=== PATIENT | female | born 1935 | race Caucasian/White ===

== ENCOUNTER 2017-06-13 11:49 | Inpatient (IN) | payer MEDICARE, OTHER ==
[~2017-06-13] VITALS: Ht 160 cm; Wt 71.0 kg
[~2017-06-13 11:49] MED LIST: ASPI325T4 PO; ATOR10TA65 PO; HYDR-3672 PO; LEVO100T87 PO; LOSA25TA5 PO; METF500T4 PO; MONT10TA24 PO; OMEP20CA16 PO; RANI150T5 PO
[2017-06-13 11:53] VITALS: Ht 160 cm; Wt 71.0 kg
[2017-06-13 12:10] VITALS: TEMP 97.8
[2017-06-13 12:38] LABS: BASOPHILS % 0.3 % (0.0-2.0); EOSINOPHILS # 0.1 10^3/ul (0.0-0.5); EOSINOPHILS % 1.5 % (0.0-7.0); HEMATOCRIT 34.1 % (37.0-47.0); HEMOGLOBIN 10.9 g/dl (12.0-16.0); LYMPHOCYTES # 0.9 10^3/ul (0.8-2.9); LYMPHOCYTES % 13.9 % (15.0-51.0); MEAN CORPUSCULAR HEMOGLOBIN 30.3 pg (29.0-33.0); MEAN CORPUSCULAR VOLUME 94.7 fl (82.0-101.0); MEAN PLATELET VOLUME 10.1 fl (7.4-10.4); MONOCYTE # 0.5 10^3/ul (0.3-0.9); MONOCYTES % 7.3 % (0.0-11.0); NEUTROPHIL # 5.1 10^3/ul (1.6-7.5); NEUTROPHILS % 76.8 % (39.0-77.0); PLATELET COUNT 258 10^3/UL (140-415); RED CELL DISTRIBUTION WIDTH 14.6 % (11.5-14.5); WHITE BLOOD COUNT 6.6 10^3/ul (4.8-10.8)
--- NOTE | 2017-06-13 13:01 | RADRPT ---
PROCEDURE: XR Chest. CLINICAL INDICATION: Chest pain. TECHNIQUE: Single frontal view. COMPARISON: 11/08/2015. FINDINGS: There is mild atelectasis at both lung bases, worse than seen previously. There is bilateral interst itial disease consistent with mild pulmonary edema. The lungs are otherwise clear. The heart is enlarged. There is calcification in the aorta consistent with atherosclerosis. There is no pleural effusion. There is no pneumothorax. IMPRESSION: 1. Mild atelectasis at the lung bases, worse than seen previously. 2. Mild pulmonary edema. 3. Cardiomegaly and atherosclerosis. 4. No other change from the 11/18/2015 chest radiograph. RPTAT: QQ .Javed Velasquez MD, MD Date Time Electronically viewed and signed by .Javed Velasquez MD, on 06/13/2017 13:01 .R/
[2017-06-13 13:03] LABS: CALCIUM 9.3 mg/dl (8.4-10.2); CREATININE 1.23 mg/dl (0.44-1.00); POTASSIUM 4.4 mmol/L (3.5-5.1)
[2017-06-13 13:14] LABS: TROPONIN-I 0.046 ng/ml (0.00-0.12)
--- NOTE | 2017-06-13 13:37 | RADRPT ---
PROCEDURE: CT Brain without contrast. CLINICAL INDICATION: Headache. TECHNIQUE: A CT of the brain was performed on multidetector high-resolution CT scanner utilizing a xial sections from the skull base through the vertex without contrast. The scan was reviewed in sof t tissue brain and high frequency resolution bone algorithm windows. Images were reviewed on a high -resolution PACS workstation. One or more the following does reduction techniques were utilized: Aut omated exposure control, adjustment of the mA/ or kV according to patient's size, or use of iterativ e reconstruction technique. The exam CTDI = 43.16 mGy and the DLP = 630.2 mGy-cm. COMPARISON: Brain CT 11/18/2015. FINDINGS: The ventricles and sulci are mildly prominent indicative of volume loss. There is no intracranial h emorrhage, mass effect or midline shift. No abnormal intra-axial or extra-axial fluid collections a re seen. The ken/white matter differentiation is preserved. There are mild to moderate foci of hypoattenuation in the white matter, which are nonspecific in rashawn ology but likely reflect chronic small vessel ischemic changes. There are mild intracranial vascula r calcifications consistent with atherosclerosis. The visualized paranasal sinuses are essentially c lear. IMPRESSION: 1. No acute intracranial hemorrhage, transcortical infarction or mass effect. 2. Mild intracranial atherosclerosis and mild to moderate chronic small vessel ischemic changes. 3. Mild generalized cerebral volume loss. RPTAT: HH .Jose G Aretaga MD, MD Date Time Electronically viewed and signed by .Jose G Arteaga MD, MD on 06/13/2017 13:36 .N/
[2017-06-13] MEDS ORDERED: ASPIRIN 81 MG TAB PO ONE (14:30)
[2017-06-13] MEDS ORDERED: SOD CHLORIDE 0.45% 1,000 ML IV SCH (15:27)
--- NOTE | 2017-06-13 15:27 | ERD ---
ER Documentation Chief Complaint Chief Complaint HTN FOR 2 DAYS; DENIES CP; NO SOB NOTED. STATES SHE IS ANXIOUS. HPI This is an 82-year-old female history of hypertension who presents to the emergency room for multiple complaints. History is provided via family member. The patient describes several days of elevated blood pressure despite compliance with blood pressure medication regimen. Her blood pressure was in the 170s and 180s last night, she also describes some chest pressure that was transient, pressure-like and nonradiating approximately 3 out of 10. She denies any headache. She does take Eliquis for atrial fibrillation. She is also describing increasing anxiety and depression over a 2-3 month timeframe. No suicidal thoughts. ROS All systems reviewed and are negative except as per history of present illness. Medications Home Meds Active Scripts Hydralazine Hcl* (Hydralazine Hcl*) 50 Mg Tab, 100 MG PO Q8 for 28 Days, TAB Prov:HARSHAD CLEARY MD 08/03/15 Atorvastatin Calcium (Atorvastatin Calcium) 10 Mg Tab, 10 MG PO HS for 28 Days, TAB Prov:HARSHAD CLEARY MD 08/03/15 Reported Medications Aspirin* (Aspirin*) 325 Mg Tablet, 325 MG PO DAILY, TAB 11/18/15 Montelukast Sodium* (Montelukast Sodium*) 10 Mg Tablet, 10 MG PO QHS, #30 TAB 11/18/15 Metformin* (Glucophage*) 500 Mg Tab, 500 MG PO BID WITH MEALS, #60 TAB 11/18/15 Losartan Potassium* (Losartan Potassium*) 25 Mg Tablet, 25 MG PO DAILY, TAB 11/18/15 Ranitidine Hcl* (Ranitidine Hcl*) 150 Mg Tablet, 150 MG PO HS, TAB 07/28/15 Omeprazole* (Omeprazole*) 20 Mg Capsule.dr, 20 MG PO AC BREAKFAST, CAP 12/17/14 Levothyroxine Sodium* (Levothyroxine Sodium*) 100 Mcg Tablet, 100 MCG PO DAILY, #1 03/13/11 Allergies Allergies: Coded Allergies: No Known Allergies (Verified Allergy, Unknown, 12/17/14) PMhx/Soc History of Surgery: No (right eye cataract sx) Anesthesia Reaction: No Hx Neurological Disorder: No Hx Respiratory Disorders: No Hx Cardiac Disorders: Yes (HTN, Dyspilidemia, atrial fibrillation) Hx Psychiatric Problems: No Hx Miscellaneous Medical Probl: No (Diet controlled DM) Hx Alcohol Use: Yes (social drinking ) Hx Substance Use: No Hx Tobacco Use: No Smoking Status: Never smoker FmHx Family History: No diabetes Physical Exam Vitals Vital Signs Date Time Temp Pulse Resp B/P Pulse Ox O2 Delivery O2 Flow Rate FiO2 06/13/17 15:09 120 18 176/89 100 Room Air 06/13/17 13:30 101 18 161/81 100 Room Air 06/13/17 12:10 97.8 97 18 146/99 100 Room Air 06/13/17 11:53 97.8 72 18 168/84 97 Physical Exam General: Well developed, well nourished, no acute distress Head: Normocephalic, atraumatic. Eyes: Pupils equally reactive, EOM intact ENT: Moist mucous membranes Neck: Supple, no lymphadenopathy Respiratory: Lungs clear bilaterally, no distress Cardiovascular: RRR, no murmurs, rubs, or gallops Abdominal: Soft, non-tender, non-distended, no peritoneal signs : Deferred MSK: No edema, no unilateral swelling, 5/5 strength Neurologic: Alert and oriented, moving all extremities, normal speech, no focal weakness, no cerebellar signs Skin: No rash Psych: Slight depression, no SI, anxiety noted Result Diagram: 06/13/17 1214 06/13/17 1214 Results 24 hrs Laboratory Tests Test 06/13/17 12:14 White Blood Count 6.610^3/ul Red Blood Count 3.6010^6/ul Hemoglobin 10.9g/dl Hematocrit 34.1% Mean Corpuscular Volume 94.7fl Mean Corpuscular Hemoglobin 30.3pg Mean Corpuscular Hemoglobin Concent 32.0g/dl Red Cell Distribution Width 14.6% Platelet Count 30904^3/UL Mean Platelet Volume 10.1fl Neutrophils % 76.8% Lymphocytes % 13.9% Monocytes % 7.3% Eosinophils % 1.5% Basophils % 0.3% Nucleated Red Blood Cells % 0.0/100WBC Neutrophils # 5.110^3/ul Lymphocytes # 0.910^3/ul Monocytes # 0.510^3/ul Eosinophils # 0.110^3/ul Basophils # 0.010^3/ul Nucleated Red Blood Cells # 0.010^3/ul Sodium Level 139mmol/L Potassium Level 4.4mmol/L Chloride Level 100mmol/L Carbon Dioxide Level 28mmol/L Anion Gap 15 Blood Urea Nitrogen 26mg/dl Creatinine 1.23mg/dl Glucose Level 136mg/dl Calcium Level 9.3mg/dl Troponin I 0.046ng/ml Current Medications Medications (Trade) Dose Ordered Sig/Yosef Route PRN Reason Start Time Stop Time Status Last Admin Dose Admin Aspirin (Aspirin) 324 mg ONCE ONCE PO 06/13/17 14:30 06/13/17 14:31 DC 06/13/17 15:16 Ondansetron HCl (Zofran Inj) 4 mg ER BRIDGE PRN IV NAUSEA AND/OR VOMITING 06/13/17 15:30 06/14/17 15:29 Acetaminophen (Tylenol Tab) 650 mg ER BRIDGE PRN PO MILD PAIN/FEVER 06/13/17 15:30 06/14/17 15:29 Alprazolam (Xanax) 0.125 mg ONCE ONCE PO 06/13/17 15:30 06/13/17 15:31 Procedures/MDM EKG, MONITORS, & DIAGNOSTIC IMAGING: EKG: EKG: I reviewed and interpreted a 12-lead EKG. Rhythm: a fib rate controlled Ectopy: None Intervals: No abnormalities ST segments: No elevations or depressions T waves: No contiguous inversions Chest x-ray: I reviewed and interpreted a 1 view of the chest Mediastinum: No enlargement Cardiac silhouette: No cardiomegaly Airspace: Clear lung lechuga bilaterally without evidence of pneumothorax Bones: No evidence of fracture CT brain: no acute process per radiology LAB INTERPRETATION: Mild anemia, mild renal insufficiency, negative troponin, UA pending MEDICAL DECISION MAKING: The patient's history, physical exam and clinical presentation is concerning for possible cardiogenic etiology and acute coronary syndrome. The patient's blood pressure was also elevated consistent with likely hypertensive urgency. No evidence of migratory pain to suggest dissection. The patient also has increasing depression which is likely leading to her presentation as well. Based on the patient's clinical exam and history and risk factors, I have a much lower clinical concern for pulmonary embolism, acute aortic dissection, pneumothorax, pneumonia, cardiac tamponade HEART Score: 4 MACE Rate: Upwards of 16.6% Shared Decision Making: We had a conversation regarding risk stratification, MACE rate, and the risks, benefits, alternatives of disposition planning options. Disposition planning: i recommend hospitalization to rule out ACS ER COURSE: The patient was given aspirin. She is asking for half a tablet of her Xanax which was provided. The patient's blood pressure was controlled on its own. The patient's rate is controlled with atrial fibrillation, no indication of RVR. The patient is stable at this point. I spoke to the transferring physician who recommends admission to our facility for observation status. This is reasonable. The patient will likely require outpatient follow-up in psychiatry evaluation. Potentially a artificial breeding ranch supervisor would be appropriate for this patient. She is a primary care appointment on Friday. I kept the patient and/or family informed of laboratory and diagnostic imaging results throughout the emergency room course. DISPOSITION PLAN: Telemetry admission for management of chest pain to rule out acute coronary syndrome, serial enzymes, risk stratification and consideration of provocative testing CONSULTATION: Accepting care team and consultations: I discussed the current laboratory data, diagnostic imaging and emergency care provided. Admitting team: Dr. Ray Admitting team indication: Insurance directed Departure Diagnosis: Primary Impression: History of atrial fibrillation Additional Impressions: Chest pain Chest pain type: unspecified Qualified Code: R07.9 - Chest pain, unspecified type Hypertensive urgency Depression Depression Type: unspecified Qualified Code: F32.9 - Depression, unspecified depression type Condition: NEVILLE Barton MD Jun 13, 2017 15:27
[2017-06-13] MEDS ORDERED: ALBUTEROL/IPRATROPIUM (NEB) 3 ML AMP HHN PRN (15:30)
[2017-06-13] MEDS ORDERED: NITROGLYCERIN (SL) 0.4 MG TAB SL PRN (15:30)
[2017-06-13] MEDS ORDERED: HYDROCODONE/APAP (5/325) TAB PO PRN (15:30)
[2017-06-13] MEDS ORDERED: ALPRAZOLAM 0.25 MG TAB PO ONE (15:30)
[2017-06-13] MEDS ORDERED: DOCUSATE SODIUM 100 MG CAP PO PRN (15:30)
[2017-06-13] MEDS ORDERED: morphine 2 MG INJ IV PRN (15:30)
[2017-06-13] MEDS ORDERED: NA PHOSPHATE/BIPHOS 133 ML ENEMA PR PRN (15:30)
[2017-06-13] MEDS ORDERED: ONDANSETRON 4 MG INJ IV PRN (15:30)
[2017-06-13] MEDS ORDERED: NACL 0.9% 3 ML SYG IV SCH (15:30)
[2017-06-13] MEDS ORDERED: ACETAMINOPHEN 325 MG TAB PO PRN (15:30)
[2017-06-13] MEDS ORDERED: MAGNESIUM HYDROXIDE 30ML CUP PO PRN (15:30)
[2017-06-13 16:01] LABS: INR 1.72; PARTIAL THROMBOPLASTIN TIME 32.8 Sec (25.0-35.0); PROTIME 20.3 Sec (12.2-14.2); PT RATIO 1.6
[2017-06-13] MEDS: hydrALAzine 20 MG INJ IV PRN (17:27)
[2017-06-13 17:35] VITALS: PULSE 122
[2017-06-13] MEDS ORDERED: DILTIAZEM-D5W 125MG/125ML DRIP 125 ML IV SCH (19:30)
[2017-06-13] MEDS ORDERED: DILTIAZEM 25 MG INJ IV ONE (19:30)
[2017-06-13 20:00] LABS: CK-MB 1.84 ng/ml (0.0-2.4); TROPONIN-I 0.048 ng/ml (0.00-0.12)
[2017-06-13 20:21] VITALS: PULSE 138
[2017-06-13 20:57] VITALS: BP 147/87; RESP 18
[2017-06-13 21:20] VITALS: BP 135/84; PULSE 95
[2017-06-14] VITALS (13 sets, daily range): BP systolic 114–214; BP diastolic 61–103; PULSE 66–107; RESP 19–27
[2017-06-14] MEDS: MONTELUKAST 10 MG TAB PO SCH ×2 (00:02→20:54)
[2017-06-14] MEDS: RANITIDINE 150 MG TAB PO SCH ×2 (00:02→20:54)
[2017-06-14] MEDS: ATORVASTATIN 10 MG TAB PO SCH ×3 (00:02→21:00)
[2017-06-14] MEDS: hydrALAzine 20 MG INJ IV PRN (00:02)
[2017-06-14 01:51] LABS: CK-MB 3.12 ng/ml (0.0-2.4); TROPONIN-I 0.067 ng/ml (0.00-0.12)
[2017-06-14] MEDS: LORAZEPAM 2 MG INJ IV PRN (03:37)
[2017-06-14] MEDS: METOPROLOL 25 MG TAB PO SCH ×3 (05:30→20:38)
--- NOTE | 2017-06-14 05:33 | HP ---
Date/Time of Note Date/Time of Note DATE: 06/14/17 TIME: 05:18 Assessment/Plan VTE Prophylaxis VTE Prophylaxis Intervention: other (Eliquis) Lines/Catheters IV Catheter Type (from Nrs): Peripheral IV Urinary Cath still in place: No Assessment/Plan Assessment/Plan 1. Chest pain -Continue telemetry monitoring -Obtain a 2D echo -Cardiology consult -So far all 3 troponins have been negative -Supplemental oxygen. Continue her home medications which includes aspirin, statin and ARB. Will add beta-jose, given her A. fib as well as elevated blood pressure 2. Hypertensive urgency -Continue home BP meds. Add beta-jose 3. A-fib with RVR, rate now is better controlled -Start beta-jose -Patient likely on Eliquis at home, but unable to confirm. She will be continued on high-dose aspirin 4. CKD, stable 5. Anxiety -Antianxiety medications as needed 6. History of asthma -Supplemental oxygen, as needed breathing treatments. Steroids as needed 7. Hypothyroidism -Continue Synthroid -Check TSH in a.m. 8. Type 2 diabetes -Check A1c -Insulin while in-house HPI/ROS Admit Date/Time Admit Date/Time Jun 13, 2017 at 15:04 Hx of Present Illness This is an 82-year-old female with a history of hypertension, atrial fibrillation, asthma, CKD, and anxiety who was brought to the ER for elevated blood pressure, anxiety, shortness of breath and chest pain. Symptoms started recently and have been progressively getting worse over the past day or two. Patient is a poor historian and as such information is gathered from chart review and ER physician who obtained information from family. Reportedly systolic blood pressure at home of been the 170s and 180s. Patient initially denied chest pain but then reported mild pain which is nonradiating. Reportedly , patient has been more anxious than usual for the past 2 months or so. When she presented to the ER, initial blood pressure was 168/84 but been as high as 214/97. She has been in A. fib with RVR with a heart rate as high as the 130s. EKG showed A-fib but at that time was rate controlled. Chest x-ray shows mild pulmonary edema and mild atelectasis at the lung bases, worse as compared to the chest x-ray from November 2015. Patient had cardiac cath in 2014 here which showed mild to moderate nonobstructive CAD. Labs shows a creatinine of 1.23, hemoglobin 11. So far all 3 troponins have been negative. PMH/Family/Social Past Surgical History Past Surgical Hx: noncontributory Social History Smoking Status: Never smoker Exam/Review of Systems Vital Signs Vitals Vital Signs Date Time Temp Pulse Resp B/P Pulse Ox O2 Delivery O2 Flow Rate FiO2 06/14/17 04:31 91 06/14/17 04:08 98.2 19 164/103 98 06/13/17 16:47 Room Air Intake and Output 06/13/17 06/13/17 06/14/17 15:00 23:00 07:00 Intake Total 150 ml Balance 150 ml Exam Constitutional: other (No acute distress) Head: atraumatic, normocephalic Eyes: PERRL Respiratory: clear to auscultation, normal air movement Cardiovascular: irregular rhythm Gastrointestinal: soft Extremities: normal pulses Labs Result Diagram: 06/13/17 1214 06/13/17 1214 Medications Medications Current Medications Ondansetron HCl (Zofran Inj) 4 mg Q6H PRN IV NAUSEA AND/OR VOMITING; Start 05/20 at 15:30 Acetaminophen (Tylenol Tab) 650 mg Q6H PRN PO PAIN LEVEL 1-3 OR FEVER; Start 06/13/17 at 15:30 Acetaminophen/ Hydrocodone Bitart ([place] (5/325)) 1 tab Q6H PRN PO MODERATE PAIN LEVEL 4-6; Start 06/13/17 at 15:30 Morphine Sulfate (morphine) 2 mg Q4H PRN IV SEVERE PAIN LEVEL 7-10; Start 05/20 at 15:30 Docusate Sodium (Colace) 100 mg Q12H PRN PO CONSTIPATION; Start 06/13/17 at 15 :30 Magnesium Hydroxide (Milk Of Mag) 30 ml DAILY PRN PO CONSTIPATION; Start 06/13 at 15:30 Sodium Biphosphate/ Sodium Phosphate (Fleet Enema) 133 ml DAILY PRN [place] CONSTIPATION; Start 06/13/17 at 15:30 Lorazepam (Ativan) 0.5 mg Q6H PRN IV ANXIETY Last administered on 06/14/17t 03 :37; Admin Dose 0.5 MG; Start 06/13/17 at 15:30 Hydralazine HCl (Apresoline) 10 mg Q6H PRN IV ELEVATED BLOOD PRESSURE Last administered on 06/14/17 00:02; Admin Dose 10 MG; Start 06/13/17 at 15:30 Nitroglycerin (Nitroglycerin (Sl Tab) 0.4 Mg) 1 tab Q5M PRN SL ANGINA; Start 06/13/17 at 15:30 Aspirin (Aspirin) 325 mg DAILY PO ; Start 06/14/17 at 09:00 Atorvastatin Calcium (Lipitor) 10 mg HS PO Last administered on 06/14/17 00: 02; Admin Dose 10 MG; Start 06/13/17 at 21:00 Hydralazine HCl (Apresoline) 100 mg Q8 PO Last administered on 06/14/17 00:01 ; Admin Dose 100 MG; Start 06/13/17 at 22:00 Levothyroxine Sodium (Synthroid) 100 mcg DAILY PO ; Start 06/14/17 at 09:00 Losartan Potassium (Cozaar) 25 mg DAILY PO ; Start 06/14/17 at 09:00 Montelukast Sodium (Singulair) 10 mg QHS PO Last administered on 06/14/17 00: 02; Admin Dose 10 MG; Start 06/13/17 at 21:00 Ranitidine HCl (Zantac) 150 mg HS PO Last administered on 06/14/17 00:02; Admin Dose 150 MG; Start 06/13/17 at 21:00 Influenza Virus Vaccine (Fluzone) 0.5 ml ONCE ONCE IM* ; Start 06/14/17 at 09: 00; Stop 06/14/17 at 09:01 Clonidine 0.1 mg 0.1 mg Q6H PRN PO SBP > 170 Last administered on 06/14/17 03 :38; Admin Dose 0.1 MG; Start 06/13/17 at 18:30 Diltiazem HCl (Cardizem-D5W 125 Mg/125 ml Drip) 125 ml @ 5 mls/hr Q24H IV Last administered on 06/13/17 19:45; Admin Dose 5 MLS/HR; Start 06/13/17 at 19:30 ALONSO BLANK MD Jun 14, 2017 05:32
[2017-06-14] MEDS ORDERED: GLUCAGON 1 MG INJ IM PRN (06:00)
[2017-06-14] MEDS ORDERED: GLUCOSE GEL 15 GRAM TUBE PO PRN ×2 (06:00)
[2017-06-14] MEDS ORDERED: GLUCOSE GEL 15 GRAM TUBE BUCCAL PRN (06:00)
[2017-06-14] MEDS ORDERED: DEXTROSE 50% 50 ML SYRINGE IV PRN ×2 (06:00)
[2017-06-14] MEDS: INSULIN ASPART [NOVOLOG] 3 ML PEN SC SCH ×4 (08:00→20:35)
[2017-06-14 08:29] LABS: BASOPHILS % 0.2 % (0.0-2.0); EOSINOPHILS % 0.1 % (0.0-7.0); HEMATOCRIT 31.9 % (37.0-47.0); HEMOGLOBIN 10.2 g/dl (12.0-16.0); LYMPHOCYTES # 0.9 10^3/ul (0.8-2.9); MEAN CORPUSCULAR HEMOGLOBIN 30.3 pg (29.0-33.0); MEAN CORPUSCULAR VOLUME 94.7 fl (82.0-101.0); MEAN PLATELET VOLUME 9.9 fl (7.4-10.4); MONOCYTE # 0.5 10^3/ul (0.3-0.9); MONOCYTES % 5.2 % (0.0-11.0); NEUTROPHIL # 8.1 10^3/ul (1.6-7.5); NEUTROPHILS % 84.9 % (39.0-77.0); PLATELET COUNT 261 10^3/UL (140-415); RED BLOOD COUNT 3.37 10^6/ul (4.20-5.40); RED CELL DISTRIBUTION WIDTH 14.8 % (11.5-14.5); WHITE BLOOD COUNT 9.5 10^3/ul (4.8-10.8)
[2017-06-14 08:41] LABS: CALCIUM 9.5 mg/dl (8.4-10.2); CHOL/HDL RATIO 3.4 RATIO; CREATININE 1.16 mg/dl (0.44-1.00); MAGNESIUM 1.8 mg/dl (1.7-2.5); PHOSPHORUS 5.5 mg/dl (2.5-4.9); POTASSIUM 4.4 mmol/L (3.5-5.1)
[2017-06-14] MEDS ORDERED: INFLUENZA VIRUS VACCINE 0.5 ML (DISPENSING) IM* ONE (09:00)
[2017-06-14] MEDS: LEVOTHYROXINE 100 MCG TAB PO SCH (09:11)
[2017-06-14 09:12] LABS: THYROID STIMULATING HORMONE 3.21 MIU/L (0.465-4.680)
[2017-06-14] MEDS: ASPIRIN 325 MG TAB PO SCH (09:12)
[2017-06-14] MEDS: LOSARTAN 25 MG TAB PO SCH (09:12)
--- NOTE | 2017-06-14 10:03 | RADRPT ---
Echocardiogram Report Patient Name: JOVITA SORENSEN Gender: Female Date: 1935 Study Date: 13-Jun-2017 Bilingual Speech Therapist: [facility] Location: [facility] [place] Ref. Physician: ANGEL ARENAS Quality: Technically Difficult Study Procedures: Transthoracic echocardiogram with complete 2D, M-Mode, and doppler examination. Indications: Atrial Fibrillation. Chest Pain. 2D/M Mode Doppler Measurement Value Normal Ranges Measurement Value Normal Ranges LVIDd 2D 4.0 3.5 - 5.6 cm AV Peak Oziel 1.1 m/sec LVIDs 2D 2.6 2.1 - 4.1 cm AV Peak PG 4.0 mmHg FS 2D 35.8 % LVOT Peak Oziel 1.0 m/sec LVPWd 2D 1.3 0.6 - 1.1 cm LVOT Peak PG 4.0 mmHg IVSd 2D 1.3 0.6 - 1.1 cm MV E Peak Oziel 1.4 m/sec IVS/LVPW 2D 1.0 MV Decel Time 155 msec AoR Diam 2D 2.6 2.0 - 3.7 cm TR Peak Oziel 4.0 m/sec LA/Ao 2D 2 0 - 1 TR Peak PG 64.0 mmHg EDV 2D 64.0 cm3 RVSP 72.0 mmHg ESV 2D 17.0 cm3 LA Dimen 2D 3.9 2.3 - 4.0 cm Findings Left Ventricle: Normal left ventricular systolic function. Normal left ventricular cavity size. Moderate concentric left ventricular hypertrophy. Ejection fraction is visually estimated at 60 %. Abnormal Diastolic Function. Right Ventricle: Normal right ventricular size. Mild right ventricular systolic dysfunction. Left Atrium: There is mild enlargement of left atrium. Right Atrium: There is mild enlargement of right atrium. Mitral Valve: Mild mitral leaflet calcification. Mild mitral annular calcification. Mild mitral valve regurgitation. Aortic Valve: No significant aortic stenosis or insufficiency. Aortic sclerosis without stenosis. Tricuspid Valve: Normal appearance of the tricuspid valve. Estimated peak PA systolic pressure 72 mmHg. There is mild tricuspid regurgitation. Pulmonic Valve: Pulmonic valve not well visualized. There is trace pulmonic regurgitation. Pericardium: Normal pericardium with no significant pericardial effusion. Aorta: Normal aortic root. IVC: Normal size with poor respiratory collapse consistent with elevated right atrial pressure. Conclusions 1.Normal left ventricular systolic function. Normal left ventricular cavity size. Moderate concentric left ventricular hypertrophy. Ejection fraction is visually estimated at 60 %. Abnormal Diastolic Function. 2.Normal right ventricular size. Mild right ventricular systolic dysfunction. 3.There is mild enlargement of left atrium. 4.There is mild enlargement of right atrium. 5.Mild mitral leaflet calcification. Mild mitral annular calcification. Mild mitral valve regurgitation. 6.No significant aortic stenosis or insufficiency. Aortic sclerosis without stenosis. 7.Normal appearance of the tricuspid valve. Estimated peak PA systolic pressure 72 mmHg. There is mild tricuspid regurgitation. 8.Normal size with poor respiratory collapse consistent with elevated right atrial pressure. Electronically Signed By: Robert Carlos 14-Jun-2017 10:02:24 -0800 Patient Name: JOVITA SORENSEN Study Date: 13-Jun-[id number]
[2017-06-14 10:04] LABS: CK-MB 3.04 ng/ml (0.0-2.4); TROPONIN-I 0.044 ng/ml (0.00-0.12)
--- NOTE | 2017-06-14 14:16 | CONS ---
Date/Time of Note Date/Time of Note DATE: 06/14/17 TIME: 14:16 Assessment/Plan Assessment/Plan Additional Assessment/Plan 82 yo with HTN,CAD, a. fib - will add po dilt and lovenox bid for a. fib CHADS2 > 1. Full note dictated. # [id number] Consultation Date/Type/Reason Admit Date/Time Jun 14, 2017 at 09:27 Initial Consult Date Exam/Review of Systems Vital Signs Vitals Vital Signs Date Time Temp Pulse Resp B/P Pulse Ox O2 Delivery O2 Flow Rate FiO2 06/14/17 12:31 90 06/14/17 11:51 97.0 19 114/67 96 06/13/17 16:47 Room Air Intake and Output 06/13/17 06/13/17 06/14/17 15:00 23:00 07:00 Intake Total 150 ml 240 ml Balance 150 ml 240 ml Results Result Diagram: 06/14/17 0725 06/14/17 0725 Results 24 hrs Laboratory Tests Test 06/13/17 19:04 06/14/17 00:50 06/14/17 07:25 06/14/17 08:36 Creatine Kinase 46 64 62 Creatine Kinase Index 4.0 4.9 4.9 Creatinine Kinase MB (Mass) 1.84 3.12 H 3.04 H Troponin I 0.048 0.067 0.044 White Blood Count 9.5 # Red Blood Count 3.37 L Hemoglobin 10.2 L Hematocrit 31.9 L Mean Corpuscular Volume 94.7 Mean Corpuscular Hemoglobin 30.3 Mean Corpuscular Hemoglobin Concent 32.0 Red Cell Distribution Width 14.8 H Platelet Count 261 Mean Platelet Volume 9.9 Neutrophils % 84.9 H Lymphocytes % 9.0 L Monocytes % 5.2 Eosinophils % 0.1 Basophils % 0.2 Nucleated Red Blood Cells % 0.0 Neutrophils # 8.1 H Lymphocytes # 0.9 Monocytes # 0.5 Eosinophils # 0.0 Basophils # 0.0 Nucleated Red Blood Cells # 0.0 Sodium Level 136 Potassium Level 4.4 Chloride Level 98 Carbon Dioxide Level 25 Anion Gap 17 H Blood Urea Nitrogen 28 H Creatinine 1.16 H Glucose Level 104 Hemoglobin A1c 5.3 Calcium Level 9.5 Phosphorus Level 5.5 H Magnesium Level 1.8 Triglycerides Level 64 Cholesterol Level 102 LDL Cholesterol, Calculated 59 HDL Cholesterol 30 L Cholesterol/HDL Ratio 3.4 Thyroid Stimulating Hormone (TSH) 3.210 Bedside Glucose 98 Medications Medications Current Medications Ondansetron HCl (Zofran Inj) 4 mg Q6H PRN IV NAUSEA AND/OR VOMITING; Start 05/20 at 15:30 Acetaminophen (Tylenol Tab) 650 mg Q6H PRN PO PAIN LEVEL 1-3 OR FEVER; Start 06/13/17 at 15:30 Acetaminophen/ Hydrocodone Bitart ([place] (5/325)) 1 tab Q6H PRN PO MODERATE PAIN LEVEL 4-6; Start 06/13/17 at 15:30 Morphine Sulfate (morphine) 2 mg Q4H PRN IV SEVERE PAIN LEVEL 7-10; Start 05/20 at 15:30 Docusate Sodium (Colace) 100 mg Q12H PRN PO CONSTIPATION; Start 06/13/17 at 15 :30 Magnesium Hydroxide (Milk Of Mag) 30 ml DAILY PRN PO CONSTIPATION; Start 06/13 at 15:30 Sodium Biphosphate/ Sodium Phosphate (Fleet Enema) 133 ml DAILY PRN [place] CONSTIPATION; Start 06/13/17 at 15:30 Lorazepam (Ativan) 0.5 mg Q6H PRN IV ANXIETY Last administered on 06/14/17 03 :37; Admin Dose 0.5 MG; Start 06/13/17 at 15:30 Hydralazine HCl (Apresoline) 10 mg Q6H PRN IV ELEVATED BLOOD PRESSURE Last administered on 06/14/17 00:02; Admin Dose 10 MG; Start 06/13/17 at 15:30 Nitroglycerin (Nitroglycerin (Sl Tab) 0.4 Mg) 1 tab Q5M PRN SL ANGINA; Start 06/13/17 at 15:30 Aspirin (Aspirin) 325 mg DAILY PO Last administered on 06/14/17 09:12; Admin Dose 325 MG; Start 06/14/17 at 09:00 Atorvastatin Calcium (Lipitor) 10 mg HS PO Last administered on 06/14/17 00: 02; Admin Dose 10 MG; Start 06/13/17 at 21:00 Hydralazine HCl (Apresoline) 100 mg Q8 PO Last administered on 06/14/17 00:01 ; Admin Dose 100 MG; Start 06/13/17 at 22:00 Levothyroxine Sodium (Synthroid) 100 mcg DAILY PO Last administered on 09:11; Admin Dose 100 MCG; Start 06/14/17 at 09:00 Losartan Potassium (Cozaar) 25 mg DAILY PO Last administered on 06/14/17 09: 12; Admin Dose 25 MG; Start 06/14/17 at 09:00 Montelukast Sodium (Singulair) 10 mg QHS PO Last administered on 06/14/17 00: 02; Admin Dose 10 MG; Start 06/13/17 at 21:00 Ranitidine HCl (Zantac) 150 mg HS PO Last administered on 06/14/17 00:02; Admin Dose 150 MG; Start 06/13/17 at 21:00 Clonidine 0.1 mg 0.1 mg Q6H PRN PO SBP > 170 Last administered on 06/14/17 03 :38; Admin Dose 0.1 MG; Start 06/13/17 at 18:30 Diltiazem HCl (Cardizem-D5W 125 Mg/125 ml Drip) 125 ml @ 5 mls/hr Q24H IV Last administered on 06/13/17 19:45; Admin Dose 5 MLS/HR; Start 06/13/17 at 19:30 Metoprolol Tartrate (Lopressor) 25 mg BID PO Last administered on 06/14/17 09 :12; Admin Dose 25 MG; Start 06/14/17 at 05:30 Insulin Glargine (Lantus) 10 unit DAILY@20 SC ; Start 06/14/17 at 20:00 Diagnostic Test (Pha) (Accu-Chek) 1 ea 02 XX ; Start 06/15/17 at 02:00 Miscellaneous Information 1 ea NOTE XX ; Start 06/14/17 at 06:00 Glucose (Glutose) 15 gm Q15M PRN PO DECREASED GLUCOSE; Start 06/14/17 at 06:00 Glucose (Glutose) 22.5 gm Q15M PRN PO DECREASED GLUCOSE; Start 06/14/17 at 06: 00 Dextrose (D50w Syringe) 25 ml Q15M PRN IV DECREASED GLUCOSE; Start 06/14/17 at 06:00 Dextrose (D50w Syringe) 50 ml Q15M PRN IV DECREASED GLUCOSE; Start 06/14/17 at 06:00 Glucagon (Glucagen) 1 mg Q15M PRN IM DECREASED GLUCOSE; Start 06/14/17 at 06: 00 Glucose (Glutose) 15 gm Q15M PRN BUCCAL DECREASED GLUCOSE; Start 06/14/17 at 06:00 LILIAN ABEBE MD Jun 14, 2017 14:16
[2017-06-14] MEDS: INSULIN GLARGINE [LANtus] 3 ML PEN SC SCH ×2 (20:00→20:34)
[2017-06-14] MEDS: ENOXAPARIN 100 MG/ML SYG SC SCH (20:35)
[2017-06-14] MEDS: DILTIAZEM 60 MG TAB GTB SCH (21:54)
[2017-06-14] MEDS: DILTIAZEM-D5W 125MG/125ML DRIP 125 ML IV SCH (21:55)
[2017-06-15] VITALS (15 sets, daily range): BP systolic 126–180; BP diastolic 53–82; PULSE 40–107; RESP 18–20
[2017-06-15] MEDS: ACCU-CHEK XX SCH ×2 (00:36→21:33)
[2017-06-15] MEDS ORDERED: ACCU-CHEK XX SCH (02:00)
[2017-06-15] MEDS: DILTIAZEM 60 MG TAB GTB SCH ×3 (05:45→19:48)
[2017-06-15 07:27] LABS: BASOPHILS % 0.2 % (0.0-2.0); EOSINOPHILS % 0.1 % (0.0-7.0); HEMATOCRIT 33.6 % (37.0-47.0); HEMOGLOBIN 10.4 g/dl (12.0-16.0); LYMPHOCYTES # 0.9 10^3/ul (0.8-2.9); LYMPHOCYTES % 9.5 % (15.0-51.0); MEAN CORPUSCULAR VOLUME 96.8 fl (82.0-101.0); MEAN PLATELET VOLUME 9.8 fl (7.4-10.4); MONOCYTE # 0.7 10^3/ul (0.3-0.9); MONOCYTES % 7.3 % (0.0-11.0); NEUTROPHILS % 82.6 % (39.0-77.0); PLATELET COUNT 255 10^3/UL (140-415); RED BLOOD COUNT 3.47 10^6/ul (4.20-5.40); RED CELL DISTRIBUTION WIDTH 14.5 % (11.5-14.5); WHITE BLOOD COUNT 9.7 10^3/ul (4.8-10.8)
[2017-06-15] MEDS: INSULIN ASPART [NOVOLOG] 3 ML PEN SC SCH ×4 (08:00→21:00)
[2017-06-15 08:05] LABS: CALCIUM 9.3 mg/dl (8.4-10.2); CREATININE 1.35 mg/dl (0.44-1.00); POTASSIUM 5.1 mmol/L (3.5-5.1)
[2017-06-15] MEDS: LEVOTHYROXINE 100 MCG TAB PO SCH (08:15)
[2017-06-15] MEDS: ASPIRIN 325 MG TAB PO SCH (08:15)
[2017-06-15] MEDS: LOSARTAN 25 MG TAB PO SCH (08:16)
[2017-06-15] MEDS: METOPROLOL 25 MG TAB PO SCH ×2 (08:16→19:50)
[2017-06-15] MEDS: ENOXAPARIN 100 MG/ML SYG SC SCH (08:17)
[2017-06-15 08:41] LABS: PHOSPHORUS 5.6 mg/dl (2.5-4.9)
[2017-06-15 09:03] LABS: TROPONIN-I 0.327 ng/ml (0.00-0.12)
--- NOTE | 2017-06-15 12:28 | PN ---
Date/Time of Note Date/Time of Note DATE: 06/15/17 TIME: 12:23 Assessment/Plan VTE Prophylaxis VTE Prophylaxis Intervention: SCD's Lines/Catheters IV C[facility]ter Type (from [facility]): Peripheral IV Urinary Cath still in place: No Assessment/Plan Chief Complaint/Hosp Course Assessment and plan 1. Chest pain. Echocardiogram with EF 60%. Head Track Coach following. Patient did have repeat troponin at size 0.87. Continue on Lovenox for now. Follow-up with cytopathology technologist or conditions. 2. Hypertensive urgency. Continue antihypertensives and adjust needed. 3. Atrial for ablation of rapid ventricular response. Continue on Cardizem. Stable at present. Patient resumed on Eliquis once able to obtain home dose 4. History of CKD. Monitor renal panel. Stable at present. 5. History of anxiety. Continue with anxiolytics. 6. History of asthma. No active lung spasm noted at this time. Will provide bronchodilators as needed. 7. Hypothyroidism. Continue on Synthroid 8. Diabetes. Type II. Continue insulin regimen. To be adjusted as needed. Disposition plan: Noted with elevated troponin level today. Follow-up on Willie. Continue on Lovenox as well as cardiovascular medications. Follow-up with cytopathology technologist. Discussed plan of care with Dr. Brandt Problems: Subjective 24 Hr Interval Summary Free Text/Dictation reports feeling generalized weakness Exam/Review of Systems Vital Signs Vitals Vital Signs Date Time Temp Pulse Resp B/P Pulse Ox O2 Delivery O2 Flow Rate FiO2 06/15/17 12:15 98.2 57 18 140/62 98 06/15/17 08:10 Nasal Cannula 2.0 Intake and Output 06/14/17 06/14/17 06/15/17 15:00 23:00 07:00 Intake Total 480 ml 160 ml Balance 480 ml 160 ml Exam Constitutional: alert, oriented Psych: anxiety Head: normocephalic Eyes: nl conjunctiva Neck: non-tender, supple Respiratory: clear to auscultation, normal air movement Cardiovascular: other (rate controlled at present) Gastrointestinal: non-tender, soft Musculoskeletal: nl extremities to inspection Neurological: MOBILE MARKETING MANAGER II-XII intact, nl mental status, nl speech Skin: nl turgor Results Result Diagram: 06/15/17 0704 06/15/17 0704 Results 24 hrs Laboratory Tests Test 06/14/17 17:12 06/14/17 20:23 06/15/17 07:04 06/15/17 08:12 Bedside Glucose 108 126 121 White Blood Count 9.7 Red Blood Count 3.47 L Hemoglobin 10.4 L Hematocrit 33.6 L Mean Corpuscular Volume 96.8 Mean Corpuscular Hemoglobin 30.0 Mean Corpuscular Hemoglobin Concent 31.0 L Red Cell Distribution Width 14.5 Platelet Count 255 Mean Platelet Volume 9.8 Neutrophils % 82.6 H Lymphocytes % 9.5 L Monocytes % 7.3 Eosinophils % 0.1 Basophils % 0.2 Nucleated Red Blood Cells % 0.0 Neutrophils # 8.0 H Lymphocytes # 0.9 Monocytes # 0.7 Eosinophils # 0.0 Basophils # 0.0 Nucleated Red Blood Cells # 0.0 Sodium Level 134 L Potassium Level 5.1 Chloride Level 96 L Carbon Dioxide Level 25 Anion Gap 18 H Blood Urea Nitrogen 37 H Creatinine 1.35 H Glucose Level 115 Calcium Level 9.3 Phosphorus Level 5.6 H Magnesium Level 2.0 Troponin I 0.327 *H Medications Medications Current Medications Ondansetron HCl (Zofran Inj) 4 mg Q6H PRN IV NAUSEA AND/OR VOMITING; Start 05/20 at 15:30 Acetaminophen (Tylenol Tab) 650 mg Q6H PRN PO PAIN LEVEL 1-3 OR FEVER; Start 06/13/17 at 15:30 Acetaminophen/ Hydrocodone Bitart ([place] (5/325)) 1 tab Q6H PRN PO MODERATE PAIN LEVEL 4-6; Start 06/13/17 at 15:30 Morphine Sulfate (morphine) 2 mg Q4H PRN IV SEVERE PAIN LEVEL 7-10; Start 05/20 at 15:30 Docusate Sodium (Colace) 100 mg Q12H PRN PO CONSTIPATION; Start 06/13/17 at 15 :30 Magnesium Hydroxide (Milk Of Mag) 30 ml DAILY PRN PO CONSTIPATION; Start 06/13 at 15:30 Sodium Biphosphate/ Sodium Phosphate (Fleet Enema) 133 ml DAILY PRN [place] CONSTIPATION; Start 06/13/17 at 15:30 Lorazepam (Ativan) 0.5 mg Q6H PRN IV ANXIETY Last administered on 06/14/17t 03 :37; Admin Dose 0.5 MG; Start 06/13/17 at 15:30 Hydralazine HCl (Apresoline) 10 mg Q6H PRN IV ELEVATED BLOOD PRESSURE Last administered on 06/14/17 00:02; Admin Dose 10 MG; Start 06/13/17 at 15:30 Nitroglycerin (Nitroglycerin (Sl Tab) 0.4 Mg) 1 tab Q5M PRN SL ANGINA; Start 06/13/17 at 15:30 Aspirin (Aspirin) 325 mg DAILY PO Last administered on 06/15/17 08:15; Admin Dose 325 MG; Start 06/14/17 at 09:00 Atorvastatin Calcium (Lipitor) 10 mg HS PO Last administered on 06/14/17 00: 02; Admin Dose 10 MG; Start 06/13/17 at 21:00 Hydralazine HCl (Apresoline) 100 mg Q8 PO Last administered on 06/15/17 05:43 ; Admin Dose 100 MG; Start 06/13/17 at 22:00 Levothyroxine Sodium (Synthroid) 100 mcg DAILY PO Last administered on 08:15; Admin Dose 100 MCG; Start 06/14/17 at 09:00 Losartan Potassium (Cozaar) 25 mg DAILY PO Last administered on 06/15/17 08: 16; Admin Dose 25 MG; Start 06/14/17 at 09:00 Montelukast Sodium (Singulair) 10 mg QHS PO Last administered on 06/14/17 20: 54; Admin Dose 10 MG; Start 06/13/17 at 21:00 Ranitidine HCl (Zantac) 150 mg HS PO Last administered on 06/14/17 20:54; Admin Dose 150 MG; Start 06/13/17 at 21:00 Clonidine (Catapres) 0.1 mg Q6H PRN PO SBP > 170 Last administered on 03:38; Admin Dose 0.1 MG; Start 06/13/17 at 18:30 Metoprolol Tartrate (Lopressor) 25 mg BID PO Last administered on 06/15/17 08 :16; Admin Dose 25 MG; Start 06/14/17 at 05:30 Insulin Glargine (Lantus) 10 unit DAILY@20 SC ; Start 06/14/17 at 20:00 Diagnostic Test (Pha) (Accu-Chek) 1 ea 02 XX ; Start 06/15/17 at 02:00 Miscellaneous Information 1 ea NOTE XX ; Start 06/14/17 at 06:00 Glucose (Glutose) 15 gm Q15M PRN PO DECREASED GLUCOSE; Start 06/14/17 at 06:00 Glucose (Glutose) 22.5 gm Q15M PRN PO DECREASED GLUCOSE; Start 06/14/17 at 06: 00 Dextrose (D50w Syringe) 25 ml Q15M PRN IV DECREASED GLUCOSE; Start 06/14/17 at 06:00 Dextrose (D50w Syringe) 50 ml Q15M PRN IV DECREASED GLUCOSE; Start 06/14/17 at 06:00 Glucagon (Glucagen) 1 mg Q15M PRN IM DECREASED GLUCOSE; Start 06/14/17 at 06: 00 Glucose (Glutose) 15 gm Q15M PRN BUCCAL DECREASED GLUCOSE; Start 06/14/17 at 06:00 Diltiazem HCl (Cardizem) 60 mg Q8 GTB Last administered on 06/15/17 05:45; Admin Dose 60 MG; Start 06/14/17 at 22:00 Enoxaparin Sodium 60 mg 60 mg BID SC Last administered on 06/15/17 08:17; Admin Dose 60 MG; Start 06/14/17 at 21:00 Diltiazem HCl (Cardizem-D5W 125 Mg/125 ml Drip) 125 ml @ 0 mls/hr TITRATE IV Last administered on 06/14/17 21:55; Admin Dose 5 MLS/HR; Start 06/14/17 at 15:00 JEFFREY DONG Jun 15, 2017 12:28
[2017-06-15 15:01] LABS: CK-MB 4.68 ng/ml (0.0-2.4)
[2017-06-15 15:07] LABS: TROPONIN-I 0.264 ng/ml (0.00-0.12)
--- NOTE | 2017-06-15 15:46 | CONS ---
Date/Time of Note Date/Time of Note DATE: 06/15/17 TIME: 15:43 Assessment/Plan Assessment/Plan Additional Assessment/Plan 1. A. Fib - rate controlled. Con't current Rx. 2, HTN - much better now, will adjust Rx - hold Losartan now with ARF and increased Cr 3. CAD - mildly elevated troponins -no CP - brock check another set in am 4. ARF - hold Losartan, check Ufor UTI 5. Malaise - lultifactorial - will monitor now Consultation Date/Type/Reason Admit Date/Time Jun 14, 2017 at 09:27 24 HR Interval Summary Free Text/Dictation Increased malaise - will follow clinically. ROS: No fever, no chills, no nausea, no vomiting, no diarrhea/constipation No recent weight changes No chest pain, no PND, no orthopnea No dizziness, blurred vision No thirst, no heat or cold intolerance Exam/Review of Systems Vital Signs Vitals Vital Signs Date Time Temp Pulse Resp B/P Pulse Ox O2 Delivery O2 Flow Rate FiO2 06/15/17 12:15 98.2 57 18 140/62 98 06/15/17 08:10 Nasal Cannula 2.0 Intake and Output 06/14/17 06/14/17 06/15/17 15:00 23:00 07:00 Intake Total 480 ml 160 ml Balance 480 ml 160 ml Exam General: WN/WD/NAD, AOx 3 HEENT: Unicetric/atraumatic/EOMI (follow commands) NECK: JVD elevated, no thyromegaly Lymph: no lymphadenopathy HEART: regular with no S3, II/ systolic murmur at apex LUNGS: Coarse sounds ABD: soft, NT, ND, +BS : Intact Neuro: non focal SKIN: chronic changes EXT: trace edema Results Result Diagram: 06/15/17 0704 06/15/17 0704 Results 24 hrs Laboratory Tests Test 06/14/17 17:12 06/14/17 20:23 06/15/17 07:04 06/15/17 08:12 Bedside Glucose 108 126 121 White Blood Count 9.7 Red Blood Count 3.47 L Hemoglobin 10.4 L Hematocrit 33.6 L Mean Corpuscular Volume 96.8 Mean Corpuscular Hemoglobin 30.0 Mean Corpuscular Hemoglobin Concent 31.0 L Red Cell Distribution Width 14.5 Platelet Count 255 Mean Platelet Volume 9.8 Neutrophils % 82.6 H Lymphocytes % 9.5 L Monocytes % 7.3 Eosinophils % 0.1 Basophils % 0.2 Nucleated Red Blood Cells % 0.0 Neutrophils # 8.0 H Lymphocytes # 0.9 Monocytes # 0.7 Eosinophils # 0.0 Basophils # 0.0 Nucleated Red Blood Cells # 0.0 Sodium Level 134 L Potassium Level 5.1 Chloride Level 96 L Carbon Dioxide Level 25 Anion Gap 18 H Blood Urea Nitrogen 37 H Creatinine 1.35 H Glucose Level 115 Calcium Level 9.3 Phosphorus Level 5.6 H Magnesium Level 2.0 Troponin I 0.327 *H Test 06/15/17 12:16 06/15/17 13:25 Bedside Glucose 124 Creatine Kinase 79 Creatine Kinase Index 5.9 Creatinine Kinase MB (Mass) 4.68 H Troponin I 0.264 *H Medications Medications Current Medications Ondansetron HCl (Zofran Inj) 4 mg Q6H PRN IV NAUSEA AND/OR VOMITING; Start 05/20 at 15:30 Acetaminophen (Tylenol Tab) 650 mg Q6H PRN PO PAIN LEVEL 1-3 OR FEVER; Start 06/13/17 at 15:30 Acetaminophen/ Hydrocodone Bitart ([place] (5/325)) 1 tab Q6H PRN PO MODERATE PAIN LEVEL 4-6; Start 06/13/17 at 15:30 Morphine Sulfate (morphine) 2 mg Q4H PRN IV SEVERE PAIN LEVEL 7-10; Start 05/20 at 15:30 Docusate Sodium (Colace) 100 mg Q12H PRN PO CONSTIPATION; Start 06/13/17 at 15 :30 Magnesium Hydroxide (Milk Of Mag) 30 ml DAILY PRN PO CONSTIPATION; Start 06/13 at 15:30 Sodium Biphosphate/ Sodium Phosphate (Fleet Enema) 133 ml DAILY PRN [place] CONSTIPATION; Start 06/13/17 at 15:30 Lorazepam (Ativan) 0.5 mg Q6H PRN IV ANXIETY Last administered on 06/14/17 03 :37; Admin Dose 0.5 MG; Start 06/13/17 at 15:30 Hydralazine HCl (Apresoline) 10 mg Q6H PRN IV ELEVATED BLOOD PRESSURE Last administered on 06/14/17 00:02; Admin Dose 10 MG; Start 06/13/17 at 15:30 Nitroglycerin (Nitroglycerin (Sl Tab) 0.4 Mg) 1 tab Q5M PRN SL ANGINA; Start 06/13/17 at 15:30 Aspirin (Aspirin) 325 mg DAILY PO Last administered on 06/15/17 08:15; Admin Dose 325 MG; Start 06/14/17 at 09:00 Atorvastatin Calcium (Lipitor) 10 mg HS PO Last administered on 06/14/17 00: 02; Admin Dose 10 MG; Start 06/13/17 at 21:00 Hydralazine HCl (Apresoline) 100 mg Q8 PO Last administered on 06/15/17 05:43 ; Admin Dose 100 MG; Start 06/13/17 at 22:00 Levothyroxine Sodium (Synthroid) 100 mcg DAILY PO Last administered on 08:15; Admin Dose 100 MCG; Start 06/14/17 at 09:00 Losartan Potassium (Cozaar) 25 mg DAILY PO Last administered on 06/15/17 08: 16; Admin Dose 25 MG; Start 06/14/17 at 09:00 Montelukast Sodium (Singulair) 10 mg QHS PO Last administered on 06/14/17 20: 54; Admin Dose 10 MG; Start 06/13/17 at 21:00 Ranitidine HCl (Zantac) 150 mg HS PO Last administered on 06/14/17 20:54; Admin Dose 150 MG; Start 06/13/17 at 21:00 Clonidine (Catapres) 0.1 mg Q6H PRN PO SBP > 170 Last administered on 03:38; Admin Dose 0.1 MG; Start 06/13/17 at 18:30 Metoprolol Tartrate (Lopressor) 25 mg BID PO Last administered on 06/15/17 08 :16; Admin Dose 25 MG; Start 06/14/17 at 05:30 Insulin Glargine (Lantus) 10 unit DAILY@20 SC ; Start 06/14/17 at 20:00 Diagnostic Test (Pha) (Accu-Chek) 1 ea 02 XX ; Start 06/15/17 at 02:00 Miscellaneous Information 1 ea NOTE XX ; Start 06/14/17 at 06:00 Glucose (Glutose) 15 gm Q15M PRN PO DECREASED GLUCOSE; Start 06/14/17 at 06:00 Glucose (Glutose) 22.5 gm Q15M PRN PO DECREASED GLUCOSE; Start 06/14/17 at 06: 00 Dextrose (D50w Syringe) 25 ml Q15M PRN IV DECREASED GLUCOSE; Start 06/14/17 at 06:00 Dextrose (D50w Syringe) 50 ml Q15M PRN IV DECREASED GLUCOSE; Start 06/14/17 at 06:00 Glucagon (Glucagen) 1 mg Q15M PRN IM DECREASED GLUCOSE; Start 06/14/17 at 06: 00 Glucose (Glutose) 15 gm Q15M PRN BUCCAL DECREASED GLUCOSE; Start 06/14/17 at 06:00 Diltiazem HCl 60 mg 60 mg Q8 GTB Last administered on 06/15/17 05:45; Admin Dose 60 MG; Start 06/14/17 at 22:00 Diltiazem HCl (Cardizem-D5W 125 Mg/125 ml Drip) 125 ml @ 0 mls/hr TITRATE IV Last administered on 06/14/17 21:55; Admin Dose 5 MLS/HR; Start 06/14/17 at 15:00 Enoxaparin Sodium (Lovenox) 60 mg BID SC ; Start 06/15/17 at 21:00 LILIAN ABEBE MD Jun 15, 2017 15:46
[2017-06-15 16:57] LABS: ADD UMIC YES; UR ASCORBIC ACID 40 mg/dL (NEGATIVE); UR BACTERIA FEW /HPF (NONE SEEN); UR BILIRUBIN (Dip) NEGATIVE (NEGATIVE); UR BLOOD (Dip) NEGATIVE (NEGATIVE); UR CLARITY SLIGHTLY CLOUDY (CLEAR); UR COLOR YELLOW (YELLOW); UR GLUCOSE (Dip) NEGATIVE (NEGATIVE); UR KETONES (Dip) NEGATIVE (NEGATIVE); UR LEUKOCYTE ESTERASE (Dip) TRACE Leu/ul (NEGATIVE); UR MUCUS FEW /HPF (NONE SEEN); UR NITRITE (Dip) NEGATIVE (NEGATIVE); UR RBC 2 /HPF (0-5); UR SPECIFIC GRAVITY (Dip) 1.018 (1.003-1.030); UR SQUAMOUS EPITHELIAL CELL FEW /HPF (FEW); UR TOTAL PROTEIN (Dip) NEGATIVE (NEGATIVE); UR UROBILINOGEN (Dip) NEGATIVE (NEGATIVE)
[2017-06-15 19:08] LABS: CK-MB 4.02 ng/ml (0.0-2.4)
[2017-06-15 19:11] LABS: TROPONIN-I 0.24 ng/ml (0.00-0.12)
[2017-06-15] MEDS: RANITIDINE 150 MG TAB PO SCH (19:49)
[2017-06-15] MEDS: MONTELUKAST 10 MG TAB PO SCH (19:49)
[2017-06-15] MEDS: ATORVASTATIN 10 MG TAB PO SCH (19:51)
[2017-06-15] MEDS: INSULIN GLARGINE [LANtus] 3 ML PEN SC SCH (20:00)
[2017-06-15] MEDS ORDERED: CEFTRIAXONE 1 GM/50 ML (PMX) 50 ML IVPB SCH (20:30)
--- NOTE | 2017-06-15 20:40 | RADRPT ---
PROCEDURE: XR Chest. CLINICAL INDICATION: Shortness of breath. TECHNIQUE: Single frontal view of the chest. COMPARISON: Chest radiograph dated November 18, 2015. FINDINGS: The heart is mildly enlarged, stable. Aorta calcifications are present. There are small bilateral pleural effusions. No evidence of pneumothorax. Degenerative changes of the spine are present. IMPRESSION: 1. Cardiomegaly with small bilateral pleural effusions. RPTAT:AAJJ Christelle Huynh Physician Date Time Electronically viewed and signed by Christelle Huynh Physician on 06/15/2017 20:39 QL/
[2017-06-15] MEDS: SERTRALINE 100 MG TAB PO SCH (21:28)
[2017-06-15] MEDS: ENOXAPARIN 60 MG/0.6 ML SYG SC SCH (21:32)
[2017-06-16] VITALS (61 sets, daily range): BP systolic 67–132; BP diastolic 30–108; PULSE 55–123; RESP 11–27
[2017-06-16] MEDS: ONDANSETRON 4 MG INJ IV PRN (00:28)
[2017-06-16] MEDS: LORAZEPAM 2 MG INJ IV PRN (03:42)
[2017-06-16] MEDS: DILTIAZEM 60 MG TAB GTB SCH ×3 (05:23→21:31)
[2017-06-16] MEDS ORDERED: SOD CHLORIDE 0.9% 250 ML IV ONE ×2 (06:30→07:30)
[2017-06-16] MEDS ORDERED: FLUMAZENIL 0.5 MG INJ ONE ×2 (07:00)
[2017-06-16] MEDS ORDERED: SUCCINYLCHOLINE CHLORIDE 100 MG/5 ML SYG IV ONE (07:00)
[2017-06-16] MEDS ORDERED: NALOXONE (0.4 MG/ML) INJ ONE ×2 (07:00)
--- NOTE | 2017-06-16 07:17 | CONS ---
DATE OF ADMISSION: 06/14/2017 DATE OF CONSULTATION: 06/14/2017 CARDIOLOGY CONSULTATION REFERRING PHYSICIAN: Nai Ray MD REASON FOR EVALUATION: Atrial fibrillation, hypertension. HISTORY OF PRESENT ILLNESS: Ms. Cornejo is a 82-year-old woman with history of hypertension, dyslip idemia, history of atrial fibrillation, history of chronic renal disease, anxiety, history of asthma , thyroid disease, as well as diabetes, comes to the hospital for evaluation of a difficult to contr ol hypertension in the setting of this event. The patient also had an episode of atrial fibrillatio n with rapid ventricular response, and I've been asked to see the patient in consultation. Currentl y, the patient is on diltiazem drip. She was in atrial fibrillation at 95 on presentation, as well as a little bit higher, but she is better now. For now, her blood pressure appears to be well contr olled. She is in some degree of fluid overload. For now, conservative therapy is expected. We brock l continue to optimize the patient's fluid status, as well as diurese her appropriately and continue rate control as necessary. We will also make sure the patient is appropriately anticoagulated in t he setting of her atrial fibrillation with high CHADS scores. PAST MEDICAL HISTORY: 1. Hypertension. 2. Dyslipidemia. 3. History of hypertension. She has history of coronary artery disease, history of acute renal pilar lure with creatinine 1.23. ALLERGIES: NO KNOWN DRUG ALLERGIES. SOCIAL HISTORY: The patient doesn't smoke, doesn't drink, doesn't use any drugs. FAMILY HISTORY: Negative for sudden cardiac or premature coronary artery disease. MEDICATIONS: Include: 1. Ondansetron 4 mg once a day. 2. Morphine sulfate. 3. Docusate. 4. Sodium 5. Lorazepam. 6. Hydralazine. 7. Nitroglycerin. 8. Aspirin 325 mg daily. 9. Losartan 25 . 10. 0.1 mg as needed. 11. Diltiazem drip now. REVIEW OF SYSTEMS: CONSTITUTIONAL: No fevers, no chills. Hypertension. HEENT: No changes in vision or hearing. CARDIAC: No chest pain reported now. RESPIRATORY: Shortness of breath, acute on chronic respiratory . GASTROINTESTINAL: No nausea, vomiting, diarrhea, constipation. GENITOURINARY: No dysuria, hematuria, . NEUROLOGIC: No focal neurologic deficits. PSYCHIATRIC: . PHYSICAL EXAMINATION: VITAL SIGNS: Temperature is 98.2, heart rate is in the 90s, blood pressure 114/67. GENERAL: She is a well-nourished woman in no acute distress, alert and oriented x3 in Romansh, awar e of her condition. Has been . HEAD: Normocephalic, atraumatic. Eyes: Anicteric. NECK: Supple. JVD 6-7 cm. There is no lymphadenopathy. No thyromegaly. HEART: Regular with soft murmur in mid chest, changes with respiration. PMI in the middle of chest. There is no S3. LUNGS: Coarse at bases. ABDOMEN: Distended, bowel sounds are present. There is no acute hepatomegaly or splenomegaly. GENITOURINARY: Intact. EXTREMITIES: Show no cyanosis, trace edema. SKIN: Does not show any discoloration. NEUROLOGICAL: She is able to move her extremities. She is in atrial fibrillation, now with a regular rate and rhythm. LABORATORY: ECG read by me shows atrial fibrillation with borderline tachycardia with some nonspeci fic changes. White blood cell count 9.5, hemoglobin is , platelets 261. INR is 1.72. S odium 136, potassium 4.4. Her BUN is 28, creatinine 1.16. Troponin is negative at 0.04. ASSESSMENT AND PLAN: 1. Atrial fibrillation, better rate controlled now. We will see if patient can tolerate p.o. medications instead of diltiazem drip. Will try to see if we can start her on p.o. diltiazem for o ptimization. 2. Secondary state. Patient is having global anticoagulation. For now, will con tinue Lovenox if Lovenox is tolerated well. Will switch to oral anticoagulation upon discharge. 3. Coronary artery disease. The patient's has history of coronary artery disease. Troponins are n egative now, no chest pain noted. 3. Hypertension. The patient has evidence of hypertension, better controlled now, will follow. 4. Chronic obstructive pulmonary disease, with wheezing. Continue to optimize medical therapy as p [facility] team follows. I would like to thank Dr. Ray for referring this patient for my evaluation. Dictated By: LILIAN ABEBE MD ML/NTS Conf#: [id number] DID#: [id number] CC: NAI RAY MD;*EndCC*
[2017-06-16 07:34] LABS: ABNORMAL IP MESSAGE 1; BASOPHILS % 0.1 % (0.0-2.0); HEMATOCRIT 31.8 % (37.0-47.0); HEMOGLOBIN 9.4 g/dl (12.0-16.0); LYMPHOCYTES # 0.5 10^3/ul (0.8-2.9); LYMPHOCYTES % 5.9 % (15.0-51.0); MEAN CORPUSCULAR HEMOGLOBIN 29.4 pg (29.0-33.0); MEAN CORPUSCULAR HGB CONC 29.6 g/dl (32.0-37.0); MEAN CORPUSCULAR VOLUME 99.4 fl (82.0-101.0); MEAN PLATELET VOLUME 9.9 fl (7.4-10.4); MONOCYTE # 0.4 10^3/ul (0.3-0.9); MONOCYTES % 4.8 % (0.0-11.0); NEUTROPHILS % 88.4 % (39.0-77.0); PLATELET COUNT 246 10^3/UL (140-415); RED CELL DISTRIBUTION WIDTH 14.4 % (11.5-14.5); WHITE BLOOD COUNT 7.9 10^3/ul (4.8-10.8)
[2017-06-16 07:36] LABS: POSITIVE DIFF @See below
[2017-06-16 07:57] LABS: CALCIUM 8.4 mg/dl (8.4-10.2); CREATININE 1.84 mg/dl (0.44-1.00)
[2017-06-16] MEDS: INSULIN ASPART [NOVOLOG] 3 ML PEN SC SCH ×4 (08:00→21:00)
[2017-06-16 08:01] LABS: POTASSIUM 5.5 mmol/L (3.5-5.1)
[2017-06-16] MEDS ORDERED: SOD CHLORIDE 0.9% 500 ML IV ONE ×4 (08:30→18:30)
[2017-06-16] MEDS: ENOXAPARIN 60 MG/0.6 ML SYG SC SCH (09:00)
[2017-06-16] MEDS: LEVOTHYROXINE 100 MCG TAB PO SCH (09:00)
[2017-06-16] MEDS: METOPROLOL 25 MG TAB PO SCH ×2 (09:00→20:21)
[2017-06-16] MEDS: ASPIRIN 325 MG TAB PO SCH (09:00)
[2017-06-16 09:17] LABS: AADO2 Arterial 470.9 mmHg (7.0-24.0); Allen Test ACCEPTAB; Arterial Base Excess -12.5 mmol/L (-3.0-3); Arterial COHb 0.2 % (0.0-3.0); Arterial Fraction of Oxyhgb 97.3 % (93.0-99.0); Arterial HCO3 21.3 mmol/L (22.0-26.0); Arterial MetHb 0.1 % (0.0-1.5); Arterial Total Hemglobin 11.6 g/dl (12.0-18.0); MODE MASK - NRB
--- NOTE | 2017-06-16 09:25 | EN ---
Date/Time of Note Date/Time of Note DATE: 06/16/17 TIME: :19 Event Note Medicine Medicine Event Note Rapid Response Note Called to bedside for hypotension and lethargy. Patient lethargic, minimally responsive. Reacts to noxiuos stimlui. Moves x 4 spontentously througout Vitals notable for hypotension to 80s/50s, HR 50s-60s, O2 80s on RA +++ JVD Cool extremities ABG with profound acute respiratory acidosis/hypercapnia Plan: Will give trial of narcan now Intubate if not response Move to ICU Give antibiotics empirically, degroot culture Follow cultures, labs Stat head CT DAISY PARIS MD Jun 16, 2017 09:25
[2017-06-16] MEDS ORDERED: VANCOMYCIN IV PER PHARMACY XX SCH (09:30)
[2017-06-16] MEDS ORDERED: NALOXONE (0.4 MG/ML) INJ IV ONE (09:30)
--- NOTE | 2017-06-16 10:17 | RADRPT ---
PROCEDURE: XR Chest. CLINICAL INDICATION: Chest pain TECHNIQUE: An AP view of the chest was obtained. COMPARISON: Chest x-ray dated 06/15/2017 FINDINGS: There is prominence of the interstitial and central pulmonary vascular markings with small bilatera l pleural effusions. Fluid is seen tracking along the right minor fissure. No focal airspace opacif ication or pneumothorax is seen. The cardiomediastinal silhouette is mildly enlarged . Calcificati ons are seen within the aortic arch. The osseous structures demonstrate senescent changes. IMPRESSION: 1. Findings suggestive of pulmonary vascular congestion with small bilateral pleural effusions. No significant interval change. 2. Mild cardiomegaly and aortic atherosclerosis. RPTAT: HH .Ramandeep Cagle MD, Date Time Electronically viewed and signed by .Ramandeep Cagle MD, on 06/16/2017 10:17 .G/
[2017-06-16] MEDS ORDERED: NORepinephrine 8MG/250 ML (PMX 250 ML ONE (10:20)
[2017-06-16] MEDS ORDERED: LIDOCAINE 1% (MPF) 5 ML VIAL SC ONE (10:30)
[2017-06-16] MEDS: VANCOMYCIN 1.5 GM in SOD CHLORIDE 0.9% 250 ML IVPB SCH ×2 (10:30→14:43)
[2017-06-16] MEDS ORDERED: DOPamine-D5W 1.6 MG/ML 250 ML IV SCH (11:00)
--- NOTE | 2017-06-16 11:00 | CONS ---
Date/Time of Note Date/Time of Note DATE: 06/16/17 TIME: 10:49 Assessment/Plan Assessment/Plan Chief Complaint/Hosp Course IMP: 1.Hypotension 2. AF with RVR 3. Renal failure 4. Hypercarbic resp failure 5. Hypothyroid 6. Renal failure Recc: -Tele -serial ecg's -Continue pressors support -Follow volume status closely -Picc line placement -Continue Bipap resp support -Continue lovenox but adjust dose -Hold dilt while patient on pressors Problems: Consultation Date/Type/Reason Admit Date/Time Jun 14, 2017 at 09:27 Initial Consult Date 06/15/17 Type of Consultation: Cardiology Reason for Consultation CHF Referring Provider: SARAH VINCENT Exam/Review of Systems Vital Signs Vitals Vital Signs Date Time Temp Pulse Resp B/P Pulse Ox O2 Delivery O2 Flow Rate FiO2 06/16/17 09:54 96.0 63 18 125/108 100 BIPAP 06/16/17 09:45 40 06/15/17 20:00 2.0 Intake and Output 06/15/17 06/15/17 06/16/17 15:00 23:00 07:00 Intake Total 600 ml 100 ml Balance 600 ml 100 ml Exam Review of Systems: CONSTITUTIONAL: No fevers, chills. PULMONARY: No sob CARDIOVASCULAR: No chest pain/palpitations GASTROINTESTINAL: No nausea/vomiting. GENITOURINARY: No hematuria/dysuria. MUSCULOSKELETAL: No myagias/arthalgias. PSYCHIATRIC: The patient denies depression. NEUROLOGIC: No weakness Constitutional: alert Psych: no complaints Head: normocephalic ENMT: mucosa pink and moist Neck: jvd (9 cm water), supple Respiratory: diminished breath sounds (at bases/B) Cardiovascular: regular rate and rhythm Gastrointestinal: non-tender, soft Musculoskeletal: muscle tone (normal) Extremities: pitting pedal edema (trace/B) Neurological: other (No focal deficits) Results Result Diagram: 06/16/17 0659 06/16/17 0659 Results 24 hrs Laboratory Tests Test 06/15/17 12:16 06/15/17 13:25 06/15/17 16:00 06/15/17 17:02 Bedside Glucose 124 114 Creatine Kinase 79 Creatine Kinase Index 5.9 Creatinine Kinase MB (Mass) 4.68 H Troponin I 0.264 *H Urine Color YELLOW Urine Clarity SLIGHTLY CLOUDY A Urine pH 5.0 Urine Specific [place] 1.018 Urine Ketones NEGATIVE Urine Nitrite NEGATIVE Urine Bilirubin NEGATIVE Urine Urobilinogen NEGATIVE Urine Leukocyte Esterase TRACE A Urine Microscopic RBC 2 Urine Microscopic WBC 17 H Urine Squamous Epithelial Cells FEW Urine Bacteria FEW A Urine Mucus FEW A Urine Hemoglobin NEGATIVE Urine Glucose NEGATIVE Urine Total Protein NEGATIVE Test 06/15/17 18:29 06/15/17 21:25 06/16/17 00:27 06/16/17 06:59 Creatine Kinase 80 Creatine Kinase Index 5.0 Creatinine Kinase MB (Mass) 4.02 H Troponin I 0.240 *H Bedside Glucose 165 187 White Blood Count 7.9 Red Blood Count 3.20 L Hemoglobin 9.4 L Hematocrit 31.8 L Mean Corpuscular Volume 99.4 Mean Corpuscular Hemoglobin 29.4 Mean Corpuscular Hemoglobin Concent 29.6 L Red Cell Distribution Width 14.4 Platelet Count 246 Mean Platelet Volume 9.9 Neutrophils % 88.4 H Lymphocytes % 5.9 L Monocytes % 4.8 Eosinophils % 0.0 Basophils % 0.1 Nucleated Red Blood Cells % 0.0 Neutrophils # 7.0 Lymphocytes # 0.5 L Monocytes # 0.4 Eosinophils # 0.0 Basophils # 0.0 Nucleated Red Blood Cells # 0.0 Sodium Level 133 L Potassium Level 5.5 H Chloride Level 96 L Carbon Dioxide Level 24 Anion Gap 19 H Blood Urea Nitrogen 45 H Creatinine 1.84 H Glucose Level 201 Calcium Level 8.4 Test 06/16/17 07:53 06/16/17 08:49 Bedside Glucose 192 Blood Gas Specimen Source Blood arterial Arterial Blood Date Drawn 06/16/2017 9:05:20 AM Arterial Blood pH (Temp corrected) 6.929 *L Arterial Blood pCO2 (Temp correct) 103.9 *H Arterial Blood pO2 (Temp corrected) 138.2 H Arterial Blood HCO3 21.3 L Arterial Blood Base Excess -12.5 L Arterial Blood Oxygen Saturation 97.6 [place] Test ACCEPTAB Arterial Blood Gas Puncture Site Right Radial Arterial Blood Carboxyhemoglobin 0.2 Arterial Blood Methemoglobin 0.1 Blood Gas A-a O2 Differential 470.9 H Oxyhemoglobin Percent 97.3 Total Hemoglobin 11.6 L Blood Gas Temperature 37.0 Blood Gas Modality MASK - NRB FiO2 100.0 Blood Gas Critical Value Read Back I ORTIZ RN Blood Gas Notified Whom JLD Blood Gas Notified Time 06/16/2017 9:15:47 AM Medications Medications Current Medications Ondansetron HCl (Zofran Inj) 4 mg Q6H PRN IV NAUSEA AND/OR VOMITING Last administered on 06/16/17 00:28; Admin Dose 4 MG; Start 06/13/17 at 15:30 Acetaminophen (Tylenol Tab) 650 mg Q6H PRN PO PAIN LEVEL 1-3 OR FEVER; Start 06/13/17 at 15:30 Acetaminophen/ Hydrocodone Bitart ([place] (5/325)) 1 tab Q6H PRN PO MODERATE PAIN LEVEL 4-6; Start 06/13/17 at 15:30 Morphine Sulfate (morphine) 2 mg Q4H PRN IV SEVERE PAIN LEVEL 7-10; Start 05/20 at 15:30 Docusate Sodium (Colace) 100 mg Q12H PRN PO CONSTIPATION; Start 06/13/17 at 15 :30 Magnesium Hydroxide (Milk Of Mag) 30 ml DAILY PRN PO CONSTIPATION; Start 06/13 at 15:30 Sodium Biphosphate/ Sodium Phosphate (Fleet Enema) 133 ml DAILY PRN [place] CONSTIPATION; Start 06/13/17 at 15:30 Lorazepam (Ativan) 0.5 mg Q6H PRN IV ANXIETY Last administered on 06/16/17 03 :42; Admin Dose 0.5 MG; Start 06/13/17 at 15:30 Hydralazine HCl (Apresoline) 10 mg Q6H PRN IV ELEVATED BLOOD PRESSURE Last administered on 06/14/17 00:02; Admin Dose 10 MG; Start 06/13/17 at 15:30 Nitroglycerin (Nitroglycerin (Sl Tab) 0.4 Mg) 1 tab Q5M PRN SL ANGINA; Start 06/13/17 at 15:30 Aspirin (Aspirin) 325 mg DAILY PO Last administered on 06/15/17 08:15; Admin Dose 325 MG; Start 06/14/17 at 09:00 Atorvastatin Calcium (Lipitor) 10 mg HS PO Last administered on 06/14/17 00: 02; Admin Dose 10 MG; Start 06/13/17 at 21:00 Hydralazine HCl (Apresoline) 100 mg Q8 PO Last administered on 06/15/17 21:28 ; Admin Dose 100 MG; Start 06/13/17 at 22:00 Levothyroxine Sodium (Synthroid) 100 mcg DAILY PO Last administered on 08:15; Admin Dose 100 MCG; Start 06/14/17 at 09:00 Montelukast Sodium (Singulair) 10 mg QHS PO Last administered on 06/15/17 19: 49; Admin Dose 10 MG; Start 06/13/17 at 21:00 Ranitidine HCl (Zantac) 150 mg HS PO Last administered on 06/15/17 19:49; Admin Dose 150 MG; Start 06/13/17 at 21:00 Clonidine (Catapres) 0.1 mg Q6H PRN PO SBP > 170 Last administered on 03:38; Admin Dose 0.1 MG; Start 06/13/17 at 18:30 Metoprolol Tartrate (Lopressor) 25 mg BID PO Last administered on 06/15/17 19 :50; Admin Dose 25 MG; Start 06/14/17 at 05:30 Insulin Glargine (Lantus) 10 unit DAILY@20 SC ; Start 06/14/17 at 20:00 Diagnostic Test (Pha) (Accu-Chek) 1 ea 02 XX ; Start 06/15/17 at 02:00 Miscellaneous Information 1 ea NOTE XX ; Start 06/14/17 at 06:00 Glucose (Glutose) 15 gm Q15M PRN PO DECREASED GLUCOSE; Start 06/14/17 at 06:00 Glucose (Glutose) 22.5 gm Q15M PRN PO DECREASED GLUCOSE; Start 06/14/17 at 06: 00 Dextrose (D50w Syringe) 25 ml Q15M PRN IV DECREASED GLUCOSE; Start 06/14/17 at 06:00 Dextrose (D50w Syringe) 50 ml Q15M PRN IV DECREASED GLUCOSE; Start 06/14/17 at 06:00 Glucagon (Glucagen) 1 mg Q15M PRN IM DECREASED GLUCOSE; Start 06/14/17 at 06: 00 Glucose (Glutose) 15 gm Q15M PRN BUCCAL DECREASED GLUCOSE; Start 06/14/17 at 06:00 Diltiazem HCl 60 mg 60 mg Q8 GTB Last administered on 06/15/17 19:48; Admin Dose 60 MG; Start 06/14/17 at 22:00 Diltiazem HCl (Cardizem-D5W 125 Mg/125 ml Drip) 125 ml @ 0 mls/hr TITRATE IV Last administered on 06/14/17 21:55; Admin Dose 5 MLS/HR; Start 06/14/17 at 15:00 Enoxaparin Sodium (Lovenox) 60 mg BID SC Last administered on 06/15/17 21:32 ; Admin Dose 60 MG; Start 06/15/17 at 21:00 Sertraline HCl 50 mg 50 mg HS PO Last administered on 06/15/17 21:28; Admin Dose 50 MG; Start 06/15/17 at 21:00 Piperacillin Sod/ Tazobactam Sod 50 ml @ 100 mls/hr Q6 IVPB ; Start 06/16/17 at 12:00 Vancomycin HCl 1.5 gm/Sodium Chloride 250 ml @ 83.333 mls/ hr ONCE IVPB ; Start 06/16/17 at 10:30; Stop 06/16/17 at 13:29 Vancomycin HCl 750 mg/Dextrose/ Water 150 ml @ 75 mls/hr Q36H IVPB ; Start at 22:00 Norepinephrine 250 ml @ 1.875 mls/ hr TITRATE IV ; Start 06/16/17 at 10:30 Sodium Chloride (NS) 500 ml @ 500 mls/hr Q1H ONCE IV ; Start 06/16/17 at 11:00 ; Stop 06/16/17 at 11:59 WEN GOFF Jun 16, 2017 10:59
[2017-06-16 11:10] LABS: CK-MB 5.16 ng/ml (0.0-2.4)
[2017-06-16 11:11] LABS: TROPONIN-I 0.197 ng/ml (0.00-0.12)
[2017-06-16 11:14] LABS: AADO2 Arterial 89.6 mmHg (7.0-24.0); Allen Test ACCEPTAB; Arterial Base Excess -9.9 mmol/L (-3.0-3); Arterial COHb 0.1 % (0.0-3.0); Arterial Fraction of Oxyhgb 96.8 % (93.0-99.0); Arterial MetHb 0.1 % (0.0-1.5); Arterial Total Hemglobin 11.3 g/dl (12.0-18.0); MODE MASK - BIPAP
[2017-06-16 11:17] LABS: Blood Gas IEPAP 20/6
[2017-06-16] MEDS: ALBUMIN HUMAN 25% 100 ML IV SCH ×2 (12:00→13:01)
[2017-06-16] MEDS: PIPER-TAZO 2.25 GM (PMX) 50 ML IVPB SCH ×4 (12:00→18:23)
--- NOTE | 2017-06-16 12:28 | CONS ---
DATE OF ADMISSION: 06/14/2017 DATE OF CONSULTATION: TYPE OF CONSULTATION: Pulmonary. REASON FOR CONSULTATION: Shortness of breath and altered mental status. HISTORY OF PRESENT ILLNESS: This is an 82-year-old lady originally admitted with chest pain and hyp ertensive urgency, atrial fibrillation with rapid ventricular rate. She has a history of atrial fib rillation, COPD, chronic kidney disease, anxiety disorder per chart, but this morning was found to b e more altered and arterial blood gas demonstrated severe hypercapnic respiratory failure. The zhao ent was emergently transferred to intensive care unit following administration of flumazenil and Shawn can and initiation of noninvasive positive pressure ventilation. Her neurological status is slowly improving. PAST MEDICAL HISTORY: 1. Atrial fibrillation. 2. Hypertension. MEDICATIONS: Per chart. ALLERGIES: NONE. SOCIAL HISTORY: Nonsmoker, no alcohol, no history of drug use. FAMILY HISTORY: Noncontributory. SYSTEMS REVIEW: A 12-point review of systems was negative other than that mentioned above. PHYSICAL EXAMINATION: GENERAL: Elderly-appearing lady, opens eyes to voice. Now beginning to follow simple commands, on BiPAP. VITAL SIGNS: Temperature 98, pulse is 70, blood pressure 83/48, O2 saturation 96%, FIO2 40% BiPAP. NECK: Supple. No JVD or lymphadenopathy. CARDIAC: S1, S2, no added sounds or murmurs. CHEST: Diminished air entry both lung bases. ABDOMEN: Soft, nontender. No guarding or rebound. EXTREMITIES: No cyanosis, clubbing, 1+ edema. NEUROLOGIC: Generalized weakness. LABORATORY DATA: White count 7.9, hemoglobin 9.4, platelets of 246. BUN 45, creatinine 1.84. INR 1.72. ABG this morning, pH 6.9, pCO2 of 103, PaO2 of 138. IMPRESSION: 1. Acute hypercapnic respiratory failure, possibly secondary to administration of Ativan 0.5 mg thi s morning. 2. History of hypertension. 3. Atrial fibrillation with rapid ventricular rate. 4. Diabetes mellitus. The patient will require 1. Continued noninvasive positive pressure ventilation. 2. Serial arterial blood gases to ensure resolution of hypercapnia, improvement in pH. 3. Avoid all sedation. 4. Deep venous thrombosis and gastrointestinal prophylaxis. Dictated By: YAZMIN PATEL/TAZ Conf#: [id number] DID#: [id number] CC: SARAH VINCENT MD;*End*
--- NOTE | 2017-06-16 13:19 | RADRPT ---
PROCEDURE: XR Chest. CLINICAL INDICATION: PICC line placement TECHNIQUE: Single frontal view of the chest was obtained COMPARISON: 06/16/2017 FINDINGS: There is a new left-sided PICC line in place with its tip overlying the cavoatrial junction. There is mild cardiomegaly. There is a small to moderate loculated right pleural effusion with right lower lobe atelectasis. The re is a small left pleural effusion. RPTAT: AA IMPRESSION: New PICC line in appropriate position. Small to moderate loculated right pleural effusion. Small left pleural effusion. .Kieran Driscoll MD, MD Date Time Electronically viewed and signed by .Kieran Driscoll MD, on 06/16/2017 13:18 .S/
[2017-06-16] MEDS: NORepinephrine 8MG/250 ML (PMX 250 ML IV SCH (13:22)
[2017-06-16 14:05] LABS: AADO2 Arterial 31.6 mmHg (7.0-24.0); Allen Test ACCEPTAB; Arterial Base Excess -7.3 mmol/L (-3.0-3); Arterial COHb 0.2 % (0.0-3.0); Arterial Fraction of Oxyhgb 95.9 % (93.0-99.0); Arterial HCO3 23.3 mmol/L (22.0-26.0); Arterial MetHb 0.1 % (0.0-1.5); Arterial Total Hemglobin 11.8 g/dl (12.0-18.0); Blood Gas IEPAP 20/6; MODE MASK - BIPAP
--- NOTE | 2017-06-16 14:13 | RADRPT ---
PROCEDURE: Ultrasound guidance for placement of needle in left upper extremity vein. CLINICAL INDICATION: Venous access. TECHNIQUE: Limited sonography of the left upper extremity was performed. Ultrasound images were recorded and s tored in the patient's medical record. COMPARISON: None. FINDINGS: The ultrasound images demonstrate a patent left upper extremity vein. The PICC line was inserted by the PICC line nurse. IMPRESSION: 1. Ultrasound guidance for a needle placement in a left upper extremity vein. 2. The left upper extremity vein is patent. RPTAT: QQ .Javed Velasquez MD, MD Date Time Electronically viewed and signed by .Javed Velasquez MD, MD on 06/16/2017 14:13 .R/
[2017-06-16 17:11] LABS: AADO2 Arterial 48.3 mmHg (7.0-24.0); Allen Test ACCEPTAB; Arterial Base Excess -8.1 mmol/L (-3.0-3); Arterial COHb 0.4 % (0.0-3.0); Arterial Fraction of Oxyhgb 94.7 % (93.0-99.0); Arterial HCO3 22.1 mmol/L (22.0-26.0); Arterial MetHb 0 % (0.0-1.5); Arterial Total Hemglobin 11.4 g/dl (12.0-18.0); Blood Gas IEPAP 22/6; MODE MASK - BIPAP
[2017-06-16] MEDS ORDERED: SOD CHLORIDE 0.9% 100 ML ONE (17:57)
--- NOTE | 2017-06-16 18:55 | EN ---
Date/Time of Note Date/Time of Note DATE: 06/16/17 TIME: 18:36 Event Note Medicine Medicine Event Note Patient reviewed multiple times throughout the day. Labs and examination repeated. Arterial blood gases demonstrate slow improvement in respiratory acidosis. Clinically however she is significantly more alert opens eyes and follows commands. She continues vasopressor support following PICC line placement. Minimal urine output. Examination is largely unchanged. Chest is clear to auscultation abdomen is soft nontender with no guarding or rebound extremities has mild pitting edema. Peripheral circulation is intact. Labs demonstrate slowly improving PCO2. Still with significant respiratory acidosis. Concern is for progressive septic shock with impending renal failure. Case was discussed with patient's daughter and granddaughter. I explained that she may continue to deteriorate and may not be able to compensate with noninvasive positive pressure ventilation. In addition she may require hemodialysis if renal function continues to worsen. Family states the patient never wanted intubation on mechanical ventilation and did not want hemodialysis. However at this point if she does require temporary mechanical ventilation they would consider this. Family also made aware that prognosis is guarded. We will continue with aggressive volume resuscitation as tolerated, repeat lactic acid and arterial blood gas this evening. Renal ultrasound has been requested. I will request renal electrolytes. Patient would benefit from renal consult. If her metabolic and respiratory acidosis does not improve she will require intubation which the family are made aware of. Dr. Piyush Storey is now attending physician on case. Case was discussed with nursing staff at length multiple times throughout the day. YAZMIN VARGAS MD, [facility] Jun 16, 2017 18:46
--- NOTE | 2017-06-16 19:15 | RADRPT ---
PROCEDURE: Renal US. CLINICAL INDICATION: Renal dysfunction. No urine output. TECHNIQUE: Multiple sonographic images of the kidneys and urinary bladder were obtained. The imag es were reviewed on a PACS workstation. COMPARISON: No prior studies are available for comparison. FINDINGS: The right kidney measures 8.5 x 4.0 x 4.9 cm. The left kidney measures 8.1 x 4.1 x 3.4 cm. There is no solid renal mass. There is a benign cyst in the mid left kidney measuring 1.8 x 2.1 x 1. 8 cm. There is no hydronephrosis. There is no renal calculus. Renal parenchymal thickness is normal bilaterally. Echogenicity is normal bilaterally. The perirenal regions are normal with no fluid collection or mass. There is a Marie catheter in the urinary bladder. IMPRESSION: 1. Benign left renal cyst measuring 2.1 cm. 2. Marie catheter in the bladder. 3. No hydronephrosis. 4. Otherwise unremarkable renal ultrasound. RPTAT: QQ .Javed Velasquez MD, Date Time Electronically viewed and signed by .Javed Velasquez MD, on 06/16/2017 19:14 .R/
[2017-06-16 19:35] LABS: ABNORMAL IP MESSAGE 1; BASOPHILS % 0.1 % (0.0-2.0); HEMATOCRIT 31.1 % (37.0-47.0); HEMOGLOBIN 9.5 g/dl (12.0-16.0); LYMPHOCYTES # 0.4 10^3/ul (0.8-2.9); LYMPHOCYTES % 4.9 % (15.0-51.0); MEAN CORPUSCULAR HEMOGLOBIN 30.4 pg (29.0-33.0); MEAN CORPUSCULAR HGB CONC 30.5 g/dl (32.0-37.0); MEAN CORPUSCULAR VOLUME 99.4 fl (82.0-101.0); MEAN PLATELET VOLUME 9.6 fl (7.4-10.4); MONOCYTE # 0.9 10^3/ul (0.3-0.9); MONOCYTES % 9.4 % (0.0-11.0); NEUTROPHIL # 7.7 10^3/ul (1.6-7.5); NEUTROPHILS % 84.8 % (39.0-77.0); PLATELET COUNT 243 10^3/UL (140-415); RED BLOOD COUNT 3.13 10^6/ul (4.20-5.40); RED CELL DISTRIBUTION WIDTH 14.2 % (11.5-14.5); WHITE BLOOD COUNT 9.1 10^3/ul (4.8-10.8)
[2017-06-16 19:36] LABS: PLATELET COUNT 244 10^3/UL (140-415); POSITIVE DIFF @See below
[2017-06-16 19:53] LABS: CREATININE 2.31 mg/dl (0.44-1.00); INR 1.55; POTASSIUM 5.1 mmol/L (3.5-5.1); PROTIME 18.7 Sec (12.2-14.2); PT RATIO 1.5
[2017-06-16 19:54] LABS: PARTIAL THROMBOPLASTIN TIME 34.6 Sec (25.0-35.0)
[2017-06-16] MEDS: INSULIN GLARGINE [LANtus] 3 ML PEN SC SCH (20:00)
[2017-06-16 20:04] LABS: D-DIMER 355.04 ng/ml (<460)
[2017-06-16 20:18] LABS: FIBRIN SPLIT PRODUCT <10 ug/ml (<10)
[2017-06-16] MEDS ORDERED: HALOPERIDOL 5 MG INJ IV PRN (20:30)
[2017-06-16 20:40] LABS: THROMBIN TIME 21.4 SEC (13.8-19.1)
[2017-06-16] MEDS: SERTRALINE 100 MG TAB PO SCH (21:47)
[2017-06-16] MEDS: ATORVASTATIN 10 MG TAB PO SCH (21:47)
[2017-06-16] MEDS: MONTELUKAST 10 MG TAB PO SCH (21:47)
[2017-06-16] MEDS: RANITIDINE 150 MG TAB PO SCH (21:48)
[2017-06-16 21:51] LABS: AADO2 Arterial 43.8 mmHg (7.0-24.0); Allen Test ACCEPTAB; Arterial COHb 0.3 % (0.0-3.0); Arterial Fraction of Oxyhgb 96.6 % (93.0-99.0); Arterial HCO3 20.8 mmol/L (22.0-26.0); Arterial MetHb 0.1 % (0.0-1.5); Arterial Total Hemglobin 10.9 g/dl (12.0-18.0); Blood Gas IEPAP 22/8; Blood Gas PS 14; MODE MASK - BIPAP
[2017-06-16] MEDS ORDERED: PROPOFOL 100 ML ONE (23:22)
[2017-06-17] VITALS (76 sets, daily range): BP systolic 67–184; BP diastolic 57–95; PULSE 66–115; RESP 12–20
[2017-06-17] MEDS: PROPOFOL 100 ML IV SCH ×3 (00:07→10:00)
[2017-06-17] MEDS: PIPER-TAZO 2.25 GM (PMX) 50 ML IVPB SCH ×5 (00:12→23:03)
[2017-06-17] MEDS ORDERED: MIDAZOLAM (DRIP) 50 mg/50 mL 50 ML IV ONE (00:22)
--- NOTE | 2017-06-17 00:31 | RADRPT ---
PROCEDURE: XR Chest. CLINICAL INDICATION: Shortness of breath. TECHNIQUE: AP Portable chest. COMPARISON: 11/18/2015 FINDINGS: The cardiomediastinal silhouette is normal. There is mild pulmonary vascular congestion. Opacities are seen in the left and right lung bases, likely pleural effusions and atelectasis. The osseous st ructures are unremarkable. An endotracheal tube tip is seen in the mid to distal trachea, 2.5 cm above the level of the audelia. A nasogastric tube tip is in the stomach. A left arm PICC line is seen with tip in the superior alona a cava. IMPRESSION: Mild pulmonary vascular congestion and basilar opacities likely compatible with pleural effusions an d atelectasis. RPTAT: HIKT .Dante Watkins MD, Date Time Electronically viewed and signed by .Dante Watkins MD, on 06/17/2017 00:31 .T/
[2017-06-17] MEDS: NORepinephrine 8MG/250 ML (PMX 250 ML IV SCH (00:34)
--- NOTE | 2017-06-17 00:41 | PN ---
DATE: 06/16/2017 SUBJECTIVE: The patient unable to give history. OBJECTIVE: VITAL SIGNS: Temperature 97.4 axillary, pulse 100, respirations 22, blood pressure 114/67, oxygen s aturation 100% on BiPAP. GENERAL: Well-developed, well-nourished female in mild distress secondary to BiPAP mask. NECK: Increased jugular venous pressure. LUNGS: Clear to auscultation bilaterally. HEART: Irregularly irregular, tachycardic. ABDOMEN: Soft, nontender. EXTREMITIES: No cyanosis, clubbing. There is trace edema of the lower extremities. NEUROLOGIC: The patient is lethargic but arousable. LABORATORY DATA: White blood cell count 9.1, hemoglobin of 9.5, hematocrit of 31.1, platelets 243. Lactic acid initially 3.9, repeat was 1.6. Troponin 0.197. CK-MB of 5.16. CK total of 67. Tropo emerson prior to that was 0.24. Creatinine was 1.84, BUN of 45, potassium 5.5, sodium 144. Arterial bl ood gas analysis initially this morning, there was 6.929 pH with a pCO2 of 103.9, oxygen saturation of 97.6 on nonrebreather mask. Latest arterial blood gas at 5 p.m. today shows a pH of 7.11, pCO2 o f 71, pO2 of 81.9, oxygen saturation 95%. That is on BiPAP mask with FIO2 of 30%. Renal ultrasound shows benign left renal cysts measuring 2.1 cm, Marie catheter in place, no hydro, no other abnorma lities noted. Chest x-ray after PICC line insertion shows mild pulmonary vascular congestion, small bilateral pleural effusions. No significant change from prior. ASSESSMENT AND PLAN: 1. Acute respiratory failure. The patient with evidence of hypercapnia with respiratory failure, l ikely a combination of sedation and chronic obstructive pulmonary disease exacerbation in conjunctio n with some mild congestive heart failure. The patient is doing better on BiPAP and we will continu e to monitor in the ICU with BiPAP and hopefully the patient does not require further intervention w ith respect to mechanical ventilation. The patient's family is aware of the patient's condition and the potential for deterioration and the need for further aggressive care. 2. Acute renal failure on chronic renal insufficiency. This is likely due to the patient's hypoten candace during the night and early today. The patient currently with decreased urine output after rece iving IV fluids boluses. We will have nephrology evaluate the patient in the morning for further as sistance and continue with current measures. 3. Coronary artery disease/hypertension/atrial fibrillation with rapid ventricular response/hypoten candace. The patient currently on Levophed and her pressure remains stable, but patient is dependent o n this. We will continue with current measures and monitoring in the ICU. 4. Diabetes. Remains stable. Continue with sliding scale. 5. Hypothyroidism. Continue with patient's medication. Dictated By: MORGAN SNOW MD SR/NTS Conf#: [id number] DID#: [id number]
[2017-06-17] MEDS: INSULIN ASPART [NOVOLOG] 3 ML PEN SC SCH ×6 (01:00→21:00)
[2017-06-17] MEDS: MIDAZOLAM (DRIP) 50 mg/50 mL 50 ML IV SCH ×2 (01:03→04:29)
[2017-06-17 01:19] LABS: AADO2 Arterial 191.5 mmHg (7.0-24.0); Allen Test ACCEPTAB; Arterial COHb 0.3 % (0.0-3.0); Arterial Fraction of Oxyhgb 98.7 % (93.0-99.0); Arterial MetHb 0.3 % (0.0-1.5); Arterial Total Hemglobin 10.2 g/dl (12.0-18.0); MODE VENT - AC
[2017-06-17] MEDS: ACCU-CHEK XX SCH (02:00)
[2017-06-17 05:14] LABS: HEMOGLOBIN 8.7 g/dl (12.0-16.0); LYMPHOCYTES # 0.8 10^3/ul (0.8-2.9); LYMPHOCYTES % 7.1 % (15.0-51.0); MEAN CORPUSCULAR HEMOGLOBIN 29.8 pg (29.0-33.0); MEAN CORPUSCULAR HGB CONC 31.1 g/dl (32.0-37.0); MEAN CORPUSCULAR VOLUME 95.9 fl (82.0-101.0); MEAN PLATELET VOLUME 10.4 fl (7.4-10.4); MONOCYTE # 1.2 10^3/ul (0.3-0.9); MONOCYTES % 10.9 % (0.0-11.0); NEUTROPHIL # 8.6 10^3/ul (1.6-7.5); NEUTROPHILS % 81.4 % (39.0-77.0); NUCLEATED RED BLOOD CELLS% 0.2 /100WBC (0.0-0.0); PLATELET COUNT 206 10^3/UL (140-415); RED BLOOD COUNT 2.92 10^6/ul (4.20-5.40); RED CELL DISTRIBUTION WIDTH 14.3 % (11.5-14.5); WHITE BLOOD COUNT 10.6 10^3/ul (4.8-10.8)
[2017-06-17 05:33] LABS: INR 1.56; PROTIME 18.8 Sec (12.2-14.2); PT RATIO 1.5
[2017-06-17 05:34] LABS: PARTIAL THROMBOPLASTIN TIME 29.8 Sec (25.0-35.0); THROMBIN TIME 21.9 SEC (13.8-19.1)
[2017-06-17 05:42] LABS: CALCIUM 8.3 mg/dl (8.4-10.2); CREATININE 2.66 mg/dl (0.44-1.00); POTASSIUM 5.2 mmol/L (3.5-5.1)
[2017-06-17] MEDS: DILTIAZEM 60 MG TAB GTB SCH ×3 (05:46→22:00)
[2017-06-17 06:06] LABS: AMYLASE 58 U/L (11-123)
[2017-06-17 07:44] LABS: AADO2 Arterial 78.4 mmHg (7.0-24.0); Allen Test ACCEPTAB; Arterial Base Excess -3.6 mmol/L (-3.0-3); Arterial COHb 0.3 % (0.0-3.0); Arterial Fraction of Oxyhgb 96.9 % (93.0-99.0); Arterial HCO3 19.9 mmol/L (22.0-26.0); Arterial MetHb 0.2 % (0.0-1.5); Arterial Total Hemglobin 10.1 g/dl (12.0-18.0); MODE VENT - AC
[2017-06-17] MEDS: LEVOTHYROXINE 100 MCG TAB PO SCH (08:35)
[2017-06-17] MEDS: ASPIRIN 325 MG TAB PO SCH (08:35)
[2017-06-17] MEDS: ENOXAPARIN 60 MG/0.6 ML SYG SC SCH (08:42)
[2017-06-17] MEDS: METOPROLOL 25 MG TAB PO SCH ×2 (08:51→21:37)
--- NOTE | 2017-06-17 08:54 | RADRPT ---
PROCEDURE: XR Chest. CLINICAL INDICATION: pna chf TECHNIQUE: Single portable view of the chest was obtained COMPARISON: CR CHEST 11/18/2015; CR CHEST 07/28/2015; CR CHEST 12/19/2014 FINDINGS: An endotracheal tube terminates approximately 1 cm above the audelia. A nasogastric tube extends belo w the left hemidiaphragm. A left upper extremity PICC line tip overlies the proximal superior vena c liya. The cardiomediastinal silhouette is enlarged. Thoracic aortic atherosclerosis is noted. Right g reater than left perihilar and lower lobe air space disease is present without significant interval change. Bilateral, left greater than right pleural effusions with atelectasis or consolidation . The re is no evidence of a pneumothorax. IMPRESSION: 1. Satisfactory position of support lines and tubes. 2. Unchanged right greater than left perihilar lower lobe air space disease. 3. Bilateral left greater than right pleural effusions with atelectasis or consolidation. 4. Stable cardiomegaly. RPTAT: HRSR Physician Sudarshan Date Time Electronically viewed and signed by Physician Sudarshan on 06/17/2017 08:53 RR/
[2017-06-17] MEDS: DEXTROSE 5%-0.9% NACL 1,000 ML IV SCH ×2 (09:00→18:38)
--- NOTE | 2017-06-17 09:11 | PN ---
DATE: 06/17/2017 SUBJECTIVE: Patient is sedated. OBJECTIVE: VITAL SIGNS: Afebrile, pulse of 94 to 109, irregular, respiratory rate 14 on vent, blood pressure 1 22/65, oxygen saturation 98%, FIO2 30% mechanical ventilation. LUNGS: Clear to auscultation bilaterally. HEART: Tachycardic, irregular. ABDOMEN: Soft, nontender. NEUROLOGIC: The patient is sedated. EXTREMITIES: No cyanosis, clubbing or edema. LABORATORY DATA: Sodium 134, potassium 5.2, chloride 101, bicarbonate 19, BUN of 57, creatinine 2.6 6, blood sugar of 52, calcium 8.3, magnesium 2.1. Hematocrit is 28.0, hemoglobin of 8.7, white bloo d cell count 10.6, platelets of 206. Arterial blood gas analysis: A pH of 7.435, pCO2 of 30.3, pO2 of 99.9, oxygen saturation 97.4%. Chest x-ray after intubation shows mild pulmonary vascular congestion and basilar opacities likely c ompatible with pleural effusions and atelectasis. ASSESSMENT AND PLAN: 1. Respiratory failure, hypercapnia. The patient is now on a ventilator but her hypercapnia is imp roved. The patient did not tolerate BiPAP. She was agitated and could not get her CO2 down well en ough. The patient is now on a vent and sedation. Will work with pulmonary to try to wean patient o ff on sedatives as well as on the ventilator and hopefully off the ventilator in the near future. 2. Acute congestive heart failure systolic/atrial fibrillation/coronary artery disease/hypertension . Patient no longer on pressor support and off the Levophed. The patient with mild heart failure b y x-ray. We will give Lasix IV push x1 and hopefully see some increase urine output with this. We will continue with monitoring intake and output. 3. Acute on chronic renal insufficiency. This is worse. The patient with likely acute tubular nec rosis after hypotension yesterday. The patient is producing some urine at this point. We will have nephrology evaluate the patient and assist with workup and treatment. 4. Diabetes. We will continue with medications and I will add D5 to provide some sugar and prevent hypoglycemia. Dictated By: MORGAN SNOW MD SR/NTS Conf#: [id number] DID#: [id number]
--- NOTE | 2017-06-17 09:40 | CONS ---
Date/Time of Note Date/Time of Note DATE: 06/17/17 TIME: 09:37 Consult Date/Type/Reason Admit Date/Time Jun 14, 2017 at 09:27 Initial Consult Date Type of Consultation: Pulmonary Ordering Provider: SARAH VINCENT Subjective Patient intubated overnight for airway protection and concern for respiratory failure. Weaned off vasopressors. This morning sedated appears comfortable at rest. Urine output remains negligible. Objective Vital Signs Date Time Temp Pulse Resp B/P Pulse Ox O2 Delivery O2 Flow Rate FiO2 06/17/17 08:00 107 06/17/17 07:50 14 97 30 06/17/17 06:00 122/65 Mechanical Ventilator 06/17/17 04:00 98.6 06/16/17 08:00 2.0 Intake and Output 06/16/17 06/16/17 06/17/17 15:00 23:00 07:00 Intake Total 293.333 ml 1476.249 ml 325.55 ml Output Total 10 ml 60 ml Balance 283.333 ml 1476.249 ml 265.55 ml Exam PHYSICAL EXAMINATION: GENERAL: Elderly-appearing intubated sedated on mechanical ventilation. VITAL SIGNS: NECK: Supple. No JVD or lymphadenopathy. CARDIAC: S1, S2, no added sounds or murmurs. CHEST: Diminished air entry both lung bases. ABDOMEN: Soft, nontender. No guarding or rebound. EXTREMITIES: No cyanosis, clubbing, 1+ edema. NEUROLOGIC: Generalized weakness. Results/Medications Result Diagram: 06/17/17 0400 06/17/17 0400 Results 24 hrs Laboratory Tests Test 06/16/17 10:30 06/16/17 11:00 06/16/17 11:06 06/16/17 14:00 Lactic Acid Level 3.9 *H Creatine Kinase 67 Creatine Kinase Index 7.7 Creatinine Kinase MB (Mass) 5.16 H Troponin I 0.197 *H Blood Gas Specimen Source Blood arterial Blood arterial Arterial Blood Date Drawn 06/16/2017 11:00:00 AM 06/16/2017 1:50:22 PM Arterial Blood pH (Temp corrected) 7.065 *L 7.103 *L Arterial Blood pCO2 (Temp correct) 75.1 H 76.4 H Arterial Blood pO2 (Temp corrected) 109.2 H 92.5 H Arterial Blood HCO3 21.0 L 23.3 Arterial Blood Base Excess -9.9 L -7.3 L Arterial Blood Oxygen Saturation 97.0 96.2 Carlton Test ACCEPTAB ACCEPTAB Arterial Blood Gas Puncture Site Right Radial Right Radial Arterial Blood Carboxyhemoglobin 0.1 0.2 Arterial Blood Methemoglobin 0.1 0.1 Blood Gas A-a O2 Differential 89.6 H 31.6 H Oxyhemoglobin Percent 96.8 95.9 Total Hemoglobin 11.3 L 11.8 L Blood Gas Temperature 37.0 37.0 Blood Gas Respiration Rate 20.0 20.0 Blood Gas Actual Respiration Rate 20 23 Blood Gas Modality MASK - BIPAP MASK - BIPAP FiO2 40.0 30.0 Blood Gas IPAP/EPAP Ratio 20/6 20/6 Blood Gas Critical Value Read Back Y SANTY RN Y SANTY RN Blood Gas Notified Whom KEO CROWLEY Blood Gas Notified Time 06/16/2017 11:13:00 AM 06/16/2017 2:04:23 PM Bedside Glucose 152 Test 06/16/17 16:44 06/16/17 17:00 06/16/17 18:24 06/16/17 19:25 Bedside Glucose 150 Blood Gas Specimen Source Blood arterial Arterial Blood Date Drawn 06/16/2017 5:00:41 PM Arterial Blood pH (Temp corrected) 7.110 *L Arterial Blood pCO2 (Temp correct) 71.2 H Arterial Blood pO2 (Temp corrected) 81.9 Arterial Blood HCO3 22.1 Arterial Blood Base Excess -8.1 L Arterial Blood Oxygen Saturation 95.1 Carlton Test ACCEPTAB Arterial Blood Gas Puncture Site Right Radial Arterial Blood Carboxyhemoglobin 0.4 Arterial Blood Methemoglobin 0 Blood Gas A-a O2 Differential 48.3 H Oxyhemoglobin Percent 94.7 Total Hemoglobin 11.4 L Blood Gas Temperature 37.0 Blood Gas Respiration Rate 22.0 Blood Gas Actual Respiration Rate 25 Blood Gas Modality MASK - BIPAP FiO2 30.0 Blood Gas IPAP/EPAP Ratio 22/6 Blood Gas Critical Value Read Back Blood Gas Notified Whom ALLEN Blood Gas Notified Time 06/16/2017 5:09:09 PM Lactic Acid Level 1.6 White Blood Count 9.1 Red Blood Count 3.13 L Hemoglobin 9.5 L Hematocrit 31.1 L Mean Corpuscular Volume 99.4 Mean Corpuscular Hemoglobin 30.4 Mean Corpuscular Hemoglobin Concent 30.5 L Red Cell Distribution Width 14.2 Platelet Count 244 Mean Platelet Volume 9.6 Neutrophils % 84.8 H Lymphocytes % 4.9 L Monocytes % 9.4 Eosinophils % 0.0 Basophils % 0.1 Nucleated Red Blood Cells % 0.0 Neutrophils # 7.7 H Lymphocytes # 0.4 L Monocytes # 0.9 Eosinophils # 0.0 Basophils # 0.0 Nucleated Red Blood Cells # 0.0 Prothrombin Time 18.7 H Prothrombin Time Ratio 1.5 INR International Normalized Ratio 1.55 Activated Partial Thromboplast Time 34.6 Thrombin Time 21.4 H Fibrinogen 293.0 Plasma Fibrin Degradation Products <10 D-Dimer 355.04 D-Dimer Comment Sodium Level 135 Potassium Level 5.1 Chloride Level 100 Carbon Dioxide Level 22 Anion Gap 18 H Blood Urea Nitrogen 48 H Creatinine 2.31 H Glucose Level 119 # Calcium Level 8.0 L Test 06/16/17 20:25 06/16/17 21:00 06/16/17 23:34 06/17/17 01:11 Bedside Glucose 129 84 Blood Gas Specimen Source Blood arterial Blood arterial Arterial Blood Date Drawn 06/16/2017 9:42:21 PM 06/17/2017 1:05:55 AM Arterial Blood pH (Temp corrected) 7.166 *L 7.444 Arterial Blood pCO2 (Temp correct) 58.8 H 26.8 L Arterial Blood pO2 (Temp corrected) 101.0 H 206.8 H Arterial Blood HCO3 20.8 L 18.0 L Arterial Blood Base Excess -8.0 L -5.0 L Arterial Blood Oxygen Saturation 97.0 99.3 Carlton Test ACCEPTAB ACCEPTAB Arterial Blood Gas Puncture Site Right Brachial Left Radial Arterial Blood Carboxyhemoglobin 0.3 0.3 Arterial Blood Methemoglobin 0.1 0.3 Blood Gas A-a O2 Differential 43.8 H 191.5 H Oxyhemoglobin Percent 96.6 98.7 Total Hemoglobin 10.9 L 10.2 L Blood Gas Temperature 37.0 37.0 Blood Gas Respiration Rate 22.0 20.0 Blood Gas Actual Respiration Rate 20 20 Blood Gas Modality MASK - BIPAP VENT - AC FiO2 30.0 60.0 Blood Gas Pressure Support 14 Blood Gas IPAP/EPAP Ratio 22/8 Blood Gas Critical Value Read Back VLADIMIR GONZALEZ Blood Gas Notified Whom CHRISTOPHER BARRERA Blood Gas Notified Time 06/16/2017 9:51:01 PM 06/17/2017 1:19:14 AM Blood Gas Tidal Volume 500.0 Blood Gas Low PEEP Setting 5.0 Blood Gas Inspiratory Pressure 38.0 Test 06/17/17 02:09 06/17/17 04:00 06/17/17 04:37 06/17/17 05:06 Bedside Glucose 89 65 L 115 White Blood Count 10.6 Red Blood Count 2.92 L Hemoglobin 8.7 L Hematocrit 28.0 L Mean Corpuscular Volume 95.9 Mean Corpuscular Hemoglobin 29.8 Mean Corpuscular Hemoglobin Concent 31.1 L Red Cell Distribution Width 14.3 Platelet Count 206 Mean Platelet Volume 10.4 Neutrophils % 81.4 H Lymphocytes % 7.1 L Monocytes % 10.9 Eosinophils % 0.0 Basophils % 0.0 Nucleated Red Blood Cells % 0.2 H Neutrophils # 8.6 H Lymphocytes # 0.8 Monocytes # 1.2 H Eosinophils # 0.0 Basophils # 0.0 Nucleated Red Blood Cells # 0.0 Prothrombin Time 18.8 H Prothrombin Time Ratio 1.5 INR International Normalized Ratio 1.56 Activated Partial Thromboplast Time 29.8 Thrombin Time 21.9 H Sodium Level 134 L Potassium Level 5.2 H Chloride Level 101 Carbon Dioxide Level 19 L Anion Gap 19 H Blood Urea Nitrogen 57 H Creatinine 2.66 H Glucose Level 52 #L Lactic Acid Level 1.1 Calcium Level 8.3 L Magnesium Level 2.1 Amylase Level 58 Lipase 201 Random Cortisol 39.6 Test 06/17/17 07:00 06/17/17 08:45 Blood Gas Specimen Source Blood arterial Arterial Blood Date Drawn 06/17/2017 7:10:56 AM Arterial Blood pH (Temp corrected) 7.435 Arterial Blood pCO2 (Temp correct) 30.3 L Arterial Blood pO2 (Temp corrected) 99.9 H Arterial Blood HCO3 19.9 L Arterial Blood Base Excess -3.6 L Arterial Blood Oxygen Saturation 97.4 Carlton Test ACCEPTAB Arterial Blood Gas Puncture Site Right Radial Arterial Blood Carboxyhemoglobin 0.3 Arterial Blood Methemoglobin 0.2 Blood Gas A-a O2 Differential 78.4 H Oxyhemoglobin Percent 96.9 Total Hemoglobin 10.1 L Blood Gas Temperature 37.0 Blood Gas Respiration Rate 14.0 Blood Gas Actual Respiration Rate 14 Blood Gas Modality VENT - AC FiO2 30.0 Blood Gas Tidal Volume 500.0 Blood Gas Low PEEP Setting 5.0 Blood Gas Notified Whom GHASSAND Blood Gas Notified Time 06/17/2017 7:44:39 AM Bedside Glucose 85 Medications Current Medications Ondansetron HCl (Zofran Inj) 4 mg Q6H PRN IV NAUSEA AND/OR VOMITING Last administered on 06/16/17 00:28; Admin Dose 4 MG; Start 06/13/17 at 15:30 Acetaminophen (Tylenol Tab) 650 mg Q6H PRN PO PAIN LEVEL 1-3 OR FEVER; Start 06/13/17 at 15:30 Docusate Sodium (Colace) 100 mg Q12H PRN PO CONSTIPATION; Start 06/13/17 at 15 :30 Magnesium Hydroxide (Milk Of Mag) 30 ml DAILY PRN PO CONSTIPATION; Start 06/13 at 15:30 Hydralazine HCl (Apresoline) 10 mg Q6H PRN IV ELEVATED BLOOD PRESSURE Last administered on 06/14/17 00:02; Admin Dose 10 MG; Start 06/13/17 at 15:30 Nitroglycerin (Nitroglycerin (Sl Tab) 0.4 Mg) 1 tab Q5M PRN SL ANGINA; Start 06/13/17 at 15:30 Aspirin (Aspirin) 325 mg DAILY PO Last administered on 06/17/17 08:35; Admin Dose 325 MG; Start 06/14/17 at 09:00 Atorvastatin Calcium (Lipitor) 10 mg HS PO Last administered on 06/16/17 21: 47; Admin Dose 10 MG; Start 06/13/17 at 21:00 Hydralazine HCl (Apresoline) 100 mg Q8 PO Last administered on 06/15/17 21:28 ; Admin Dose 100 MG; Start 06/13/17 at 22:00 Levothyroxine Sodium (Synthroid) 100 mcg DAILY PO Last administered on 08:35; Admin Dose 100 MCG; Start 06/14/17 at 09:00 Montelukast Sodium (Singulair) 10 mg QHS PO Last administered on 06/16/17 21: 47; Admin Dose 10 MG; Start 06/13/17 at 21:00 Ranitidine HCl (Zantac) 150 mg HS PO Last administered on 06/16/17 21:48; Admin Dose 150 MG; Start 06/13/17 at 21:00 Clonidine (Catapres) 0.1 mg Q6H PRN PO SBP > 170 Last administered on 03:38; Admin Dose 0.1 MG; Start 06/13/17 at 18:30 Metoprolol Tartrate (Lopressor) 25 mg BID PO Last administered on 06/17/17 08 :51; Admin Dose 25 MG; Start 06/14/17 at 05:30 Insulin Glargine (Lantus) 10 unit DAILY@20 SC ; Start 06/14/17 at 20:00 Diagnostic Test (Pha) (Accu-Chek) 1 ea 02 XX ; Start 06/15/17 at 02:00 Miscellaneous Information 1 ea NOTE XX ; Start 06/14/17 at 06:00 Glucose (Glutose) 15 gm Q15M PRN PO DECREASED GLUCOSE; Start 06/14/17 at 06:00 Glucose (Glutose) 22.5 gm Q15M PRN PO DECREASED GLUCOSE; Start 06/14/17 at 06: 00 Dextrose (D50w Syringe) 25 ml Q15M PRN IV DECREASED GLUCOSE Last administered on 06/17/17 04:41; Admin Dose 25 ML; Start 06/14/17 at 06:00 Dextrose (D50w Syringe) 50 ml Q15M PRN IV DECREASED GLUCOSE; Start 06/14/17 at 06:00 Glucagon (Glucagen) 1 mg Q15M PRN IM DECREASED GLUCOSE; Start 06/14/17 at 06: 00 Glucose 15 gm 15 gm Q15M PRN BUCCAL DECREASED GLUCOSE; Start 06/14/17 at 06:00 Diltiazem HCl (Cardizem-D5W 125 Mg/125 ml Drip) 125 ml @ 0 mls/hr TITRATE IV Last administered on 06/14/17 21:55; Admin Dose 5 MLS/HR; Start 06/14/17 at 15:00 Sertraline HCl 50 mg 50 mg HS PO Last administered on 06/16/17 21:47; Admin Dose 50 MG; Start 06/15/17 at 21:00 Piperacillin Sod/ Tazobactam Sod 50 ml @ 100 mls/hr Q6 IVPB Last administered on 06/17/17 05:47; Admin Dose 100 MLS/HR; Start 06/16/17 at 12:00 Norepinephrine 250 ml @ 1.875 mls/ hr TITRATE IV Last administered on 00:34; Admin Dose 18.75 MLS/HR; Start 06/16/17 at 10:30 Dopamine HCl/ Dextrose 250 ml @ 5.325 mls/ hr TITRATE IV ; Start 06/16/17 at 11:00 Diltiazem HCl (Cardizem) 30 mg Q8 GTB ; Start 06/16/17 at 14:00 Enoxaparin Sodium (Lovenox) 60 mg DAILY SC Last administered on 06/17/17 08: 42; Admin Dose 60 MG; Start 06/17/17 at 09:00 IV Flush (NS 10 ml) 10 ml PRN PRN IV IV PROTOCOL; Start 06/16/17 at 14:00 Haloperidol (Haldol) 1 mg Q12 PRN IV agitation Last administered on 06/16/17 21:56; Admin Dose 1 MG; Start 06/16/17 at 20:30 Insulin Aspart NOVOLOG *MILD* ALGORI... Q4 SC ; Start 06/17/17 at 01:00 Propofol 100 ml @ 2.13 mls/hr Q12H IV Last administered on 06/17/17 02:08; Admin Dose 21.3 MLS/HR; Start 06/17/17 at 00:00 Midazolam HCl 50 ml @ 1 mls/hr TITRATE IV Last administered on 06/17/17 04:29 ; Admin Dose 10 MLS/HR; Start 06/17/17 at 00:30 Vancomycin HCl 100 ml @ 100 mls/hr Q48H IVPB ; Start 06/19/17 at 08:00 Dextrose/Sodium Chloride (D5-NS) 1,000 ml @ 100 mls/hr Q10H IV ; Start at 09:00 Assessment/Plan Chief Complaint/Hosp Course IMPRESSION: 1. Acute hypercapnic respiratory failure, now intubated on mechanical ventilation. Chest x-ray demonstrates a moderate to large right pleural effusion. 2. History of hypertension. 3. Atrial fibrillation with rapid ventricular rate. 4. Diabetes mellitus. 5. Status post shock. 6. Acute renal failure. Likely ATN injury. The patient will require 1. Continued mechanical ventilation 2. Vasopressors as needed to keep MAP > 65 3. Mild sedation during mechanical ventilation 4. Deep venous thrombosis and gastrointestinal prophylaxis. 5. Right lung thoracentesis with pleural fluid studies 6. Start tube feeding. 7. Renal recommendations agree with fluid challenge. Problems: YAZMIN VARGAS MD, [facility] Jun 17, 2017 09:40
--- NOTE | 2017-06-17 10:50 | RADRPT ---
PROCEDURE: CT Brain without contrast. CLINICAL INDICATION: Encephalopathy. TECHNIQUE: A CT of the brain was performed on a multislice CT scanner utilizing axial sections fro m the skull base through the vertex without contrast. Coronal and sagittal reformatted images were o btained from the axial source images. Images were reviewed on a high-resolution PACS workstation. E xam CTDI = 44.11 mGy and the DLP equals 630.2 mGy-cm. One or the following dose reduction techniques were used: -Automated exposure control. -Adjustment of the mA and/or KV according to patient's size. -Use of iterative reconstruction technique. DICOM images are available. COMPARISON: CT of the brain from 06/13/2017. FINDINGS: There is mild prominence of the lateral ventricles and cerebral sulci, consistent with diffuse cereb ral atrophy. There is no intracranial hemorrhage, midline shift, or mass effect. No abnormal extra-a xial fluid collections are identified. There is hypoattenuation of the periventricular white matter. The ken-white differentiation is well preserved. The basal cisterns are patent. The posterior kiet a is unremarkable. Vascular calcifications are noted within the intracranial portions of the vertebr al and internal carotid arteries. The visualized portions of the orbits are unremarkable. There is mild mucosal thickening in the ethm oid air cells. No calvarial fracture or abnormality are identified. The soft tissues are unremarkabl e. IMPRESSION: 1. No acute intracranial abnormality. 2. Age related senescent changes with microvascular ischemic changes. 3. Intracranial atherosclerosis. 4. Mild mucosal thickening in the ethmoid air cells suggesting inflammatory change. RPTAT:AACC Physician Kaycee Date Time Electronically viewed and signed by Physician Kaycee on 06/17/2017 10:50 JH/
--- NOTE | 2017-06-17 12:20 | CONS ---
Date/Time of Note Date/Time of Note DATE: 06/17/17 TIME: 12:17 Assessment/Plan Assessment/Plan Additional Assessment/Plan 1. Atrial fibrillation, better rate controlled now. Will monitor for now. 2. Resp failure - now intubated, Rx with sedation - decreased Fio2 now. 3. Coronary artery disease. The patient's has history of coronary artery disease. Troponins are negative now, no chest pain noted. NO CP noted, 3. HyPOtension - off levo gtt, con't IVF now. 4. Chronic obstructive pulmonary disease, with wheezing. Continue to optimize medical therapy as primary team follows. 5. ARF - cr high - renal team follows. Consultation Date/Type/Reason Admit Date/Time Jun 14, 2017 at 09:27 Type of Consultation: Pulmonary Referring Provider: SARAH VINCENT 24 HR Interval Summary Free Text/Dictation NOw in ICU - con't resp Rx - will keep euvolemic. ROS: No fever, no chills, no nausea, no vomiting, no diarrhea/constipation No recent weight changes No chest pain, no PND, no orthopnea + SOB No dizziness, blurred vision No thirst, no heat or cold intolerance Exam/Review of Systems Vital Signs Vitals Vital Signs Date Time Temp Pulse Resp B/P Pulse Ox O2 Delivery O2 Flow Rate FiO2 06/17/17 11:00 108 14 98 30 06/17/17 10:15 118/65 06/17/17 10:00 Mechanical Ventilator 06/17/17 04:00 98.6 06/16/17 08:00 2.0 Intake and Output 06/16/17 06/16/17 06/17/17 15:00 23:00 07:00 Intake Total 293.333 ml 1476.249 ml 325.55 ml Output Total 10 ml 100 ml Balance 283.333 ml 1476.249 ml 225.55 ml Exam General: WN/WD/NAD, AOx 0 sedated HEENT: Unicetric/atraumatic/EOMI (does not follow commands) NECK: JVD elevated, no thyromegaly Lymph: no lymphadenopathy HEART: ir irregular with no S3, II/ systolic murmur at apex LUNGS: Coarse sounds ABD: soft, NT, ND, +BS : Intact Neuro: non focal SKIN: chronic changes EXT: trace edema Results Result Diagram: 11/14/17 0400 11/14/17 0400 Results 24 hrs Laboratory Tests Test 06/16/17 14:00 06/16/17 16:44 06/16/17 17:00 06/16/17 18:24 Blood Gas Specimen Source Blood arterial Blood arterial Arterial Blood Date Drawn 06/16/2017 1:50:22 PM 06/16/2017 5:00:41 PM Arterial Blood pH (Temp corrected) 7.103 *L 7.110 *L Arterial Blood pCO2 (Temp correct) 76.4 H 71.2 H Arterial Blood pO2 (Temp corrected) 92.5 H 81.9 Arterial Blood HCO3 23.3 22.1 Arterial Blood Base Excess -7.3 L -8.1 L Arterial Blood Oxygen Saturation 96.2 95.1 Carlton Test ACCEPTAB ACCEPTAB Arterial Blood Gas Puncture Site Right Radial Right Radial Arterial Blood Carboxyhemoglobin 0.2 0.4 Arterial Blood Methemoglobin 0.1 0 Blood Gas A-a O2 Differential 31.6 H 48.3 H Oxyhemoglobin Percent 95.9 94.7 Total Hemoglobin 11.8 L 11.4 L Blood Gas Temperature 37.0 37.0 Blood Gas Respiration Rate 20.0 22.0 Blood Gas Actual Respiration Rate 23 25 Blood Gas Modality MASK - BIPAP MASK - BIPAP FiO2 30.0 30.0 Blood Gas IPAP/EPAP Ratio 20/6 22/6 Blood Gas Critical Value Read Back Y SANTY LOPEZ Blood Gas Notified Whom KEO VILLA Blood Gas Notified Time 06/16/2017 2:04:23 PM 06/16/2017 5:09:09 PM Bedside Glucose 150 Lactic Acid Level 1.6 Test 06/16/17 19:25 06/16/17 20:25 06/16/17 21:00 06/16/17 23:34 White Blood Count 9.1 Red Blood Count 3.13 L Hemoglobin 9.5 L Hematocrit 31.1 L Mean Corpuscular Volume 99.4 Mean Corpuscular Hemoglobin 30.4 Mean Corpuscular Hemoglobin Concent 30.5 L Red Cell Distribution Width 14.2 Platelet Count 244 Mean Platelet Volume 9.6 Neutrophils % 84.8 H Lymphocytes % 4.9 L Monocytes % 9.4 Eosinophils % 0.0 Basophils % 0.1 Nucleated Red Blood Cells % 0.0 Neutrophils # 7.7 H Lymphocytes # 0.4 L Monocytes # 0.9 Eosinophils # 0.0 Basophils # 0.0 Nucleated Red Blood Cells # 0.0 Prothrombin Time 18.7 H Prothrombin Time Ratio 1.5 INR International Normalized Ratio 1.55 Activated Partial Thromboplast Time 34.6 Thrombin Time 21.4 H Fibrinogen 293.0 Plasma Fibrin Degradation Products <10 D-Dimer 355.04 D-Dimer Comment Sodium Level 135 Potassium Level 5.1 Chloride Level 100 Carbon Dioxide Level 22 Anion Gap 18 H Blood Urea Nitrogen 48 H Creatinine 2.31 H Glucose Level 119 # Calcium Level 8.0 L Bedside Glucose 129 Blood Gas Specimen Source Blood arterial Blood arterial Arterial Blood Date Drawn 06/16/2017 9:42:21 PM 06/17/2017 1:05:55 AM Arterial Blood pH (Temp corrected) 7.166 *L 7.444 Arterial Blood pCO2 (Temp correct) 58.8 H 26.8 L Arterial Blood pO2 (Temp corrected) 101.0 H 206.8 H Arterial Blood HCO3 20.8 L 18.0 L Arterial Blood Base Excess -8.0 L -5.0 L Arterial Blood Oxygen Saturation 97.0 99.3 Carlton Test ACCEPTAB ACCEPTAB Arterial Blood Gas Puncture Site Right Brachial Left Radial Arterial Blood Carboxyhemoglobin 0.3 0.3 Arterial Blood Methemoglobin 0.1 0.3 Blood Gas A-a O2 Differential 43.8 H 191.5 H Oxyhemoglobin Percent 96.6 98.7 Total Hemoglobin 10.9 L 10.2 L Blood Gas Temperature 37.0 37.0 Blood Gas Respiration Rate 22.0 20.0 Blood Gas Actual Respiration Rate 20 20 Blood Gas Modality MASK - BIPAP VENT - AC FiO2 30.0 60.0 Blood Gas Pressure Support 14 Blood Gas IPAP/EPAP Ratio 22/8 Blood Gas Critical Value Read Back VLADIMIR RN Blood Gas Notified Whom CHRISTOPHER BARRERA Blood Gas Notified Time 06/16/2017 9:51:01 PM 06/17/2017 1:19:14 AM Blood Gas Tidal Volume 500.0 Blood Gas Low PEEP Setting 5.0 Blood Gas Inspiratory Pressure 38.0 Test 06/17/17 01:11 06/17/17 02:09 06/17/17 04:00 06/17/17 04:37 Bedside Glucose 84 89 65 L White Blood Count 10.6 Red Blood Count 2.92 L Hemoglobin 8.7 L Hematocrit 28.0 L Mean Corpuscular Volume 95.9 Mean Corpuscular Hemoglobin 29.8 Mean Corpuscular Hemoglobin Concent 31.1 L Red Cell Distribution Width 14.3 Platelet Count 206 Mean Platelet Volume 10.4 Neutrophils % 81.4 H Lymphocytes % 7.1 L Monocytes % 10.9 Eosinophils % 0.0 Basophils % 0.0 Nucleated Red Blood Cells % 0.2 H Neutrophils # 8.6 H Lymphocytes # 0.8 Monocytes # 1.2 H Eosinophils # 0.0 Basophils # 0.0 Nucleated Red Blood Cells # 0.0 Prothrombin Time 18.8 H Prothrombin Time Ratio 1.5 INR International Normalized Ratio 1.56 Activated Partial Thromboplast Time 29.8 Thrombin Time 21.9 H Sodium Level 134 L Potassium Level 5.2 H Chloride Level 101 Carbon Dioxide Level 19 L Anion Gap 19 H Blood Urea Nitrogen 57 H Creatinine 2.66 H Glucose Level 52 #L Lactic Acid Level 1.1 Calcium Level 8.3 L Magnesium Level 2.1 Amylase Level 58 Lipase 201 Random Cortisol 39.6 Test 06/17/17 05:06 06/17/17 07:00 06/17/17 08:45 Bedside Glucose 115 85 Blood Gas Specimen Source Blood arterial Arterial Blood Date Drawn 06/17/2017 7:10:56 AM Arterial Blood pH (Temp corrected) 7.435 Arterial Blood pCO2 (Temp correct) 30.3 L Arterial Blood pO2 (Temp corrected) 99.9 H Arterial Blood HCO3 19.9 L Arterial Blood Base Excess -3.6 L Arterial Blood Oxygen Saturation 97.4 Carlton Test ACCEPTAB Arterial Blood Gas Puncture Site Right Radial Arterial Blood Carboxyhemoglobin 0.3 Arterial Blood Methemoglobin 0.2 Blood Gas A-a O2 Differential 78.4 H Oxyhemoglobin Percent 96.9 Total Hemoglobin 10.1 L Blood Gas Temperature 37.0 Blood Gas Respiration Rate 14.0 Blood Gas Actual Respiration Rate 14 Blood Gas Modality VENT - AC FiO2 30.0 Blood Gas Tidal Volume 500.0 Blood Gas Low PEEP Setting 5.0 Blood Gas Notified Whom JLD Blood Gas Notified Time 06/17/2017 7:44:39 AM Medications Medications Current Medications Ondansetron HCl (Zofran Inj) 4 mg Q6H PRN IV NAUSEA AND/OR VOMITING Last administered on 06/16/17t 00:28; Admin Dose 4 MG; Start 06/13/17 at 15:30 Acetaminophen (Tylenol Tab) 650 mg Q6H PRN PO PAIN LEVEL 1-3 OR FEVER; Start 06/13/17 at 15:30 Docusate Sodium (Colace) 100 mg Q12H PRN PO CONSTIPATION; Start 06/13/17 at 15 :30 Magnesium Hydroxide (Milk Of Mag) 30 ml DAILY PRN PO CONSTIPATION; Start 06/13 at 15:30 Hydralazine HCl (Apresoline) 10 mg Q6H PRN IV ELEVATED BLOOD PRESSURE Last administered on 06/14/17 00:02; Admin Dose 10 MG; Start 06/13/17 at 15:30 Nitroglycerin (Nitroglycerin (Sl Tab) 0.4 Mg) 1 tab Q5M PRN SL ANGINA; Start 06/13/17 at 15:30 Aspirin (Aspirin) 325 mg DAILY PO Last administered on 06/17/17 08:35; Admin Dose 325 MG; Start 06/14/17 at 09:00 Atorvastatin Calcium (Lipitor) 10 mg HS PO Last administered on 06/16/17 21: 47; Admin Dose 10 MG; Start 06/13/17 at 21:00 Hydralazine HCl (Apresoline) 100 mg Q8 PO Last administered on 06/15/17 21:28 ; Admin Dose 100 MG; Start 06/13/17 at 22:00 Levothyroxine Sodium (Synthroid) 100 mcg DAILY PO Last administered on 08:35; Admin Dose 100 MCG; Start 06/14/17 at 09:00 Montelukast Sodium (Singulair) 10 mg QHS PO Last administered on 06/16/17 21: 47; Admin Dose 10 MG; Start 06/13/17 at 21:00 Ranitidine HCl (Zantac) 150 mg HS PO Last administered on 06/16/17 21:48; Admin Dose 150 MG; Start 06/13/17 at 21:00 Clonidine (Catapres) 0.1 mg Q6H PRN PO SBP > 170 Last administered on 03:38; Admin Dose 0.1 MG; Start 06/13/17 at 18:30 Metoprolol Tartrate (Lopressor) 25 mg BID PO Last administered on 06/17/17 08 :51; Admin Dose 25 MG; Start 06/14/17 at 05:30 Insulin Glargine (Lantus) 10 unit DAILY@20 SC ; Start 06/14/17 at 20:00 Diagnostic Test (Pha) (Accu-Chek) 1 ea 02 XX ; Start 06/15/17 at 02:00 Miscellaneous Information 1 ea NOTE XX ; Start 06/14/17 at 06:00 Glucose (Glutose) 15 gm Q15M PRN PO DECREASED GLUCOSE; Start 06/14/17 at 06:00 Glucose (Glutose) 22.5 gm Q15M PRN PO DECREASED GLUCOSE; Start 06/14/17 at 06: 00 Dextrose (D50w Syringe) 25 ml Q15M PRN IV DECREASED GLUCOSE Last administered on 06/17/17 04:41; Admin Dose 25 ML; Start 06/14/17 at 06:00 Dextrose (D50w Syringe) 50 ml Q15M PRN IV DECREASED GLUCOSE; Start 06/14/17 at 06:00 Glucagon (Glucagen) 1 mg Q15M PRN IM DECREASED GLUCOSE; Start 06/14/17 at 06: 00 Glucose 15 gm 15 gm Q15M PRN BUCCAL DECREASED GLUCOSE; Start 06/14/17 at 06:00 Diltiazem HCl (Cardizem-D5W 125 Mg/125 ml Drip) 125 ml @ 0 mls/hr TITRATE IV Last administered on 06/14/17 21:55; Admin Dose 5 MLS/HR; Start 06/14/17 at 15:00 Sertraline HCl 50 mg 50 mg HS PO Last administered on 06/16/17 21:47; Admin Dose 50 MG; Start 06/15/17 at 21:00 Piperacillin Sod/ Tazobactam Sod 50 ml @ 100 mls/hr Q6 IVPB Last administered on 06/17/17 05:47; Admin Dose 100 MLS/HR; Start 06/16/17 at 12:00 Norepinephrine 250 ml @ 1.875 mls/ hr TITRATE IV Last administered on 00:34; Admin Dose 18.75 MLS/HR; Start 06/16/17 at 10:30 Dopamine HCl/ Dextrose 250 ml @ 5.325 mls/ hr TITRATE IV ; Start 06/16/17 at 11:00 Diltiazem HCl (Cardizem) 30 mg Q8 GTB ; Start 06/16/17 at 14:00 Enoxaparin Sodium (Lovenox) 60 mg DAILY SC Last administered on 06/17/17 08: 42; Admin Dose 60 MG; Start 06/17/17 at 09:00 IV Flush (NS 10 ml) 10 ml PRN PRN IV IV PROTOCOL; Start 06/16/17 at 14:00 Haloperidol (Haldol) 1 mg Q12 PRN IV agitation Last administered on 06/16/17 21:56; Admin Dose 1 MG; Start 06/16/17 at 20:30 Insulin Aspart NOVOLOG *MILD* ALGORI... Q4 SC ; Start 06/17/17 at 01:00 Propofol 100 ml @ 2.13 mls/hr Q12H IV Last administered on 06/17/17 02:08; Admin Dose 21.3 MLS/HR; Start 06/17/17 at 00:00 Midazolam HCl 50 ml @ 1 mls/hr TITRATE IV Last administered on 06/17/17 04:29 ; Admin Dose 10 MLS/HR; Start 06/17/17 at 00:30 Vancomycin HCl 100 ml @ 100 mls/hr Q48H IVPB ; Start 06/19/17 at 08:00 Dextrose/Sodium Chloride (D5-NS) 1,000 ml @ 100 mls/hr Q10H IV ; Start at 09:00 Miscellaneous Information (*Rx Drug Level Order Reminder*) VANCOMYCIN RANDOM ON 06/04... ONCE ONCE XX ; Start 06/18/17 at 05:00; Stop 06/18/17 at 05:01 LILIAN ABEBE MD Jun 17, 2017 12:20
[2017-06-17 12:56] LABS: ADD UMIC YES; UR ASCORBIC ACID NEGATIVE (NEGATIVE); UR BACTERIA FEW /HPF (NONE SEEN); UR BILIRUBIN (Dip) NEGATIVE (NEGATIVE); UR BLOOD (Dip) 2+ mg/dL (NEGATIVE); UR CLARITY CLOUDY (CLEAR); UR COLOR YELLOW (YELLOW); UR GLUCOSE (Dip) NEGATIVE (NEGATIVE); UR KETONES (Dip) TRACE mg/dL (NEGATIVE); UR LEUKOCYTE ESTERASE (Dip) TRACE Leu/ul (NEGATIVE); UR NITRITE (Dip) NEGATIVE (NEGATIVE); UR RBC 131 /HPF (0-5); UR SPECIFIC GRAVITY (Dip) 1.017 (1.003-1.030); UR TOTAL PROTEIN (Dip) 2+ mg/dl (NEGATIVE); UR UROBILINOGEN (Dip) NEGATIVE (NEGATIVE)
--- NOTE | 2017-06-17 14:15 | CONS ---
DATE OF ADMISSION: 06/14/2017 DATE OF CONSULTATION: TYPE OF CONSULTATION: Renal. Thank you, Dr. Storey, for asking me to participate in medical management of this patient. REASON FOR CONSULTATION: Renal failure. HISTORY OF PRESENT ILLNESS: This 82-year-old female was admitted through the emergency room on 06/04. The patient presented to the emergency room at that time with several days of elevated bloo d pressure. The patient's family gave the ER doctor her history. They told the ER doctor that her blood pressure was in the 170 to 180 systolic range. She also had some chest pressure that was ulrich sient, nonradiating. The patient also described some increased anxiety and depression over a 2 to 3 month time frame. The patient was admitted with a diagnosis of atrial fibrillation, chest pain, hy pertensive emergency and depression. The patient on admission had a serum creatinine of 1.23. The serum creatinine remained stable over the next 2 days until yesterday when it arslan to 1.84 and then today at 2.66. Overnight, the patient developed some respiratory insufficiency. She was started on BiPAP; however, she was eventually intubated and placed on a ventilator. That was done sometime or early this morning. The patient is now sedated on a ventilator. Her family is in att endance with her. I spoke to the family and they tell me that she does not have a history of prior kidney disease. She does have a history of diabetes. The patient's blood pressure last evening did drop down as low as 67/58 at 1:00 a.m. She also had some low blood pressures after admission on , as low as 75/38 which was yesterday morning. PAST MEDICAL HISTORY: Other past medical history is remarkable for hypertension, atrial fibrillatio n and for several years after having a heart attack, anxiety, history of asthma, hypothyroidism and type 2 diabetes mellitus. MEDICATIONS: The patient was on the following medications: 1. Vancomycin. 2. Lovenox. 3. Insulin. 4. Midazolam. 5. Propofol. 6. Haldol. 7. Diltiazem. 8. Norepinephrine, which was tapered off. 9. Sertraline. 10. Aspirin. 11. Levothyroxine. 12. Hydralazine. 13. Metoprolol. 14. Singulair 10 mg a day. 15. Docusate sodium. 16. Magnesium hydroxide. PREADMISSION MEDICATIONS: Included: 1. Metformin. 2. Levothyroxine. 3. Ranitidine 4. Omeprazole. 5. Singulair. 6. Aspirin. 7. Losartan. 8. Hydralazine. 9. Atorvastatin. PHYSICAL EXAMINATION: GENERAL: At this time reveals an elderly female who is intubated and sedated on a ventilator. PILO L SIGNS: Her heart rate is 90 and irregularly irregular. Blood pressure 113/68 off pressors, O2 sa t of 98% on a ventilator. HEENT: Head normocephalic. Nose is normal. Mouth: She does have an ET-tube in place. NECK: Supple. LUNGS: Clear to auscultation. HEART: Irregularly irregular rhythm. No murmurs, gallops or rubs. ABDOMEN: Soft, nontender, no masses or megaly. EXTREMITIES: No peripheral edema. LABORATORY DATA: Done today, arterial blood gas pH of 7.435, pCO2 of 30, which is down from yesterd ay evening which was as high as 76.4, pO2 today of 99.9 on mechanical ventilation. Chemistry panel today, sodium 134, potassium 5.2, chloride 101, BUN of 57, creatinine of 2.66, glucose of 52, calciu m of 8.3, magnesium of 2.1, hemoglobin of 8.7, hematocrit of 28, white count of 10,600, platelets 20 6,000. Urinalysis shows trace leukocyte esterase, 2+ hemoglobin, 2+ protein. IMPRESSION: 1. Acute renal failure. This patient has had a decrease in renal function over the last several da ys. At the same time, she became hypercapnic and developed respiratory insufficiency and required i ntubation and is now on a ventilator. Her blood pressures were low at several times over the last 2 days. I suspect that she has had a decreased perfusion to her kidneys. Possibly some acute tubula r necrosis. She is responding to IV fluids and she has now been tapered off of pressors. 2. Respiratory failure. 3. Chronic atrial fibrillation. 4. History of hypertension. 5. Anxiety, depression. 6. Anemia. PLAN 1. I would recommend that the patient get some maintenance IV fluids to maintain her blood pressure and to increase renal perfusion. 2. Electrolytes, urinalysis, urine for eosinophils have been ordered. 3. I would hold diuretics at this time unless she develops pulmonary vascular congestion and/or dec reased oxygenation. 4. Renal ultrasound has been ordered. 5. I will continue to follow the patient along with you. Dictated By: NEVILLE GARDUNO MD ND/NTS Conf#: [id number] DID#: [id number] CC: SARAH VINCENT MD;*EndCC*
[2017-06-17] MEDS ORDERED: LIDOCAINE 1% (MPF) 5 ML VIAL ONE (16:37)
--- NOTE | 2017-06-17 16:41 | RADRPT ---
PROCEDURE: US guided right thoracentesis. CLINICAL INDICATION: Shortness of breath. Right pleural effusion. TECHNIQUE: Prior to the procedure, informed consent was obtained. The risks, benefits, and alternatives were e xplained to the patient or the patient's family, including but not limited to bleeding, infection, p ain, visceral or vascular damage, shock, pneumothorax, chest tube placement, air embolism, and . The patient or the patient's family understood the risks and the alternatives and wished to proce ed with the study. Informed written consent was obtained. A procedural pause was performed. The patient's name, date of , and procedure to be performed were verified. Ultrasound of the right hemithorax was performed in the axial and sagittal planes. A right pleural e ffusion is noted. Utilizing ultrasound guidance, optimal location for entry to the pleural cavity wa s ascertained. The overlying skin was prepped and draped in the usual sterile fashion. Approximate ly 10 ml of 1% Xylocaine was injected locally for pain control. Using ultrasound guidance, a 5-Fren Yueh catheter was introduced into the right pleural space without difficulty. Fluid was aspirated . COMPARISON: None. FINDINGS: Initial ultrasound demonstrates fluid in the right pleural space. Approximately 0.780liters of sero sanguineous was aspirated and sent to the laboratory. IMPRESSION: 1. Satisfactory ultrasound-guided right thoracentesis. RPTAT: QQ .Javed Velasquez MD, Date Time Electronically viewed and signed by .Javed Velasquez MD, on 06/17/2017 16:41 .R/
--- NOTE | 2017-06-17 17:01 | RADRPT ---
PROCEDURE: XR Chest. CLINICAL INDICATION: Status post right thoracentesis . TECHNIQUE: Single frontal chest x-ray. COMPARISON: 06/16/2017 FINDINGS: Endotracheal tube, nasogastric tube, left arm PICC line in place unchanged. . There is near complete evacuation of the right pleural effusion following thoracentesis without evidence of pneumothorax.. Mild left basilar atelectasis and small left pleural effusion is stable. Remainder of the lungs ar e clear. There is mild cardiomegaly unchanged. Calcific atherosclerosis of the aorta is present.. Th e osseous structures are intact. IMPRESSION: Decreased right pleural effusion following thoracentesis without evidence of pneumothorax. Stable left basilar consolidation and small left pleural effusion. Tubes and lines unchanged.. RPTAT: GG .Bao Perez MD, Date Time Electronically viewed and signed by .Bao Perez MD, on 06/17/2017 17:01 .L/
[2017-06-17 17:36] LABS: FLUID GLUCOSE 80 mg/dl; FLUID TYPE FLUID
[2017-06-17 17:37] LABS: FLUID LD 281 U/L
[2017-06-17 17:38] LABS: FLUID TOTAL PROTEIN 2.3 g/dl; FLUID TYPE FLUID
[2017-06-17 17:42] LABS: FLD CLARITY HAZY; FLD COLOR AMBER; FLD TYPE THORACENTHESIS
[2017-06-17 17:43] LABS: FLD MN% 81.2 %; FLD PMN% 18.8 %; FLD RBC 10000 /uL; FLD WBC 304 /cmm
[2017-06-17 21:04] LABS: CALCIUM 8.1 mg/dl (8.4-10.2); CREATININE 2.75 mg/dl (0.44-1.00); POTASSIUM 3.8 mmol/L (3.5-5.1)
[2017-06-17] MEDS: SERTRALINE 100 MG TAB PO SCH (21:36)
[2017-06-17] MEDS: MONTELUKAST 10 MG TAB PO SCH (21:37)
[2017-06-17] MEDS: RANITIDINE 150 MG TAB PO SCH (21:37)
--- NOTE | 2017-06-17 21:45 | RADRPT ---
Vent Rate: 65 bpm RR Interval: 0 msec [place] Interval: 0 msec QRS Duration: 98 msec QT Interval: 482 msec QTC Interval: 501 msec P-R-T Cyclone: 0 - 72 - 19 degrees Atrial fibrillation Possible Anterior infarct , age undetermined Abnormal ECG Electronically Signed By: Vinay Garcia [id number]
[2017-06-17] MEDS ORDERED: VANCOMYCIN 750 MG in DEXTROSE 5% 150 ML IVPB SCH (22:00)
[2017-06-18] VITALS (84 sets, daily range): BP systolic 81–185; BP diastolic 53–110; PULSE 63–111; RESP 7–28
[2017-06-18] MEDS: INSULIN ASPART [NOVOLOG] 3 ML PEN SC SCH ×6 (00:46→20:33)
[2017-06-18] MEDS: ACCU-CHEK XX SCH (01:01)
[2017-06-18 01:04] LABS: ADD UMIC YES; UR AMORPHOUS CRYSTAL FEW /HPF (NONE SEEN); UR ASCORBIC ACID NEGATIVE (NEGATIVE); UR BILIRUBIN (Dip) NEGATIVE (NEGATIVE); UR BLOOD (Dip) 1+ mg/dL (NEGATIVE); UR CLARITY SLIGHTLY CLOUDY (CLEAR); UR COLOR YELLOW (YELLOW); UR GLUCOSE (Dip) NEGATIVE (NEGATIVE); UR KETONES (Dip) NEGATIVE (NEGATIVE); UR LEUKOCYTE ESTERASE (Dip) NEGATIVE Leu/ul (NEGATIVE); UR NITRITE (Dip) NEGATIVE (NEGATIVE); UR RBC 22 /HPF (0-5); UR SPECIFIC GRAVITY (Dip) 1.013 (1.003-1.030); UR SQUAMOUS EPITHELIAL CELL FEW /HPF (FEW); UR TOTAL PROTEIN (Dip) NEGATIVE (NEGATIVE); UR UROBILINOGEN (Dip) NEGATIVE (NEGATIVE)
[2017-06-18 01:22] LABS: PROTEIN/CREAT RATIO 0.42 RATIO
[2017-06-18 05:12] LABS: BASOPHILS % 0.1 % (0.0-2.0); EOSINOPHILS % 0.5 % (0.0-7.0); HEMATOCRIT 27.3 % (37.0-47.0); HEMOGLOBIN 9.1 g/dl (12.0-16.0); LYMPHOCYTES % 12.1 % (15.0-51.0); MEAN CORPUSCULAR HEMOGLOBIN 30.3 pg (29.0-33.0); MEAN CORPUSCULAR HGB CONC 33.3 g/dl (32.0-37.0); MEAN PLATELET VOLUME 10.6 fl (7.4-10.4); MONOCYTE # 0.9 10^3/ul (0.3-0.9); MONOCYTES % 10.9 % (0.0-11.0); NEUTROPHIL # 6.5 10^3/ul (1.6-7.5); NEUTROPHILS % 75.8 % (39.0-77.0); PLATELET COUNT 171 10^3/UL (140-415); RED CELL DISTRIBUTION WIDTH 14.7 % (11.5-14.5); WHITE BLOOD COUNT 8.6 10^3/ul (4.8-10.8)
[2017-06-18] MEDS: PIPER-TAZO 2.25 GM (PMX) 50 ML IVPB SCH (05:23)
[2017-06-18] MEDS: DILTIAZEM 60 MG TAB GTB SCH ×3 (05:25→22:54)
[2017-06-18 05:42] LABS: CALCIUM 8.4 mg/dl (8.4-10.2); CREATININE 2.48 mg/dl (0.44-1.00)
[2017-06-18 05:49] LABS: MAGNESIUM 2.2 mg/dl (1.7-2.5); PHOSPHORUS 2.9 mg/dl (2.5-4.9)
[2017-06-18] MEDS: PROPOFOL 100 ML IV SCH (06:11)
[2017-06-18] MEDS: DEXTROSE 5%-0.9% NACL 1,000 ML IV SCH ×2 (06:13→17:13)
--- NOTE | 2017-06-18 07:52 | RADRPT ---
PROCEDURE: XR Chest. CLINICAL INDICATION: Shortness of breath. TECHNIQUE: Single frontal view. COMPARISON: 06/17/2017. FINDINGS: The endotracheal tube, nasogastric tube and left arm PICC line remain in satisfactory position. There is mild interstitial disease bilaterally consistent with pulmonary edema. There is left basila r atelectasis. The lungs are otherwise clear. The heart is enlarged. There is calcification in the a lyudmila consistent with atherosclerosis. There is no right pleural effusion. There is a small left pleural effusion. There is no pneumothorax. IMPRESSION: 1. Thin lines in satisfactory position. 2. Mild pulmonary edema. 3. Left basilar atelectasis. 4. Small left pleural effusion. 5. Cardiomegaly and atherosclerosis. 6. No change from the 06/17/2017 chest radiograph. RPTAT: QQ .Javed Velasquez MD, MD Date Time Electronically viewed and signed by .Javed Velasquez MD, MD on 06/18/2017 07:51 .R/
[2017-06-18 08:15] LABS: AADO2 Arterial 47.8 mmHg (7.0-24.0); Allen Test ACCEPTAB; Arterial Base Excess -3.7 mmol/L (-3.0-3); Arterial COHb 0.3 % (0.0-3.0); Arterial Fraction of Oxyhgb 97.7 % (93.0-99.0); Arterial HCO3 20.6 mmol/L (22.0-26.0); Arterial MetHb 0.2 % (0.0-1.5); Arterial Total Hemglobin 11.7 g/dl (12.0-18.0); MODE VENT - AC
--- NOTE | 2017-06-18 08:31 | CONS ---
Date/Time of Note Date/Time of Note DATE: 06/18/17 TIME: 08:20 Assessment/Plan Assessment/Plan Chief Complaint/Hosp Course 1. Acute renal failure, her renal function is improved today and her urine output has increased. Her clinical course seems most consistent with acute tubular necrosis due to some hypotensive episodes. 2. Urinary tract infection on antibiotics 3. Atrial fibrillation 4. Hypertension 5. Anemia 6. Respiratory failure now ventilator dependent Plan will decrease IV rate as she has been in positive fluid balance the last 2 days. She is also now on tube feeding. Will order labs for the morning. Problems: Consultation Date/Type/Reason Admit Date/Time Jun 14, 2017 at 09:27 Initial Consult Date Type of Consultation: nephrology Referring Provider: SARAH VINCENT 24 HR Interval Summary Free Text/Dictation She is in the intensive care unit intubated on a ventilator. She has been tapered off of pressors and is being tapered off of propofol. Subjective hx not possible: pt non-verbal Exam/Review of Systems Vital Signs Vitals Vital Signs Date Time Temp Pulse Resp B/P Pulse Ox O2 Delivery O2 Flow Rate FiO2 06/18/17 07:13 93 14 100 30 06/18/17 07:00 140/71 Mechanical Ventilator 06/18/17 04:00 97.9 06/16/17 08:00 2.0 Intake and Output 06/17/17 06/17/17 06/18/17 15:00 23:00 07:00 Intake Total 822.2 ml 764.08 ml 1199.37 ml Output Total 250 ml 270 ml 285 ml Balance 572.2 ml 494.08 ml 914.37 ml Exam Constitutional: frail, non-verbal ENMT: intubated Respiratory: clear to auscultation, normal air movement Cardiovascular: irregular rhythm Gastrointestinal: soft Musculoskeletal: nl extremities to inspection Results Result Diagram: 06/18/17 0400 06/18/17 0400 Results 24 hrs Laboratory Tests Test 06/17/17 08:45 06/17/17 11:00 06/17/17 13:23 06/17/17 16:14 Bedside Glucose 85 93 Urine Color YELLOW Urine Clarity CLOUDY A Urine pH 5.0 Urine Specific [place] 1.017 Urine Ketones TRACE A Urine Nitrite NEGATIVE Urine Bilirubin NEGATIVE Urine Urobilinogen NEGATIVE Urine Leukocyte Esterase TRACE A Urine Microscopic RBC 131 H Urine Microscopic WBC 10 H Urine Bacteria FEW A Urine Hemoglobin 2+ H Urine Glucose NEGATIVE Urine Total Protein 2+ H Body Fluid Type FLUID Body Fluid Volume 800.0 Body Fluid Color NAY Body Fluid Appearance HAZY Body Fluid WBC 304 Body Fluid RBC (Auto) 83350 Body Fluid Polynuclear WBCs (%) 18.8 Body Fluid Mononuclear Cells % Auto 81.2 Body Fluid Glucose 80 Body Fluid Total Protein 2.3 Body Fluid Lactate Dehydrogenase 281 Body Fluid Comment Test 06/17/17 18:06 06/17/17 20:14 06/17/17 21:29 06/17/17 23:00 Bedside Glucose 103 106 Sodium Level 135 Potassium Level 3.8 Chloride Level 103 Carbon Dioxide Level 21 Anion Gap 15 Blood Urea Nitrogen 58 H Creatinine 2.75 H Glucose Level 107 # Calcium Level 8.1 L Urine Color YELLOW Urine Clarity SLIGHTLY CLOUDY A Urine pH 5.0 Urine Specific [place] 1.013 Urine Ketones NEGATIVE Urine Nitrite NEGATIVE Urine Bilirubin NEGATIVE Urine Urobilinogen NEGATIVE Urine Leukocyte Esterase NEGATIVE Urine Microscopic RBC 22 H Urine Microscopic WBC 9 H Urine Squamous Epithelial Cells FEW Urine Amorphous Crystals FEW A Urine Eosinophils % 0.0 Urine Hemoglobin 1+ H Urine Random Creatinine 68.54 Urine Random Sodium 35 Urine Random Potassium 21.0 L Urine Protein/Creatinine Ratio 0.42 Urine Glucose NEGATIVE Urine Total Protein 29.0 H Test 06/18/17 00:43 06/18/17 04:00 06/18/17 05:22 06/18/17 07:00 Bedside Glucose 99 118 White Blood Count 8.6 Red Blood Count 3.00 L Hemoglobin 9.1 L Hematocrit 27.3 L Mean Corpuscular Volume 91.0 Mean Corpuscular Hemoglobin 30.3 Mean Corpuscular Hemoglobin Concent 33.3 Red Cell Distribution Width 14.7 H Platelet Count 171 Mean Platelet Volume 10.6 H Neutrophils % 75.8 Lymphocytes % 12.1 L Monocytes % 10.9 Eosinophils % 0.5 Basophils % 0.1 Nucleated Red Blood Cells % 0.0 Neutrophils # 6.5 Lymphocytes # 1.0 Monocytes # 0.9 Eosinophils # 0.0 Basophils # 0.0 Nucleated Red Blood Cells # 0.0 Sodium Level 135 Potassium Level 4.0 Chloride Level 106 Carbon Dioxide Level 22 Anion Gap 11 Blood Urea Nitrogen 59 H Creatinine 2.48 H Glucose Level 107 Calcium Level 8.4 Phosphorus Level 2.9 Magnesium Level 2.2 Random Vancomycin Level 9.8 Blood Gas Specimen Source Blood arterial Arterial Blood Date Drawn 06/18/2017 7:50:11 AM Arterial Blood pH (Temp corrected) 7.392 Arterial Blood pCO2 (Temp correct) 34.6 L Arterial Blood pO2 (Temp corrected) 125.4 H Arterial Blood HCO3 20.6 L Arterial Blood Base Excess -3.7 L Arterial Blood Oxygen Saturation 98.2 [place] Test ACCEPTAB Arterial Blood Gas Puncture Site Right Radial Arterial Blood Carboxyhemoglobin 0.3 Arterial Blood Methemoglobin 0.2 Blood Gas A-a O2 Differential 47.8 H Oxyhemoglobin Percent 97.7 Total Hemoglobin 11.7 L Blood Gas Temperature 37.0 Blood Gas Respiration Rate 14.0 Blood Gas Actual Respiration Rate 14 Blood Gas Modality VENT - AC FiO2 30.0 Blood Gas Tidal Volume 500.0 Blood Gas Low PEEP Setting 5.0 Blood Gas Notified Whom JLD Blood Gas Notified Time 06/18/2017 8:15:49 AM Medications Medications Current Medications Ondansetron HCl (Zofran Inj) 4 mg Q6H PRN IV NAUSEA AND/OR VOMITING Last administered on 06/16/17 00:28; Admin Dose 4 MG; Start 06/13/17 at 15:30 Acetaminophen (Tylenol Tab) 650 mg Q6H PRN PO PAIN LEVEL 1-3 OR FEVER; Start 06/13/17 at 15:30 Docusate Sodium (Colace) 100 mg Q12H PRN PO CONSTIPATION; Start 06/13/17 at 15 :30 Magnesium Hydroxide (Milk Of Mag) 30 ml DAILY PRN PO CONSTIPATION; Start 06/13 at 15:30 Hydralazine HCl (Apresoline) 10 mg Q6H PRN IV ELEVATED BLOOD PRESSURE Last administered on 06/14/17 00:02; Admin Dose 10 MG; Start 06/13/17 at 15:30 Nitroglycerin (Nitroglycerin (Sl Tab) 0.4 Mg) 1 tab Q5M PRN SL ANGINA; Start 06/13/17 at 15:30 Aspirin (Aspirin) 325 mg DAILY PO Last administered on 06/17/17 08:35; Admin Dose 325 MG; Start 06/14/17 at 09:00 Atorvastatin Calcium (Lipitor) 10 mg HS PO Last administered on 06/16/17 21: 47; Admin Dose 10 MG; Start 06/13/17 at 21:00; Status Future Hold Hydralazine HCl (Apresoline) 100 mg Q8 PO Last administered on 06/18/17 05:26 ; Admin Dose 100 MG; Start 06/13/17 at 22:00 Levothyroxine Sodium (Synthroid) 100 mcg DAILY PO Last administered on 08:35; Admin Dose 100 MCG; Start 06/14/17 at 09:00 Montelukast Sodium (Singulair) 10 mg QHS PO Last administered on 06/17/17 21: 37; Admin Dose 10 MG; Start 06/13/17 at 21:00 Ranitidine HCl (Zantac) 150 mg HS PO Last administered on 06/17/17 21:37; Admin Dose 150 MG; Start 06/13/17 at 21:00 Clonidine (Catapres) 0.1 mg Q6H PRN PO SBP > 170 Last administered on 03:38; Admin Dose 0.1 MG; Start 06/13/17 at 18:30 Metoprolol Tartrate (Lopressor) 25 mg BID PO Last administered on 06/17/17 21 :37; Admin Dose 25 MG; Start 06/14/17 at 05:30 Insulin Glargine (Lantus) 10 unit DAILY@20 SC ; Start 06/14/17 at 20:00; Status Future Hold Diagnostic Test (Pha) (Accu-Chek) 1 ea 02 XX ; Start 06/15/17 at 02:00 Miscellaneous Information 1 ea NOTE XX ; Start 06/14/17 at 06:00 Glucose (Glutose) 15 gm Q15M PRN PO DECREASED GLUCOSE; Start 06/14/17 at 06:00 Glucose (Glutose) 22.5 gm Q15M PRN PO DECREASED GLUCOSE; Start 06/14/17 at 06: 00 Dextrose (D50w Syringe) 25 ml Q15M PRN IV DECREASED GLUCOSE Last administered on 06/17/17 04:41; Admin Dose 25 ML; Start 06/14/17 at 06:00 Dextrose (D50w Syringe) 50 ml Q15M PRN IV DECREASED GLUCOSE; Start 06/14/17 at 06:00 Glucagon (Glucagen) 1 mg Q15M PRN IM DECREASED GLUCOSE; Start 06/14/17 at 06: 00 Glucose 15 gm 15 gm Q15M PRN BUCCAL DECREASED GLUCOSE; Start 06/14/17 at 06:00 Diltiazem HCl (Cardizem-D5W 125 Mg/125 ml Drip) 125 ml @ 0 mls/hr TITRATE IV Last administered on 06/14/17 21:55; Admin Dose 5 MLS/HR; Start 06/14/17 at 15:00 Sertraline HCl 50 mg 50 mg HS PO Last administered on 06/17/17 21:36; Admin Dose 50 MG; Start 06/15/17 at 21:00 Piperacillin Sod/ Tazobactam Sod 50 ml @ 100 mls/hr Q6 IVPB Last administered on 06/18/17 05:23; Admin Dose 100 MLS/HR; Start 06/16/17 at 12:00 Norepinephrine 250 ml @ 1.875 mls/ hr TITRATE IV Last administered on 00:34; Admin Dose 18.75 MLS/HR; Start 06/16/17 at 10:30 Dopamine HCl/ Dextrose 250 ml @ 5.325 mls/ hr TITRATE IV ; Start 06/16/17 at 11:00 Diltiazem HCl (Cardizem) 30 mg Q8 GTB Last administered on 06/18/17 05:25; Admin Dose 30 MG; Start 06/16/17 at 14:00 Enoxaparin Sodium (Lovenox) 60 mg DAILY SC Last administered on 06/17/17 08: 42; Admin Dose 60 MG; Start 06/17/17 at 09:00 IV Flush (NS 10 ml) 10 ml PRN PRN IV IV PROTOCOL; Start 06/16/17 at 14:00 Haloperidol (Haldol) 1 mg Q12 PRN IV agitation Last administered on 06/16/17 21:56; Admin Dose 1 MG; Start 06/16/17 at 20:30 Insulin Aspart NOVOLOG *MILD* ALGORI... Q4 SC ; Start 06/17/17 at 01:00 Propofol 100 ml @ 2.13 mls/hr Q12H IV Last administered on 06/18/17 06:11; Admin Dose 8.52 MLS/HR; Start 06/17/17 at 00:00 Midazolam HCl 50 ml @ 1 mls/hr TITRATE IV Last administered on 06/17/17 04:29 ; Admin Dose 10 MLS/HR; Start 06/17/17 at 00:30 Vancomycin HCl 100 ml @ 100 mls/hr Q48H IVPB ; Start 06/19/17 at 08:00 Dextrose/Sodium Chloride (D5-NS) 1,000 ml @ 100 mls/hr Q10H IV Last administered on 06/18/17 06:13; Admin Dose 100 MLS/HR; Start 06/17/17 at 09: 00 NEVILLE GARDUNO MD Jun 18, 2017 08:31
[2017-06-18] MEDS ORDERED: LEVOFLOXACIN 500MG/D5W (PMX) 100 ML IVPB SCH (09:00)
[2017-06-18] MEDS: ASPIRIN 325 MG TAB PO SCH (09:11)
[2017-06-18] MEDS: LEVOTHYROXINE 100 MCG TAB PO SCH (09:12)
[2017-06-18] MEDS: METOPROLOL 25 MG TAB PO SCH ×2 (09:12→20:32)
[2017-06-18] MEDS: ENOXAPARIN 60 MG/0.6 ML SYG SC SCH (09:13)
--- NOTE | 2017-06-18 09:26 | PN ---
DATE: 06/18/2017 SUBJECTIVE: The patient is sedated, unable to give history. OBJECTIVE: VITAL SIGNS: Afebrile, pulse of 90 to 110. Respiratory rate 14 on mechanical ventilation, blood pr essure 140/71, oxygen saturation 100% on FIO2 30% mechanical ventilation. LUNGS: Clear to auscultation bilaterally. HEART: Irregularly irregular. ABDOMEN: Soft, nontender, nondistended. Decreased bowel sounds. EXTREMITIES: No cyanosis, clubbing. There is trace edema tongue mildly edematous with healing smal l laceration, distal tongue. NEUROLOGIC: The patient is sedated. LABORATORY DATA: White blood cell count 8.6, hemoglobin 9.1, hematocrit 27.3, platelets 171, creati nine 2.48, BUN of 59. Blood sugar 107, magnesium 2.2, phosphorus 2.9, calcium 8.4. Sodium 135, pot assium 4.0, chloride 106, bicarbonate 22. Chest x-ray unchanged. ASSESSMENT AND PLAN: 1. Respiratory failure with hypercapnia. The patient remains on a vent and will go through weaning trial today. The patient may need to be continued on a ventilator due to her tongue edema, will di scuss with pulmonology. 2. Acute on chronic renal insufficiency, improved. Patient is making good urine output and creatin ine is improved. Appreciate Dr. Haque's input into this case. 3. Atrial fibrillation. Remains stable. Continue with diltiazem. 4. Hypertension/coronary artery disease. The patient got hypotensive during the nighttime, but has been receiving some hydralazine. We will discontinue this and only continue diltiazem for rate con trol. 5. Diabetes, stable. Continue with patient's current sliding scale. Will hold off on any insulin if possible as patient is on tube feedings so we will continue with sliding scale at this point. 6. Urinary tract infection. Will discontinue vancomycin and Zosyn and begin Levaquin. Dictated By: MORGAN SNOW MD SR/NTS Conf#: [id number] DID#: [id number] CC: SARAH VINCENT MD;*EndCC*
--- NOTE | 2017-06-18 10:50 | CONS ---
Date/Time of Note Date/Time of Note DATE: 06/18/17 TIME: 10:48 Consult Date/Type/Reason Admit Date/Time Jun 14, 2017 at 09:27 Type of Consultation: Pulmonary Ordering Provider: SARAH VINCENT Currently off vasopressor support. Improve urine output. Status post thoracentesis right lung. Hemodialysis held today. Objective Vital Signs Date Time Temp Pulse Resp B/P Pulse Ox O2 Delivery O2 Flow Rate FiO2 06/18/17 09:45 93 14 100 30 06/18/17 08:00 Bag Valve Mask 06/18/17 07:00 140/71 06/18/17 04:00 97.9 06/16/17 08:00 2.0 Intake and Output 06/17/17 06/17/17 06/18/17 14:59 22:59 06:59 Intake Total 724.3 ml 744.06 ml 1327.89 ml Output Total 260 ml 260 ml 325 ml Balance 464.3 ml 484.06 ml 1002.89 ml Exam PHYSICAL EXAMINATION: GENERAL: Elderly-appearing intubated sedation held this morning. Patient still somnolent. Tongue protruding. VITAL SIGNS: NECK: Supple. No JVD or lymphadenopathy. CARDIAC: S1, S2, no added sounds or murmurs. CHEST: Diminished air entry both lung bases. ABDOMEN: Soft, nontender. No guarding or rebound. EXTREMITIES: No cyanosis, clubbing, 1+ edema. NEUROLOGIC: Generalized weakness. Results/Medications Result Diagram: 06/18/17 0400 06/18/17 0400 Results 24 hrs Laboratory Tests Test 06/17/17 11:00 06/17/17 13:23 06/17/17 16:14 06/17/17 18:06 Urine Color YELLOW Urine Clarity CLOUDY A Urine pH 5.0 Urine Specific [place] 1.017 Urine Ketones TRACE A Urine Nitrite NEGATIVE Urine Bilirubin NEGATIVE Urine Urobilinogen NEGATIVE Urine Leukocyte Esterase TRACE A Urine Microscopic RBC 131 H Urine Microscopic WBC 10 H Urine Bacteria FEW A Urine Hemoglobin 2+ H Urine Glucose NEGATIVE Urine Total Protein 2+ H Bedside Glucose 93 103 Body Fluid Type FLUID Body Fluid Volume 800.0 Body Fluid Color NAY Body Fluid Appearance HAZY Body Fluid WBC 304 Body Fluid RBC (Auto) 95160 Body Fluid Polynuclear WBCs (%) 18.8 Body Fluid Mononuclear Cells % Auto 81.2 Body Fluid Glucose 80 Body Fluid Total Protein 2.3 Body Fluid Lactate Dehydrogenase 281 Body Fluid Comment Test 06/17/17 20:14 06/17/17 21:29 06/17/17 23:00 06/18/17 00:43 Sodium Level 135 Potassium Level 3.8 Chloride Level 103 Carbon Dioxide Level 21 Anion Gap 15 Blood Urea Nitrogen 58 H Creatinine 2.75 H Glucose Level 107 # Calcium Level 8.1 L Bedside Glucose 106 99 Urine Color YELLOW Urine Clarity SLIGHTLY CLOUDY A Urine pH 5.0 Urine Specific [place] 1.013 Urine Ketones NEGATIVE Urine Nitrite NEGATIVE Urine Bilirubin NEGATIVE Urine Urobilinogen NEGATIVE Urine Leukocyte Esterase NEGATIVE Urine Microscopic RBC 22 H Urine Microscopic WBC 9 H Urine Squamous Epithelial Cells FEW Urine Amorphous Crystals FEW A Urine Eosinophils % 0.0 Urine Hemoglobin 1+ H Urine Random Creatinine 68.54 Urine Random Sodium 35 Urine Random Potassium 21.0 L Urine Protein/Creatinine Ratio 0.42 Urine Glucose NEGATIVE Urine Total Protein 29.0 H Test 06/18/17 04:00 06/18/17 05:22 06/18/17 07:00 06/18/17 09:18 White Blood Count 8.6 Red Blood Count 3.00 L Hemoglobin 9.1 L Hematocrit 27.3 L Mean Corpuscular Volume 91.0 Mean Corpuscular Hemoglobin 30.3 Mean Corpuscular Hemoglobin Concent 33.3 Red Cell Distribution Width 14.7 H Platelet Count 171 Mean Platelet Volume 10.6 H Neutrophils % 75.8 Lymphocytes % 12.1 L Monocytes % 10.9 Eosinophils % 0.5 Basophils % 0.1 Nucleated Red Blood Cells % 0.0 Neutrophils # 6.5 Lymphocytes # 1.0 Monocytes # 0.9 Eosinophils # 0.0 Basophils # 0.0 Nucleated Red Blood Cells # 0.0 Sodium Level 135 Potassium Level 4.0 Chloride Level 106 Carbon Dioxide Level 22 Anion Gap 11 Blood Urea Nitrogen 59 H Creatinine 2.48 H Glucose Level 107 Calcium Level 8.4 Phosphorus Level 2.9 Magnesium Level 2.2 Random Vancomycin Level 9.8 Bedside Glucose 118 151 Blood Gas Specimen Source Blood arterial Arterial Blood Date Drawn 06/18/2017 7:50:11 AM Arterial Blood pH (Temp corrected) 7.392 Arterial Blood pCO2 (Temp correct) 34.6 L Arterial Blood pO2 (Temp corrected) 125.4 H Arterial Blood HCO3 20.6 L Arterial Blood Base Excess -3.7 L Arterial Blood Oxygen Saturation 98.2 [place] Test ACCEPTAB Arterial Blood Gas Puncture Site Right Radial Arterial Blood Carboxyhemoglobin 0.3 Arterial Blood Methemoglobin 0.2 Blood Gas A-a O2 Differential 47.8 H Oxyhemoglobin Percent 97.7 Total Hemoglobin 11.7 L Blood Gas Temperature 37.0 Blood Gas Respiration Rate 14.0 Blood Gas Actual Respiration Rate 14 Blood Gas Modality VENT - AC FiO2 30.0 Blood Gas Tidal Volume 500.0 Blood Gas Low PEEP Setting 5.0 Blood Gas Notified Whom JLD Blood Gas Notified Time 06/18/2017 8:15:49 AM Medications Current Medications Ondansetron HCl (Zofran Inj) 4 mg Q6H PRN IV NAUSEA AND/OR VOMITING Last administered on 06/16/17 00:28; Admin Dose 4 MG; Start 06/13/17 at 15:30 Acetaminophen (Tylenol Tab) 650 mg Q6H PRN PO PAIN LEVEL 1-3 OR FEVER; Start 06/13/17 at 15:30 Docusate Sodium (Colace) 100 mg Q12H PRN PO CONSTIPATION; Start 06/13/17 at 15 :30 Magnesium Hydroxide (Milk Of Mag) 30 ml DAILY PRN PO CONSTIPATION; Start 06/13 at 15:30 Hydralazine HCl (Apresoline) 10 mg Q6H PRN IV ELEVATED BLOOD PRESSURE Last administered on 06/14/17 00:02; Admin Dose 10 MG; Start 06/13/17 at 15:30 Nitroglycerin (Nitroglycerin (Sl Tab) 0.4 Mg) 1 tab Q5M PRN SL ANGINA; Start 06/13/17 at 15:30 Aspirin (Aspirin) 325 mg DAILY PO Last administered on 06/18/17 09:11; Admin Dose 325 MG; Start 06/14/17 at 09:00 Atorvastatin Calcium (Lipitor) 10 mg HS PO Last administered on 06/16/17 21: 47; Admin Dose 10 MG; Start 06/13/17 at 21:00; Status Future Hold Levothyroxine Sodium (Synthroid) 100 mcg DAILY PO Last administered on 09:12; Admin Dose 100 MCG; Start 06/14/17 at 09:00 Montelukast Sodium (Singulair) 10 mg QHS PO Last administered on 06/17/17 21: 37; Admin Dose 10 MG; Start 06/13/17 at 21:00 Ranitidine HCl (Zantac) 150 mg HS PO Last administered on 06/17/17 21:37; Admin Dose 150 MG; Start 06/13/17 at 21:00 Metoprolol Tartrate (Lopressor) 25 mg BID PO Last administered on 06/18/17 09 :12; Admin Dose 25 MG; Start 06/14/17 at 05:30 Insulin Glargine (Lantus) 10 unit DAILY@20 SC ; Start 06/14/17 at 20:00; Status Future Hold Diagnostic Test (Pha) (Accu-Chek) 1 ea 02 XX ; Start 06/15/17 at 02:00 Miscellaneous Information 1 ea NOTE XX ; Start 06/14/17 at 06:00 Glucose (Glutose) 15 gm Q15M PRN PO DECREASED GLUCOSE; Start 06/14/17 at 06:00 Glucose (Glutose) 22.5 gm Q15M PRN PO DECREASED GLUCOSE; Start 06/14/17 at 06: 00 Dextrose (D50w Syringe) 25 ml Q15M PRN IV DECREASED GLUCOSE Last administered on 06/17/17 04:41; Admin Dose 25 ML; Start 06/14/17 at 06:00 Dextrose (D50w Syringe) 50 ml Q15M PRN IV DECREASED GLUCOSE; Start 06/14/17 at 06:00 Glucagon (Glucagen) 1 mg Q15M PRN IM DECREASED GLUCOSE; Start 06/14/17 at 06: 00 Glucose 15 gm 15 gm Q15M PRN BUCCAL DECREASED GLUCOSE; Start 06/14/17 at 06:00 Diltiazem HCl (Cardizem-D5W 125 Mg/125 ml Drip) 125 ml @ 0 mls/hr TITRATE IV Last administered on 06/14/17 21:55; Admin Dose 5 MLS/HR; Start 06/14/17 at 15:00 Sertraline HCl 50 mg 50 mg HS PO Last administered on 06/17/17 21:36; Admin Dose 50 MG; Start 06/15/17 at 21:00 Norepinephrine 250 ml @ 1.875 mls/ hr TITRATE IV Last administered on 00:34; Admin Dose 18.75 MLS/HR; Start 06/16/17 at 10:30 Dopamine HCl/ Dextrose 250 ml @ 5.325 mls/ hr TITRATE IV ; Start 06/16/17 at 11:00 Diltiazem HCl (Cardizem) 30 mg Q8 GTB Last administered on 06/18/17 05:25; Admin Dose 30 MG; Start 06/16/17 at 14:00 Enoxaparin Sodium (Lovenox) 60 mg DAILY SC Last administered on 06/18/17 09: 13; Admin Dose 60 MG; Start 06/17/17 at 09:00 IV Flush (NS 10 ml) 10 ml PRN PRN IV IV PROTOCOL; Start 06/16/17 at 14:00 Haloperidol (Haldol) 1 mg Q12 PRN IV agitation Last administered on 06/16/17 21:56; Admin Dose 1 MG; Start 06/16/17 at 20:30 Insulin Aspart NOVOLOG *MILD* ALGORI... Q4 SC Last administered on 06/18/17 09:23; Admin Dose 1 UNIT; Start 06/17/17 at 01:00 Propofol 100 ml @ 2.13 mls/hr Q12H IV Last administered on 06/18/17 06:11; Admin Dose 8.52 MLS/HR; Start 06/17/17 at 00:00 Midazolam HCl 50 ml @ 1 mls/hr TITRATE IV Last administered on 06/17/17 04:29 ; Admin Dose 10 MLS/HR; Start 06/17/17 at 00:30 Dextrose/Sodium Chloride 1,000 ml @ 80 mls/hr [id number] IV Last administered on 06/18/17 06:13; Admin Dose 100 MLS/HR; Start 06/17/17 at 09:00 Levofloxacin/ Dextrose (Levaquin 500mg/ D5W 100 ml (Pmx)) 100 ml @ 100 mls/hr Q48H IVPB Last administered on 06/18/17 09:11; Admin Dose 100 MLS/HR; Start 06/18/17 at 09:00 Assessment/Plan Chief Complaint/Hosp Course IMPRESSION: 1. Acute hypercapnic respiratory failure, now intubated on mechanical ventilation. Chest x-ray demonstrates a moderate to large right pleural effusion. Status post thoracentesis. Pleural fluid appears transudative. Cultures and cytology pending. 2. History of hypertension. 3. Atrial fibrillation with rapid ventricular rate. Currently rate controlled. 4. Diabetes mellitus. 5. Status post shock. 6. Acute renal failure. Likely ATN injury. Renal function appears to be stabilizing. Plan 1. Continued mechanical ventilation, CPAP trial when patient more alert. 2. Vasopressors as needed to keep MAP > 65 3. Hold sedation if tolerated. 4. Deep venous thrombosis and gastrointestinal prophylaxis. 5. Right lung thoracentesis with pleural fluid studies pending. 6. Start tube feeding. 7. Renal recommendations Prognosis remains guarded. Problems: YAZMIN VARGAS MD, [facility] Jun 18, 2017 10:50
[2017-06-18] MEDS ORDERED: VANCOMYCIN 1 GM in NS 250 ML IVPB SCH (14:00)
--- NOTE | 2017-06-18 14:22 | CONS ---
Date/Time of Note Date/Time of Note DATE: 06/18/17 TIME: 14:16 Assessment/Plan Assessment/Plan Chief Complaint/Hosp Course IMP: 1.Hypotension-improved off of pressors/NL EF by echo this admit 2. AF with RVR-overall improved HR 3. Renal failure 4. Hypercarbic resp failure s/p intubation 5. Hypothyroid 6. Renal failure Recc: -Tele -serial ecg's -Follow volume status closely -Picc line placement -wean towards extubation as possible -Continue lovenox QD -Follow HR/BP/volume status closely -Continue BB and follow HR closely -Dose IVP digoxin Problems: Consultation Date/Type/Reason Admit Date/Time Jun 14, 2017 at 09:27 Initial Consult Date 06/15/17 Type of Consultation: cardiology Reason for Consultation AF/CHF Referring Provider: SARAH VINCENT Exam/Review of Systems Vital Signs Vitals Vital Signs Date Time Temp Pulse Resp B/P Pulse Ox O2 Delivery O2 Flow Rate FiO2 06/18/17 12:52 97 14 100 30 06/18/17 12:45 125/68 06/18/17 12:00 98.0 Mechanical Ventilator 06/16/17 08:00 2.0 Intake and Output 06/17/17 06/17/17 06/18/17 15:00 23:00 07:00 Intake Total 822.2 ml 764.08 ml 1219.37 ml Output Total 250 ml 270 ml 320 ml Balance 572.2 ml 494.08 ml 899.37 ml Exam Review of Systems: CONSTITUTIONAL: No fevers, chills. PULMONARY: intubated CARDIOVASCULAR: No chest pain/palpitations GASTROINTESTINAL: No nausea/vomiting. GENITOURINARY: No hematuria/dysuria. MUSCULOSKELETAL: No myagias/arthalgias. PSYCHIATRIC: The patient denies depression. NEUROLOGIC: No weakness Constitutional: other (sedated) Psych: no complaints Neck: jvd (9 cm waater), supple Respiratory: other (intubated) Cardiovascular: regular rate and rhythm Gastrointestinal: non-tender, soft Musculoskeletal: muscle tone (normal) Extremities: edema (traced/B) Neurological: other (sedated) Results Result Diagram: 06/18/17 0400 06/18/17 0400 Results 24 hrs Laboratory Tests Test 06/17/17 16:14 06/17/17 18:06 06/17/17 20:14 06/17/17 21:29 Body Fluid Type FLUID Body Fluid Volume 800.0 Body Fluid Color NAY Body Fluid Appearance HAZY Body Fluid WBC 304 Body Fluid RBC (Auto) 20495 Body Fluid Polynuclear WBCs (%) 18.8 Body Fluid Mononuclear Cells % Auto 81.2 Body Fluid Glucose 80 Body Fluid Total Protein 2.3 Body Fluid Lactate Dehydrogenase 281 Body Fluid Comment Bedside Glucose 103 106 Sodium Level 135 Potassium Level 3.8 Chloride Level 103 Carbon Dioxide Level 21 Anion Gap 15 Blood Urea Nitrogen 58 H Creatinine 2.75 H Glucose Level 107 # Calcium Level 8.1 L Test 06/17/17 23:00 06/18/17 00:43 06/18/17 04:00 06/18/17 05:22 Urine Color YELLOW Urine Clarity SLIGHTLY CLOUDY A Urine pH 5.0 Urine Specific [place] 1.013 Urine Ketones NEGATIVE Urine Nitrite NEGATIVE Urine Bilirubin NEGATIVE Urine Urobilinogen NEGATIVE Urine Leukocyte Esterase NEGATIVE Urine Microscopic RBC 22 H Urine Microscopic WBC 9 H Urine Squamous Epithelial Cells FEW Urine Amorphous Crystals FEW A Urine Eosinophils % 0.0 Urine Hemoglobin 1+ H Urine Random Creatinine 68.54 Urine Random Sodium 35 Urine Random Potassium 21.0 L Urine Protein/Creatinine Ratio 0.42 Urine Glucose NEGATIVE Urine Total Protein 29.0 H Bedside Glucose 99 118 White Blood Count 8.6 Red Blood Count 3.00 L Hemoglobin 9.1 L Hematocrit 27.3 L Mean Corpuscular Volume 91.0 Mean Corpuscular Hemoglobin 30.3 Mean Corpuscular Hemoglobin Concent 33.3 Red Cell Distribution Width 14.7 H Platelet Count 171 Mean Platelet Volume 10.6 H Neutrophils % 75.8 Lymphocytes % 12.1 L Monocytes % 10.9 Eosinophils % 0.5 Basophils % 0.1 Nucleated Red Blood Cells % 0.0 Neutrophils # 6.5 Lymphocytes # 1.0 Monocytes # 0.9 Eosinophils # 0.0 Basophils # 0.0 Nucleated Red Blood Cells # 0.0 Sodium Level 135 Potassium Level 4.0 Chloride Level 106 Carbon Dioxide Level 22 Anion Gap 11 Blood Urea Nitrogen 59 H Creatinine 2.48 H Glucose Level 107 Calcium Level 8.4 Phosphorus Level 2.9 Magnesium Level 2.2 Random Vancomycin Level 9.8 Test 06/18/17 07:00 06/18/17 09:18 06/18/17 12:58 Blood Gas Specimen Source Blood arterial Arterial Blood Date Drawn 06/18/2017 7:50:11 AM Arterial Blood pH (Temp corrected) 7.392 Arterial Blood pCO2 (Temp correct) 34.6 L Arterial Blood pO2 (Temp corrected) 125.4 H Arterial Blood HCO3 20.6 L Arterial Blood Base Excess -3.7 L Arterial Blood Oxygen Saturation 98.2 Carlton Test ACCEPTAB Arterial Blood Gas Puncture Site Right Radial Arterial Blood Carboxyhemoglobin 0.3 Arterial Blood Methemoglobin 0.2 Blood Gas A-a O2 Differential 47.8 H Oxyhemoglobin Percent 97.7 Total Hemoglobin 11.7 L Blood Gas Temperature 37.0 Blood Gas Respiration Rate 14.0 Blood Gas Actual Respiration Rate 14 Blood Gas Modality VENT - AC FiO2 30.0 Blood Gas Tidal Volume 500.0 Blood Gas Low PEEP Setting 5.0 Blood Gas Notified Whom JLD Blood Gas Notified Time 06/18/2017 8:15:49 AM Bedside Glucose 151 172 Medications Medications Current Medications Ondansetron HCl (Zofran Inj) 4 mg Q6H PRN IV NAUSEA AND/OR VOMITING Last administered on 06/16/17 00:28; Admin Dose 4 MG; Start 06/13/17 at 15:30 Acetaminophen (Tylenol Tab) 650 mg Q6H PRN PO PAIN LEVEL 1-3 OR FEVER; Start 06/13/17 at 15:30 Docusate Sodium (Colace) 100 mg Q12H PRN PO CONSTIPATION; Start 06/13/17 at 15 :30 Magnesium Hydroxide (Milk Of Mag) 30 ml DAILY PRN PO CONSTIPATION; Start 06/13 at 15:30 Hydralazine HCl (Apresoline) 10 mg Q6H PRN IV ELEVATED BLOOD PRESSURE Last administered on 06/14/17 00:02; Admin Dose 10 MG; Start 06/13/17 at 15:30 Nitroglycerin (Nitroglycerin (Sl Tab) 0.4 Mg) 1 tab Q5M PRN SL ANGINA; Start 06/13/17 at 15:30 Aspirin (Aspirin) 325 mg DAILY PO Last administered on 06/18/17 09:11; Admin Dose 325 MG; Start 06/14/17 at 09:00 Atorvastatin Calcium (Lipitor) 10 mg HS PO Last administered on 06/16/17 21: 47; Admin Dose 10 MG; Start 06/13/17 at 21:00; Status Future Hold Levothyroxine Sodium (Synthroid) 100 mcg DAILY PO Last administered on 09:12; Admin Dose 100 MCG; Start 06/14/17 at 09:00 Montelukast Sodium (Singulair) 10 mg QHS PO Last administered on 06/17/17 21: 37; Admin Dose 10 MG; Start 06/13/17 at 21:00 Ranitidine HCl (Zantac) 150 mg HS PO Last administered on 06/17/17 21:37; Admin Dose 150 MG; Start 06/13/17 at 21:00 Metoprolol Tartrate (Lopressor) 25 mg BID PO Last administered on 06/18/17 09 :12; Admin Dose 25 MG; Start 06/14/17 at 05:30 Insulin Glargine (Lantus) 10 unit DAILY@20 SC ; Start 06/14/17 at 20:00; Status Future Hold Diagnostic Test (Pha) (Accu-Chek) 1 ea 02 XX ; Start 06/15/17 at 02:00 Miscellaneous Information 1 ea NOTE XX ; Start 06/14/17 at 06:00 Glucose (Glutose) 15 gm Q15M PRN PO DECREASED GLUCOSE; Start 06/14/17 at 06:00 Glucose (Glutose) 22.5 gm Q15M PRN PO DECREASED GLUCOSE; Start 06/14/17 at 06: 00 Dextrose (D50w Syringe) 25 ml Q15M PRN IV DECREASED GLUCOSE Last administered on 06/17/17 04:41; Admin Dose 25 ML; Start 06/14/17 at 06:00 Dextrose (D50w Syringe) 50 ml Q15M PRN IV DECREASED GLUCOSE; Start 06/14/17 at 06:00 Glucagon (Glucagen) 1 mg Q15M PRN IM DECREASED GLUCOSE; Start 06/14/17 at 06: 00 Glucose 15 gm 15 gm Q15M PRN BUCCAL DECREASED GLUCOSE; Start 06/14/17 at 06:00 Diltiazem HCl (Cardizem-D5W 125 Mg/125 ml Drip) 125 ml @ 0 mls/hr TITRATE IV Last administered on 06/14/17 21:55; Admin Dose 5 MLS/HR; Start 06/14/17 at 15:00 Sertraline HCl 50 mg 50 mg HS PO Last administered on 06/17/17 21:36; Admin Dose 50 MG; Start 06/15/17 at 21:00 Norepinephrine 250 ml @ 1.875 mls/ hr TITRATE IV Last administered on 00:34; Admin Dose 18.75 MLS/HR; Start 06/16/17 at 10:30 Dopamine HCl/ Dextrose 250 ml @ 5.325 mls/ hr TITRATE IV ; Start 06/16/17 at 11:00 Diltiazem HCl (Cardizem) 30 mg Q8 GTB Last administered on 06/18/17 13:48; Admin Dose 30 MG; Start 06/16/17 at 14:00 Enoxaparin Sodium (Lovenox) 60 mg DAILY SC Last administered on 06/18/17 09: 13; Admin Dose 60 MG; Start 06/17/17 at 09:00 IV Flush (NS 10 ml) 10 ml PRN PRN IV IV PROTOCOL; Start 06/16/17 at 14:00 Haloperidol (Haldol) 1 mg Q12 PRN IV agitation Last administered on 06/16/17 21:56; Admin Dose 1 MG; Start 06/16/17 at 20:30 Insulin Aspart NOVOLOG *MILD* ALGORI... Q4 SC Last administered on 06/18/17 13:03; Admin Dose 1 UNIT; Start 06/17/17 at 01:00 Propofol 100 ml @ 2.13 mls/hr Q12H IV Last administered on 06/18/17 06:11; Admin Dose 8.52 MLS/HR; Start 06/17/17 at 00:00 Midazolam HCl 50 ml @ 1 mls/hr TITRATE IV Last administered on 06/17/17 04:29 ; Admin Dose 10 MLS/HR; Start 06/17/17 at 00:30 Dextrose/Sodium Chloride 1,000 ml @ 80 mls/hr [id number] IV Last administered on 06/18/17 06:13; Admin Dose 100 MLS/HR; Start 06/17/17 at 09:00 Levofloxacin/ Dextrose (Levaquin 500mg/ D5W 100 ml (Pmx)) 100 ml @ 100 mls/hr Q48H IVPB Last administered on 06/18/17 09:11; Admin Dose 100 MLS/HR; Start 06/18/17 at 09:00 WEN GOFF Jun 18, 2017 14:22
[2017-06-18] MEDS ORDERED: DIGOXIN 500 MCG INJ IV ONE (14:30)
[2017-06-18] MEDS: SERTRALINE 100 MG TAB PO SCH (20:32)
[2017-06-18] MEDS: MONTELUKAST 10 MG TAB PO SCH (20:32)
[2017-06-18] MEDS: RANITIDINE 150 MG TAB PO SCH (20:32)
[2017-06-18] MEDS ORDERED: HYDROCORTISONE 100 MG INJ IV ONE (22:34)
[2017-06-19] VITALS (69 sets, daily range): BP systolic 107–186; BP diastolic 56–143; PULSE 39–137; RESP 7–22
[2017-06-19] MEDS: INSULIN ASPART [NOVOLOG] 3 ML PEN SC SCH ×6 (01:16→20:49)
[2017-06-19] MEDS: ACCU-CHEK XX SCH (02:18)
[2017-06-19] MEDS: DEXTROSE 5%-0.9% NACL 1,000 ML IV SCH ×2 (03:57→20:30)
[2017-06-19 05:23] LABS: ABNORMAL IP MESSAGE 1; HEMATOCRIT 29.4 % (37.0-47.0); HEMOGLOBIN 9.7 g/dl (12.0-16.0); LYMPHOCYTES # 0.5 10^3/ul (0.8-2.9); LYMPHOCYTES % 4.5 % (15.0-51.0); MEAN CORPUSCULAR HEMOGLOBIN 30.1 pg (29.0-33.0); MEAN CORPUSCULAR VOLUME 91.3 fl (82.0-101.0); MEAN PLATELET VOLUME 10.9 fl (7.4-10.4); MONOCYTE # 0.4 10^3/ul (0.3-0.9); MONOCYTES % 3.2 % (0.0-11.0); NEUTROPHIL # 10.7 10^3/ul (1.6-7.5); NEUTROPHILS % 91.6 % (39.0-77.0); PLATELET COUNT 206 10^3/UL (140-415); RED BLOOD COUNT 3.22 10^6/ul (4.20-5.40); RED CELL DISTRIBUTION WIDTH 14.5 % (11.5-14.5); WHITE BLOOD COUNT 11.6 10^3/ul (4.8-10.8)
[2017-06-19 05:31] LABS: POSITIVE DIFF @See below
[2017-06-19] MEDS: PROPOFOL 100 ML IV SCH ×2 (05:49→12:00)
[2017-06-19 05:57] LABS: ALBUMIN/GLOBULIN RATIO 1.11; BILIRUBIN,INDIRECT 0.1 mg/dl (0-1.1); BILIRUBIN,TOTAL 0.1 mg/dl (0.2-1.3); CALCIUM 8.3 mg/dl (8.4-10.2); CREATININE 2.05 mg/dl (0.44-1.00); MAGNESIUM 2.2 mg/dl (1.7-2.5); PHOSPHORUS 3.2 mg/dl (2.5-4.9); POTASSIUM 4.2 mmol/L (3.5-5.1); TOTAL PROTEIN 5.7 g/dl (6.1-8.1)
[2017-06-19] MEDS: DILTIAZEM 60 MG TAB GTB SCH ×3 (06:00→22:00)
[2017-06-19] MEDS ORDERED: VANCOMYCIN 500MG/NS (PMX) 100 ML IVPB SCH (08:00)
--- NOTE | 2017-06-19 08:00 | RADRPT ---
PROCEDURE: XR Chest. TECHNIQUE: Single frontal radiograph. CLINICAL INDICATION: Pneumonia. COMPARISON: 11/18/2015. FINDINGS: Small to moderate left pleural effusion in the background of low lung volumes and enlarged cardiac s ilhouette. Tip of endotracheal tube terminates 3.1 cm from audelia. Left-sided PICC and nasogastric tube are als o in place in satisfactory position. IMPRESSION: Satisfactory position of lines and tubes. Small to moderate left pleural effusion in the background of low lung volumes, mild vascular congest ion, and cardiomegaly. RPTAT: EE .Brian Mills MD, MD Date Time Electronically viewed and signed by .Brian Mills MD, MD on 06/19/2017 08:05 .C/
[2017-06-19] MEDS: METOPROLOL 25 MG TAB PO SCH (08:02)
[2017-06-19] MEDS: LEVOTHYROXINE 100 MCG TAB PO SCH (08:02)
[2017-06-19] MEDS: ASPIRIN 325 MG TAB PO SCH (08:02)
[2017-06-19] MEDS: ENOXAPARIN 60 MG/0.6 ML SYG SC SCH (08:04)
[2017-06-19 08:18] LABS: Allen Test ACCEPTAB; Arterial Base Excess -1.6 mmol/L (-3.0-3); Arterial COHb 0.3 % (0.0-3.0); Arterial Fraction of Oxyhgb 98.7 % (93.0-99.0); Arterial HCO3 23.4 mmol/L (22.0-26.0); Arterial MetHb 0.1 % (0.0-1.5); Arterial Total Hemglobin 10.9 g/dl (12.0-18.0); MODE VENT - AC
[2017-06-19] MEDS ORDERED: HYDROCORTISONE 100 MG INJ IV ONE (08:30)
--- NOTE | 2017-06-19 08:42 | CONS ---
Date/Time of Note Date/Time of Note DATE: 06/19/17 TIME: 08:35 Assessment/Plan Assessment/Plan Chief Complaint/Hosp Course 1. Acute renal failure, her renal function is improved today and her urine output has increased. Her clinical course seems most consistent with acute tubular necrosis due to some hypotensive episodes . She could be entering into a diuretic phase of ATN recovery. Will monitor urine output closely. Can give dose of diuretic if urine output drops off. 2. Urinary tract infection on antibiotics 3. Atrial fibrillation 4. Hypertension 5. Anemia 6. Respiratory failure now ventilator dependent Plan will decrease IV rate as she has been in positive fluid balance the last 2 days. She is also now on tube feeding. Will order labs for the morning. Problems: Consultation Date/Type/Reason Admit Date/Time Jun 14, 2017 at 09:27 Type of Consultation: nephrology Referring Provider: SARAH VINCENT 24 HR Interval Summary Subjective hx not possible: pt non-verbal Exam/Review of Systems Vital Signs Vitals Vital Signs Date Time Temp Pulse Resp B/P Pulse Ox O2 Delivery O2 Flow Rate FiO2 06/19/17 08:00 98.9 112 14 167/98 100 Mechanical Ventilator 06/19/17 07:10 30 06/16/17 08:00 2.0 Intake and Output 06/18/17 06/18/17 06/19/17 15:00 23:00 07:00 Intake Total 1143.380 ml 1103.440 ml 977.690 ml Output Total 250 ml 455 ml 400 ml Balance 893.380 ml 648.440 ml 577.690 ml Exam She is intubated and has some scattered upper airway sounds. Constitutional: non-verbal ENMT: intubated Respiratory: other Cardiovascular: edema, irregular rhythm Gastrointestinal: soft Musculoskeletal: nl extremities to inspection Results Result Diagram: 06/19/17 0400 06/19/17 0400 Results 24 hrs Laboratory Tests Test 06/18/17 09:18 06/18/17 12:58 06/18/17 17:14 06/18/17 20:31 Bedside Glucose 151 172 143 115 Test 06/19/17 01:12 06/19/17 02:16 06/19/17 04:00 06/19/17 05:17 Bedside Glucose 151 148 209 White Blood Count 11.6 #H Red Blood Count 3.22 L Hemoglobin 9.7 L Hematocrit 29.4 L Mean Corpuscular Volume 91.3 Mean Corpuscular Hemoglobin 30.1 Mean Corpuscular Hemoglobin Concent 33.0 Red Cell Distribution Width 14.5 Platelet Count 206 # Mean Platelet Volume 10.9 H Neutrophils % 91.6 H Lymphocytes % 4.5 L Monocytes % 3.2 Eosinophils % 0.0 Basophils % 0.0 Nucleated Red Blood Cells % 0.0 Neutrophils # 10.7 H Lymphocytes # 0.5 L Monocytes # 0.4 Eosinophils # 0.0 Basophils # 0.0 Nucleated Red Blood Cells # 0.0 Sodium Level 137 Potassium Level 4.2 Chloride Level 106 Carbon Dioxide Level 22 Anion Gap 13 Blood Urea Nitrogen 46 #H Creatinine 2.05 H Glucose Level 181 Calcium Level 8.3 L Phosphorus Level 3.2 Magnesium Level 2.2 Total Bilirubin 0.1 L Direct Bilirubin 0.00 Indirect Bilirubin 0.1 Aspartate Amino Transf (AST/SGOT) 45 Alanine Aminotransferase (ALT/SGPT) 56 Alkaline Phosphatase 34 L Total Protein 5.7 L Albumin 3.0 L Globulin 2.70 Albumin/Globulin Ratio 1.11 Test 06/19/17 07:00 Blood Gas Specimen Source Blood arterial Arterial Blood Date Drawn 06/19/2017 7:30:42 AM Arterial Blood pH (Temp corrected) 7.375 Arterial Blood pCO2 (Temp correct) 41.0 Arterial Blood pO2 (Temp corrected) 204.6 H Arterial Blood HCO3 23.4 Arterial Blood Base Excess -1.6 Arterial Blood Oxygen Saturation 99.1 Carlton Test ACCEPTAB Arterial Blood Gas Puncture Site Right Radial Arterial Blood Carboxyhemoglobin 0.3 Arterial Blood Methemoglobin 0.1 Oxyhemoglobin Percent 98.7 Total Hemoglobin 10.9 L Blood Gas Temperature 37.0 Blood Gas Respiration Rate 14.0 Blood Gas Actual Respiration Rate 14 Blood Gas Modality VENT - AC FiO2 30.0 Blood Gas Tidal Volume 500.0 Blood Gas Low PEEP Setting 5.0 Blood Gas Critical Value Read Back Medina MADDOX RN Blood Gas Notified Whom GHASSAND Blood Gas Notified Time 06/19/2017 8:17:58 AM Medications Medications Current Medications Ondansetron HCl (Zofran Inj) 4 mg Q6H PRN IV NAUSEA AND/OR VOMITING Last administered on 06/16/17t 00:28; Admin Dose 4 MG; Start 06/13/17 at 15:30 Acetaminophen (Tylenol Tab) 650 mg Q6H PRN PO PAIN LEVEL 1-3 OR FEVER; Start 06/13/17 at 15:30 Docusate Sodium (Colace) 100 mg Q12H PRN PO CONSTIPATION; Start 06/13/17 at 15 :30 Magnesium Hydroxide (Milk Of Mag) 30 ml DAILY PRN PO CONSTIPATION; Start 06/13 at 15:30 Hydralazine HCl (Apresoline) 10 mg Q6H PRN IV ELEVATED BLOOD PRESSURE Last administered on 06/14/17 00:02; Admin Dose 10 MG; Start 06/13/17 at 15:30 Nitroglycerin (Nitroglycerin (Sl Tab) 0.4 Mg) 1 tab Q5M PRN SL ANGINA; Start 06/13/17 at 15:30 Aspirin (Aspirin) 325 mg DAILY PO Last administered on 06/19/17 08:02; Admin Dose 325 MG; Start 06/14/17 at 09:00 Atorvastatin Calcium (Lipitor) 10 mg HS PO Last administered on 06/16/17 21: 47; Admin Dose 10 MG; Start 06/13/17 at 21:00; Status Future Hold Levothyroxine Sodium (Synthroid) 100 mcg DAILY PO Last administered on 08:02; Admin Dose 100 MCG; Start 06/14/17 at 09:00 Montelukast Sodium (Singulair) 10 mg QHS PO Last administered on 06/18/17 20: 32; Admin Dose 10 MG; Start 06/13/17 at 21:00 Ranitidine HCl (Zantac) 150 mg HS PO Last administered on 06/18/17 20:32; Admin Dose 150 MG; Start 06/13/17 at 21:00 Metoprolol Tartrate (Lopressor) 25 mg BID PO Last administered on 06/19/17 08 :02; Admin Dose 25 MG; Start 06/14/17 at 05:30 Insulin Glargine (Lantus) 10 unit DAILY@20 SC ; Start 06/14/17 at 20:00; Status Future Hold Diagnostic Test (Pha) (Accu-Chek) 1 ea 02 XX Last administered on 06/19/17 02 :18; Admin Dose 1 EA; Start 06/15/17 at 02:00 Miscellaneous Information 1 ea NOTE XX ; Start 06/14/17 at 06:00 Glucose (Glutose) 15 gm Q15M PRN PO DECREASED GLUCOSE; Start 06/14/17 at 06:00 Glucose (Glutose) 22.5 gm Q15M PRN PO DECREASED GLUCOSE; Start 06/14/17 at 06: 00 Dextrose (D50w Syringe) 25 ml Q15M PRN IV DECREASED GLUCOSE Last administered on 06/17/17 04:41; Admin Dose 25 ML; Start 06/14/17 at 06:00 Dextrose (D50w Syringe) 50 ml Q15M PRN IV DECREASED GLUCOSE; Start 06/14/17 at 06:00 Glucagon (Glucagen) 1 mg Q15M PRN IM DECREASED GLUCOSE; Start 06/14/17 at 06: 00 Glucose 15 gm 15 gm Q15M PRN BUCCAL DECREASED GLUCOSE; Start 06/14/17 at 06:00 Diltiazem HCl (Cardizem-D5W 125 Mg/125 ml Drip) 125 ml @ 0 mls/hr TITRATE IV Last administered on 06/14/17 21:55; Admin Dose 5 MLS/HR; Start 06/14/17 at 15:00 Sertraline HCl 50 mg 50 mg HS PO Last administered on 06/18/17 20:32; Admin Dose 50 MG; Start 06/15/17 at 21:00 Norepinephrine 250 ml @ 1.875 mls/ hr TITRATE IV Last administered on 00:34; Admin Dose 18.75 MLS/HR; Start 06/16/17 at 10:30 Dopamine HCl/ Dextrose 250 ml @ 5.325 mls/ hr TITRATE IV ; Start 06/16/17 at 11:00 Diltiazem HCl (Cardizem) 30 mg Q8 GTB Last administered on 06/18/17 22:54; Admin Dose 30 MG; Start 06/16/17 at 14:00 Enoxaparin Sodium (Lovenox) 60 mg DAILY SC Last administered on 06/19/17 08: 04; Admin Dose 60 MG; Start 06/17/17 at 09:00 IV Flush (NS 10 ml) 10 ml PRN PRN IV IV PROTOCOL; Start 06/16/17 at 14:00 Haloperidol (Haldol) 1 mg Q12 PRN IV agitation Last administered on 06/16/17 21:56; Admin Dose 1 MG; Start 06/16/17 at 20:30 Insulin Aspart NOVOLOG *MILD* ALGORI... Q4 SC Last administered on 06/19/17 08:10; Admin Dose 2 UNIT; Start 06/17/17 at 01:00 Propofol 100 ml @ 2.13 mls/hr Q12H IV Last administered on 06/19/17 05:49; Admin Dose 3.408 MLS/HR; Start 06/17/17 at 00:00 Midazolam HCl 50 ml @ 1 mls/hr TITRATE IV Last administered on 06/17/17 04:29 ; Admin Dose 10 MLS/HR; Start 06/17/17 at 00:30 Dextrose/Sodium Chloride 1,000 ml @ 80 mls/hr [id number] IV Last administered on 06/19/17 03:57; Admin Dose 80 MLS/HR; Start 06/17/17 at 09:00 Levofloxacin/ Dextrose (Levaquin 500mg/ D5W 100 ml (Pmx)) 100 ml @ 100 mls/hr Q48H IVPB Last administered on 06/18/17 09:11; Admin Dose 100 MLS/HR; Start 06/18/17 at 09:00 Hydrocortisone (Solu-Cortef) 40 mg DAILY IV ; Start 06/19/17 at 09:00; Stop at 09:00 Hydrocortisone (Solu-Cortef) 40 mg ONCE ONCE IV ; Start 06/19/17 at 08:30; Stop 06/19/17 at 08:31; Status NEVILLE GLEZ MD Jun 19, 2017 08:42
[2017-06-19] MEDS ORDERED: HYDROCORTISONE 100 MG INJ IV SCH ×2 (09:00)
--- NOTE | 2017-06-19 09:10 | PN ---
DATE: 06/19/2017 SUBJECTIVE: Patient denies any pain or other complaints OBJECTIVE: VITAL SIGNS: Temperature 97.6, pulse of 63, respirations 14 on mechanical ventilation, blood pressu re 149/80, oxygen saturation 100% on mechanical ventilation, FIO2 of 30%. INS AND OUTS: Total intake 3162, output 1140. GENERAL: Well-developed, well-nourished female in no acute distress, lying in bed on ventilator. T ongue moderate edema. CHEST: Decreased breath sounds bilateral bases, otherwise clear. HEART: Irregular. ABDOMEN: Soft, nontender. Decreased bowel sounds. EXTREMITIES: No cyanosis, clubbing. Trace edema. NEUROLOGIC: The patient is alert and able to answer simple yes/no questions, otherwise nonfocal. LABORATORY DATA: White blood cell count 11.6, hemoglobin of 9.7, hematocrit of 29.4, platelets of 2 06. Sodium 137, potassium 4.2, chloride 106, bicarbonate 22, BUN of 46, creatinine 2.05, blood suga r 209, calcium 8.3. Magnesium of 2.2, phosphorus 3.2, AST 45, ALT of 56. Albumin 3.0 ASSESSMENT AND PLAN: 1. Acute respiratory failure/hypercapnia. Patient remains stable on mechanical ventilation. Will attempt to remove ventilator today as patient's tongue edema will add to potential problems for quoc milo and breathing. We will continue with possible weaning trials today per Dr. Martinez and routine pulmonary toilet. 2. Acute on chronic kidney disease. The patient with better urine output today and improved creati nine will continue with current measures and monitor her kidney function. 3. Atrial fibrillation remains controlled on current medications and blood pressure remains stable off pressors. 4. Coronary artery disease/hypertension remains stable. Continue with current medications as tavia donahue is no longer on pressure support. 5. Diabetes. This is worse due to patient being on tube feeds and received the hydrocortisone last night. Will add Lantus and continue with sliding scale. 6. Tongue edema. Doubt angioedema, probably related to trauma. Will give extra dose of hydrocorti sone and see if we get some improvement in the tongue edema, so that extubation will be possible. 7. Urinary tract infection. Will continue with Levaquin. Dictated By: MORGAN SNOW MD SR/NTS Conf#: [id number] [facility]#: [id number]
--- NOTE | 2017-06-19 11:11 | CONS ---
Date/Time of Note Date/Time of Note DATE: 06/19/17 TIME: 11:09 Consult Date/Type/Reason Admit Date/Time Jun 14, 2017 at 09:27 Type of Consultation: Pulmonary Ordering Provider: SARAH VINCENT Subjective Patient remains intubated sedated on mechanical ventilation. Opens eyes but not following commands off sedation. Significant tongue swelling protruding out of the mouth. Objective Vital Signs Date Time Temp Pulse Resp B/P Pulse Ox O2 Delivery O2 Flow Rate FiO2 06/19/17 11:00 101 16 100 30 06/19/17 08:00 98.9 167/98 Mechanical Ventilator 06/16/17 08:00 2.0 Intake and Output 06/18/17 06/18/17 06/19/17 14:59 22:59 06:59 Intake Total 1061.250 ml 1000.448 ml 1100.682 ml Output Total 250 ml 430 ml 460 ml Balance 811.250 ml 570.448 ml 640.682 ml Exam PHYSICAL EXAMINATION: GENERAL: Elderly-appearing intubated sedation held this morning. Patient still somnolent. Tongue protruding. VITAL SIGNS: NECK: Supple. No JVD or lymphadenopathy. CARDIAC: S1, S2, no added sounds or murmurs. CHEST: Diminished air entry both lung bases. ABDOMEN: Soft, nontender. No guarding or rebound. EXTREMITIES: No cyanosis, clubbing, 1+ edema. NEUROLOGIC: Generalized weakness. Results/Medications Result Diagram: 06/19/17 0400 06/19/17 0400 Results 24 hrs Laboratory Tests Test 06/18/17 12:58 06/18/17 17:14 06/18/17 20:31 06/19/17 01:12 Bedside Glucose 172 143 115 151 Test 06/19/17 02:16 06/19/17 04:00 06/19/17 05:17 06/19/17 07:00 Bedside Glucose 148 209 White Blood Count 11.6 #H Red Blood Count 3.22 L Hemoglobin 9.7 L Hematocrit 29.4 L Mean Corpuscular Volume 91.3 Mean Corpuscular Hemoglobin 30.1 Mean Corpuscular Hemoglobin Concent 33.0 Red Cell Distribution Width 14.5 Platelet Count 206 # Mean Platelet Volume 10.9 H Neutrophils % 91.6 H Lymphocytes % 4.5 L Monocytes % 3.2 Eosinophils % 0.0 Basophils % 0.0 Nucleated Red Blood Cells % 0.0 Neutrophils # 10.7 H Lymphocytes # 0.5 L Monocytes # 0.4 Eosinophils # 0.0 Basophils # 0.0 Nucleated Red Blood Cells # 0.0 Sodium Level 137 Potassium Level 4.2 Chloride Level 106 Carbon Dioxide Level 22 Anion Gap 13 Blood Urea Nitrogen 46 #H Creatinine 2.05 H Glucose Level 181 Calcium Level 8.3 L Phosphorus Level 3.2 Magnesium Level 2.2 Total Bilirubin 0.1 L Direct Bilirubin 0.00 Indirect Bilirubin 0.1 Aspartate Amino Transf (AST/SGOT) 45 Alanine Aminotransferase (ALT/SGPT) 56 Alkaline Phosphatase 34 L Total Protein 5.7 L Albumin 3.0 L Globulin 2.70 Albumin/Globulin Ratio 1.11 Blood Gas Specimen Source Blood arterial Arterial Blood Date Drawn 06/19/2017 7:30:42 AM Arterial Blood pH (Temp corrected) 7.375 Arterial Blood pCO2 (Temp correct) 41.0 Arterial Blood pO2 (Temp corrected) 204.6 H Arterial Blood HCO3 23.4 Arterial Blood Base Excess -1.6 Arterial Blood Oxygen Saturation 99.1 Carlton Test ACCEPTAB Arterial Blood Gas Puncture Site Right Radial Arterial Blood Carboxyhemoglobin 0.3 Arterial Blood Methemoglobin 0.1 Oxyhemoglobin Percent 98.7 Total Hemoglobin 10.9 L Blood Gas Temperature 37.0 Blood Gas Respiration Rate 14.0 Blood Gas Actual Respiration Rate 14 Blood Gas Modality VENT - AC FiO2 30.0 Blood Gas Tidal Volume 500.0 Blood Gas Low PEEP Setting 5.0 Blood Gas Critical Value Read Back K TAN RN Blood Gas Notified Whom JLD Blood Gas Notified Time 06/19/2017 8:17:58 AM Medications Current Medications Ondansetron HCl (Zofran Inj) 4 mg Q6H PRN IV NAUSEA AND/OR VOMITING Last administered on 06/16/17t 00:28; Admin Dose 4 MG; Start 06/13/17 at 15:30 Acetaminophen (Tylenol Tab) 650 mg Q6H PRN PO PAIN LEVEL 1-3 OR FEVER; Start 06/13/17 at 15:30 Docusate Sodium (Colace) 100 mg Q12H PRN PO CONSTIPATION; Start 06/13/17 at 15 :30 Magnesium Hydroxide (Milk Of Mag) 30 ml DAILY PRN PO CONSTIPATION; Start 06/13 at 15:30 Hydralazine HCl (Apresoline) 10 mg Q6H PRN IV ELEVATED BLOOD PRESSURE Last administered on 06/14/17 00:02; Admin Dose 10 MG; Start 06/13/17 at 15:30 Nitroglycerin (Nitroglycerin (Sl Tab) 0.4 Mg) 1 tab Q5M PRN SL ANGINA; Start 06/13/17 at 15:30 Aspirin (Aspirin) 325 mg DAILY PO Last administered on 06/19/17 08:02; Admin Dose 325 MG; Start 06/14/17 at 09:00 Atorvastatin Calcium (Lipitor) 10 mg HS PO Last administered on 06/16/17 21: 47; Admin Dose 10 MG; Start 06/13/17 at 21:00; Status Future Hold Levothyroxine Sodium (Synthroid) 100 mcg DAILY PO Last administered on 08:02; Admin Dose 100 MCG; Start 06/14/17 at 09:00 Montelukast Sodium (Singulair) 10 mg QHS PO Last administered on 06/18/17 20: 32; Admin Dose 10 MG; Start 06/13/17 at 21:00 Ranitidine HCl (Zantac) 150 mg HS PO Last administered on 06/18/17 20:32; Admin Dose 150 MG; Start 06/13/17 at 21:00 Metoprolol Tartrate (Lopressor) 25 mg BID PO Last administered on 06/19/17 08 :02; Admin Dose 25 MG; Start 06/14/17 at 05:30 Insulin Glargine (Lantus) 10 unit DAILY@20 SC ; Start 06/14/17 at 20:00; Status Future Hold Diagnostic Test (Pha) (Accu-Chek) 1 ea 02 XX Last administered on 06/19/17 02 :18; Admin Dose 1 EA; Start 06/15/17 at 02:00 Miscellaneous Information 1 ea NOTE XX ; Start 06/14/17 at 06:00 Glucose (Glutose) 15 gm Q15M PRN PO DECREASED GLUCOSE; Start 06/14/17 at 06:00 Glucose (Glutose) 22.5 gm Q15M PRN PO DECREASED GLUCOSE; Start 06/14/17 at 06: 00 Dextrose (D50w Syringe) 25 ml Q15M PRN IV DECREASED GLUCOSE Last administered on 06/17/17 04:41; Admin Dose 25 ML; Start 06/14/17 at 06:00 Dextrose (D50w Syringe) 50 ml Q15M PRN IV DECREASED GLUCOSE; Start 06/14/17 at 06:00 Glucagon (Glucagen) 1 mg Q15M PRN IM DECREASED GLUCOSE; Start 06/14/17 at 06: 00 Glucose 15 gm 15 gm Q15M PRN BUCCAL DECREASED GLUCOSE; Start 06/14/17 at 06:00 Diltiazem HCl (Cardizem-D5W 125 Mg/125 ml Drip) 125 ml @ 0 mls/hr TITRATE IV Last administered on 06/14/17 21:55; Admin Dose 5 MLS/HR; Start 06/14/17 at 15:00 Sertraline HCl 50 mg 50 mg HS PO Last administered on 06/18/17 20:32; Admin Dose 50 MG; Start 06/15/17 at 21:00 Norepinephrine 250 ml @ 1.875 mls/ hr TITRATE IV Last administered on 00:34; Admin Dose 18.75 MLS/HR; Start 06/16/17 at 10:30 Dopamine HCl/ Dextrose 250 ml @ 5.325 mls/ hr TITRATE IV ; Start 06/16/17 at 11:00 Diltiazem HCl (Cardizem) 30 mg Q8 GTB Last administered on 06/18/17 22:54; Admin Dose 30 MG; Start 06/16/17 at 14:00 Enoxaparin Sodium (Lovenox) 60 mg DAILY SC Last administered on 06/19/17 08: 04; Admin Dose 60 MG; Start 06/17/17 at 09:00 IV Flush (NS 10 ml) 10 ml PRN PRN IV IV PROTOCOL; Start 06/16/17 at 14:00 Haloperidol (Haldol) 1 mg Q12 PRN IV agitation Last administered on 06/16/17 21:56; Admin Dose 1 MG; Start 06/16/17 at 20:30 Insulin Aspart NOVOLOG *MILD* ALGORI... Q4 SC Last administered on 06/19/17 08:10; Admin Dose 2 UNIT; Start 06/17/17 at 01:00 Propofol 100 ml @ 2.13 mls/hr Q12H IV Last administered on 06/19/17 05:49; Admin Dose 3.408 MLS/HR; Start 06/17/17 at 00:00 Midazolam HCl 50 ml @ 1 mls/hr TITRATE IV Last administered on 06/17/17 04:29 ; Admin Dose 10 MLS/HR; Start 06/17/17 at 00:30 Dextrose/Sodium Chloride 1,000 ml @ 60 mls/hr [id number] IV Last administered on 06/19/17 03:57; Admin Dose 80 MLS/HR; Start 06/17/17 at 09:00 Levofloxacin/ Dextrose (Levaquin 500mg/ D5W 100 ml (Pmx)) 100 ml @ 100 mls/hr Q48H IVPB Last administered on 06/18/17 09:11; Admin Dose 100 MLS/HR; Start 06/18/17 at 09:00 Hydrocortisone (Solu-Cortef) 40 mg DAILY IV ; Start 06/19/17 at 21:00; Stop at 09:00 Hydrocortisone (Solu-Cortef) 40 mg ONCE IV Last administered on 06/19/17 10: 21; Admin Dose 40 MG; Start 06/19/17 at 09:00; Stop 06/19/17 at 13:00 Assessment/Plan Chief Complaint/Hosp Course IMPRESSION: 1. Acute hypercapnic respiratory failure, now intubated on mechanical ventilation. Chest x-ray demonstrates a moderate to large right pleural effusion. Status post thoracentesis. Pleural fluid appears transudative. Cultures and cytology pending. Continue mechanical ventilation. No stable for extubation yet given possibility of airway obstruction. 2. History of hypertension. 3. Atrial fibrillation with rapid ventricular rate. Currently rate controlled. 4. Diabetes mellitus. 5. Status post shock. 6. Acute renal failure. Likely ATN injury. Renal function appears to be stabilizing. Plan 1. Continued mechanical ventilation, CPAP trial when patient more alert and decreased in edema. Agree with steroids. 2. Vasopressors as needed to keep MAP > 65 3. Hold sedation if tolerated. 4. Deep venous thrombosis and gastrointestinal prophylaxis. 5. Right lung thoracentesis with pleural fluid studies pending. 6. Start tube feeding. 7. Renal recommendations Prognosis remains guarded. Problems: YAZMIN VARGAS MD, [facility] Jun 19, 2017 11:10
--- NOTE | 2017-06-19 12:23 | CONS ---
Date/Time of Note Date/Time of Note DATE: 06/19/17 TIME: 12:21 Assessment/Plan Assessment/Plan Chief Complaint/Hosp Course IMP: 1.Hypotension-improved off of pressors/NL EF by echo this admit 2. AF with RVR-overall improved HR 3. Renal failure 4. Hypercarbic resp failure s/p intubation 5. Hypothyroid 6. Renal failure-ongoing Recc: -Tele -serial ecg's -Follow volume status closely -wean towards extubation as possible -Continue lovenox QD -Follow HR/BP/volume status closely -Continue BB and follow HR closely -Possible need to start additional anti-hypertensives -Dose lasix Problems: Consultation Date/Type/Reason Admit Date/Time Jun 14, 2017 at 09:27 Initial Consult Date 06/15/17 Type of Consultation: cardiology Reason for Consultation AF Referring Provider: SARAH VINCENT Exam/Review of Systems Vital Signs Vitals Vital Signs Date Time Temp Pulse Resp B/P Pulse Ox O2 Delivery O2 Flow Rate FiO2 06/19/17 12:00 65 06/19/17 11:00 16 100 30 06/19/17 08:00 98.9 167/98 Mechanical Ventilator 06/16/17 08:00 2.0 Intake and Output 06/18/17 06/18/17 06/19/17 15:00 23:00 07:00 Intake Total 1143.380 ml 1103.440 ml 977.690 ml Output Total 250 ml 455 ml 400 ml Balance 893.380 ml 648.440 ml 577.690 ml Exam Review of Systems: CONSTITUTIONAL: No fevers, chills. PULMONARY: intubated CARDIOVASCULAR: No obvious chest pain/palpitations GASTROINTESTINAL: No nausea/vomiting. GENITOURINARY: No hematuria/dysuria. MUSCULOSKELETAL: No myagias/arthalgias. PSYCHIATRIC: The patient denies depression. NEUROLOGIC: No weakness Constitutional: alert Psych: no complaints Head: normocephalic ENMT: mucosa pink and moist Neck: jvd (9 cm water), supple Respiratory: diminished breath sounds (at bases/B) Cardiovascular: irregular rhythm Gastrointestinal: non-tender, soft Musculoskeletal: muscle tone (normal) Extremities: edema (trace/B) Neurological: other (No focal deficits) Results Result Diagram: 06/19/17 0400 06/19/17 0400 Results 24 hrs Laboratory Tests Test 06/18/17 12:58 06/18/17 17:14 06/18/17 20:31 06/19/17 01:12 Bedside Glucose 172 143 115 151 Test 06/19/17 02:16 06/19/17 04:00 06/19/17 05:17 06/19/17 07:00 Bedside Glucose 148 209 White Blood Count 11.6 #H Red Blood Count 3.22 L Hemoglobin 9.7 L Hematocrit 29.4 L Mean Corpuscular Volume 91.3 Mean Corpuscular Hemoglobin 30.1 Mean Corpuscular Hemoglobin Concent 33.0 Red Cell Distribution Width 14.5 Platelet Count 206 # Mean Platelet Volume 10.9 H Neutrophils % 91.6 H Lymphocytes % 4.5 L Monocytes % 3.2 Eosinophils % 0.0 Basophils % 0.0 Nucleated Red Blood Cells % 0.0 Neutrophils # 10.7 H Lymphocytes # 0.5 L Monocytes # 0.4 Eosinophils # 0.0 Basophils # 0.0 Nucleated Red Blood Cells # 0.0 Sodium Level 137 Potassium Level 4.2 Chloride Level 106 Carbon Dioxide Level 22 Anion Gap 13 Blood Urea Nitrogen 46 #H Creatinine 2.05 H Glucose Level 181 Calcium Level 8.3 L Phosphorus Level 3.2 Magnesium Level 2.2 Total Bilirubin 0.1 L Direct Bilirubin 0.00 Indirect Bilirubin 0.1 Aspartate Amino Transf (AST/SGOT) 45 Alanine Aminotransferase (ALT/SGPT) 56 Alkaline Phosphatase 34 L Total Protein 5.7 L Albumin 3.0 L Globulin 2.70 Albumin/Globulin Ratio 1.11 Blood Gas Specimen Source Blood arterial Arterial Blood Date Drawn 06/19/2017 7:30:42 AM Arterial Blood pH (Temp corrected) 7.375 Arterial Blood pCO2 (Temp correct) 41.0 Arterial Blood pO2 (Temp corrected) 204.6 H Arterial Blood HCO3 23.4 Arterial Blood Base Excess -1.6 Arterial Blood Oxygen Saturation 99.1 Carlton Test ACCEPTAB Arterial Blood Gas Puncture Site Right Radial Arterial Blood Carboxyhemoglobin 0.3 Arterial Blood Methemoglobin 0.1 Oxyhemoglobin Percent 98.7 Total Hemoglobin 10.9 L Blood Gas Temperature 37.0 Blood Gas Respiration Rate 14.0 Blood Gas Actual Respiration Rate 14 Blood Gas Modality VENT - AC FiO2 30.0 Blood Gas Tidal Volume 500.0 Blood Gas Low PEEP Setting 5.0 Blood Gas Critical Value Read Back K FARLESS RN Blood Gas Notified Whom JLD Blood Gas Notified Time 06/19/2017 8:17:58 AM Test 06/19/17 08:00 Bedside Glucose 203 Medications Medications Current Medications Ondansetron HCl (Zofran Inj) 4 mg Q6H PRN IV NAUSEA AND/OR VOMITING Last administered on 06/16/17 00:28; Admin Dose 4 MG; Start 06/13/17 at 15:30 Acetaminophen (Tylenol Tab) 650 mg Q6H PRN PO PAIN LEVEL 1-3 OR FEVER; Start 06/13/17 at 15:30 Docusate Sodium (Colace) 100 mg Q12H PRN PO CONSTIPATION; Start 06/13/17 at 15 :30 Magnesium Hydroxide (Milk Of Mag) 30 ml DAILY PRN PO CONSTIPATION; Start 06/13 at 15:30 Hydralazine HCl (Apresoline) 10 mg Q6H PRN IV ELEVATED BLOOD PRESSURE Last administered on 06/14/17 00:02; Admin Dose 10 MG; Start 06/13/17 at 15:30 Nitroglycerin (Nitroglycerin (Sl Tab) 0.4 Mg) 1 tab Q5M PRN SL ANGINA; Start 06/13/17 at 15:30 Aspirin (Aspirin) 325 mg DAILY PO Last administered on 06/19/17 08:02; Admin Dose 325 MG; Start 06/14/17 at 09:00 Atorvastatin Calcium (Lipitor) 10 mg HS PO Last administered on 06/16/17 21: 47; Admin Dose 10 MG; Start 06/13/17 at 21:00; Status Future Hold Levothyroxine Sodium (Synthroid) 100 mcg DAILY PO Last administered on 08:02; Admin Dose 100 MCG; Start 06/14/17 at 09:00 Montelukast Sodium (Singulair) 10 mg QHS PO Last administered on 06/18/17 20: 32; Admin Dose 10 MG; Start 06/13/17 at 21:00 Ranitidine HCl (Zantac) 150 mg HS PO Last administered on 06/18/17 20:32; Admin Dose 150 MG; Start 06/13/17 at 21:00 Metoprolol Tartrate (Lopressor) 25 mg BID PO Last administered on 06/19/17 08 :02; Admin Dose 25 MG; Start 06/14/17 at 05:30 Insulin Glargine (Lantus) 10 unit DAILY@20 SC ; Start 06/14/17 at 20:00; Status Future Hold Diagnostic Test (Pha) (Accu-Chek) 1 ea 02 XX Last administered on 06/19/17 02 :18; Admin Dose 1 EA; Start 06/15/17 at 02:00 Miscellaneous Information 1 ea NOTE XX ; Start 06/14/17 at 06:00 Glucose (Glutose) 15 gm Q15M PRN PO DECREASED GLUCOSE; Start 06/14/17 at 06:00 Glucose (Glutose) 22.5 gm Q15M PRN PO DECREASED GLUCOSE; Start 06/14/17 at 06: 00 Dextrose (D50w Syringe) 25 ml Q15M PRN IV DECREASED GLUCOSE Last administered on 06/17/17 04:41; Admin Dose 25 ML; Start 06/14/17 at 06:00 Dextrose (D50w Syringe) 50 ml Q15M PRN IV DECREASED GLUCOSE; Start 06/14/17 at 06:00 Glucagon (Glucagen) 1 mg Q15M PRN IM DECREASED GLUCOSE; Start 06/14/17 at 06: 00 Glucose 15 gm 15 gm Q15M PRN BUCCAL DECREASED GLUCOSE; Start 06/14/17 at 06:00 Diltiazem HCl (Cardizem-D5W 125 Mg/125 ml Drip) 125 ml @ 0 mls/hr TITRATE IV Last administered on 06/14/17 21:55; Admin Dose 5 MLS/HR; Start 06/14/17 at 15:00 Sertraline HCl 50 mg 50 mg HS PO Last administered on 06/18/17 20:32; Admin Dose 50 MG; Start 06/15/17 at 21:00 Norepinephrine 250 ml @ 1.875 mls/ hr TITRATE IV Last administered on 00:34; Admin Dose 18.75 MLS/HR; Start 06/16/17 at 10:30 Dopamine HCl/ Dextrose 250 ml @ 5.325 mls/ hr TITRATE IV ; Start 06/16/17 at 11:00 Diltiazem HCl (Cardizem) 30 mg Q8 GTB Last administered on 06/18/17 22:54; Admin Dose 30 MG; Start 06/16/17 at 14:00 Enoxaparin Sodium (Lovenox) 60 mg DAILY SC Last administered on 06/19/17 08: 04; Admin Dose 60 MG; Start 06/17/17 at 09:00 IV Flush (NS 10 ml) 10 ml PRN PRN IV IV PROTOCOL; Start 06/16/17 at 14:00 Haloperidol (Haldol) 1 mg Q12 PRN IV agitation Last administered on 06/16/17 21:56; Admin Dose 1 MG; Start 06/16/17 at 20:30 Insulin Aspart NOVOLOG *MILD* ALGORI... Q4 SC Last administered on 06/19/17 08:10; Admin Dose 2 UNIT; Start 06/17/17 at 01:00 Propofol 100 ml @ 2.13 mls/hr Q12H IV Last administered on 06/19/17 05:49; Admin Dose 3.408 MLS/HR; Start 06/17/17 at 00:00 Midazolam HCl 50 ml @ 1 mls/hr TITRATE IV Last administered on 06/17/17 04:29 ; Admin Dose 10 MLS/HR; Start 06/17/17 at 00:30 Dextrose/Sodium Chloride 1,000 ml @ 60 mls/hr [id number] IV Last administered on 06/19/17 03:57; Admin Dose 80 MLS/HR; Start 06/17/17 at 09:00 Levofloxacin/ Dextrose (Levaquin 500mg/ D5W 100 ml (Pmx)) 100 ml @ 100 mls/hr Q48H IVPB Last administered on 06/18/17 09:11; Admin Dose 100 MLS/HR; Start 06/18/17 at 09:00 Hydrocortisone (Solu-Cortef) 40 mg DAILY IV ; Start 06/19/17 at 21:00; Stop at 09:00 Hydrocortisone (Solu-Cortef) 40 mg ONCE IV Last administered on 06/19/17 10: 21; Admin Dose 40 MG; Start 06/19/17 at 09:00; Stop 06/19/17 at 13:00 WEN GOFF 16, 2017 12:23
[2017-06-19] MEDS ORDERED: FUROSEMIDE 20 MG INJ IV ONE (12:30)
[2017-06-19] MEDS: hydrALAzine 20 MG INJ IV PRN (13:50)
[2017-06-19] MEDS: DILTIAZEM-D5W 125MG/125ML DRIP 125 ML IV SCH (16:59)
--- NOTE | 2017-06-19 20:06 | RADRPT ---
Echocardiogram Report Patient Name: JOVITA SORENSEN Gender: Female Date: 1935 Study Date: 19-Jun-2017 Grade Checker: Wilian Sanchez [facility] Location: 102-A Ref. Physician: WEN GARCÍA Quality: Adequate Procedures: Transthoracic echocardiogram with complete 2D, M-Mode, and doppler examination. Indications: Congestive Heart Failure. 2D/M Mode Doppler Measurement Value Normal Ranges Measurement Value Normal Ranges LVIDd 2D 3.9 3.5 - 5.6 cm AV Peak Oziel 1.5 m/sec LVIDs 2D 2.5 2.1 - 4.1 cm AV Peak PG 8.9 mmHg LVPWd 2D 1.3 0.6 - 1.1 cm LVOT Peak Oziel 1.3 m/sec IVSd 2D 1.3 0.6 - 1.1 cm LVOT Peak PG 7.1 mmHg AoR Diam 2D 2.3 2.0 - 3.7 cm TR Peak Oziel 3.1 m/sec EDV 2D 66.6 cm3 TR Peak PG 39.0 mmHg ESV 2D 15.5 cm3 RVSP 54.0 mmHg LA Dimen 2D 2.9 2.3 - 4.0 cm Findings Left Ventricle: Normal left ventricular systolic function. Normal left ventricular cavity size. Mild concentric left ventricular hypertrophy. Ejection fraction is visually estimated at 60 %. Abnormal Diastolic Function. Right Ventricle: Normal right ventricular size. Normal right ventricular systolic function. Left Atrium: The left atrium is normal in size. Right Atrium: The right atrium is normal in size. Mitral Valve: Mild mitral leaflet calcification. Mild mitral annular calcification. Mild mitral valve regurgitation. Aortic Valve: No significant aortic stenosis. Aortic cusps appear mildly calcified. Trace aortic valve regurgitation. Tricuspid Valve: Normal appearance of the tricuspid valve. Estimated peak PA systolic pressure 54 mmHg. There is mild tricuspid regurgitation. Pulmonic Valve: Pulmonic valve not well visualized. There is trace pulmonic regurgitation. Pericardium: Normal pericardium with no significant pericardial effusion. Left pleural effusion seen. Aorta: Normal aortic root. IVC: Dilated inferior vena cava with poor inspiratory collapse consistent with elevated right atrial pressures. Conclusions 1.Normal left ventricular systolic function. Normal left ventricular cavity size. Mild concentric left ventricular hypertrophy. Ejection fraction is visually estimated at 60 %. Abnormal Diastolic Function. 2.Mild mitral leaflet calcification. Mild mitral annular calcification. Mild mitral valve regurgitation. 3.No significant aortic stenosis. Aortic cusps appear mildly calcified. Trace aortic valve regurgitation. 4.Normal appearance of the tricuspid valve. Estimated peak PA systolic pressure 54 mmHg. There is mild tricuspid regurgitation. 5.Pulmonic valve not well visualized. There is trace pulmonic regurgitation. Electronically Signed By: Wen García 19-Jun-2017 20:05:35 -0800 Patient Name: JOVITA SORENSEN Study Date: 19-Jun-2017 [id number]
[2017-06-19] MEDS: HYDROCORTISONE 100 MG INJ IV SCH (20:31)
[2017-06-19] MEDS: SERTRALINE 100 MG TAB PO SCH (20:32)
[2017-06-19] MEDS: RANITIDINE 150 MG TAB PO SCH (20:32)
[2017-06-19] MEDS: METOPROLOL 50 MG TAB PO SCH (20:32)
[2017-06-19] MEDS: MONTELUKAST 10 MG TAB PO SCH (20:32)
[2017-06-19] MEDS ORDERED: AMPICILLIN 250 MG CAP NGT SCH (22:00)
[2017-06-19] MEDS: AMPICILLIN NGT SCH (22:55)
[2017-06-20] VITALS (52 sets, daily range): BP systolic 134–187; BP diastolic 60–131; PULSE 60–118; RESP 14–31
[2017-06-20] MEDS: INSULIN ASPART [NOVOLOG] 3 ML PEN SC SCH ×6 (01:45→21:06)
[2017-06-20] MEDS: ACCU-CHEK XX SCH (01:46)
[2017-06-20] MEDS: PROPOFOL 100 ML IV SCH ×2 (05:03)
[2017-06-20] MEDS: AMPICILLIN NGT SCH ×3 (05:03→22:17)
[2017-06-20] MEDS: DILTIAZEM 60 MG TAB GTB SCH ×3 (05:18→22:16)
[2017-06-20 05:25] LABS: BASOPHILS % 0.1 % (0.0-2.0); HEMATOCRIT 27.2 % (37.0-47.0); HEMOGLOBIN 8.8 g/dl (12.0-16.0); LYMPHOCYTES # 0.7 10^3/ul (0.8-2.9); LYMPHOCYTES % 6.8 % (15.0-51.0); MEAN CORPUSCULAR HEMOGLOBIN 29.9 pg (29.0-33.0); MEAN CORPUSCULAR HGB CONC 32.4 g/dl (32.0-37.0); MEAN CORPUSCULAR VOLUME 92.5 fl (82.0-101.0); MEAN PLATELET VOLUME 10.5 fl (7.4-10.4); MONOCYTE # 0.6 10^3/ul (0.3-0.9); MONOCYTES % 5.3 % (0.0-11.0); NEUTROPHIL # 9.2 10^3/ul (1.6-7.5); NEUTROPHILS % 87.1 % (39.0-77.0); PLATELET COUNT 212 10^3/UL (140-415); RED BLOOD COUNT 2.94 10^6/ul (4.20-5.40); RED CELL DISTRIBUTION WIDTH 14.8 % (11.5-14.5); WHITE BLOOD COUNT 10.5 10^3/ul (4.8-10.8)
[2017-06-20 05:38] LABS: CALCIUM 8.9 mg/dl (8.4-10.2); CREATININE 1.75 mg/dl (0.44-1.00); POTASSIUM 4.3 mmol/L (3.5-5.1)
[2017-06-20 07:49] LABS: AADO2 Arterial 39.7 mmHg (7.0-24.0); Allen Test ACCEPTAB; Arterial Base Excess -1.8 mmol/L (-3.0-3); Arterial COHb 0.3 % (0.0-3.0); Arterial Fraction of Oxyhgb 97.9 % (93.0-99.0); Arterial HCO3 22.9 mmol/L (22.0-26.0); Arterial MetHb 0.1 % (0.0-1.5); Arterial Total Hemglobin 10.3 g/dl (12.0-18.0); MODE VENT - AC
--- NOTE | 2017-06-20 08:17 | RADRPT ---
AMENDMENT: 06/20/2017 8:20:17 AM Vinay Mix M.d COMPARISON: 06/19/2017 and additional priors PROCEDURE: XR Chest. CLINICAL INDICATION: Respiratory failure TECHNIQUE: Single frontal view of the chest. COMPARISON: and additional priors FINDINGS: Support lines and tubes: Endotracheal tube tip well positioned over the mid tracheal shadow. Enteri c tube tip passes below the diaphragm and below the field of view. Left PICC tip just beyond the ca voatrial junction. Cardiac/vascular structures: Normal cardiomediastinal silhouette. Aortic calcifications. Pulmonary: Bilateral perihilar interstitial opacities. Left basilar airspace opacity. Small left ple ural effusion. No evidence of pneumothorax. Osseous structures: Degenerate changes of the spine. Soft tissues: Normal IMPRESSION: 1. Stable position of PICC line and tubes. 2. Left basilar airspace opacity representing atelectasis or pneumonia. 3. Bilateral perihilar interstitial opacities may represent pulmonary edema or infection. 4. Small left pleural effusion. 5. Aortic atherosclerotic calcifications. RPTAT:AAJJ Physician Pebbles Date Time Electronically viewed and signed by Physician Pebbles on 06/20/2017 08:20 /
[2017-06-20] MEDS: LEVOTHYROXINE 100 MCG TAB PO SCH (08:52)
[2017-06-20] MEDS: ASPIRIN 325 MG TAB PO SCH (08:52)
[2017-06-20] MEDS: HYDROCORTISONE 100 MG INJ IV SCH (08:52)
[2017-06-20] MEDS: METOPROLOL 50 MG TAB PO SCH ×2 (08:53→20:55)
[2017-06-20] MEDS: ENOXAPARIN 60 MG/0.6 ML SYG SC SCH (08:54)
--- NOTE | 2017-06-20 08:59 | CONS ---
Date/Time of Note Date/Time of Note DATE: 06/20/17 TIME: 08:52 Assessment/Plan Assessment/Plan Chief Complaint/Hosp Course IMP: 1.Hypotension-improved off of pressors/NL EF by echo this admit and now with HTN 2. AF with RVR-overall improved HR but still some rapid rates 3. Renal failure 4. Hypercarbic resp failure s/p intubation 5. Hypothyroid 6. Renal failure-ongoing Recc: -Tele -serial ecg's -Follow volume status closely -wean towards extubation as possible -Continue lovenox QD/asa -Follow HR/BP/volume status closely -Continue BB/CCB and follow HR closely with possible need to make further increase -Possible need to start additional anti-hypertensives and thus will add hydralazine -Dose lasix and follow volume status closely Problems: Consultation Date/Type/Reason Admit Date/Time Jun 14, 2017 at 09:27 Initial Consult Date 06/15/17 Type of Consultation: cardiology Reason for Consultation AF Referring Provider: SARAH VINCENT Exam/Review of Systems Vital Signs Vitals Vital Signs Date Time Temp Pulse Resp B/P Pulse Ox O2 Delivery O2 Flow Rate FiO2 06/20/17 07:15 106 14 99 30 06/20/17 07:00 161/77 06/20/17 06:00 Mechanical Ventilator 06/20/17 04:00 98.3 06/16/17 08:00 2.0 Intake and Output 06/19/17 06/19/17 06/20/17 15:00 23:00 07:00 Intake Total 774.48 ml 875.018 ml 884.282 ml Output Total 495 ml 1260 ml 470 ml Balance 279.48 ml -384.982 ml 414.282 ml Exam Review of Systems: CONSTITUTIONAL: No fevers, chills. PULMONARY: No sob CARDIOVASCULAR: No chest pain/palpitations GASTROINTESTINAL: No nausea/vomiting. GENITOURINARY: No hematuria/dysuria. MUSCULOSKELETAL: No myagias/arthalgias. PSYCHIATRIC: The patient denies depression. NEUROLOGIC: No weakness Constitutional: other (intubated) Psych: no complaints Head: normocephalic ENMT: intubated, mucosa pink and moist Neck: jvd (9 cm water), supple Respiratory: diminished breath sounds (at bases/B) Cardiovascular: regular rate and rhythm Gastrointestinal: non-tender, soft Musculoskeletal: muscle tone (normal) Extremities: edema (none) Neurological: other (No focal deficits) Results Result Diagram: 06/20/170 06/20/17 0400 Results 24 hrs Laboratory Tests Test 06/19/17 13:59 06/19/17 17:02 06/19/17 20:47 06/20/17 01:42 Bedside Glucose 172 234 H 180 199 Test 06/20/17 04:00 06/20/17 04:43 06/20/17 07:00 White Blood Count 10.5 Red Blood Count 2.94 L Hemoglobin 8.8 L Hematocrit 27.2 L Mean Corpuscular Volume 92.5 Mean Corpuscular Hemoglobin 29.9 Mean Corpuscular Hemoglobin Concent 32.4 Red Cell Distribution Width 14.8 H Platelet Count 212 Mean Platelet Volume 10.5 H Neutrophils % 87.1 H Lymphocytes % 6.8 L Monocytes % 5.3 Eosinophils % 0.0 Basophils % 0.1 Nucleated Red Blood Cells % 0.0 Neutrophils # 9.2 H Lymphocytes # 0.7 L Monocytes # 0.6 Eosinophils # 0.0 Basophils # 0.0 Nucleated Red Blood Cells # 0.0 Sodium Level 141 Potassium Level 4.3 Chloride Level 108 Carbon Dioxide Level 25 Anion Gap 12 Blood Urea Nitrogen 49 H Creatinine 1.75 H Glucose Level 199 Calcium Level 8.9 Magnesium Level 2.1 Bedside Glucose 200 Blood Gas Specimen Source Blood arterial Arterial Blood Date Drawn 06/20/2017 7:20:20 AM Arterial Blood pH (Temp corrected) 7.390 Arterial Blood pCO2 (Temp correct) 38.7 Arterial Blood pO2 (Temp corrected) 128.7 H Arterial Blood HCO3 22.9 Arterial Blood Base Excess -1.8 Arterial Blood Oxygen Saturation 98.3 Carlton Test ACCEPTAB Arterial Blood Gas Puncture Site Right Radial Arterial Blood Carboxyhemoglobin 0.3 Arterial Blood Methemoglobin 0.1 Blood Gas A-a O2 Differential 39.7 H Oxyhemoglobin Percent 97.9 Total Hemoglobin 10.3 L Blood Gas Temperature 37.0 Blood Gas Respiration Rate 14.0 Blood Gas Actual Respiration Rate 16 Blood Gas Modality VENT - AC FiO2 30.0 Blood Gas Tidal Volume 500.0 Blood Gas Low PEEP Setting 5.0 Blood Gas Notified Whom JLD Blood Gas Notified Time 06/20/2017 7:48:57 AM Medications Medications Current Medications Ondansetron HCl (Zofran Inj) 4 mg Q6H PRN IV NAUSEA AND/OR VOMITING Last administered on 06/16/17 00:28; Admin Dose 4 MG; Start 06/13/17 at 15:30 Acetaminophen (Tylenol Tab) 650 mg Q6H PRN PO PAIN LEVEL 1-3 OR FEVER; Start 06/13/17 at 15:30 Docusate Sodium (Colace) 100 mg Q12H PRN PO CONSTIPATION; Start 06/13/17 at 15 :30 Magnesium Hydroxide (Milk Of Mag) 30 ml DAILY PRN PO CONSTIPATION; Start 06/13 at 15:30 Hydralazine HCl (Apresoline) 10 mg Q6H PRN IV ELEVATED BLOOD PRESSURE Last administered on 06/19/17 13:50; Admin Dose 10 MG; Start 06/13/17 at 15:30 Nitroglycerin (Nitroglycerin (Sl Tab) 0.4 Mg) 1 tab Q5M PRN SL ANGINA; Start 06/13/17 at 15:30 Aspirin (Aspirin) 325 mg DAILY PO Last administered on 06/19/17 08:02; Admin Dose 325 MG; Start 06/14/17 at 09:00 Atorvastatin Calcium (Lipitor) 10 mg HS PO Last administered on 06/16/17 21: 47; Admin Dose 10 MG; Start 06/13/17 at 21:00; Status Future Hold Levothyroxine Sodium (Synthroid) 100 mcg DAILY PO Last administered on 08:02; Admin Dose 100 MCG; Start 06/14/17 at 09:00 Montelukast Sodium (Singulair) 10 mg QHS PO Last administered on 06/19/17 20: 32; Admin Dose 10 MG; Start 06/13/17 at 21:00 Ranitidine HCl (Zantac) 150 mg HS PO Last administered on 06/19/17 20:32; Admin Dose 150 MG; Start 06/13/17 at 21:00 Insulin Glargine (Lantus) 10 unit DAILY@20 SC ; Start 06/14/17 at 20:00; Status Future Hold Diagnostic Test (Pha) (Accu-Chek) 1 ea 02 XX Last administered on 06/19/17 02 :18; Admin Dose 1 EA; Start 06/15/17 at 02:00 Miscellaneous Information 1 ea NOTE XX ; Start 06/14/17 at 06:00 Glucose (Glutose) 15 gm Q15M PRN PO DECREASED GLUCOSE; Start 06/14/17 at 06:00 Glucose (Glutose) 22.5 gm Q15M PRN PO DECREASED GLUCOSE; Start 06/14/17 at 06: 00 Dextrose (D50w Syringe) 25 ml Q15M PRN IV DECREASED GLUCOSE Last administered on 06/17/17 04:41; Admin Dose 25 ML; Start 06/14/17 at 06:00 Dextrose (D50w Syringe) 50 ml Q15M PRN IV DECREASED GLUCOSE; Start 06/14/17 at 06:00 Glucagon (Glucagen) 1 mg Q15M PRN IM DECREASED GLUCOSE; Start 06/14/17 at 06: 00 Glucose 15 gm 15 gm Q15M PRN BUCCAL DECREASED GLUCOSE; Start 06/14/17 at 06:00 Diltiazem HCl (Cardizem-D5W 125 Mg/125 ml Drip) 125 ml @ 0 mls/hr TITRATE IV Last administered on 06/19/17 16:59; Admin Dose 5 MLS/HR; Start 06/14/17 at 15:00 Sertraline HCl 50 mg 50 mg HS PO Last administered on 06/19/17 20:32; Admin Dose 50 MG; Start 06/15/17 at 21:00 Norepinephrine 250 ml @ 1.875 mls/ hr TITRATE IV Last administered on 00:34; Admin Dose 18.75 MLS/HR; Start 06/16/17 at 10:30 Dopamine HCl/ Dextrose 250 ml @ 5.325 mls/ hr TITRATE IV ; Start 06/16/17 at 11:00 Diltiazem HCl (Cardizem) 30 mg Q8 GTB Last administered on 06/20/17 05:18; Admin Dose 30 MG; Start 06/16/17 at 14:00 Enoxaparin Sodium (Lovenox) 60 mg DAILY SC Last administered on 06/19/17 08: 04; Admin Dose 60 MG; Start 06/17/17 at 09:00 IV Flush (NS 10 ml) 10 ml PRN PRN IV IV PROTOCOL; Start 06/16/17 at 14:00 Haloperidol (Haldol) 1 mg Q12 PRN IV agitation Last administered on 06/16/17 21:56; Admin Dose 1 MG; Start 06/16/17 at 20:30 Insulin Aspart NOVOLOG *MILD* ALGORI... Q4 SC Last administered on 06/20/17 04:53; Admin Dose 2 UNIT; Start 06/17/17 at 01:00 Propofol 100 ml @ 2.13 mls/hr Q12H IV Last administered on 06/20/17 05:03; Admin Dose 2.982 MLS/HR; Start 06/17/17 at 00:00 Midazolam HCl 50 ml @ 1 mls/hr TITRATE IV Last administered on 06/17/17 04:29 ; Admin Dose 10 MLS/HR; Start 06/17/17 at 00:30 Dextrose/Sodium Chloride (D5-NS) 1,000 ml @ 60 mls/hr [id number] IV Last administered on 06/19/17 20:30; Admin Dose 60 MLS/HR; Start 06/17/17 at 09:00 Hydrocortisone (Solu-Cortef) 40 mg DAILY IV Last administered on 06/19/17 20: 31; Admin Dose 40 MG; Start 06/19/17 at 21:00; Stop 06/23/17 at 09:00 Ampicillin (Ampicillin Susp (Ped)) 250 mg Q8 NGT Last administered on 05:03; Admin Dose 250 MG; Start 06/19/17 at 22:00 Metoprolol Tartrate (Lopressor) 50 mg BID PO Last administered on 06/19/17 20 :32; Admin Dose 50 MG; Start 06/19/17 at 21:00 WEN GOFF Jun 20, 2017 08:59
[2017-06-20] MEDS ORDERED: FUROSEMIDE 20 MG INJ IV ONE (09:00)
[2017-06-20] MEDS: DEXTROSE 5%-0.9% NACL 1,000 ML IV SCH ×2 (09:00→23:59)
--- NOTE | 2017-06-20 09:16 | CONS ---
Date/Time of Note Date/Time of Note DATE: 06/20/17 TIME: 09:12 Assessment/Plan Assessment/Plan Chief Complaint/Hosp Course 1. Acute renal failure, her renal function is improved today and her urine output has increased. Her clinical course seems most consistent with acute tubular necrosis that is now in recovery phase . Her urine output has increased. She did receive several doses of diuretic yesterday. 2. Urinary tract infection on antibiotics 3. Atrial fibrillation 4. Hypertension 5. Anemia 6. Respiratory failure now ventilator dependent . Weening process started . Will decrease IV fluids. She is also now on tube feeding and tolerating well . I will sign off at this point and see again on request . Problems: Consultation Date/Type/Reason Admit Date/Time Jun 14, 2017 at 09:27 Type of Consultation: nephrology Referring Provider: SARAH VINCENT 24 HR Interval Summary Free Text/Dictation The patient is in the intensive care unit intubated on a ventilator. She does respond to verbal stimuli and follows commands. Subjective hx not possible: pt non-verbal Exam/Review of Systems Vital Signs Vitals Vital Signs Date Time Temp Pulse Resp B/P Pulse Ox O2 Delivery O2 Flow Rate FiO2 06/20/17 07:15 106 14 99 30 06/20/17 07:00 161/77 06/20/17 06:00 Mechanical Ventilator 06/20/17 04:00 98.3 06/16/17 08:00 2.0 Intake and Output 06/19/17 06/19/17 06/20/17 15:00 23:00 07:00 Intake Total 774.48 ml 875.018 ml 884.282 ml Output Total 495 ml 1260 ml 470 ml Balance 279.48 ml -384.982 ml 414.282 ml Exam Constitutional: non-verbal ENMT: intubated Respiratory: clear to auscultation, normal air movement Cardiovascular: edema, irregular rhythm Gastrointestinal: soft Results Result Diagram: 06/20/17 0400 06/20/17 0400 Results 24 hrs Laboratory Tests Test 06/19/17 13:59 06/19/17 17:02 06/19/17 20:47 06/20/17 01:42 Bedside Glucose 172 234 H 180 199 Test 06/20/17 04:00 06/20/17 04:43 06/20/17 07:00 White Blood Count 10.5 Red Blood Count 2.94 L Hemoglobin 8.8 L Hematocrit 27.2 L Mean Corpuscular Volume 92.5 Mean Corpuscular Hemoglobin 29.9 Mean Corpuscular Hemoglobin Concent 32.4 Red Cell Distribution Width 14.8 H Platelet Count 212 Mean Platelet Volume 10.5 H Neutrophils % 87.1 H Lymphocytes % 6.8 L Monocytes % 5.3 Eosinophils % 0.0 Basophils % 0.1 Nucleated Red Blood Cells % 0.0 Neutrophils # 9.2 H Lymphocytes # 0.7 L Monocytes # 0.6 Eosinophils # 0.0 Basophils # 0.0 Nucleated Red Blood Cells # 0.0 Sodium Level 141 Potassium Level 4.3 Chloride Level 108 Carbon Dioxide Level 25 Anion Gap 12 Blood Urea Nitrogen 49 H Creatinine 1.75 H Glucose Level 199 Calcium Level 8.9 Magnesium Level 2.1 Bedside Glucose 200 Blood Gas Specimen Source Blood arterial Arterial Blood Date Drawn 06/20/2017 7:20:20 AM Arterial Blood pH (Temp corrected) 7.390 Arterial Blood pCO2 (Temp correct) 38.7 Arterial Blood pO2 (Temp corrected) 128.7 H Arterial Blood HCO3 22.9 Arterial Blood Base Excess -1.8 Arterial Blood Oxygen Saturation 98.3 Carlton Test ACCEPTAB Arterial Blood Gas Puncture Site Right Radial Arterial Blood Carboxyhemoglobin 0.3 Arterial Blood Methemoglobin 0.1 Blood Gas A-a O2 Differential 39.7 H Oxyhemoglobin Percent 97.9 Total Hemoglobin 10.3 L Blood Gas Temperature 37.0 Blood Gas Respiration Rate 14.0 Blood Gas Actual Respiration Rate 16 Blood Gas Modality VENT - AC FiO2 30.0 Blood Gas Tidal Volume 500.0 Blood Gas Low PEEP Setting 5.0 Blood Gas Notified Whom JLD Blood Gas Notified Time 06/20/2017 7:48:57 AM Medications Medications Current Medications Ondansetron HCl (Zofran Inj) 4 mg Q6H PRN IV NAUSEA AND/OR VOMITING Last administered on 06/16/17t 00:28; Admin Dose 4 MG; Start 06/13/17 at 15:30 Acetaminophen (Tylenol Tab) 650 mg Q6H PRN PO PAIN LEVEL 1-3 OR FEVER; Start 06/13/17 at 15:30 Docusate Sodium (Colace) 100 mg Q12H PRN PO CONSTIPATION; Start 06/13/17 at 15 :30 Magnesium Hydroxide (Milk Of Mag) 30 ml DAILY PRN PO CONSTIPATION; Start 06/13 at 15:30 Hydralazine HCl (Apresoline) 10 mg Q6H PRN IV ELEVATED BLOOD PRESSURE Last administered on 06/19/17 13:50; Admin Dose 10 MG; Start 06/13/17 at 15:30 Nitroglycerin (Nitroglycerin (Sl Tab) 0.4 Mg) 1 tab Q5M PRN SL ANGINA; Start 06/13/17 at 15:30 Aspirin (Aspirin) 325 mg DAILY PO Last administered on 06/20/17 08:52; Admin Dose 325 MG; Start 06/14/17 at 09:00 Atorvastatin Calcium (Lipitor) 10 mg HS PO Last administered on 06/16/17 21: 47; Admin Dose 10 MG; Start 06/13/17 at 21:00; Status Future Hold Levothyroxine Sodium (Synthroid) 100 mcg DAILY PO Last administered on 08:52; Admin Dose 100 MCG; Start 06/14/17 at 09:00 Montelukast Sodium (Singulair) 10 mg QHS PO Last administered on 06/19/17 20: 32; Admin Dose 10 MG; Start 06/13/17 at 21:00 Ranitidine HCl (Zantac) 150 mg HS PO Last administered on 06/19/17 20:32; Admin Dose 150 MG; Start 06/13/17 at 21:00 Insulin Glargine (Lantus) 10 unit DAILY@20 SC ; Start 06/14/17 at 20:00; Status Future Hold Diagnostic Test (Pha) (Accu-Chek) 1 ea 02 XX Last administered on 06/19/17 02 :18; Admin Dose 1 EA; Start 06/15/17 at 02:00 Miscellaneous Information 1 ea NOTE XX ; Start 06/14/17 at 06:00 Glucose (Glutose) 15 gm Q15M PRN PO DECREASED GLUCOSE; Start 06/14/17 at 06:00 Glucose (Glutose) 22.5 gm Q15M PRN PO DECREASED GLUCOSE; Start 06/14/17 at 06: 00 Dextrose (D50w Syringe) 25 ml Q15M PRN IV DECREASED GLUCOSE Last administered on 06/17/17 04:41; Admin Dose 25 ML; Start 06/14/17 at 06:00 Dextrose (D50w Syringe) 50 ml Q15M PRN IV DECREASED GLUCOSE; Start 06/14/17 at 06:00 Glucagon (Glucagen) 1 mg Q15M PRN IM DECREASED GLUCOSE; Start 06/14/17 at 06: 00 Glucose 15 gm 15 gm Q15M PRN BUCCAL DECREASED GLUCOSE; Start 06/14/17 at 06:00 Diltiazem HCl (Cardizem-D5W 125 Mg/125 ml Drip) 125 ml @ 0 mls/hr TITRATE IV Last administered on 06/19/17 16:59; Admin Dose 5 MLS/HR; Start 06/14/17 at 15:00 Sertraline HCl 50 mg 50 mg HS PO Last administered on 06/19/17 20:32; Admin Dose 50 MG; Start 06/15/17 at 21:00 Norepinephrine 250 ml @ 1.875 mls/ hr TITRATE IV Last administered on 00:34; Admin Dose 18.75 MLS/HR; Start 06/16/17 at 10:30 Dopamine HCl/ Dextrose 250 ml @ 5.325 mls/ hr TITRATE IV ; Start 06/16/17 at 11:00 Diltiazem HCl (Cardizem) 30 mg Q8 GTB Last administered on 06/20/17 05:18; Admin Dose 30 MG; Start 06/16/17 at 14:00 Enoxaparin Sodium (Lovenox) 60 mg DAILY SC Last administered on 06/20/17 08: 54; Admin Dose 60 MG; Start 06/17/17 at 09:00 IV Flush (NS 10 ml) 10 ml PRN PRN IV IV PROTOCOL; Start 06/16/17 at 14:00 Haloperidol (Haldol) 1 mg Q12 PRN IV agitation Last administered on 06/16/17 21:56; Admin Dose 1 MG; Start 06/16/17 at 20:30 Insulin Aspart NOVOLOG *MILD* ALGORI... Q4 SC Last administered on 06/20/17 09:00; Admin Dose 1 UNIT; Start 06/17/17 at 01:00 Propofol 100 ml @ 2.13 mls/hr Q12H IV Last administered on 06/20/17 05:03; Admin Dose 2.982 MLS/HR; Start 06/17/17 at 00:00 Midazolam HCl 50 ml @ 1 mls/hr TITRATE IV Last administered on 06/17/17 04:29 ; Admin Dose 10 MLS/HR; Start 06/17/17 at 00:30 Dextrose/Sodium Chloride (D5-NS) 1,000 ml @ 60 mls/hr [id number] IV Last administered on 06/19/17 20:30; Admin Dose 60 MLS/HR; Start 06/17/17 at 09:00 Hydrocortisone (Solu-Cortef) 40 mg DAILY IV Last administered on 06/20/17 08: 52; Admin Dose 40 MG; Start 06/19/17 at 21:00; Stop 06/23/17 at 09:00 Ampicillin (Ampicillin Susp (Ped)) 250 mg Q8 NGT Last administered on 05:03; Admin Dose 250 MG; Start 06/19/17 at 22:00 Metoprolol Tartrate (Lopressor) 50 mg BID PO Last administered on 06/20/17 08 :53; Admin Dose 50 MG; Start 06/19/17 at 21:00 Hydralazine HCl (Apresoline) 25 mg Q8 PO ; Start 06/20/17 at 14:00 NEVILLE GARDUNO MD Jun 20, 2017 09:16
--- NOTE | 2017-06-20 09:30 | PN ---
DATE: 06/20/2017 SUBJECTIVE: The patient denies any pain or other problems. The patient is feeling better. OBJECTIVE: VITAL SIGNS: Temperature 98.3 axillary, pulse 88 to 106 and irregular, respiratory rate 14 on mecha nical ventilation, oxygen saturation 99% on 30% FiO2, blood pressure 161/77. GENERAL: Well-developed, well-nourished female in the hospital bed on mechanical ventilation. CHEST: Decreased breath sounds bilateral bases, otherwise clear. HEART: Tachycardic, irregular. ABDOMEN: Soft, nontender, nondistended, normoactive bowel sounds. NEUROLOGIC: The patient is alert, oriented, able to answer yes/no questions, otherwise nonfocal. EXTREMITIES: No cyanosis, clubbing. There is trace edema. LABORATORY DATA: Sodium 141, potassium 4.3, chloride 108, bicarbonate 25, BUN of 49, creatinine 1.7 5, blood sugar 199, magnesium 2.1, calcium 8.9, hemoglobin of 8.8, hematocrit of 27.2. White blood cell count 10.5, platelet count of 212 arterial blood gas has a pH of 7.39, pCO2 of 38.7, pO2 of 128 .7, oxygen saturation 98.3. Chest x-ray is pending. ASSESSMENT AND PLAN 1. Acute respiratory failure with hypercapnia. The patient remains stable and has improved compare d to yesterday. The patient's tongue is now much less swollen. Hopefully weaning trials can be per formed today as patient is more alert and is able to follow commands. Will defer to Dr. Martinez's j udgement as to whether or not she is ready for weaning trials. Patient understands what she needs t o do and family is at the bedside to assist. 2. Acute on chronic renal insufficiency. Continues to improve with creatinine of 1.75 today Will continue to monitor. The patient's renal function has recovered from her hypotensive episodes. 3. Urinary tract infection. The patient has been changed over to ampicillin as patient has 3 bacte dinh that are sensitive to penicillin and Levaquin has been discontinued. 4. Anemia, slightly worse. We will continue to monitor, but no need for transfusion. 5. Atrial fibrillation. This is improved with better rate control. We will continue with current medications and traveler changer to oral medications once more stable. 6. Hypertension/coronary artery disease. The patient is more hypertensive. We will continue to ad just medications. 7. Diabetes. The patient has been more hypoglycemic and will continue with sliding scale Lantus es pecially while on the feeding tubes. Dictated By: MORGAN SNOW MD SR/NTS Conf#: [id number] DID#: [id number]
--- NOTE | 2017-06-20 09:48 | CONS ---
Date/Time of Note Date/Time of Note DATE: 06/20/17 TIME: 09:47 Consult Date/Type/Reason Admit Date/Time Jun 14, 2017 at 09:27 Type of Consultation: Pulmonary Ordering Provider: SARAH VINCENT Subjective Awake alert oriented. Follows commands. Decreased tongue edema. Minimal secretions. Objective Vital Signs Date Time Temp Pulse Resp B/P Pulse Ox O2 Delivery O2 Flow Rate FiO2 06/20/17 07:15 106 14 99 30 06/20/17 07:00 161/77 06/20/17 06:00 Mechanical Ventilator 06/20/17 04:00 98.3 06/16/17 08:00 2.0 Intake and Output 06/19/17 06/19/17 06/20/17 15:00 23:00 07:00 Intake Total 774.48 ml 875.018 ml 884.282 ml Output Total 495 ml 1260 ml 470 ml Balance 279.48 ml -384.982 ml 414.282 ml Exam PHYSICAL EXAMINATION: GENERAL: Elderly-appearing intubated sedation held this morning. Awake alert and oriented off sedation. VITAL SIGNS: NECK: Supple. No JVD or lymphadenopathy. CARDIAC: S1, S2, no added sounds or murmurs. CHEST: Diminished air entry both lung bases. ABDOMEN: Soft, nontender. No guarding or rebound. EXTREMITIES: No cyanosis, clubbing, 1+ edema. NEUROLOGIC: Generalized weakness. Results/Medications Result Diagram: 06/20/17 0400 06/20/17 0400 Results 24 hrs Laboratory Tests Test 06/19/17 13:59 06/19/17 17:02 06/19/17 20:47 06/20/17 01:42 Bedside Glucose 172 234 H 180 199 Test 06/20/17 04:00 06/20/17 04:43 06/20/17 07:00 06/20/17 08:58 White Blood Count 10.5 Red Blood Count 2.94 L Hemoglobin 8.8 L Hematocrit 27.2 L Mean Corpuscular Volume 92.5 Mean Corpuscular Hemoglobin 29.9 Mean Corpuscular Hemoglobin Concent 32.4 Red Cell Distribution Width 14.8 H Platelet Count 212 Mean Platelet Volume 10.5 H Neutrophils % 87.1 H Lymphocytes % 6.8 L Monocytes % 5.3 Eosinophils % 0.0 Basophils % 0.1 Nucleated Red Blood Cells % 0.0 Neutrophils # 9.2 H Lymphocytes # 0.7 L Monocytes # 0.6 Eosinophils # 0.0 Basophils # 0.0 Nucleated Red Blood Cells # 0.0 Sodium Level 141 Potassium Level 4.3 Chloride Level 108 Carbon Dioxide Level 25 Anion Gap 12 Blood Urea Nitrogen 49 H Creatinine 1.75 H Glucose Level 199 Calcium Level 8.9 Magnesium Level 2.1 Bedside Glucose 200 157 Blood Gas Specimen Source Blood arterial Arterial Blood Date Drawn 06/20/2017 7:20:20 AM Arterial Blood pH (Temp corrected) 7.390 Arterial Blood pCO2 (Temp correct) 38.7 Arterial Blood pO2 (Temp corrected) 128.7 H Arterial Blood HCO3 22.9 Arterial Blood Base Excess -1.8 Arterial Blood Oxygen Saturation 98.3 [place] Test ACCEPTAB Arterial Blood Gas Puncture Site Right Radial Arterial Blood Carboxyhemoglobin 0.3 Arterial Blood Methemoglobin 0.1 Blood Gas A-a O2 Differential 39.7 H Oxyhemoglobin Percent 97.9 Total Hemoglobin 10.3 L Blood Gas Temperature 37.0 Blood Gas Respiration Rate 14.0 Blood Gas Actual Respiration Rate 16 Blood Gas Modality VENT - AC FiO2 30.0 Blood Gas Tidal Volume 500.0 Blood Gas Low PEEP Setting 5.0 Blood Gas Notified Whom JLD Blood Gas Notified Time 06/20/2017 7:48:57 AM Medications Current Medications Ondansetron HCl (Zofran Inj) 4 mg Q6H PRN IV NAUSEA AND/OR VOMITING Last administered on 06/16/17 00:28; Admin Dose 4 MG; Start 06/13/17 at 15:30 Acetaminophen (Tylenol Tab) 650 mg Q6H PRN PO PAIN LEVEL 1-3 OR FEVER; Start 06/13/17 at 15:30 Docusate Sodium (Colace) 100 mg Q12H PRN PO CONSTIPATION; Start 06/13/17 at 15 :30 Magnesium Hydroxide (Milk Of Mag) 30 ml DAILY PRN PO CONSTIPATION; Start 06/13 at 15:30 Hydralazine HCl (Apresoline) 10 mg Q6H PRN IV ELEVATED BLOOD PRESSURE Last administered on 06/19/17 13:50; Admin Dose 10 MG; Start 06/13/17 at 15:30 Nitroglycerin (Nitroglycerin (Sl Tab) 0.4 Mg) 1 tab Q5M PRN SL ANGINA; Start 06/13/17 at 15:30 Aspirin (Aspirin) 325 mg DAILY PO Last administered on 06/20/17 08:52; Admin Dose 325 MG; Start 06/14/17 at 09:00 Atorvastatin Calcium (Lipitor) 10 mg HS PO Last administered on 06/16/17 21: 47; Admin Dose 10 MG; Start 06/13/17 at 21:00; Status Future Hold Levothyroxine Sodium (Synthroid) 100 mcg DAILY PO Last administered on 08:52; Admin Dose 100 MCG; Start 06/14/17 at 09:00 Montelukast Sodium (Singulair) 10 mg QHS PO Last administered on 06/19/17 20: 32; Admin Dose 10 MG; Start 06/13/17 at 21:00 Ranitidine HCl (Zantac) 150 mg HS PO Last administered on 06/19/17 20:32; Admin Dose 150 MG; Start 06/13/17 at 21:00 Insulin Glargine (Lantus) 10 unit DAILY@20 SC ; Start 06/14/17 at 20:00; Status Future Hold Diagnostic Test (Pha) (Accu-Chek) 1 ea 02 XX Last administered on 06/19/17 02 :18; Admin Dose 1 EA; Start 06/15/17 at 02:00 Miscellaneous Information 1 ea NOTE XX ; Start 06/14/17 at 06:00 Glucose (Glutose) 15 gm Q15M PRN PO DECREASED GLUCOSE; Start 06/14/17 at 06:00 Glucose (Glutose) 22.5 gm Q15M PRN PO DECREASED GLUCOSE; Start 06/14/17 at 06: 00 Dextrose (D50w Syringe) 25 ml Q15M PRN IV DECREASED GLUCOSE Last administered on 06/17/17 04:41; Admin Dose 25 ML; Start 06/14/17 at 06:00 Dextrose (D50w Syringe) 50 ml Q15M PRN IV DECREASED GLUCOSE; Start 06/14/17 at 06:00 Glucagon (Glucagen) 1 mg Q15M PRN IM DECREASED GLUCOSE; Start 06/14/17 at 06: 00 Glucose 15 gm 15 gm Q15M PRN BUCCAL DECREASED GLUCOSE; Start 06/14/17 at 06:00 Diltiazem HCl (Cardizem-D5W 125 Mg/125 ml Drip) 125 ml @ 0 mls/hr TITRATE IV Last administered on 06/19/17 16:59; Admin Dose 5 MLS/HR; Start 06/14/17 at 15:00 Sertraline HCl 50 mg 50 mg HS PO Last administered on 06/19/17 20:32; Admin Dose 50 MG; Start 06/15/17 at 21:00 Norepinephrine 250 ml @ 1.875 mls/ hr TITRATE IV Last administered on 00:34; Admin Dose 18.75 MLS/HR; Start 06/16/17 at 10:30 Dopamine HCl/ Dextrose 250 ml @ 5.325 mls/ hr TITRATE IV ; Start 06/16/17 at 11:00 Diltiazem HCl (Cardizem) 30 mg Q8 GTB Last administered on 06/20/17 05:18; Admin Dose 30 MG; Start 06/16/17 at 14:00 Enoxaparin Sodium (Lovenox) 60 mg DAILY SC Last administered on 06/20/17 08: 54; Admin Dose 60 MG; Start 06/17/17 at 09:00 IV Flush (NS 10 ml) 10 ml PRN PRN IV IV PROTOCOL; Start 06/16/17 at 14:00 Haloperidol (Haldol) 1 mg Q12 PRN IV agitation Last administered on 06/16/17 21:56; Admin Dose 1 MG; Start 06/16/17 at 20:30 Insulin Aspart NOVOLOG *MILD* ALGORI... Q4 SC Last administered on 06/20/17 09:00; Admin Dose 1 UNIT; Start 06/17/17 at 01:00 Propofol 100 ml @ 2.13 mls/hr Q12H IV Last administered on 06/20/17 05:03; Admin Dose 2.982 MLS/HR; Start 06/17/17 at 00:00 Midazolam HCl 50 ml @ 1 mls/hr TITRATE IV Last administered on 06/17/17 04:29 ; Admin Dose 10 MLS/HR; Start 06/17/17 at 00:30 Dextrose/Sodium Chloride (D5-NS) 1,000 ml @ 40 mls/hr Q24H IV Last administered on 06/19/17 20:30; Admin Dose 60 MLS/HR; Start 06/17/17 at 09:00 Hydrocortisone (Solu-Cortef) 40 mg DAILY IV Last administered on 06/20/17 08: 52; Admin Dose 40 MG; Start 06/19/17 at 21:00; Stop 06/23/17 at 09:00 Ampicillin (Ampicillin Susp (Ped)) 250 mg Q8 NGT Last administered on 05:03; Admin Dose 250 MG; Start 06/19/17 at 22:00 Metoprolol Tartrate (Lopressor) 50 mg BID PO Last administered on 06/20/17 08 :53; Admin Dose 50 MG; Start 06/19/17 at 21:00 Hydralazine HCl (Apresoline) 25 mg Q8 PO ; Start 06/20/17 at 14:00 Assessment/Plan Chief Complaint/Hosp Course IMPRESSION: 1. Acute hypercapnic respiratory failure, now intubated on mechanical ventilation. Chest x-ray demonstrates a moderate to large right pleural effusion. Status post thoracentesis. Pleural fluid appears transudative. Cultures and cytology pending. Continue mechanical ventilation. Decreased tongue edema and minimal secretions. 2. History of hypertension. 3. Atrial fibrillation with rapid ventricular rate. Currently rate controlled. 4. Diabetes mellitus. 5. Status post shock. 6. Acute renal failure. Likely ATN injury. Renal function appears to be stabilizing. Plan 1. Continued mechanical ventilation, CPAP trial this morning. 2. Vasopressors as needed to keep MAP > 65 3. Hold sedation if tolerated. 4. Deep venous thrombosis and gastrointestinal prophylaxis. 5. Right lung thoracentesis with pleural fluid studies pending. 6. Start tube feeding. 7. Renal recommendations Problems: YAZMIN VARGAS MD, [facility] Jun 20, 2017 09:48
[2017-06-20 12:45] LABS: AADO2 Arterial 42.8 mmHg (7.0-24.0); Allen Test ACCEPTAB; Arterial Base Excess 0.6 mmol/L (-3.0-3); Arterial COHb 0.3 % (0.0-3.0); Arterial Fraction of Oxyhgb 97.8 % (93.0-99.0); Arterial HCO3 25.3 mmol/L (22.0-26.0); Arterial MetHb 0.2 % (0.0-1.5); Blood Gas PS 10; MODE VENT - CPAP
[2017-06-20] MEDS ORDERED: ALTEPLASE (CATHFLO) 2 MG INJ CATHETER PRN (17:30)
[2017-06-20] MEDS: RANITIDINE 150 MG TAB PO SCH (20:55)
[2017-06-20] MEDS: MONTELUKAST 10 MG TAB PO SCH (20:55)
[2017-06-20] MEDS: SERTRALINE 100 MG TAB PO SCH (20:55)
[2017-06-21] VITALS (30 sets, daily range): BP systolic 139–183; BP diastolic 61–94; PULSE 58–101; RESP 15–33
[2017-06-21] MEDS: INSULIN ASPART [NOVOLOG] 3 ML PEN SC SCH ×6 (00:45→20:40)
[2017-06-21] MEDS: ACCU-CHEK XX SCH (02:00)
[2017-06-21 05:33] LABS: EOSINOPHILS # 0.1 10^3/ul (0.0-0.5); EOSINOPHILS % 0.4 % (0.0-7.0); HEMATOCRIT 28.8 % (37.0-47.0); LYMPHOCYTES # 1.4 10^3/ul (0.8-2.9); LYMPHOCYTES % 12.3 % (15.0-51.0); MEAN CORPUSCULAR HEMOGLOBIN 29.6 pg (29.0-33.0); MEAN CORPUSCULAR HGB CONC 31.3 g/dl (32.0-37.0); MEAN CORPUSCULAR VOLUME 94.7 fl (82.0-101.0); MEAN PLATELET VOLUME 9.9 fl (7.4-10.4); MONOCYTE # 1.3 10^3/ul (0.3-0.9); MONOCYTES % 11.2 % (0.0-11.0); NEUTROPHIL # 8.8 10^3/ul (1.6-7.5); NEUTROPHILS % 75.7 % (39.0-77.0); PLATELET COUNT 254 10^3/UL (140-415); RED BLOOD COUNT 3.04 10^6/ul (4.20-5.40); RED CELL DISTRIBUTION WIDTH 14.8 % (11.5-14.5); WHITE BLOOD COUNT 11.7 10^3/ul (4.8-10.8)
[2017-06-21] MEDS: AMPICILLIN NGT SCH ×2 (05:58→14:04)
[2017-06-21] MEDS: DILTIAZEM 60 MG TAB GTB SCH ×3 (06:00→22:41)
[2017-06-21 06:47] LABS: CALCIUM 8.7 mg/dl (8.4-10.2); CREATININE 1.58 mg/dl (0.44-1.00); POTASSIUM 3.8 mmol/L (3.5-5.1)
--- NOTE | 2017-06-21 08:55 | RADRPT ---
PROCEDURE: XR Chest. CLINICAL INDICATION: Congestive heart failure . TECHNIQUE: Single frontal chest x-ray. COMPARISON: 06/20/2017 FINDINGS: The endotracheal tube has been removed. Nasogastric tube and left arm PICC line are in place unchang ed. Small left pleural effusion is unchanged. . Calcific atherosclerosis of the aorta is present.. The cardiomediastinal silhouette is unremarkable. The osseous structures are intact. IMPRESSION: Removal of endotracheal tube. Other tubes and lines are unchanged. Stable small left pleural effusion.. RPTAT: AA .Bao Perez MD, MD Date Time Electronically viewed and signed by .Bao Perez MD, MD on 06/21/2017 08:55 .L/
[2017-06-21 09:09] LABS: AADO2 Arterial 45.2 mmHg (7.0-24.0); Allen Test ACCEPTAB; Arterial Base Excess 0.7 mmol/L (-3.0-3); Arterial COHb 0.1 % (0.0-3.0); Arterial Fraction of Oxyhgb 93.9 % (93.0-99.0); Arterial MetHb 0.2 % (0.0-1.5); Arterial Total Hemglobin 10.7 g/dl (12.0-18.0); MODE NASAL CANNULA
[2017-06-21] MEDS: ASPIRIN 325 MG TAB PO SCH (09:12)
[2017-06-21] MEDS: METOPROLOL 50 MG TAB PO SCH ×2 (09:12→20:40)
[2017-06-21] MEDS: HYDROCORTISONE 100 MG INJ IV SCH (09:13)
[2017-06-21] MEDS: LEVOTHYROXINE 100 MCG TAB PO SCH (09:13)
[2017-06-21] MEDS: ENOXAPARIN 60 MG/0.6 ML SYG SC SCH (09:30)
--- NOTE | 2017-06-21 10:27 | CONS ---
Date/Time of Note Date/Time of Note DATE: 06/21/17 TIME: 10:24 Assessment/Plan Assessment/Plan Additional Assessment/Plan Chest x-ray was reviewed from today which is showing mild cardiomegaly with very minimal if any left lower lobe subsegmental atelectasis. ABG was reviewed from today which is again showing hypercapnia which is uncompensated. Assessment and recommendations; 1. Patient admitted with hypercapnic respiratory failure status post extubation with ABG now again indicating central hypoventilation with hypercapnia with respiratory acidosis. 2. Patient however is completely awake and alert. 3. History of chronic atrial fibrillation. 4. Status post right thoracentesis. 5. Chronic renal insufficiency. 6. Mild anemia. Start BiPAP. Prognosis is guarded and underlying etiology is likely central hypoventilation which caused initial admission with respiratory failure. Consultation Date/Type/Reason Admit Date/Time Jun 14, 2017 at 09:27 Initial Consult Date Type of Consultation: Pulmonary/critical care Referring Provider: SARAH VINCENT 24 HR Interval Summary Free Text/Dictation Patient's condition is stable. She was successfully extubated yesterday. Patient remains awake and alert. Has remained hemodynamically stable. All the remaining in chronic atrial fibrillation. General exam; elderly woman, awake and alert. Currently in no distress. Exam/Review of Systems Vital Signs Vitals Vital Signs Date Time Temp Pulse Resp B/P Pulse Ox O2 Delivery O2 Flow Rate FiO2 06/21/17 08:00 89 06/21/17 08:00 Nasal Cannula 2.0 06/21/17 07:00 18 142/80 98 06/21/17 04:00 98.4 06/20/17 15:45 Intake and Output 06/20/17 06/20/17 06/21/17 15:00 23:00 07:00 Intake Total 226.456 ml 770 ml 610 ml Output Total 1000 ml 595 ml 280 ml Balance -773.544 ml 175 ml 330 ml Exam HEENT exam; supple neck, no JVD. No lymphadenopathy. Midline trachea. No thyromegaly. Patient has multiple carious teeth. Pupils are equal and reactive to light. No neck masses. Chest exam; clear to auscultation. S1-S2 audible, no murmurs. irregular rhythm. Abdomen exam; soft, nontender. No organomegaly. Bowel sounds audible. Extremity exam; no edema. [employer] exam; no focal motor deficit. Results Result Diagram: 06/21/17 0430 06/21/17 0430 Results 24 hrs Laboratory Tests Test 06/20/17 12:00 06/20/17 12:41 06/20/17 17:21 06/20/17 20:56 Blood Gas Specimen Source Blood arterial Arterial Blood Date Drawn 06/20/2017 12:30:15 PM Arterial Blood pH (Temp corrected) 7.407 Arterial Blood pCO2 (Temp correct) 41.1 Arterial Blood pO2 (Temp corrected) 122.8 H Arterial Blood HCO3 25.3 Arterial Blood Base Excess 0.6 Arterial Blood Oxygen Saturation 98.3 [place] Test ACCEPTAB Arterial Blood Gas Puncture Site Left Radial Arterial Blood Carboxyhemoglobin 0.3 Arterial Blood Methemoglobin 0.2 Blood Gas A-a O2 Differential 42.8 H Oxyhemoglobin Percent 97.8 Total Hemoglobin 10.0 L Blood Gas Temperature 37.0 Blood Gas Actual Respiration Rate 18 Blood Gas Modality VENT - CPAP FiO2 30.0 Blood Gas Low PEEP Setting 5.0 Blood Gas Pressure Support 10 Blood Gas Notified Whom JLD Blood Gas Notified Time 06/20/2017 12:45:50 PM Bedside Glucose 150 134 143 Test 06/21/17 00:44 06/21/17 04:30 06/21/17 04:54 06/21/17 07:00 Bedside Glucose 126 106 White Blood Count 11.7 H Red Blood Count 3.04 L Hemoglobin 9.0 L Hematocrit 28.8 L Mean Corpuscular Volume 94.7 Mean Corpuscular Hemoglobin 29.6 Mean Corpuscular Hemoglobin Concent 31.3 L Red Cell Distribution Width 14.8 H Platelet Count 254 Mean Platelet Volume 9.9 Neutrophils % 75.7 Lymphocytes % 12.3 L Monocytes % 11.2 H Eosinophils % 0.4 Basophils % 0.0 Nucleated Red Blood Cells % 0.0 Neutrophils # 8.8 H Lymphocytes # 1.4 Monocytes # 1.3 H Eosinophils # 0.1 Basophils # 0.0 Nucleated Red Blood Cells # 0.0 Sodium Level 146 H Potassium Level 3.8 Chloride Level 108 Carbon Dioxide Level 27 Anion Gap 15 Blood Urea Nitrogen 49 H Creatinine 1.58 H Glucose Level 220 Calcium Level 8.7 Blood Gas Specimen Source Blood arterial Arterial Blood Date Drawn 06/21/2017 8:45:41 AM Arterial Blood pH (Temp corrected) 7.297 *L Arterial Blood pCO2 (Temp correct) 58.6 H Arterial Blood pO2 (Temp corrected) 78.0 L Arterial Blood HCO3 28.0 H Arterial Blood Base Excess 0.7 Arterial Blood Oxygen Saturation 94.2 L [place] Test ACCEPTAB Arterial Blood Gas Puncture Site Right Brachial Arterial Blood Carboxyhemoglobin 0.1 Arterial Blood Methemoglobin 0.2 Blood Gas A-a O2 Differential 45.2 H Oxyhemoglobin Percent 93.9 Total Hemoglobin 10.7 L Blood Gas Temperature 37.0 Blood Gas Modality NASAL CANNULA FiO2 27.0 Blood Gas Critical Value Read Back [place] BOBO RN Blood Gas Notified Whom DT Blood Gas Notified Time 06/21/2017 9:07:43 AM Test 06/21/17 09:19 Bedside Glucose 112 Medications Medications Current Medications Ondansetron HCl (Zofran Inj) 4 mg Q6H PRN IV NAUSEA AND/OR VOMITING Last administered on 06/16/17 00:28; Admin Dose 4 MG; Start 06/13/17 at 15:30 Acetaminophen (Tylenol Tab) 650 mg Q6H PRN PO PAIN LEVEL 1-3 OR FEVER; Start 06/13/17 at 15:30 Docusate Sodium (Colace) 100 mg Q12H PRN PO CONSTIPATION; Start 06/13/17 at 15 :30 Magnesium Hydroxide (Milk Of Mag) 30 ml DAILY PRN PO CONSTIPATION; Start 06/13 at 15:30 Hydralazine HCl (Apresoline) 10 mg Q6H PRN IV ELEVATED BLOOD PRESSURE Last administered on 06/19/17 13:50; Admin Dose 10 MG; Start 06/13/17 at 15:30 Nitroglycerin (Nitroglycerin (Sl Tab) 0.4 Mg) 1 tab Q5M PRN SL ANGINA; Start 06/13/17 at 15:30 Aspirin (Aspirin) 325 mg DAILY PO Last administered on 06/21/17 09:12; Admin Dose 325 MG; Start 06/14/17 at 09:00 Atorvastatin Calcium (Lipitor) 10 mg HS PO Last administered on 06/16/17 21: 47; Admin Dose 10 MG; Start 06/13/17 at 21:00; Status Future Hold Levothyroxine Sodium (Synthroid) 100 mcg DAILY PO Last administered on 09:13; Admin Dose 100 MCG; Start 06/14/17 at 09:00 Montelukast Sodium (Singulair) 10 mg QHS PO Last administered on 06/20/17 20: 55; Admin Dose 10 MG; Start 06/13/17 at 21:00 Ranitidine HCl (Zantac) 150 mg HS PO Last administered on 06/20/17 20:55; Admin Dose 150 MG; Start 06/13/17 at 21:00 Insulin Glargine (Lantus) 10 unit DAILY@20 SC ; Start 06/14/17 at 20:00; Status Future Hold Diagnostic Test (Pha) (Accu-Chek) 1 ea 02 XX Last administered on 06/19/17 02 :18; Admin Dose 1 EA; Start 06/15/17 at 02:00 Miscellaneous Information 1 ea NOTE XX ; Start 06/14/17 at 06:00 Glucose (Glutose) 15 gm Q15M PRN PO DECREASED GLUCOSE; Start 06/14/17 at 06:00 Glucose (Glutose) 22.5 gm Q15M PRN PO DECREASED GLUCOSE; Start 06/14/17 at 06: 00 Dextrose (D50w Syringe) 25 ml Q15M PRN IV DECREASED GLUCOSE Last administered on 06/17/17 04:41; Admin Dose 25 ML; Start 06/14/17 at 06:00 Dextrose (D50w Syringe) 50 ml Q15M PRN IV DECREASED GLUCOSE; Start 06/14/17 at 06:00 Glucagon (Glucagen) 1 mg Q15M PRN IM DECREASED GLUCOSE; Start 06/14/17 at 06: 00 Glucose 15 gm 15 gm Q15M PRN BUCCAL DECREASED GLUCOSE; Start 06/14/17 at 06:00 Diltiazem HCl (Cardizem-D5W 125 Mg/125 ml Drip) 125 ml @ 0 mls/hr TITRATE IV Last administered on 06/19/17 16:59; Admin Dose 5 MLS/HR; Start 06/14/17 at 15:00 Sertraline HCl 50 mg 50 mg HS PO Last administered on 06/20/17 20:55; Admin Dose 50 MG; Start 06/15/17 at 21:00 Norepinephrine 250 ml @ 1.875 mls/ hr TITRATE IV Last administered on 00:34; Admin Dose 18.75 MLS/HR; Start 06/16/17 at 10:30 Dopamine HCl/ Dextrose 250 ml @ 5.325 mls/ hr TITRATE IV ; Start 06/16/17 at 11:00 Diltiazem HCl (Cardizem) 30 mg Q8 GTB Last administered on 06/21/17 06:00; Admin Dose 30 MG; Start 06/16/17 at 14:00 Enoxaparin Sodium (Lovenox) 60 mg DAILY SC Last administered on 06/21/17 09: 30; Admin Dose 60 MG; Start 06/17/17 at 09:00 IV Flush (NS 10 ml) 10 ml PRN PRN IV IV PROTOCOL; Start 06/16/17 at 14:00 Haloperidol (Haldol) 1 mg Q12 PRN IV agitation Last administered on 06/16/17 21:56; Admin Dose 1 MG; Start 06/16/17 at 20:30 Insulin Aspart NOVOLOG *MILD* ALGORI... Q4 SC Last administered on 06/20/17 21:06; Admin Dose 1 UNIT; Start 06/17/17 at 01:00 Propofol 100 ml @ 2.13 mls/hr Q12H IV Last administered on 06/20/17 05:03; Admin Dose 2.982 MLS/HR; Start 06/17/17 at 00:00 Midazolam HCl 50 ml @ 1 mls/hr TITRATE IV Last administered on 06/17/17 04:29 ; Admin Dose 10 MLS/HR; Start 06/17/17 at 00:30 Dextrose/Sodium Chloride (D5-NS) 1,000 ml @ 40 mls/hr Q24H IV Last administered on 06/20/17 23:59; Admin Dose 40 MLS/HR; Start 06/17/17 at 09:00 Hydrocortisone (Solu-Cortef) 40 mg DAILY IV Last administered on 06/21/17 09: 13; Admin Dose 40 MG; Start 06/19/17 at 21:00; Stop 06/23/17 at 09:00 Ampicillin (Ampicillin Susp (Ped)) 250 mg Q8 NGT Last administered on 05:58; Admin Dose 250 MG; Start 06/19/17 at 22:00 Metoprolol Tartrate (Lopressor) 50 mg BID PO Last administered on 11/18/17at 09 :12; Admin Dose 50 MG; Start 06/19/17 at 21:00 Hydralazine HCl (Apresoline) 25 mg Q8 PO Last administered on 06/21/17t 06:01 ; Admin Dose 25 MG; Start 06/20/17 at 14:00 EN BURNETTE Jun 21, 2017 10:27
[2017-06-21] MEDS: PROPOFOL 100 ML IV SCH ×3 (11:44→23:47)
--- NOTE | 2017-06-21 13:42 | CONS ---
Date/Time of Note Date/Time of Note DATE: 06/21/17 TIME: 13:30 Assessment/Plan Assessment/Plan Chief Complaint/Hosp Course IMP: 1.Hypotension-improved off of pressors/NL EF by echo this admit and now with HTN 2. AF with RVR-overall improved HR but still some rapid rates 3. Renal failure 4. Hypercarbic resp failure s/p extubation on bipap 5. Hypothyroid 6. Renal failure-improving slowly Recc: -Tele in ICu -serial ecg's -Follow volume status closely -Continue lovenox QD/asa -Follow HR/BP/volume status closely -Continue BB/CCB and follow HR closely with possible need to make further increase -Increase hydralazine to improve BP control -Contnue Bipap Problems: Consultation Date/Type/Reason Admit Date/Time Jun 14, 2017 at 09:27 Initial Consult Date 06/15/17 Type of Consultation: cardiology Reason for Consultation CHF Referring Provider: SARAH VINCENT Exam/Review of Systems Vital Signs Vitals Vital Signs Date Time Temp Pulse Resp B/P Pulse Ox O2 Delivery O2 Flow Rate FiO2 06/21/17 13:00 83 30 154/87 98 BIPAP 06/21/17 12:00 97.7 06/21/17 10:00 2.0 06/20/17 15:45 Intake and Output 06/20/17 06/20/17 06/21/17 14:59 22:59 06:59 Intake Total 339.864 ml 730 ml 650 ml Output Total 950 ml 650 ml 325 ml Balance -610.136 ml 80 ml 325 ml Exam Review of Systems: CONSTITUTIONAL: No fevers, chills. PULMONARY: on BIPAP CARDIOVASCULAR: No chest pain/palpitations GASTROINTESTINAL: No nausea/vomiting. GENITOURINARY: No hematuria/dysuria. MUSCULOSKELETAL: No myagias/arthalgias. PSYCHIATRIC: The patient denies depression. NEUROLOGIC: No weakness Constitutional: alert Psych: no complaints Head: normocephalic ENMT: mucosa pink and moist Neck: jvd (9 cm water), supple Respiratory: other (upper airway rhoncherous sounds) Cardiovascular: regular rate and rhythm Gastrointestinal: non-tender, soft Musculoskeletal: muscle tone (normal) Extremities: edema (trace/B) Neurological: other (No focal defgicits) Results Result Diagram: 06/21/17 0430 06/21/17 0430 Results 24 hrs Laboratory Tests Test 06/20/17 17:21 06/20/17 20:56 06/21/17 00:44 06/21/17 04:30 Bedside Glucose 134 143 126 White Blood Count 11.7 H Red Blood Count 3.04 L Hemoglobin 9.0 L Hematocrit 28.8 L Mean Corpuscular Volume 94.7 Mean Corpuscular Hemoglobin 29.6 Mean Corpuscular Hemoglobin Concent 31.3 L Red Cell Distribution Width 14.8 H Platelet Count 254 Mean Platelet Volume 9.9 Neutrophils % 75.7 Lymphocytes % 12.3 L Monocytes % 11.2 H Eosinophils % 0.4 Basophils % 0.0 Nucleated Red Blood Cells % 0.0 Neutrophils # 8.8 H Lymphocytes # 1.4 Monocytes # 1.3 H Eosinophils # 0.1 Basophils # 0.0 Nucleated Red Blood Cells # 0.0 Sodium Level 146 H Potassium Level 3.8 Chloride Level 108 Carbon Dioxide Level 27 Anion Gap 15 Blood Urea Nitrogen 49 H Creatinine 1.58 H Glucose Level 220 Calcium Level 8.7 Test 06/21/17 04:54 06/21/17 07:00 06/21/17 09:19 06/21/17 12:43 Bedside Glucose 106 112 127 Blood Gas Specimen Source Blood arterial Arterial Blood Date Drawn 06/21/2017 8:45:41 AM Arterial Blood pH (Temp corrected) 7.297 *L Arterial Blood pCO2 (Temp correct) 58.6 H Arterial Blood pO2 (Temp corrected) 78.0 L Arterial Blood HCO3 28.0 H Arterial Blood Base Excess 0.7 Arterial Blood Oxygen Saturation 94.2 L Carl[place] Test ACCEPTAB Arterial Blood Gas Puncture Site Right Brachial Arterial Blood Carboxyhemoglobin 0.1 Arterial Blood Methemoglobin 0.2 Blood Gas A-a O2 Differential 45.2 H Oxyhemoglobin Percent 93.9 Total Hemoglobin 10.7 L Blood Gas Temperature 37.0 Blood Gas Modality NASAL CANNULA FiO2 27.0 Blood Gas Critical Value Read Back Medina BOBO RN Blood Gas Notified Whom DT Blood Gas Notified Time 06/21/2017 9:07:43 AM Medications Medications Current Medications Ondansetron HCl (Zofran Inj) 4 mg Q6H PRN IV NAUSEA AND/OR VOMITING Last administered on 06/16/17t 00:28; Admin Dose 4 MG; Start 06/13/17 at 15:30 Acetaminophen (Tylenol Tab) 650 mg Q6H PRN PO PAIN LEVEL 1-3 OR FEVER; Start 06/13/17 at 15:30 Docusate Sodium (Colace) 100 mg Q12H PRN PO CONSTIPATION; Start 06/13/17 at 15 :30 Magnesium Hydroxide (Milk Of Mag) 30 ml DAILY PRN PO CONSTIPATION; Start 06/13 at 15:30 Hydralazine HCl (Apresoline) 10 mg Q6H PRN IV ELEVATED BLOOD PRESSURE Last administered on 06/19/17 13:50; Admin Dose 10 MG; Start 06/13/17 at 15:30 Nitroglycerin (Nitroglycerin (Sl Tab) 0.4 Mg) 1 tab Q5M PRN SL ANGINA; Start 06/13/17 at 15:30 Aspirin (Aspirin) 325 mg DAILY PO Last administered on 06/21/17 09:12; Admin Dose 325 MG; Start 06/14/17 at 09:00 Atorvastatin Calcium (Lipitor) 10 mg HS PO Last administered on 06/16/17 21: 47; Admin Dose 10 MG; Start 06/13/17 at 21:00; Status Future Hold Levothyroxine Sodium (Synthroid) 100 mcg DAILY PO Last administered on 09:13; Admin Dose 100 MCG; Start 06/14/17 at 09:00 Montelukast Sodium (Singulair) 10 mg QHS PO Last administered on 06/20/17 20: 55; Admin Dose 10 MG; Start 06/13/17 at 21:00 Ranitidine HCl (Zantac) 150 mg HS PO Last administered on 06/20/17 20:55; Admin Dose 150 MG; Start 06/13/17 at 21:00 Insulin Glargine (Lantus) 10 unit DAILY@20 SC ; Start 06/14/17 at 20:00; Status Future Hold Diagnostic Test (Pha) (Accu-Chek) 1 ea 02 XX Last administered on 06/19/17 02 :18; Admin Dose 1 EA; Start 06/15/17 at 02:00 Miscellaneous Information 1 ea NOTE XX ; Start 06/14/17 at 06:00 Glucose (Glutose) 15 gm Q15M PRN PO DECREASED GLUCOSE; Start 06/14/17 at 06:00 Glucose (Glutose) 22.5 gm Q15M PRN PO DECREASED GLUCOSE; Start 06/14/17 at 06: 00 Dextrose (D50w Syringe) 25 ml Q15M PRN IV DECREASED GLUCOSE Last administered on 06/17/17 04:41; Admin Dose 25 ML; Start 06/14/17 at 06:00 Dextrose (D50w Syringe) 50 ml Q15M PRN IV DECREASED GLUCOSE; Start 06/14/17 at 06:00 Glucagon (Glucagen) 1 mg Q15M PRN IM DECREASED GLUCOSE; Start 06/14/17 at 06: 00 Glucose 15 gm 15 gm Q15M PRN BUCCAL DECREASED GLUCOSE; Start 06/14/17 at 06:00 Diltiazem HCl (Cardizem-D5W 125 Mg/125 ml Drip) 125 ml @ 0 mls/hr TITRATE IV Last administered on 06/19/17 16:59; Admin Dose 5 MLS/HR; Start 06/14/17 at 15:00 Sertraline HCl 50 mg 50 mg HS PO Last administered on 06/20/17 20:55; Admin Dose 50 MG; Start 06/15/17 at 21:00 Norepinephrine 250 ml @ 1.875 mls/ hr TITRATE IV Last administered on 00:34; Admin Dose 18.75 MLS/HR; Start 06/16/17 at 10:30 Dopamine HCl/ Dextrose 250 ml @ 5.325 mls/ hr TITRATE IV ; Start 06/16/17 at 11:00 Diltiazem HCl (Cardizem) 30 mg Q8 GTB Last administered on 06/21/17 06:00; Admin Dose 30 MG; Start 06/16/17 at 14:00 Enoxaparin Sodium (Lovenox) 60 mg DAILY SC Last administered on 06/21/17 09: 30; Admin Dose 60 MG; Start 06/17/17 at 09:00 IV Flush (NS 10 ml) 10 ml PRN PRN IV IV PROTOCOL; Start 06/16/17 at 14:00 Haloperidol (Haldol) 1 mg Q12 PRN IV agitation Last administered on 06/16/17 21:56; Admin Dose 1 MG; Start 06/16/17 at 20:30 Insulin Aspart NOVOLOG *MILD* ALGORI... Q4 SC Last administered on 06/20/17 21:06; Admin Dose 1 UNIT; Start 06/17/17 at 01:00 Propofol 100 ml @ 2.13 mls/hr Q12H IV Last administered on 06/20/17 05:03; Admin Dose 2.982 MLS/HR; Start 06/17/17 at 00:00 Midazolam HCl 50 ml @ 1 mls/hr TITRATE IV Last administered on 06/17/17 04:29 ; Admin Dose 10 MLS/HR; Start 06/17/17 at 00:30 Dextrose/Sodium Chloride (D5-NS) 1,000 ml @ 40 mls/hr Q24H IV Last administered on 06/20/17 23:59; Admin Dose 40 MLS/HR; Start 06/17/17 at 09:00 Hydrocortisone (Solu-Cortef) 40 mg DAILY IV Last administered on 06/21/17 09: 13; Admin Dose 40 MG; Start 06/19/17 at 21:00; Stop 06/23/17 at 09:00 Ampicillin (Ampicillin Susp (Ped)) 250 mg Q8 NGT Last administered on 05:58; Admin Dose 250 MG; Start 06/19/17 at 22:00 Metoprolol Tartrate (Lopressor) 50 mg BID PO Last administered on 06/21/17 09 :12; Admin Dose 50 MG; Start 06/19/17 at 21:00 Hydralazine HCl (Apresoline) 25 mg Q8 PO Last administered on 06/21/17 06:01 ; Admin Dose 25 MG; Start 06/20/17 at 14:00 WEN GOFF Jun 21, 2017 13:41
[2017-06-21 16:06] LABS: AADO2 Arterial 66.2 mmHg (7.0-24.0); Arterial Base Excess -1.1 mmol/L (-3.0-3); Arterial COHb 0.3 % (0.0-3.0); Arterial Fraction of Oxyhgb 96.1 % (93.0-99.0); Arterial HCO3 25.1 mmol/L (22.0-26.0); Arterial MetHb 0.1 % (0.0-1.5); Arterial Total Hemglobin 11.3 g/dl (12.0-18.0); Blood Gas PS 10; MODE MASK - BIPAP
[2017-06-21] MEDS: SERTRALINE 100 MG TAB PO SCH (20:39)
[2017-06-21] MEDS: MONTELUKAST 10 MG TAB PO SCH (20:39)
[2017-06-21] MEDS: RANITIDINE 150 MG TAB PO SCH (20:39)
--- NOTE | 2017-06-21 23:36 | PN ---
DATE: 06/21/2017 SUBJECTIVE: The patient is feeling better. OBJECTIVE: VITAL SIGNS: Temperature 98.5 axillary, pulse 58, respirations 16, blood pressure 164/71, oxygen sa turation 99% on BiPAP. LUNGS: Clear to auscultation bilaterally. HEART: Bradycardic. ABDOMEN: Soft, nontender. There is a nasogastric tube in place, BiPAP mask in place. EXTREMITIES: Trace bilateral lower extremity edema. NEUROLOGIC: Nonfocal. The patient is alert and oriented, able to answer questions. LABORATORY DATA: White blood cell count 11.7, hemoglobin of 9.0, hematocrit 28.8, platelets 254, cr eatinine 1.58, BUN of 49, potassium 3.8, sodium 146. Chest x-ray unchanged. ASSESSMENT AND PLAN 1. Acute respiratory failure/ hypercapnia. The patient is remaining stable and currently on BiPAP. Most recent blood gas done this morning showed pH of 7.33, pCO2 of 48.6, pO2 of 90.6. Continue wi th current treatment plan. Encourage pulmonary toilet. No need for any antibiotics. 2. Acute on chronic kidney disease, improved. Will continue to monitor. Patient with good urine o utput and improving creatinine. Will continue to monitor. 3. Atrial fibrillation, improved on current medications. Rate is improved with some tachycardia. We will continue to adjust meds as needed. 4. Hypertension/coronary artery disease. Blood pressure remained labile. We will continue to adju st meds in order to improve control. 5. Diabetes, improved. We will continue with medications, sliding scale, and diet. 6. Urinary tract infection. Improved. We will continue with antibiotics. Dictated By: MORGAN SNOW MD SR/NTS Conf#: [id number] DID#: [id number]
[2017-06-22] VITALS (24 sets, daily range): BP systolic 117–188; BP diastolic 60–110; PULSE 65–120; RESP 13–24
[2017-06-22] MEDS: DEXTROSE 5%-0.9% NACL 1,000 ML IV SCH (00:31)
[2017-06-22] MEDS: AMPICILLIN NGT SCH ×4 (00:34→21:44)
[2017-06-22] MEDS: INSULIN ASPART [NOVOLOG] 3 ML PEN SC SCH ×6 (01:00→21:00)
[2017-06-22] MEDS: ACCU-CHEK XX SCH (02:00)
[2017-06-22] MEDS: ACETAMINOPHEN 325 MG TAB PO PRN (04:22)
[2017-06-22] MEDS: DILTIAZEM 60 MG TAB GTB SCH ×3 (05:58→21:36)
[2017-06-22 06:50] LABS: BASOPHILS % 0.1 % (0.0-2.0); EOSINOPHILS # 0.1 10^3/ul (0.0-0.5); EOSINOPHILS % 0.9 % (0.0-7.0); HEMATOCRIT 30.4 % (37.0-47.0); HEMOGLOBIN 9.4 g/dl (12.0-16.0); LYMPHOCYTES # 1.4 10^3/ul (0.8-2.9); LYMPHOCYTES % 12.7 % (15.0-51.0); MEAN CORPUSCULAR HEMOGLOBIN 29.7 pg (29.0-33.0); MEAN CORPUSCULAR HGB CONC 30.9 g/dl (32.0-37.0); MEAN CORPUSCULAR VOLUME 96.2 fl (82.0-101.0); MEAN PLATELET VOLUME 10.4 fl (7.4-10.4); MONOCYTE # 1.3 10^3/ul (0.3-0.9); MONOCYTES % 11.4 % (0.0-11.0); NEUTROPHIL # 8.4 10^3/ul (1.6-7.5); NEUTROPHILS % 74.2 % (39.0-77.0); PLATELET COUNT 249 10^3/UL (140-415); RED BLOOD COUNT 3.16 10^6/ul (4.20-5.40); RED CELL DISTRIBUTION WIDTH 14.4 % (11.5-14.5); WHITE BLOOD COUNT 11.3 10^3/ul (4.8-10.8)
[2017-06-22 07:15] LABS: CALCIUM 9.4 mg/dl (8.4-10.2); CREATININE 1.42 mg/dl (0.44-1.00); MAGNESIUM 2.2 mg/dl (1.7-2.5)
[2017-06-22] MEDS: HYDROCORTISONE 100 MG INJ IV SCH (09:39)
[2017-06-22] MEDS: LEVOTHYROXINE 100 MCG TAB PO SCH (09:39)
[2017-06-22] MEDS: METOPROLOL 50 MG TAB PO SCH ×2 (09:40→21:37)
[2017-06-22] MEDS: ASPIRIN 325 MG TAB PO SCH (09:41)
[2017-06-22] MEDS: ENOXAPARIN 60 MG/0.6 ML SYG SC SCH (09:43)
[2017-06-22 09:58] LABS: AADO2 Arterial 5.1 mmHg (7.0-24.0); Allen Test ACCEPTAB; Arterial Base Excess -0.4 mmol/L (-3.0-3); Arterial COHb 0.3 % (0.0-3.0); Arterial Fraction of Oxyhgb 97.5 % (93.0-99.0); Arterial HCO3 26.4 mmol/L (22.0-26.0); Arterial MetHb 0.3 % (0.0-1.5); Arterial Total Hemglobin 10.3 g/dl (12.0-18.0); MODE NASAL CANNULA
--- NOTE | 2017-06-22 11:40 | CONS ---
Date/Time of Note Date/Time of Note DATE: 06/22/17 TIME: 11:38 Assessment/Plan Assessment/Plan Additional Assessment/Plan Assessment recommendations; 1. Patient admitted with respiratory failure due to acute hypercapnia with marked interval improvement. 2. ABG from yesterday showed hypercapnia and the patient responded well to overnight BiPAP. 3. Likely some element of central hypoventilation. 4. Chronic atrial fibrillation. 5. Chronic renal insufficiency. 6. Status post right thoracentesis. 7. Anemia. Continue current supportive care. Patient responding well to current treatment regimen. Consultation Date/Type/Reason Admit Date/Time Jun 14, 2017 at 09:27 Type of Consultation: Pulmonary/critical care Referring Provider: SARAH VINCENT 24 HR Interval Summary Free Text/Dictation Patient's condition is stable. Responded well to BiPAP overnight. Remains completely awake and alert. General exam; elderly woman, awake alert, currently in no distress. Exam/Review of Systems Vital Signs Vitals Vital Signs Date Time Temp Pulse Resp B/P Pulse Ox O2 Delivery O2 Flow Rate FiO2 06/22/17 10:00 100 19 126/70 96 Nasal Cannula 06/22/17 08:00 2.0 06/22/17 08:00 97.8 06/22/17 02:58 30 Intake and Output 06/21/17 06/21/17 06/22/17 14:59 22:59 06:59 Intake Total 410 ml 160 ml 480 ml Output Total 285 ml 360 ml 465 ml Balance 125 ml -200 ml 15 ml Exam HEENT exam; supple neck, no JVD. No lymphadenopathy. Midline trachea. No thyromegaly. Patient has a multiple carious teeth. Chest exam; clear to auscultation. S1-S2 audible, no murmurs. Irregular rhythm. Abdomen exam; soft, nontender. Nondistended. No organomegaly. Bowel sounds audible. Extremity exam; no edema. CARTO[employer] ARTIST exam; no focal deficit. Results Result Diagram: 06/22/17 0400 06/22/17 0400 Results 24 hrs Laboratory Tests Test 06/21/17 12:43 06/21/17 14:52 06/21/17 16:58 06/21/17 20:38 Bedside Glucose 127 136 108 Blood Gas Specimen Source Blood arterial Arterial Blood Date Drawn 06/21/2017 3:50:43 PM Arterial Blood pH (Temp corrected) 7.331 L Arterial Blood pCO2 (Temp correct) 48.6 H Arterial Blood pO2 (Temp corrected) 90.6 H Arterial Blood HCO3 25.1 Arterial Blood Base Excess -1.1 Arterial Blood Oxygen Saturation 96.5 [place] Test N/A Arterial Blood Gas Puncture Site Right Brachial Arterial Blood Carboxyhemoglobin 0.3 Arterial Blood Methemoglobin 0.1 Blood Gas A-a O2 Differential 66.2 H Oxyhemoglobin Percent 96.1 Total Hemoglobin 11.3 L Blood Gas Temperature 37.0 Blood Gas Respiration Rate 18.0 Blood Gas Actual Respiration Rate 18 Blood Gas Modality MASK - BIPAP FiO2 30.0 Blood Gas Pressure Support 10 Blood Gas Critical Value Read Back Yareli SOUSA RN Blood Gas Notified Whom RDIX Blood Gas Notified Time 06/21/2017 4:06:34 PM Test 06/22/17 01:43 06/22/17 04:00 06/22/17 04:47 06/22/17 07:26 Bedside Glucose 89 87 White Blood Count 11.3 H Red Blood Count 3.16 L Hemoglobin 9.4 L Hematocrit 30.4 L Mean Corpuscular Volume 96.2 Mean Corpuscular Hemoglobin 29.7 Mean Corpuscular Hemoglobin Concent 30.9 L Red Cell Distribution Width 14.4 Platelet Count 249 Mean Platelet Volume 10.4 Neutrophils % 74.2 Lymphocytes % 12.7 L Monocytes % 11.4 H Eosinophils % 0.9 Basophils % 0.1 Nucleated Red Blood Cells % 0.0 Neutrophils # 8.4 H Lymphocytes # 1.4 Monocytes # 1.3 H Eosinophils # 0.1 Basophils # 0.0 Nucleated Red Blood Cells # 0.0 Sodium Level 145 H Potassium Level 4.0 Chloride Level 108 Carbon Dioxide Level 31 Anion Gap 10 # Blood Urea Nitrogen 50 H Creatinine 1.42 H Glucose Level 87 # Calcium Level 9.4 Magnesium Level 2.2 Blood Gas Specimen Source Blood arterial Arterial Blood Date Drawn 06/22/2017 8:20:04 AM Arterial Blood pH (Temp corrected) 7.309 L Arterial Blood pCO2 (Temp correct) 53.8 H Arterial Blood pO2 (Temp corrected) 123.8 H Arterial Blood HCO3 26.4 H Arterial Blood Base Excess -0.4 Arterial Blood Oxygen Saturation 98.1 [place] Test ACCEPTAB Arterial Blood Gas Puncture Site Right Radial Arterial Blood Carboxyhemoglobin 0.3 Arterial Blood Methemoglobin 0.3 Blood Gas A-a O2 Differential 5.1 L Oxyhemoglobin Percent 97.5 Total Hemoglobin 10.3 L Blood Gas Temperature 37.0 Blood Gas Modality NASAL CANNULA FiO2 27.0 Blood Gas Notified Whom DT Blood Gas Notified Time 06/22/2017 8:40:32 AM Test 06/22/17 09:41 Bedside Glucose 108 Medications Medications Current Medications Ondansetron HCl (Zofran Inj) 4 mg Q6H PRN IV NAUSEA AND/OR VOMITING Last administered on 06/16/17 00:28; Admin Dose 4 MG; Start 06/13/17 at 15:30 Acetaminophen (Tylenol Tab) 650 mg Q6H PRN PO PAIN LEVEL 1-3 OR FEVER Last administered on 06/22/17 04:22; Admin Dose 650 MG; Start 06/13/17 at 15:30 Docusate Sodium (Colace) 100 mg Q12H PRN PO CONSTIPATION; Start 06/13/17 at 15 :30 Magnesium Hydroxide (Milk Of Mag) 30 ml DAILY PRN PO CONSTIPATION; Start 06/13 at 15:30 Hydralazine HCl (Apresoline) 10 mg Q6H PRN IV ELEVATED BLOOD PRESSURE Last administered on 06/19/17 13:50; Admin Dose 10 MG; Start 06/13/17 at 15:30 Nitroglycerin (Nitroglycerin (Sl Tab) 0.4 Mg) 1 tab Q5M PRN SL ANGINA; Start 06/13/17 at 15:30 Aspirin (Aspirin) 325 mg DAILY PO Last administered on 06/22/17 09:41; Admin Dose 325 MG; Start 06/14/17 at 09:00 Atorvastatin Calcium (Lipitor) 10 mg HS PO Last administered on 06/16/17 21: 47; Admin Dose 10 MG; Start 06/13/17 at 21:00; Status Future Hold Levothyroxine Sodium (Synthroid) 100 mcg DAILY PO Last administered on 09:39; Admin Dose 100 MCG; Start 06/14/17 at 09:00 Montelukast Sodium (Singulair) 10 mg QHS PO Last administered on 06/21/17 20: 39; Admin Dose 10 MG; Start 06/13/17 at 21:00 Ranitidine HCl (Zantac) 150 mg HS PO Last administered on 06/21/17 20:39; Admin Dose 150 MG; Start 06/13/17 at 21:00 Insulin Glargine (Lantus) 10 unit DAILY@20 SC ; Start 06/14/17 at 20:00; Status Future Hold Diagnostic Test (Pha) (Accu-Chek) 1 ea 02 XX Last administered on 06/19/17 02 :18; Admin Dose 1 EA; Start 06/15/17 at 02:00 Miscellaneous Information 1 ea NOTE XX ; Start 06/14/17 at 06:00 Glucose (Glutose) 15 gm Q15M PRN PO DECREASED GLUCOSE; Start 06/14/17 at 06:00 Glucose (Glutose) 22.5 gm Q15M PRN PO DECREASED GLUCOSE; Start 06/14/17 at 06: 00 Dextrose (D50w Syringe) 25 ml Q15M PRN IV DECREASED GLUCOSE Last administered on 06/17/17 04:41; Admin Dose 25 ML; Start 06/14/17 at 06:00 Dextrose (D50w Syringe) 50 ml Q15M PRN IV DECREASED GLUCOSE; Start 06/14/17 at 06:00 Glucagon (Glucagen) 1 mg Q15M PRN IM DECREASED GLUCOSE; Start 06/14/17 at 06: 00 Glucose 15 gm 15 gm Q15M PRN BUCCAL DECREASED GLUCOSE; Start 06/14/17 at 06:00 Diltiazem HCl (Cardizem-D5W 125 Mg/125 ml Drip) 125 ml @ 0 mls/hr TITRATE IV Last administered on 06/19/17 16:59; Admin Dose 5 MLS/HR; Start 06/14/17 at 15:00 Sertraline HCl 50 mg 50 mg HS PO Last administered on 06/21/17 20:39; Admin Dose 50 MG; Start 06/15/17 at 21:00 Norepinephrine 250 ml @ 1.875 mls/ hr TITRATE IV Last administered on 00:34; Admin Dose 18.75 MLS/HR; Start 06/16/17 at 10:30 Dopamine HCl/ Dextrose 250 ml @ 5.325 mls/ hr TITRATE IV ; Start 06/16/17 at 11:00 Diltiazem HCl (Cardizem) 30 mg Q8 GTB Last administered on 06/22/17 05:58; Admin Dose 30 MG; Start 06/16/17 at 14:00 Enoxaparin Sodium (Lovenox) 60 mg DAILY SC Last administered on 06/22/17 09: 43; Admin Dose 60 MG; Start 06/17/17 at 09:00 IV Flush (NS 10 ml) 10 ml PRN PRN IV IV PROTOCOL; Start 06/16/17 at 14:00 Haloperidol (Haldol) 1 mg Q12 PRN IV agitation Last administered on 06/16/17 21:56; Admin Dose 1 MG; Start 06/16/17 at 20:30 Insulin Aspart NOVOLOG *MILD* ALGORI... Q4 SC Last administered on 06/20/17 21:06; Admin Dose 1 UNIT; Start 06/17/17 at 01:00 Propofol 100 ml @ 2.13 mls/hr Q12H IV Last administered on 06/20/17 05:03; Admin Dose 2.982 MLS/HR; Start 06/17/17 at 00:00 Midazolam HCl 50 ml @ 1 mls/hr TITRATE IV Last administered on 06/17/17 04:29 ; Admin Dose 10 MLS/HR; Start 06/17/17 at 00:30 Dextrose/Sodium Chloride (D5-NS) 1,000 ml @ 40 mls/hr Q24H IV Last administered on 06/22/17 00:31; Admin Dose 40 MLS/HR; Start 06/17/17 at 09:00 Hydrocortisone (Solu-Cortef) 40 mg DAILY IV Last administered on 06/22/17 09: 39; Admin Dose 40 MG; Start 06/19/17 at 21:00; Stop 06/23/17 at 09:00 Ampicillin (Ampicillin Susp (Ped)) 250 mg Q8 NGT Last administered on 05:58; Admin Dose 250 MG; Start 06/19/17 at 22:00 Metoprolol Tartrate (Lopressor) 50 mg BID PO Last administered on 06/22/17 09 :40; Admin Dose 50 MG; Start 06/19/17 at 21:00 Hydralazine HCl (Apresoline) 50 mg Q8 PO Last administered on 06/22/17 05:54 ; Admin Dose 50 MG; Start 06/21/17 at 14:00 EN BURNETTE Jun 22, 2017 11:40
[2017-06-22] MEDS: PROPOFOL 100 ML IV SCH (11:55)
--- NOTE | 2017-06-22 12:12 | CONS ---
Date/Time of Note Date/Time of Note DATE: 06/22/17 TIME: 12:10 Assessment/Plan Assessment/Plan Chief Complaint/Hosp Course IMP: 1.Hypotension-improved off of pressors/NL EF by echo this admit and now with HTN which is well controlled 2. AF with RVR-now well controlled HR 3. Renal failure 4. Hypercarbic resp failure s/p extubation-improved off BIPAP 5. Hypothyroid 6. Renal failure-ongoing Recc: -Tele in ICU -serial ecg's -Follow volume status closely -Continue lovenox QD/asa -Follow HR/BP/volume status closely -Continue BB/CCB/hydralazine and follow HR/BP closely Problems: Consultation Date/Type/Reason Admit Date/Time Jun 14, 2017 at 09:27 Initial Consult Date 06/15/17 Type of Consultation: cardiology Reason for Consultation AF Referring Provider: SARAH VINCENT Exam/Review of Systems Vital Signs Vitals Vital Signs Date Time Temp Pulse Resp B/P Pulse Ox O2 Delivery O2 Flow Rate FiO2 06/22/17 10:00 100 19 126/70 96 Nasal Cannula 06/22/17 08:00 2.0 06/22/17 08:00 97.8 06/22/17 02:58 30 Intake and Output 06/21/17 06/21/17 06/22/17 15:00 23:00 07:00 Intake Total 330 ml 200 ml 480 ml Output Total 305 ml 385 ml 390 ml Balance 25 ml -185 ml 90 ml Exam Review of Systems: CONSTITUTIONAL: No fevers, chills. PULMONARY: No sob CARDIOVASCULAR: No chest pain/palpitations GASTROINTESTINAL: No nausea/vomiting. GENITOURINARY: No hematuria/dysuria. MUSCULOSKELETAL: No myagias/arthalgias. PSYCHIATRIC: The patient denies depression. NEUROLOGIC: No weakness Constitutional: alert, oriented Psych: no complaints Head: normocephalic ENMT: mucosa pink and moist, other (NGT in place) Neck: jvd, supple Respiratory: diminished breath sounds (L>R base) Cardiovascular: irregular rhythm Gastrointestinal: non-tender, soft Musculoskeletal: muscle tone (normal) Extremities: edema (trace/B) Neurological: other (No focal deficits) Results Result Diagram: 06/22/17 0400 06/22/17 0400 Results 24 hrs Laboratory Tests Test 06/21/17 12:43 06/21/17 14:52 06/21/17 16:58 06/21/17 20:38 Bedside Glucose 127 136 108 Blood Gas Specimen Source Blood arterial Arterial Blood Date Drawn 06/21/2017 3:50:43 PM Arterial Blood pH (Temp corrected) 7.331 L Arterial Blood pCO2 (Temp correct) 48.6 H Arterial Blood pO2 (Temp corrected) 90.6 H Arterial Blood HCO3 25.1 Arterial Blood Base Excess -1.1 Arterial Blood Oxygen Saturation 96.5 Carlton Test N/A Arterial Blood Gas Puncture Site Right Brachial Arterial Blood Carboxyhemoglobin 0.3 Arterial Blood Methemoglobin 0.1 Blood Gas A-a O2 Differential 66.2 H Oxyhemoglobin Percent 96.1 Total Hemoglobin 11.3 L Blood Gas Temperature 37.0 Blood Gas Respiration Rate 18.0 Blood Gas Actual Respiration Rate 18 Blood Gas Modality MASK - BIPAP FiO2 30.0 Blood Gas Pressure Support 10 Blood Gas Critical Value Read Back Yareli SOUSA RN Blood Gas Notified Whom RDIX Blood Gas Notified Time 06/21/2017 4:06:34 PM Test 06/22/17 01:43 06/22/17 04:00 06/22/17 04:47 06/22/17 07:26 Bedside Glucose 89 87 White Blood Count 11.3 H Red Blood Count 3.16 L Hemoglobin 9.4 L Hematocrit 30.4 L Mean Corpuscular Volume 96.2 Mean Corpuscular Hemoglobin 29.7 Mean Corpuscular Hemoglobin Concent 30.9 L Red Cell Distribution Width 14.4 Platelet Count 249 Mean Platelet Volume 10.4 Neutrophils % 74.2 Lymphocytes % 12.7 L Monocytes % 11.4 H Eosinophils % 0.9 Basophils % 0.1 Nucleated Red Blood Cells % 0.0 Neutrophils # 8.4 H Lymphocytes # 1.4 Monocytes # 1.3 H Eosinophils # 0.1 Basophils # 0.0 Nucleated Red Blood Cells # 0.0 Sodium Level 145 H Potassium Level 4.0 Chloride Level 108 Carbon Dioxide Level 31 Anion Gap 10 # Blood Urea Nitrogen 50 H Creatinine 1.42 H Glucose Level 87 # Calcium Level 9.4 Magnesium Level 2.2 Blood Gas Specimen Source Blood arterial Arterial Blood Date Drawn 06/22/2017 8:20:04 AM Arterial Blood pH (Temp corrected) 7.309 L Arterial Blood pCO2 (Temp correct) 53.8 H Arterial Blood pO2 (Temp corrected) 123.8 H Arterial Blood HCO3 26.4 H Arterial Blood Base Excess -0.4 Arterial Blood Oxygen Saturation 98.1 Carlton Test ACCEPTAB Arterial Blood Gas Puncture Site Right Radial Arterial Blood Carboxyhemoglobin 0.3 Arterial Blood Methemoglobin 0.3 Blood Gas A-a O2 Differential 5.1 L Oxyhemoglobin Percent 97.5 Total Hemoglobin 10.3 L Blood Gas Temperature 37.0 Blood Gas Modality NASAL CANNULA FiO2 27.0 Blood Gas Notified Whom DT Blood Gas Notified Time 06/22/2017 8:40:32 AM Test 06/22/17 09:41 Bedside Glucose 108 Medications Medications Current Medications Ondansetron HCl (Zofran Inj) 4 mg Q6H PRN IV NAUSEA AND/OR VOMITING Last administered on 06/16/17 00:28; Admin Dose 4 MG; Start 06/13/17 at 15:30 Acetaminophen (Tylenol Tab) 650 mg Q6H PRN PO PAIN LEVEL 1-3 OR FEVER Last administered on 06/22/17 04:22; Admin Dose 650 MG; Start 06/13/17 at 15:30 Docusate Sodium (Colace) 100 mg Q12H PRN PO CONSTIPATION; Start 06/13/17 at 15 :30 Magnesium Hydroxide (Milk Of Mag) 30 ml DAILY PRN PO CONSTIPATION; Start 06/13 at 15:30 Hydralazine HCl (Apresoline) 10 mg Q6H PRN IV ELEVATED BLOOD PRESSURE Last administered on 06/19/17 13:50; Admin Dose 10 MG; Start 06/13/17 at 15:30 Nitroglycerin (Nitroglycerin (Sl Tab) 0.4 Mg) 1 tab Q5M PRN SL ANGINA; Start 06/13/17 at 15:30 Aspirin (Aspirin) 325 mg DAILY PO Last administered on 06/22/17 09:41; Admin Dose 325 MG; Start 06/14/17 at 09:00 Atorvastatin Calcium (Lipitor) 10 mg HS PO Last administered on 06/16/17 21: 47; Admin Dose 10 MG; Start 06/13/17 at 21:00; Status Future Hold Levothyroxine Sodium (Synthroid) 100 mcg DAILY PO Last administered on 09:39; Admin Dose 100 MCG; Start 06/14/17 at 09:00 Montelukast Sodium (Singulair) 10 mg QHS PO Last administered on 06/21/17 20: 39; Admin Dose 10 MG; Start 06/13/17 at 21:00 Ranitidine HCl (Zantac) 150 mg HS PO Last administered on 06/21/17 20:39; Admin Dose 150 MG; Start 06/13/17 at 21:00 Insulin Glargine (Lantus) 10 unit DAILY@20 SC ; Start 06/14/17 at 20:00; Status Future Hold Diagnostic Test (Pha) (Accu-Chek) 1 ea 02 XX Last administered on 06/19/17 02 :18; Admin Dose 1 EA; Start 06/15/17 at 02:00 Miscellaneous Information 1 ea NOTE XX ; Start 06/14/17 at 06:00 Glucose (Glutose) 15 gm Q15M PRN PO DECREASED GLUCOSE; Start 06/14/17 at 06:00 Glucose (Glutose) 22.5 gm Q15M PRN PO DECREASED GLUCOSE; Start 06/14/17 at 06: 00 Dextrose (D50w Syringe) 25 ml Q15M PRN IV DECREASED GLUCOSE Last administered on 06/17/17 04:41; Admin Dose 25 ML; Start 06/14/17 at 06:00 Dextrose (D50w Syringe) 50 ml Q15M PRN IV DECREASED GLUCOSE; Start 06/14/17 at 06:00 Glucagon (Glucagen) 1 mg Q15M PRN IM DECREASED GLUCOSE; Start 06/14/17 at 06: 00 Glucose 15 gm 15 gm Q15M PRN BUCCAL DECREASED GLUCOSE; Start 06/14/17 at 06:00 Diltiazem HCl (Cardizem-D5W 125 Mg/125 ml Drip) 125 ml @ 0 mls/hr TITRATE IV Last administered on 06/19/17 16:59; Admin Dose 5 MLS/HR; Start 06/14/17 at 15:00 Sertraline HCl 50 mg 50 mg HS PO Last administered on 06/21/17 20:39; Admin Dose 50 MG; Start 06/15/17 at 21:00 Norepinephrine 250 ml @ 1.875 mls/ hr TITRATE IV Last administered on 00:34; Admin Dose 18.75 MLS/HR; Start 06/16/17 at 10:30 Dopamine HCl/ Dextrose 250 ml @ 5.325 mls/ hr TITRATE IV ; Start 06/16/17 at 11:00 Diltiazem HCl (Cardizem) 30 mg Q8 GTB Last administered on 06/22/17 05:58; Admin Dose 30 MG; Start 06/16/17 at 14:00 Enoxaparin Sodium (Lovenox) 60 mg DAILY SC Last administered on 06/22/17 09: 43; Admin Dose 60 MG; Start 06/17/17 at 09:00 IV Flush (NS 10 ml) 10 ml PRN PRN IV IV PROTOCOL; Start 06/16/17 at 14:00 Haloperidol (Haldol) 1 mg Q12 PRN IV agitation Last administered on 06/16/17 21:56; Admin Dose 1 MG; Start 06/16/17 at 20:30 Insulin Aspart NOVOLOG *MILD* ALGORI... Q4 SC Last administered on 06/20/17 21:06; Admin Dose 1 UNIT; Start 06/17/17 at 01:00 Propofol 100 ml @ 2.13 mls/hr Q12H IV Last administered on 06/20/17 05:03; Admin Dose 2.982 MLS/HR; Start 06/17/17 at 00:00 Midazolam HCl 50 ml @ 1 mls/hr TITRATE IV Last administered on 06/17/17 04:29 ; Admin Dose 10 MLS/HR; Start 06/17/17 at 00:30 Dextrose/Sodium Chloride (D5-NS) 1,000 ml @ 40 mls/hr Q24H IV Last administered on 06/22/17 00:31; Admin Dose 40 MLS/HR; Start 06/17/17 at 09:00 Hydrocortisone (Solu-Cortef) 40 mg DAILY IV Last administered on 06/22/17 09: 39; Admin Dose 40 MG; Start 06/19/17 at 21:00; Stop 06/23/17 at 09:00 Ampicillin (Ampicillin Susp (Ped)) 250 mg Q8 NGT Last administered on 05:58; Admin Dose 250 MG; Start 06/19/17 at 22:00 Metoprolol Tartrate (Lopressor) 50 mg BID PO Last administered on 06/22/17 09 :40; Admin Dose 50 MG; Start 06/19/17 at 21:00 Hydralazine HCl (Apresoline) 50 mg Q8 PO Last administered on 06/22/17t 05:54 ; Admin Dose 50 MG; Start 06/21/17 at 14:00 WEN GOFF Jun 22, 2017 12:12
[2017-06-22] MEDS: RANITIDINE 150 MG TAB PO SCH (21:36)
[2017-06-22] MEDS: MONTELUKAST 10 MG TAB PO SCH (21:36)
[2017-06-22] MEDS: SERTRALINE 100 MG TAB PO SCH (21:43)
[2017-06-23] VITALS (18 sets, daily range): BP systolic 132–192; BP diastolic 62–95; PULSE 38–106; RESP 12–20
[2017-06-23] MEDS: INSULIN ASPART [NOVOLOG] 3 ML PEN SC SCH ×6 (01:00→20:02)
[2017-06-23] MEDS: ACCU-CHEK XX SCH (02:00)
--- NOTE | 2017-06-23 05:57 | PN ---
DATE: 06/22/2017 SUBJECTIVE: The patient without complaint sleeping comfortably. OBJECTIVE: VITAL SIGNS: Temperature 98.1, pulse 89, was maximum was 120, respirations 20, blood pressure 144/6 5, oxygen saturation 98% on 30% FIO2 with BiPAP. CHEST: Clear to auscultation bilaterally, decreased breath sounds bilateral bases. HEART: Tachycardic, regular. ABDOMEN: Soft, nontender, normoactive bowel sounds. EXTREMITIES: No cyanosis, clubbing. Trace bilateral lower extremity edema. NEUROLOGIC: Nonfocal. LABORATORY DATA: Sodium 145, potassium 4.0, chloride 108, bicarbonate 31, BUN 50, creatinine 1.42, blood sugar of 87, magnesium 2.2, calcium 9.4, hemoglobin 9.4, hematocrit 30.4, white blood cell cou nt 11.3, platelets 249. Arterial blood gas with a pH of 7.309, pCO2 of 52.8, pO2 of 123.8, oxygen s aturation 98.1 this is done on nasal cannula oxygen FIO2 of 27%. ASSESSMENT AND PLAN 1. Acute respiratory failure with hypercapnia. The patient remains improved but reliant on the BiP AP. Patient most likely with obesity hypoventilation syndrome produces for her hypercapnia. Contin ue with current measures. 2. Atrial fibrillation, stable. The patient continues to have runs of rapid ventricular rate with her atrial fibrillation. We will continue to adjust medications for rate control and continue the p atient on telemetry. 3. Coronary artery disease/hypertension improved. We will continue with medications and adjust blo od pressure medications as needed. 4. Diabetes, stable. Continue with sliding scale on Lantus as diet is advanced. 5. Acute on chronic kidney disease, improved. Continue to monitor patient's BUN and creatinine. N o further measures need to be done at this time. 6. Anemia, stable. Continue to monitor. 7. Urinary tract infection, stable. Continue the patient's antibiotics. Dictated By: MORGAN SNOW MD SR/TAZ Conf#: [id number] DID#: [id number]
[2017-06-23] MEDS: DILTIAZEM 60 MG TAB GTB SCH ×3 (05:58→21:46)
[2017-06-23] MEDS: AMPICILLIN NGT SCH ×4 (05:58→21:43)
[2017-06-23 06:54] LABS: BASOPHILS % 0.1 % (0.0-2.0); EOSINOPHILS # 0.1 10^3/ul (0.0-0.5); EOSINOPHILS % 0.5 % (0.0-7.0); HEMATOCRIT 30.7 % (37.0-47.0); HEMOGLOBIN 9.5 g/dl (12.0-16.0); LYMPHOCYTES # 1.1 10^3/ul (0.8-2.9); MEAN CORPUSCULAR HEMOGLOBIN 30.3 pg (29.0-33.0); MEAN CORPUSCULAR HGB CONC 30.9 g/dl (32.0-37.0); MEAN CORPUSCULAR VOLUME 97.8 fl (82.0-101.0); MEAN PLATELET VOLUME 10.1 fl (7.4-10.4); MONOCYTE # 1.1 10^3/ul (0.3-0.9); MONOCYTES % 7.8 % (0.0-11.0); NEUTROPHIL # 11.3 10^3/ul (1.6-7.5); NEUTROPHILS % 83.2 % (39.0-77.0); PLATELET COUNT 257 10^3/UL (140-415); RED BLOOD COUNT 3.14 10^6/ul (4.20-5.40); RED CELL DISTRIBUTION WIDTH 14.5 % (11.5-14.5); WHITE BLOOD COUNT 13.6 10^3/ul (4.8-10.8)
[2017-06-23 08:12] LABS: CALCIUM 9.5 mg/dl (8.4-10.2); CREATININE 1.28 mg/dl (0.44-1.00); MAGNESIUM 2.3 mg/dl (1.7-2.5); POTASSIUM 4.5 mmol/L (3.5-5.1)
[2017-06-23] MEDS: LEVOTHYROXINE 100 MCG TAB PO SCH (08:21)
[2017-06-23] MEDS: METOPROLOL 50 MG TAB PO SCH ×2 (08:21→20:02)
[2017-06-23] MEDS: ASPIRIN 325 MG TAB PO SCH (08:21)
[2017-06-23] MEDS: HYDROCORTISONE 100 MG INJ IV SCH (08:22)
[2017-06-23] MEDS: hydrALAzine 20 MG INJ IV PRN (08:23)
[2017-06-23] MEDS: ENOXAPARIN 60 MG/0.6 ML SYG SC SCH (08:30)
--- NOTE | 2017-06-23 09:15 | PN ---
DATE: 06/23/2017 SUBJECTIVE: Patient is feeling better, has good appetite, no pain in the chest, but feels achy in h er muscles over her body. OBJECTIVE: VITAL SIGNS: Temperature 98.0, pulse of 100, respirations 20, blood pressure 157/93, oxygen saturat ion 98% on 2 liter nasal cannula oxygen. CHEST: Clear to auscultation bilaterally with decreased breath sounds in the bases. HEART: Tachycardic and irregular. ABDOMEN: Soft, nontender, nondistended. EXTREMITIES: No cyanosis, clubbing. There is trace edema. NEUROLOGIC: Nonfocal. LABORATORY DATA: White blood cell count 13.6, hemoglobin 9.5, hematocrit 30.7, platelets 257, chemi stry and magnesium are pending at this time. ASSESSMENT AND PLAN 1. Acute respiratory failure with hypercapnia remains improved. Patient, however, is having to rel y on BiPAP. Patient has a component of hypoventilation. We will continue to encourage deep breathi ng. Patient may benefit from pulmonary rehabilitation after discharge. 2. Atrial fibrillation improved but still tachycardic. We will continue to adjust medications as n eeded. 3. Hypertension/coronary artery disease. The patient continues to have labile blood pressure. We will continue to adjust medications as needed. 4. Diabetes remains stable on current medications and diet with sliding scale. 5. Acute on chronic kidney disease. Remains stable. We will continue to monitor. The patient see ms to have fully recovered from her hypotensive episodes and acute tubular necrosis. 6. Urinary tract infection remains stable on antibiotics. Will continue. Dictated By: MORGAN SNOW MD SR/TAZ Conf#: [id number] DID#: [id number]
--- NOTE | 2017-06-23 12:08 | CONS ---
Date/Time of Note Date/Time of Note DATE: 06/23/17 TIME: 12:01 Assessment/Plan Assessment/Plan Chief Complaint/Hosp Course IMP: 1.Hypotension-improved off of pressors/NL EF by echo this admit and now with HTN which is now uncontrolled 2. AF with RVR-now well controlled HR 3. Renal failure 4. Hypercarbic resp failure s/p extubation-improved off BIPAP 5. Hypothyroid 6. Renal failure-ongoing Recc: -Tele in ICU -serial ecg's -Follow volume status closely -Continue lovenox QD/asa -Follow HR/BP/volume status closely -Continue BB -Increase diltiazem and hydralazine to improve BP and HR control Problems: Consultation Date/Type/Reason Admit Date/Time Jun 14, 2017 at 09:27 Initial Consult Date 06/15/17 Type of Consultation: cardiology Reason for Consultation AF Referring Provider: SARAH VINCENT Exam/Review of Systems Vital Signs Vitals Vital Signs Date Time Temp Pulse Resp B/P Pulse Ox O2 Delivery O2 Flow Rate FiO2 06/23/17 11:58 98.7 94 19 144/80 97 06/23/17 08:00 Nasal Cannula 06/23/17 02:33 30 06/23/17 01:18 2.0 Intake and Output 06/22/17 06/22/17 06/23/17 15:00 23:00 07:00 Intake Total 100 ml 800 ml 200 ml Output Total 265 ml 1200 ml Balance -165 ml 800 ml -1000 ml Exam Review of Systems: CONSTITUTIONAL: No fevers, chills. PULMONARY: No sob CARDIOVASCULAR: No chest pain/palpitations GASTROINTESTINAL: No nausea/vomiting. GENITOURINARY: No hematuria/dysuria. MUSCULOSKELETAL: No myagias/arthalgias. PSYCHIATRIC: The patient denies depression. NEUROLOGIC: No weakness Constitutional: alert Psych: no complaints Head: normocephalic ENMT: mucosa pink and moist Neck: jvd, supple Respiratory: diminished breath sounds (at bases) Cardiovascular: regular rate and rhythm Gastrointestinal: non-tender, soft Musculoskeletal: muscle tone (normal) Extremities: edema (none) Neurological: other (No focal deficits) Results Result Diagram: 06/23/17 0618 06/23/17 0618 Results 24 hrs Laboratory Tests Test 06/22/17 15:17 06/22/17 17:58 06/22/17 21:26 06/23/17 01:11 Bedside Glucose 132 153 104 95 Test 06/23/17 05:54 06/23/17 06:18 06/23/17 08:20 Bedside Glucose 112 124 White Blood Count 13.6 #H Red Blood Count 3.14 L Hemoglobin 9.5 L Hematocrit 30.7 L Mean Corpuscular Volume 97.8 Mean Corpuscular Hemoglobin 30.3 Mean Corpuscular Hemoglobin Concent 30.9 L Red Cell Distribution Width 14.5 Platelet Count 257 Mean Platelet Volume 10.1 Neutrophils % 83.2 H Lymphocytes % 8.0 L Monocytes % 7.8 Eosinophils % 0.5 Basophils % 0.1 Nucleated Red Blood Cells % 0.0 Neutrophils # 11.3 H Lymphocytes # 1.1 Monocytes # 1.1 H Eosinophils # 0.1 Basophils # 0.0 Nucleated Red Blood Cells # 0.0 Sodium Level 147 H Potassium Level 4.5 Chloride Level 111 H Carbon Dioxide Level 28 Anion Gap 13 Blood Urea Nitrogen 48 H Creatinine 1.28 H Glucose Level 120 Calcium Level 9.5 Magnesium Level 2.3 Medications Medications Current Medications Ondansetron HCl (Zofran Inj) 4 mg Q6H PRN IV NAUSEA AND/OR VOMITING Last administered on 06/16/17 00:28; Admin Dose 4 MG; Start 06/13/17 at 15:30 Acetaminophen (Tylenol Tab) 650 mg Q6H PRN PO PAIN LEVEL 1-3 OR FEVER Last administered on 06/22/17 04:22; Admin Dose 650 MG; Start 06/13/17 at 15:30 Docusate Sodium (Colace) 100 mg Q12H PRN PO CONSTIPATION; Start 06/13/17 at 15 :30 Magnesium Hydroxide (Milk Of Mag) 30 ml DAILY PRN PO CONSTIPATION; Start 06/13 at 15:30 Hydralazine HCl (Apresoline) 10 mg Q6H PRN IV ELEVATED BLOOD PRESSURE Last administered on 06/23/17 08:23; Admin Dose 10 MG; Start 06/13/17 at 15:30 Nitroglycerin (Nitroglycerin (Sl Tab) 0.4 Mg) 1 tab Q5M PRN SL ANGINA; Start 06/13/17 at 15:30 Aspirin (Aspirin) 325 mg DAILY PO Last administered on 11/20/17at 08:21; Admin Dose 325 MG; Start 06/14/17 at 09:00 Atorvastatin Calcium (Lipitor) 10 mg HS PO Last administered on 06/16/17 21: 47; Admin Dose 10 MG; Start 06/13/17 at 21:00; Status Future Hold Levothyroxine Sodium (Synthroid) 100 mcg DAILY PO Last administered on 08:21; Admin Dose 100 MCG; Start 06/14/17 at 09:00 Montelukast Sodium (Singulair) 10 mg QHS PO Last administered on 06/22/17 21: 36; Admin Dose 10 MG; Start 06/13/17 at 21:00 Ranitidine HCl (Zantac) 150 mg HS PO Last administered on 06/22/17 21:36; Admin Dose 150 MG; Start 06/13/17 at 21:00 Insulin Glargine (Lantus) 10 unit DAILY@20 SC ; Start 06/14/17 at 20:00; Status Future Hold Diagnostic Test (Pha) (Accu-Chek) 1 ea 02 XX Last administered on 06/19/17 02 :18; Admin Dose 1 EA; Start 06/15/17 at 02:00 Miscellaneous Information 1 ea NOTE XX ; Start 06/14/17 at 06:00 Glucose (Glutose) 15 gm Q15M PRN PO DECREASED GLUCOSE; Start 06/14/17 at 06:00 Glucose (Glutose) 22.5 gm Q15M PRN PO DECREASED GLUCOSE; Start 06/14/17 at 06: 00 Dextrose (D50w Syringe) 25 ml Q15M PRN IV DECREASED GLUCOSE Last administered on 06/17/17 04:41; Admin Dose 25 ML; Start 06/14/17 at 06:00 Dextrose (D50w Syringe) 50 ml Q15M PRN IV DECREASED GLUCOSE; Start 06/14/17 at 06:00 Glucagon (Glucagen) 1 mg Q15M PRN IM DECREASED GLUCOSE; Start 06/14/17 at 06: 00 Glucose 15 gm 15 gm Q15M PRN BUCCAL DECREASED GLUCOSE; Start 06/14/17 at 06:00 Diltiazem HCl (Cardizem-D5W 125 Mg/125 ml Drip) 125 ml @ 0 mls/hr TITRATE IV Last administered on 06/19/17 16:59; Admin Dose 5 MLS/HR; Start 06/14/17 at 15:00 Sertraline HCl (Zoloft) 50 mg HS PO Last administered on 06/22/17 21:43; Admin Dose 50 MG; Start 06/15/17 at 21:00 Diltiazem HCl (Cardizem) 30 mg Q8 GTB Last administered on 06/23/17 05:58; Admin Dose 30 MG; Start 06/16/17 at 14:00 Enoxaparin Sodium (Lovenox) 60 mg DAILY SC Last administered on 06/23/17 08: 30; Admin Dose 60 MG; Start 06/17/17 at 09:00 IV Flush (NS 10 ml) 10 ml PRN PRN IV IV PROTOCOL; Start 06/16/17 at 14:00 Haloperidol (Haldol) 1 mg Q12 PRN IV agitation Last administered on 06/16/17 21:56; Admin Dose 1 MG; Start 06/16/17 at 20:30 Insulin Aspart NOVOLOG *MILD* ALGORI... Q4 SC Last administered on 06/22/17 17:10; Admin Dose 1 UNIT; Start 06/17/17 at 01:00 Dextrose/Sodium Chloride (D5-NS) 1,000 ml @ 40 mls/hr Q24H IV Last administered on 06/22/17 00:31; Admin Dose 40 MLS/HR; Start 06/17/17 at 09:00 Ampicillin (Ampicillin Susp (Ped)) 250 mg Q8 NGT Last administered on 05:58; Admin Dose 250 MG; Start 06/19/17 at 22:00 Metoprolol Tartrate (Lopressor) 50 mg BID PO Last administered on 06/23/17 08 :21; Admin Dose 50 MG; Start 06/19/17 at 21:00 Hydralazine HCl (Apresoline) 50 mg Q8 PO Last administered on 06/23/17 05:59 ; Admin Dose 50 MG; Start 06/21/17 at 14:00 WEN GOFF 20, 2017 12:08
--- NOTE | 2017-06-23 14:18 | CONS ---
Date/Time of Note Date/Time of Note DATE: 06/23/17 TIME: 14:16 Consult Date/Type/Reason Admit Date/Time Jun 14, 2017 at 09:27 Type of Consultation: Pulmonary Ordering Provider: SARAH VINCENT Subjective Patient easily arousable. Still somewhat lethargic however. Daughter at bedside. Daughter states patient did not sleep at all. Objective Vital Signs Date Time Temp Pulse Resp B/P Pulse Ox O2 Delivery O2 Flow Rate FiO2 06/23/17 12:09 85 06/23/17 11:58 98.7 19 144/80 97 06/23/17 08:00 Nasal Cannula 06/23/17 02:33 30 06/23/17 01:18 2.0 Intake and Output 06/22/17 06/22/17 06/23/17 15:00 23:00 07:00 Intake Total 100 ml 800 ml 200 ml Output Total 265 ml 1200 ml Balance -165 ml 800 ml -1000 ml Exam PHYSICAL EXAMINATION: GENERAL: Chronically ill appearing lady, comfortable at rest,s. VITAL SIGNS: Nasal cannula oxygen NECK: Supple. No JVD or lymphadenopathy. CARDIAC: S1, S2, no added sounds or murmurs. CHEST: Diminished air entry bilaterally. ABDOMEN: Soft, nontender. No guarding or rebound. EXTREMITIES: No cyanosis, clubbing. Edema +1. NEUROLOGIC: Generalized weakness. Results/Medications Result Diagram: 06/23/1718 06/23/1718 Results 24 hrs Laboratory Tests Test 06/22/17 15:17 06/22/17 17:58 06/22/17 21:26 06/23/17 01:11 Bedside Glucose 132 153 104 95 Test 06/23/17 05:54 06/23/17 06:18 06/23/17 08:20 06/23/17 11:55 Bedside Glucose 112 124 154 White Blood Count 13.6 #H Red Blood Count 3.14 L Hemoglobin 9.5 L Hematocrit 30.7 L Mean Corpuscular Volume 97.8 Mean Corpuscular Hemoglobin 30.3 Mean Corpuscular Hemoglobin Concent 30.9 L Red Cell Distribution Width 14.5 Platelet Count 257 Mean Platelet Volume 10.1 Neutrophils % 83.2 H Lymphocytes % 8.0 L Monocytes % 7.8 Eosinophils % 0.5 Basophils % 0.1 Nucleated Red Blood Cells % 0.0 Neutrophils # 11.3 H Lymphocytes # 1.1 Monocytes # 1.1 H Eosinophils # 0.1 Basophils # 0.0 Nucleated Red Blood Cells # 0.0 Sodium Level 147 H Potassium Level 4.5 Chloride Level 111 H Carbon Dioxide Level 28 Anion Gap 13 Blood Urea Nitrogen 48 H Creatinine 1.28 H Glucose Level 120 Calcium Level 9.5 Magnesium Level 2.3 Medications Current Medications Ondansetron HCl (Zofran Inj) 4 mg Q6H PRN IV NAUSEA AND/OR VOMITING Last administered on 06/16/17 00:28; Admin Dose 4 MG; Start 06/13/17 at 15:30 Acetaminophen (Tylenol Tab) 650 mg Q6H PRN PO PAIN LEVEL 1-3 OR FEVER Last administered on 06/22/17 04:22; Admin Dose 650 MG; Start 06/13/17 at 15:30 Docusate Sodium (Colace) 100 mg Q12H PRN PO CONSTIPATION; Start 06/13/17 at 15 :30 Magnesium Hydroxide (Milk Of Mag) 30 ml DAILY PRN PO CONSTIPATION; Start 06/13 at 15:30 Hydralazine HCl (Apresoline) 10 mg Q6H PRN IV ELEVATED BLOOD PRESSURE Last administered on 06/23/17 08:23; Admin Dose 10 MG; Start 06/13/17 at 15:30 Nitroglycerin (Nitroglycerin (Sl Tab) 0.4 Mg) 1 tab Q5M PRN SL ANGINA; Start 06/13/17 at 15:30 Aspirin (Aspirin) 325 mg DAILY PO Last administered on 06/23/17 08:21; Admin Dose 325 MG; Start 06/14/17 at 09:00 Atorvastatin Calcium (Lipitor) 10 mg HS PO Last administered on 06/16/17 21: 47; Admin Dose 10 MG; Start 06/13/17 at 21:00; Status Future Hold Levothyroxine Sodium (Synthroid) 100 mcg DAILY PO Last administered on 08:21; Admin Dose 100 MCG; Start 06/14/17 at 09:00 Montelukast Sodium (Singulair) 10 mg QHS PO Last administered on 06/22/17 21: 36; Admin Dose 10 MG; Start 06/13/17 at 21:00 Ranitidine HCl (Zantac) 150 mg HS PO Last administered on 06/22/17 21:36; Admin Dose 150 MG; Start 06/13/17 at 21:00 Insulin Glargine (Lantus) 10 unit DAILY@20 SC ; Start 06/14/17 at 20:00; Status Future Hold Diagnostic Test (Pha) (Accu-Chek) 1 ea 02 XX Last administered on 06/19/17 02 :18; Admin Dose 1 EA; Start 06/15/17 at 02:00 Miscellaneous Information 1 ea NOTE XX ; Start 06/14/17 at 06:00 Glucose (Glutose) 15 gm Q15M PRN PO DECREASED GLUCOSE; Start 06/14/17 at 06:00 Glucose (Glutose) 22.5 gm Q15M PRN PO DECREASED GLUCOSE; Start 06/14/17 at 06: 00 Dextrose (D50w Syringe) 25 ml Q15M PRN IV DECREASED GLUCOSE Last administered on 06/17/17 04:41; Admin Dose 25 ML; Start 06/14/17 at 06:00 Dextrose (D50w Syringe) 50 ml Q15M PRN IV DECREASED GLUCOSE; Start 06/14/17 at 06:00 Glucagon (Glucagen) 1 mg Q15M PRN IM DECREASED GLUCOSE; Start 06/14/17 at 06: 00 Glucose 15 gm 15 gm Q15M PRN BUCCAL DECREASED GLUCOSE; Start 06/14/17 at 06:00 Diltiazem HCl (Cardizem-D5W 125 Mg/125 ml Drip) 125 ml @ 0 mls/hr TITRATE IV Last administered on 06/19/17 16:59; Admin Dose 5 MLS/HR; Start 06/14/17 at 15:00 Sertraline HCl (Zoloft) 50 mg HS PO Last administered on 06/22/17 21:43; Admin Dose 50 MG; Start 06/15/17 at 21:00 Enoxaparin Sodium (Lovenox) 60 mg DAILY SC Last administered on 06/23/17 08: 30; Admin Dose 60 MG; Start 06/17/17 at 09:00 IV Flush (NS 10 ml) 10 ml PRN PRN IV IV PROTOCOL; Start 06/16/17 at 14:00 Haloperidol (Haldol) 1 mg Q12 PRN IV agitation Last administered on 06/16/17 21:56; Admin Dose 1 MG; Start 06/16/17 at 20:30 Insulin Aspart NOVOLOG *MILD* ALGORI... Q4 SC Last administered on 06/23/17 12:36; Admin Dose 1 UNIT; Start 06/17/17 at 01:00 Dextrose/Sodium Chloride (D5-NS) 1,000 ml @ 40 mls/hr Q24H IV Last administered on 06/22/17 00:31; Admin Dose 40 MLS/HR; Start 06/17/17 at 09:00 Ampicillin (Ampicillin Susp (Ped)) 250 mg Q8 NGT Last administered on 05:58; Admin Dose 250 MG; Start 06/19/17 at 22:00 Metoprolol Tartrate (Lopressor) 50 mg BID PO Last administered on 06/23/17 08 :21; Admin Dose 50 MG; Start 06/19/17 at 21:00 Hydralazine HCl (Apresoline) 50 mg Q8 PO Last administered on 06/23/17 05:59 ; Admin Dose 50 MG; Start 06/21/17 at 14:00 Diltiazem HCl (Cardizem) 60 mg Q8 GTB ; Start 06/23/17 at 14:00 Assessment/Plan Chief Complaint/Hosp Course IMPRESSION: 1. Acute hypercapnic respiratory failure, now intubated on mechanical ventilation. Chest x-ray demonstrates a moderate to large right pleural effusion. Status post thoracentesis. Still with mild hypoxemia. Likely secondary to alveolar hypoventilation and venous congestion. 2. History of hypertension. 3. Atrial fibrillation with rapid ventricular rate. Currently rate controlled. 4. Diabetes mellitus. 5. Status post shock. 6. Acute renal failure. Likely ATN injury. Renal function appears to be stabilizing. Plan 1. Nocturnal noninvasive positive pressure ventilation 2. Vasopressors as needed to keep MAP > 65 3. Hold sedation if tolerated. 4. Deep venous thrombosis and gastrointestinal prophylaxis. 5. Physical therapy as tolerated 6. Aspiration precautions 7. Renal recommendations Problems: YAZMIN VARGAS MD, [facility] Jun 23, 2017 14:18
[2017-06-23] MEDS: DEXTROSE 5%-0.9% NACL 1,000 ML IV SCH (15:18)
[2017-06-23] MEDS: RANITIDINE 150 MG TAB PO SCH (20:01)
[2017-06-23] MEDS: MONTELUKAST 10 MG TAB PO SCH (20:01)
[2017-06-23] MEDS: SERTRALINE 100 MG TAB PO SCH (20:01)
[2017-06-24] VITALS (16 sets, daily range): BP systolic 135–158; BP diastolic 68–74; PULSE 55–120; RESP 18–22
[2017-06-24] MEDS: INSULIN ASPART [NOVOLOG] 3 ML PEN SC SCH ×6 (02:00→20:40)
[2017-06-24] MEDS: ACCU-CHEK XX SCH (02:03)
[2017-06-24] MEDS: AMPICILLIN NGT SCH ×2 (05:39→17:08)
[2017-06-24] MEDS: DEXTROSE 5%-0.9% NACL 1,000 ML IV SCH ×2 (06:26→15:18)
[2017-06-24 08:05] LABS: BASOPHILS % 0.1 % (0.0-2.0); EOSINOPHILS % 0.3 % (0.0-7.0); HEMATOCRIT 29.6 % (37.0-47.0); HEMOGLOBIN 8.8 g/dl (12.0-16.0); LYMPHOCYTES # 0.9 10^3/ul (0.8-2.9); LYMPHOCYTES % 6.8 % (15.0-51.0); MEAN CORPUSCULAR HEMOGLOBIN 29.5 pg (29.0-33.0); MEAN CORPUSCULAR HGB CONC 29.7 g/dl (32.0-37.0); MEAN CORPUSCULAR VOLUME 99.3 fl (82.0-101.0); MONOCYTES % 7.9 % (0.0-11.0); NEUTROPHIL # 10.6 10^3/ul (1.6-7.5); NEUTROPHILS % 84.3 % (39.0-77.0); PLATELET COUNT 220 10^3/UL (140-415); RED BLOOD COUNT 2.98 10^6/ul (4.20-5.40); RED CELL DISTRIBUTION WIDTH 14.5 % (11.5-14.5); WHITE BLOOD COUNT 12.5 10^3/ul (4.8-10.8)
[2017-06-24 08:26] LABS: Allen Test ACCEPTAB; Arterial Base Excess 0.8 mmol/L (-3.0-3); Arterial COHb 0.1 % (0.0-3.0); Arterial Fraction of Oxyhgb 98.5 % (93.0-99.0); Arterial HCO3 29.2 mmol/L (22.0-26.0); Arterial MetHb 0.2 % (0.0-1.5); Arterial Total Hemglobin 10.2 g/dl (12.0-18.0); MODE NASAL CANNULA
[2017-06-24 08:38] LABS: CALCIUM 9.3 mg/dl (8.4-10.2); CREATININE 1.34 mg/dl (0.44-1.00); MAGNESIUM 2.3 mg/dl (1.7-2.5); POTASSIUM 4.4 mmol/L (3.5-5.1)
--- NOTE | 2017-06-24 08:42 | PN ---
DATE: 06/24/2017 SUBJECTIVE: The patient without complaints. OBJECTIVE: VITAL SIGNS: Temperature 98.0, pulse 76 and irregular, blood pressure 158/68, oxygen saturation 99% on 2 liter nasal cannula oxygen. GENERAL: Well-developed, well-nourished female in no acute distress, sitting up in bed. CHEST: Clear to auscultation bilaterally except for decreased breath sounds in the bases. HEART: Irregular. ABDOMEN: Soft, nontender, normoactive bowel sounds. EXTREMITIES: No cyanosis or clubbing. There is trace edema bilateral lower extremities. NEUROLOGIC: Nonfocal. LABORATORY DATA Chemistry panel is pending. CBC is pending. Chest x-ray is pending. Arterial blo od gas is pending. ASSESSMENT AND PLAN 1. Acute respiratory failure with hypercapnia. The patient remains stable. The patient is not everton erating BiPAP the last two nights and we will see what the arterial blood gas analysis shows today. Will encourage deep breathing, continue with current measures. 2. Atrial fibrillation, remains better rate control. We will continue with current medications. 3. Hypertension/coronary artery disease. Remains improved. Continue with medications and adjust a s needed. 4. Diabetes, stable. Continue with diet and medications. 5. Acute on chronic kidney disease, continues to improve, we will continue to follow. 6. Urinary tract infection. Patient on antibiotics, we will stop the ampicillin after 7 days, ic h will be 06/26/2017. Dictated By: MORGAN SNOW MD, SR/TAZ Conf#: [id number] DID#: [id number]
[2017-06-24] MEDS: LEVOTHYROXINE 100 MCG TAB PO SCH (08:59)
[2017-06-24] MEDS: ASPIRIN 325 MG TAB PO SCH (08:59)
[2017-06-24] MEDS: ENOXAPARIN 60 MG/0.6 ML SYG SC SCH (09:02)
--- NOTE | 2017-06-24 09:50 | RADRPT ---
PROCEDURE: XR Chest. CLINICAL INDICATION: Pneumonia. Congestive heart failure. TECHNIQUE: Chest x-ray, single view. COMPARISON: CHEST 06/21/2017. FINDINGS: The cardiac silhouette is magnified and unchanged in size. Thoracic aortic atherosclerotic calcifica tion is observed. A left upper extremity PICC terminates at the SVC/right atrial junction. The ent ghanshyam tube has been removed. Mild hazy opacification of the lower chest is seen bilaterally and may r eflect small layering pleural effusions and underlying atelectasis and / or airspace disease. The ge neral appearance of the chest is unchanged. Osseous structures appear demineralized. Degenerative ch anges of the spine are present. The visualized upper abdomen is unremarkable. IMPRESSION: Mild hazy opacification of the lower thorax suggesting small pleural effusions with underlying atele ctasis and / or airspace disease. The general appearance of the chest is unchanged. Thoracic aortic atherosclerosis. RPTAT: HLST .Aviva Perry MD, MD Date Time Electronically viewed and signed by .Aviva Perry MD, on 06/24/2017 09:50 .T/
--- NOTE | 2017-06-24 10:21 | CONS ---
Date/Time of Note Date/Time of Note DATE: 06/24/17 TIME: :17 Assessment/Plan Assessment/Plan Additional Assessment/Plan 1.Hypotension-improved off of pressors/NL EF by echo this admit and now with HTN which is now uncontrolled - better now. 2. AF with RVR - pt had episodes of eren with 3 sec pauses on BB and dilt - will hold now, rate currently controlled 3. Renal failure - renal team follows, con't to avoid nephrotoxic mes. 4. Hypercarbic resp failure s/p extubation-improved off BIPAP - off BiPAP now 5. Hypothyroid - stable/ 6. Renal failure-ongoing Consultation Date/Type/Reason Admit Date/Time Jun 14, 2017 at 09:27 Type of Consultation: Pulmonary Referring Provider: SARAH VINCENT 24 HR Interval Summary Free Text/Dictation Pt had episodes of eren with 3 sec pauses on BB and dilt - will hold now, rate currently controlled ROS: No fever, no chills, no nausea, no vomiting, no diarrhea/constipation No recent weight changes No chest pain, no PND, no orthopnea + SOB No dizziness, blurred vision No thirst, no heat or cold intolerance Exam/Review of Systems Vital Signs Vitals Vital Signs Date Time Temp Pulse Resp B/P Pulse Ox O2 Delivery O2 Flow Rate FiO2 06/24/17 09:53 Nasal Cannula 2.0 06/24/17 08:19 98.4 103 22 135/68 99 06/23/17 02:33 30 Intake and Output 06/23/17 06/23/17 06/24/17 15:00 23:00 07:00 Intake Total 900 ml 780 ml Output Total 600 ml 500 ml Balance 300 ml 280 ml Exam General: WN/WD/NAD, AOx 0 HEENT: Unicetric/atraumatic/EOMI (does not follow commands) NECK: JVD elevated, no thyromegaly Lymph: no lymphadenopathy HEART: Iregular irreg with no S3, II/ systolic murmur at apex LUNGS: Coarse sounds ABD: soft, NT, ND, +BS : Intact Neuro: non focal SKIN: chronic changes EXT: trace edema Results Result Diagram: 06/24/17 0741 06/24/17 0742 Results 24 hrs Laboratory Tests Test 06/23/17 11:55 06/23/17 16:38 06/23/17 19:55 06/24/17 02:01 Bedside Glucose 154 175 119 117 Test 06/24/17 05:37 06/24/17 07:00 06/24/17 07:41 06/24/17 07:42 Bedside Glucose 114 Blood Gas Specimen Source Blood arterial Arterial Blood Date Drawn 06/24/2017 8:00:51 AM Arterial Blood pH (Temp corrected) 7.245 *L Arterial Blood pCO2 (Temp correct) 68.9 H Arterial Blood pO2 (Temp corrected) 150.3 H Arterial Blood HCO3 29.2 H Arterial Blood Base Excess 0.8 Arterial Blood Oxygen Saturation 98.8 Carlton Test ACCEPTAB Arterial Blood Gas Puncture Site Right Radial Arterial Blood Carboxyhemoglobin 0.1 Arterial Blood Methemoglobin 0.2 Oxyhemoglobin Percent 98.5 Total Hemoglobin 10.2 L Blood Gas Temperature 37.0 Blood Gas Modality NASAL CANNULA FiO2 27.0 Blood Gas Critical Value Read Back A SAIGE GONZALEZ Blood Gas Notified Whom GHASSAND Blood Gas Notified Time 06/24/2017 8:26:32 AM White Blood Count 12.5 H Red Blood Count 2.98 L Hemoglobin 8.8 L Hematocrit 29.6 L Mean Corpuscular Volume 99.3 Mean Corpuscular Hemoglobin 29.5 Mean Corpuscular Hemoglobin Concent 29.7 L Red Cell Distribution Width 14.5 Platelet Count 220 Mean Platelet Volume 10.0 Neutrophils % 84.3 H Lymphocytes % 6.8 L Monocytes % 7.9 Eosinophils % 0.3 Basophils % 0.1 Nucleated Red Blood Cells % 0.0 Neutrophils # 10.6 H Lymphocytes # 0.9 Monocytes # 1.0 H Eosinophils # 0.0 Basophils # 0.0 Nucleated Red Blood Cells # 0.0 Sodium Level 147 H Potassium Level 4.4 Chloride Level 110 Carbon Dioxide Level 30 Anion Gap 11 Blood Urea Nitrogen 46 H Creatinine 1.34 H Glucose Level 138 Calcium Level 9.3 Magnesium Level 2.3 Test 06/24/17 08:01 Bedside Glucose 130 Medications Medications Current Medications Ondansetron HCl (Zofran Inj) 4 mg Q6H PRN IV NAUSEA AND/OR VOMITING Last administered on 06/16/17 00:28; Admin Dose 4 MG; Start 06/13/17 at 15:30 Acetaminophen (Tylenol Tab) 650 mg Q6H PRN PO PAIN LEVEL 1-3 OR FEVER Last administered on 06/22/17 04:22; Admin Dose 650 MG; Start 06/13/17 at 15:30 Docusate Sodium (Colace) 100 mg Q12H PRN PO CONSTIPATION; Start 06/13/17 at 15 :30 Magnesium Hydroxide (Milk Of Mag) 30 ml DAILY PRN PO CONSTIPATION; Start 06/13 at 15:30 Hydralazine HCl (Apresoline) 10 mg Q6H PRN IV ELEVATED BLOOD PRESSURE Last administered on 06/23/17 08:23; Admin Dose 10 MG; Start 06/13/17 at 15:30 Nitroglycerin (Nitroglycerin (Sl Tab) 0.4 Mg) 1 tab Q5M PRN SL ANGINA; Start 06/13/17 at 15:30 Aspirin (Aspirin) 325 mg DAILY PO Last administered on 06/24/17 08:59; Admin Dose 325 MG; Start 06/14/17 at 09:00 Atorvastatin Calcium (Lipitor) 10 mg HS PO Last administered on 06/16/17 21: 47; Admin Dose 10 MG; Start 06/13/17 at 21:00; Status Future Hold Levothyroxine Sodium (Synthroid) 100 mcg DAILY PO Last administered on 08:59; Admin Dose 100 MCG; Start 06/14/17 at 09:00 Montelukast Sodium (Singulair) 10 mg QHS PO Last administered on 06/23/17 20: 01; Admin Dose 10 MG; Start 06/13/17 at 21:00 Ranitidine HCl (Zantac) 150 mg HS PO Last administered on 06/23/17 20:01; Admin Dose 150 MG; Start 06/13/17 at 21:00 Insulin Glargine (Lantus) 10 unit DAILY@20 SC ; Start 06/14/17 at 20:00; Status Future Hold Diagnostic Test (Pha) (Accu-Chek) 1 ea 02 XX Last administered on 06/24/17 02 :03; Admin Dose 1 EA; Start 06/15/17 at 02:00 Miscellaneous Information 1 ea NOTE XX ; Start 06/14/17 at 06:00 Glucose (Glutose) 15 gm Q15M PRN PO DECREASED GLUCOSE; Start 06/14/17 at 06:00 Glucose (Glutose) 22.5 gm Q15M PRN PO DECREASED GLUCOSE; Start 06/14/17 at 06: 00 Dextrose (D50w Syringe) 25 ml Q15M PRN IV DECREASED GLUCOSE Last administered on 06/17/17 04:41; Admin Dose 25 ML; Start 06/14/17 at 06:00 Dextrose (D50w Syringe) 50 ml Q15M PRN IV DECREASED GLUCOSE; Start 06/14/17 at 06:00 Glucagon (Glucagen) 1 mg Q15M PRN IM DECREASED GLUCOSE; Start 06/14/17 at 06: 00 Glucose 15 gm 15 gm Q15M PRN BUCCAL DECREASED GLUCOSE; Start 06/14/17 at 06:00 Diltiazem HCl (Cardizem-D5W 125 Mg/125 ml Drip) 125 ml @ 0 mls/hr TITRATE IV Last administered on 06/19/17 16:59; Admin Dose 5 MLS/HR; Start 06/14/17 at 15:00 Sertraline HCl (Zoloft) 50 mg HS PO Last administered on 06/23/17 20:01; Admin Dose 50 MG; Start 06/15/17 at 21:00 Enoxaparin Sodium (Lovenox) 60 mg DAILY SC Last administered on 06/24/17 09: 02; Admin Dose 60 MG; Start 06/17/17 at 09:00 IV Flush (NS 10 ml) 10 ml PRN PRN IV IV PROTOCOL; Start 06/16/17 at 14:00 Haloperidol (Haldol) 1 mg Q12 PRN IV agitation Last administered on 06/16/17 21:56; Admin Dose 1 MG; Start 06/16/17 at 20:30 Insulin Aspart NOVOLOG *MILD* ALGORI... Q4 SC Last administered on 06/23/17 17:56; Admin Dose 1 UNIT; Start 06/17/17 at 01:00 Dextrose/Sodium Chloride (D5-NS) 1,000 ml @ 40 mls/hr Q24H IV Last administered on 06/24/17 06:26; Admin Dose 40 MLS/HR; Start 06/17/17 at 09:00 Ampicillin (Ampicillin Susp (Ped)) 250 mg Q8 NGT Last administered on 05:39; Admin Dose 250 MG; Start 06/19/17 at 22:00; Stop 11/21/17 at 15:00 Metoprolol Tartrate (Lopressor) 50 mg BID PO Last administered on 06/23/17 20 :02; Admin Dose 50 MG; Start 06/19/17 at 21:00; Status Future Hold Hydralazine HCl (Apresoline) 50 mg Q8 PO Last administered on 06/24/17 05:39 ; Admin Dose 50 MG; Start 06/21/17 at 14:00 Diltiazem HCl (Cardizem) 60 mg Q8 GTB Last administered on 06/23/17 21:46; Admin Dose 60 MG; Start 06/23/17 at 14:00; Status Future Hold Ampicillin (Ampicillin) 250 mg TID PO ; Start 06/24/17 at 21:00 LILIAN ABEBE MD Jun 24, 2017 10:21
--- NOTE | 2017-06-24 11:46 | CONS ---
Date/Time of Note Date/Time of Note DATE: 06/24/17 TIME: 11:40 Assessment/Plan Assessment/Plan Additional Assessment/Plan Chest x-ray was reviewed from today which is showing minimal pulmonary vascular congestion. ABGs again showing significant hypercapnic uncompensated respiratory acidosis. Assessment and recommendations; 1. Patient admitted for hypercapnic respiratory failure likely due to significant central hypoventilation, status post extubation, patient now again exhibiting significant hypercapnia with poor mental status. 2. History of hypothyroidism, hypertension, atrial fibrillation, chronic renal insufficiency and diabetes. Initiate BiPAP. I did have a detailed discussion with the patient's daughter at bedside and apprised her of possible need for re- intubation. However the patient's daughter is adamantly against it and does not wish her mother to be subjected again to invasive mechanical ventilation. Prognosis is poor. Consultation Date/Type/Reason Admit Date/Time Jun 14, 2017 at 09:27 Type of Consultation: Pulmonary Referring Provider: SARAH VINCENT 24 HR Interval Summary Free Text/Dictation Patient's condition is tenuous at best. Remains very lethargic and difficult to arouse. General exam; elderly female, awake, difficult to arouse. Currently in no distress. Exam/Review of Systems Vital Signs Vitals Vital Signs Date Time Temp Pulse Resp B/P Pulse Ox O2 Delivery O2 Flow Rate FiO2 06/24/17 11:31 3.0 06/24/17 11:18 98.6 69 18 156/73 98 06/24/17 11:08 30 06/24/17 09:53 Nasal Cannula Intake and Output 06/23/17 06/23/17 06/24/17 14:59 22:59 06:59 Intake Total 900 ml 780 ml Output Total 600 ml 500 ml Balance 300 ml 280 ml Exam HEENT exam; supple neck, no JVD. No lymphadenopathy. Midline trachea. No thyromegaly. Patient has a multiple carious teeth. Chest exam; diminished breath sounds throughout. S1-S2 audible, no murmurs. Irregular rhythm. Abdomen exam; soft, nontender. No organomegaly. Bowel sounds audible. Extremity exam; no peripheral edema. 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 Results Result Diagram: 06/24/17 0741 06/24/17 0742 Results 24 hrs Laboratory Tests Test 06/23/17 11:55 06/23/17 16:38 06/23/17 19:55 06/24/17 02:01 Bedside Glucose 154 175 119 117 Test 06/24/17 05:37 06/24/17 07:00 06/24/17 07:41 06/24/17 07:42 Bedside Glucose 114 Blood Gas Specimen Source Blood arterial Arterial Blood Date Drawn 06/24/2017 8:00:51 AM Arterial Blood pH (Temp corrected) 7.245 *L Arterial Blood pCO2 (Temp correct) 68.9 H Arterial Blood pO2 (Temp corrected) 150.3 H Arterial Blood HCO3 29.2 H Arterial Blood Base Excess 0.8 Arterial Blood Oxygen Saturation 98.8 Carl[place] Test ACCEPTAB Arterial Blood Gas Puncture Site Right Radial Arterial Blood Carboxyhemoglobin 0.1 Arterial Blood Methemoglobin 0.2 Oxyhemoglobin Percent 98.5 Total Hemoglobin 10.2 L Blood Gas Temperature 37.0 Blood Gas Modality NASAL CANNULA FiO2 27.0 Blood Gas Critical Value Read Back A SAIGE GONZALEZ Blood Gas Notified Whom GHASSAND Blood Gas Notified Time 06/24/2017 8:26:32 AM White Blood Count 12.5 H Red Blood Count 2.98 L Hemoglobin 8.8 L Hematocrit 29.6 L Mean Corpuscular Volume 99.3 Mean Corpuscular Hemoglobin 29.5 Mean Corpuscular Hemoglobin Concent 29.7 L Red Cell Distribution Width 14.5 Platelet Count 220 Mean Platelet Volume 10.0 Neutrophils % 84.3 H Lymphocytes % 6.8 L Monocytes % 7.9 Eosinophils % 0.3 Basophils % 0.1 Nucleated Red Blood Cells % 0.0 Neutrophils # 10.6 H Lymphocytes # 0.9 Monocytes # 1.0 H Eosinophils # 0.0 Basophils # 0.0 Nucleated Red Blood Cells # 0.0 Sodium Level 147 H Potassium Level 4.4 Chloride Level 110 Carbon Dioxide Level 30 Anion Gap 11 Blood Urea Nitrogen 46 H Creatinine 1.34 H Glucose Level 138 Calcium Level 9.3 Magnesium Level 2.3 Test 06/24/17 08:01 Bedside Glucose 130 Medications Medications Current Medications Ondansetron HCl (Zofran Inj) 4 mg Q6H PRN IV NAUSEA AND/OR VOMITING Last administered on 06/16/17 00:28; Admin Dose 4 MG; Start 06/13/17 at 15:30 Acetaminophen (Tylenol Tab) 650 mg Q6H PRN PO PAIN LEVEL 1-3 OR FEVER Last administered on 06/22/17 04:22; Admin Dose 650 MG; Start 06/13/17 at 15:30 Docusate Sodium (Colace) 100 mg Q12H PRN PO CONSTIPATION; Start 06/13/17 at 15 :30 Magnesium Hydroxide (Milk Of Mag) 30 ml DAILY PRN PO CONSTIPATION; Start 06/13 at 15:30 Hydralazine HCl (Apresoline) 10 mg Q6H PRN IV ELEVATED BLOOD PRESSURE Last administered on 06/23/17 08:23; Admin Dose 10 MG; Start 06/13/17 at 15:30 Nitroglycerin (Nitroglycerin (Sl Tab) 0.4 Mg) 1 tab Q5M PRN SL ANGINA; Start 06/13/17 at 15:30 Aspirin (Aspirin) 325 mg DAILY PO Last administered on 06/24/17 08:59; Admin Dose 325 MG; Start 06/14/17 at 09:00 Atorvastatin Calcium (Lipitor) 10 mg HS PO Last administered on 06/16/17 21: 47; Admin Dose 10 MG; Start 06/13/17 at 21:00; Status Future Hold Levothyroxine Sodium (Synthroid) 100 mcg DAILY PO Last administered on 08:59; Admin Dose 100 MCG; Start 06/14/17 at 09:00 Montelukast Sodium (Singulair) 10 mg QHS PO Last administered on 06/23/17 20: 01; Admin Dose 10 MG; Start 06/13/17 at 21:00 Ranitidine HCl (Zantac) 150 mg HS PO Last administered on 06/23/17 20:01; Admin Dose 150 MG; Start 06/13/17 at 21:00 Insulin Glargine (Lantus) 10 unit DAILY@20 SC ; Start 06/14/17 at 20:00; Status Future Hold Diagnostic Test (Pha) (Accu-Chek) 1 ea 02 XX Last administered on 06/24/17 02 :03; Admin Dose 1 EA; Start 06/15/17 at 02:00 Miscellaneous Information 1 ea NOTE XX ; Start 06/14/17 at 06:00 Glucose (Glutose) 15 gm Q15M PRN PO DECREASED GLUCOSE; Start 06/14/17 at 06:00 Glucose (Glutose) 22.5 gm Q15M PRN PO DECREASED GLUCOSE; Start 06/14/17 at 06: 00 Dextrose (D50w Syringe) 25 ml Q15M PRN IV DECREASED GLUCOSE Last administered on 06/17/17 04:41; Admin Dose 25 ML; Start 06/14/17 at 06:00 Dextrose (D50w Syringe) 50 ml Q15M PRN IV DECREASED GLUCOSE; Start 06/14/17 at 06:00 Glucagon (Glucagen) 1 mg Q15M PRN IM DECREASED GLUCOSE; Start 06/14/17 at 06: 00 Glucose 15 gm 15 gm Q15M PRN BUCCAL DECREASED GLUCOSE; Start 06/14/17 at 06:00 Diltiazem HCl (Cardizem-D5W 125 Mg/125 ml Drip) 125 ml @ 0 mls/hr TITRATE IV Last administered on 06/19/17 16:59; Admin Dose 5 MLS/HR; Start 06/14/17 at 15:00 Sertraline HCl (Zoloft) 50 mg HS PO Last administered on 06/23/17 20:01; Admin Dose 50 MG; Start 06/15/17 at 21:00 Enoxaparin Sodium (Lovenox) 60 mg DAILY SC Last administered on 06/24/17 09: 02; Admin Dose 60 MG; Start 06/17/17 at 09:00 IV Flush (NS 10 ml) 10 ml PRN PRN IV IV PROTOCOL; Start 06/16/17 at 14:00 Haloperidol (Haldol) 1 mg Q12 PRN IV agitation Last administered on 06/16/17 21:56; Admin Dose 1 MG; Start 06/16/17 at 20:30 Insulin Aspart NOVOLOG *MILD* ALGORI... Q4 SC Last administered on 06/23/17 17:56; Admin Dose 1 UNIT; Start 06/17/17 at 01:00 Dextrose/Sodium Chloride (D5-NS) 1,000 ml @ 40 mls/hr Q24H IV Last administered on 06/24/17 06:26; Admin Dose 40 MLS/HR; Start 06/17/17 at 09:00 Ampicillin (Ampicillin Susp (Ped)) 250 mg Q8 NGT Last administered on 05:39; Admin Dose 250 MG; Start 06/19/17 at 22:00; Stop 11/21/17 at 15:00 Metoprolol Tartrate (Lopressor) 50 mg BID PO Last administered on 06/23/17 20 :02; Admin Dose 50 MG; Start 06/19/17 at 21:00; Status Future Hold Hydralazine HCl (Apresoline) 50 mg Q8 PO Last administered on 06/24/17 05:39 ; Admin Dose 50 MG; Start 06/21/17 at 14:00 Diltiazem HCl (Cardizem) 60 mg Q8 GTB Last administered on 06/23/17 21:46; Admin Dose 60 MG; Start 06/23/17 at 14:00; Status Future Hold Ampicillin (Ampicillin) 250 mg TID PO ; Start 06/24/17 at 21:00 EN BURNETTE Jun 24, 2017 11:46
[2017-06-24 12:19] LABS: AADO2 Arterial 45.9 mmHg (7.0-24.0); Allen Test ACCEPTAB; Arterial Base Excess 3.4 mmol/L (-3.0-3); Arterial COHb 0.3 % (0.0-3.0); Arterial Fraction of Oxyhgb 96.3 % (93.0-99.0); Arterial HCO3 30.8 mmol/L (22.0-26.0); Arterial MetHb 0.1 % (0.0-1.5); Arterial Total Hemglobin 9.4 g/dl (12.0-18.0); Blood Gas IEPAP 15/5; MODE MASK - BIPAP
[2017-06-24] MEDS: ACETAMINOPHEN 325 MG TAB PO PRN (16:33)
[2017-06-24] MEDS: AMPICILLIN 500 MG CAP PO SCH (18:41)
[2017-06-24] MEDS: MONTELUKAST 10 MG TAB PO SCH (20:34)
[2017-06-24] MEDS: RANITIDINE 150 MG TAB PO SCH (20:34)
[2017-06-24] MEDS: SERTRALINE 100 MG TAB PO SCH (20:34)
[2017-06-24] MEDS ORDERED: AMPICILLIN 250 MG CAP PO SCH (21:00)
[2017-06-25] VITALS (18 sets, daily range): BP systolic 139–188; BP diastolic 70–114; PULSE 90–136; RESP 18–20
[2017-06-25] MEDS: hydrALAzine 20 MG INJ IV PRN ×2 (00:52→08:43)
[2017-06-25] MEDS: INSULIN ASPART [NOVOLOG] 3 ML PEN SC SCH ×6 (01:00→21:00)
[2017-06-25] MEDS: ACCU-CHEK XX SCH (01:10)
[2017-06-25] MEDS: DEXTROSE 5%-0.9% NACL 1,000 ML IV SCH (05:02)
[2017-06-25 07:20] LABS: BASOPHILS % 0.1 % (0.0-2.0); EOSINOPHILS # 0.1 10^3/ul (0.0-0.5); EOSINOPHILS % 0.9 % (0.0-7.0); HEMOGLOBIN 8.7 g/dl (12.0-16.0); LYMPHOCYTES # 0.7 10^3/ul (0.8-2.9); LYMPHOCYTES % 6.8 % (15.0-51.0); MEAN CORPUSCULAR HEMOGLOBIN 29.3 pg (29.0-33.0); MEAN CORPUSCULAR VOLUME 97.6 fl (82.0-101.0); MEAN PLATELET VOLUME 9.9 fl (7.4-10.4); MONOCYTE # 0.9 10^3/ul (0.3-0.9); MONOCYTES % 9.2 % (0.0-11.0); NEUTROPHIL # 8.4 10^3/ul (1.6-7.5); NEUTROPHILS % 82.5 % (39.0-77.0); PLATELET COUNT 222 10^3/UL (140-415); RED BLOOD COUNT 2.97 10^6/ul (4.20-5.40); RED CELL DISTRIBUTION WIDTH 14.6 % (11.5-14.5); WHITE BLOOD COUNT 10.2 10^3/ul (4.8-10.8)
[2017-06-25 07:42] LABS: CALCIUM 9.5 mg/dl (8.4-10.2); CREATININE 1.28 mg/dl (0.44-1.00); MAGNESIUM 2.2 mg/dl (1.7-2.5)
[2017-06-25] MEDS: ASPIRIN 325 MG TAB PO SCH (08:39)
[2017-06-25] MEDS: AMPICILLIN 500 MG CAP PO SCH ×2 (08:39→21:06)
[2017-06-25] MEDS: ENOXAPARIN 60 MG/0.6 ML SYG SC SCH (08:40)
[2017-06-25 08:45] LABS: AADO2 Arterial 35.3 mmHg (7.0-24.0); Allen Test ACCEPTAB; Arterial Base Excess 4.4 mmol/L (-3.0-3); Arterial COHb 0.3 % (0.0-3.0); Arterial Fraction of Oxyhgb 97.6 % (93.0-99.0); Arterial HCO3 30.1 mmol/L (22.0-26.0); Arterial MetHb 0.2 % (0.0-1.5); Arterial Total Hemglobin 10.6 g/dl (12.0-18.0); Blood Gas IEPAP 15/5; MODE MASK - BIPAP
[2017-06-25] MEDS ORDERED: DEXTROSE 5%-0.45% NACL 500 ML IV SCH (09:00)
[2017-06-25] MEDS: LEVOTHYROXINE 100 MCG TAB PO SCH (09:21)
[2017-06-25] MEDS: DEXTROSE 5%-0.45% NACL 1,000 ML IV SCH (09:36)
--- NOTE | 2017-06-25 09:50 | PN ---
DATE: 06/25/2017 SUBJECTIVE: The patient complains of headache with the mask, is tired. OBJECTIVE: VITAL SIGNS: Temperature 98.3, pulse anywhere from 69 to 120, respirations 20, blood pressure 188/8 1, oxygen saturation 95% on 30% FIO2 with BiPAP. LUNGS: Clear to auscultation bilaterally with decreased breath sounds at bilateral bases. HEART: Tachycardic, irregular. ABDOMEN: Soft, nontender. EXTREMITIES: No cyanosis, clubbing. There is 1+ edema in the left upper extremity. The PICC line site is good, nontender, no erythema. NEUROLOGIC: Nonfocal. LABORATORY DATA: Sodium 150, potassium 4.0, chloride 113, bicarb 32, BUN of 43, creatinine 1.28, ma gnesium is 2.2. White blood cell count is 10.2, hemoglobin of 8.7, hematocrit 29, platelets 222. ASSESSMENT AND PLAN 1. Acute respiratory failure with hypercapnia. The patient continues to require BiPAP. Patient do es not tolerate this well and will continue with this with breaks. ABG is pending from this morning and will determine future care. Patient might be a candidate for [facility] for [facility] pulmonary care and rehabilitation in order to hopefully prevent need for BiPAP at home. Will discuss with pulmonology regarding this. 2. Atrial fibrillation. The patient was having pauses in bradycardia yesterday and Cardizem and be ta blockers were held. The patient today is having tachycardia and will need resumption of some of her medications. Cardiology has been called and will adjust medications as needed. 3. Coronary disease/hypertension. The patient is hypertensive today, but blood pressure medication s were held yesterday. The patient is receiving p.r.n. hydralazine. 4. Diabetes remains stable. Continue with medications and diet. 5. Acute on chronic kidney disease. Remains stable. Continue to monitor. 6. Hypernatremia. We will change IV fluids to D5 half normal saline. Dictated By: MORGAN SNOW MD SR/NTS Conf#: [id number] DID#: [id number]
[2017-06-25] MEDS ORDERED: DILTIAZEM 25 MG INJ IV ONE (10:00)
--- NOTE | 2017-06-25 10:09 | RADRPT ---
PROCEDURE: Left upper extremity venous ultrasound CLINICAL INDICATION: Upper extremity swelling and pain TECHNIQUE: Color ken-scale ultrasound images of the upper extremity veins were obtained. COMPARISON: none available FINDINGS: Antegrade flow is identified in the left internal jugular, subclavian and axillary veins. Compressibility is identified in the left brachial, basilic and cephalic veins. PICC line is seen in the right brachial vein. Antegrade flow is noted in the left radial and ulnar veins. IMPRESSION: No evidence of venous thrombus in the left upper extremity. PICC line in the right brachial vein. RPTAT: AA .Timoteo Nugent MD, Date Time Electronically viewed and signed by .Timoteo Nugent MD, on 06/25/2017 10:09 .P/
--- NOTE | 2017-06-25 13:29 | CONS ---
Date/Time of Note Date/Time of Note DATE: 06/25/17 TIME: 13:27 Consult Date/Type/Reason Admit Date/Time Jun 14, 2017 at 09:27 Type of Consultation: Pulmonary Ordering Provider: SARAH VINCENT Subjective Patient weak but arousable. Objective Vital Signs Date Time Temp Pulse Resp B/P Pulse Ox O2 Delivery O2 Flow Rate FiO2 06/25/17 12:58 3.0 06/25/17 12:09 126 06/25/17 11:52 97.6 20 144/86 100 06/25/17 07:52 30 06/25/17 01:08 BIPAP Intake and Output 06/24/17 06/24/17 06/25/17 15:00 23:00 07:00 Intake Total 240 ml 600 ml Output Total 300 ml 500 ml Balance -60 ml 100 ml Exam PHYSICAL EXAMINATION: GENERAL: Chronically ill appearing lady, comfortable at rest, nasal cannula oxygen. VITAL SIGNS: Nasal cannula oxygen NECK: Supple. No JVD or lymphadenopathy. CARDIAC: S1, S2, no added sounds or murmurs. CHEST: Diminished air entry bilaterally. ABDOMEN: Soft, nontender. No guarding or rebound. EXTREMITIES: No cyanosis, clubbing. Edema +1. NEUROLOGIC: Generalized weakness. Results/Medications Result Diagram: 06/25/17 0701 06/25/17 0701 Results 24 hrs Laboratory Tests Test 06/24/17 17:18 06/24/17 20:39 06/25/17 01:07 06/25/17 05:03 Bedside Glucose 106 101 90 92 Test 06/25/17 07:01 06/25/17 08:12 06/25/17 08:13 06/25/17 12:02 White Blood Count 10.2 Red Blood Count 2.97 L Hemoglobin 8.7 L Hematocrit 29.0 L Mean Corpuscular Volume 97.6 Mean Corpuscular Hemoglobin 29.3 Mean Corpuscular Hemoglobin Concent 30.0 L Red Cell Distribution Width 14.6 H Platelet Count 222 Mean Platelet Volume 9.9 Neutrophils % 82.5 H Lymphocytes % 6.8 L Monocytes % 9.2 Eosinophils % 0.9 Basophils % 0.1 Nucleated Red Blood Cells % 0.0 Neutrophils # 8.4 H Lymphocytes # 0.7 L Monocytes # 0.9 Eosinophils # 0.1 Basophils # 0.0 Nucleated Red Blood Cells # 0.0 Sodium Level 150 H Potassium Level 4.0 Chloride Level 113 H Carbon Dioxide Level 32 H Anion Gap 9 Blood Urea Nitrogen 43 H Creatinine 1.28 H Glucose Level 102 Calcium Level 9.5 Magnesium Level 2.2 Blood Gas Specimen Source Blood arterial Arterial Blood Date Drawn 06/25/2017 8:30:45 AM Arterial Blood pH (Temp corrected) 7.395 Arterial Blood pCO2 (Temp correct) 50.3 H Arterial Blood pO2 (Temp corrected) 119.5 H Arterial Blood HCO3 30.1 H Arterial Blood Base Excess 4.4 H Arterial Blood Oxygen Saturation 98.1 Carlton Test ACCEPTAB Arterial Blood Gas Puncture Site Right Radial Arterial Blood Carboxyhemoglobin 0.3 Arterial Blood Methemoglobin 0.2 Blood Gas A-a O2 Differential 35.3 H Oxyhemoglobin Percent 97.6 Total Hemoglobin 10.6 L Blood Gas Temperature 37.0 Blood Gas Respiration Rate 18.0 Blood Gas Actual Respiration Rate 18 Blood Gas Modality MASK - BIPAP FiO2 30.0 Blood Gas IPAP/EPAP Ratio 15/5 Blood Gas Notified Whom JLD Blood Gas Notified Time 06/25/2017 8:45:00 AM Bedside Glucose 102 132 Medications Current Medications Ondansetron HCl (Zofran Inj) 4 mg Q6H PRN IV NAUSEA AND/OR VOMITING Last administered on 06/16/17 00:28; Admin Dose 4 MG; Start 06/13/17 at 15:30 Acetaminophen (Tylenol Tab) 650 mg Q6H PRN PO PAIN LEVEL 1-3 OR FEVER Last administered on 06/24/17 16:33; Admin Dose 650 MG; Start 06/13/17 at 15:30 Docusate Sodium (Colace) 100 mg Q12H PRN PO CONSTIPATION; Start 06/13/17 at 15 :30 Magnesium Hydroxide (Milk Of Mag) 30 ml DAILY PRN PO CONSTIPATION; Start 06/13 at 15:30 Hydralazine HCl (Apresoline) 10 mg Q6H PRN IV ELEVATED BLOOD PRESSURE Last administered on 06/25/17 08:43; Admin Dose 10 MG; Start 06/13/17 at 15:30 Nitroglycerin (Nitroglycerin (Sl Tab) 0.4 Mg) 1 tab Q5M PRN SL ANGINA; Start 06/13/17 at 15:30 Aspirin (Aspirin) 325 mg DAILY PO Last administered on 06/25/17 08:39; Admin Dose 325 MG; Start 06/14/17 at 09:00 Atorvastatin Calcium (Lipitor) 10 mg HS PO Last administered on 06/16/17 21: 47; Admin Dose 10 MG; Start 06/13/17 at 21:00; Status Future Hold Levothyroxine Sodium (Synthroid) 100 mcg DAILY PO Last administered on 09:21; Admin Dose 100 MCG; Start 06/14/17 at 09:00 Montelukast Sodium (Singulair) 10 mg QHS PO Last administered on 06/24/17 20: 34; Admin Dose 10 MG; Start 06/13/17 at 21:00 Ranitidine HCl (Zantac) 150 mg HS PO Last administered on 06/24/17 20:34; Admin Dose 150 MG; Start 06/13/17 at 21:00 Insulin Glargine (Lantus) 10 unit DAILY@20 SC ; Start 06/14/17 at 20:00; Status Future Hold Diagnostic Test (Pha) (Accu-Chek) 1 ea 02 XX Last administered on 06/24/17 02 :03; Admin Dose 1 EA; Start 06/15/17 at 02:00 Miscellaneous Information 1 ea NOTE XX ; Start 06/14/17 at 06:00 Glucose (Glutose) 15 gm Q15M PRN PO DECREASED GLUCOSE; Start 06/14/17 at 06:00 Glucose (Glutose) 22.5 gm Q15M PRN PO DECREASED GLUCOSE; Start 06/14/17 at 06: 00 Dextrose (D50w Syringe) 25 ml Q15M PRN IV DECREASED GLUCOSE Last administered on 06/17/17 04:41; Admin Dose 25 ML; Start 06/14/17 at 06:00 Dextrose (D50w Syringe) 50 ml Q15M PRN IV DECREASED GLUCOSE; Start 06/14/17 at 06:00 Glucagon (Glucagen) 1 mg Q15M PRN IM DECREASED GLUCOSE; Start 06/14/17 at 06: 00 Glucose 15 gm 15 gm Q15M PRN BUCCAL DECREASED GLUCOSE; Start 06/14/17 at 06:00 Diltiazem HCl (Cardizem-D5W 125 Mg/125 ml Drip) 125 ml @ 0 mls/hr TITRATE IV Last administered on 06/19/17 16:59; Admin Dose 5 MLS/HR; Start 06/14/17 at 15:00 Sertraline HCl (Zoloft) 50 mg HS PO Last administered on 06/24/17 20:34; Admin Dose 50 MG; Start 06/15/17 at 21:00 Enoxaparin Sodium (Lovenox) 60 mg DAILY SC Last administered on 06/25/17 08: 40; Admin Dose 60 MG; Start 06/17/17 at 09:00 IV Flush (NS 10 ml) 10 ml PRN PRN IV IV PROTOCOL; Start 06/16/17 at 14:00 Haloperidol (Haldol) 1 mg Q12 PRN IV agitation Last administered on 06/16/17 21:56; Admin Dose 1 MG; Start 06/16/17 at 20:30 Metoprolol Tartrate (Lopressor) 50 mg BID PO Last administered on 06/23/17 20 :02; Admin Dose 50 MG; Start 06/19/17 at 21:00; Status Future Hold Hydralazine HCl (Apresoline) 50 mg Q8 PO Last administered on 06/25/17 05:06 ; Admin Dose 50 MG; Start 06/21/17 at 14:00 Diltiazem HCl (Cardizem) 60 mg Q8 GTB Last administered on 06/23/17 21:46; Admin Dose 60 MG; Start 06/23/17 at 14:00; Status Future Hold Ampicillin 500 mg 500 mg BID PO Last administered on 06/25/17 08:39; Admin Dose 500 MG; Start 06/24/17 at 18:00 Dextrose/Sodium Chloride (D5-1/2ns) 1,000 ml @ 40 mls/hr Q24H IV Last administered on 06/25/17 09:36; Admin Dose 40 MLS/HR; Start 06/25/17 at 09:30 Assessment/Plan Chief Complaint/Hosp Course IMPRESSION: 1. Acute hypercapnic respiratory failure, now intubated on mechanical ventilation. Status post thoracentesis right pleural effusion. 2. History of hypertension. 3. Atrial fibrillation with rapid ventricular rate. Still requiring rate control. 4. Diabetes mellitus. 5. Status post shock. 6. Acute renal failure. Likely ATN injury. Renal function appears to be stabilizing. Plan 1. Nocturnal noninvasive positive pressure ventilation 2. Rate control per cardiology. Continues diltiazem and amiodarone. 3. Hold sedation if tolerated. 4. Deep venous thrombosis and gastrointestinal prophylaxis. Overall prognosis remains guarded. Problems: YAZMIN VARGAS MD, [facility] Jun 25, 2017 13:28
--- NOTE | 2017-06-25 14:00 | CONS ---
Date/Time of Note Date/Time of Note DATE: 06/25/17 TIME: 13:58 Assessment/Plan Assessment/Plan Chief Complaint/Hosp Course IMP: 1.Hypotension-improved off of pressors/NL EF by echo this admit and now with HTN which is now uncontrolled 2. AF with RVR-yesterday apparently had pause 3 seconds and all estrella agents were held 3. Renal failure 4. Hypercarbic resp failure s/p extubation-improved off BIPAP 5. Hypothyroid 6. Renal failure-ongoing Recc: -Tele -serial ecg's -Follow volume status closely -Continue lovenox QD/asa -Follow HR/BP/volume status closely -Will resume BB and hold CCB and follow HR response Problems: Consultation Date/Type/Reason Admit Date/Time Jun 14, 2017 at 09:27 Initial Consult Date 06/15/17 Type of Consultation: cardiology Reason for Consultation AF Referring Provider: SARAH VINCENT Exam/Review of Systems Vital Signs Vitals Vital Signs Date Time Temp Pulse Resp B/P Pulse Ox O2 Delivery O2 Flow Rate FiO2 06/25/17 12:58 3.0 06/25/17 12:09 126 06/25/17 11:52 97.6 20 144/86 100 06/25/17 07:52 30 06/25/17 01:08 BIPAP Intake and Output 06/24/17 06/24/17 06/25/17 15:00 23:00 07:00 Intake Total 240 ml 600 ml Output Total 300 ml 500 ml Balance -60 ml 100 ml Exam Review of Systems: CONSTITUTIONAL: No fevers, chills. PULMONARY: No sob CARDIOVASCULAR: No chest pain/palpitations GASTROINTESTINAL: No nausea/vomiting. GENITOURINARY: No hematuria/dysuria. MUSCULOSKELETAL: No myagias/arthalgias. PSYCHIATRIC: The patient denies depression. NEUROLOGIC: No weakness Constitutional: alert, oriented Psych: no complaints Head: normocephalic ENMT: mucosa pink and moist Neck: jvd, supple Respiratory: diminished breath sounds (at bases/B) Cardiovascular: irregular rhythm (tachycardic) Gastrointestinal: non-tender, soft Musculoskeletal: muscle tone (normal) Extremities: edema (none) Neurological: other (No focal deficits) Results Result Diagram: 06/25/17 0701 06/25/17 0701 Results 24 hrs Laboratory Tests Test 06/24/17 17:18 06/24/17 20:39 06/25/17 01:07 06/25/17 05:03 Bedside Glucose 106 101 90 92 Test 06/25/17 07:01 06/25/17 08:12 06/25/17 08:13 06/25/17 12:02 White Blood Count 10.2 Red Blood Count 2.97 L Hemoglobin 8.7 L Hematocrit 29.0 L Mean Corpuscular Volume 97.6 Mean Corpuscular Hemoglobin 29.3 Mean Corpuscular Hemoglobin Concent 30.0 L Red Cell Distribution Width 14.6 H Platelet Count 222 Mean Platelet Volume 9.9 Neutrophils % 82.5 H Lymphocytes % 6.8 L Monocytes % 9.2 Eosinophils % 0.9 Basophils % 0.1 Nucleated Red Blood Cells % 0.0 Neutrophils # 8.4 H Lymphocytes # 0.7 L Monocytes # 0.9 Eosinophils # 0.1 Basophils # 0.0 Nucleated Red Blood Cells # 0.0 Sodium Level 150 H Potassium Level 4.0 Chloride Level 113 H Carbon Dioxide Level 32 H Anion Gap 9 Blood Urea Nitrogen 43 H Creatinine 1.28 H Glucose Level 102 Calcium Level 9.5 Magnesium Level 2.2 Blood Gas Specimen Source Blood arterial Arterial Blood Date Drawn 06/25/2017 8:30:45 AM Arterial Blood pH (Temp corrected) 7.395 Arterial Blood pCO2 (Temp correct) 50.3 H Arterial Blood pO2 (Temp corrected) 119.5 H Arterial Blood HCO3 30.1 H Arterial Blood Base Excess 4.4 H Arterial Blood Oxygen Saturation 98.1 Carlton Test ACCEPTAB Arterial Blood Gas Puncture Site Right Radial Arterial Blood Carboxyhemoglobin 0.3 Arterial Blood Methemoglobin 0.2 Blood Gas A-a O2 Differential 35.3 H Oxyhemoglobin Percent 97.6 Total Hemoglobin 10.6 L Blood Gas Temperature 37.0 Blood Gas Respiration Rate 18.0 Blood Gas Actual Respiration Rate 18 Blood Gas Modality MASK - BIPAP FiO2 30.0 Blood Gas IPAP/EPAP Ratio 15 Blood Gas Notified Whom JLD Blood Gas Notified Time 06/25/2017 8:45:00 AM Bedside Glucose 102 132 Medications Medications Current Medications Ondansetron HCl (Zofran Inj) 4 mg Q6H PRN IV NAUSEA AND/OR VOMITING Last administered on 06/16/17t 00:28; Admin Dose 4 MG; Start 06/13/17 at 15:30 Acetaminophen (Tylenol Tab) 650 mg Q6H PRN PO PAIN LEVEL 1-3 OR FEVER Last administered on 06/24/17 16:33; Admin Dose 650 MG; Start 06/13/17 at 15:30 Docusate Sodium (Colace) 100 mg Q12H PRN PO CONSTIPATION; Start 06/13/17 at 15 :30 Magnesium Hydroxide (Milk Of Mag) 30 ml DAILY PRN PO CONSTIPATION; Start 06/13 at 15:30 Hydralazine HCl (Apresoline) 10 mg Q6H PRN IV ELEVATED BLOOD PRESSURE Last administered on 06/25/17 08:43; Admin Dose 10 MG; Start 06/13/17 at 15:30 Nitroglycerin (Nitroglycerin (Sl Tab) 0.4 Mg) 1 tab Q5M PRN SL ANGINA; Start 06/13/17 at 15:30 Aspirin (Aspirin) 325 mg DAILY PO Last administered on 06/25/17 08:39; Admin Dose 325 MG; Start 06/14/17 at 09:00 Atorvastatin Calcium (Lipitor) 10 mg HS PO Last administered on 06/16/17 21: 47; Admin Dose 10 MG; Start 06/13/17 at 21:00; Status Future Hold Levothyroxine Sodium (Synthroid) 100 mcg DAILY PO Last administered on 09:21; Admin Dose 100 MCG; Start 06/14/17 at 09:00 Montelukast Sodium (Singulair) 10 mg QHS PO Last administered on 06/24/17 20: 34; Admin Dose 10 MG; Start 06/13/17 at 21:00 Ranitidine HCl (Zantac) 150 mg HS PO Last administered on 06/24/17 20:34; Admin Dose 150 MG; Start 06/13/17 at 21:00 Insulin Glargine (Lantus) 10 unit DAILY@20 SC ; Start 06/14/17 at 20:00; Status Future Hold Diagnostic Test (Pha) (Accu-Chek) 1 ea 02 XX Last administered on 06/24/17 02 :03; Admin Dose 1 EA; Start 06/15/17 at 02:00 Miscellaneous Information 1 ea NOTE XX ; Start 06/14/17 at 06:00 Glucose (Glutose) 15 gm Q15M PRN PO DECREASED GLUCOSE; Start 06/14/17 at 06:00 Glucose (Glutose) 22.5 gm Q15M PRN PO DECREASED GLUCOSE; Start 06/14/17 at 06: 00 Dextrose (D50w Syringe) 25 ml Q15M PRN IV DECREASED GLUCOSE Last administered on 06/17/17 04:41; Admin Dose 25 ML; Start 06/14/17 at 06:00 Dextrose (D50w Syringe) 50 ml Q15M PRN IV DECREASED GLUCOSE; Start 06/14/17 at 06:00 Glucagon (Glucagen) 1 mg Q15M PRN IM DECREASED GLUCOSE; Start 06/14/17 at 06: 00 Glucose 15 gm 15 gm Q15M PRN BUCCAL DECREASED GLUCOSE; Start 06/14/17 at 06:00 Diltiazem HCl (Cardizem-D5W 125 Mg/125 ml Drip) 125 ml @ 0 mls/hr TITRATE IV Last administered on 06/19/17 16:59; Admin Dose 5 MLS/HR; Start 06/14/17 at 15:00 Sertraline HCl (Zoloft) 50 mg HS PO Last administered on 06/24/17 20:34; Admin Dose 50 MG; Start 06/15/17 at 21:00 Enoxaparin Sodium (Lovenox) 60 mg DAILY SC Last administered on 06/25/17 08: 40; Admin Dose 60 MG; Start 06/17/17 at 09:00 IV Flush (NS 10 ml) 10 ml PRN PRN IV IV PROTOCOL; Start 06/16/17 at 14:00 Haloperidol (Haldol) 1 mg Q12 PRN IV agitation Last administered on 06/16/17 21:56; Admin Dose 1 MG; Start 06/16/17 at 20:30 Metoprolol Tartrate (Lopressor) 50 mg BID PO Last administered on 06/23/17 20 :02; Admin Dose 50 MG; Start 06/19/17 at 21:00; Status Future Hold Hydralazine HCl (Apresoline) 50 mg Q8 PO Last administered on 06/25/17 05:06 ; Admin Dose 50 MG; Start 06/21/17 at 14:00 Diltiazem HCl (Cardizem) 60 mg Q8 GTB Last administered on 06/23/17 21:46; Admin Dose 60 MG; Start 06/23/17 at 14:00; Status Future Hold Ampicillin 500 mg 500 mg BID PO Last administered on 06/25/17 08:39; Admin Dose 500 MG; Start 06/24/17 at 18:00 Dextrose/Sodium Chloride (D5-1/2ns) 1,000 ml @ 40 mls/hr Q24H IV Last administered on 06/25/17 09:36; Admin Dose 40 MLS/HR; Start 06/25/17 at 09:30 WEN GOFF Jun 25, 2017 14:00
[2017-06-25] MEDS: SERTRALINE 100 MG TAB PO SCH (21:06)
[2017-06-25] MEDS: MONTELUKAST 10 MG TAB PO SCH (21:06)
[2017-06-25] MEDS: RANITIDINE 150 MG TAB PO SCH (21:06)
[2017-06-25] MEDS: DILTIAZEM 60 MG TAB GTB SCH (21:10)
[2017-06-26] VITALS (11 sets, daily range): BP systolic 129–152; BP diastolic 61–88; PULSE 95–131; RESP 16–20
[2017-06-26] MEDS: ACCU-CHEK XX SCH (02:00)
[2017-06-26] MEDS: DILTIAZEM 60 MG TAB GTB SCH ×3 (06:12→21:51)
[2017-06-26] MEDS: INSULIN ASPART [NOVOLOG] 3 ML PEN SC SCH ×4 (07:25→21:00)
[2017-06-26 07:40] LABS: BASOPHILS % 0.1 % (0.0-2.0); EOSINOPHILS # 0.1 10^3/ul (0.0-0.5); EOSINOPHILS % 0.5 % (0.0-7.0); HEMATOCRIT 28.6 % (37.0-47.0); HEMOGLOBIN 8.5 g/dl (12.0-16.0); LYMPHOCYTES # 0.8 10^3/ul (0.8-2.9); LYMPHOCYTES % 8.8 % (15.0-51.0); MEAN CORPUSCULAR HEMOGLOBIN 29.3 pg (29.0-33.0); MEAN CORPUSCULAR HGB CONC 29.7 g/dl (32.0-37.0); MEAN CORPUSCULAR VOLUME 98.6 fl (82.0-101.0); MEAN PLATELET VOLUME 10.6 fl (7.4-10.4); MONOCYTE # 1.1 10^3/ul (0.3-0.9); MONOCYTES % 11.2 % (0.0-11.0); NEUTROPHIL # 7.6 10^3/ul (1.6-7.5); PLATELET COUNT 228 10^3/UL (140-415); RED CELL DISTRIBUTION WIDTH 14.6 % (11.5-14.5); WHITE BLOOD COUNT 9.6 10^3/ul (4.8-10.8)
[2017-06-26 08:00] LABS: CALCIUM 9.2 mg/dl (8.4-10.2); CREATININE 1.33 mg/dl (0.44-1.00); POTASSIUM 4.1 mmol/L (3.5-5.1)
[2017-06-26] MEDS: LEVOTHYROXINE 100 MCG TAB PO SCH (09:49)
[2017-06-26] MEDS: DEXTROSE 5%-0.45% NACL 1,000 ML IV SCH (09:49)
[2017-06-26] MEDS: ASPIRIN 325 MG TAB PO SCH (09:49)
[2017-06-26] MEDS: AMPICILLIN 500 MG CAP PO SCH ×2 (09:49→21:03)
[2017-06-26] MEDS: ENOXAPARIN 60 MG/0.6 ML SYG SC SCH (09:55)
--- NOTE | 2017-06-26 11:16 | CONS ---
Date/Time of Note Date/Time of Note DATE: 06/26/17 TIME: 11:15 Consult Date/Type/Reason Admit Date/Time Jun 14, 2017 at 09:27 Type of Consultation: Pulmonary Ordering Provider: SARAH VINCENT Subjective Patient doing okay still has significant weakness. Objective Vital Signs Date Time Temp Pulse Resp B/P Pulse Ox O2 Delivery O2 Flow Rate FiO2 06/26/17 08:34 107 06/26/17 07:21 98.2 18 129/61 97 06/25/17 20:30 3.0 06/25/17 20:00 Nasal Cannula 06/25/17 07:52 30 Exam PHYSICAL EXAMINATION: GENERAL: Chronically ill appearing lady, comfortable at rest, nasal cannula oxygen. VITAL SIGNS: Nasal cannula oxygen NECK: Supple. No JVD or lymphadenopathy. CARDIAC: S1, S2, no added sounds or murmurs. CHEST: Diminished air entry bilaterally. ABDOMEN: Soft, nontender. No guarding or rebound. EXTREMITIES: No cyanosis, clubbing. Edema +1. NEUROLOGIC: Generalized weakness. Results/Medications Result Diagram: 06/26/17 0655 06/26/17 0655 Results 24 hrs Laboratory Tests Test 06/25/17 12:02 06/25/17 17:54 06/25/17 21:04 06/26/17 06:55 Bedside Glucose 132 100 116 White Blood Count 9.6 Red Blood Count 2.90 L Hemoglobin 8.5 L Hematocrit 28.6 L Mean Corpuscular Volume 98.6 Mean Corpuscular Hemoglobin 29.3 Mean Corpuscular Hemoglobin Concent 29.7 L Red Cell Distribution Width 14.6 H Platelet Count 228 Mean Platelet Volume 10.6 H Neutrophils % 79.0 H Lymphocytes % 8.8 L Monocytes % 11.2 H Eosinophils % 0.5 Basophils % 0.1 Nucleated Red Blood Cells % 0.0 Neutrophils # 7.6 H Lymphocytes # 0.8 Monocytes # 1.1 H Eosinophils # 0.1 Basophils # 0.0 Nucleated Red Blood Cells # 0.0 Sodium Level 147 H Potassium Level 4.1 Chloride Level 108 Carbon Dioxide Level 30 Anion Gap 13 Blood Urea Nitrogen 40 H Creatinine 1.33 H Glucose Level 153 Calcium Level 9.2 Test 06/26/17 08:07 Bedside Glucose 121 Medications Current Medications Ondansetron HCl (Zofran Inj) 4 mg Q6H PRN IV NAUSEA AND/OR VOMITING Last administered on 06/16/17 00:28; Admin Dose 4 MG; Start 06/13/17 at 15:30 Acetaminophen (Tylenol Tab) 650 mg Q6H PRN PO PAIN LEVEL 1-3 OR FEVER Last administered on 06/24/17 16:33; Admin Dose 650 MG; Start 06/13/17 at 15:30 Docusate Sodium (Colace) 100 mg Q12H PRN PO CONSTIPATION; Start 06/13/17 at 15 :30 Magnesium Hydroxide (Milk Of Mag) 30 ml DAILY PRN PO CONSTIPATION; Start 06/13 at 15:30 Hydralazine HCl (Apresoline) 10 mg Q6H PRN IV ELEVATED BLOOD PRESSURE Last administered on 06/25/17 08:43; Admin Dose 10 MG; Start 06/13/17 at 15:30 Nitroglycerin (Nitroglycerin (Sl Tab) 0.4 Mg) 1 tab Q5M PRN SL ANGINA; Start 06/13/17 at 15:30 Aspirin (Aspirin) 325 mg DAILY PO Last administered on 06/26/17 09:49; Admin Dose 325 MG; Start 06/14/17 at 09:00 Atorvastatin Calcium (Lipitor) 10 mg HS PO Last administered on 06/16/17 21: 47; Admin Dose 10 MG; Start 06/13/17 at 21:00; Status Future Hold Levothyroxine Sodium (Synthroid) 100 mcg DAILY PO Last administered on 09:49; Admin Dose 100 MCG; Start 06/14/17 at 09:00 Montelukast Sodium (Singulair) 10 mg QHS PO Last administered on 06/25/17 21: 06; Admin Dose 10 MG; Start 06/13/17 at 21:00 Ranitidine HCl (Zantac) 150 mg HS PO Last administered on 06/25/17 21:06; Admin Dose 150 MG; Start 06/13/17 at 21:00 Insulin Glargine (Lantus) 10 unit DAILY@20 SC ; Start 06/14/17 at 20:00; Status Future Hold Diagnostic Test (Pha) (Accu-Chek) 1 ea 02 XX Last administered on 06/24/17 02 :03; Admin Dose 1 EA; Start 06/15/17 at 02:00 Miscellaneous Information 1 ea NOTE XX ; Start 06/14/17 at 06:00 Glucose (Glutose) 15 gm Q15M PRN PO DECREASED GLUCOSE; Start 06/14/17 at 06:00 Glucose (Glutose) 22.5 gm Q15M PRN PO DECREASED GLUCOSE; Start 06/14/17 at 06: 00 Dextrose (D50w Syringe) 25 ml Q15M PRN IV DECREASED GLUCOSE Last administered on 06/17/17 04:41; Admin Dose 25 ML; Start 06/14/17 at 06:00 Dextrose (D50w Syringe) 50 ml Q15M PRN IV DECREASED GLUCOSE; Start 06/14/17 at 06:00 Glucagon (Glucagen) 1 mg Q15M PRN IM DECREASED GLUCOSE; Start 06/14/17 at 06: 00 Glucose 15 gm 15 gm Q15M PRN BUCCAL DECREASED GLUCOSE; Start 06/14/17 at 06:00 Diltiazem HCl (Cardizem-D5W 125 Mg/125 ml Drip) 125 ml @ 0 mls/hr TITRATE IV Last administered on 06/19/17 16:59; Admin Dose 5 MLS/HR; Start 06/14/17 at 15:00 Sertraline HCl (Zoloft) 50 mg HS PO Last administered on 06/25/17 21:06; Admin Dose 50 MG; Start 06/15/17 at 21:00 Enoxaparin Sodium (Lovenox) 60 mg DAILY SC Last administered on 06/26/17 09: 55; Admin Dose 60 MG; Start 06/17/17 at 09:00 IV Flush (NS 10 ml) 10 ml PRN PRN IV IV PROTOCOL; Start 06/16/17 at 14:00 Haloperidol (Haldol) 1 mg Q12 PRN IV agitation Last administered on 06/16/17 21:56; Admin Dose 1 MG; Start 06/16/17 at 20:30 Metoprolol Tartrate (Lopressor) 50 mg BID PO Last administered on 06/23/17 20 :02; Admin Dose 50 MG; Start 06/19/17 at 21:00; Status Future hold Hydralazine HCl (Apresoline) 50 mg Q8 PO Last administered on 06/26/17 06:12 ; Admin Dose 50 MG; Start 06/21/17 at 14:00 Diltiazem HCl (Cardizem) 60 mg Q8 GTB Last administered on 06/26/17 06:12; Admin Dose 60 MG; Start 06/23/17 at 14:00; Status Future hold Ampicillin 500 mg 500 mg BID PO Last administered on 06/26/17 09:49; Admin Dose 500 MG; Start 06/24/17 at 18:00 Dextrose/Sodium Chloride (D5-1/2ns) 1,000 ml @ 40 mls/hr Q24H IV Last administered on 06/26/17 09:49; Admin Dose 40 MLS/HR; Start 06/25/17 at 09:30 Assessment/Plan Chief Complaint/Hosp Course IMPRESSION: 1. Acute hypercapnic respiratory failure, now intubated on mechanical ventilation. Status post thoracentesis right pleural effusion. 2. History of hypertension. 3. Atrial fibrillation with rapid ventricular rate. Still requiring rate control. 4. Diabetes mellitus. 5. Status post shock. 6. Acute renal failure. Likely ATN injury. Renal function appears to be stabilizing. Plan 1. Nocturnal noninvasive positive pressure ventilation 2. Rate control per cardiology. Continues diltiazem and amiodarone. 3. Hold sedation if tolerated. 4. Deep venous thrombosis and gastrointestinal prophylaxis. Overall prognosis remains guarded. Case discussed with primary care physician yesterday agree with Louie evaluation. Patient has significant neuromuscular weakness Problems: YAZMIN VARGAS MD, [facility] Jun 26, 2017 11:16
--- NOTE | 2017-06-26 12:07 | CONS ---
Date/Time of Note Date/Time of Note DATE: 06/26/17 TIME: 12:05 Assessment/Plan Assessment/Plan Additional Assessment/Plan 1.Hypotension-improved off of pressors/NL EF by echo this admit and now with HTN which is now uncontrolled - better now. BETTER now. 2. AF with RVR - pt had episodes of eren with 3 sec pauses on BB and dilt - will hold now, rate currently controlled RATE BETTER controlled - discuss with daughter - will hold off on pacer now. 3. Renal failure - renal team follows, con't to avoid nephrotoxic mes. Keep euvolemic. 4. Hypercarbic resp failure s/p extubation-improved off BIPAP - off BiPAP now - better o2 sat. 5. Hypothyroid - stable/ 6. Renal failure-ongoing Consultation Date/Type/Reason Admit Date/Time Jun 14, 2017 at 09:27 Type of Consultation: Pulmonary Referring Provider: SARAH VINCENT 24 HR Interval Summary Free Text/Dictation NO acute events - no new pause - discussed pacer with family - agree to hold off for no w ROS: No fever, no chills, no nausea, no vomiting, no diarrhea/constipation No recent weight changes No chest pain, no PND, no orthopnea No dizziness, blurred vision No thirst, no heat or cold intolerance Exam/Review of Systems Vital Signs Vitals Vital Signs Date Time Temp Pulse Resp B/P Pulse Ox O2 Delivery O2 Flow Rate FiO2 06/26/17 11:15 98.1 132 16 133/77 98 06/25/17 20:30 3.0 06/25/17 20:00 Nasal Cannula 06/25/17 07:52 30 Exam General: WN/WD/NAD, AOx 1-2 HEENT: Unicetric/atraumatic/EOMI (follows commands) NECK: JVD elevated, no thyromegaly Lymph: no lymphadenopathy HEART: regular with no S3, II/ systolic murmur at apex LUNGS: Coarse sounds ABD: soft, NT, ND, +BS : Intact Neuro: non focal SKIN: chronic changes EXT: trace edema Results Result Diagram: 06/26/17 0655 06/26/17 0655 Results 24 hrs Laboratory Tests Test 06/25/17 17:54 06/25/17 21:04 06/26/17 06:55 06/26/17 08:07 Bedside Glucose 100 116 121 White Blood Count 9.6 Red Blood Count 2.90 L Hemoglobin 8.5 L Hematocrit 28.6 L Mean Corpuscular Volume 98.6 Mean Corpuscular Hemoglobin 29.3 Mean Corpuscular Hemoglobin Concent 29.7 L Red Cell Distribution Width 14.6 H Platelet Count 228 Mean Platelet Volume 10.6 H Neutrophils % 79.0 H Lymphocytes % 8.8 L Monocytes % 11.2 H Eosinophils % 0.5 Basophils % 0.1 Nucleated Red Blood Cells % 0.0 Neutrophils # 7.6 H Lymphocytes # 0.8 Monocytes # 1.1 H Eosinophils # 0.1 Basophils # 0.0 Nucleated Red Blood Cells # 0.0 Sodium Level 147 H Potassium Level 4.1 Chloride Level 108 Carbon Dioxide Level 30 Anion Gap 13 Blood Urea Nitrogen 40 H Creatinine 1.33 H Glucose Level 153 Calcium Level 9.2 Medications Medications Current Medications Ondansetron HCl (Zofran Inj) 4 mg Q6H PRN IV NAUSEA AND/OR VOMITING Last administered on 06/16/17 00:28; Admin Dose 4 MG; Start 06/13/17 at 15:30 Acetaminophen (Tylenol Tab) 650 mg Q6H PRN PO PAIN LEVEL 1-3 OR FEVER Last administered on 06/24/17 16:33; Admin Dose 650 MG; Start 06/13/17 at 15:30 Docusate Sodium (Colace) 100 mg Q12H PRN PO CONSTIPATION; Start 06/13/17 at 15 :30 Magnesium Hydroxide (Milk Of Mag) 30 ml DAILY PRN PO CONSTIPATION; Start 06/13 at 15:30 Hydralazine HCl (Apresoline) 10 mg Q6H PRN IV ELEVATED BLOOD PRESSURE Last administered on 06/25/17 08:43; Admin Dose 10 MG; Start 06/13/17 at 15:30 Nitroglycerin (Nitroglycerin (Sl Tab) 0.4 Mg) 1 tab Q5M PRN SL ANGINA; Start 06/13/17 at 15:30 Aspirin (Aspirin) 325 mg DAILY PO Last administered on 06/26/17 09:49; Admin Dose 325 MG; Start 06/14/17 at 09:00 Atorvastatin Calcium (Lipitor) 10 mg HS PO Last administered on 06/16/17 21: 47; Admin Dose 10 MG; Start 06/13/17 at 21:00; Status Future Hold Levothyroxine Sodium (Synthroid) 100 mcg DAILY PO Last administered on 09:49; Admin Dose 100 MCG; Start 06/14/17 at 09:00 Montelukast Sodium (Singulair) 10 mg QHS PO Last administered on 06/25/17 21: 06; Admin Dose 10 MG; Start 06/13/17 at 21:00 Ranitidine HCl (Zantac) 150 mg HS PO Last administered on 06/25/17 21:06; Admin Dose 150 MG; Start 06/13/17 at 21:00 Insulin Glargine (Lantus) 10 unit DAILY@20 SC ; Start 06/14/17 at 20:00; Status Future Hold Diagnostic Test (Pha) (Accu-Chek) 1 ea 02 XX Last administered on 06/24/17 02 :03; Admin Dose 1 EA; Start 06/15/17 at 02:00 Miscellaneous Information 1 ea NOTE XX ; Start 06/14/17 at 06:00 Glucose (Glutose) 15 gm Q15M PRN PO DECREASED GLUCOSE; Start 06/14/17 at 06:00 Glucose (Glutose) 22.5 gm Q15M PRN PO DECREASED GLUCOSE; Start 06/14/17 at 06: 00 Dextrose (D50w Syringe) 25 ml Q15M PRN IV DECREASED GLUCOSE Last administered on 06/17/17 04:41; Admin Dose 25 ML; Start 06/14/17 at 06:00 Dextrose (D50w Syringe) 50 ml Q15M PRN IV DECREASED GLUCOSE; Start 06/14/17 at 06:00 Glucagon (Glucagen) 1 mg Q15M PRN IM DECREASED GLUCOSE; Start 06/14/17 at 06: 00 Glucose 15 gm 15 gm Q15M PRN BUCCAL DECREASED GLUCOSE; Start 06/14/17 at 06:00 Diltiazem HCl (Cardizem-D5W 125 Mg/125 ml Drip) 125 ml @ 0 mls/hr TITRATE IV Last administered on 06/19/17 16:59; Admin Dose 5 MLS/HR; Start 06/14/17 at 15:00 Sertraline HCl (Zoloft) 50 mg HS PO Last administered on 06/25/17 21:06; Admin Dose 50 MG; Start 06/15/17 at 21:00 Enoxaparin Sodium (Lovenox) 60 mg DAILY SC Last administered on 06/26/17 09: 55; Admin Dose 60 MG; Start 06/17/17 at 09:00 IV Flush (NS 10 ml) 10 ml PRN PRN IV IV PROTOCOL; Start 06/16/17 at 14:00 Haloperidol (Haldol) 1 mg Q12 PRN IV agitation Last administered on 06/16/17 21:56; Admin Dose 1 MG; Start 06/16/17 at 20:30 Metoprolol Tartrate (Lopressor) 50 mg BID PO Last administered on 06/23/17 20 :02; Admin Dose 50 MG; Start 06/19/17 at 21:00; Status Future hold Hydralazine HCl (Apresoline) 50 mg Q8 PO Last administered on 06/26/17 06:12 ; Admin Dose 50 MG; Start 06/21/17 at 14:00 Diltiazem HCl (Cardizem) 60 mg Q8 GTB Last administered on 06/26/17 06:12; Admin Dose 60 MG; Start 06/23/17 at 14:00; Status Future hold Ampicillin 500 mg 500 mg BID PO Last administered on 06/26/17 09:49; Admin Dose 500 MG; Start 06/24/17 at 18:00 Dextrose/Sodium Chloride (D5-1/2ns) 1,000 ml @ 40 mls/hr Q24H IV Last administered on 06/26/17 09:49; Admin Dose 40 MLS/HR; Start 06/25/17 at 09:30 LILIAN ABEBE MD Jun 26, 2017 12:07
--- NOTE | 2017-06-26 12:32 | PN ---
Date/Time of Note Date/Time of Note DATE: 06/26/17 TIME: 12:25 Assessment/Plan VTE Prophylaxis VTE Prophylaxis Intervention: LMWH Lines/Catheters IV Catheter Type (from Nrsg): PICC Line Central line still needed: No Urinary Cath still in place: Yes Reason Cath still needed: other (indicate) (weakness) Assessment/Plan Problems: (1) Respiratory failure with hypercapnia Status: Acute Comment: Continue nighttime bipap for now, start gentle physical therapy, consider Louie placement. (2) Bradycardia Status: Resolved (3) Atrial fibrillation with RVR Status: Chronic Comment: Medications adjustment per cardiology. (4) Chronic renal insufficiency Status: Chronic (5) Hypertension Status: Acute Comment: continue hydralazine ATC, resuming diltiazem per Cardiology. (6) Diabetes mellitus Status: Chronic Comment: stable on insulin Subjective 24 Hr Interval Summary Free Text/Dictation patient feeling better, on bipap at night only, daughter wants her to start Physical therapy to get out of bed tobi. Exam/Review of Systems Vital Signs Vitals Vital Signs Date Time Temp Pulse Resp B/P Pulse Ox O2 Delivery O2 Flow Rate FiO2 06/26/17 12:22 103 06/26/17 11:15 98.1 16 133/77 98 06/25/17 20:30 3.0 06/25/17 20:00 Nasal Cannula 06/25/17 07:52 30 Exam Constitutional: alert, oriented Head: atraumatic, normocephalic Eyes: nl conjunctiva, nl sclera ENMT: mucosa pink and moist, nl external ears & nose Respiratory: crackles/rales Cardiovascular: irregular rhythm, other (tachycardic) Musculoskeletal: swelling (mild edema of bilateral arms and legs) Results Result Diagram: 06/26/17 0655 06/26/17 0655 Results 24 hrs Laboratory Tests Test 06/25/17 17:54 06/25/17 21:04 06/26/17 06:55 06/26/17 08:07 Bedside Glucose 100 116 121 White Blood Count 9.6 Red Blood Count 2.90 L Hemoglobin 8.5 L Hematocrit 28.6 L Mean Corpuscular Volume 98.6 Mean Corpuscular Hemoglobin 29.3 Mean Corpuscular Hemoglobin Concent 29.7 L Red Cell Distribution Width 14.6 H Platelet Count 228 Mean Platelet Volume 10.6 H Neutrophils % 79.0 H Lymphocytes % 8.8 L Monocytes % 11.2 H Eosinophils % 0.5 Basophils % 0.1 Nucleated Red Blood Cells % 0.0 Neutrophils # 7.6 H Lymphocytes # 0.8 Monocytes # 1.1 H Eosinophils # 0.1 Basophils # 0.0 Nucleated Red Blood Cells # 0.0 Sodium Level 147 H Potassium Level 4.1 Chloride Level 108 Carbon Dioxide Level 30 Anion Gap 13 Blood Urea Nitrogen 40 H Creatinine 1.33 H Glucose Level 153 Calcium Level 9.2 Test 06/26/17 12:09 Bedside Glucose 111 Medications Medications Current Medications Ondansetron HCl (Zofran Inj) 4 mg Q6H PRN IV NAUSEA AND/OR VOMITING Last administered on 06/16/17 00:28; Admin Dose 4 MG; Start 06/13/17 at 15:30 Acetaminophen (Tylenol Tab) 650 mg Q6H PRN PO PAIN LEVEL 1-3 OR FEVER Last administered on 06/24/17 16:33; Admin Dose 650 MG; Start 06/13/17 at 15:30 Docusate Sodium (Colace) 100 mg Q12H PRN PO CONSTIPATION; Start 06/13/17 at 15 :30 Magnesium Hydroxide (Milk Of Mag) 30 ml DAILY PRN PO CONSTIPATION; Start 06/13 at 15:30 Hydralazine HCl (Apresoline) 10 mg Q6H PRN IV ELEVATED BLOOD PRESSURE Last administered on 06/25/17 08:43; Admin Dose 10 MG; Start 06/13/17 at 15:30 Nitroglycerin (Nitroglycerin (Sl Tab) 0.4 Mg) 1 tab Q5M PRN SL ANGINA; Start 06/13/17 at 15:30 Aspirin (Aspirin) 325 mg DAILY PO Last administered on 06/26/17 09:49; Admin Dose 325 MG; Start 06/14/17 at 09:00 Atorvastatin Calcium (Lipitor) 10 mg HS PO Last administered on 06/16/17 21: 47; Admin Dose 10 MG; Start 06/13/17 at 21:00; Status Future Hold Levothyroxine Sodium (Synthroid) 100 mcg DAILY PO Last administered on 09:49; Admin Dose 100 MCG; Start 06/14/17 at 09:00 Montelukast Sodium (Singulair) 10 mg QHS PO Last administered on 06/25/17 21: 06; Admin Dose 10 MG; Start 06/13/17 at 21:00 Ranitidine HCl (Zantac) 150 mg HS PO Last administered on 06/25/17 21:06; Admin Dose 150 MG; Start 06/13/17 at 21:00 Insulin Glargine (Lantus) 10 unit DAILY@20 SC ; Start 06/14/17 at 20:00; Status Future Hold Diagnostic Test (Pha) (Accu-Chek) 1 ea 02 XX Last administered on 06/24/17 02 :03; Admin Dose 1 EA; Start 06/15/17 at 02:00 Miscellaneous Information 1 ea NOTE XX ; Start 06/14/17 at 06:00 Glucose (Glutose) 15 gm Q15M PRN PO DECREASED GLUCOSE; Start 06/14/17 at 06:00 Glucose (Glutose) 22.5 gm Q15M PRN PO DECREASED GLUCOSE; Start 06/14/17 at 06: 00 Dextrose (D50w Syringe) 25 ml Q15M PRN IV DECREASED GLUCOSE Last administered on 06/17/17 04:41; Admin Dose 25 ML; Start 06/14/17 at 06:00 Dextrose (D50w Syringe) 50 ml Q15M PRN IV DECREASED GLUCOSE; Start 06/14/17 at 06:00 Glucagon (Glucagen) 1 mg Q15M PRN IM DECREASED GLUCOSE; Start 06/14/17 at 06: 00 Glucose 15 gm 15 gm Q15M PRN BUCCAL DECREASED GLUCOSE; Start 06/14/17 at 06:00 Diltiazem HCl (Cardizem-D5W 125 Mg/125 ml Drip) 125 ml @ 0 mls/hr TITRATE IV Last administered on 06/19/17 16:59; Admin Dose 5 MLS/HR; Start 06/14/17 at 15:00 Sertraline HCl (Zoloft) 50 mg HS PO Last administered on 06/25/17 21:06; Admin Dose 50 MG; Start 06/15/17 at 21:00 Enoxaparin Sodium (Lovenox) 60 mg DAILY SC Last administered on 06/26/17 09: 55; Admin Dose 60 MG; Start 06/17/17 at 09:00 IV Flush (NS 10 ml) 10 ml PRN PRN IV IV PROTOCOL; Start 06/16/17 at 14:00 Haloperidol (Haldol) 1 mg Q12 PRN IV agitation Last administered on 06/16/17 21:56; Admin Dose 1 MG; Start 06/16/17 at 20:30 Metoprolol Tartrate (Lopressor) 50 mg BID PO Last administered on 06/23/17 20 :02; Admin Dose 50 MG; Start 06/19/17 at 21:00; Status Future hold Hydralazine HCl (Apresoline) 50 mg Q8 PO Last administered on 06/26/17 06:12 ; Admin Dose 50 MG; Start 06/21/17 at 14:00 Diltiazem HCl (Cardizem) 60 mg Q8 GTB Last administered on 06/26/17 06:12; Admin Dose 60 MG; Start 06/23/17 at 14:00; Status Future hold Ampicillin 500 mg 500 mg BID PO Last administered on 06/26/17 09:49; Admin Dose 500 MG; Start 06/24/17 at 18:00 Dextrose/Sodium Chloride (D5-1/2ns) 1,000 ml @ 40 mls/hr Q24H IV Last administered on 06/26/17 09:49; Admin Dose 40 MLS/HR; Start 06/25/17 at 09:30 MAYNOR ASHLEY MD Jun 26, 2017 12:32
[2017-06-26] MEDS: RANITIDINE 150 MG TAB PO SCH (21:03)
[2017-06-26] MEDS: SERTRALINE 100 MG TAB PO SCH (21:03)
[2017-06-26] MEDS: MONTELUKAST 10 MG TAB PO SCH (21:03)
[2017-06-27] VITALS (11 sets, daily range): BP systolic 118–139; BP diastolic 61–77; PULSE 85–120; RESP 16–22
[2017-06-27] MEDS: ACCU-CHEK XX SCH (02:00)
[2017-06-27] MEDS: DILTIAZEM 60 MG TAB GTB SCH ×3 (06:22→22:00)
[2017-06-27] MEDS: INSULIN ASPART [NOVOLOG] 3 ML PEN SC SCH ×4 (07:25→21:00)
[2017-06-27] MEDS: AMPICILLIN 500 MG CAP PO SCH ×2 (08:45→21:32)
[2017-06-27] MEDS: LEVOTHYROXINE 100 MCG TAB PO SCH (08:45)
[2017-06-27] MEDS: ASPIRIN 325 MG TAB PO SCH (08:45)
[2017-06-27 08:54] LABS: BASOPHILS % 0.2 % (0.0-2.0); EOSINOPHILS # 0.1 10^3/ul (0.0-0.5); HEMATOCRIT 28.9 % (37.0-47.0); HEMOGLOBIN 8.6 g/dl (12.0-16.0); LYMPHOCYTES # 0.9 10^3/ul (0.8-2.9); LYMPHOCYTES % 8.6 % (15.0-51.0); MEAN CORPUSCULAR HEMOGLOBIN 29.9 pg (29.0-33.0); MEAN CORPUSCULAR HGB CONC 29.8 g/dl (32.0-37.0); MEAN CORPUSCULAR VOLUME 100.3 fl (82.0-101.0); MEAN PLATELET VOLUME 11.3 fl (7.4-10.4); MONOCYTES % 9.7 % (0.0-11.0); NEUTROPHIL # 8.4 10^3/ul (1.6-7.5); PLATELET COUNT 202 10^3/UL (140-415); RED BLOOD COUNT 2.88 10^6/ul (4.20-5.40); RED CELL DISTRIBUTION WIDTH 14.7 % (11.5-14.5); WHITE BLOOD COUNT 10.5 10^3/ul (4.8-10.8)
[2017-06-27 09:14] LABS: CREATININE 1.48 mg/dl (0.44-1.00); POTASSIUM 4.4 mmol/L (3.5-5.1)
[2017-06-27] MEDS: ENOXAPARIN 60 MG/0.6 ML SYG SC SCH (09:31)
--- NOTE | 2017-06-27 10:05 | CONS ---
Date/Time of Note Date/Time of Note DATE: 06/27/17 TIME: 10:04 Consult Date/Type/Reason Admit Date/Time Jun 14, 2017 at 09:27 Type of Consultation: Pulmonary Ordering Provider: SARAH VINCENT Subjective Patient comfortable. No acute distress. Objective Vital Signs Date Time Temp Pulse Resp B/P Pulse Ox O2 Delivery O2 Flow Rate FiO2 06/27/17 08:29 104 06/27/17 08:20 98.4 17 139/63 100 06/26/17 21:00 Nasal Cannula 2.0 06/25/17 07:52 30 Intake and Output 06/26/17 06/26/17 06/27/17 15:00 23:00 07:00 Intake Total 1180 ml 500 ml Output Total 300 ml 350 ml Balance 880 ml 150 ml Exam Elderly lady comfortable at rest. GENERAL: VITAL SIGNS: per chart NECK: Supple. No JVD or lymphadenopathy. CARDIAC EXAM: S1, S2. No added sounds or murmurs. CHEST: diminished air entry both lung bases. ABDOMEN: Soft, nontender. No guarding or rebound. EXTREMITIES: No cyanosis, clubbing or edema. NEUROLOGIC: Generalized weakness. No focal deficits. Results/Medications Result Diagram: 06/27/17 0745 06/27/17 0745 Results 24 hrs Laboratory Tests Test 06/26/17 12:09 06/26/17 17:43 06/26/17 21:02 06/27/17 07:45 Bedside Glucose 111 105 102 White Blood Count 10.5 Red Blood Count 2.88 L Hemoglobin 8.6 L Hematocrit 28.9 L Mean Corpuscular Volume 100.3 Mean Corpuscular Hemoglobin 29.9 Mean Corpuscular Hemoglobin Concent 29.8 L Red Cell Distribution Width 14.7 H Platelet Count 202 Mean Platelet Volume 11.3 H Neutrophils % 80.0 H Lymphocytes % 8.6 L Monocytes % 9.7 Eosinophils % 1.0 Basophils % 0.2 Nucleated Red Blood Cells % 0.0 Neutrophils # 8.4 H Lymphocytes # 0.9 Monocytes # 1.0 H Eosinophils # 0.1 Basophils # 0.0 Nucleated Red Blood Cells # 0.0 Sodium Level 145 H Potassium Level 4.4 Chloride Level 107 Carbon Dioxide Level 29 Anion Gap 13 Blood Urea Nitrogen 42 H Creatinine 1.48 H Glucose Level 101 # Calcium Level 9.0 Test 06/27/17 08:43 Bedside Glucose 103 Medications Current Medications Ondansetron HCl (Zofran Inj) 4 mg Q6H PRN IV NAUSEA AND/OR VOMITING Last administered on 06/16/17 00:28; Admin Dose 4 MG; Start 06/13/17 at 15:30 Acetaminophen (Tylenol Tab) 650 mg Q6H PRN PO PAIN LEVEL 1-3 OR FEVER Last administered on 06/24/17 16:33; Admin Dose 650 MG; Start 06/13/17 at 15:30 Docusate Sodium (Colace) 100 mg Q12H PRN PO CONSTIPATION; Start 06/13/17 at 15 :30 Magnesium Hydroxide (Milk Of Mag) 30 ml DAILY PRN PO CONSTIPATION; Start 06/13 at 15:30 Hydralazine HCl (Apresoline) 10 mg Q6H PRN IV ELEVATED BLOOD PRESSURE Last administered on 06/25/17 08:43; Admin Dose 10 MG; Start 06/13/17 at 15:30 Nitroglycerin (Nitroglycerin (Sl Tab) 0.4 Mg) 1 tab Q5M PRN SL ANGINA; Start 06/13/17 at 15:30 Aspirin (Aspirin) 325 mg DAILY PO Last administered on 06/27/17 08:45; Admin Dose 325 MG; Start 06/14/17 at 09:00 Atorvastatin Calcium (Lipitor) 10 mg HS PO Last administered on 06/16/17 21: 47; Admin Dose 10 MG; Start 06/13/17 at 21:00; Status Future Hold Levothyroxine Sodium (Synthroid) 100 mcg DAILY PO Last administered on 08:45; Admin Dose 100 MCG; Start 06/14/17 at 09:00 Montelukast Sodium (Singulair) 10 mg QHS PO Last administered on 06/26/17 21: 03; Admin Dose 10 MG; Start 06/13/17 at 21:00 Ranitidine HCl (Zantac) 150 mg HS PO Last administered on 06/26/17 21:03; Admin Dose 150 MG; Start 06/13/17 at 21:00 Insulin Glargine (Lantus) 10 unit DAILY@20 SC ; Start 06/14/17 at 20:00; Status Future Hold Diagnostic Test (Pha) (Accu-Chek) ea 02 XX Last administered on 06/24/17 02 :03; Admin Dose 1 EA; Start 06/15/17 at 02:00 Miscellaneous Information 1 ea NOTE XX ; Start 06/14/17 at 06:00 Glucose (Glutose) 15 gm Q15M PRN PO DECREASED GLUCOSE; Start 06/14/17 at 06:00 Glucose (Glutose) 22.5 gm Q15M PRN PO DECREASED GLUCOSE; Start 06/14/17 at 06: 00 Dextrose (D50w Syringe) 25 ml Q15M PRN IV DECREASED GLUCOSE Last administered on 06/17/17 04:41; Admin Dose 25 ML; Start 06/14/17 at 06:00 Dextrose (D50w Syringe) 50 ml Q15M PRN IV DECREASED GLUCOSE; Start 06/14/17 at 06:00 Glucagon (Glucagen) 1 mg Q15M PRN IM DECREASED GLUCOSE; Start 06/14/17 at 06: 00 Glucose 15 gm 15 gm Q15M PRN BUCCAL DECREASED GLUCOSE; Start 06/14/17 at 06:00 Diltiazem HCl (Cardizem-D5W 125 Mg/125 ml Drip) 125 ml @ 0 mls/hr TITRATE IV Last administered on 06/19/17 16:59; Admin Dose 5 MLS/HR; Start 06/14/17 at 15:00 Sertraline HCl (Zoloft) 50 mg HS PO Last administered on 06/26/17 21:03; Admin Dose 50 MG; Start 06/15/17 at 21:00 Enoxaparin Sodium (Lovenox) 60 mg DAILY SC Last administered on 06/27/17 09: 31; Admin Dose 60 MG; Start 06/17/17 at 09:00 IV Flush (NS 10 ml) 10 ml PRN PRN IV IV PROTOCOL; Start 06/16/17 at 14:00 Haloperidol (Haldol) 1 mg Q12 PRN IV agitation Last administered on 06/16/17 21:56; Admin Dose 1 MG; Start 06/16/17 at 20:30 Metoprolol Tartrate (Lopressor) 50 mg BID PO Last administered on 06/23/17 20 :02; Admin Dose 50 MG; Start 06/19/17 at 21:00; Status Future hold Hydralazine HCl (Apresoline) 50 mg Q8 PO Last administered on 06/27/17 06:20 ; Admin Dose 50 MG; Start 06/21/17 at 14:00 Diltiazem HCl (Cardizem) 60 mg Q8 GTB Last administered on 06/27/17 06:22; Admin Dose 60 MG; Start 06/23/17 at 14:00; Status Future hold Ampicillin 500 mg 500 mg BID PO Last administered on 06/27/17 08:45; Admin Dose 500 MG; Start 06/24/17 at 18:00 Dextrose/Sodium Chloride (D5-1/2ns) 1,000 ml @ 40 mls/hr Q24H IV Last administered on 06/26/17 09:49; Admin Dose 40 MLS/HR; Start 06/25/17 at 09:30 Assessment/Plan Chief Complaint/Hosp Course IMPRESSION: 1. Acute hypercapnic respiratory failure, now intubated on mechanical ventilation. Status post thoracentesis right pleural effusion. 2. History of hypertension. 3. Atrial fibrillation with rapid ventricular rate. Still requiring rate control. 4. Diabetes mellitus. 5. Status post shock. 6. Acute renal failure. Likely ATN injury. Renal function appears to be stabilizing. Plan 1. Nocturnal noninvasive positive pressure ventilation 2. Rate control per cardiology. Continues diltiazem and amiodarone. 3. Hold sedation if tolerated. 4. Deep venous thrombosis and gastrointestinal prophylaxis. Overall prognosis remains guarded. banco transfer Problems: YAZMIN VARGAS MD, [facility] Jun 27, 2017 10:05
[2017-06-27] MEDS: DEXTROSE 5%-0.45% NACL 1,000 ML IV SCH (11:32)
--- NOTE | 2017-06-27 13:43 | CONS ---
Date/Time of Note Date/Time of Note DATE: 06/27/17 TIME: 13:42 Assessment/Plan Assessment/Plan Additional Assessment/Plan 1.Hypotension-improved off of pressors/NL EF by echo this admit and now with HTN which is now uncontrolled - better now. BETTER now. 2. AF with RVR - pt had episodes of eren with 3 sec pauses on BB and dilt - will hold now, rate currently controlled RATE BETTER controlled - discuss with daughter - will hold off on pacer now. now with tachy - will add small dose BB to see if we can Rx tachy without pauses 3. Renal failure - renal team follows, con't to avoid nephrotoxic mes. Keep euvolemic. 4. Hypercarbic resp failure s/p extubation-improved off BIPAP - off BiPAP now - better o2 sat. 5. Hypothyroid - stable/ 6. Renal failure-ongoing Consultation Date/Type/Reason Admit Date/Time Jun 14, 2017 at 09:27 Type of Consultation: Pulmonary Referring Provider: SARAH VINCENT 24 HR Interval Summary Free Text/Dictation will add small dose BB to see if we can Rx tachy without pauses ROS: No fever, no chills, no nausea, no vomiting, no diarrhea/constipation No recent weight changes No chest pain, no PND, no orthopnea + tachy No dizziness, blurred vision No thirst, no heat or cold intolerance Exam/Review of Systems Vital Signs Vitals Vital Signs Date Time Temp Pulse Resp B/P Pulse Ox O2 Delivery O2 Flow Rate FiO2 06/27/17 12:28 85 06/27/17 10:33 3.0 06/27/17 08:20 98.4 17 139/63 100 06/26/17 21:00 Nasal Cannula 06/25/17 07:52 30 Intake and Output 06/26/17 06/26/17 06/27/17 15:00 23:00 07:00 Intake Total 1180 ml 500 ml Output Total 300 ml 350 ml Balance 880 ml 150 ml Exam General: WN/WD/NAD, AOx 2-3 HEENT: Unicetric/atraumatic/EOMI (follows commands) NECK: JVD elevated, no thyromegaly Lymph: no lymphadenopathy HEART: irregular with no S3, II/ systolic murmur at apex LUNGS: Coarse sounds ABD: soft, NT, ND, +BS : Intact Neuro: non focal SKIN: chronic changes EXT: trace edema Results Result Diagram: 06/27/17 0745 06/27/17 0745 Results 24 hrs Laboratory Tests Test 06/26/17 17:43 06/26/17 21:02 06/27/17 07:45 06/27/17 08:43 Bedside Glucose 105 102 103 White Blood Count 10.5 Red Blood Count 2.88 L Hemoglobin 8.6 L Hematocrit 28.9 L Mean Corpuscular Volume 100.3 Mean Corpuscular Hemoglobin 29.9 Mean Corpuscular Hemoglobin Concent 29.8 L Red Cell Distribution Width 14.7 H Platelet Count 202 Mean Platelet Volume 11.3 H Neutrophils % 80.0 H Lymphocytes % 8.6 L Monocytes % 9.7 Eosinophils % 1.0 Basophils % 0.2 Nucleated Red Blood Cells % 0.0 Neutrophils # 8.4 H Lymphocytes # 0.9 Monocytes # 1.0 H Eosinophils # 0.1 Basophils # 0.0 Nucleated Red Blood Cells # 0.0 Sodium Level 145 H Potassium Level 4.4 Chloride Level 107 Carbon Dioxide Level 29 Anion Gap 13 Blood Urea Nitrogen 42 H Creatinine 1.48 H Glucose Level 101 # Calcium Level 9.0 Test 06/27/17 11:35 Bedside Glucose 106 Medications Medications Current Medications Ondansetron HCl (Zofran Inj) 4 mg Q6H PRN IV NAUSEA AND/OR VOMITING Last administered on 06/16/17 00:28; Admin Dose 4 MG; Start 06/13/17 at 15:30 Acetaminophen (Tylenol Tab) 650 mg Q6H PRN PO PAIN LEVEL 1-3 OR FEVER Last administered on 06/24/17 16:33; Admin Dose 650 MG; Start 06/13/17 at 15:30 Docusate Sodium (Colace) 100 mg Q12H PRN PO CONSTIPATION; Start 06/13/17 at 15 :30 Magnesium Hydroxide (Milk Of Mag) 30 ml DAILY PRN PO CONSTIPATION; Start 06/13 at 15:30 Hydralazine HCl (Apresoline) 10 mg Q6H PRN IV ELEVATED BLOOD PRESSURE Last administered on 06/25/17 08:43; Admin Dose 10 MG; Start 06/13/17 at 15:30 Nitroglycerin (Nitroglycerin (Sl Tab) 0.4 Mg) 1 tab Q5M PRN SL ANGINA; Start 06/13/17 at 15:30 Aspirin (Aspirin) 325 mg DAILY PO Last administered on 06/27/17 08:45; Admin Dose 325 MG; Start 06/14/17 at 09:00 Atorvastatin Calcium (Lipitor) 10 mg HS PO Last administered on 06/16/17 21: 47; Admin Dose 10 MG; Start 06/13/17 at 21:00; Status Future Hold Levothyroxine Sodium (Synthroid) 100 mcg DAILY PO Last administered on 08:45; Admin Dose 100 MCG; Start 06/14/17 at 09:00 Montelukast Sodium (Singulair) 10 mg QHS PO Last administered on 06/26/17 21: 03; Admin Dose 10 MG; Start 06/13/17 at 21:00 Ranitidine HCl (Zantac) 150 mg HS PO Last administered on 06/26/17 21:03; Admin Dose 150 MG; Start 06/13/17 at 21:00 Insulin Glargine (Lantus) 10 unit DAILY@20 SC ; Start 06/14/17 at 20:00; Status Future Hold Diagnostic Test (Pha) (Accu-Chek) 1 ea 02 XX Last administered on 06/24/17 02 :03; Admin Dose 1 EA; Start 06/15/17 at 02:00 Miscellaneous Information 1 ea NOTE XX ; Start 06/14/17 at 06:00 Glucose (Glutose) 15 gm Q15M PRN PO DECREASED GLUCOSE; Start 06/14/17 at 06:00 Glucose (Glutose) 22.5 gm Q15M PRN PO DECREASED GLUCOSE; Start 06/14/17 at 06: 00 Dextrose (D50w Syringe) 25 ml Q15M PRN IV DECREASED GLUCOSE Last administered on 06/17/17 04:41; Admin Dose 25 ML; Start 06/14/17 at 06:00 Dextrose (D50w Syringe) 50 ml Q15M PRN IV DECREASED GLUCOSE; Start 06/14/17 at 06:00 Glucagon (Glucagen) 1 mg Q15M PRN IM DECREASED GLUCOSE; Start 06/14/17 at 06: 00 Glucose 15 gm 15 gm Q15M PRN BUCCAL DECREASED GLUCOSE; Start 06/14/17 at 06:00 Diltiazem HCl (Cardizem-D5W 125 Mg/125 ml Drip) 125 ml @ 0 mls/hr TITRATE IV Last administered on 06/19/17 16:59; Admin Dose 5 MLS/HR; Start 06/14/17 at 15:00 Sertraline HCl (Zoloft) 50 mg HS PO Last administered on 06/26/17 21:03; Admin Dose 50 MG; Start 06/15/17 at 21:00 Enoxaparin Sodium (Lovenox) 60 mg DAILY SC Last administered on 06/27/17 09: 31; Admin Dose 60 MG; Start 06/17/17 at 09:00 IV Flush (NS 10 ml) 10 ml PRN PRN IV IV PROTOCOL; Start 06/16/17 at 14:00 Haloperidol (Haldol) 1 mg Q12 PRN IV agitation Last administered on 06/16/17 21:56; Admin Dose 1 MG; Start 06/16/17 at 20:30 Metoprolol Tartrate (Lopressor) 50 mg BID PO Last administered on 06/23/17 20 :02; Admin Dose 50 MG; Start 06/19/17 at 21:00; Status Future hold Hydralazine HCl (Apresoline) 50 mg Q8 PO Last administered on 06/27/17 06:20 ; Admin Dose 50 MG; Start 06/21/17 at 14:00 Diltiazem HCl (Cardizem) 60 mg Q8 GTB Last administered on 06/27/17 06:22; Admin Dose 60 MG; Start 06/23/17 at 14:00; Status Future hold Ampicillin 500 mg 500 mg BID PO Last administered on 06/27/17 08:45; Admin Dose 500 MG; Start 06/24/17 at 18:00 Dextrose/Sodium Chloride (D5-1/2ns) 1,000 ml @ 40 mls/hr Q24H IV Last administered on 06/27/17 11:32; Admin Dose 40 MLS/HR; Start 06/25/17 at 09:30 LILIAN ABEBE MD Jun 27, 2017 13:43
[2017-06-27] MEDS ORDERED: SERTRALINE 50 MG TAB PO SCH (21:00)
[2017-06-27] MEDS: MONTELUKAST 10 MG TAB PO SCH (21:32)
[2017-06-27] MEDS: RANITIDINE 150 MG TAB PO SCH (21:32)
[2017-06-27] MEDS: ONDANSETRON 4 MG INJ IV PRN (21:40)
[2017-06-28] VITALS (39 sets, daily range): BP systolic 85–126; BP diastolic 43–77; PULSE 70–116; RESP 10–27
[2017-06-28] MEDS: ACCU-CHEK XX SCH (01:14)
[2017-06-28] MEDS: DILTIAZEM 60 MG TAB GTB SCH ×3 (05:45→21:45)
[2017-06-28] MEDS: AMPICILLIN 500 MG CAP PO SCH ×2 (09:00→20:52)
[2017-06-28] MEDS: LEVOTHYROXINE 100 MCG TAB PO SCH (09:00)
[2017-06-28] MEDS: ASPIRIN 325 MG TAB PO SCH (09:00)
[2017-06-28] MEDS: ENOXAPARIN 60 MG/0.6 ML SYG SC SCH (09:14)
[2017-06-28] MEDS: INSULIN ASPART [NOVOLOG] 3 ML PEN SC SCH ×4 (09:14→20:52)
[2017-06-28 09:40] LABS: Allen Test ACCEPTAB; Arterial Base Excess -0.6 mmol/L (-3.0-3); Arterial COHb 0.3 % (0.0-3.0); Arterial Fraction of Oxyhgb 98.5 % (93.0-99.0); Arterial HCO3 29.5 mmol/L (22.0-26.0); Arterial MetHb 0.3 % (0.0-1.5); Arterial Total Hemglobin 11.5 g/dl (12.0-18.0); MODE NASAL CANNULA
--- NOTE | 2017-06-28 10:05 | CONS ---
Date/Time of Note Date/Time of Note DATE: 06/28/17 TIME: 10:01 Consult Date/Type/Reason Admit Date/Time Jun 14, 2017 at 09:27 Type of Consultation: Pulmonary Ordering Provider: SARAH VINCENT Subjective Patient somnolent but arousable. More sleepy per family. Repeat arterial blood gas demonstrates worsening hypercapnic respiratory failure Objective Vital Signs Date Time Temp Pulse Resp B/P Pulse Ox O2 Delivery O2 Flow Rate FiO2 06/28/17 08:09 90 06/28/17 07:57 97.0 17 103/53 99 06/28/17 02:54 3.0 06/27/17 20:00 Nasal Cannula 06/25/17 07:52 30 Intake and Output 06/27/17 06/27/17 06/28/17 15:00 23:00 07:00 Intake Total 720 ml 250 ml Output Total 375 ml 500 ml Balance 345 ml -250 ml Exam Elderly lady comfortable at rest. GENERAL: VITAL SIGNS: per chart NECK: Supple. No JVD or lymphadenopathy. CARDIAC EXAM: S1, S2. No added sounds or murmurs. CHEST: diminished air entry both lung bases. ABDOMEN: Soft, nontender. No guarding or rebound. EXTREMITIES: No cyanosis, clubbing or edema. NEUROLOGIC: Generalized weakness. No focal deficits. Results/Medications Result Diagram: 06/27/17 0745 06/27/17 0745 Results 24 hrs Laboratory Tests Test 06/27/17 11:35 06/27/17 18:12 06/27/17 21:35 06/28/17 08:25 Bedside Glucose 106 104 111 162 Test 06/28/17 08:52 Blood Gas Specimen Source Blood arterial Arterial Blood Date Drawn 06/28/2017 9:22:11 AM Arterial Blood pH (Temp corrected) 7.174 *L Arterial Blood pCO2 (Temp correct) 82.1 *H Arterial Blood pO2 (Temp corrected) 185.2 H Arterial Blood HCO3 29.5 H Arterial Blood Base Excess -0.6 Arterial Blood Oxygen Saturation 99.1 [place] Test ACCEPTAB Arterial Blood Gas Puncture Site Right Radial Arterial Blood Carboxyhemoglobin 0.3 Arterial Blood Methemoglobin 0.3 Oxyhemoglobin Percent 98.5 Total Hemoglobin 11.5 L Blood Gas Temperature 37.0 Blood Gas Modality NASAL CANNULA FiO2 30.0 Blood Gas Critical Value Read Back RN MILLI Blood Gas Notified Whom AT Blood Gas Notified Time 06/28/2017 9:38:29 AM Medications Current Medications Ondansetron HCl (Zofran Inj) 4 mg Q6H PRN IV NAUSEA AND/OR VOMITING Last administered on 06/27/17 21:40; Admin Dose 4 MG; Start 06/13/17 at 15:30 Acetaminophen (Tylenol Tab) 650 mg Q6H PRN PO PAIN LEVEL 1-3 OR FEVER Last administered on 06/24/17 16:33; Admin Dose 650 MG; Start 06/13/17 at 15:30 Docusate Sodium (Colace) 100 mg Q12H PRN PO CONSTIPATION; Start 06/13/17 at 15 :30 Magnesium Hydroxide (Milk Of Mag) 30 ml DAILY PRN PO CONSTIPATION; Start 06/13 at 15:30 Hydralazine HCl (Apresoline) 10 mg Q6H PRN IV ELEVATED BLOOD PRESSURE Last administered on 06/25/17 08:43; Admin Dose 10 MG; Start 06/13/17 at 15:30 Nitroglycerin (Nitroglycerin (Sl Tab) 0.4 Mg) 1 tab Q5M PRN SL ANGINA; Start 06/13/17 at 15:30 Aspirin (Aspirin) 325 mg DAILY PO Last administered on 06/27/17 08:45; Admin Dose 325 MG; Start 06/14/17 at 09:00 Atorvastatin Calcium (Lipitor) 10 mg HS PO Last administered on 06/16/17 21: 47; Admin Dose 10 MG; Start 06/13/17 at 21:00; Status Future Hold Levothyroxine Sodium (Synthroid) 100 mcg DAILY PO Last administered on 08:45; Admin Dose 100 MCG; Start 06/14/17 at 09:00 Montelukast Sodium (Singulair) 10 mg QHS PO Last administered on 06/27/17 21: 32; Admin Dose 10 MG; Start 06/13/17 at 21:00 Ranitidine HCl (Zantac) 150 mg HS PO Last administered on 06/27/17 21:32; Admin Dose 150 MG; Start 06/13/17 at 21:00 Insulin Glargine (Lantus) 10 unit DAILY@20 SC ; Start 06/14/17 at 20:00; Status Future Hold Diagnostic Test (Pha) (Accu-Chek) 1 ea 02 XX Last administered on 06/24/17 02 :03; Admin Dose 1 EA; Start 06/15/17 at 02:00 Miscellaneous Information 1 ea NOTE XX ; Start 06/14/17 at 06:00 Glucose (Glutose) 15 gm Q15M PRN PO DECREASED GLUCOSE; Start 06/14/17 at 06:00 Glucose (Glutose) 22.5 gm Q15M PRN PO DECREASED GLUCOSE; Start 06/14/17 at 06: 00 Dextrose (D50w Syringe) 25 ml Q15M PRN IV DECREASED GLUCOSE Last administered on 06/17/17 04:41; Admin Dose 25 ML; Start 06/14/17 at 06:00 Dextrose (D50w Syringe) 50 ml Q15M PRN IV DECREASED GLUCOSE; Start 06/14/17 at 06:00 Glucagon (Glucagen) 1 mg Q15M PRN IM DECREASED GLUCOSE; Start 06/14/17 at 06: 00 Glucose 15 gm 15 gm Q15M PRN BUCCAL DECREASED GLUCOSE; Start 06/14/17 at 06:00 Diltiazem HCl (Cardizem-D5W 125 Mg/125 ml Drip) 125 ml @ 0 mls/hr TITRATE IV Last administered on 06/19/17 16:59; Admin Dose 5 MLS/HR; Start 06/14/17 at 15:00 Enoxaparin Sodium (Lovenox) 60 mg DAILY SC Last administered on 06/28/17 09: 14; Admin Dose 60 MG; Start 06/17/17 at 09:00 IV Flush (NS 10 ml) 10 ml PRN PRN IV IV PROTOCOL; Start 06/16/17 at 14:00 Haloperidol (Haldol) 1 mg Q12 PRN IV agitation Last administered on 06/16/17 21:56; Admin Dose 1 MG; Start 06/16/17 at 20:30 Metoprolol Tartrate (Lopressor) 50 mg BID PO Last administered on 06/23/17 20 :02; Admin Dose 50 MG; Start 06/19/17 at 21:00; Status Future hold Hydralazine HCl (Apresoline) 50 mg Q8 PO Last administered on 06/27/17 13:59 ; Admin Dose 50 MG; Start 06/21/17 at 14:00 Diltiazem HCl (Cardizem) 60 mg Q8 GTB Last administered on 06/27/17 13:58; Admin Dose 60 MG; Start 06/23/17 at 14:00; Status Future hold Ampicillin 500 mg 500 mg BID PO Last administered on 06/27/17 21:32; Admin Dose 500 MG; Start 06/24/17 at 18:00 Dextrose/Sodium Chloride (D5-1/2ns) 1,000 ml @ 40 mls/hr Q24H IV Last administered on 06/27/17 11:32; Admin Dose 40 MLS/HR; Start 06/25/17 at 09:30 Carvedilol (Coreg) 12.5 mg BID PO Last administered on 06/27/17 21:32; Admin Dose 12.5 MG; Start 06/27/17 at 21:00 Sertraline HCl (Zoloft) 50 mg HS PO Last administered on 06/27/17 21:32; Admin Dose 50 MG; Start 06/27/17 at 21:00 Assessment/Plan Chief Complaint/Hosp Course IMPRESSION: 1. Acute hypercapnic respiratory failure, placed back on BiPAP. Repeat arterial blood gas in several hours. Repeat chest x-ray. 2. History of hypertension. 3. Atrial fibrillation with rapid ventricular rate. Still requiring rate control. 4. Diabetes mellitus. 5. Status post shock. 6. Acute renal failure. Likely ATN injury. Renal function appears to be stabilizing. Plan 1. Nocturnal noninvasive positive pressure ventilation has to be used every night. 2. Rate control per cardiology. Continues diltiazem and amiodarone. 3. Hold sedation if tolerated. 4. Deep venous thrombosis and gastrointestinal prophylaxis. Continue telemetry care. May require transfer to ICU. Problems: YAZMIN VARGAS MD, [facility] Jun 28, 2017 10:05
[2017-06-28] MEDS ORDERED: FUROSEMIDE 20 MG INJ IV SCH (10:30)
--- NOTE | 2017-06-28 10:40 | CONS ---
Date/Time of Note Date/Time of Note DATE: 06/28/17 TIME: 10:35 Assessment/Plan Assessment/Plan Additional Assessment/Plan 1.Hypotension-reasonable - now with acute resp distress - brock discuss with Dr. Fulton. . 2. AF with RVR - pt had episodes of eren with 3 sec pauses on BB and dilt - will hold now, rate currently controlled RATE BETTER controlled - discuss with daughter - will hold off on pacer now. now with tachy - will add small dose BB to see if we can Rx tachy without pauses RATE controlled now despite resp distress. Pt did not get meds in am. 3. Renal failure - renal team follows, con't to avoid nephrotoxic mes. Keep euvolemic. 4. Hypercarbic resp failure s/p extubation-improved off BIPAP - off BiPAP now - better o2 sat. NOW with repertory distress - Dr. Fulton aware. 5. Hypothyroid - stable/ 6. Renal failure-ongoing Consultation Date/Type/Reason Admit Date/Time Jun 14, 2017 at 09:27 Type of Consultation: Pulmonary Referring Provider: SARAH VINCENT 24 HR Interval Summary Free Text/Dictation Now with resp decompensation - on BiPAP now - will monitor. ROS: No fever, no chills, no nausea, no vomiting, no diarrhea/constipation No recent weight changes No chest pain, no PND, no orthopnea - now acutely SOB No dizziness, blurred vision No thirst, no heat or cold intolerance Exam/Review of Systems Vital Signs Vitals Vital Signs Date Time Temp Pulse Resp B/P Pulse Ox O2 Delivery O2 Flow Rate FiO2 06/28/17 08:09 90 06/28/17 07:57 97.0 17 103/53 99 06/28/17 02:54 3.0 06/27/17 20:00 Nasal Cannula 06/25/17 07:52 30 Intake and Output 06/27/17 06/27/17 06/28/17 15:00 23:00 07:00 Intake Total 720 ml 250 ml Output Total 375 ml 500 ml Balance 345 ml -250 ml Exam General: WN/WD/NAD, AOx 1 confused HEENT: Unicetric/atraumatic/EOMI (does not follow commands) NECK: JVD elevated, no thyromegaly - BoPAP on Lymph: no lymphadenopathy HEART: regular with no S3, II/ systolic murmur at apex LUNGS: Coarse sounds ABD: soft, NT, ND, +BS : Intact Neuro: non focal SKIN: chronic changes EXT: trace edema Results Result Diagram: 06/27/17 0745 06/27/17 0745 Results 24 hrs Laboratory Tests Test 06/27/17 11:35 06/27/17 18:12 06/27/17 21:35 06/28/17 08:25 Bedside Glucose 106 104 111 162 Test 06/28/17 08:52 Blood Gas Specimen Source Blood arterial Arterial Blood Date Drawn 06/28/2017 9:22:11 AM Arterial Blood pH (Temp corrected) 7.174 *L Arterial Blood pCO2 (Temp correct) 82.1 *H Arterial Blood pO2 (Temp corrected) 185.2 H Arterial Blood HCO3 29.5 H Arterial Blood Base Excess -0.6 Arterial Blood Oxygen Saturation 99.1 [place] Test ACCEPTAB Arterial Blood Gas Puncture Site Right Radial Arterial Blood Carboxyhemoglobin 0.3 Arterial Blood Methemoglobin 0.3 Oxyhemoglobin Percent 98.5 Total Hemoglobin 11.5 L Blood Gas Temperature 37.0 Blood Gas Modality NASAL CANNULA FiO2 30.0 Blood Gas Critical Value Read Back LISA MORLEY Blood Gas Notified Whom AT Blood Gas Notified Time 06/28/2017 9:38:29 AM Medications Medications Current Medications Ondansetron HCl (Zofran Inj) 4 mg Q6H PRN IV NAUSEA AND/OR VOMITING Last administered on 06/27/17 21:40; Admin Dose 4 MG; Start 06/13/17 at 15:30 Acetaminophen (Tylenol Tab) 650 mg Q6H PRN PO PAIN LEVEL 1-3 OR FEVER Last administered on 06/24/17 16:33; Admin Dose 650 MG; Start 06/13/17 at 15:30 Docusate Sodium (Colace) 100 mg Q12H PRN PO CONSTIPATION; Start 06/13/17 at 15 :30 Magnesium Hydroxide (Milk Of Mag) 30 ml DAILY PRN PO CONSTIPATION; Start 06/13 at 15:30 Hydralazine HCl (Apresoline) 10 mg Q6H PRN IV ELEVATED BLOOD PRESSURE Last administered on 06/25/17 08:43; Admin Dose 10 MG; Start 06/13/17 at 15:30 Nitroglycerin (Nitroglycerin (Sl Tab) 0.4 Mg) 1 tab Q5M PRN SL ANGINA; Start 06/13/17 at 15:30 Aspirin (Aspirin) 325 mg DAILY PO Last administered on 06/27/17 08:45; Admin Dose 325 MG; Start 06/14/17 at 09:00 Atorvastatin Calcium (Lipitor) 10 mg HS PO Last administered on 06/16/17 21: 47; Admin Dose 10 MG; Start 06/13/17 at 21:00; Status Future Hold Levothyroxine Sodium (Synthroid) 100 mcg DAILY PO Last administered on 08:45; Admin Dose 100 MCG; Start 06/14/17 at 09:00 Montelukast Sodium (Singulair) 10 mg QHS PO Last administered on 06/27/17 21: 32; Admin Dose 10 MG; Start 06/13/17 at 21:00 Ranitidine HCl (Zantac) 150 mg HS PO Last administered on 06/27/17 21:32; Admin Dose 150 MG; Start 06/13/17 at 21:00 Insulin Glargine (Lantus) 10 unit DAILY@20 SC ; Start 06/14/17 at 20:00; Status Future Hold Diagnostic Test (Pha) (Accu-Chek) 1 ea 02 XX Last administered on 06/24/17 02 :03; Admin Dose 1 EA; Start 06/15/17 at 02:00 Miscellaneous Information 1 ea NOTE XX ; Start 06/14/17 at 06:00 Glucose (Glutose) 15 gm Q15M PRN PO DECREASED GLUCOSE; Start 06/14/17 at 06:00 Glucose (Glutose) 22.5 gm Q15M PRN PO DECREASED GLUCOSE; Start 06/14/17 at 06: 00 Dextrose (D50w Syringe) 25 ml Q15M PRN IV DECREASED GLUCOSE Last administered on 06/17/17 04:41; Admin Dose 25 ML; Start 06/14/17 at 06:00 Dextrose (D50w Syringe) 50 ml Q15M PRN IV DECREASED GLUCOSE; Start 06/14/17 at 06:00 Glucagon (Glucagen) 1 mg Q15M PRN IM DECREASED GLUCOSE; Start 06/14/17 at 06: 00 Glucose 15 gm 15 gm Q15M PRN BUCCAL DECREASED GLUCOSE; Start 06/14/17 at 06:00 Diltiazem HCl (Cardizem-D5W 125 Mg/125 ml Drip) 125 ml @ 0 mls/hr TITRATE IV Last administered on 06/19/17 16:59; Admin Dose 5 MLS/HR; Start 06/14/17 at 15:00 Enoxaparin Sodium (Lovenox) 60 mg DAILY SC Last administered on 06/28/17 09: 14; Admin Dose 60 MG; Start 06/17/17 at 09:00 IV Flush (NS 10 ml) 10 ml PRN PRN IV IV PROTOCOL; Start 06/16/17 at 14:00 Haloperidol (Haldol) 1 mg Q12 PRN IV agitation Last administered on 06/16/17 21:56; Admin Dose 1 MG; Start 06/16/17 at 20:30 Metoprolol Tartrate (Lopressor) 50 mg BID PO Last administered on 06/23/17 20 :02; Admin Dose 50 MG; Start 06/19/17 at 21:00; Status Future hold Hydralazine HCl (Apresoline) 50 mg Q8 PO Last administered on 06/27/17 13:59 ; Admin Dose 50 MG; Start 06/21/17 at 14:00 Diltiazem HCl (Cardizem) 60 mg Q8 GTB Last administered on 06/27/17 13:58; Admin Dose 60 MG; Start 06/23/17 at 14:00; Status Future hold Ampicillin 500 mg 500 mg BID PO Last administered on 06/27/17 21:32; Admin Dose 500 MG; Start 06/24/17 at 18:00 Dextrose/Sodium Chloride (D5-1/2ns) 1,000 ml @ 40 mls/hr Q24H IV Last administered on 06/27/17 11:32; Admin Dose 40 MLS/HR; Start 06/25/17 at 09:30 Carvedilol (Coreg) 12.5 mg BID PO Last administered on 06/27/17 21:32; Admin Dose 12.5 MG; Start 06/27/17 at 21:00 Sertraline HCl (Zoloft) 50 mg HS PO Last administered on 06/27/17 21:32; Admin Dose 50 MG; Start 06/27/17 at 21:00 LILIAN ABEBE MD Jun 28, 2017 10:40
[2017-06-28 11:49] LABS: CALCIUM 8.8 mg/dl (8.4-10.2); CREATININE 2.37 mg/dl (0.44-1.00); POTASSIUM 5.1 mmol/L (3.5-5.1)
[2017-06-28] MEDS ORDERED: SOD CHLORIDE 0.9% 500 ML IV ONE (12:30)
[2017-06-28 13:09] LABS: AADO2 Arterial 48.6 mmHg (7.0-24.0); Allen Test ACCEPTAB; Arterial Base Excess -0.6 mmol/L (-3.0-3); Arterial COHb 0.3 % (0.0-3.0); Arterial Fraction of Oxyhgb 95.6 % (93.0-99.0); Arterial HCO3 27.8 mmol/L (22.0-26.0); Arterial MetHb 0.2 % (0.0-1.5); Blood Gas IEPAP 22/8; Blood Gas PS 14; MODE MASK - BIPAP
--- NOTE | 2017-06-28 13:13 | PN ---
Date/Time of Note Date/Time of Note DATE: 06/28/17 TIME: 13:12 Assessment/Plan VTE Prophylaxis VTE Prophylaxis Intervention: LMWH Lines/Catheters IV Catheter Type (from [facility]): PICC Line Central line still needed: Yes Urinary Cath still in place: Yes Reason Cath still needed: other (indicate) (altered mental status.) Assessment/Plan Problems: (1) Hypotension Status: Acute Comment: Partially due to dehydration, improving after IV bolus. Continue IV fluid hydration as long as patient is lethargic and not eating well. Continue to monitor patient in ICU for 24 hours. (2) Respiratory failure with hypercapnia Status: Acute Comment: Patient has not been getting nocturnal BiPAP which she needs. Resume BiPAP treatment until ABG returns to normal then reduce to nocturnal BiPAP. (3) Chronic renal insufficiency Status: Chronic Comment: Increased BUN/creatinine may be due to poor p.o. intake the past 3 days per patient's daughter's report. We will need to keep patient on IV fluids until she is able to eat and drink better. (4) Atrial fibrillation with RVR Status: Chronic Comment: Resume cardiac meds once bp stabilizes. (5) Diabetes mellitus Status: Chronic Subjective 24 Hr Interval Summary Free Text/Dictation Patient more lethargic this morning, did not get bipap last night. Exam/Review of Systems Vital Signs Vitals Vital Signs Date Time Temp Pulse Resp B/P Pulse Ox O2 Delivery O2 Flow Rate FiO2 06/28/17 12:07 96 06/28/17 11:42 96.6 18 94/51 92 06/28/17 02:54 3.0 06/27/17 20:00 Nasal Cannula 06/25/17 07:52 30 Intake and Output 06/27/17 06/27/17 06/28/17 15:00 23:00 07:00 Intake Total 720 ml 250 ml Output Total 375 ml 500 ml Balance 345 ml -250 ml Exam Transferring to ICU for hypotension, respiratory failure with hypercapnea. Pt is lethargic, wearing BiPAP mask, nonverbal. Constitutional: non-verbal, other (lethargic,) Head: atraumatic, normocephalic ENMT: mucosa pink and moist, nl external ears & nose Respiratory: clear to auscultation, normal air movement Cardiovascular: regular rate and rhythm Gastrointestinal: non-tender, soft Musculoskeletal: nl extremities to inspection Extremities: normal pulses Results Result Diagram: 06/27/17 0745 06/28/17 1038 Results 24 hrs Laboratory Tests Test 06/27/17 18:12 06/27/17 21:35 06/28/17 08:25 06/28/17 08:52 Bedside Glucose 104 111 162 Blood Gas Specimen Source Blood arterial Arterial Blood Date Drawn 06/28/2017 9:22:11 AM Arterial Blood pH (Temp corrected) 7.174 *L Arterial Blood pCO2 (Temp correct) 82.1 *H Arterial Blood pO2 (Temp corrected) 185.2 H Arterial Blood HCO3 29.5 H Arterial Blood Base Excess -0.6 Arterial Blood Oxygen Saturation 99.1 [place] Test ACCEPTAB Arterial Blood Gas Puncture Site Right Radial Arterial Blood Carboxyhemoglobin 0.3 Arterial Blood Methemoglobin 0.3 Oxyhemoglobin Percent 98.5 Total Hemoglobin 11.5 L Blood Gas Temperature 37.0 Blood Gas Modality NASAL CANNULA FiO2 30.0 Blood Gas Critical Value Read Back LISA MORLEY Blood Gas Notified Whom AT Blood Gas Notified Time 06/28/2017 9:38:29 AM Test 06/28/17 10:38 06/28/17 11:54 06/28/17 13:00 Sodium Level 141 Potassium Level 5.1 Chloride Level 104 Carbon Dioxide Level 26 Anion Gap 16 Blood Urea Nitrogen 51 H Creatinine 2.37 H Glucose Level 124 Calcium Level 8.8 Bedside Glucose 131 Blood Gas Specimen Source Blood arterial Arterial Blood Date Drawn 06/28/2017 12:55:17 PM Arterial Blood pH (Temp corrected) 7.234 *L Arterial Blood pCO2 (Temp correct) 67.3 H Arterial Blood pO2 (Temp corrected) 86.2 Arterial Blood HCO3 27.8 H Arterial Blood Base Excess -0.6 Arterial Blood Oxygen Saturation 96.1 Carl[place] Test ACCEPTAB Arterial Blood Gas Puncture Site Right Radial Arterial Blood Carboxyhemoglobin 0.3 Arterial Blood Methemoglobin 0.2 Blood Gas A-a O2 Differential 48.6 H Oxyhemoglobin Percent 95.6 Total Hemoglobin 10.0 L Blood Gas Temperature 37.0 Blood Gas Respiration Rate 22.0 Blood Gas Actual Respiration Rate 22 Blood Gas Modality MASK - BIPAP FiO2 30.0 Blood Gas Pressure Support 14 Blood Gas IPAP/EPAP Ratio 22/8 Blood Gas Critical Value Read Back LISA MCCONNELL Blood Gas Notified Whom AT Blood Gas Notified Time 06/28/2017 1:09:39 PM Medications Medications Current Medications Ondansetron HCl (Zofran Inj) 4 mg Q6H PRN IV NAUSEA AND/OR VOMITING Last administered on 06/27/17 21:40; Admin Dose 4 MG; Start 06/13/17 at 15:30 Acetaminophen (Tylenol Tab) 650 mg Q6H PRN PO PAIN LEVEL 1-3 OR FEVER Last administered on 06/24/17 16:33; Admin Dose 650 MG; Start 06/13/17 at 15:30 Docusate Sodium (Colace) 100 mg Q12H PRN PO CONSTIPATION; Start 06/13/17 at 15 :30 Magnesium Hydroxide (Milk Of Mag) 30 ml DAILY PRN PO CONSTIPATION; Start 06/13 at 15:30 Hydralazine HCl (Apresoline) 10 mg Q6H PRN IV ELEVATED BLOOD PRESSURE Last administered on 06/25/17 08:43; Admin Dose 10 MG; Start 06/13/17 at 15:30 Nitroglycerin (Nitroglycerin (Sl Tab) 0.4 Mg) 1 tab Q5M PRN SL ANGINA; Start 06/13/17 at 15:30 Aspirin (Aspirin) 325 mg DAILY PO Last administered on 06/27/17 08:45; Admin Dose 325 MG; Start 06/14/17 at 09:00 Atorvastatin Calcium (Lipitor) 10 mg HS PO Last administered on 06/16/17 21: 47; Admin Dose 10 MG; Start 06/13/17 at 21:00; Status Future Hold Levothyroxine Sodium (Synthroid) 100 mcg DAILY PO Last administered on 08:45; Admin Dose 100 MCG; Start 06/14/17 at 09:00 Montelukast Sodium (Singulair) 10 mg QHS PO Last administered on 06/27/17 21: 32; Admin Dose 10 MG; Start 06/13/17 at 21:00 Ranitidine HCl (Zantac) 150 mg HS PO Last administered on 06/27/17 21:32; Admin Dose 150 MG; Start 06/13/17 at 21:00 Insulin Glargine (Lantus) 10 unit DAILY@20 SC ; Start 06/14/17 at 20:00; Status Future Hold Diagnostic Test (Pha) (Accu-Chek) 1 ea 02 XX Last administered on 06/24/17 02 :03; Admin Dose 1 EA; Start 06/15/17 at 02:00 Miscellaneous Information 1 ea NOTE XX ; Start 06/14/17 at 06:00 Glucose (Glutose) 15 gm Q15M PRN PO DECREASED GLUCOSE; Start 06/14/17 at 06:00 Glucose (Glutose) 22.5 gm Q15M PRN PO DECREASED GLUCOSE; Start 06/14/17 at 06: 00 Dextrose (D50w Syringe) 25 ml Q15M PRN IV DECREASED GLUCOSE Last administered on 06/17/17 04:41; Admin Dose 25 ML; Start 06/14/17 at 06:00 Dextrose (D50w Syringe) 50 ml Q15M PRN IV DECREASED GLUCOSE; Start 06/14/17 at 06:00 Glucagon (Glucagen) 1 mg Q15M PRN IM DECREASED GLUCOSE; Start 06/14/17 at 06: 00 Glucose 15 gm 15 gm Q15M PRN BUCCAL DECREASED GLUCOSE; Start 06/14/17 at 06:00 Diltiazem HCl (Cardizem-D5W 125 Mg/125 ml Drip) 125 ml @ 0 mls/hr TITRATE IV Last administered on 06/19/17 16:59; Admin Dose 5 MLS/HR; Start 06/14/17 at 15:00 Enoxaparin Sodium (Lovenox) 60 mg DAILY SC Last administered on 06/28/17 09: 14; Admin Dose 60 MG; Start 06/17/17 at 09:00 IV Flush (NS 10 ml) 10 ml PRN PRN IV IV PROTOCOL; Start 06/16/17 at 14:00 Haloperidol (Haldol) 1 mg Q12 PRN IV agitation Last administered on 06/16/17 21:56; Admin Dose 1 MG; Start 06/16/17 at 20:30 Metoprolol Tartrate (Lopressor) 50 mg BID PO Last administered on 06/23/17 20 :02; Admin Dose 50 MG; Start 06/19/17 at 21:00; Status Future hold Hydralazine HCl (Apresoline) 50 mg Q8 PO Last administered on 06/27/17 13:59 ; Admin Dose 50 MG; Start 06/21/17 at 14:00 Diltiazem HCl (Cardizem) 60 mg Q8 GTB Last administered on 06/27/17 13:58; Admin Dose 60 MG; Start 06/23/17 at 14:00; Status Future hold Ampicillin (Ampicillin) 500 mg BID PO Last administered on 06/27/17 21:32; Admin Dose 500 MG; Start 06/24/17 at 18:00 Carvedilol (Coreg) 12.5 mg BID PO Last administered on 06/27/17 21:32; Admin Dose 12.5 MG; Start 06/27/17 at 21:00 Sertraline HCl 50 mg 50 mg HS PO Last administered on 06/27/17 21:32; Admin Dose 50 MG; Start 06/27/17 at 21:00 Sodium Chloride (NS) 500 ml @ 500 mls/hr Q1H ONCE IV Last administered on 13:04; Admin Dose 500 MLS/HR; Start 06/28/17 at 12:30; Stop 06/28/17 at 13:29 MAYNOR ASHLEY MD Jun 28, 2017 13:13
--- NOTE | 2017-06-28 14:47 | RADRPT ---
PROCEDURE: XR Chest. CLINICAL INDICATION: Pneumonia, CHF. TECHNIQUE: Single frontal view of the chest was obtained. COMPARISON: 06/24/2017. FINDINGS: Left-sided PICC has been slightly retracted with tip at the mid SVC. The cardiomediastinal silhouette demonstrates enlargement of the cardiac silhouette. There are aorti c calcifications. There is pulmonary vascular congestion. There is increased hazy opacity of the bilateral lower lobes , likely representing increasing small to moderate bilateral pleural effusions with atelectasis. No definite pneumothorax. IMPRESSION: 1. Cardiomegaly with pulmonary vascular ingestion. Increased hazy opacity of the bilateral lower lob es, likely representing increasing small to moderate bilateral pleural effusions with atelectasis. 2. Left-sided PICC slightly retracted with tip at the mid SVC. RPTAT: EE Physician Francisco J Date Time Electronically viewed and signed by Aniya Talley Physician on 06/28/2017 14:47 /
[2017-06-28] MEDS: SOD CHLORIDE 0.9% 1,000 ML IV SCH (15:26)
[2017-06-28 17:33] LABS: AADO2 Arterial 73.7 mmHg (7.0-24.0); Allen Test ACCEPTAB; Arterial Base Excess -1.7 mmol/L (-3.0-3); Arterial COHb 0.2 % (0.0-3.0); Arterial Fraction of Oxyhgb 92.6 % (93.0-99.0); Arterial MetHb 0.3 % (0.0-1.5); Arterial Total Hemglobin 9.5 g/dl (12.0-18.0); Blood Gas IEPAP 22/8; MODE MASK - BIPAP
[2017-06-28] MEDS: MONTELUKAST 10 MG TAB PO SCH (20:51)
[2017-06-28] MEDS: RANITIDINE 150 MG TAB PO SCH (20:52)
[2017-06-29] VITALS (41 sets, daily range): BP systolic 92–129; BP diastolic 50–72; PULSE 46–98; RESP 8–25
[2017-06-29] MEDS: ACCU-CHEK XX SCH (02:00)
[2017-06-29 04:34] LABS: BASOPHILS % 0.1 % (0.0-2.0); EOSINOPHILS % 0.1 % (0.0-7.0); HEMATOCRIT 26.2 % (37.0-47.0); HEMOGLOBIN 7.9 g/dl (12.0-16.0); LYMPHOCYTES # 0.7 10^3/ul (0.8-2.9); LYMPHOCYTES % 7.4 % (15.0-51.0); MEAN CORPUSCULAR HGB CONC 30.2 g/dl (32.0-37.0); MEAN CORPUSCULAR VOLUME 99.6 fl (82.0-101.0); MEAN PLATELET VOLUME 10.3 fl (7.4-10.4); MONOCYTE # 0.5 10^3/ul (0.3-0.9); MONOCYTES % 5.3 % (0.0-11.0); NEUTROPHIL # 8.5 10^3/ul (1.6-7.5); NEUTROPHILS % 86.6 % (39.0-77.0); PLATELET COUNT 194 10^3/UL (140-415); RED BLOOD COUNT 2.63 10^6/ul (4.20-5.40); RED CELL DISTRIBUTION WIDTH 14.5 % (11.5-14.5); WHITE BLOOD COUNT 9.8 10^3/ul (4.8-10.8)
[2017-06-29 04:57] LABS: CALCIUM 8.5 mg/dl (8.4-10.2); CREATININE 2.76 mg/dl (0.44-1.00)
[2017-06-29] MEDS: SOD CHLORIDE 0.9% 1,000 ML IV SCH ×2 (05:30→12:11)
[2017-06-29] MEDS: DILTIAZEM 60 MG TAB GTB SCH ×3 (05:33→21:27)
[2017-06-29] MEDS: INSULIN ASPART [NOVOLOG] 3 ML PEN SC SCH ×4 (07:05→20:29)
[2017-06-29 07:56] LABS: Allen Test ACCEPTAB; Arterial Base Excess -1.7 mmol/L (-3.0-3); Arterial COHb 0.2 % (0.0-3.0); Arterial Fraction of Oxyhgb 97.1 % (93.0-99.0); Arterial HCO3 25.4 mmol/L (22.0-26.0); Arterial MetHb 0.2 % (0.0-1.5); Arterial Total Hemglobin 9.6 g/dl (12.0-18.0); Blood Gas IEPAP 22/8; MODE MASK - BIPAP
[2017-06-29] MEDS: ASPIRIN 325 MG TAB PO SCH (09:00)
[2017-06-29] MEDS: LEVOTHYROXINE 100 MCG TAB PO SCH (09:07)
[2017-06-29] MEDS: AMPICILLIN 500 MG CAP PO SCH ×2 (09:08→20:28)
[2017-06-29] MEDS: ENOXAPARIN 60 MG/0.6 ML SYG SC SCH (09:09)
--- NOTE | 2017-06-29 10:28 | RADRPT ---
PROCEDURE: XR Chest. CLINICAL INDICATION: Pneumonia. CHF. . TECHNIQUE: Single frontal chest x-ray. COMPARISON: 06/28/2017 FINDINGS: There has been placement of a nasogastric tube with tip extending into the stomach and seen. Left ar m PICC line is in place unchanged. Small bilateral pleural effusions are stable. There are no alveol ar infiltrates or edema. .. Cardiomegaly with calcific atherosclerosis of the aorta is present.. Th e osseous structures are intact. IMPRESSION: Placement of nasogastric tube with tip extending into the stomach. Left arm PICC line in place. Bilateral pleural effusions are stable.. RPTAT: GG .Bao Perez MD, MD Date Time Electronically viewed and signed by .Bao Perez MD, MD on 06/29/2017 10:28 .L/
--- NOTE | 2017-06-29 10:45 | CONS ---
Date/Time of Note Date/Time of Note DATE: 06/29/17 TIME: 10:43 Consult Date/Type/Reason Admit Date/Time Jun 14, 2017 at 09:27 Type of Consultation: Pulmonary Ordering Provider: SARAH VINCENT Subjective Transfer to ICU yesterday for hypercapnic respiratory failure. Required BiPAP overnight and this morning. More alert. Remains hemodynamically stable. Objective Vital Signs Date Time Temp Pulse Resp B/P Pulse Ox O2 Delivery O2 Flow Rate FiO2 06/29/17 08:00 77 06/29/17 06:00 20 110/63 99 BIPAP 06/29/17 05:30 30 06/29/17 04:00 97.7 06/28/17 02:54 3.0 Intake and Output 06/28/17 06/28/17 06/29/17 14:59 22:59 06:59 Intake Total 70 ml 350 ml 560 ml Output Total 20 ml 120 ml 80 ml Balance 50 ml 230 ml 480 ml Exam GENERAL: Elderly lady appears comfortable at rest no acute distress VITAL SIGNS: per chart NECK: Supple. No JVD or lymphadenopathy. CARDIAC EXAM: S1, S2. No added sounds or murmurs. CHEST: Diminished air entry right base ABDOMEN: Soft, nontender. No guarding or rebound. Diminished bowel sounds EXTREMITIES: No cyanosis, clubbing or edema. NEUROLOGIC: Generalized weakness. Results/Medications Result Diagram: 06/29/17 0400 06/29/17 0400 Results 24 hrs Chest x-ray Increasing right effusion Laboratory Tests Test 06/28/17 11:54 06/28/17 13:00 06/28/17 13:56 06/28/17 17:00 Bedside Glucose 131 92 Blood Gas Specimen Source Blood arterial Blood arterial Arterial Blood Date Drawn 06/28/2017 12:55:17 PM 06/28/2017 5:20:30 PM Arterial Blood pH (Temp corrected) 7.234 *L 7.255 *L Arterial Blood pCO2 (Temp correct) 67.3 H 59.9 H Arterial Blood pO2 (Temp corrected) 86.2 69.8 L Arterial Blood HCO3 27.8 H 26.0 Arterial Blood Base Excess -0.6 -1.7 Arterial Blood Oxygen Saturation 96.1 93.1 L Carl[place] Test ACCEPTAB ACCEPTAB Arterial Blood Gas Puncture Site Right Radial Right Radial Arterial Blood Carboxyhemoglobin 0.3 0.2 Arterial Blood Methemoglobin 0.2 0.3 Blood Gas A-a O2 Differential 48.6 H 73.7 H Oxyhemoglobin Percent 95.6 92.6 L Total Hemoglobin 10.0 L 9.5 L Blood Gas Temperature 37.0 37.0 Blood Gas Respiration Rate 22.0 22.0 Blood Gas Actual Respiration Rate 22 22 Blood Gas Modality MASK - BIPAP MASK - BIPAP FiO2 30.0 30.0 Blood Gas Pressure Support 14 Blood Gas IPAP/EPAP Ratio 25/03 25/03 Blood Gas Critical Value Read Back LISA TAMAYO RN Blood Gas Notified Whom AT DEJA,[employer] Blood Gas Notified Time 06/28/2017 1:09:39 PM 06/28/2017 5:33:01 PM Blood Gas Tidal Volume 331.0 Test 06/28/17 17:55 06/28/17 20:51 06/29/17 04:00 06/29/17 07:00 Bedside Glucose 90 99 White Blood Count 9.8 Red Blood Count 2.63 L Hemoglobin 7.9 L Hematocrit 26.2 L Mean Corpuscular Volume 99.6 Mean Corpuscular Hemoglobin 30.0 Mean Corpuscular Hemoglobin Concent 30.2 L Red Cell Distribution Width 14.5 Platelet Count 194 Mean Platelet Volume 10.3 Neutrophils % 86.6 H Lymphocytes % 7.4 L Monocytes % 5.3 Eosinophils % 0.1 Basophils % 0.1 Nucleated Red Blood Cells % 0.0 Neutrophils # 8.5 H Lymphocytes # 0.7 L Monocytes # 0.5 Eosinophils # 0.0 Basophils # 0.0 Nucleated Red Blood Cells # 0.0 Sodium Level 143 Potassium Level 5.0 Chloride Level 107 Carbon Dioxide Level 27 Anion Gap 14 Blood Urea Nitrogen 55 H Creatinine 2.76 H Glucose Level 84 # Calcium Level 8.5 Blood Gas Specimen Source Blood arterial Arterial Blood Date Drawn 06/29/2017 7:40:46 AM Arterial Blood pH (Temp corrected) 7.278 *L Arterial Blood pCO2 (Temp correct) 55.6 H Arterial Blood pO2 (Temp corrected) 107.6 H Arterial Blood HCO3 25.4 Arterial Blood Base Excess -1.7 Arterial Blood Oxygen Saturation 97.5 Carl[place] Test ACCEPTAB Arterial Blood Gas Puncture Site Right Radial Arterial Blood Carboxyhemoglobin 0.2 Arterial Blood Methemoglobin 0.2 Blood Gas A-a O2 Differential 41.0 H Oxyhemoglobin Percent 97.1 Total Hemoglobin 9.6 L Blood Gas Temperature 37.0 Blood Gas Respiration Rate 22.0 Blood Gas Actual Respiration Rate 22 Blood Gas Modality MASK - BIPAP FiO2 30.0 Blood Gas Low PEEP Setting 8.0 Blood Gas IPAP/EPAP Ratio 22/8 Blood Gas Critical Value Read Back Andry MCCONNELL RN Blood Gas Notified Whom Yareli LUO Blood Gas Notified Time 06/29/2017 7:56:16 AM Test 06/29/17 08:47 Bedside Glucose 78 Medications Current Medications Ondansetron HCl (Zofran Inj) 4 mg Q6H PRN IV NAUSEA AND/OR VOMITING Last administered on 06/27/17 21:40; Admin Dose 4 MG; Start 06/13/17 at 15:30 Acetaminophen (Tylenol Tab) 650 mg Q6H PRN PO PAIN LEVEL 1-3 OR FEVER Last administered on 06/24/17 16:33; Admin Dose 650 MG; Start 06/13/17 at 15:30 Docusate Sodium (Colace) 100 mg Q12H PRN PO CONSTIPATION; Start 06/13/17 at 15 :30 Magnesium Hydroxide (Milk Of Mag) 30 ml DAILY PRN PO CONSTIPATION; Start 06/13 at 15:30 Hydralazine HCl (Apresoline) 10 mg Q6H PRN IV ELEVATED BLOOD PRESSURE Last administered on 06/25/17 08:43; Admin Dose 10 MG; Start 06/13/17 at 15:30 Nitroglycerin (Nitroglycerin (Sl Tab) 0.4 Mg) 1 tab Q5M PRN SL ANGINA; Start 06/13/17 at 15:30 Aspirin (Aspirin) 325 mg DAILY PO Last administered on 06/27/17 08:45; Admin Dose 325 MG; Start 06/14/17 at 09:00 Atorvastatin Calcium (Lipitor) 10 mg HS PO Last administered on 06/16/17 21: 47; Admin Dose 10 MG; Start 06/13/17 at 21:00; Status Future Hold Levothyroxine Sodium (Synthroid) 100 mcg DAILY PO Last administered on 09:07; Admin Dose 100 MCG; Start 06/14/17 at 09:00 Montelukast Sodium (Singulair) 10 mg QHS PO Last administered on 06/28/17 20: 51; Admin Dose 10 MG; Start 06/13/17 at 21:00 Ranitidine HCl (Zantac) 150 mg HS PO Last administered on 06/28/17 20:52; Admin Dose 150 MG; Start 06/13/17 at 21:00 Insulin Glargine (Lantus) 10 unit DAILY@20 SC ; Start 06/14/17 at 20:00; Status Future Hold Diagnostic Test (Pha) (Accu-Chek) 1 ea 02 XX Last administered on 06/24/17 02 :03; Admin Dose 1 EA; Start 06/15/17 at 02:00 Miscellaneous Information 1 ea NOTE XX ; Start 06/14/17 at 06:00 Glucose (Glutose) 15 gm Q15M PRN PO DECREASED GLUCOSE; Start 06/14/17 at 06:00 Glucose (Glutose) 22.5 gm Q15M PRN PO DECREASED GLUCOSE; Start 06/14/17 at 06: 00 Dextrose (D50w Syringe) 25 ml Q15M PRN IV DECREASED GLUCOSE Last administered on 06/17/17 04:41; Admin Dose 25 ML; Start 06/14/17 at 06:00 Dextrose (D50w Syringe) 50 ml Q15M PRN IV DECREASED GLUCOSE; Start 06/14/17 at 06:00 Glucagon (Glucagen) 1 mg Q15M PRN IM DECREASED GLUCOSE; Start 06/14/17 at 06: 00 Glucose 15 gm 15 gm Q15M PRN BUCCAL DECREASED GLUCOSE; Start 06/14/17 at 06:00 Diltiazem HCl (Cardizem-D5W 125 Mg/125 ml Drip) 125 ml @ 0 mls/hr TITRATE IV Last administered on 06/19/17 16:59; Admin Dose 5 MLS/HR; Start 06/14/17 at 15:00 Enoxaparin Sodium (Lovenox) 60 mg DAILY SC Last administered on 06/29/17 09: 09; Admin Dose 60 MG; Start 06/17/17 at 09:00 IV Flush (NS 10 ml) 10 ml PRN PRN IV IV PROTOCOL; Start 06/16/17 at 14:00 Haloperidol (Haldol) 1 mg Q12 PRN IV agitation Last administered on 06/16/17 21:56; Admin Dose 1 MG; Start 06/16/17 at 20:30 Metoprolol Tartrate (Lopressor) 50 mg BID PO Last administered on 06/23/17 20 :02; Admin Dose 50 MG; Start 06/19/17 at 21:00; Status Future hold Hydralazine HCl (Apresoline) 50 mg Q8 PO Last administered on 06/27/17 13:59 ; Admin Dose 50 MG; Start 06/21/17 at 14:00 Diltiazem HCl (Cardizem) 60 mg Q8 GTB Last administered on 06/29/17 05:33; Admin Dose 60 MG; Start 06/23/17 at 14:00; Status Future hold Ampicillin (Ampicillin) 500 mg BID PO Last administered on 06/29/17 09:08; Admin Dose 500 MG; Start 06/24/17 at 18:00 Carvedilol 12.5 mg 12.5 mg BID PO Last administered on 06/29/17 09:08; Admin Dose 12.5 MG; Start 06/27/17 at 21:00 Sodium Chloride (NS) 1,000 ml @ 70 mls/hr [id number] IV Last administered on 05:30; Admin Dose 70 MLS/HR; Start 06/28/17 at 15:30 Assessment/Plan Chief Complaint/Hosp Course IMPRESSION: 1. Acute hypercapnic respiratory failure, placed back on BiPAP. Repeat arterial blood gas in several hours. Repeat chest x-ray shows increasing right pleural effusion previous thoracentesis been performed 2. History of hypertension. 3. Atrial fibrillation with rapid ventricular rate. Still requiring rate control. 4. Diabetes mellitus. 5. Status post shock. 6. Acute renal failure. Likely ATN injury. Renal function appears to be stabilizing. Plan 1. Continue BiPAP. Thoracentesis right lung. Pleural fluid studies again. 2. Rate control per cardiology. 3. No sedation. 4. Deep venous thrombosis and gastrointestinal prophylaxis. 5. Aspiration precautions. N.p.o. whilst on BiPAP. Problems: YAZMIN VARGAS MD, [facility] Jun 29, 2017 10:45
--- NOTE | 2017-06-29 11:14 | CONS ---
Date/Time of Note Date/Time of Note DATE: 06/29/17 TIME: 11:11 Assessment/Plan Assessment/Plan Additional Assessment/Plan 1.Hypotension-reasonable - now with acute resp distress - brock discuss with Dr. Fulton. Better now - responded well to BiPAP. 2. AF with RVR - pt had episodes of eren with 3 sec pauses on BB and dilt - will hold now, rate currently controlled RATE BETTER controlled - discuss with daughter - will hold off on pacer now. now with tachy - will add small dose BB to see if we can Rx tachy without pauses RATE controlled now despite resp distress. Pt did not get meds in am. RATE CONTROLLED NOW. 3. Renal failure - renal team follows, con't to avoid nephrotoxic mes. Keep euvolemic. POOr urine output. 4. Hypercarbic resp failure s/p extubation-improved off BIPAP - off BiPAP now - better o2 sat. NOW with repertory distress - Dr. Fulton aware. Now with pleural effusion -plan for thoracocentesis now. 5. Hypothyroid - stable/ 6. Renal failure-ongoing Consultation Date/Type/Reason Admit Date/Time Jun 14, 2017 at 09:27 Type of Consultation: Pulmonary Referring Provider: SARAH VINCENT 24 HR Interval Summary Free Text/Dictation Pt in ICU now - no CP noted - responded to BiPAP - poor urine outpuit = plan for thoracocentesis. ROS: No fever, no chills, no nausea, no vomiting, no diarrhea/constipation No recent weight changes No chest pain, no PND, no orthopnea + SOB No dizziness, blurred vision No thirst, no heat or cold intolerance Exam/Review of Systems Vital Signs Vitals Vital Signs Date Time Temp Pulse Resp B/P Pulse Ox O2 Delivery O2 Flow Rate FiO2 06/29/17 08:00 77 06/29/17 06:00 20 110/63 99 BIPAP 06/29/17 05:30 30 06/29/17 04:00 97.7 06/28/17 02:54 3.0 Intake and Output 06/28/17 06/28/17 06/29/17 15:00 23:00 07:00 Intake Total 140 ml 350 ml 490 ml Output Total 40 ml 110 ml 70 ml Balance 100 ml 240 ml 420 ml Exam General: WN/WD/NAD, AOx 0-1 HEENT: Unicetric/atraumatic/EOMI (does not follow commands) NECK: JVD elevated, no thyromegaly Lymph: no lymphadenopathy HEART: regular with no S3, II/ systolic murmur at apex LUNGS: Coarse sounds ABD: soft, NT, ND, +BS : Intact Neuro: non focal SKIN: chronic changes EXT: trace edema Results Result Diagram: 06/29/17 0400 06/29/17 0400 Results 24 hrs Laboratory Tests Test 06/28/17 11:54 06/28/17 13:00 06/28/17 13:56 06/28/17 17:00 Bedside Glucose 131 92 Blood Gas Specimen Source Blood arterial Blood arterial Arterial Blood Date Drawn 06/28/2017 12:55:17 PM 06/28/2017 5:20:30 PM Arterial Blood pH (Temp corrected) 7.234 *L 7.255 *L Arterial Blood pCO2 (Temp correct) 67.3 H 59.9 H Arterial Blood pO2 (Temp corrected) 86.2 69.8 L Arterial Blood HCO3 27.8 H 26.0 Arterial Blood Base Excess -0.6 -1.7 Arterial Blood Oxygen Saturation 96.1 93.1 L [place] Test ACCEPTAB ACCEPTAB Arterial Blood Gas Puncture Site Right Radial Right Radial Arterial Blood Carboxyhemoglobin 0.3 0.2 Arterial Blood Methemoglobin 0.2 0.3 Blood Gas A-a O2 Differential 48.6 H 73.7 H Oxyhemoglobin Percent 95.6 92.6 L Total Hemoglobin 10.0 L 9.5 L Blood Gas Temperature 37.0 37.0 Blood Gas Respiration Rate 22.0 22.0 Blood Gas Actual Respiration Rate 22 22 Blood Gas Modality MASK - BIPAP MASK - BIPAP FiO2 30.0 30.0 Blood Gas Pressure Support 14 Blood Gas IPAP/EPAP Ratio 22/8 8 Blood Gas Critical Value Read Back LISA TAMAYO RN Blood Gas Notified Whom AT [employer] Blood Gas Notified Time 06/28/2017 1:09:39 PM 06/28/2017 5:33:01 PM Blood Gas Tidal Volume 331.0 Test 06/28/17 17:55 06/28/17 20:51 06/29/17 04:00 06/29/17 07:00 Bedside Glucose 90 99 White Blood Count 9.8 Red Blood Count 2.63 L Hemoglobin 7.9 L Hematocrit 26.2 L Mean Corpuscular Volume 99.6 Mean Corpuscular Hemoglobin 30.0 Mean Corpuscular Hemoglobin Concent 30.2 L Red Cell Distribution Width 14.5 Platelet Count 194 Mean Platelet Volume 10.3 Neutrophils % 86.6 H Lymphocytes % 7.4 L Monocytes % 5.3 Eosinophils % 0.1 Basophils % 0.1 Nucleated Red Blood Cells % 0.0 Neutrophils # 8.5 H Lymphocytes # 0.7 L Monocytes # 0.5 Eosinophils # 0.0 Basophils # 0.0 Nucleated Red Blood Cells # 0.0 Sodium Level 143 Potassium Level 5.0 Chloride Level 107 Carbon Dioxide Level 27 Anion Gap 14 Blood Urea Nitrogen 55 H Creatinine 2.76 H Glucose Level 84 # Calcium Level 8.5 Blood Gas Specimen Source Blood arterial Arterial Blood Date Drawn 06/29/2017 7:40:46 AM Arterial Blood pH (Temp corrected) 7.278 *L Arterial Blood pCO2 (Temp correct) 55.6 H Arterial Blood pO2 (Temp corrected) 107.6 H Arterial Blood HCO3 25.4 Arterial Blood Base Excess -1.7 Arterial Blood Oxygen Saturation 97.5 [place] Test ACCEPTAB Arterial Blood Gas Puncture Site Right Radial Arterial Blood Carboxyhemoglobin 0.2 Arterial Blood Methemoglobin 0.2 Blood Gas A-a O2 Differential 41.0 H Oxyhemoglobin Percent 97.1 Total Hemoglobin 9.6 L Blood Gas Temperature 37.0 Blood Gas Respiration Rate 22.0 Blood Gas Actual Respiration Rate 22 Blood Gas Modality MASK - BIPAP FiO2 30.0 Blood Gas Low PEEP Setting 8.0 Blood Gas IPAP/EPAP Ratio 22/8 Blood Gas Critical Value Read Back Andry MCCONNELL RN Blood Gas Notified Whom Yareli LUO Blood Gas Notified Time 06/29/2017 7:56:16 AM Test 06/29/17 08:47 Bedside Glucose 78 Medications Medications Current Medications Ondansetron HCl (Zofran Inj) 4 mg Q6H PRN IV NAUSEA AND/OR VOMITING Last administered on 06/27/17 21:40; Admin Dose 4 MG; Start 06/13/17 at 15:30 Acetaminophen (Tylenol Tab) 650 mg Q6H PRN PO PAIN LEVEL 1-3 OR FEVER Last administered on 06/24/17 16:33; Admin Dose 650 MG; Start 06/13/17 at 15:30 Docusate Sodium (Colace) 100 mg Q12H PRN PO CONSTIPATION; Start 06/13/17 at 15 :30 Magnesium Hydroxide (Milk Of Mag) 30 ml DAILY PRN PO CONSTIPATION; Start 06/13 at 15:30 Hydralazine HCl (Apresoline) 10 mg Q6H PRN IV ELEVATED BLOOD PRESSURE Last administered on 06/25/17 08:43; Admin Dose 10 MG; Start 06/13/17 at 15:30 Nitroglycerin (Nitroglycerin (Sl Tab) 0.4 Mg) 1 tab Q5M PRN SL ANGINA; Start 06/13/17 at 15:30 Aspirin (Aspirin) 325 mg DAILY PO Last administered on 06/27/17 08:45; Admin Dose 325 MG; Start 06/14/17 at 09:00 Atorvastatin Calcium (Lipitor) 10 mg HS PO Last administered on 06/16/17 21: 47; Admin Dose 10 MG; Start 06/13/17 at 21:00; Status Future Hold Levothyroxine Sodium (Synthroid) 100 mcg DAILY PO Last administered on 09:07; Admin Dose 100 MCG; Start 06/14/17 at 09:00 Montelukast Sodium (Singulair) 10 mg QHS PO Last administered on 06/28/17 20: 51; Admin Dose 10 MG; Start 06/13/17 at 21:00 Ranitidine HCl (Zantac) 150 mg HS PO Last administered on 06/28/17 20:52; Admin Dose 150 MG; Start 06/13/17 at 21:00 Insulin Glargine (Lantus) 10 unit DAILY@20 SC ; Start 06/14/17 at 20:00; Status Future Hold Diagnostic Test (Pha) (Accu-Chek) 1 ea 02 XX Last administered on 06/24/17 02 :03; Admin Dose 1 EA; Start 06/15/17 at 02:00 Miscellaneous Information 1 ea NOTE XX ; Start 06/14/17 at 06:00 Glucose (Glutose) 15 gm Q15M PRN PO DECREASED GLUCOSE; Start 06/14/17 at 06:00 Glucose (Glutose) 22.5 gm Q15M PRN PO DECREASED GLUCOSE; Start 06/14/17 at 06: 00 Dextrose (D50w Syringe) 25 ml Q15M PRN IV DECREASED GLUCOSE Last administered on 06/17/17 04:41; Admin Dose 25 ML; Start 06/14/17 at 06:00 Dextrose (D50w Syringe) 50 ml Q15M PRN IV DECREASED GLUCOSE; Start 06/14/17 at 06:00 Glucagon (Glucagen) 1 mg Q15M PRN IM DECREASED GLUCOSE; Start 06/14/17 at 06: 00 Glucose 15 gm 15 gm Q15M PRN BUCCAL DECREASED GLUCOSE; Start 06/14/17 at 06:00 Diltiazem HCl (Cardizem-D5W 125 Mg/125 ml Drip) 125 ml @ 0 mls/hr TITRATE IV Last administered on 06/19/17 16:59; Admin Dose 5 MLS/HR; Start 06/14/17 at 15:00 Enoxaparin Sodium (Lovenox) 60 mg DAILY SC Last administered on 06/29/17 09: 09; Admin Dose 60 MG; Start 06/17/17 at 09:00 IV Flush (NS 10 ml) 10 ml PRN PRN IV IV PROTOCOL; Start 06/16/17 at 14:00 Haloperidol (Haldol) 1 mg Q12 PRN IV agitation Last administered on 06/16/17 21:56; Admin Dose 1 MG; Start 06/16/17 at 20:30 Metoprolol Tartrate (Lopressor) 50 mg BID PO Last administered on 06/23/17 20 :02; Admin Dose 50 MG; Start 06/19/17 at 21:00; Status Future hold Hydralazine HCl (Apresoline) 50 mg Q8 PO Last administered on 06/27/17 13:59 ; Admin Dose 50 MG; Start 06/21/17 at 14:00 Diltiazem HCl (Cardizem) 60 mg Q8 GTB Last administered on 06/29/17 05:33; Admin Dose 60 MG; Start 06/23/17 at 14:00; Status Future hold Ampicillin (Ampicillin) 500 mg BID PO Last administered on 06/29/17 09:08; Admin Dose 500 MG; Start 06/24/17 at 18:00 Carvedilol 12.5 mg 12.5 mg BID PO Last administered on 06/29/17 09:08; Admin Dose 12.5 MG; Start 11/24/17 at 21:00 Sodium Chloride (NS) 1,000 ml @ 70 mls/hr [id number] IV Last administered on t 05:30; Admin Dose 70 MLS/HR; Start 06/28/17 at 15:30 LILIAN ABEEB MD Jun 29, 2017 11:14
[2017-06-29] MEDS ORDERED: DEXTROSE 5%-0.9% NACL 1,000 ML IV SCH (13:30)
--- NOTE | 2017-06-29 13:54 | PN ---
Date/Time of Note Date/Time of Note DATE: 06/29/17 TIME: 13:37 Assessment/Plan VTE Prophylaxis VTE Prophylaxis Intervention: LMWH Lines/Catheters IV [facility] ([facility] PICC Line Central line still needed: Yes Urinary Cath still in place: Yes Reason Cath still needed: other (indicate) (altered mental status. ) Assessment/Plan Problems: (1) Anemia Status: Chronic Comment: Gradually worsening since admission. Will start anemia work up . Resume PPI. Give one dose of Epogen. Veronica cbc in am and consider transfusion if H/H is worse. (2) Respiratory failure with hypercapnia Status: Acute Comment: Continue bipap. Agree with plans for thoracentesis per pulmonary. (3) Hypotension Status: Resolved Comment: Hold Lasix. Continue and increase IVF since patient's BUN/creatinine is still elevated (4) Chronic renal insufficiency Status: Chronic Comment: follow BUN/cr with hydration. (5) CHF (congestive heart failure) Status: Chronic Comment: Hold Lasix for now due to hypotension and azotemia. (6) Diabetes mellitus Status: Chronic Comment: change IVF to D5 since patient is NPO. Subjective 24 Hr Interval Summary Free Text/Dictation Daughters reports patient can communicate with her and has no current complaints , lethargy slightly improved. Exam/Review of Systems Vital Signs Vitals Vital Signs Date Time Temp Pulse Resp B/P Pulse Ox O2 Delivery O2 Flow Rate FiO2 06/29/17 12:00 85 06/29/17 11:00 8 129/56 100 BIPAP 06/29/17 08:00 98.0 06/29/17 05:30 30 06/28/17 02:54 3.0 Intake and Output 06/28/17 06/28/17 06/29/17 15:00 23:00 07:00 Intake Total 140 ml 350 ml 560 ml Output Total 40 ml 110 ml 70 ml Balance 100 ml 240 ml 490 ml Exam Patient on bipap, opens eyes to inquiries. Head: atraumatic, normocephalic Eyes: nl conjunctiva, nl sclera Respiratory: clear to auscultation Cardiovascular: regular rate and rhythm Gastrointestinal: non-tender, soft Musculoskeletal: nl extremities to inspection Results Result Diagram: 06/29/17 0400 06/29/17 0400 Results 24 hrs Laboratory Tests Test 06/28/17 13:56 06/28/17 17:00 06/28/17 17:55 06/28/17 20:51 Bedside Glucose 92 90 99 Blood Gas Specimen Source Blood arterial Arterial Blood Date Drawn 06/28/2017 5:20:30 PM Arterial Blood pH (Temp corrected) 7.255 *L Arterial Blood pCO2 (Temp correct) 59.9 H Arterial Blood pO2 (Temp corrected) 69.8 L Arterial Blood HCO3 26.0 Arterial Blood Base Excess -1.7 Arterial Blood Oxygen Saturation 93.1 L [place] Test ACCEPTAB Arterial Blood Gas Puncture Site Right Radial Arterial Blood Carboxyhemoglobin 0.2 Arterial Blood Methemoglobin 0.3 Blood Gas A-a O2 Differential 73.7 H Oxyhemoglobin Percent 92.6 L Total Hemoglobin 9.5 L Blood Gas Temperature 37.0 Blood Gas Respiration Rate 22.0 Blood Gas Actual Respiration Rate 22 Blood Gas Modality MASK - BIPAP FiO2 30.0 Blood Gas Tidal Volume 331.0 Blood Gas IPAP/EPAP Ratio 22/8 Blood Gas Critical Value Read Back LISA TAMAYO Blood Gas Notified Whom MICHELLE SHORT Blood Gas Notified Time 06/28/2017 5:33:01 PM Test 06/29/17 04:00 06/29/17 07:00 06/29/17 08:47 06/29/17 12:14 White Blood Count 9.8 Red Blood Count 2.63 L Hemoglobin 7.9 L Hematocrit 26.2 L Mean Corpuscular Volume 99.6 Mean Corpuscular Hemoglobin 30.0 Mean Corpuscular Hemoglobin Concent 30.2 L Red Cell Distribution Width 14.5 Platelet Count 194 Mean Platelet Volume 10.3 Neutrophils % 86.6 H Lymphocytes % 7.4 L Monocytes % 5.3 Eosinophils % 0.1 Basophils % 0.1 Nucleated Red Blood Cells % 0.0 Neutrophils # 8.5 H Lymphocytes # 0.7 L Monocytes # 0.5 Eosinophils # 0.0 Basophils # 0.0 Nucleated Red Blood Cells # 0.0 Sodium Level 143 Potassium Level 5.0 Chloride Level 107 Carbon Dioxide Level 27 Anion Gap 14 Blood Urea Nitrogen 55 H Creatinine 2.76 H Glucose Level 84 # Calcium Level 8.5 Blood Gas Specimen Source Blood arterial Arterial Blood Date Drawn 06/29/2017 7:40:46 AM Arterial Blood pH (Temp corrected) 7.278 *L Arterial Blood pCO2 (Temp correct) 55.6 H Arterial Blood pO2 (Temp corrected) 107.6 H Arterial Blood HCO3 25.4 Arterial Blood Base Excess -1.7 Arterial Blood Oxygen Saturation 97.5 [place] Test ACCEPTAB Arterial Blood Gas Puncture Site Right Radial Arterial Blood Carboxyhemoglobin 0.2 Arterial Blood Methemoglobin 0.2 Blood Gas A-a O2 Differential 41.0 H Oxyhemoglobin Percent 97.1 Total Hemoglobin 9.6 L Blood Gas Temperature 37.0 Blood Gas Respiration Rate 22.0 Blood Gas Actual Respiration Rate 22 Blood Gas Modality MASK - BIPAP FiO2 30.0 Blood Gas Low PEEP Setting 8.0 Blood Gas IPAP/EPAP Ratio 22/8 Blood Gas Critical Value Read Back Andyr MCCONNELL RN Blood Gas Notified Whom Yareli LUO Blood Gas Notified Time 06/29/2017 7:56:16 AM Bedside Glucose 78 71 Medications Medications Current Medications Ondansetron HCl (Zofran Inj) 4 mg Q6H PRN IV NAUSEA AND/OR VOMITING Last administered on 06/27/17 21:40; Admin Dose 4 MG; Start 06/13/17 at 15:30 Acetaminophen (Tylenol Tab) 650 mg Q6H PRN PO PAIN LEVEL 1-3 OR FEVER Last administered on 06/24/17 16:33; Admin Dose 650 MG; Start 06/13/17 at 15:30 Docusate Sodium (Colace) 100 mg Q12H PRN PO CONSTIPATION; Start 06/13/17 at 15 :30 Magnesium Hydroxide (Milk Of Mag) 30 ml DAILY PRN PO CONSTIPATION; Start 06/13 at 15:30 Hydralazine HCl (Apresoline) 10 mg Q6H PRN IV ELEVATED BLOOD PRESSURE Last administered on 06/25/17 08:43; Admin Dose 10 MG; Start 06/13/17 at 15:30 Nitroglycerin (Nitroglycerin (Sl Tab) 0.4 Mg) 1 tab Q5M PRN SL ANGINA; Start 06/13/17 at 15:30 Aspirin (Aspirin) 325 mg DAILY PO Last administered on 06/29/17 09:00; Admin Dose 325 MG; Start 06/14/17 at 09:00 Atorvastatin Calcium (Lipitor) 10 mg HS PO Last administered on 06/16/17 21: 47; Admin Dose 10 MG; Start 06/13/17 at 21:00; Status Future Hold Levothyroxine Sodium (Synthroid) 100 mcg DAILY PO Last administered on 09:07; Admin Dose 100 MCG; Start 06/14/17 at 09:00 Montelukast Sodium (Singulair) 10 mg QHS PO Last administered on 06/28/17 20: 51; Admin Dose 10 MG; Start 06/13/17 at 21:00 Ranitidine HCl (Zantac) 150 mg HS PO Last administered on 06/28/17 20:52; Admin Dose 150 MG; Start 06/13/17 at 21:00 Insulin Glargine (Lantus) 10 unit DAILY@20 SC ; Start 06/14/17 at 20:00; Status Future Hold Diagnostic Test (Pha) (Accu-Chek) 1 ea 02 XX Last administered on 06/24/17 02 :03; Admin Dose 1 EA; Start 06/15/17 at 02:00 Miscellaneous Information 1 ea NOTE XX ; Start 06/14/17 at 06:00 Glucose (Glutose) 15 gm Q15M PRN PO DECREASED GLUCOSE; Start 06/14/17 at 06:00 Glucose (Glutose) 22.5 gm Q15M PRN PO DECREASED GLUCOSE; Start 06/14/17 at 06: 00 Dextrose (D50w Syringe) 25 ml Q15M PRN IV DECREASED GLUCOSE Last administered on 06/17/17 04:41; Admin Dose 25 ML; Start 06/14/17 at 06:00 Dextrose (D50w Syringe) 50 ml Q15M PRN IV DECREASED GLUCOSE; Start 06/14/17 at 06:00 Glucagon (Glucagen) 1 mg Q15M PRN IM DECREASED GLUCOSE; Start 06/14/17 at 06: 00 Glucose 15 gm 15 gm Q15M PRN BUCCAL DECREASED GLUCOSE; Start 06/14/17 at 06:00 Diltiazem HCl (Cardizem-D5W 125 Mg/125 ml Drip) 125 ml @ 0 mls/hr TITRATE IV Last administered on 06/19/17 16:59; Admin Dose 5 MLS/HR; Start 06/14/17 at 15:00 Enoxaparin Sodium (Lovenox) 60 mg DAILY SC Last administered on 06/29/17 09: 09; Admin Dose 60 MG; Start 06/17/17 at 09:00 IV Flush (NS 10 ml) 10 ml PRN PRN IV IV PROTOCOL; Start 06/16/17 at 14:00 Haloperidol (Haldol) 1 mg Q12 PRN IV agitation Last administered on 06/16/17 21:56; Admin Dose 1 MG; Start 06/16/17 at 20:30 Metoprolol Tartrate (Lopressor) 50 mg BID PO Last administered on 06/23/17 20 :02; Admin Dose 50 MG; Start 06/19/17 at 21:00; Status Future hold Hydralazine HCl (Apresoline) 50 mg Q8 PO Last administered on 06/27/17 13:59 ; Admin Dose 50 MG; Start 06/21/17 at 14:00 Diltiazem HCl (Cardizem) 60 mg Q8 GTB Last administered on 06/29/17 05:33; Admin Dose 60 MG; Start 06/23/17 at 14:00; Status Future hold Ampicillin (Ampicillin) 500 mg BID PO Last administered on 06/29/17 09:08; Admin Dose 500 MG; Start 06/24/17 at 18:00 Carvedilol 12.5 mg 12.5 mg BID PO Last administered on 06/29/17 09:08; Admin Dose 12.5 MG; Start 06/27/17 at 21:00 Sodium Chloride 1,000 ml @ 100 mls/hr Q10H IV Last administered on 06/29/17 12:11; Admin Dose 100 MLS/HR; Start 06/28/17 at 15:30 Dextrose/Sodium Chloride 1,000 ml @ 150 mls/hr Q6H40M IV ; Start 06/29/17 at 13:30; Stop 06/29/17 at 20:09 Dextrose/Sodium Chloride (D5-NS) 1,000 ml @ 100 mls/hr Q10H IV ; Start at 21:00 MAYNOR ASHLEY MD Jun 29, 2017 13:48
[2017-06-29] MEDS ORDERED: EPOETIN 10000 UNITS/ML (NON ESRD/NON ONCOLOGY) SC ONE (14:00)
[2017-06-29] MEDS: PANTOPRAZOLE 40 MG INJ IV SCH (17:53)
[2017-06-29] MEDS: MONTELUKAST 10 MG TAB PO SCH (20:28)
[2017-06-29] MEDS: DEXTROSE 5%-0.9% NACL 1,000 ML IV SCH (20:29)
[2017-06-30] VITALS (34 sets, daily range): BP systolic 85–143; BP diastolic 46–74; PULSE 59–108; RESP 14–22
[2017-06-30] MEDS: ACCU-CHEK XX SCH (02:00)
[2017-06-30] MEDS: PANTOPRAZOLE 40 MG INJ IV SCH ×2 (05:21→17:15)
[2017-06-30] MEDS: DEXTROSE 5%-0.9% NACL 1,000 ML IV SCH (05:21)
[2017-06-30] MEDS: DILTIAZEM 60 MG TAB GTB SCH ×3 (05:22→22:35)
[2017-06-30 05:37] LABS: BASOPHILS % 0.1 % (0.0-2.0); EOSINOPHILS # 0.1 10^3/ul (0.0-0.5); EOSINOPHILS % 0.5 % (0.0-7.0); LYMPHOCYTES # 0.7 10^3/ul (0.8-2.9); LYMPHOCYTES % 7.2 % (15.0-51.0); MEAN CORPUSCULAR HEMOGLOBIN 30.1 pg (29.0-33.0); MEAN CORPUSCULAR HGB CONC 30.8 g/dl (32.0-37.0); MEAN CORPUSCULAR VOLUME 97.7 fl (82.0-101.0); MONOCYTE # 0.7 10^3/ul (0.3-0.9); MONOCYTES % 7.3 % (0.0-11.0); NEUTROPHIL # 8.4 10^3/ul (1.6-7.5); NEUTROPHILS % 84.4 % (39.0-77.0); PLATELET COUNT 204 10^3/UL (140-415); RED BLOOD COUNT 2.66 10^6/ul (4.20-5.40); RED CELL DISTRIBUTION WIDTH 14.5 % (11.5-14.5); WHITE BLOOD COUNT 9.9 10^3/ul (4.8-10.8)
[2017-06-30 06:42] LABS: THYROID STIMULATING HORMONE 3.21 MIU/L (0.465-4.680)
[2017-06-30 06:48] LABS: INR 1.4; PROTIME 17.2 Sec (12.2-14.2); PT RATIO 1.3
[2017-06-30 06:49] LABS: PARTIAL THROMBOPLASTIN TIME 35.9 Sec (25.0-35.0)
[2017-06-30 07:02] LABS: CALCIUM 8.6 mg/dl (8.4-10.2); CREATININE 2.57 mg/dl (0.44-1.00); MAGNESIUM 2.3 mg/dl (1.7-2.5); PHOSPHORUS 4.2 mg/dl (2.5-4.9); POTASSIUM 4.7 mmol/L (3.5-5.1)
[2017-06-30] MEDS: INSULIN ASPART [NOVOLOG] 3 ML PEN SC SCH ×4 (07:05→21:00)
--- NOTE | 2017-06-30 08:05 | RADRPT ---
PROCEDURE: XR Chest. CLINICAL INDICATION: CHF TECHNIQUE: An AP view of the chest was obtained. COMPARISON: Chest x-ray dated 06/29/2017 FINDINGS: The tip of the enteric tube extends below the left diaphragm. There is a left upper extremity PICC line with tip near the cavoatrial junction. There is prominence of the interstitial and central pulmonary vascular markings with small bilatera l pleural effusions. No focal airspace opacification or pneumothorax is seen. The cardiomediastin al silhouette is mildly enlarged . Calcifications are seen within the aortic arch. The osseous str uctures demonstrate senescent changes. IMPRESSION: 1. Findings suggestive of pulmonary vascular congestion with small bilateral pleural effusions. No significant interval change. 2. Mild cardiomegaly and aortic atherosclerosis. 3. Tubes and lines, as described above. RPTAT: HH .Ramandeep Cagle MD, MD Date Time Electronically viewed and signed by .Ramandeep Cagle MD, on 06/30/2017 08:05 .Mikhail/
[2017-06-30 08:14] LABS: AADO2 Arterial 50.5 mmHg (7.0-24.0); Allen Test ACCEPTAB; Arterial Base Excess -2.6 mmol/L (-3.0-3); Arterial COHb 0.3 % (0.0-3.0); Arterial Fraction of Oxyhgb 97.4 % (93.0-99.0); Arterial HCO3 23.1 mmol/L (22.0-26.0); Arterial MetHb 0.2 % (0.0-1.5); Arterial Total Hemglobin 9.2 g/dl (12.0-18.0); Blood Gas IEPAP 22/8; MODE MASK - BIPAP
[2017-06-30 08:57] LABS: IRON 14 ug/dl (35-150)
[2017-06-30] MEDS: ENOXAPARIN 60 MG/0.6 ML SYG SC SCH (09:00)
[2017-06-30 09:06] LABS: TOTAL IRON BINDING CAPACITY 241 ug/dl (241-421)
--- NOTE | 2017-06-30 09:45 | CONS ---
Date/Time of Note Date/Time of Note DATE: 06/30/17 TIME: 09:44 Consult Date/Type/Reason Admit Date/Time Jun 14, 2017 at 09:27 Type of Consultation: Pulmonary Ordering Provider: SARAH VINCENT Subjective Comfortable this morning. Awake alert and oriented. Off BiPAP. Objective Vital Signs Date Time Temp Pulse Resp B/P Pulse Ox O2 Delivery O2 Flow Rate FiO2 06/30/17 08:00 76 06/30/17 08:00 98.5 22 127/51 100 BIPAP 06/30/17 05:57 30 06/28/17 02:54 3.0 Intake and Output 06/29/17 06/29/17 06/30/17 15:00 23:00 07:00 Intake Total 720 ml 550 ml 600 ml Output Total 90 ml 90 ml 130 ml Balance 630 ml 460 ml 470 ml Exam GENERAL: Elderly lady appears comfortable at rest no acute distress VITAL SIGNS: per chart NECK: Supple. No JVD or lymphadenopathy. CARDIAC EXAM: S1, S2. No added sounds or murmurs. CHEST: Diminished air entry right base ABDOMEN: Soft, nontender. No guarding or rebound. Diminished bowel sounds EXTREMITIES: No cyanosis, clubbing or edema. NEUROLOGIC: Generalized weakness. Results/Medications Result Diagram: 06/30/17 0450 06/30/17 0450 Results 24 hrs Laboratory Tests Test 06/29/17 12:14 06/29/17 17:40 06/29/17 20:28 06/30/17 04:50 Bedside Glucose 71 97 85 White Blood Count 9.9 Red Blood Count 2.66 L Hemoglobin 8.0 L Hematocrit 26.0 L Mean Corpuscular Volume 97.7 Mean Corpuscular Hemoglobin 30.1 Mean Corpuscular Hemoglobin Concent 30.8 L Red Cell Distribution Width 14.5 Platelet Count 204 Mean Platelet Volume 11.0 H Neutrophils % 84.4 H Lymphocytes % 7.2 L Monocytes % 7.3 Eosinophils % 0.5 Basophils % 0.1 Nucleated Red Blood Cells % 0.0 Neutrophils # 8.4 H Lymphocytes # 0.7 L Monocytes # 0.7 Eosinophils # 0.1 Basophils # 0.0 Nucleated Red Blood Cells # 0.0 Prothrombin Time 17.2 H Prothrombin Time Ratio 1.3 INR International Normalized Ratio 1.40 Activated Partial Thromboplast Time 35.9 H Sodium Level 145 H Potassium Level 4.7 Chloride Level 112 H Carbon Dioxide Level 26 Anion Gap 12 Blood Urea Nitrogen 61 H Creatinine 2.57 H Glucose Level 98 Calcium Level 8.6 Phosphorus Level 4.2 Magnesium Level 2.3 Vitamin B12 Level 937 H Folate 18.0 Thyroid Stimulating Hormone (TSH) 3.210 Test 06/30/17 07:00 06/30/17 08:06 06/30/17 08:09 Blood Gas Specimen Source Blood arterial Arterial Blood Date Drawn 06/30/2017 7:50:52 AM Arterial Blood pH (Temp corrected) 7.341 L Arterial Blood pCO2 (Temp correct) 43.7 Arterial Blood pO2 (Temp corrected) 112.1 H Arterial Blood HCO3 23.1 Arterial Blood Base Excess -2.6 Arterial Blood Oxygen Saturation 97.9 Carlton Test ACCEPTAB Arterial Blood Gas Puncture Site Right Radial Arterial Blood Carboxyhemoglobin 0.3 Arterial Blood Methemoglobin 0.2 Blood Gas A-a O2 Differential 50.5 H Oxyhemoglobin Percent 97.4 Total Hemoglobin 9.2 L Blood Gas Temperature 37.0 Blood Gas Respiration Rate 22.0 Blood Gas Actual Respiration Rate 22 Blood Gas Modality MASK - BIPAP FiO2 30.0 Blood Gas IPAP/EPAP Ratio 25/03 Blood Gas Notified Whom JLD Blood Gas Notified Time 06/30/2017 8:14:33 AM Iron Level 14 L Total Iron Binding Capacity 241 Percent Iron Saturation 6 L Bedside Glucose 102 Medications Current Medications Ondansetron HCl (Zofran Inj) 4 mg Q6H PRN IV NAUSEA AND/OR VOMITING Last administered on 06/27/17 21:40; Admin Dose 4 MG; Start 06/13/17 at 15:30 Acetaminophen (Tylenol Tab) 650 mg Q6H PRN PO PAIN LEVEL 1-3 OR FEVER Last administered on 06/24/17 16:33; Admin Dose 650 MG; Start 06/13/17 at 15:30 Docusate Sodium (Colace) 100 mg Q12H PRN PO CONSTIPATION; Start 06/13/17 at 15 :30 Magnesium Hydroxide (Milk Of Mag) 30 ml DAILY PRN PO CONSTIPATION; Start 06/13 at 15:30 Hydralazine HCl (Apresoline) 10 mg Q6H PRN IV ELEVATED BLOOD PRESSURE Last administered on 06/25/17 08:43; Admin Dose 10 MG; Start 06/13/17 at 15:30 Nitroglycerin (Nitroglycerin (Sl Tab) 0.4 Mg) 1 tab Q5M PRN SL ANGINA; Start 06/13/17 at 15:30 Aspirin (Aspirin) 325 mg DAILY PO Last administered on 06/29/17 09:00; Admin Dose 325 MG; Start 06/14/17 at 09:00 Atorvastatin Calcium (Lipitor) 10 mg HS PO Last administered on 06/16/17 21: 47; Admin Dose 10 MG; Start 06/13/17 at 21:00; Status Future Hold Levothyroxine Sodium (Synthroid) 100 mcg DAILY PO Last administered on 09:07; Admin Dose 100 MCG; Start 06/14/17 at 09:00 Montelukast Sodium (Singulair) 10 mg QHS PO Last administered on 06/29/17 20: 28; Admin Dose 10 MG; Start 06/13/17 at 21:00 Insulin Glargine (Lantus) 10 unit DAILY@20 SC ; Start 06/14/17 at 20:00; Status Future Hold Diagnostic Test (Pha) (Accu-Chek) 1 ea 02 XX Last administered on 06/24/17 02 :03; Admin Dose 1 EA; Start 06/15/17 at 02:00 Miscellaneous Information 1 ea NOTE XX ; Start 06/14/17 at 06:00 Glucose (Glutose) 15 gm Q15M PRN PO DECREASED GLUCOSE; Start 06/14/17 at 06:00 Glucose (Glutose) 22.5 gm Q15M PRN PO DECREASED GLUCOSE; Start 06/14/17 at 06: 00 Dextrose (D50w Syringe) 25 ml Q15M PRN IV DECREASED GLUCOSE Last administered on 06/17/17 04:41; Admin Dose 25 ML; Start 06/14/17 at 06:00 Dextrose (D50w Syringe) 50 ml Q15M PRN IV DECREASED GLUCOSE; Start 06/14/17 at 06:00 Glucagon (Glucagen) 1 mg Q15M PRN IM DECREASED GLUCOSE; Start 06/14/17 at 06: 00 Glucose 15 gm 15 gm Q15M PRN BUCCAL DECREASED GLUCOSE; Start 06/14/17 at 06:00 Diltiazem HCl (Cardizem-D5W 125 Mg/125 ml Drip) 125 ml @ 0 mls/hr TITRATE IV Last administered on 06/19/17 16:59; Admin Dose 5 MLS/HR; Start 06/14/17 at 15:00 Enoxaparin Sodium (Lovenox) 60 mg DAILY SC Last administered on 06/29/17 09: 09; Admin Dose 60 MG; Start 06/17/17 at 09:00 IV Flush (NS 10 ml) 10 ml PRN PRN IV IV PROTOCOL; Start 06/16/17 at 14:00 Haloperidol (Haldol) 1 mg Q12 PRN IV agitation Last administered on 06/16/17 21:56; Admin Dose 1 MG; Start 06/16/17 at 20:30 Metoprolol Tartrate (Lopressor) 50 mg BID PO Last administered on 06/23/17 20 :02; Admin Dose 50 MG; Start 06/19/17 at 21:00; Status Future hold Hydralazine HCl (Apresoline) 50 mg Q8 PO Last administered on 06/30/17 05:21 ; Admin Dose 50 MG; Start 06/21/17 at 14:00 Diltiazem HCl (Cardizem) 60 mg Q8 GTB Last administered on 06/30/17 05:22; Admin Dose 60 MG; Start 06/23/17 at 14:00; Status Future hold Ampicillin (Ampicillin) 500 mg BID PO Last administered on 06/29/17 20:28; Admin Dose 500 MG; Start 06/24/17 at 18:00 Carvedilol 12.5 mg 12.5 mg BID PO Last administered on 06/29/17 20:29; Admin Dose 12.5 MG; Start 06/27/17 at 21:00 Dextrose/Sodium Chloride (D5-NS) 1,000 ml @ 100 mls/hr Q10H IV Last administered on 06/30/17 05:21; Admin Dose 100 MLS/HR; Start 06/29/17 at 21: 00 Pantoprazole (Protonix Iv) 40 mg BID@06,18 IV Last administered on 06/30/17 05:21; Admin Dose 40 MG; Start 06/29/17 at 18:00 Assessment/Plan Chief Complaint/Hosp Course IMPRESSION: 1. Acute hypercapnic respiratory failure, placed back on BiPAP. Repeat arterial blood gas in several hours. Repeat chest x-ray shows increasing right pleural effusion previous thoracentesis been performed 2. History of hypertension. 3. Atrial fibrillation with rapid ventricular rate. Still requiring rate control. 4. Diabetes mellitus. 5. Status post shock. 6. Acute renal failure. Likely ATN injury. Renal function appears to be stabilizing. Plan 1. Continue BiPAP. Thoracentesis right lung. Pleural fluid studies again. 2. Rate control per cardiology. 3. No sedation. 4. Deep venous thrombosis and gastrointestinal prophylaxis. 5. Aspiration precautions. Advance diet now off BiPAP. Problems: YAZMIN VARGAS MD, [facility] Jun 30, 2017 09:45
[2017-06-30] MEDS ORDERED: LIDOCAINE 1% (MPF) 5 ML VIAL ONE (10:05)
--- NOTE | 2017-06-30 10:31 | PN ---
DATE: 06/30/2017 SUBJECTIVE: The patient is feeling better. OBJECTIVE: VITAL SIGNS: Temperature 98.5 axillary, pulse 70, respirations 22, blood pressure 127/51, oxygen sa turation 100%. GENERAL: Well-developed, well-nourished female in no acute distress, lying in bed. CHEST: Clear to auscultation bilaterally except for decreased breath sounds in the bases. HEART: Irregularly irregular. ABDOMEN: Soft, nontender, nondistended. EXTREMITIES: No cyanosis, clubbing. There is trace bilateral lower extremity edema. NEUROLOGIC: Nonfocal. LABORATORY DATA: Sodium 145, potassium 4.7, chloride 112, bicarbonate 26, BUN of 61, creatinine 2.5 7, magnesium 2.3, B12 is 937. Folic acid 18. TSH 3.21. Hemoglobin of 8.0, hematocrit of 26.0. Ar terial blood gas shows a pH of 7.34, pCO2 of 43.7, pO2 of 112, oxygen saturation 97.9, that was on 3 0% BiPAP mask. ASSESSMENT AND PLAN 1. Acute respiratory failure with hypercapnia. The patient is improved this morning and currently off of BiPAP. We will continue to monitor and use BiPAP on an as needed basis. Patient is to under go thoracentesis this morning to small amount of fluid. 2. Atrial fibrillation, remains stable. Continue with current medications. 3. Anemia, stable. We will continue to give Epogen and workup for loss at this point, apparently a t this stage the patient with no acute loss that is evident. 4. Acute on chronic renal insufficiency. Stable at this point. We will continue to monitor as daniel henderson's creatinine worsened over the last several days with her hypertension. Continue to monitor. 5. Urinary tract infection, stable, we recheck urine for further evaluation. 6. Diabetes, stable. Continue with medications. The patient will be able to receive feeding today . We will continue with sliding scale. Dictated By: MORGAN SNOW MD SR/NTS Conf#: [id number] DID#: [id number] CC: SAARH VINCENT MD; WEN GOFF MD;*EndCC*
[2017-06-30] MEDS: AMPICILLIN 500 MG CAP PO SCH (11:35)
[2017-06-30] MEDS: ASPIRIN 325 MG TAB PO SCH (11:36)
--- NOTE | 2017-06-30 11:37 | RADRPT ---
PROCEDURE: XR Chest. CLINICAL INDICATION: Post thoracentesis TECHNIQUE: An AP view of the chest was obtained. COMPARISON: Chest x-ray performed earlier on the same date FINDINGS: The tip of the enteric tube extends below the left diaphragm. There is prominence of the interstitial and central pulmonary vascular markings with small bilatera l pleural effusions. No focal airspace opacification or pneumothorax is seen. The cardiomediastin al silhouette is mildly enlarged . Calcifications are seen within the aortic arch. The osseous str uctures demonstrate senescent changes. IMPRESSION: 1. Findings suggestive of pulmonary vascular congestion with small bilateral pleural effusions. Th ere has been interval improvement in degree of right pleural effusion when compared to the prior exa mination. No pneumothorax is seen. 2. Mild cardiomegaly and aortic atherosclerosis. 3. The tip of the enteric tube extends below the left diaphragm. RPTAT: HH .Ramandeep Cagle MD, MD Date Time Electronically viewed and signed by .Ramandeep Cagle MD, on 06/30/2017 11:37 .G/
[2017-06-30] MEDS: LEVOTHYROXINE 100 MCG TAB PO SCH (11:38)
--- NOTE | 2017-06-30 11:46 | RADRPT ---
PROCEDURE: US guided right thoracentesis. CLINICAL INDICATION: Shortness of breath. Right pleural effusion. TECHNIQUE: Prior to the procedure, informed consent was obtained. The risks, benefits, and alternatives were e xplained to the patient or the patient's family, including but not limited to bleeding, infection, p ain, visceral or vascular damage, shock, pneumothorax, chest tube placement, air embolism, and . The patient or the patient's family understood the risks and the alternatives and wished to proce ed with the study. Informed written consent was obtained. A procedural pause was performed. The patient's name, date of , and procedure to be performed were verified. Ultrasound of the right hemithorax was performed in the axial and sagittal planes. A right pleural e ffusion is noted. Utilizing ultrasound guidance, optimal location for entry to the pleural cavity wa s ascertained. The overlying skin was prepped and draped in the usual sterile fashion. Approximate ly 10 ml of 1% Xylocaine was injected locally for pain control. Using ultrasound guidance, a 5-Fren ch Yueh catheter was introduced into the right pleural space without difficulty. Fluid was aspirated . COMPARISON: None. FINDINGS: Initial ultrasound demonstrates fluid in the right pleural space. Approximately 0.600 liters of ser ous fluid was aspirated and sent to the laboratory. IMPRESSION: 1. Satisfactory ultrasound-guided right thoracentesis. RPTAT: QQ .Javed Velasquez MD, Date Time Electronically viewed and signed by .Javed Velasquez MD, on 06/30/2017 11:46 .R/
--- NOTE | 2017-06-30 13:25 | CONS ---
Date/Time of Note Date/Time of Note DATE: 06/30/17 TIME: 13:20 Assessment/Plan Assessment/Plan Chief Complaint/Hosp Course IMP: 1.Hypotension-improved off of pressors/NL EF by echo this admit-now HTN well controlled on current regimen 2. AF with RVR-yesterday apparently had pause 3 seconds and all estrella agents were held 3. Renal failure-ongoing 4. Hypercarbic resp failure s/p extubation-improved off BIPAP in ICU 5. Hypothyroid 6. PLeural effusion-s/p thoracentesis Recc: -ICU monitoring -serial ecg's -Follow volume status closely and would give gentle lasix diuresis -Continue lovenox QD/asa -Follow HR/BP/volume status closely -Continue current BB/CCB and follow HR/rhythm closely -start gentle lasix diuresis Problems: Consultation Date/Type/Reason Admit Date/Time Jun 14, 2017 at 09:27 Initial Consult Date 06/15/17 Type of Consultation: cardiology Reason for Consultation AF Referring Provider: SARAH VINCENT Exam/Review of Systems Vital Signs Vitals Vital Signs Date Time Temp Pulse Resp B/P Pulse Ox O2 Delivery O2 Flow Rate FiO2 06/30/17 12:00 98.0 82 21 112/63 100 Nasal Cannula 5.0 06/30/17 05:57 30 Intake and Output 06/29/17 06/29/17 06/30/17 15:00 23:00 07:00 Intake Total 720 ml 550 ml 600 ml Output Total 90 ml 90 ml 130 ml Balance 630 ml 460 ml 470 ml Exam Review of Systems: CONSTITUTIONAL: No fevers, chills. PULMONARY: No sob CARDIOVASCULAR: No chest pain/palpitations GASTROINTESTINAL: No nausea/vomiting. GENITOURINARY: No hematuria/dysuria. MUSCULOSKELETAL: No myagias/arthalgias. PSYCHIATRIC: The patient denies depression. NEUROLOGIC: No weakness Constitutional: other (sleeping) Psych: no complaints Head: normocephalic ENMT: mucosa pink and moist Neck: jvd (9 cm water), supple Respiratory: diminished breath sounds (at bases/B) Cardiovascular: irregular rhythm Gastrointestinal: non-tender, soft Musculoskeletal: muscle tone (normal) Extremities: edema (trace/B) Neurological: lethargic Results Result Diagram: 06/30/17 0450 06/30/17 0450 Results 24 hrs Laboratory Tests Test 06/29/17 17:40 06/29/17 20:28 06/30/17 04:50 06/30/17 07:00 Bedside Glucose 97 85 White Blood Count 9.9 Red Blood Count 2.66 L Hemoglobin 8.0 L Hematocrit 26.0 L Mean Corpuscular Volume 97.7 Mean Corpuscular Hemoglobin 30.1 Mean Corpuscular Hemoglobin Concent 30.8 L Red Cell Distribution Width 14.5 Platelet Count 204 Mean Platelet Volume 11.0 H Neutrophils % 84.4 H Lymphocytes % 7.2 L Monocytes % 7.3 Eosinophils % 0.5 Basophils % 0.1 Nucleated Red Blood Cells % 0.0 Neutrophils # 8.4 H Lymphocytes # 0.7 L Monocytes # 0.7 Eosinophils # 0.1 Basophils # 0.0 Nucleated Red Blood Cells # 0.0 Prothrombin Time 17.2 H Prothrombin Time Ratio 1.3 INR International Normalized Ratio 1.40 Activated Partial Thromboplast Time 35.9 H Sodium Level 145 H Potassium Level 4.7 Chloride Level 112 H Carbon Dioxide Level 26 Anion Gap 12 Blood Urea Nitrogen 61 H Creatinine 2.57 H Glucose Level 98 Calcium Level 8.6 Phosphorus Level 4.2 Magnesium Level 2.3 Vitamin B12 Level 937 H Folate 18.0 Thyroid Stimulating Hormone (TSH) 3.210 Blood Gas Specimen Source Blood arterial Arterial Blood Date Drawn 06/30/2017 7:50:52 AM Arterial Blood pH (Temp corrected) 7.341 L Arterial Blood pCO2 (Temp correct) 43.7 Arterial Blood pO2 (Temp corrected) 112.1 H Arterial Blood HCO3 23.1 Arterial Blood Base Excess -2.6 Arterial Blood Oxygen Saturation 97.9 Carlton Test ACCEPTAB Arterial Blood Gas Puncture Site Right Radial Arterial Blood Carboxyhemoglobin 0.3 Arterial Blood Methemoglobin 0.2 Blood Gas A-a O2 Differential 50.5 H Oxyhemoglobin Percent 97.4 Total Hemoglobin 9.2 L Blood Gas Temperature 37.0 Blood Gas Respiration Rate 22.0 Blood Gas Actual Respiration Rate 22 Blood Gas Modality MASK - BIPAP FiO2 30.0 Blood Gas IPAP/EPAP Ratio 22/8 Blood Gas Notified Whom JLD Blood Gas Notified Time 06/30/2017 8:14:33 AM Test 06/30/17 08:06 06/30/17 08:09 06/30/17 11:42 Iron Level 14 L Total Iron Binding Capacity 241 Percent Iron Saturation 6 L Bedside Glucose 102 119 Medications Medications Current Medications Ondansetron HCl (Zofran Inj) 4 mg Q6H PRN IV NAUSEA AND/OR VOMITING Last administered on 06/27/17 21:40; Admin Dose 4 MG; Start 06/13/17 at 15:30 Acetaminophen (Tylenol Tab) 650 mg Q6H PRN PO PAIN LEVEL 1-3 OR FEVER Last administered on 06/24/17 16:33; Admin Dose 650 MG; Start 06/13/17 at 15:30 Docusate Sodium (Colace) 100 mg Q12H PRN PO CONSTIPATION; Start 06/13/17 at 15 :30 Magnesium Hydroxide (Milk Of Mag) 30 ml DAILY PRN PO CONSTIPATION; Start 06/13 at 15:30 Hydralazine HCl (Apresoline) 10 mg Q6H PRN IV ELEVATED BLOOD PRESSURE Last administered on 06/25/17 08:43; Admin Dose 10 MG; Start 06/13/17 at 15:30 Nitroglycerin (Nitroglycerin (Sl Tab) 0.4 Mg) 1 tab Q5M PRN SL ANGINA; Start 06/13/17 at 15:30 Aspirin (Aspirin) 325 mg DAILY PO Last administered on 06/30/17 11:36; Admin Dose 325 MG; Start 06/14/17 at 09:00 Atorvastatin Calcium (Lipitor) 10 mg HS PO Last administered on 06/16/17 21: 47; Admin Dose 10 MG; Start 06/13/17 at 21:00; Status Future Hold Levothyroxine Sodium (Synthroid) 100 mcg DAILY PO Last administered on 11:38; Admin Dose 100 MCG; Start 06/14/17 at 09:00 Montelukast Sodium (Singulair) 10 mg QHS PO Last administered on 06/29/17 20: 28; Admin Dose 10 MG; Start 06/13/17 at 21:00 Insulin Glargine (Lantus) 10 unit DAILY@20 SC ; Start 06/14/17 at 20:00; Status Future Hold Diagnostic Test (Pha) (Accu-Chek) 1 ea 02 XX Last administered on 06/24/17 02 :03; Admin Dose 1 EA; Start 06/15/17 at 02:00 Miscellaneous Information 1 ea NOTE XX ; Start 06/14/17 at 06:00 Glucose (Glutose) 15 gm Q15M PRN PO DECREASED GLUCOSE; Start 06/14/17 at 06:00 Glucose (Glutose) 22.5 gm Q15M PRN PO DECREASED GLUCOSE; Start 06/14/17 at 06: 00 Dextrose (D50w Syringe) 25 ml Q15M PRN IV DECREASED GLUCOSE Last administered on 06/17/17 04:41; Admin Dose 25 ML; Start 06/14/17 at 06:00 Dextrose (D50w Syringe) 50 ml Q15M PRN IV DECREASED GLUCOSE; Start 06/14/17 at 06:00 Glucagon (Glucagen) 1 mg Q15M PRN IM DECREASED GLUCOSE; Start 06/14/17 at 06: 00 Glucose (Glutose) 15 gm Q15M PRN BUCCAL DECREASED GLUCOSE; Start 06/14/17 at 06:00 Enoxaparin Sodium (Lovenox) 60 mg DAILY SC Last administered on 06/29/17 09: 09; Admin Dose 60 MG; Start 06/17/17 at 09:00 IV Flush (NS 10 ml) 10 ml PRN PRN IV IV PROTOCOL; Start 06/16/17 at 14:00 Haloperidol (Haldol) 1 mg Q12 PRN IV agitation Last administered on 06/16/17 21:56; Admin Dose 1 MG; Start 06/16/17 at 20:30 Metoprolol Tartrate (Lopressor) 50 mg BID PO Last administered on 06/23/17 20 :02; Admin Dose 50 MG; Start 06/19/17 at 21:00; Status Future hold Hydralazine HCl (Apresoline) 50 mg Q8 PO Last administered on 06/30/17 05:21 ; Admin Dose 50 MG; Start 06/21/17 at 14:00 Diltiazem HCl (Cardizem) 60 mg Q8 GTB Last administered on 06/30/17 05:22; Admin Dose 60 MG; Start 06/23/17 at 14:00; Status Future hold Ampicillin (Ampicillin) 500 mg BID PO Last administered on 06/30/17 11:35; Admin Dose 500 MG; Start 06/24/17 at 18:00 Carvedilol (Coreg) 12.5 mg BID PO Last administered on 06/30/17 11:36; Admin Dose 12.5 MG; Start 06/27/17 at 21:00 Pantoprazole (Protonix Iv) 40 mg BID@,18 IV Last administered on 06/30/17t 05:21; Admin Dose 40 MG; Start 06/29/17 at 18:00 WEN GOFF Jun 30, 2017 13:25
[2017-06-30 13:32] LABS: FLD MN% 89.5 %; FLD PMN% 10.5 %; FLD RBC 0 /uL; FLD WBC 57 /cmm
[2017-06-30 13:42] LABS: FLUID GLUCOSE 96 mg/dl; FLUID TYPE THORACENTESIS FLUID
[2017-06-30 13:43] LABS: FLUID LD 168 U/L; FLUID TOTAL PROTEIN < 2.0 g/dl; FLUID TYPE THORACENTESIS FLUID
[2017-06-30 14:18] LABS: FLD CLARITY CLEAR; FLD COLOR YELLOW; FLD TYPE THORACENTHESIS
[2017-06-30] MEDS: FUROSEMIDE 20 MG INJ IV SCH (14:32)
[2017-06-30] MEDS: MONTELUKAST 10 MG TAB PO SCH (21:01)
[2017-06-30] MEDS ORDERED: SOD CHLORIDE 0.9% 500 ML IV ONE (23:30)
[2017-07-01] VITALS (23 sets, daily range): BP systolic 84–139; BP diastolic 43–68; PULSE 36–90; RESP 16–18
[2017-07-01] MEDS: ACCU-CHEK XX SCH (02:00)
[2017-07-01] MEDS: DILTIAZEM 60 MG TAB GTB SCH ×3 (06:33→22:00)
[2017-07-01] MEDS: PANTOPRAZOLE 40 MG INJ IV SCH ×2 (06:33→17:06)
[2017-07-01] MEDS: INSULIN ASPART [NOVOLOG] 3 ML PEN SC SCH ×4 (07:25→20:53)
[2017-07-01] MEDS: LEVOTHYROXINE 100 MCG TAB PO SCH (08:45)
[2017-07-01] MEDS: ASPIRIN 325 MG TAB PO SCH (08:45)
[2017-07-01] MEDS: FUROSEMIDE 20 MG INJ IV SCH (08:48)
[2017-07-01] MEDS: ENOXAPARIN 60 MG/0.6 ML SYG SC SCH (08:52)
[2017-07-01 08:57] LABS: BASOPHILS % 0.1 % (0.0-2.0); EOSINOPHILS # 0.1 10^3/ul (0.0-0.5); EOSINOPHILS % 0.7 % (0.0-7.0); HEMATOCRIT 25.7 % (37.0-47.0); HEMOGLOBIN 7.8 g/dl (12.0-16.0); LYMPHOCYTES # 0.8 10^3/ul (0.8-2.9); LYMPHOCYTES % 8.2 % (15.0-51.0); MEAN CORPUSCULAR HEMOGLOBIN 29.5 pg (29.0-33.0); MEAN CORPUSCULAR HGB CONC 30.4 g/dl (32.0-37.0); MEAN CORPUSCULAR VOLUME 97.3 fl (82.0-101.0); MEAN PLATELET VOLUME 11.1 fl (7.4-10.4); MONOCYTE # 0.7 10^3/ul (0.3-0.9); NEUTROPHIL # 7.6 10^3/ul (1.6-7.5); NEUTROPHILS % 82.6 % (39.0-77.0); PLATELET COUNT 184 10^3/UL (140-415); RED BLOOD COUNT 2.64 10^6/ul (4.20-5.40); RED CELL DISTRIBUTION WIDTH 14.4 % (11.5-14.5); WHITE BLOOD COUNT 9.2 10^3/ul (4.8-10.8)
--- NOTE | 2017-07-01 09:11 | PN ---
DATE: 07/01/2017 SUBJECTIVE: The patient is feeling better, feels stronger. OBJECTIVE: VITAL SIGNS: Temperature 99.5, blood pressure 97/54, respirations 17, pulse of 83, oxygen saturatio n 100% on 3 liter nasal cannula. GENERAL: Well-developed, well-nourished female in no acute distress, lying in bed. CHEST: Clear to auscultation bilaterally except for decreased breath sounds bilateral bases. HEART: Irregular, but no murmurs, gallops or rubs noted. ABDOMEN: Soft, nontender, moderate obesity. Ecchymoses present on the abdominal wall. EXTREMITIES: No cyanosis, clubbing. There is trace bilateral lower extremity and upper extremity e becky. PICC line site clean, dry and intact. NEUROLOGIC: Nonfocal. The patient is alert and oriented x3. LABORATORY DATA: None available, pending at the time of this dictation. ASSESSMENT AND PLAN: 1. Acute respiratory failure with hypercapnia, improved. Patient remains stable off BiPAP this mor iveth, but patient was on BiPAP throughout the night. We will continue with current measures and sta bilize the patient. We will once again see if [facility] would take the patient for further re habilitation and pulmonary care. 2. Atrial fibrillation, improved. We will continue his medications and adjust as necessary. 3. 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 We will eliot nue to adjust medications. The patient received Lasix yesterday. We will continue to follow. 4. Diabetes, stable. Continue with medications. 5. Acute on chronic renal insufficiency, stable. Results are pending from today, but got worse ove r the last several days, was trending on improvement. 6. Anemia. We will continue to monitor and transfuse as necessary. The patient is receiving Epoge n at this time. 7. Urinary tract infection, resolved. No need for further care. Dictated By: MORGAN SNOW MD SR/NTS Conf#: [id number] DID#: [id number] CC: SARAH VINCENT MD;*EndCC*
[2017-07-01 09:21] LABS: CALCIUM 8.7 mg/dl (8.4-10.2); CREATININE 2.33 mg/dl (0.44-1.00); MAGNESIUM 2.2 mg/dl (1.7-2.5); POTASSIUM 4.5 mmol/L (3.5-5.1)
--- NOTE | 2017-07-01 09:39 | CONS ---
Date/Time of Note Date/Time of Note DATE: 07/01/17 TIME: 09:37 Consult Date/Type/Reason Admit Date/Time Jun 14, 2017 at 09:27 Type of Consultation: Pulmonary Ordering Provider: SARAH VINCENT Subjective Patient considerably more comfortable this morning. Awake alert and oriented. Wore BiPAP overnight. Status post thoracentesis. Objective Vital Signs Date Time Temp Pulse Resp B/P Pulse Ox O2 Delivery O2 Flow Rate FiO2 07/01/17 08:02 99.5 83 17 97/54 100 07/01/17 07:18 3.0 07/01/17 07:15 30 06/30/17 18:22 Nasal Cannula Intake and Output 06/30/17 06/30/17 07/01/17 15:00 23:00 07:00 Intake Total 600 ml 70 ml 50 ml Output Total 258 ml 341 ml 750 ml Balance 342 ml -271 ml -700 ml Exam GENERAL: Elderly lady appears comfortable at rest no acute distress VITAL SIGNS: per chart NECK: Supple. No JVD or lymphadenopathy. CARDIAC EXAM: S1, S2. No added sounds or murmurs. CHEST: Diminished air entry right base ABDOMEN: Soft, nontender. No guarding or rebound. Diminished bowel sounds EXTREMITIES: No cyanosis, clubbing or edema. NEUROLOGIC: Generalized weakness. Results/Medications Result Diagram: 07/01/17 0807 07/01/17 0807 Results 24 hrs Laboratory Tests Test 06/30/17 10:00 06/30/17 11:42 06/30/17 17:05 06/30/17 20:44 Body Fluid Type THORACENTESIS FLUID Body Fluid Volume 650.0 Body Fluid Color YELLOW Body Fluid Appearance CLEAR Body Fluid WBC 57 Body Fluid RBC (Auto) 0 Body Fluid Polynuclear WBCs (%) 10.5 Body Fluid Mononuclear Cells % Auto 89.5 Body Fluid Glucose 96 Body Fluid Total Protein < 2.0 Body Fluid Lactate Dehydrogenase 168 Bedside Glucose 119 106 89 Test 07/01/17 07:32 07/01/17 08:07 Bedside Glucose 78 White Blood Count 9.2 Red Blood Count 2.64 L Hemoglobin 7.8 L Hematocrit 25.7 L Mean Corpuscular Volume 97.3 Mean Corpuscular Hemoglobin 29.5 Mean Corpuscular Hemoglobin Concent 30.4 L Red Cell Distribution Width 14.4 Platelet Count 184 Mean Platelet Volume 11.1 H Neutrophils % 82.6 H Lymphocytes % 8.2 L Monocytes % 8.0 Eosinophils % 0.7 Basophils % 0.1 Nucleated Red Blood Cells % 0.0 Neutrophils # 7.6 H Lymphocytes # 0.8 Monocytes # 0.7 Eosinophils # 0.1 Basophils # 0.0 Nucleated Red Blood Cells # 0.0 Sodium Level 146 H Potassium Level 4.5 Chloride Level 114 H Carbon Dioxide Level 27 Anion Gap 10 Blood Urea Nitrogen 60 H Creatinine 2.33 H Glucose Level 83 Calcium Level 8.7 Magnesium Level 2.2 Medications Current Medications Ondansetron HCl (Zofran Inj) 4 mg Q6H PRN IV NAUSEA AND/OR VOMITING Last administered on 06/27/17 21:40; Admin Dose 4 MG; Start 06/13/17 at 15:30 Acetaminophen (Tylenol Tab) 650 mg Q6H PRN PO PAIN LEVEL 1-3 OR FEVER Last administered on 06/24/17 16:33; Admin Dose 650 MG; Start 06/13/17 at 15:30 Docusate Sodium (Colace) 100 mg Q12H PRN PO CONSTIPATION; Start 06/13/17 at 15 :30 Magnesium Hydroxide (Milk Of Mag) 30 ml DAILY PRN PO CONSTIPATION; Start 06/13 at 15:30 Hydralazine HCl (Apresoline) 10 mg Q6H PRN IV ELEVATED BLOOD PRESSURE Last administered on 06/25/17 08:43; Admin Dose 10 MG; Start 06/13/17 at 15:30 Nitroglycerin (Nitroglycerin (Sl Tab) 0.4 Mg) 1 tab Q5M PRN SL ANGINA; Start 06/13/17 at 15:30 Aspirin (Aspirin) 325 mg DAILY PO Last administered on 07/01/17 08:45; Admin Dose 325 MG; Start 06/14/17 at 09:00 Atorvastatin Calcium (Lipitor) 10 mg HS PO Last administered on 06/16/17 21: 47; Admin Dose 10 MG; Start 06/13/17 at 21:00; Status Future Hold Levothyroxine Sodium (Synthroid) 100 mcg DAILY PO Last administered on 08:45; Admin Dose 100 MCG; Start 06/14/17 at 09:00 Montelukast Sodium (Singulair) 10 mg QHS PO Last administered on 06/30/17 21: 01; Admin Dose 10 MG; Start 06/13/17 at 21:00 Insulin Glargine (Lantus) 10 unit DAILY@20 SC ; Start 06/14/17 at 20:00; Status Future Hold Diagnostic Test (Pha) (Accu-Chek) 1 ea 02 XX Last administered on 06/24/17 02 :03; Admin Dose 1 EA; Start 06/15/17 at 02:00 Miscellaneous Information 1 ea NOTE XX ; Start 06/14/17 at 06:00 Glucose (Glutose) 15 gm Q15M PRN PO DECREASED GLUCOSE; Start 06/14/17 at 06:00 Glucose (Glutose) 22.5 gm Q15M PRN PO DECREASED GLUCOSE; Start 06/14/17 at 06: 00 Dextrose (D50w Syringe) 25 ml Q15M PRN IV DECREASED GLUCOSE Last administered on 06/17/17 04:41; Admin Dose 25 ML; Start 06/14/17 at 06:00 Dextrose (D50w Syringe) 50 ml Q15M PRN IV DECREASED GLUCOSE; Start 06/14/17 at 06:00 Glucagon (Glucagen) 1 mg Q15M PRN IM DECREASED GLUCOSE; Start 06/14/17 at 06: 00 Glucose (Glutose) 15 gm Q15M PRN BUCCAL DECREASED GLUCOSE; Start 06/14/17 at 06:00 Enoxaparin Sodium (Lovenox) 60 mg DAILY SC Last administered on 07/01/17 08: 52; Admin Dose 60 MG; Start 06/17/17 at 09:00 IV Flush (NS 10 ml) 10 ml PRN PRN IV IV PROTOCOL; Start 06/16/17 at 14:00 Haloperidol (Haldol) 1 mg Q12 PRN IV agitation Last administered on 06/16/17 21:56; Admin Dose 1 MG; Start 06/16/17 at 20:30 Metoprolol Tartrate (Lopressor) 50 mg BID PO Last administered on 06/23/17 20 :02; Admin Dose 50 MG; Start 06/19/17 at 21:00; Status Future hold Diltiazem HCl (Cardizem) 60 mg Q8 GTB Last administered on 07/01/17 06:33; Admin Dose 60 MG; Start 06/23/17 at 14:00; Status Future hold Carvedilol (Coreg) 12.5 mg BID PO Last administered on 06/30/17 21:01; Admin Dose 12.5 MG; Start 06/27/17 at 21:00 Pantoprazole (Protonix Iv) 40 mg BID@06,18 IV Last administered on 07/01/17 06:33; Admin Dose 40 MG; Start 06/29/17 at 18:00 Furosemide (Lasix) 20 mg DAILY IV Last administered on 07/01/17 08:48; Admin Dose 20 MG; Start 06/30/17 at 13:30 Hydralazine HCl (Apresoline) 25 mg Q8 PO ; Start 06/30/17 at 14:00 Assessment/Plan Chief Complaint/Hosp Course IMPRESSION: 1. Acute hypercapnic respiratory failure, placed back on BiPAP. Repeat arterial blood gas in several hours. Repeat chest x-ray shows increasing right pleural effusion previous thoracentesis been performed 2. History of hypertension. 3. Atrial fibrillation with rapid ventricular rate. Still requiring rate control. 4. Diabetes mellitus. 5. Status post shock. 6. Acute renal failure. Likely ATN injury. Renal function appears to be stabilizing. Plan 1. Continue BiPAP at night. 2. Rate control per cardiology. 3. No sedation. 4. Deep venous thrombosis and gastrointestinal prophylaxis. 5. Aspiration precautions. Advance diet now off BiPAP. 6. Transfer to [place] ? Problems: YAZMIN VARGAS MD, [facility] Jul 01, 2017 09:39
--- NOTE | 2017-07-01 10:52 | CONS ---
Date/Time of Note Date/Time of Note DATE: 07/01/17 TIME: 10:50 Assessment/Plan Assessment/Plan Additional Assessment/Plan 1.Hypotension-improved off of pressors/NL EF by echo this admit-now HTN well controlled on current regimen - better now 2. AF with RVR-yesterday apparently had pause 3 seconds and all estrella agents were held- stable overall - will monitor for now 3. Renal failure-ongoing 4. Hypercarbic resp failure s/p extubation-improved off BIPAP in ICU 5. Hypothyroid 6. Pleural effusion-s/p thoracentesis - improved Consultation Date/Type/Reason Admit Date/Time Jun 14, 2017 at 09:27 Type of Consultation: Pulmonary Referring Provider: SARAH VINCENT 24 HR Interval Summary Free Text/Dictation NO acute events - BP in good range - NO CP now - rate overall controlled - will monitor for now. ROS: No fever, no chills, no nausea, no vomiting, no diarrhea/constipation No recent weight changes No chest pain, no PND, no orthopnea + SOB No dizziness, blurred vision No thirst, no heat or cold intolerance Exam/Review of Systems Vital Signs Vitals Vital Signs Date Time Temp Pulse Resp B/P Pulse Ox O2 Delivery O2 Flow Rate FiO2 07/01/17 08:02 99.5 83 17 97/54 100 07/01/17 07:18 3.0 07/01/17 07:15 30 06/30/17 18:22 Nasal Cannula Intake and Output 06/30/17 06/30/17 07/01/17 15:00 23:00 07:00 Intake Total 600 ml 70 ml 50 ml Output Total 258 ml 341 ml 750 ml Balance 342 ml -271 ml -700 ml Exam General: WN/WD/NAD, AOx 0-1 HEENT: Unicetric/atraumatic/EOMI (follow commands) NECK: JVD elevated, no thyromegaly Lymph: no lymphadenopathy HEART: irregular with no S3, II/ systolic murmur at apex LUNGS: Coarse sounds ABD: soft, NT, ND, +BS : Intact Neuro: non focal SKIN: chronic changes EXT: trace edema Results Result Diagram: 07/01/17 0807 07/01/17 0807 Results 24 hrs Laboratory Tests Test 06/30/17 11:42 06/30/17 17:05 06/30/17 20:44 07/01/17 07:32 Bedside Glucose 119 106 89 78 Test 07/01/17 08:07 White Blood Count 9.2 Red Blood Count 2.64 L Hemoglobin 7.8 L Hematocrit 25.7 L Mean Corpuscular Volume 97.3 Mean Corpuscular Hemoglobin 29.5 Mean Corpuscular Hemoglobin Concent 30.4 L Red Cell Distribution Width 14.4 Platelet Count 184 Mean Platelet Volume 11.1 H Neutrophils % 82.6 H Lymphocytes % 8.2 L Monocytes % 8.0 Eosinophils % 0.7 Basophils % 0.1 Nucleated Red Blood Cells % 0.0 Neutrophils # 7.6 H Lymphocytes # 0.8 Monocytes # 0.7 Eosinophils # 0.1 Basophils # 0.0 Nucleated Red Blood Cells # 0.0 Sodium Level 146 H Potassium Level 4.5 Chloride Level 114 H Carbon Dioxide Level 27 Anion Gap 10 Blood Urea Nitrogen 60 H Creatinine 2.33 H Glucose Level 83 Calcium Level 8.7 Magnesium Level 2.2 Medications Medications Current Medications Ondansetron HCl (Zofran Inj) 4 mg Q6H PRN IV NAUSEA AND/OR VOMITING Last administered on 06/27/17 21:40; Admin Dose 4 MG; Start 06/13/17 at 15:30 Acetaminophen (Tylenol Tab) 650 mg Q6H PRN PO PAIN LEVEL 1-3 OR FEVER Last administered on 06/24/17 16:33; Admin Dose 650 MG; Start 06/13/17 at 15:30 Docusate Sodium (Colace) 100 mg Q12H PRN PO CONSTIPATION; Start 06/13/17 at 15 :30 Magnesium Hydroxide (Milk Of Mag) 30 ml DAILY PRN PO CONSTIPATION; Start 06/13 at 15:30 Hydralazine HCl (Apresoline) 10 mg Q6H PRN IV ELEVATED BLOOD PRESSURE Last administered on 06/25/17 08:43; Admin Dose 10 MG; Start 06/13/17 at 15:30 Nitroglycerin (Nitroglycerin (Sl Tab) 0.4 Mg) 1 tab Q5M PRN SL ANGINA; Start 06/13/17 at 15:30 Aspirin (Aspirin) 325 mg DAILY PO Last administered on 07/01/17 08:45; Admin Dose 325 MG; Start 06/14/17 at 09:00 Atorvastatin Calcium (Lipitor) 10 mg HS PO Last administered on 06/16/17 21: 47; Admin Dose 10 MG; Start 06/13/17 at 21:00; Status Future Hold Levothyroxine Sodium (Synthroid) 100 mcg DAILY PO Last administered on 08:45; Admin Dose 100 MCG; Start 06/14/17 at 09:00 Montelukast Sodium (Singulair) 10 mg QHS PO Last administered on 06/30/17 21: 01; Admin Dose 10 MG; Start 06/13/17 at 21:00 Insulin Glargine (Lantus) 10 unit DAILY@20 SC ; Start 06/14/17 at 20:00; Status Future Hold Diagnostic Test (Pha) (Accu-Chek) 1 ea 02 XX Last administered on 06/24/17 02 :03; Admin Dose 1 EA; Start 06/15/17 at 02:00 Miscellaneous Information 1 ea NOTE XX ; Start 06/14/17 at 06:00 Glucose (Glutose) 15 gm Q15M PRN PO DECREASED GLUCOSE; Start 06/14/17 at 06:00 Glucose (Glutose) 22.5 gm Q15M PRN PO DECREASED GLUCOSE; Start 06/14/17 at 06: 00 Dextrose (D50w Syringe) 25 ml Q15M PRN IV DECREASED GLUCOSE Last administered on 06/17/17 04:41; Admin Dose 25 ML; Start 06/14/17 at 06:00 Dextrose (D50w Syringe) 50 ml Q15M PRN IV DECREASED GLUCOSE; Start 06/14/17 at 06:00 Glucagon (Glucagen) 1 mg Q15M PRN IM DECREASED GLUCOSE; Start 06/14/17 at 06: 00 Glucose (Glutose) 15 gm Q15M PRN BUCCAL DECREASED GLUCOSE; Start 06/14/17 at 06:00 Enoxaparin Sodium (Lovenox) 60 mg DAILY SC Last administered on 07/01/17 08: 52; Admin Dose 60 MG; Start 06/17/17 at 09:00 IV Flush (NS 10 ml) 10 ml PRN PRN IV IV PROTOCOL; Start 06/16/17 at 14:00 Haloperidol (Haldol) 1 mg Q12 PRN IV agitation Last administered on 06/16/17 21:56; Admin Dose 1 MG; Start 06/16/17 at 20:30 Metoprolol Tartrate (Lopressor) 50 mg BID PO Last administered on 06/23/17 20 :02; Admin Dose 50 MG; Start 06/19/17 at 21:00; Status Future hold Diltiazem HCl (Cardizem) 60 mg Q8 GTB Last administered on 07/01/17 06:33; Admin Dose 60 MG; Start 06/23/17 at 14:00; Status Future hold Carvedilol (Coreg) 12.5 mg BID PO Last administered on 06/30/17 21:01; Admin Dose 12.5 MG; Start 06/27/17 at 21:00 Pantoprazole (Protonix Iv) 40 mg BID@,18 IV Last administered on 07/01/17 06:33; Admin Dose 40 MG; Start 06/29/17 at 18:00 Furosemide (Lasix) 20 mg DAILY IV Last administered on 07/01/17 08:48; Admin Dose 20 MG; Start 06/30/17 at 13:30 Hydralazine HCl (Apresoline) 25 mg Q8 PO ; Start 06/30/17 at 14:00 LILIAN ABEBE MD Jul 01, 2017 10:52
[2017-07-01] MEDS: BALSAM PERU/CASTOR OIL 60 GM TUBE TOP SCH ×2 (13:18→20:53)
[2017-07-01] MEDS: MONTELUKAST 10 MG TAB PO SCH (20:51)
[2017-07-02] VITALS (17 sets, daily range): BP systolic 103–161; BP diastolic 51–81; PULSE 62–78; RESP 16–20
[2017-07-02] MEDS: ACCU-CHEK XX SCH (01:31)
[2017-07-02] MEDS: PANTOPRAZOLE 40 MG INJ IV SCH (05:23)
[2017-07-02] MEDS: DILTIAZEM 60 MG TAB GTB SCH ×3 (05:23→21:48)
[2017-07-02] MEDS: INSULIN ASPART [NOVOLOG] 3 ML PEN SC SCH ×4 (07:25→20:11)
[2017-07-02 07:45] LABS: BASOPHILS % 0.2 % (0.0-2.0); EOSINOPHILS # 0.1 10^3/ul (0.0-0.5); EOSINOPHILS % 1.3 % (0.0-7.0); HEMATOCRIT 26.5 % (37.0-47.0); HEMOGLOBIN 8.1 g/dl (12.0-16.0); LYMPHOCYTES # 0.8 10^3/ul (0.8-2.9); MEAN CORPUSCULAR HGB CONC 30.6 g/dl (32.0-37.0); MEAN CORPUSCULAR VOLUME 98.1 fl (82.0-101.0); MEAN PLATELET VOLUME 10.9 fl (7.4-10.4); MONOCYTE # 0.7 10^3/ul (0.3-0.9); MONOCYTES % 7.9 % (0.0-11.0); NEUTROPHIL # 7.5 10^3/ul (1.6-7.5); NEUTROPHILS % 81.2 % (39.0-77.0); PLATELET COUNT 186 10^3/UL (140-415); RED CELL DISTRIBUTION WIDTH 14.4 % (11.5-14.5); WHITE BLOOD COUNT 9.3 10^3/ul (4.8-10.8)
[2017-07-02 08:13] LABS: CALCIUM 8.6 mg/dl (8.4-10.2); CREATININE 2.34 mg/dl (0.44-1.00); MAGNESIUM 2.2 mg/dl (1.7-2.5); POTASSIUM 4.4 mmol/L (3.5-5.1)
[2017-07-02] MEDS ORDERED: FUROSEMIDE 20 MG INJ IV ONE (08:30)
[2017-07-02] MEDS: ASPIRIN 325 MG TAB PO SCH (08:50)
[2017-07-02] MEDS: BALSAM PERU/CASTOR OIL 60 GM TUBE TOP SCH ×2 (08:51→20:13)
[2017-07-02] MEDS: LEVOTHYROXINE 100 MCG TAB PO SCH (08:51)
--- NOTE | 2017-07-02 08:54 | PN ---
DATE: 07/02/2017 SUBJECTIVE: The patient is feeling better, better appetite, less shortness of breath. OBJECTIVE: VITAL SIGNS: Temperature 98.0, pulse 72, respirations 20, blood pressure 121/60, oxygen saturation 97% on 2 liter nasal cannula oxygen. GENERAL: Well-developed, well-nourished female in no acute distress, lying in bed. CHEST: Clear to auscultation bilaterally except for decreased breath sounds bilateral bases. HEART: Regular. ABDOMEN: Soft, nontender, normoactive bowel sounds. EXTREMITIES: 1 to 2+ edema bilateral lower extremities, 1 to 2+ on the left upper extremity and tra ce on the right upper extremity. NEUROLOGIC: Nonfocal. LABORATORY DATA: White blood cell count 9.3, hemoglobin 8.1, hematocrit 26.5, platelets 186. Creat inine is pending at the time of this dictation. ASSESSMENT AND PLAN: 1. Acute respiratory failure with hypercapnia. The patient is improved and tolerating the BiPAP wi th clear mentation. I do not see a need for doing a blood gas analysis as patient seems to be stabl e. We will continue to exploratory [facility] as a potential option for the patien t for further pulmonary care. 2. Atrial fibrillation, remains improved with current medications. We will continue to adjust as n ecessary. 3. Acute on chronic congestive heart failure combined/coronary artery disease/hypertension, remains stable. We will give small amount of Lasix today to improve her fluid overload. 4. Acute on chronic renal insufficiency, creatinine is pending today, but was improved as of yester day. We will continue to monitor. 5. Anemia, remains stable. We will continue to monitor. Patient with low iron and awaiting stools in order to test for occult blood. We will continue with prophylaxis with pantoprazole. 6. Diabetes, remains stable. Continue with medications and diet. 7. Depression, stable. Continue with medications. 8. Hypothyroidism, stable. Continue with medications. Dictated By: MORGAN SNOW MD, SR/NTS Conf#: [id number] DID#: [id number]
[2017-07-02] MEDS: FUROSEMIDE 20 MG INJ IV SCH (08:55)
[2017-07-02] MEDS: ENOXAPARIN 60 MG/0.6 ML SYG SC SCH (09:00)
--- NOTE | 2017-07-02 12:34 | CONS ---
Date/Time of Note Date/Time of Note DATE: 07/02/17 TIME: 12:33 Consult Date/Type/Reason Admit Date/Time Jun 14, 2017 at 09:27 Type of Consultation: Pulmonary Ordering Provider: SARAH VINCENT Subjective Patient comfortable this morning. Objective Vital Signs Date Time Temp Pulse Resp B/P Pulse Ox O2 Delivery O2 Flow Rate FiO2 07/02/17 12:32 66 07/02/17 11:40 99.2 17 111/57 91 07/02/17 05:48 2.0 07/02/17 03:20 30 06/30/17 18:22 Nasal Cannula Intake and Output 07/01/17 07/01/17 07/02/17 14:59 22:59 06:59 Intake Total 200 ml 150 ml Output Total 675 ml 500 ml Balance -475 ml -350 ml Exam GENERAL: Elderly lady appears comfortable at rest no acute distress VITAL SIGNS: per chart NECK: Supple. No JVD or lymphadenopathy. CARDIAC EXAM: S1, S2. No added sounds or murmurs. CHEST: Diminished air entry right base ABDOMEN: Soft, nontender. No guarding or rebound. Diminished bowel sounds EXTREMITIES: No cyanosis, clubbing or edema. NEUROLOGIC: Generalized weakness. Results/Medications Result Diagram: 07/02/17 0644 07/02/17 0644 Results 24 hrs Laboratory Tests Test 07/01/17 16:59 07/01/17 20:08 07/02/17 06:44 07/02/17 07:39 Bedside Glucose 93 104 89 White Blood Count 9.3 Red Blood Count 2.70 L Hemoglobin 8.1 L Hematocrit 26.5 L Mean Corpuscular Volume 98.1 Mean Corpuscular Hemoglobin 30.0 Mean Corpuscular Hemoglobin Concent 30.6 L Red Cell Distribution Width 14.4 Platelet Count 186 Mean Platelet Volume 10.9 H Neutrophils % 81.2 H Lymphocytes % 9.0 L Monocytes % 7.9 Eosinophils % 1.3 Basophils % 0.2 Nucleated Red Blood Cells % 0.0 Neutrophils # 7.5 Lymphocytes # 0.8 Monocytes # 0.7 Eosinophils # 0.1 Basophils # 0.0 Nucleated Red Blood Cells # 0.0 Sodium Level 147 H Potassium Level 4.4 Chloride Level 110 Carbon Dioxide Level 27 Anion Gap 14 Blood Urea Nitrogen 61 H Creatinine 2.34 H Glucose Level 85 Calcium Level 8.6 Magnesium Level 2.2 Test 07/02/17 11:40 Bedside Glucose 92 Medications Current Medications Ondansetron HCl (Zofran Inj) 4 mg Q6H PRN IV NAUSEA AND/OR VOMITING Last administered on 06/27/17 21:40; Admin Dose 4 MG; Start 06/13/17 at 15:30 Acetaminophen (Tylenol Tab) 650 mg Q6H PRN PO PAIN LEVEL 1-3 OR FEVER Last administered on 06/24/17 16:33; Admin Dose 650 MG; Start 06/13/17 at 15:30 Docusate Sodium (Colace) 100 mg Q12H PRN PO CONSTIPATION; Start 06/13/17 at 15 :30 Magnesium Hydroxide (Milk Of Mag) 30 ml DAILY PRN PO CONSTIPATION Last administered on 07/02/17 08:51; Admin Dose 30 ML; Start 06/13/17 at 15:30 Hydralazine HCl (Apresoline) 10 mg Q6H PRN IV ELEVATED BLOOD PRESSURE Last administered on 06/25/17 08:43; Admin Dose 10 MG; Start 06/13/17 at 15:30 Nitroglycerin (Nitroglycerin (Sl Tab) 0.4 Mg) 1 tab Q5M PRN SL ANGINA; Start 06/13/17 at 15:30 Aspirin (Aspirin) 325 mg DAILY PO Last administered on 07/02/17 08:50; Admin Dose 325 MG; Start 06/14/17 at 09:00 Atorvastatin Calcium (Lipitor) 10 mg HS PO Last administered on 06/16/17 21: 47; Admin Dose 10 MG; Start 06/13/17 at 21:00; Status Future Hold Levothyroxine Sodium (Synthroid) 100 mcg DAILY PO Last administered on 08:51; Admin Dose 100 MCG; Start 06/14/17 at 09:00 Montelukast Sodium (Singulair) 10 mg QHS PO Last administered on 07/01/17 20: 51; Admin Dose 10 MG; Start 06/13/17 at 21:00 Insulin Glargine (Lantus) 10 unit DAILY@20 SC ; Start 06/14/17 at 20:00; Status Future Hold Diagnostic Test (Pha) (Accu-Chek) 1 ea 02 XX Last administered on 06/24/17 02 :03; Admin Dose 1 EA; Start 06/15/17 at 02:00 Miscellaneous Information 1 ea NOTE XX ; Start 06/14/17 at 06:00 Glucose (Glutose) 15 gm Q15M PRN PO DECREASED GLUCOSE; Start 06/14/17 at 06:00 Glucose (Glutose) 22.5 gm Q15M PRN PO DECREASED GLUCOSE; Start 06/14/17 at 06: 00 Dextrose (D50w Syringe) 25 ml Q15M PRN IV DECREASED GLUCOSE Last administered on 06/17/17 04:41; Admin Dose 25 ML; Start 06/14/17 at 06:00 Dextrose (D50w Syringe) 50 ml Q15M PRN IV DECREASED GLUCOSE; Start 06/14/17 at 06:00 Glucagon (Glucagen) 1 mg Q15M PRN IM DECREASED GLUCOSE; Start 06/14/17 at 06: 00 Glucose (Glutose) 15 gm Q15M PRN BUCCAL DECREASED GLUCOSE; Start 06/14/17 at 06:00 Enoxaparin Sodium (Lovenox) 60 mg DAILY SC Last administered on 07/02/17 09: 00; Admin Dose 60 MG; Start 06/17/17 at 09:00 IV Flush (NS 10 ml) 10 ml PRN PRN IV IV PROTOCOL; Start 06/16/17 at 14:00 Haloperidol (Haldol) 1 mg Q12 PRN IV agitation Last administered on 06/16/17 21:56; Admin Dose 1 MG; Start 06/16/17 at 20:30 Metoprolol Tartrate (Lopressor) 50 mg BID PO Last administered on 06/23/17 20 :02; Admin Dose 50 MG; Start 06/19/17 at 21:00; Status Future hold Diltiazem HCl (Cardizem) 60 mg Q8 GTB Last administered on 07/02/17 05:23; Admin Dose 60 MG; Start 06/23/17 at 14:00; Status Future hold Carvedilol (Coreg) 12.5 mg BID PO Last administered on 07/02/17 08:51; Admin Dose 12.5 MG; Start 06/27/17 at 21:00 Pantoprazole (Protonix Iv) 40 mg BID@,18 IV Last administered on 07/02/17 05:23; Admin Dose 40 MG; Start 11/26/17 at 18:00 Furosemide (Lasix) 20 mg DAILY IV Last administered on 07/02/17 08:55; Admin Dose 20 MG; Start 06/30/17 at 13:30 Hydralazine HCl (Apresoline) 25 mg Q8 PO Last administered on 07/01/17 13:19 ; Admin Dose 25 MG; Start 06/30/17 at 14:00 Assessment/Plan Chief Complaint/Hosp Course IMPRESSION: 1. Acute hypercapnic respiratory failure, placed back on BiPAP. Repeat arterial blood gas in several hours. Repeat chest x-ray shows increasing right pleural effusion previous thoracentesis been performed 2. History of hypertension. 3. Atrial fibrillation with rapid ventricular rate. Currently rate controlled 4. Diabetes mellitus. 5. Status post shock. 6. Renal insufficiency. Plan 1. Continue BiPAP at night. 2. Rate control per cardiology. 3. Avoid sedation. 4. Deep venous thrombosis and gastrointestinal prophylaxis. 5. Aspiration precautions. 6. Transfer to [place] ? Problems: YAZMIN VARGAS MD, [facility] Jul 02, 2017 12:34
--- NOTE | 2017-07-02 13:43 | CONS ---
Date/Time of Note Date/Time of Note DATE: 07/02/17 TIME: 13:38 Assessment/Plan Assessment/Plan Chief Complaint/Hosp Course IMP: 1.Hypotension-improved off of pressors/NL EF by echo this admit-now HTN with some lability 2. AF with RVR-yesterday apparently had pause 3 seconds and all estrella agents were held- now on coreg with rates well controlled but intermittent to high 30's 3. Renal failure-ongoing 4. Hypercarbic resp failure s/p extubation-improved off BIPAP in ICU 5. Hypothyroid 6. PLeural effusion-s/p thoracentesis Recc: -Tele -serial ecg's -Continue lasix diuresis -Continue lovenox QD/asa -Follow HR/BP/volume status closely -Will make slight decrease in dose of BB -Continue hydralazine but discuss compliance with patient as refused dose Problems: Consultation Date/Type/Reason Admit Date/Time Jun 14, 2017 at 09:27 Initial Consult Date 06/15/17 Type of Consultation: cardiology Reason for Consultation AF Referring Provider: SARAH VINCENT Exam/Review of Systems Vital Signs Vitals Vital Signs Date Time Temp Pulse Resp B/P Pulse Ox O2 Delivery O2 Flow Rate FiO2 07/02/17 12:32 66 07/02/17 11:40 99.2 17 111/57 91 07/02/17 05:48 2.0 07/02/17 03:20 30 06/30/17 18:22 Nasal Cannula Intake and Output 07/01/17 07/01/17 07/02/17 15:00 23:00 07:00 Intake Total 200 ml 150 ml Output Total 675 ml 500 ml Balance -475 ml -350 ml Exam Review of Systems: CONSTITUTIONAL: No fevers, chills. PULMONARY: mild sob, cough CARDIOVASCULAR: No chest pain/palpitations GASTROINTESTINAL: No nausea/vomiting. GENITOURINARY: No hematuria/dysuria. MUSCULOSKELETAL: No myagias/arthalgias. PSYCHIATRIC: The patient denies depression. NEUROLOGIC: No weakness Constitutional: alert, oriented Psych: no complaints Head: normocephalic ENMT: mucosa pink and moist Neck: jvd (9 CM) Respiratory: diminished breath sounds (AT BASES/b) Cardiovascular: regular rate and rhythm Gastrointestinal: non-tender, soft Musculoskeletal: muscle tone Extremities: pitting pedal edema (TRACE/b) Neurological: other (nO FOCAL DEFICITS) Results Result Diagram: 07/02/17 0644 07/02/17 0644 Results 24 hrs Laboratory Tests Test 07/01/17 16:59 07/01/17 20:08 07/02/17 06:44 07/02/17 07:39 Bedside Glucose 93 104 89 White Blood Count 9.3 Red Blood Count 2.70 L Hemoglobin 8.1 L Hematocrit 26.5 L Mean Corpuscular Volume 98.1 Mean Corpuscular Hemoglobin 30.0 Mean Corpuscular Hemoglobin Concent 30.6 L Red Cell Distribution Width 14.4 Platelet Count 186 Mean Platelet Volume 10.9 H Neutrophils % 81.2 H Lymphocytes % 9.0 L Monocytes % 7.9 Eosinophils % 1.3 Basophils % 0.2 Nucleated Red Blood Cells % 0.0 Neutrophils # 7.5 Lymphocytes # 0.8 Monocytes # 0.7 Eosinophils # 0.1 Basophils # 0.0 Nucleated Red Blood Cells # 0.0 Sodium Level 147 H Potassium Level 4.4 Chloride Level 110 Carbon Dioxide Level 27 Anion Gap 14 Blood Urea Nitrogen 61 H Creatinine 2.34 H Glucose Level 85 Calcium Level 8.6 Magnesium Level 2.2 Test 07/02/17 11:40 Bedside Glucose 92 Medications Medications Current Medications Ondansetron HCl (Zofran Inj) 4 mg Q6H PRN IV NAUSEA AND/OR VOMITING Last administered on 06/27/17 21:40; Admin Dose 4 MG; Start 06/13/17 at 15:30 Acetaminophen (Tylenol Tab) 650 mg Q6H PRN PO PAIN LEVEL 1-3 OR FEVER Last administered on 06/24/17 16:33; Admin Dose 650 MG; Start 06/13/17 at 15:30 Docusate Sodium (Colace) 100 mg Q12H PRN PO CONSTIPATION; Start 06/13/17 at 15 :30 Magnesium Hydroxide (Milk Of Mag) 30 ml DAILY PRN PO CONSTIPATION Last administered on 07/02/17 08:51; Admin Dose 30 ML; Start 06/13/17 at 15:30 Hydralazine HCl (Apresoline) 10 mg Q6H PRN IV ELEVATED BLOOD PRESSURE Last administered on 06/25/17 08:43; Admin Dose 10 MG; Start 06/13/17 at 15:30 Nitroglycerin (Nitroglycerin (Sl Tab) 0.4 Mg) 1 tab Q5M PRN SL ANGINA; Start 06/13/17 at 15:30 Aspirin (Aspirin) 325 mg DAILY PO Last administered on 07/02/17 08:50; Admin Dose 325 MG; Start 06/14/17 at 09:00 Atorvastatin Calcium (Lipitor) 10 mg HS PO Last administered on 06/16/17 21: 47; Admin Dose 10 MG; Start 06/13/17 at 21:00; Status Future Hold Levothyroxine Sodium (Synthroid) 100 mcg DAILY PO Last administered on 08:51; Admin Dose 100 MCG; Start 06/14/17 at 09:00 Montelukast Sodium (Singulair) 10 mg QHS PO Last administered on 07/01/17 20: 51; Admin Dose 10 MG; Start 06/13/17 at 21:00 Insulin Glargine (Lantus) 10 unit DAILY@20 SC ; Start 06/14/17 at 20:00; Status Future Hold Diagnostic Test (Pha) (Accu-Chek) 1 ea 02 XX Last administered on 06/24/17 02 :03; Admin Dose 1 EA; Start 06/15/17 at 02:00 Miscellaneous Information 1 ea NOTE XX ; Start 06/14/17 at 06:00 Glucose (Glutose) 15 gm Q15M PRN PO DECREASED GLUCOSE; Start 06/14/17 at 06:00 Glucose (Glutose) 22.5 gm Q15M PRN PO DECREASED GLUCOSE; Start 06/14/17 at 06: 00 Dextrose (D50w Syringe) 25 ml Q15M PRN IV DECREASED GLUCOSE Last administered on 06/17/17 04:41; Admin Dose 25 ML; Start 06/14/17 at 06:00 Dextrose (D50w Syringe) 50 ml Q15M PRN IV DECREASED GLUCOSE; Start 06/14/17 at 06:00 Glucagon (Glucagen) 1 mg Q15M PRN IM DECREASED GLUCOSE; Start 06/14/17 at 06: 00 Glucose (Glutose) 15 gm Q15M PRN BUCCAL DECREASED GLUCOSE; Start 06/14/17 at 06:00 Enoxaparin Sodium (Lovenox) 60 mg DAILY SC Last administered on 07/02/17 09: 00; Admin Dose 60 MG; Start 06/17/17 at 09:00 IV Flush (NS 10 ml) 10 ml PRN PRN IV IV PROTOCOL; Start 06/16/17 at 14:00 Haloperidol (Haldol) 1 mg Q12 PRN IV agitation Last administered on 06/16/17 21:56; Admin Dose 1 MG; Start 06/16/17 at 20:30 Metoprolol Tartrate (Lopressor) 50 mg BID PO Last administered on 06/23/17 20 :02; Admin Dose 50 MG; Start 06/19/17 at 21:00; Status Future hold Diltiazem HCl (Cardizem) 60 mg Q8 GTB Last administered on 07/02/17 05:23; Admin Dose 60 MG; Start 06/23/17 at 14:00; Status Future hold Carvedilol (Coreg) 12.5 mg BID PO Last administered on 07/02/17 08:51; Admin Dose 12.5 MG; Start 06/27/17 at 21:00 Pantoprazole (Protonix Iv) 40 mg BID@06,18 IV Last administered on 07/02/17 05:23; Admin Dose 40 MG; Start 06/29/17 at 18:00 Furosemide (Lasix) 20 mg DAILY IV Last administered on 07/02/17 08:55; Admin Dose 20 MG; Start 06/30/17 at 13:30 Hydralazine HCl (Apresoline) 25 mg Q8 PO Last administered on 07/01/17 13:19 ; Admin Dose 25 MG; Start 06/30/17 at 14:00 WEN GOFF 29, 2017 13:43
[2017-07-02] MEDS: PANTOPRAZOLE (EC) 40 MG TAB PO SCH (17:20)
[2017-07-02] MEDS: MONTELUKAST 10 MG TAB PO SCH (20:12)
[2017-07-03] VITALS (18 sets, daily range): BP systolic 110–153; BP diastolic 59–86; PULSE 56–98; RESP 18–20
[2017-07-03] MEDS: ACCU-CHEK XX SCH ×2 (01:41→22:48)
[2017-07-03] MEDS: DILTIAZEM 60 MG TAB GTB SCH ×3 (05:45→21:28)
[2017-07-03] MEDS: PANTOPRAZOLE (EC) 40 MG TAB PO SCH ×2 (05:46→17:25)
[2017-07-03] MEDS: INSULIN ASPART [NOVOLOG] 3 ML PEN SC SCH ×4 (07:25→21:00)
[2017-07-03] MEDS ORDERED: FUROSEMIDE 20 MG INJ IV ONE ×2 (08:30→19:00)
[2017-07-03] MEDS: ASPIRIN 325 MG TAB PO SCH (09:06)
[2017-07-03] MEDS: LEVOTHYROXINE 100 MCG TAB PO SCH (09:06)
[2017-07-03] MEDS: FUROSEMIDE 20 MG INJ IV SCH (09:07)
[2017-07-03] MEDS: BALSAM PERU/CASTOR OIL 60 GM TUBE TOP SCH ×2 (09:07→21:00)
[2017-07-03 09:18] LABS: BASOPHILS % 0.1 % (0.0-2.0); EOSINOPHILS # 0.1 10^3/ul (0.0-0.5); EOSINOPHILS % 1.5 % (0.0-7.0); HEMATOCRIT 25.8 % (37.0-47.0); HEMOGLOBIN 7.9 g/dl (12.0-16.0); LYMPHOCYTES # 0.8 10^3/ul (0.8-2.9); LYMPHOCYTES % 8.5 % (15.0-51.0); MEAN CORPUSCULAR HEMOGLOBIN 29.7 pg (29.0-33.0); MEAN CORPUSCULAR HGB CONC 30.6 g/dl (32.0-37.0); MEAN PLATELET VOLUME 11.3 fl (7.4-10.4); MONOCYTE # 0.7 10^3/ul (0.3-0.9); MONOCYTES % 7.5 % (0.0-11.0); NEUTROPHIL # 7.7 10^3/ul (1.6-7.5); NEUTROPHILS % 81.9 % (39.0-77.0); PLATELET COUNT 187 10^3/UL (140-415); RED BLOOD COUNT 2.66 10^6/ul (4.20-5.40); RED CELL DISTRIBUTION WIDTH 14.6 % (11.5-14.5); WHITE BLOOD COUNT 9.4 10^3/ul (4.8-10.8)
[2017-07-03] MEDS: ENOXAPARIN 60 MG/0.6 ML SYG SC SCH (09:20)
[2017-07-03 09:57] LABS: CALCIUM 8.6 mg/dl (8.4-10.2); CREATININE 2.08 mg/dl (0.44-1.00); MAGNESIUM 2.1 mg/dl (1.7-2.5); POTASSIUM 4.4 mmol/L (3.5-5.1)
--- NOTE | 2017-07-03 10:23 | RADRPT ---
PROCEDURE: XR Chest. CLINICAL INDICATION: Pneumonia TECHNIQUE: An AP view of the chest was obtained. COMPARISON: CHEST 06/30/2017; CHEST 06/30/2017; CHEST 06/29/2017; CHEST 06/28/2017; KRIS CHEST 11/18/2015; CR CHEST 07/28/2015; CR CHEST 12/19/2014; CR CHEST 12/17/2014 FINDINGS: The enteric tube has been removed. There is a left upper extremity PICC line with tip in the mid SV C. There is prominence of the interstitial and central pulmonary vascular markings with small bilatera l pleural effusions. No focal airspace opacification or pneumothorax is seen. The cardiomediastin al silhouette is mildly enlarged . Calcifications are seen within the aortic arch. The osseous str uctures demonstrate senescent changes. IMPRESSION: 1. Findings suggestive of pulmonary vascular congestion with small bilateral pleural effusions. No significant interval change. 2. Mild cardiomegaly and aortic atherosclerosis. 3. Tubes and lines, as described above. RPTAT: HH .Ramandeep Cagle MD, MD Date Time Electronically viewed and signed by .Ramandeep Cagle MD, MD on 07/03/2017 10:23 .G/
--- NOTE | 2017-07-03 11:05 | CONS ---
Date/Time of Note Date/Time of Note DATE: 07/03/17 TIME: 11:03 Consult Date/Type/Reason Admit Date/Time Jun 14, 2017 at 09:27 Type of Consultation: Pulmonary Ordering Provider: SARAH VINCENT Subjective Increasing lethargy this morning. Placed back on BiPAP. Easily arousable on BiPAP currently. Objective Vital Signs Date Time Temp Pulse Resp B/P Pulse Ox O2 Delivery O2 Flow Rate FiO2 07/03/17 08:00 68 07/03/17 07:44 98.4 19 136/64 99 07/03/17 05:53 Nasal Cannula 2.0 07/03/17 03:30 30 Intake and Output 07/02/17 07/02/17 07/03/17 15:00 23:00 07:00 Intake Total 700 ml 400 ml Output Total 1150 ml 750 ml Balance -450 ml -350 ml Exam GENERAL: Elderly lady appears comfortable at rest no acute distress VITAL SIGNS: per chart NECK: Supple. No JVD or lymphadenopathy. CARDIAC EXAM: S1, S2. No added sounds or murmurs. CHEST: Diminished air entry right base ABDOMEN: Soft, nontender. No guarding or rebound. Diminished bowel sounds EXTREMITIES: No cyanosis, clubbing or edema. NEUROLOGIC: Generalized weakness. Results/Medications Result Diagram: 07/03/1731 07/03/17 0831 Results 24 hrs Laboratory Tests Test 07/02/17 11:40 07/02/17 17:07 07/02/17 20:11 07/03/17 05:30 Bedside Glucose 92 87 94 Stool Occult Blood POSITIVE Test 07/03/17 08:31 07/03/17 08:35 White Blood Count 9.4 Red Blood Count 2.66 L Hemoglobin 7.9 L Hematocrit 25.8 L Mean Corpuscular Volume 97.0 Mean Corpuscular Hemoglobin 29.7 Mean Corpuscular Hemoglobin Concent 30.6 L Red Cell Distribution Width 14.6 H Platelet Count 187 Mean Platelet Volume 11.3 H Neutrophils % 81.9 H Lymphocytes % 8.5 L Monocytes % 7.5 Eosinophils % 1.5 Basophils % 0.1 Nucleated Red Blood Cells % 0.0 Neutrophils # 7.7 H Lymphocytes # 0.8 Monocytes # 0.7 Eosinophils # 0.1 Basophils # 0.0 Nucleated Red Blood Cells # 0.0 Sodium Level 144 Potassium Level 4.4 Chloride Level 108 Carbon Dioxide Level 29 Anion Gap 11 Blood Urea Nitrogen 59 H Creatinine 2.08 H Glucose Level 85 Calcium Level 8.6 Magnesium Level 2.1 Bedside Glucose 91 Medications Current Medications Ondansetron HCl (Zofran Inj) 4 mg Q6H PRN IV NAUSEA AND/OR VOMITING Last administered on 06/27/17 21:40; Admin Dose 4 MG; Start 06/13/17 at 15:30 Acetaminophen (Tylenol Tab) 650 mg Q6H PRN PO PAIN LEVEL 1-3 OR FEVER Last administered on 06/24/17 16:33; Admin Dose 650 MG; Start 06/13/17 at 15:30 Docusate Sodium (Colace) 100 mg Q12H PRN PO CONSTIPATION; Start 06/13/17 at 15 :30 Magnesium Hydroxide (Milk Of Mag) 30 ml DAILY PRN PO CONSTIPATION Last administered on 07/02/17 08:51; Admin Dose 30 ML; Start 06/13/17 at 15:30 Hydralazine HCl (Apresoline) 10 mg Q6H PRN IV ELEVATED BLOOD PRESSURE Last administered on 06/25/17 08:43; Admin Dose 10 MG; Start 06/13/17 at 15:30 Nitroglycerin (Nitroglycerin (Sl Tab) 0.4 Mg) 1 tab Q5M PRN SL ANGINA; Start 06/13/17 at 15:30 Aspirin (Aspirin) 325 mg DAILY PO Last administered on 07/03/17 09:06; Admin Dose 325 MG; Start 06/14/17 at 09:00 Atorvastatin Calcium (Lipitor) 10 mg HS PO Last administered on 06/16/17 21: 47; Admin Dose 10 MG; Start 06/13/17 at 21:00; Status Future Hold Levothyroxine Sodium (Synthroid) 100 mcg DAILY PO Last administered on 09:06; Admin Dose 100 MCG; Start 06/14/17 at 09:00 Montelukast Sodium (Singulair) 10 mg QHS PO Last administered on 07/02/17 20: 12; Admin Dose 10 MG; Start 06/13/17 at 21:00 Insulin Glargine (Lantus) 10 unit DAILY@20 SC ; Start 06/14/17 at 20:00; Status Future Hold Diagnostic Test (Pha) (Accu-Chek) 1 02 XX Last administered on 06/24/17 02 :03; Admin Dose 1 EA; Start 06/15/17 at 02:00 Miscellaneous Information 1 ea NOTE XX ; Start 06/14/17 at 06:00 Glucose (Glutose) 15 gm Q15M PRN PO DECREASED GLUCOSE; Start 06/14/17 at 06:00 Glucose (Glutose) 22.5 gm Q15M PRN PO DECREASED GLUCOSE; Start 06/14/17 at 06: 00 Dextrose (D50w Syringe) 25 ml Q15M PRN IV DECREASED GLUCOSE Last administered on 06/17/17 04:41; Admin Dose 25 ML; Start 06/14/17 at 06:00 Dextrose (D50w Syringe) 50 ml Q15M PRN IV DECREASED GLUCOSE; Start 06/14/17 at 06:00 Glucagon (Glucagen) 1 mg Q15M PRN IM DECREASED GLUCOSE; Start 06/14/17 at 06: 00 Glucose (Glutose) 15 gm Q15M PRN BUCCAL DECREASED GLUCOSE; Start 06/14/17 at 06:00 Enoxaparin Sodium (Lovenox) 60 mg DAILY SC Last administered on 07/03/17 09: 20; Admin Dose 60 MG; Start 06/17/17 at 09:00 IV Flush (NS 10 ml) 10 ml PRN PRN IV IV PROTOCOL; Start 06/16/17 at 14:00 Haloperidol (Haldol) 1 mg Q12 PRN IV agitation Last administered on 06/16/17 21:56; Admin Dose 1 MG; Start 06/16/17 at 20:30 Metoprolol Tartrate (Lopressor) 50 mg BID PO Last administered on 06/23/17 20 :02; Admin Dose 50 MG; Start 06/19/17 at 21:00; Status Future hold Diltiazem HCl (Cardizem) 60 mg Q8 GTB Last administered on 07/03/17 05:45; Admin Dose 60 MG; Start 06/23/17 at 14:00; Status Future hold Furosemide (Lasix) 20 mg DAILY IV Last administered on 07/03/17 09:07; Admin Dose 20 MG; Start 06/30/17 at 13:30 Hydralazine HCl (Apresoline) 25 mg Q8 PO Last administered on 11/30/17at 05:46 ; Admin Dose 25 MG; Start 06/30/17 at 14:00 Carvedilol (Coreg) 6.25 mg BID PO Last administered on 07/03/17 09:07; Admin Dose 6.25 MG; Start 07/02/17 at 21:00 Pantoprazole (Protonix Tab) 40 mg BID@06,18 PO Last administered on 07/03/17 05:46; Admin Dose 40 MG; Start 07/02/17 at 18:00 Assessment/Plan Chief Complaint/Hosp Course IMPRESSION: 1. Acute hypercapnic respiratory failure, placed back on BiPAP this morning. Chest x-ray shows increasing CHF 2. History of hypertension. 3. Atrial fibrillation with rapid ventricular rate. Currently rate controlled 4. Diabetes mellitus. 5. Status post shock. 6. Renal insufficiency. Plan 1. Continue BiPAP at night. As needed. 2. Rate control per cardiology. 3. Avoid sedation. 4. Deep venous thrombosis and gastrointestinal prophylaxis. 5. Aspiration precautions. 6. Consider increasing diuretics. Problems: YAZMIN VARGAS MD, [facility] Jul 03, 2017 11:05
--- NOTE | 2017-07-03 12:20 | PN ---
DATE: 07/03/2017 SUBJECTIVE: The patient is feeling better. Patient is without complaint. OBJECTIVE: VITAL SIGNS: Temperature 98.4, pulse 70, respirations 19, blood pressure 136/64, oxygen saturation 99% on 2 liter nasal cannula. IN'S AND OUT'S: The patient had 1100 in, 1900 out with a negative balance of 800 mL. GENERAL: Well-developed, well-nourished female in no acute distress, lying in bed. CHEST: Decreased breath sounds bilateral bases, otherwise clear. HEART: Irregular. ABDOMEN: Soft, nontender. Moderate obesity. EXTREMITIES: No cyanosis, clubbing. There is 1+ to 2+ bilateral lower extremity edema and 1+ left upper extremity and trace on the right. NEUROLOGIC: Nonfocal. LABORATORY DATA: Pending at the time of this dictation, except for occult blood negative x1 in the stool. ASSESSMENT AND PLAN 1. Acute respiratory failure with hypercapnia. The patient remains improved. The patient is meseret ating overnight BiPAP with no need for more during the daytime and no need for blood gas analysis at this time as patient is mentating well without somnolence. 2. Atrial fibrillation, remains controlled. We will continue with current medications. 3. Coronary artery disease/hypertension/acute congestive heart failure, improved. Continue with La six and blood pressure medications. 4. Acute on chronic renal insufficiency, improved. We will continue to monitor. 5. Diabetes, stable. Continue with medications and diet. 6. Hypothyroidism, stable. Continue with medications. 7. Anemia, remains stable and no need for transfusion. We will continue to monitor. Dictated By: MORGAN SNOW MD SR/NTS Conf#: [id number] DID#: [id number] CC: SARAH VINCENT MD;*EndCC*
--- NOTE | 2017-07-03 18:34 | CONS ---
Date/Time of Note Date/Time of Note DATE: 07/03/17 TIME: 18:28 Assessment/Plan Assessment/Plan Chief Complaint/Hosp Course IMP: 1.Hypotension-improved off of pressors/NL EF by echo this admit-now HTN with some lability 2. AF with RVR-yesterday apparently had pause 3 seconds and all estrella agents were held- now on coreg with rates and no sig eren 3. Renal failure-ongoing 4. Hypercarbic resp failure s/p extubation-improved off BIPAP in ICU 5. Hypothyroid 6. PLeural effusion-s/p thoracentesis Recc: -Tele -serial ecg's -Continue lasix diuresis and will give extra dose today -Continue lovenox QD/asa -Follow HR/BP/volume status closely -Continue BB/CCB and follow HR clsoely -Continue hydralazine but discuss compliance with patient as refused dose Problems: Consultation Date/Type/Reason Admit Date/Time Jun 14, 2017 at 09:27 Initial Consult Date 06/15/17 Type of Consultation: cardiology Reason for Consultation AF Referring Provider: SARAH VINCENT Exam/Review of Systems Vital Signs Vitals Vital Signs Date Time Temp Pulse Resp B/P Pulse Ox O2 Delivery O2 Flow Rate FiO2 07/03/17 16:00 56 07/03/17 15:05 98.2 18 110/59 99 07/03/17 09:30 2.0 07/03/17 09:30 30 07/03/17 08:00 Nasal Cannula Intake and Output 07/02/17 07/02/17 07/03/17 15:00 23:00 07:00 Intake Total 700 ml 400 ml Output Total 1150 ml 750 ml Balance -450 ml -350 ml Exam Review of Systems: CONSTITUTIONAL: No fevers, chills. PULMONARY: No sob CARDIOVASCULAR: No chest pain/palpitations GASTROINTESTINAL: No nausea/vomiting. GENITOURINARY: No hematuria/dysuria. MUSCULOSKELETAL: No myagias/arthalgias. PSYCHIATRIC: The patient denies depression. NEUROLOGIC: No weakness Constitutional: alert Psych: no complaints Head: normocephalic ENMT: mucosa pink and moist Neck: jvd (9 cm water), supple Respiratory: diminished breath sounds (at bases/B) Cardiovascular: regular rate and rhythm Gastrointestinal: soft Musculoskeletal: muscle tone (normal) Extremities: edema (none) Neurological: other (No focal deficits) Results Result Diagram: 07/03/17 0831 07/03/17 0831 Results 24 hrs Laboratory Tests Test 07/02/17 20:11 07/03/17 05:30 07/03/17 08:31 07/03/17 08:35 Bedside Glucose 94 91 Stool Occult Blood POSITIVE White Blood Count 9.4 Red Blood Count 2.66 L Hemoglobin 7.9 L Hematocrit 25.8 L Mean Corpuscular Volume 97.0 Mean Corpuscular Hemoglobin 29.7 Mean Corpuscular Hemoglobin Concent 30.6 L Red Cell Distribution Width 14.6 H Platelet Count 187 Mean Platelet Volume 11.3 H Neutrophils % 81.9 H Lymphocytes % 8.5 L Monocytes % 7.5 Eosinophils % 1.5 Basophils % 0.1 Nucleated Red Blood Cells % 0.0 Neutrophils # 7.7 H Lymphocytes # 0.8 Monocytes # 0.7 Eosinophils # 0.1 Basophils # 0.0 Nucleated Red Blood Cells # 0.0 Sodium Level 144 Potassium Level 4.4 Chloride Level 108 Carbon Dioxide Level 29 Anion Gap 11 Blood Urea Nitrogen 59 H Creatinine 2.08 H Glucose Level 85 Calcium Level 8.6 Magnesium Level 2.1 Test 07/03/17 12:08 07/03/17 17:23 Bedside Glucose 122 98 Medications Medications Current Medications Ondansetron HCl (Zofran Inj) 4 mg Q6H PRN IV NAUSEA AND/OR VOMITING Last administered on 06/27/17 21:40; Admin Dose 4 MG; Start 06/13/17 at 15:30 Acetaminophen (Tylenol Tab) 650 mg Q6H PRN PO PAIN LEVEL 1-3 OR FEVER Last administered on 06/24/17 16:33; Admin Dose 650 MG; Start 06/13/17 at 15:30 Docusate Sodium (Colace) 100 mg Q12H PRN PO CONSTIPATION; Start 06/13/17 at 15 :30 Magnesium Hydroxide (Milk Of Mag) 30 ml DAILY PRN PO CONSTIPATION Last administered on 07/02/17 08:51; Admin Dose 30 ML; Start 06/13/17 at 15:30 Hydralazine HCl (Apresoline) 10 mg Q6H PRN IV ELEVATED BLOOD PRESSURE Last administered on 06/25/17 08:43; Admin Dose 10 MG; Start 06/13/17 at 15:30 Nitroglycerin (Nitroglycerin (Sl Tab) 0.4 Mg) 1 tab Q5M PRN SL ANGINA; Start 06/13/17 at 15:30 Aspirin (Aspirin) 325 mg DAILY PO Last administered on 07/03/17 09:06; Admin Dose 325 MG; Start 06/14/17 at 09:00 Atorvastatin Calcium (Lipitor) 10 mg HS PO Last administered on 06/16/17 21: 47; Admin Dose 10 MG; Start 06/13/17 at 21:00; Status Future Hold Levothyroxine Sodium (Synthroid) 100 mcg DAILY PO Last administered on 09:06; Admin Dose 100 MCG; Start 06/14/17 at 09:00 Montelukast Sodium (Singulair) 10 mg QHS PO Last administered on 07/02/17 20: 12; Admin Dose 10 MG; Start 06/13/17 at 21:00 Insulin Glargine (Lantus) 10 unit DAILY@20 SC ; Start 06/14/17 at 20:00; Status Future Hold Diagnostic Test (Pha) (Accu-Chek) 1 ea 02 XX Last administered on 06/24/17 02 :03; Admin Dose 1 EA; Start 06/15/17 at 02:00 Miscellaneous Information 1 ea NOTE XX ; Start 06/14/17 at 06:00 Glucose (Glutose) 15 gm Q15M PRN PO DECREASED GLUCOSE; Start 06/14/17 at 06:00 Glucose (Glutose) 22.5 gm Q15M PRN PO DECREASED GLUCOSE; Start 06/14/17 at 06: 00 Dextrose (D50w Syringe) 25 ml Q15M PRN IV DECREASED GLUCOSE Last administered on 06/17/17 04:41; Admin Dose 25 ML; Start 06/14/17 at 06:00 Dextrose (D50w Syringe) 50 ml Q15M PRN IV DECREASED GLUCOSE; Start 06/14/17 at 06:00 Glucagon (Glucagen) 1 mg Q15M PRN IM DECREASED GLUCOSE; Start 06/14/17 at 06: 00 Glucose (Glutose) 15 gm Q15M PRN BUCCAL DECREASED GLUCOSE; Start 06/14/17 at 06:00 Enoxaparin Sodium (Lovenox) 60 mg DAILY SC Last administered on 07/03/17 09: 20; Admin Dose 60 MG; Start 06/17/17 at 09:00 IV Flush (NS 10 ml) 10 ml PRN PRN IV IV PROTOCOL; Start 06/16/17 at 14:00 Haloperidol (Haldol) 1 mg Q12 PRN IV agitation Last administered on 06/16/17 21:56; Admin Dose 1 MG; Start 06/16/17 at 20:30 Metoprolol Tartrate (Lopressor) 50 mg BID PO Last administered on 06/23/17 20 :02; Admin Dose 50 MG; Start 06/19/17 at 21:00; Status Future hold Diltiazem HCl (Cardizem) 60 mg Q8 GTB Last administered on 07/03/17 13:26; Admin Dose 60 MG; Start 06/23/17 at 14:00; Status Future hold Furosemide (Lasix) 20 mg DAILY IV Last administered on 07/03/17 09:07; Admin Dose 20 MG; Start 06/30/17 at 13:30 Hydralazine HCl (Apresoline) 25 mg Q8 PO Last administered on 07/03/17 13:25 ; Admin Dose 25 MG; Start 06/30/17 at 14:00 Carvedilol (Coreg) 6.25 mg BID PO Last administered on 07/03/17 09:07; Admin Dose 6.25 MG; Start 07/02/17 at 21:00 Pantoprazole (Protonix Tab) 40 mg BID@06,18 PO Last administered on 07/03/17 17:25; Admin Dose 40 MG; Start 07/02/17 at 18:00 WEN GOFF Jul 03, 2017 18:34
[2017-07-03] MEDS: MONTELUKAST 10 MG TAB PO SCH (21:29)
[2017-07-04] VITALS (18 sets, daily range): BP systolic 104–167; BP diastolic 56–79; PULSE 52–88; RESP 18–20
[2017-07-04] MEDS: PANTOPRAZOLE (EC) 40 MG TAB PO SCH ×2 (05:30→17:38)
[2017-07-04] MEDS: DILTIAZEM 60 MG TAB GTB SCH ×3 (05:30→21:50)
[2017-07-04 06:10] LABS: EOSINOPHILS # 0.1 10^3/ul (0.0-0.5); EOSINOPHILS % 2.1 % (0.0-7.0); HEMATOCRIT 24.1 % (37.0-47.0); HEMOGLOBIN 7.5 g/dl (12.0-16.0); LYMPHOCYTES # 0.7 10^3/ul (0.8-2.9); LYMPHOCYTES % 11.2 % (15.0-51.0); MEAN CORPUSCULAR HEMOGLOBIN 29.9 pg (29.0-33.0); MEAN CORPUSCULAR HGB CONC 31.1 g/dl (32.0-37.0); MONOCYTE # 0.5 10^3/ul (0.3-0.9); MONOCYTES % 8.3 % (0.0-11.0); NEUTROPHIL # 4.8 10^3/ul (1.6-7.5); NEUTROPHILS % 78.1 % (39.0-77.0); PLATELET COUNT 164 10^3/UL (140-415); RED BLOOD COUNT 2.51 10^6/ul (4.20-5.40); RED CELL DISTRIBUTION WIDTH 14.4 % (11.5-14.5); WHITE BLOOD COUNT 6.2 10^3/ul (4.8-10.8)
[2017-07-04 07:08] LABS: CALCIUM 8.4 mg/dl (8.4-10.2); CREATININE 2.09 mg/dl (0.44-1.00); MAGNESIUM 1.9 mg/dl (1.7-2.5); POTASSIUM 3.8 mmol/L (3.5-5.1)
[2017-07-04] MEDS: INSULIN ASPART [NOVOLOG] 3 ML PEN SC SCH ×4 (07:25→21:00)
[2017-07-04 07:44] LABS: AADO2 Arterial 54.3 mmHg (7.0-24.0); Allen Test ACCEPTAB; Arterial Base Excess 0.7 mmol/L (-3.0-3); Arterial COHb 0.3 % (0.0-3.0); Arterial HCO3 25.9 mmol/L (22.0-26.0); Arterial MetHb 0.2 % (0.0-1.5); Arterial Total Hemglobin 8.4 g/dl (12.0-18.0); Blood Gas IEPAP 22/8; MODE MASK - BIPAP
[2017-07-04] MEDS: FUROSEMIDE 20 MG INJ IV SCH (08:14)
[2017-07-04] MEDS: ASPIRIN 325 MG TAB PO SCH (08:14)
[2017-07-04] MEDS: LEVOTHYROXINE 100 MCG TAB PO SCH (08:14)
[2017-07-04] MEDS: BALSAM PERU/CASTOR OIL 60 GM TUBE TOP SCH ×2 (08:16→21:00)
[2017-07-04] MEDS: ENOXAPARIN 60 MG/0.6 ML SYG SC SCH (08:29)
--- NOTE | 2017-07-04 08:50 | RADRPT ---
PROCEDURE: XR Chest. CLINICAL INDICATION: pna chf TECHNIQUE: Single frontal view of the chest was obtained COMPARISON: CR CHEST 11/18/2015; CR CHEST 07/28/2015; CR CHEST 12/19/2014 FINDINGS: A left upper extremity PICC line tip overlies the mid superior vena cava. Low lung volumes with lower lobe compressive changes are present. The cardiomediastinal silhouette i s mildly enlarged. Thoracic aortic catheters right calcification noted. Increased opacification of t he bilateral, left greater than right lung bases is secondary to increased pleural effusions with at electasis and/or infiltrates. No evidence of a pneumothorax. IMPRESSION: 1. Increased opacification of the bilateral, left greater than right lung bases by combination of i ncreased pleural effusions with atelectasis and/or infiltrates. 2. Cardiomegaly 3. Thoracic aortic atherosclerotic calcifications. RPTAT: [facility] Physician Sudarshan Date Time Electronically viewed and signed by Rosanna Dove Physician on 07/04/2017 08:50 RR/
--- NOTE | 2017-07-04 11:22 | CONS ---
Date/Time of Note Date/Time of Note DATE: 07/04/17 TIME: 11:20 Assessment/Plan Assessment/Plan Additional Assessment/Plan Assessment and recommendations; 1. Patient admitted with hypoxemic and hypercapnic respiratory failure doing well now. 2. Anemia and chronic renal insufficiency. Continue current supportive care. Patient likely will need to have home BiPAP. Consultation Date/Type/Reason Admit Date/Time Jun 14, 2017 at 09:27 Type of Consultation: Pulmonary Referring Provider: SARAH VINCENT 24 HR Interval Summary Free Text/Dictation Patient's condition has improved. Remains awake and alert. Denies any further shortness of breath. General exam; elderly woman, awake, currently in no distress. Exam/Review of Systems Vital Signs Vitals Vital Signs Date Time Temp Pulse Resp B/P Pulse Ox O2 Delivery O2 Flow Rate FiO2 07/04/17 11:14 98.0 77 18 142/65 100 07/04/17 08:00 30 07/03/17 09:30 2.0 07/03/17 08:00 Nasal Cannula Intake and Output 07/03/17 07/03/17 07/04/17 15:00 23:00 07:00 Intake Total 400 ml 250 ml Output Total 800 ml 750 ml Balance -400 ml -500 ml Exam HEENT exam; supple neck, no JVD. No lymphadenopathy. Midline trachea. No thyromegaly. Patient has bilateral intraocular lens implants. Chest exam; diminished but clear breath sounds. S1-S2 audible, no murmurs. Regular rhythm. Abdomen exam; soft, nontender. No organomegaly. Bowel sounds audible. Extremity exam; no edema. Vitiligo is present in upper extremities. 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 Results Result Diagram: 07/04/17 0545 07/04/17 0545 Results 24 hrs Laboratory Tests Test 07/03/17 12:08 07/03/17 17:23 07/03/17 21:27 07/04/17 05:45 Bedside Glucose 122 98 106 White Blood Count 6.2 # Red Blood Count 2.51 L Hemoglobin 7.5 L Hematocrit 24.1 L Mean Corpuscular Volume 96.0 Mean Corpuscular Hemoglobin 29.9 Mean Corpuscular Hemoglobin Concent 31.1 L Red Cell Distribution Width 14.4 Platelet Count 164 Mean Platelet Volume 11.0 H Neutrophils % 78.1 H Lymphocytes % 11.2 L Monocytes % 8.3 Eosinophils % 2.1 Basophils % 0.0 Nucleated Red Blood Cells % 0.0 Neutrophils # 4.8 Lymphocytes # 0.7 L Monocytes # 0.5 Eosinophils # 0.1 Basophils # 0.0 Nucleated Red Blood Cells # 0.0 Sodium Level 142 Potassium Level 3.8 Chloride Level 105 Carbon Dioxide Level 30 Anion Gap 11 Blood Urea Nitrogen 57 H Creatinine 2.09 H Glucose Level 80 Calcium Level 8.4 Magnesium Level 1.9 Test 07/04/17 07:00 07/04/17 08:11 Blood Gas Specimen Source Blood arterial Arterial Blood Date Drawn 07/04/2017 7:20:59 AM Arterial Blood pH (Temp corrected) 7.384 Arterial Blood pCO2 (Temp correct) 44.3 Arterial Blood pO2 (Temp corrected) 107.6 H Arterial Blood HCO3 25.9 Arterial Blood Base Excess 0.7 Arterial Blood Oxygen Saturation 97.5 [place] Test ACCEPTAB Arterial Blood Gas Puncture Site Right Radial Arterial Blood Carboxyhemoglobin 0.3 Arterial Blood Methemoglobin 0.2 Blood Gas A-a O2 Differential 54.3 H Oxyhemoglobin Percent 97.0 Total Hemoglobin 8.4 L Blood Gas Temperature 37.0 Blood Gas Respiration Rate 22.0 Blood Gas Actual Respiration Rate 22 Blood Gas Modality MASK - BIPAP FiO2 30.0 Blood Gas IPAP/EPAP Ratio 22/8 Blood Gas Notified Whom JLD Blood Gas Notified Time 07/04/2017 7:44:35 AM Bedside Glucose 87 Medications Medications Current Medications Ondansetron HCl (Zofran Inj) 4 mg Q6H PRN IV NAUSEA AND/OR VOMITING Last administered on 06/27/17 21:40; Admin Dose 4 MG; Start 06/13/17 at 15:30 Acetaminophen (Tylenol Tab) 650 mg Q6H PRN PO PAIN LEVEL 1-3 OR FEVER Last administered on 06/24/17 16:33; Admin Dose 650 MG; Start 06/13/17 at 15:30 Docusate Sodium (Colace) 100 mg Q12H PRN PO CONSTIPATION; Start 06/13/17 at 15 :30 Magnesium Hydroxide (Milk Of Mag) 30 ml DAILY PRN PO CONSTIPATION Last administered on 07/02/17 08:51; Admin Dose 30 ML; Start 06/13/17 at 15:30 Hydralazine HCl (Apresoline) 10 mg Q6H PRN IV ELEVATED BLOOD PRESSURE Last administered on 06/25/17 08:43; Admin Dose 10 MG; Start 06/13/17 at 15:30 Nitroglycerin (Nitroglycerin (Sl Tab) 0.4 Mg) 1 tab Q5M PRN SL ANGINA; Start 06/13/17 at 15:30 Aspirin (Aspirin) 325 mg DAILY PO Last administered on 07/04/17 08:14; Admin Dose 325 MG; Start 06/14/17 at 09:00 Atorvastatin Calcium (Lipitor) 10 mg HS PO Last administered on 06/16/17 21: 47; Admin Dose 10 MG; Start 06/13/17 at 21:00; Status Future Hold Levothyroxine Sodium (Synthroid) 100 mcg DAILY PO Last administered on 08:14; Admin Dose 100 MCG; Start 06/14/17 at 09:00 Montelukast Sodium (Singulair) 10 mg QHS PO Last administered on 07/03/17 21: 29; Admin Dose 10 MG; Start 06/13/17 at 21:00 Insulin Glargine (Lantus) 10 unit DAILY@20 SC ; Start 06/14/17 at 20:00; Status Future Hold Diagnostic Test (Pha) (Accu-Chek) 1 ea 02 XX Last administered on 06/24/17 02 :03; Admin Dose 1 EA; Start 06/15/17 at 02:00 Miscellaneous Information 1 ea NOTE XX ; Start 06/14/17 at 06:00 Glucose (Glutose) 15 gm Q15M PRN PO DECREASED GLUCOSE; Start 06/14/17 at 06:00 Glucose (Glutose) 22.5 gm Q15M PRN PO DECREASED GLUCOSE; Start 06/14/17 at 06: 00 Dextrose (D50w Syringe) 25 ml Q15M PRN IV DECREASED GLUCOSE Last administered on 06/17/17 04:41; Admin Dose 25 ML; Start 06/14/17 at 06:00 Dextrose (D50w Syringe) 50 ml Q15M PRN IV DECREASED GLUCOSE; Start 06/14/17 at 06:00 Glucagon (Glucagen) 1 mg Q15M PRN IM DECREASED GLUCOSE; Start 06/14/17 at 06: 00 Glucose (Glutose) 15 gm Q15M PRN BUCCAL DECREASED GLUCOSE; Start 06/14/17 at 06:00 Enoxaparin Sodium (Lovenox) 60 mg DAILY SC Last administered on 07/04/17 08:29 ; Admin Dose 60 MG; Start 06/17/17 at 09:00 IV Flush (NS 10 ml) 10 ml PRN PRN IV IV PROTOCOL; Start 06/16/17 at 14:00 Haloperidol (Haldol) 1 mg Q12 PRN IV agitation Last administered on 06/16/17 21:56; Admin Dose 1 MG; Start 06/16/17 at 20:30 Metoprolol Tartrate (Lopressor) 50 mg BID PO Last administered on 06/23/17 20 :02; Admin Dose 50 MG; Start 06/19/17 at 21:00; Status Future hold Diltiazem HCl (Cardizem) 60 mg Q8 GTB Last administered on 07/04/17 05:30; Admin Dose 60 MG; Start 06/23/17 at 14:00; Status Future hold Furosemide (Lasix) 20 mg DAILY IV Last administered on 07/04/17 08:14; Admin Dose 20 MG; Start 06/30/17 at 13:30 Hydralazine HCl (Apresoline) 25 mg Q8 PO Last administered on 07/04/17 05:30; Admin Dose 25 MG; Start 06/30/17 at 14:00 Carvedilol (Coreg) 6.25 mg BID PO Last administered on 07/03/17 21:29; Admin Dose 6.25 MG; Start 07/02/17 at 21:00 Pantoprazole (Protonix Tab) 40 mg BID@,18 PO Last administered on 07/04/17 05:30; Admin Dose 40 MG; Start 07/02/17 at 18:00 EN BURNETTE Jul 04, 2017 11:22
--- NOTE | 2017-07-04 11:38 | PN ---
DATE: 07/04/2017 SUBJECTIVE: The patient is feeling well. No complaints. OBJECTIVE: VITAL SIGNS: Temperature 97.4, pulse 54, respirations 18, blood pressure 131/70, oxygen saturation 98% on FIO2 30%. INTAKES AND OUTPUTS: 650 in and 50 out, negative balance 900 mL. CHEST: Decreased breath sounds bilaterally without rales or rhonchi. HEART: Bradycardic, regular. ABDOMEN: Soft, nontender, edematous. NEUROLOGIC: Nonfocal. EXTREMITIES: No cyanosis, clubbing. There is 1+ left greater than right upper extremity edema and 1 to 2+ bilateral lower extremity edema. LABORATORY DATA: Arterial blood gas shows a pH of 7.384, pCO2 of 44.3, pO2 of 107.6, oxygen saturat ion 97.5. Sodium 142, potassium 3.8, chloride 105, bicarbonate 30, BUN of 57, creatinine 2.09, magn esium 1.9, calcium 8.4. Hemoglobin of 7.5, hematocrit 24.1, white blood cell count 6.2, platelet 16 4. Stool is occult positive. Chest x-ray done 07/03/2017 shows mild pulmonary vascular congestion with small bilateral pleural effusions with no significant interval change. ASSESSMENT AND PLAN: 1. Acute respiratory failure with hypercapnia. The patient remains stable. The patient had some s omnolence yesterday and was placed on BiPAP for about an hour yesterday. Blood gas morning is good with a pCO2 of 44. We will continue with nighttime BiPAP and continue to work with getting patient into [facility]. 2. Anemia is worse. The patient's family wants to wait on transfusion and patient's family wants t o be able to donate blood if she does need transfusions, so will type and screen the patient today a nd repeat CBC in the morning. If still low, will transfuse. 3. Atrial fibrillation remains controlled. We will continue with current medications and adjust as needed. 4. 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 We will continue with Lasix and control blood pressure. 5. Acute on chronic renal insufficiency, improved. We will continue to monitor. 6. Diabetes, stable. Continue with medications. 7. Hypothyroidism, stable. Continue with medications. Dictated By: MORGAN SNOW MD SR/TAZ Conf#: [id number] [facility]#: [id number] CC: SARAH VINCENT MD;*End*
--- NOTE | 2017-07-04 13:01 | CONS ---
Date/Time of Note Date/Time of Note DATE: 07/04/17 TIME: 12:58 Assessment/Plan Assessment/Plan Chief Complaint/Hosp Course IMP: 1.Hypotension-improved off of pressors/NL EF by echo this admit-now HTN with some lability but overall reasonable control 2. AF with RVR-yesterday apparently had pause 3 seconds and all estrella agents were held- now on coreg with good heart rates and no sig eren 3. Renal failure-ongoing 4. Hypercarbic resp failure s/p extubation-improved off BIPAP in ICU 5. Hypothyroid 6. PLeural effusion-s/p thoracentesis 7. Anemia-slowly worsening Recc: -Tele -serial ecg's -Continue lasix diuresis s/p extra dose overnight -Continue lovenox QD as tolerated given anemia -Hold asa given anemia -Follow HR/BP/volume status closely -Continue BB/CCB and follow HR clsoely -Continue hydralazine -Possible transfusion Problems: Consultation Date/Type/Reason Admit Date/Time Jun 14, 2017 at 09:27 Initial Consult Date 06/15/17 Type of Consultation: cardiology Reason for Consultation chest pain Referring Provider: SARAH VINCENT Exam/Review of Systems Vital Signs Vitals Vital Signs Date Time Temp Pulse Resp B/P Pulse Ox O2 Delivery O2 Flow Rate FiO2 07/04/17 12:18 74 07/04/17 11:14 98.0 18 142/65 100 07/04/17 08:00 30 07/03/17 09:30 2.0 07/03/17 08:00 Nasal Cannula Intake and Output 07/03/17 07/03/17 07/04/17 15:00 23:00 07:00 Intake Total 400 ml 250 ml Output Total 800 ml 750 ml Balance -400 ml -500 ml Exam Review of Systems: CONSTITUTIONAL: No fevers, chills. PULMONARY: No sob CARDIOVASCULAR: No chest pain/palpitations GASTROINTESTINAL: No nausea/vomiting. GENITOURINARY: No hematuria/dysuria. MUSCULOSKELETAL: No myagias/arthalgias. PSYCHIATRIC: The patient denies depression. NEUROLOGIC: lethargic Constitutional: alert Psych: no complaints Head: normocephalic ENMT: mucosa pink and moist Neck: jvd (9 cm water), supple Respiratory: diminished breath sounds (at bases/B) Cardiovascular: regular rate and rhythm Gastrointestinal: non-tender, soft Musculoskeletal: muscle tone (normal) Extremities: edema (none) Neurological: lethargic, other (No focal deficits) Results Result Diagram: 07/04/17 0545 07/04/17 0545 Results 24 hrs Laboratory Tests Test 07/03/17 17:23 07/03/17 21:27 07/04/17 05:45 07/04/17 07:00 Bedside Glucose 98 106 White Blood Count 6.2 # Red Blood Count 2.51 L Hemoglobin 7.5 L Hematocrit 24.1 L Mean Corpuscular Volume 96.0 Mean Corpuscular Hemoglobin 29.9 Mean Corpuscular Hemoglobin Concent 31.1 L Red Cell Distribution Width 14.4 Platelet Count 164 Mean Platelet Volume 11.0 H Neutrophils % 78.1 H Lymphocytes % 11.2 L Monocytes % 8.3 Eosinophils % 2.1 Basophils % 0.0 Nucleated Red Blood Cells % 0.0 Neutrophils # 4.8 Lymphocytes # 0.7 L Monocytes # 0.5 Eosinophils # 0.1 Basophils # 0.0 Nucleated Red Blood Cells # 0.0 Sodium Level 142 Potassium Level 3.8 Chloride Level 105 Carbon Dioxide Level 30 Anion Gap 11 Blood Urea Nitrogen 57 H Creatinine 2.09 H Glucose Level 80 Calcium Level 8.4 Magnesium Level 1.9 Blood Gas Specimen Source Blood arterial Arterial Blood Date Drawn 07/04/2017 7:20:59 AM Arterial Blood pH (Temp corrected) 7.384 Arterial Blood pCO2 (Temp correct) 44.3 Arterial Blood pO2 (Temp corrected) 107.6 H Arterial Blood HCO3 25.9 Arterial Blood Base Excess 0.7 Arterial Blood Oxygen Saturation 97.5 Carl[place] Test ACCEPTAB Arterial Blood Gas Puncture Site Right Radial Arterial Blood Carboxyhemoglobin 0.3 Arterial Blood Methemoglobin 0.2 Blood Gas A-a O2 Differential 54.3 H Oxyhemoglobin Percent 97.0 Total Hemoglobin 8.4 L Blood Gas Temperature 37.0 Blood Gas Respiration Rate 22.0 Blood Gas Actual Respiration Rate 22 Blood Gas Modality MASK - BIPAP FiO2 30.0 Blood Gas IPAP/EPAP Ratio 22/8 Blood Gas Notified Whom JLD Blood Gas Notified Time 07/04/2017 7:44:35 AM Test 07/04/17 08:11 07/04/17 12:12 Bedside Glucose 87 103 Medications Medications Current Medications Ondansetron HCl (Zofran Inj) 4 mg Q6H PRN IV NAUSEA AND/OR VOMITING Last administered on 06/27/17 21:40; Admin Dose 4 MG; Start 06/13/17 at 15:30 Acetaminophen (Tylenol Tab) 650 mg Q6H PRN PO PAIN LEVEL 1-3 OR FEVER Last administered on 06/24/17 16:33; Admin Dose 650 MG; Start 06/13/17 at 15:30 Docusate Sodium (Colace) 100 mg Q12H PRN PO CONSTIPATION; Start 06/13/17 at 15 :30 Magnesium Hydroxide (Milk Of Mag) 30 ml DAILY PRN PO CONSTIPATION Last administered on 07/02/17 08:51; Admin Dose 30 ML; Start 06/13/17 at 15:30 Hydralazine HCl (Apresoline) 10 mg Q6H PRN IV ELEVATED BLOOD PRESSURE Last administered on 06/25/17 08:43; Admin Dose 10 MG; Start 06/13/17 at 15:30 Nitroglycerin (Nitroglycerin (Sl Tab) 0.4 Mg) 1 tab Q5M PRN SL ANGINA; Start 06/13/17 at 15:30 Aspirin (Aspirin) 325 mg DAILY PO Last administered on 07/04/17 08:14; Admin Dose 325 MG; Start 06/14/17 at 09:00 Atorvastatin Calcium (Lipitor) 10 mg HS PO Last administered on 06/16/17 21: 47; Admin Dose 10 MG; Start 06/13/17 at 21:00; Status Future Hold Levothyroxine Sodium (Synthroid) 100 mcg DAILY PO Last administered on 08:14; Admin Dose 100 MCG; Start 06/14/17 at 09:00 Montelukast Sodium (Singulair) 10 mg QHS PO Last administered on 07/03/17 21: 29; Admin Dose 10 MG; Start 06/13/17 at 21:00 Insulin Glargine (Lantus) 10 unit DAILY@20 SC ; Start 06/14/17 at 20:00; Status Future Hold Diagnostic Test (Pha) (Accu-Chek) 1 ea 02 XX Last administered on 06/24/17 02 :03; Admin Dose 1 EA; Start 06/15/17 at 02:00 Miscellaneous Information 1 ea NOTE XX ; Start 06/14/17 at 06:00 Glucose (Glutose) 15 gm Q15M PRN PO DECREASED GLUCOSE; Start 06/14/17 at 06:00 Glucose (Glutose) 22.5 gm Q15M PRN PO DECREASED GLUCOSE; Start 06/14/17 at 06: 00 Dextrose (D50w Syringe) 25 ml Q15M PRN IV DECREASED GLUCOSE Last administered on 06/17/17 04:41; Admin Dose 25 ML; Start 06/14/17 at 06:00 Dextrose (D50w Syringe) 50 ml Q15M PRN IV DECREASED GLUCOSE; Start 06/14/17 at 06:00 Glucagon (Glucagen) 1 mg Q15M PRN IM DECREASED GLUCOSE; Start 06/14/17 at 06: 00 Glucose (Glutose) 15 gm Q15M PRN BUCCAL DECREASED GLUCOSE; Start 06/14/17 at 06:00 Enoxaparin Sodium (Lovenox) 60 mg DAILY SC Last administered on 07/04/17 08:29 ; Admin Dose 60 MG; Start 06/17/17 at 09:00 IV Flush (NS 10 ml) 10 ml PRN PRN IV IV PROTOCOL; Start 06/16/17 at 14:00 Haloperidol (Haldol) 1 mg Q12 PRN IV agitation Last administered on 06/16/17 21:56; Admin Dose 1 MG; Start 06/16/17 at 20:30 Metoprolol Tartrate (Lopressor) 50 mg BID PO Last administered on 06/23/17 20 :02; Admin Dose 50 MG; Start 06/19/17 at 21:00; Status Future hold Diltiazem HCl (Cardizem) 60 mg Q8 GTB Last administered on 07/04/17 05:30; Admin Dose 60 MG; Start 06/23/17 at 14:00; Status Future hold Furosemide (Lasix) 20 mg DAILY IV Last administered on 07/04/17 08:14; Admin Dose 20 MG; Start 06/30/17 at 13:30 Hydralazine HCl (Apresoline) 25 mg Q8 PO Last administered on 07/04/17 05:30; Admin Dose 25 MG; Start 06/30/17 at 14:00 Carvedilol (Coreg) 6.25 mg BID PO Last administered on 07/03/17 21:29; Admin Dose 6.25 MG; Start 07/02/17 at 21:00 Pantoprazole (Protonix Tab) 40 mg BID@06,18 PO Last administered on 07/04/17t 05:30; Admin Dose 40 MG; Start 07/02/17 at 18:00 WEN GOFF Jul 04, 2017 13:01
[2017-07-04] MEDS: MONTELUKAST 10 MG TAB PO SCH (21:50)
[2017-07-05] VITALS (17 sets, daily range): BP systolic 115–146; BP diastolic 61–89; PULSE 50–74; RESP 16–22
[2017-07-05] MEDS: ACCU-CHEK XX SCH (02:00)
[2017-07-05] MEDS: PANTOPRAZOLE (EC) 40 MG TAB PO SCH ×2 (06:40→17:38)
[2017-07-05] MEDS: DILTIAZEM 60 MG TAB GTB SCH ×3 (06:41→21:53)
[2017-07-05 06:53] LABS: EOSINOPHILS # 0.2 10^3/ul (0.0-0.5); EOSINOPHILS % 2.9 % (0.0-7.0); HEMATOCRIT 24.2 % (37.0-47.0); HEMOGLOBIN 7.6 g/dl (12.0-16.0); LYMPHOCYTES # 0.8 10^3/ul (0.8-2.9); LYMPHOCYTES % 14.2 % (15.0-51.0); MEAN CORPUSCULAR HEMOGLOBIN 29.8 pg (29.0-33.0); MEAN CORPUSCULAR HGB CONC 31.4 g/dl (32.0-37.0); MEAN CORPUSCULAR VOLUME 94.9 fl (82.0-101.0); MEAN PLATELET VOLUME 10.9 fl (7.4-10.4); MONOCYTE # 0.5 10^3/ul (0.3-0.9); MONOCYTES % 9.3 % (0.0-11.0); NEUTROPHIL # 4.2 10^3/ul (1.6-7.5); NEUTROPHILS % 73.3 % (39.0-77.0); PLATELET COUNT 163 10^3/UL (140-415); RED BLOOD COUNT 2.55 10^6/ul (4.20-5.40); RED CELL DISTRIBUTION WIDTH 14.4 % (11.5-14.5); WHITE BLOOD COUNT 5.8 10^3/ul (4.8-10.8)
[2017-07-05 07:20] LABS: CALCIUM 8.4 mg/dl (8.4-10.2); CREATININE 1.92 mg/dl (0.44-1.00); MAGNESIUM 1.8 mg/dl (1.7-2.5); POTASSIUM 3.5 mmol/L (3.5-5.1)
[2017-07-05] MEDS: INSULIN ASPART [NOVOLOG] 3 ML PEN SC SCH ×4 (07:25→21:00)
[2017-07-05] MEDS: FUROSEMIDE 20 MG INJ IV SCH (09:01)
[2017-07-05] MEDS: LEVOTHYROXINE 100 MCG TAB PO SCH (09:01)
[2017-07-05] MEDS: ENOXAPARIN 60 MG/0.6 ML SYG SC SCH (09:05)
[2017-07-05] MEDS: BALSAM PERU/CASTOR OIL 60 GM TUBE TOP SCH ×2 (09:06→21:58)
--- NOTE | 2017-07-05 11:06 | PN ---
Date/Time of Note Date/Time of Note DATE: 07/05/17 TIME: 11:04 Assessment/Plan VTE Prophylaxis VTE Prophylaxis Intervention: other Lines/Catheters IV Catheter Type (from Nrs): PICC Line Urinary Cath still in place: Yes Reason Cath still needed: other (indicate) Assessment/Plan Assessment/Plan 1. Acute respiratory failure with hypercapnia. The patient remains stable. The patient had some somnolence yesterday and was placed on BiPAP for about an hour yesterday. Blood gas morning is good with a pCO2 of 44. We will continue with nighttime BiPAP and continue to work with getting patient into [facility]. 2. Anemia . The patient's family wants to wait on transfusion and patient's family wants to be able to donate blood if she does need transfusions, so will type and screen the patient today and repeat CBC in the morning. If still low, will transfuse. on 07/05 hgb same or slightly better from 7.5 to 7.6. unless family has blood available cont to watch. family at bedside says if family member transfusion is not available and is necessary then will transfuse. if hgb goes lower 7.5 then will transfuse. 3. Atrial fibrillation remains controlled. We will continue with current medications and adjust as needed. 4. Acute congestive heart failure combined/coronary artery disease/hypertension , improved. We will continue with Lasix and control blood pressure. 5. Acute on chronic renal insufficiency, improved. We will continue to monitor. cr mild better starting to go down from 2.09 to 1.9. 6. Diabetes, stable. Continue with medications. 7. Hypothyroidism, stable. Continue with medications. Subjective 24 Hr Interval Summary Free Text/Dictation family at bedside. discussed transfusion. unlikely family can donate blood for specific pt within time limit. family then says ok to transfuse rbc if necessary. Exam/Review of Systems Vital Signs Vitals Vital Signs Date Time Temp Pulse Resp B/P Pulse Ox O2 Delivery O2 Flow Rate FiO2 07/05/17 08:11 58 07/05/17 08:00 Nasal Cannula 2.0 07/05/17 07:40 98 07/05/17 07:35 30 07/05/17 07:23 98.0 18 120/68 Intake and Output 07/04/17 07/04/17 07/05/17 14:59 22:59 06:59 Intake Total 400 ml 250 ml Output Total 800 ml 1000 ml Balance -400 ml -750 ml Exam awake Results LE no pitting Result Diagram: 07/05/17 0616 07/05/17 0616 Results 24 hrs Laboratory Tests Test 07/04/17 12:12 07/04/17 17:37 07/04/17 21:14 07/05/17 06:16 Bedside Glucose 103 90 95 White Blood Count 5.8 Red Blood Count 2.55 L Hemoglobin 7.6 L Hematocrit 24.2 L Mean Corpuscular Volume 94.9 Mean Corpuscular Hemoglobin 29.8 Mean Corpuscular Hemoglobin Concent 31.4 L Red Cell Distribution Width 14.4 Platelet Count 163 Mean Platelet Volume 10.9 H Neutrophils % 73.3 Lymphocytes % 14.2 L Monocytes % 9.3 Eosinophils % 2.9 Basophils % 0.0 Nucleated Red Blood Cells % 0.0 Neutrophils # 4.2 Lymphocytes # 0.8 Monocytes # 0.5 Eosinophils # 0.2 Basophils # 0.0 Nucleated Red Blood Cells # 0.0 Sodium Level 142 Potassium Level 3.5 Chloride Level 103 Carbon Dioxide Level 33 H Anion Gap 10 Blood Urea Nitrogen 52 H Creatinine 1.92 H Glucose Level 74 Calcium Level 8.4 Magnesium Level 1.8 Test 07/05/17 08:10 Bedside Glucose 77 Medications Medications Current Medications Ondansetron HCl (Zofran Inj) 4 mg Q6H PRN IV NAUSEA AND/OR VOMITING Last administered on 06/27/17 21:40; Admin Dose 4 MG; Start 06/13/17 at 15:30 Acetaminophen (Tylenol Tab) 650 mg Q6H PRN PO PAIN LEVEL 1-3 OR FEVER Last administered on 06/24/17 16:33; Admin Dose 650 MG; Start 06/13/17 at 15:30 Docusate Sodium (Colace) 100 mg Q12H PRN PO CONSTIPATION; Start 06/13/17 at 15 :30 Magnesium Hydroxide (Milk Of Mag) 30 ml DAILY PRN PO CONSTIPATION Last administered on 07/02/17 08:51; Admin Dose 30 ML; Start 06/13/17 at 15:30 Hydralazine HCl (Apresoline) 10 mg Q6H PRN IV ELEVATED BLOOD PRESSURE Last administered on 06/25/17 08:43; Admin Dose 10 MG; Start 06/13/17 at 15:30 Nitroglycerin (Nitroglycerin (Sl Tab) 0.4 Mg) 1 tab Q5M PRN SL ANGINA; Start 06/13/17 at 15:30 Atorvastatin Calcium (Lipitor) 10 mg HS PO Last administered on 06/16/17 21: 47; Admin Dose 10 MG; Start 06/13/17 at 21:00; Status Future Hold Levothyroxine Sodium (Synthroid) 100 mcg DAILY PO Last administered on 09:01; Admin Dose 100 MCG; Start 06/14/17 at 09:00 Montelukast Sodium (Singulair) 10 mg QHS PO Last administered on 07/04/17 21: 50; Admin Dose 10 MG; Start 06/13/17 at 21:00 Insulin Glargine (Lantus) 10 unit DAILY@20 SC ; Start 06/14/17 at 20:00; Status Future Hold Diagnostic Test (Pha) (Accu-Chek) 1 ea 02 XX Last administered on 06/24/17 02 :03; Admin Dose 1 EA; Start 06/15/17 at 02:00 Miscellaneous Information 1 ea NOTE XX ; Start 06/14/17 at 06:00 Glucose (Glutose) 15 gm Q15M PRN PO DECREASED GLUCOSE; Start 06/14/17 at 06:00 Glucose (Glutose) 22.5 gm Q15M PRN PO DECREASED GLUCOSE; Start 06/14/17 at 06: 00 Dextrose (D50w Syringe) 25 ml Q15M PRN IV DECREASED GLUCOSE Last administered on 06/17/17 04:41; Admin Dose 25 ML; Start 06/14/17 at 06:00 Dextrose (D50w Syringe) 50 ml Q15M PRN IV DECREASED GLUCOSE; Start 06/14/17 at 06:00 Glucagon (Glucagen) 1 mg Q15M PRN IM DECREASED GLUCOSE; Start 06/14/17 at 06: 00 Glucose (Glutose) 15 gm Q15M PRN BUCCAL DECREASED GLUCOSE; Start 06/14/17 at 06:00 Enoxaparin Sodium (Lovenox) 60 mg DAILY SC Last administered on 07/05/17 09:05 ; Admin Dose 60 MG; Start 06/17/17 at 09:00 IV Flush (NS 10 ml) 10 ml PRN PRN IV IV PROTOCOL; Start 06/16/17 at 14:00 Haloperidol (Haldol) 1 mg Q12 PRN IV agitation Last administered on 06/16/17 21:56; Admin Dose 1 MG; Start 06/16/17 at 20:30 Metoprolol Tartrate (Lopressor) 50 mg BID PO Last administered on 06/23/17 20 :02; Admin Dose 50 MG; Start 06/19/17 at 21:00; Status Future hold Diltiazem HCl (Cardizem) 60 mg Q8 GTB Last administered on 07/05/17 06:41; Admin Dose 60 MG; Start 06/23/17 at 14:00; Status Future hold Furosemide (Lasix) 20 mg DAILY IV Last administered on 07/05/17 09:01; Admin Dose 20 MG; Start 06/30/17 at 13:30 Hydralazine HCl (Apresoline) 25 mg Q8 PO Last administered on 07/05/17 06:40; Admin Dose 25 MG; Start 06/30/17 at 14:00 Carvedilol (Coreg) 6.25 mg BID PO Last administered on 07/05/17 09:01; Admin Dose 6.25 MG; Start 07/02/17 at 21:00 Pantoprazole (Protonix Tab) 40 mg BID@,18 PO Last administered on 07/05/17 06:40; Admin Dose 40 MG; Start 07/02/17 at 18:00 HUSSEIN JULIEN MD Jul 05, 2017 11:06
--- NOTE | 2017-07-05 14:25 | CONS ---
Date/Time of Note Date/Time of Note DATE: 07/05/17 TIME: 14:22 Assessment/Plan Assessment/Plan Chief Complaint/Hosp Course IMP: 1.Hypotension-improved off of pressors/NL EF by echo this admit-now HTN which is well controlled 2. AF with RVR-yesterday apparently had pause 3 seconds and all estrella agents were held- now on coreg/dilt with good heart rates and no sig eren or pause 3. Renal failure-ongoing 4. Hypercarbic resp failure s/p extubation-improved off BIPAP in ICU 5. Hypothyroid 6. PLeural effusion-s/p thoracentesis 7. Anemia-ongoing Recc: -Tele -serial ecg's -Continue lasix diuresis s/p extra dose overnight -Continue lovenox QD as tolerated given anemia -Hold asa given anemia -Follow HR/BP/volume status closely -Continue BB/CCB and follow HR clsoely -Continue hydralazine -Possible transfusion Problems: Consultation Date/Type/Reason Admit Date/Time Jun 14, 2017 at 09:27 Initial Consult Date 06/15/17 Type of Consultation: cardiology Reason for Consultation AF Referring Provider: SARAH VINCENT Exam/Review of Systems Vital Signs Vitals Vital Signs Date Time Temp Pulse Resp B/P Pulse Ox O2 Delivery O2 Flow Rate FiO2 07/05/17 12:06 71 07/05/17 11:23 98.2 16 115/67 100 07/05/17 08:00 Nasal Cannula 2.0 07/05/17 07:35 30 Intake and Output 07/04/17 07/04/17 07/05/17 14:59 22:59 06:59 Intake Total 400 ml 250 ml Output Total 800 ml 1000 ml Balance -400 ml -750 ml Exam Review of Systems: CONSTITUTIONAL: No fevers, chills. PULMONARY: No sob CARDIOVASCULAR: No chest pain/palpitations GASTROINTESTINAL: No nausea/vomiting. GENITOURINARY: No hematuria/dysuria. MUSCULOSKELETAL: No myagias/arthalgias. PSYCHIATRIC: The patient denies depression. NEUROLOGIC: somewhat lethargic Constitutional: alert Psych: no complaints Head: normocephalic ENMT: mucosa pink and moist Neck: jvd (9 cm water), supple Respiratory: diminished breath sounds (at bases/B) Cardiovascular: regular rate and rhythm Gastrointestinal: non-tender, soft Musculoskeletal: muscle tone (normal) Extremities: pitting pedal edema (Trace/.B) Results Result Diagram: 07/05/17 0616 07/05/17 0616 Results 24 hrs Laboratory Tests Test 07/04/17 17:37 07/04/17 21:14 07/05/17 06:16 07/05/17 08:10 Bedside Glucose 90 95 77 White Blood Count 5.8 Red Blood Count 2.55 L Hemoglobin 7.6 L Hematocrit 24.2 L Mean Corpuscular Volume 94.9 Mean Corpuscular Hemoglobin 29.8 Mean Corpuscular Hemoglobin Concent 31.4 L Red Cell Distribution Width 14.4 Platelet Count 163 Mean Platelet Volume 10.9 H Neutrophils % 73.3 Lymphocytes % 14.2 L Monocytes % 9.3 Eosinophils % 2.9 Basophils % 0.0 Nucleated Red Blood Cells % 0.0 Neutrophils # 4.2 Lymphocytes # 0.8 Monocytes # 0.5 Eosinophils # 0.2 Basophils # 0.0 Nucleated Red Blood Cells # 0.0 Sodium Level 142 Potassium Level 3.5 Chloride Level 103 Carbon Dioxide Level 33 H Anion Gap 10 Blood Urea Nitrogen 52 H Creatinine 1.92 H Glucose Level 74 Calcium Level 8.4 Magnesium Level 1.8 Test 07/05/17 11:43 Bedside Glucose 113 Medications Medications Current Medications Ondansetron HCl (Zofran Inj) 4 mg Q6H PRN IV NAUSEA AND/OR VOMITING Last administered on 06/27/17 21:40; Admin Dose 4 MG; Start 06/13/17 at 15:30 Acetaminophen (Tylenol Tab) 650 mg Q6H PRN PO PAIN LEVEL 1-3 OR FEVER Last administered on 06/24/17 16:33; Admin Dose 650 MG; Start 06/13/17 at 15:30 Docusate Sodium (Colace) 100 mg Q12H PRN PO CONSTIPATION; Start 06/13/17 at 15 :30 Magnesium Hydroxide (Milk Of Mag) 30 ml DAILY PRN PO CONSTIPATION Last administered on 07/02/17 08:51; Admin Dose 30 ML; Start 06/13/17 at 15:30 Hydralazine HCl (Apresoline) 10 mg Q6H PRN IV ELEVATED BLOOD PRESSURE Last administered on 06/25/17 08:43; Admin Dose 10 MG; Start 06/13/17 at 15:30 Nitroglycerin (Nitroglycerin (Sl Tab) 0.4 Mg) 1 tab Q5M PRN SL ANGINA; Start 06/13/17 at 15:30 Atorvastatin Calcium (Lipitor) 10 mg HS PO Last administered on 06/16/17 21: 47; Admin Dose 10 MG; Start 06/13/17 at 21:00; Status Future Hold Levothyroxine Sodium (Synthroid) 100 mcg DAILY PO Last administered on 09:01; Admin Dose 100 MCG; Start 06/14/17 at 09:00 Montelukast Sodium (Singulair) 10 mg QHS PO Last administered on 07/04/17 21: 50; Admin Dose 10 MG; Start 06/13/17 at 21:00 Insulin Glargine (Lantus) 10 unit DAILY@20 SC ; Start 06/14/17 at 20:00; Status Future Hold Diagnostic Test (Pha) (Accu-Chek) 1 ea 02 XX Last administered on 06/24/17 02 :03; Admin Dose 1 EA; Start 06/15/17 at 02:00 Miscellaneous Information 1 ea NOTE XX ; Start 06/14/17 at 06:00 Glucose (Glutose) 15 gm Q15M PRN PO DECREASED GLUCOSE; Start 06/14/17 at 06:00 Glucose (Glutose) 22.5 gm Q15M PRN PO DECREASED GLUCOSE; Start 06/14/17 at 06: 00 Dextrose (D50w Syringe) 25 ml Q15M PRN IV DECREASED GLUCOSE Last administered on 06/17/17 04:41; Admin Dose 25 ML; Start 06/14/17 at 06:00 Dextrose (D50w Syringe) 50 ml Q15M PRN IV DECREASED GLUCOSE; Start 06/14/17 at 06:00 Glucagon (Glucagen) 1 mg Q15M PRN IM DECREASED GLUCOSE; Start 06/14/17 at 06: 00 Glucose (Glutose) 15 gm Q15M PRN BUCCAL DECREASED GLUCOSE; Start 06/14/17 at 06:00 Enoxaparin Sodium (Lovenox) 60 mg DAILY SC Last administered on 07/05/17 09:05 ; Admin Dose 60 MG; Start 06/17/17 at 09:00 IV Flush (NS 10 ml) 10 ml PRN PRN IV IV PROTOCOL; Start 06/16/17 at 14:00 Haloperidol (Haldol) 1 mg Q12 PRN IV agitation Last administered on 06/16/17 21:56; Admin Dose 1 MG; Start 06/16/17 at 20:30 Metoprolol Tartrate (Lopressor) 50 mg BID PO Last administered on 06/23/17 20 :02; Admin Dose 50 MG; Start 06/19/17 at 21:00; Status Future hold Diltiazem HCl (Cardizem) 60 mg Q8 GTB Last administered on 07/05/17 06:41; Admin Dose 60 MG; Start 06/23/17 at 14:00; Status Future hold Furosemide (Lasix) 20 mg DAILY IV Last administered on 07/05/17 09:01; Admin Dose 20 MG; Start 06/30/17 at 13:30 Hydralazine HCl (Apresoline) 25 mg Q8 PO Last administered on 07/05/17 06:40; Admin Dose 25 MG; Start 06/30/17 at 14:00 Carvedilol (Coreg) 6.25 mg BID PO Last administered on 07/05/17 09:01; Admin Dose 6.25 MG; Start 07/02/17 at 21:00 Pantoprazole (Protonix Tab) 40 mg BID@,18 PO Last administered on 07/05/17 06:40; Admin Dose 40 MG; Start 07/02/17 at 18:00 WEN GOFF Jul 05, 2017 14:25
--- NOTE | 2017-07-05 16:00 | CONS ---
Date/Time of Note Date/Time of Note DATE: 07/05/17 TIME: 15:58 Consult Date/Type/Reason Admit Date/Time Jun 14, 2017 at 09:27 Initial Consult Date Type of Consultation: Pulm Ordering Provider: SARAH VINCENT Subjective Is on BiPAP; appears comfortable. Objective Vital Signs Date Time Temp Pulse Resp B/P Pulse Ox O2 Delivery O2 Flow Rate FiO2 07/05/17 15:20 98.6 86 16 146/89 98 07/05/17 08:00 Nasal Cannula 2.0 07/05/17 07:35 30 Intake and Output 07/04/17 07/04/17 07/05/17 15:00 23:00 07:00 Intake Total 400 ml 250 ml Output Total 800 ml 1000 ml Balance -400 ml -750 ml Exam HEENT: Neck supple; no JVD; no LAD CVS: Irreg irreg, S1 and S2 CHEST: Diminished at bases ABD: Soft, NT, + BS EXT: No c/c/ + edema Results/Medications Result Diagram: 07/05/17 0616 07/05/17 0616 Results 24 hrs Laboratory Tests Test 07/04/17 17:37 07/04/17 21:14 07/05/17 06:16 07/05/17 08:10 Bedside Glucose 90 95 77 White Blood Count 5.8 Red Blood Count 2.55 L Hemoglobin 7.6 L Hematocrit 24.2 L Mean Corpuscular Volume 94.9 Mean Corpuscular Hemoglobin 29.8 Mean Corpuscular Hemoglobin Concent 31.4 L Red Cell Distribution Width 14.4 Platelet Count 163 Mean Platelet Volume 10.9 H Neutrophils % 73.3 Lymphocytes % 14.2 L Monocytes % 9.3 Eosinophils % 2.9 Basophils % 0.0 Nucleated Red Blood Cells % 0.0 Neutrophils # 4.2 Lymphocytes # 0.8 Monocytes # 0.5 Eosinophils # 0.2 Basophils # 0.0 Nucleated Red Blood Cells # 0.0 Sodium Level 142 Potassium Level 3.5 Chloride Level 103 Carbon Dioxide Level 33 H Anion Gap 10 Blood Urea Nitrogen 52 H Creatinine 1.92 H Glucose Level 74 Calcium Level 8.4 Magnesium Level 1.8 Test 07/05/17 11:43 Bedside Glucose 113 Medications Current Medications Ondansetron HCl (Zofran Inj) 4 mg Q6H PRN IV NAUSEA AND/OR VOMITING Last administered on 06/27/17 21:40; Admin Dose 4 MG; Start 06/13/17 at 15:30 Acetaminophen (Tylenol Tab) 650 mg Q6H PRN PO PAIN LEVEL 1-3 OR FEVER Last administered on 06/24/17 16:33; Admin Dose 650 MG; Start 06/13/17 at 15:30 Docusate Sodium (Colace) 100 mg Q12H PRN PO CONSTIPATION; Start 06/13/17 at 15 :30 Magnesium Hydroxide (Milk Of Mag) 30 ml DAILY PRN PO CONSTIPATION Last administered on 07/02/17 08:51; Admin Dose 30 ML; Start 06/13/17 at 15:30 Hydralazine HCl (Apresoline) 10 mg Q6H PRN IV ELEVATED BLOOD PRESSURE Last administered on 06/25/17 08:43; Admin Dose 10 MG; Start 06/13/17 at 15:30 Nitroglycerin (Nitroglycerin (Sl Tab) 0.4 Mg) 1 tab Q5M PRN SL ANGINA; Start 06/13/17 at 15:30 Atorvastatin Calcium (Lipitor) 10 mg HS PO Last administered on 06/16/17 21: 47; Admin Dose 10 MG; Start 06/13/17 at 21:00; Status Future Hold Levothyroxine Sodium (Synthroid) 100 mcg DAILY PO Last administered on 09:01; Admin Dose 100 MCG; Start 06/14/17 at 09:00 Montelukast Sodium (Singulair) 10 mg QHS PO Last administered on 07/04/17 21: 50; Admin Dose 10 MG; Start 06/13/17 at 21:00 Insulin Glargine (Lantus) 10 unit DAILY@20 SC ; Start 06/14/17 at 20:00; Status Future Hold Diagnostic Test (Pha) (Accu-Chek) 1 ea 02 XX Last administered on 06/24/17 02 :03; Admin Dose 1 EA; Start 06/15/17 at 02:00 Miscellaneous Information 1 ea NOTE XX ; Start 06/14/17 at 06:00 Glucose (Glutose) 15 gm Q15M PRN PO DECREASED GLUCOSE; Start 06/14/17 at 06:00 Glucose (Glutose) 22.5 gm Q15M PRN PO DECREASED GLUCOSE; Start 06/14/17 at 06: 00 Dextrose (D50w Syringe) 25 ml Q15M PRN IV DECREASED GLUCOSE Last administered on 06/17/17 04:41; Admin Dose 25 ML; Start 06/14/17 at 06:00 Dextrose (D50w Syringe) 50 ml Q15M PRN IV DECREASED GLUCOSE; Start 06/14/17 at 06:00 Glucagon (Glucagen) 1 mg Q15M PRN IM DECREASED GLUCOSE; Start 06/14/17 at 06: 00 Glucose (Glutose) 15 gm Q15M PRN BUCCAL DECREASED GLUCOSE; Start 06/14/17 at 06:00 Enoxaparin Sodium (Lovenox) 60 mg DAILY SC Last administered on 07/05/17 09:05 ; Admin Dose 60 MG; Start 06/17/17 at 09:00 IV Flush (NS 10 ml) 10 ml PRN PRN IV IV PROTOCOL; Start 06/16/17 at 14:00 Haloperidol (Haldol) 1 mg Q12 PRN IV agitation Last administered on 06/16/17 21:56; Admin Dose 1 MG; Start 06/16/17 at 20:30 Metoprolol Tartrate (Lopressor) 50 mg BID PO Last administered on 06/23/17 20 :02; Admin Dose 50 MG; Start 06/19/17 at 21:00; Status Future hold Diltiazem HCl (Cardizem) 60 mg Q8 GTB Last administered on 07/05/17 14:32; Admin Dose 60 MG; Start 06/23/17 at 14:00; Status Future hold Furosemide (Lasix) 20 mg DAILY IV Last administered on 07/05/17 09:01; Admin Dose 20 MG; Start 06/30/17 at 13:30 Hydralazine HCl (Apresoline) 25 mg Q8 PO Last administered on 07/05/17 14:32; Admin Dose 25 MG; Start 06/30/17 at 14:00 Carvedilol (Coreg) 6.25 mg BID PO Last administered on 07/05/17 09:01; Admin Dose 6.25 MG; Start 07/02/17 at 21:00 Pantoprazole (Protonix Tab) 40 mg BID@,18 PO Last administered on 07/05/17 06:40; Admin Dose 40 MG; Start 07/02/17 at 18:00 Assessment/Plan Additional Assessment/Plan IMP: 1. Hypercapnic respiratory failure, placed back on BiPAP 2. CHF 3. Atrial fibrillation with rapid ventricular rate 4. Diabetes mellitus. 5. Status post shock. 6. Renal insufficiency. Plan 1. Continue BiPAP prn 2. Rate control per cardiology. 3. Follow H/H 4. Diuresis MEGAN VARGAS MD Jul 05, 2017 16:00
[2017-07-05] MEDS: MONTELUKAST 10 MG TAB PO SCH (21:51)
[2017-07-06] VITALS (14 sets, daily range): BP systolic 111–153; BP diastolic 59–69; PULSE 52–91; RESP 16–20
[2017-07-06] MEDS: ACCU-CHEK XX SCH (02:00)
[2017-07-06] MEDS: DILTIAZEM 60 MG TAB GTB SCH ×3 (06:00→20:46)
[2017-07-06] MEDS: PANTOPRAZOLE (EC) 40 MG TAB PO SCH ×2 (06:19→17:09)
[2017-07-06 06:47] LABS: BASOPHILS % 0.2 % (0.0-2.0); EOSINOPHILS # 0.2 10^3/ul (0.0-0.5); EOSINOPHILS % 3.7 % (0.0-7.0); HEMATOCRIT 25.1 % (37.0-47.0); HEMOGLOBIN 7.8 g/dl (12.0-16.0); LYMPHOCYTES # 0.7 10^3/ul (0.8-2.9); LYMPHOCYTES % 11.9 % (15.0-51.0); MEAN CORPUSCULAR HEMOGLOBIN 29.4 pg (29.0-33.0); MEAN CORPUSCULAR HGB CONC 31.1 g/dl (32.0-37.0); MEAN CORPUSCULAR VOLUME 94.7 fl (82.0-101.0); MEAN PLATELET VOLUME 10.7 fl (7.4-10.4); MONOCYTE # 0.5 10^3/ul (0.3-0.9); MONOCYTES % 9.6 % (0.0-11.0); NEUTROPHIL # 4.2 10^3/ul (1.6-7.5); NEUTROPHILS % 74.4 % (39.0-77.0); PLATELET COUNT 169 10^3/UL (140-415); RED BLOOD COUNT 2.65 10^6/ul (4.20-5.40); RED CELL DISTRIBUTION WIDTH 14.6 % (11.5-14.5); WHITE BLOOD COUNT 5.6 10^3/ul (4.8-10.8)
[2017-07-06 06:59] LABS: ALBUMIN 2.5 g/dl (3.3-4.9); ALBUMIN/GLOBULIN RATIO 0.92; BILIRUBIN,INDIRECT 0.2 mg/dl (0-1.1); BILIRUBIN,TOTAL 0.2 mg/dl (0.2-1.3); CALCIUM 8.6 mg/dl (8.4-10.2); CREATININE 1.77 mg/dl (0.44-1.00); POTASSIUM 3.5 mmol/L (3.5-5.1); TOTAL PROTEIN 5.2 g/dl (6.1-8.1)
[2017-07-06] MEDS: INSULIN ASPART [NOVOLOG] 3 ML PEN SC SCH ×4 (07:25→20:54)
[2017-07-06] MEDS: FUROSEMIDE 20 MG INJ IV SCH ×2 (08:40→17:10)
[2017-07-06] MEDS: LEVOTHYROXINE 100 MCG TAB PO SCH (08:41)
[2017-07-06] MEDS: ENOXAPARIN 60 MG/0.6 ML SYG SC SCH (08:42)
[2017-07-06] MEDS: BALSAM PERU/CASTOR OIL 60 GM TUBE TOP SCH ×2 (08:43→20:53)
[2017-07-06] MEDS ORDERED: EPOETIN ALFA (NESRD) 3,000 UNITS/ML VIAL SC ONE (11:30)
--- NOTE | 2017-07-06 11:49 | PN ---
Date/Time of Note Date/Time of Note DATE: 07/06/17 TIME: 11:46 Assessment/Plan VTE Prophylaxis VTE Prophylaxis Intervention: other Lines/Catheters IV Catheter Type (from [facility]): PICC Line Central line still needed: Yes Urinary Cath still in place: Yes Reason Cath still needed: other (indicate) Assessment/Plan Assessment/Plan 1. Acute respiratory failure with hypercapnia. The patient remains stable. The patient had some somnolence yesterday and was placed on BiPAP for about an hour yesterday. Blood gas morning is good with a pCO2 of 44. We will continue with nighttime BiPAP 2. Anemia . The patient's family wants to wait on transfusion and patient's family wants to be able to donate blood if she does need transfusions, so will type and screen the patient today and repeat CBC in the morning. If still low, will transfuse. on 07/05 hgb same or slightly better from 7.5 to 7.6. unless family has blood available cont to watch. family at bedside says if family member transfusion is not available and is necessary then will transfuse. if hgb goes lower 7.5 then will transfuse. hgb 7.8. will give dose epogen today. fe lvl low start po dose. 3. Atrial fibrillation remains controlled. We will continue with current medications and adjust as needed. 4. Acute congestive heart failure combined/coronary artery disease/hypertension , improved. We will continue with Lasix and control blood pressure. 5. Acute on chronic renal insufficiency, improved. We will continue to monitor. cr mild better starting to go down from 2.09 to 1.9. 6. Diabetes, stable. Continue with medications. 7. Hypothyroidism, stable. Continue with medications. Exam/Review of Systems Vital Signs Vitals Vital Signs Date Time Temp Pulse Resp B/P Pulse Ox O2 Delivery O2 Flow Rate FiO2 07/06/17 11:18 98.2 90 17 139/65 99 07/06/17 07:55 Nasal Cannula 2.0 07/06/17 05:20 30 Intake and Output 07/05/17 07/05/17 07/06/17 15:00 23:00 07:00 Intake Total 680 ml Output Total 1000 ml Balance -320 ml Results Result Diagram: 07/06/17 0605 07/06/17 0554 Results 24 hrs Laboratory Tests Test 07/05/17 17:37 07/05/17 21:57 07/06/17 05:54 07/06/17 06:05 Bedside Glucose 91 83 Sodium Level 142 Potassium Level 3.5 Chloride Level 101 Carbon Dioxide Level 34 H Anion Gap 11 Blood Urea Nitrogen 46 H Creatinine 1.77 H Glucose Level 70 Calcium Level 8.6 Total Bilirubin 0.2 Direct Bilirubin 0.00 Indirect Bilirubin 0.2 Aspartate Amino Transf (AST/SGOT) 19 Alanine Aminotransferase (ALT/SGPT) 33 Alkaline Phosphatase 44 Total Protein 5.2 L Albumin 2.5 L Globulin 2.70 Albumin/Globulin Ratio 0.92 White Blood Count 5.6 Red Blood Count 2.65 L Hemoglobin 7.8 L Hematocrit 25.1 L Mean Corpuscular Volume 94.7 Mean Corpuscular Hemoglobin 29.4 Mean Corpuscular Hemoglobin Concent 31.1 L Red Cell Distribution Width 14.6 H Platelet Count 169 Mean Platelet Volume 10.7 H Neutrophils % 74.4 Lymphocytes % 11.9 L Monocytes % 9.6 Eosinophils % 3.7 Basophils % 0.2 Nucleated Red Blood Cells % 0.0 Neutrophils # 4.2 Lymphocytes # 0.7 L Monocytes # 0.5 Eosinophils # 0.2 Basophils # 0.0 Nucleated Red Blood Cells # 0.0 Test 07/06/17 07:40 07/06/17 11:39 Bedside Glucose 76 82 Medications Medications Current Medications Ondansetron HCl (Zofran Inj) 4 mg Q6H PRN IV NAUSEA AND/OR VOMITING Last administered on 06/27/17 21:40; Admin Dose 4 MG; Start 06/13/17 at 15:30 Acetaminophen (Tylenol Tab) 650 mg Q6H PRN PO PAIN LEVEL 1-3 OR FEVER Last administered on 06/24/17 16:33; Admin Dose 650 MG; Start 06/13/17 at 15:30 Docusate Sodium (Colace) 100 mg Q12H PRN PO CONSTIPATION; Start 06/13/17 at 15 :30 Magnesium Hydroxide (Milk Of Mag) 30 ml DAILY PRN PO CONSTIPATION Last administered on 07/02/17 08:51; Admin Dose 30 ML; Start 06/13/17 at 15:30 Hydralazine HCl (Apresoline) 10 mg Q6H PRN IV ELEVATED BLOOD PRESSURE Last administered on 06/25/17 08:43; Admin Dose 10 MG; Start 06/13/17 at 15:30 Nitroglycerin (Nitroglycerin (Sl Tab) 0.4 Mg) 1 tab Q5M PRN SL ANGINA; Start 06/13/17 at 15:30 Atorvastatin Calcium (Lipitor) 10 mg HS PO Last administered on 06/16/17 21: 47; Admin Dose 10 MG; Start 06/13/17 at 21:00; Status Future Hold Levothyroxine Sodium (Synthroid) 100 mcg DAILY PO Last administered on 08:41; Admin Dose 100 MCG; Start 06/14/17 at 09:00 Montelukast Sodium (Singulair) 10 mg QHS PO Last administered on 07/05/17 21: 51; Admin Dose 10 MG; Start 06/13/17 at 21:00 Insulin Glargine (Lantus) 10 unit DAILY@20 SC ; Start 06/14/17 at 20:00; Status Future Hold Diagnostic Test (Pha) (Accu-Chek) 1 ea 02 XX Last administered on 06/24/17 02 :03; Admin Dose 1 EA; Start 06/15/17 at 02:00 Miscellaneous Information 1 ea NOTE XX ; Start 06/14/17 at 06:00 Glucose (Glutose) 15 gm Q15M PRN PO DECREASED GLUCOSE; Start 06/14/17 at 06:00 Glucose (Glutose) 22.5 gm Q15M PRN PO DECREASED GLUCOSE; Start 06/14/17 at 06: 00 Dextrose (D50w Syringe) 25 ml Q15M PRN IV DECREASED GLUCOSE Last administered on 06/17/17 04:41; Admin Dose 25 ML; Start 06/14/17 at 06:00 Dextrose (D50w Syringe) 50 ml Q15M PRN IV DECREASED GLUCOSE; Start 06/14/17 at 06:00 Glucagon (Glucagen) 1 mg Q15M PRN IM DECREASED GLUCOSE; Start 06/14/17 at 06: 00 Glucose (Glutose) 15 gm Q15M PRN BUCCAL DECREASED GLUCOSE; Start 06/14/17 at 06:00 Enoxaparin Sodium (Lovenox) 60 mg DAILY SC Last administered on 07/06/17 08:42 ; Admin Dose 60 MG; Start 06/17/17 at 09:00 IV Flush (NS 10 ml) 10 ml PRN PRN IV IV PROTOCOL; Start 06/16/17 at 14:00 Haloperidol (Haldol) 1 mg Q12 PRN IV agitation Last administered on 06/16/17 21:56; Admin Dose 1 MG; Start 06/16/17 at 20:30 Metoprolol Tartrate (Lopressor) 50 mg BID PO Last administered on 06/23/17 20 :02; Admin Dose 50 MG; Start 06/19/17 at 21:00; Status Future hold Diltiazem HCl (Cardizem) 60 mg Q8 GTB Last administered on 07/05/17 21:53; Admin Dose 60 MG; Start 06/23/17 at 14:00; Status Future hold Furosemide (Lasix) 20 mg DAILY IV Last administered on 07/06/17 08:40; Admin Dose 20 MG; Start 06/30/17 at 13:30 Hydralazine HCl (Apresoline) 25 mg Q8 PO Last administered on 07/06/17 06:19; Admin Dose 25 MG; Start 06/30/17 at 14:00 Carvedilol (Coreg) 6.25 mg BID PO Last administered on 07/06/17 08:41; Admin Dose 6.25 MG; Start 07/02/17 at 21:00 Pantoprazole (Protonix Tab) 40 mg BID@,18 PO Last administered on 07/06/17 06:19; Admin Dose 40 MG; Start 07/02/17 at 18:00 Epoetin Dank (Epogen (Non Esrd/Non Oncology)) 10,000 units ONCE SC ; Start 07/06 at 12:00; Stop 07/06/17 at 12:01 HUSSEIN JULIEN MD Jul 06, 2017 11:49
[2017-07-06] MEDS ORDERED: EPOETIN 10000 UNITS/ML (NON ESRD/NON ONCOLOGY) SC SCH (12:00)
[2017-07-06] MEDS: FERROUS SULFATE (EC) 325 MG TAB PO SCH (13:34)
--- NOTE | 2017-07-06 14:06 | CONS ---
Date/Time of Note Date/Time of Note DATE: 07/06/17 TIME: 14:04 Assessment/Plan Assessment/Plan Chief Complaint/Hosp Course IMP: 1.Hypotension-improved off of pressors/NL EF by echo this admit-now HTN which is well controlled 2. AF with RVR-yesterday apparently had pause 3 seconds and all estrella agents were held- now on coreg/dilt with good heart rates and no sig eren or pause 3. Renal failure-ongoing but slowly improving 4. Hypercarbic resp failure s/p extubation-improved with BIPAP at night 5. Hypothyroid 6. PLeural effusion-s/p thoracentesis 7. Anemia-ongoing Recc: -Tele -serial ecg's -Continue lasix diuresis which I will increase -Continue lovenox QD as tolerated given anemia -Hold asa given anemia -Follow HR/BP/volume status closely -Continue BB/CCB and follow HR clsoely -Continue hydralazine as well with well controlled BP -Possible transfusion Problems: Consultation Date/Type/Reason Admit Date/Time Jun 14, 2017 at 09:27 Initial Consult Date 06/15/17 Type of Consultation: cardiology Reason for Consultation AF Referring Provider: SARAH VINCENT Exam/Review of Systems Vital Signs Vitals Vital Signs Date Time Temp Pulse Resp B/P Pulse Ox O2 Delivery O2 Flow Rate FiO2 07/06/17 12:36 78 07/06/17 11:18 98.2 17 139/65 99 07/06/17 07:55 Nasal Cannula 2.0 07/06/17 05:20 30 Intake and Output 07/05/17 07/05/17 07/06/17 15:00 23:00 07:00 Intake Total 680 ml Output Total 1000 ml Balance -320 ml Exam Review of Systems: CONSTITUTIONAL: No fevers, chills. PULMONARY: No sob CARDIOVASCULAR: No chest pain/palpitations GASTROINTESTINAL: No nausea/vomiting. GENITOURINARY: No hematuria/dysuria. MUSCULOSKELETAL: No myagias/arthalgias. PSYCHIATRIC: The patient denies depression. NEUROLOGIC: somewhat lethargic Constitutional: alert Psych: no complaints Head: normocephalic ENMT: mucosa pink and moist Neck: jvd (9 cm water), supple Respiratory: diminished breath sounds (at bases/B) Cardiovascular: regular rate and rhythm Gastrointestinal: non-tender, soft Musculoskeletal: muscle weakness (generalized) Extremities: pitting pedal edema (BIlateral) Neurological: lethargic Results Result Diagram: 07/06/17 0605 07/06/17 0554 Results 24 hrs Laboratory Tests Test 07/05/17 17:37 07/05/17 21:57 07/06/17 05:54 07/06/17 06:05 Bedside Glucose 91 83 Sodium Level 142 Potassium Level 3.5 Chloride Level 101 Carbon Dioxide Level 34 H Anion Gap 11 Blood Urea Nitrogen 46 H Creatinine 1.77 H Glucose Level 70 Calcium Level 8.6 Total Bilirubin 0.2 Direct Bilirubin 0.00 Indirect Bilirubin 0.2 Aspartate Amino Transf (AST/SGOT) 19 Alanine Aminotransferase (ALT/SGPT) 33 Alkaline Phosphatase 44 Total Protein 5.2 L Albumin 2.5 L Globulin 2.70 Albumin/Globulin Ratio 0.92 White Blood Count 5.6 Red Blood Count 2.65 L Hemoglobin 7.8 L Hematocrit 25.1 L Mean Corpuscular Volume 94.7 Mean Corpuscular Hemoglobin 29.4 Mean Corpuscular Hemoglobin Concent 31.1 L Red Cell Distribution Width 14.6 H Platelet Count 169 Mean Platelet Volume 10.7 H Neutrophils % 74.4 Lymphocytes % 11.9 L Monocytes % 9.6 Eosinophils % 3.7 Basophils % 0.2 Nucleated Red Blood Cells % 0.0 Neutrophils # 4.2 Lymphocytes # 0.7 L Monocytes # 0.5 Eosinophils # 0.2 Basophils # 0.0 Nucleated Red Blood Cells # 0.0 Test 07/06/17 07:40 07/06/17 11:39 Bedside Glucose 76 82 Medications Medications Current Medications Ondansetron HCl (Zofran Inj) 4 mg Q6H PRN IV NAUSEA AND/OR VOMITING Last administered on 06/27/17 21:40; Admin Dose 4 MG; Start 06/13/17 at 15:30 Acetaminophen (Tylenol Tab) 650 mg Q6H PRN PO PAIN LEVEL 1-3 OR FEVER Last administered on 06/24/17 16:33; Admin Dose 650 MG; Start 06/13/17 at 15:30 Docusate Sodium (Colace) 100 mg Q12H PRN PO CONSTIPATION; Start 06/13/17 at 15 :30 Magnesium Hydroxide (Milk Of Mag) 30 ml DAILY PRN PO CONSTIPATION Last administered on 07/02/17 08:51; Admin Dose 30 ML; Start 06/13/17 at 15:30 Hydralazine HCl (Apresoline) 10 mg Q6H PRN IV ELEVATED BLOOD PRESSURE Last administered on 06/25/17 08:43; Admin Dose 10 MG; Start 06/13/17 at 15:30 Nitroglycerin (Nitroglycerin (Sl Tab) 0.4 Mg) 1 tab Q5M PRN SL ANGINA; Start 06/13/17 at 15:30 Atorvastatin Calcium (Lipitor) 10 mg HS PO Last administered on 06/16/17 21: 47; Admin Dose 10 MG; Start 06/13/17 at 21:00; Status Future Hold Levothyroxine Sodium (Synthroid) 100 mcg DAILY PO Last administered on 08:41; Admin Dose 100 MCG; Start 06/14/17 at 09:00 Montelukast Sodium (Singulair) 10 mg QHS PO Last administered on 07/05/17 21: 51; Admin Dose 10 MG; Start 06/13/17 at 21:00 Insulin Glargine (Lantus) 10 unit DAILY@20 SC ; Start 06/14/17 at 20:00; Status Future Hold Diagnostic Test (Pha) (Accu-Chek) 1 ea 02 XX Last administered on 06/24/17 02 :03; Admin Dose 1 EA; Start 06/15/17 at 02:00 Miscellaneous Information 1 ea NOTE XX ; Start 06/14/17 at 06:00 Glucose (Glutose) 15 gm Q15M PRN PO DECREASED GLUCOSE; Start 06/14/17 at 06:00 Glucose (Glutose) 22.5 gm Q15M PRN PO DECREASED GLUCOSE; Start 06/14/17 at 06: 00 Dextrose (D50w Syringe) 25 ml Q15M PRN IV DECREASED GLUCOSE Last administered on 06/17/17 04:41; Admin Dose 25 ML; Start 06/14/17 at 06:00 Dextrose (D50w Syringe) 50 ml Q15M PRN IV DECREASED GLUCOSE; Start 06/14/17 at 06:00 Glucagon (Glucagen) 1 mg Q15M PRN IM DECREASED GLUCOSE; Start 06/14/17 at 06: 00 Glucose (Glutose) 15 gm Q15M PRN BUCCAL DECREASED GLUCOSE; Start 06/14/17 at 06:00 Enoxaparin Sodium (Lovenox) 60 mg DAILY SC Last administered on 07/06/17 08:42 ; Admin Dose 60 MG; Start 06/17/17 at 09:00 IV Flush (NS 10 ml) 10 ml PRN PRN IV IV PROTOCOL; Start 06/16/17 at 14:00 Haloperidol (Haldol) 1 mg Q12 PRN IV agitation Last administered on 06/16/17 21:56; Admin Dose 1 MG; Start 06/16/17 at 20:30 Metoprolol Tartrate (Lopressor) 50 mg BID PO Last administered on 06/23/17 20 :02; Admin Dose 50 MG; Start 06/19/17 at 21:00; Status Future hold Diltiazem HCl (Cardizem) 60 mg Q8 GTB Last administered on 07/06/17 13:35; Admin Dose 60 MG; Start 06/23/17 at 14:00; Status Future hold Furosemide (Lasix) 20 mg DAILY IV Last administered on 07/06/17 08:40; Admin Dose 20 MG; Start 06/30/17 at 13:30 Hydralazine HCl (Apresoline) 25 mg Q8 PO Last administered on 07/06/17 13:34; Admin Dose 25 MG; Start 06/30/17 at 14:00 Carvedilol (Coreg) 6.25 mg BID PO Last administered on 07/06/17 08:41; Admin Dose 6.25 MG; Start 07/02/17 at 21:00 Pantoprazole (Protonix Tab) 40 mg BID@,18 PO Last administered on 07/06/17 06:19; Admin Dose 40 MG; Start 07/02/17 at 18:00 Ferrous Sulfate (Ferrous Sulfate (Ec)) 325 mg DAILY PO Last administered on 13:34; Admin Dose 325 MG; Start 07/06/17 at 12:00 WEN GOFF Jul 06, 2017 14:06
--- NOTE | 2017-07-06 14:29 | CONS ---
Date/Time of Note Date/Time of Note DATE: 07/06/17 TIME: 14:27 Consult Date/Type/Reason Admit Date/Time Jun 14, 2017 at 09:27 Type of Consultation: Pulm Ordering Provider: SARAH VINCENT Subjective No events. Objective Vital Signs Date Time Temp Pulse Resp B/P Pulse Ox O2 Delivery O2 Flow Rate FiO2 07/06/17 12:36 78 07/06/17 11:18 98.2 17 139/65 99 07/06/17 07:55 Nasal Cannula 2.0 07/06/17 05:20 30 Intake and Output 07/05/17 07/05/17 07/06/17 14:59 22:59 06:59 Intake Total 680 ml Output Total 1000 ml Balance -320 ml Exam HEENT: Neck supple; no JVD; no LAD CVS: Irreg irreg, S1 and S2 CHEST: Diminished at bases ABD: Soft, NT, + BS EXT: No c/c/ + edema Results/Medications Result Diagram: 07/06/17 0605 07/06/17 0554 Results 24 hrs Laboratory Tests Test 07/05/17 17:37 07/05/17 21:57 07/06/17 05:54 07/06/17 06:05 Bedside Glucose 91 83 Sodium Level 142 Potassium Level 3.5 Chloride Level 101 Carbon Dioxide Level 34 H Anion Gap 11 Blood Urea Nitrogen 46 H Creatinine 1.77 H Glucose Level 70 Calcium Level 8.6 Total Bilirubin 0.2 Direct Bilirubin 0.00 Indirect Bilirubin 0.2 Aspartate Amino Transf (AST/SGOT) 19 Alanine Aminotransferase (ALT/SGPT) 33 Alkaline Phosphatase 44 Total Protein 5.2 L Albumin 2.5 L Globulin 2.70 Albumin/Globulin Ratio 0.92 White Blood Count 5.6 Red Blood Count 2.65 L Hemoglobin 7.8 L Hematocrit 25.1 L Mean Corpuscular Volume 94.7 Mean Corpuscular Hemoglobin 29.4 Mean Corpuscular Hemoglobin Concent 31.1 L Red Cell Distribution Width 14.6 H Platelet Count 169 Mean Platelet Volume 10.7 H Neutrophils % 74.4 Lymphocytes % 11.9 L Monocytes % 9.6 Eosinophils % 3.7 Basophils % 0.2 Nucleated Red Blood Cells % 0.0 Neutrophils # 4.2 Lymphocytes # 0.7 L Monocytes # 0.5 Eosinophils # 0.2 Basophils # 0.0 Nucleated Red Blood Cells # 0.0 Test 07/06/17 07:40 07/06/17 11:39 Bedside Glucose 76 82 Medications Current Medications Ondansetron HCl (Zofran Inj) 4 mg Q6H PRN IV NAUSEA AND/OR VOMITING Last administered on 06/27/17 21:40; Admin Dose 4 MG; Start 06/13/17 at 15:30 Acetaminophen (Tylenol Tab) 650 mg Q6H PRN PO PAIN LEVEL 1-3 OR FEVER Last administered on 06/24/17 16:33; Admin Dose 650 MG; Start 06/13/17 at 15:30 Docusate Sodium (Colace) 100 mg Q12H PRN PO CONSTIPATION; Start 06/13/17 at 15 :30 Magnesium Hydroxide (Milk Of Mag) 30 ml DAILY PRN PO CONSTIPATION Last administered on 07/02/17 08:51; Admin Dose 30 ML; Start 06/13/17 at 15:30 Hydralazine HCl (Apresoline) 10 mg Q6H PRN IV ELEVATED BLOOD PRESSURE Last administered on 06/25/17 08:43; Admin Dose 10 MG; Start 06/13/17 at 15:30 Nitroglycerin (Nitroglycerin (Sl Tab) 0.4 Mg) 1 tab Q5M PRN SL ANGINA; Start 06/13/17 at 15:30 Atorvastatin Calcium (Lipitor) 10 mg HS PO Last administered on 06/16/17 21: 47; Admin Dose 10 MG; Start 06/13/17 at 21:00; Status Future Hold Levothyroxine Sodium (Synthroid) 100 mcg DAILY PO Last administered on 08:41; Admin Dose 100 MCG; Start 06/14/17 at 09:00 Montelukast Sodium (Singulair) 10 mg QHS PO Last administered on 07/05/17 21: 51; Admin Dose 10 MG; Start 06/13/17 at 21:00 Insulin Glargine (Lantus) 10 unit DAILY@20 SC ; Start 06/14/17 at 20:00; Status Future Hold Diagnostic Test (Pha) (Accu-Chek) 1 ea 02 XX Last administered on 06/24/17 02 :03; Admin Dose 1 EA; Start 06/15/17 at 02:00 Miscellaneous Information 1 ea NOTE XX ; Start 06/14/17 at 06:00 Glucose (Glutose) 15 gm Q15M PRN PO DECREASED GLUCOSE; Start 06/14/17 at 06:00 Glucose (Glutose) 22.5 gm Q15M PRN PO DECREASED GLUCOSE; Start 06/14/17 at 06: 00 Dextrose (D50w Syringe) 25 ml Q15M PRN IV DECREASED GLUCOSE Last administered on 06/17/17 04:41; Admin Dose 25 ML; Start 06/14/17 at 06:00 Dextrose (D50w Syringe) 50 ml Q15M PRN IV DECREASED GLUCOSE; Start 06/14/17 at 06:00 Glucagon (Glucagen) 1 mg Q15M PRN IM DECREASED GLUCOSE; Start 06/14/17 at 06: 00 Glucose (Glutose) 15 gm Q15M PRN BUCCAL DECREASED GLUCOSE; Start 06/14/17 at 06:00 Enoxaparin Sodium (Lovenox) 60 mg DAILY SC Last administered on 07/06/17 08:42 ; Admin Dose 60 MG; Start 06/17/17 at 09:00 IV Flush (NS 10 ml) 10 ml PRN PRN IV IV PROTOCOL; Start 06/16/17 at 14:00 Haloperidol (Haldol) 1 mg Q12 PRN IV agitation Last administered on 06/16/17 21:56; Admin Dose 1 MG; Start 06/16/17 at 20:30 Metoprolol Tartrate (Lopressor) 50 mg BID PO Last administered on 06/23/17 20 :02; Admin Dose 50 MG; Start 06/19/17 at 21:00; Status Future hold Diltiazem HCl (Cardizem) 60 mg Q8 GTB Last administered on 07/06/17 13:35; Admin Dose 60 MG; Start 06/23/17 at 14:00; Status Future hold Hydralazine HCl (Apresoline) 25 mg Q8 PO Last administered on 07/06/17 13:34; Admin Dose 25 MG; Start 06/30/17 at 14:00 Carvedilol (Coreg) 6.25 mg BID PO Last administered on 07/06/17 08:41; Admin Dose 6.25 MG; Start 07/02/17 at 21:00 Pantoprazole (Protonix Tab) 40 mg BID@18 PO Last administered on 07/06/17 06:19; Admin Dose 40 MG; Start 07/02/17 at 18:00 Ferrous Sulfate (Ferrous Sulfate (Ec)) 325 mg DAILY PO Last administered on 13:34; Admin Dose 325 MG; Start 07/06/17 at 12:00 Assessment/Plan Additional Assessment/Plan IMP: 1. Hypercapnic respiratory failure--requiring BiPAP 2. CHF 3. Atrial fibrillation with rapid ventricular rate 4. Diabetes mellitus. 5. Status post shock. 6. Renal insufficiency. Plan 1. Continue BiPAP as needed 2. Rate control per cardiology. 3. Follow H/H 4. Diuresis increased 5. Am CXR/ABG MEGAN VARGAS MD Jul 06, 2017 14:29
[2017-07-06] MEDS: MONTELUKAST 10 MG TAB PO SCH (20:46)
[2017-07-07] VITALS (20 sets, daily range): BP systolic 120–160; BP diastolic 59–91; PULSE 55–90; RESP 17–20
[2017-07-07] MEDS: ACCU-CHEK XX SCH (02:00)
[2017-07-07 06:28] LABS: BASOPHILS % 0.2 % (0.0-2.0); EOSINOPHILS # 0.3 10^3/ul (0.0-0.5); EOSINOPHILS % 4.3 % (0.0-7.0); HEMATOCRIT 25.6 % (37.0-47.0); HEMOGLOBIN 8.2 g/dl (12.0-16.0); LYMPHOCYTES # 0.7 10^3/ul (0.8-2.9); LYMPHOCYTES % 11.9 % (15.0-51.0); MEAN CORPUSCULAR HEMOGLOBIN 29.9 pg (29.0-33.0); MEAN CORPUSCULAR VOLUME 93.4 fl (82.0-101.0); MEAN PLATELET VOLUME 10.6 fl (7.4-10.4); MONOCYTE # 0.5 10^3/ul (0.3-0.9); MONOCYTES % 8.2 % (0.0-11.0); NEUTROPHIL # 4.5 10^3/ul (1.6-7.5); NEUTROPHILS % 75.1 % (39.0-77.0); PLATELET COUNT 173 10^3/UL (140-415); RED BLOOD COUNT 2.74 10^6/ul (4.20-5.40); RED CELL DISTRIBUTION WIDTH 14.6 % (11.5-14.5)
[2017-07-07 06:58] LABS: CALCIUM 8.4 mg/dl (8.4-10.2); CREATININE 1.65 mg/dl (0.44-1.00); POTASSIUM 3.4 mmol/L (3.5-5.1)
[2017-07-07 06:59] LABS: IRON < 10 ug/dl (35-150)
[2017-07-07 07:05] LABS: TOTAL IRON BINDING CAPACITY 233 ug/dl (241-421)
[2017-07-07] MEDS: FUROSEMIDE 20 MG INJ IV SCH ×2 (07:05→17:51)
[2017-07-07] MEDS: PANTOPRAZOLE (EC) 40 MG TAB PO SCH ×2 (07:06→17:50)
[2017-07-07] MEDS: DILTIAZEM 60 MG TAB GTB SCH ×3 (07:06→22:06)
[2017-07-07] MEDS: INSULIN ASPART [NOVOLOG] 3 ML PEN SC SCH ×4 (07:25→21:00)
--- NOTE | 2017-07-07 08:05 | RADRPT ---
PROCEDURE: XR Chest. CLINICAL INDICATION: Shortness of breath. TECHNIQUE: Single frontal view. COMPARISON: 07/04/2017. FINDINGS: The left arm PICC line is in satisfactory position in the upper superior vena cava. There is atelect asis at the lung bases, unchanged. The lungs are otherwise clear. There are small bilateral pleural effusions. The heart is mildly enlarged. There is no pneumothorax. IMPRESSION: 1. Bibasilar atelectasis, small bilateral pleural effusions, and mild cardiomegaly all unchanged. 2. Left arm PICC line tip now in the upper superior vena cava. 3. No other change from the 07/04/2017 chest radiograph. RPTAT: QQ .Javed Velasquez MD, MD Date Time Electronically viewed and signed by .Javed Velasquez MD, MD on 07/07/2017 08:04 .R/
[2017-07-07] MEDS ORDERED: POTASSIUM CHLORIDE (SR) 20 MEQ TAB PO STA (08:08)
[2017-07-07] MEDS: LEVOTHYROXINE 100 MCG TAB PO SCH (08:30)
[2017-07-07] MEDS: FERROUS SULFATE (EC) 325 MG TAB PO SCH (08:30)
[2017-07-07] MEDS: ENOXAPARIN 60 MG/0.6 ML SYG SC SCH (08:43)
--- NOTE | 2017-07-07 10:56 | CONS ---
Date/Time of Note Date/Time of Note DATE: 07/07/17 TIME: 10:53 Assessment/Plan Assessment/Plan Additional Assessment/Plan Chest x-ray was reviewed which is again showing bibasilar atelectatic changes with small pleural effusions. Assessment and recommendations; 1. Patient admitted with type II respiratory failure with interval improvement on BiPAP. 2. Underlying CHF. 3. Chronic atrial fibrillation. 4. Chronic renal insufficiency. However there is continued improvement in serum creatinine. 5. Diabetes. 6. History of hypothyroidism. 7. Hypertension Continue current supportive care. Consultation Date/Type/Reason Admit Date/Time Jun 14, 2017 at 09:27 Type of Consultation: Pulm Referring Provider: SARAH VINCENT 24 HR Interval Summary Free Text/Dictation Patient's condition is stable. Still requiring BiPAP off and on. Patient however denies any shortness of breath, chest pain. General exam; elderly woman, awake and alert. Currently in no distress. Exam/Review of Systems Vital Signs Vitals Vital Signs Date Time Temp Pulse Resp B/P Pulse Ox O2 Delivery O2 Flow Rate FiO2 07/07/17 08:38 81 07/07/17 08:20 99 2.0 07/07/17 08:18 30 07/07/17 07:38 97.7 19 160/72 07/06/17 20:16 Nasal Cannula Intake and Output 07/06/17 07/06/17 07/07/17 15:00 23:00 07:00 Intake Total 300 ml 400 ml Output Total 1100 ml 800 ml Balance -800 ml -400 ml Exam HEENT exam; supple neck, positive JVD. No lymphadenopathy. Midline trachea. No thyromegaly. No neck masses. Chest exam; diminished breath sound lung bases. Upper lobes are clear to auscultation. S1-S2 audible, no murmurs. Irregular rhythm. Abdomen exam; soft , no organomegaly. Bowel sounds audible. Extremity exam; no edema. [employer] exam; no focal deficit. Results Result Diagram: 07/07/17 0603 07/07/17 0603 Results 24 hrs Laboratory Tests Test 07/06/17 11:39 07/06/17 17:39 07/06/17 20:53 07/07/17 02:31 Bedside Glucose 82 97 82 81 Test 07/07/17 06:03 07/07/17 07:26 White Blood Count 6.0 Red Blood Count 2.74 L Hemoglobin 8.2 L Hematocrit 25.6 L Mean Corpuscular Volume 93.4 Mean Corpuscular Hemoglobin 29.9 Mean Corpuscular Hemoglobin Concent 32.0 Red Cell Distribution Width 14.6 H Platelet Count 173 Mean Platelet Volume 10.6 H Neutrophils % 75.1 Lymphocytes % 11.9 L Monocytes % 8.2 Eosinophils % 4.3 Basophils % 0.2 Nucleated Red Blood Cells % 0.0 Neutrophils # 4.5 Lymphocytes # 0.7 L Monocytes # 0.5 Eosinophils # 0.3 Basophils # 0.0 Nucleated Red Blood Cells # 0.0 Sodium Level 142 Potassium Level 3.4 L Chloride Level 100 Carbon Dioxide Level 35 H Anion Gap 10 Blood Urea Nitrogen 41 H Creatinine 1.65 H Glucose Level 70 Calcium Level 8.4 Iron Level < 10 L Total Iron Binding Capacity 233 L Percent Iron Saturation Bedside Glucose 74 Medications Medications Current Medications Ondansetron HCl (Zofran Inj) 4 mg Q6H PRN IV NAUSEA AND/OR VOMITING Last administered on 06/27/17 21:40; Admin Dose 4 MG; Start 06/13/17 at 15:30 Acetaminophen (Tylenol Tab) 650 mg Q6H PRN PO PAIN LEVEL 1-3 OR FEVER Last administered on 06/24/17 16:33; Admin Dose 650 MG; Start 06/13/17 at 15:30 Docusate Sodium (Colace) 100 mg Q12H PRN PO CONSTIPATION; Start 06/13/17 at 15 :30 Magnesium Hydroxide (Milk Of Mag) 30 ml DAILY PRN PO CONSTIPATION Last administered on 07/02/17 08:51; Admin Dose 30 ML; Start 06/13/17 at 15:30 Hydralazine HCl (Apresoline) 10 mg Q6H PRN IV ELEVATED BLOOD PRESSURE Last administered on 06/25/17 08:43; Admin Dose 10 MG; Start 06/13/17 at 15:30 Nitroglycerin (Nitroglycerin (Sl Tab) 0.4 Mg) 1 tab Q5M PRN SL ANGINA; Start 06/13/17 at 15:30 Atorvastatin Calcium (Lipitor) 10 mg HS PO Last administered on 06/16/17 21: 47; Admin Dose 10 MG; Start 06/13/17 at 21:00; Status Future Hold Levothyroxine Sodium (Synthroid) 100 mcg DAILY PO Last administered on 08:30; Admin Dose 100 MCG; Start 06/14/17 at 09:00 Montelukast Sodium (Singulair) 10 mg QHS PO Last administered on 07/06/17 20: 46; Admin Dose 10 MG; Start 06/13/17 at 21:00 Insulin Glargine (Lantus) 10 unit DAILY@20 SC ; Start 06/14/17 at 20:00; Status Future Hold Diagnostic Test (Pha) (Accu-Chek) 1 ea 02 XX Last administered on 06/24/17 02 :03; Admin Dose 1 EA; Start 06/15/17 at 02:00 Miscellaneous Information 1 ea NOTE XX ; Start 06/14/17 at 06:00 Glucose (Glutose) 15 gm Q15M PRN PO DECREASED GLUCOSE; Start 06/14/17 at 06:00 Glucose (Glutose) 22.5 gm Q15M PRN PO DECREASED GLUCOSE; Start 06/14/17 at 06: 00 Dextrose (D50w Syringe) 25 ml Q15M PRN IV DECREASED GLUCOSE Last administered on 06/17/17 04:41; Admin Dose 25 ML; Start 06/14/17 at 06:00 Dextrose (D50w Syringe) 50 ml Q15M PRN IV DECREASED GLUCOSE; Start 06/14/17 at 06:00 Glucagon (Glucagen) 1 mg Q15M PRN IM DECREASED GLUCOSE; Start 06/14/17 at 06: 00 Glucose (Glutose) 15 gm Q15M PRN BUCCAL DECREASED GLUCOSE; Start 06/14/17 at 06:00 Enoxaparin Sodium (Lovenox) 60 mg DAILY SC Last administered on 07/07/17 08:43 ; Admin Dose 60 MG; Start 06/17/17 at 09:00 IV Flush (NS 10 ml) 10 ml PRN PRN IV IV PROTOCOL; Start 06/16/17 at 14:00 Haloperidol (Haldol) 1 mg Q12 PRN IV agitation Last administered on 06/16/17 21:56; Admin Dose 1 MG; Start 06/16/17 at 20:30 Metoprolol Tartrate (Lopressor) 50 mg BID PO Last administered on 06/23/17 20 :02; Admin Dose 50 MG; Start 06/19/17 at 21:00; Status Future hold Diltiazem HCl (Cardizem) 60 mg Q8 GTB Last administered on 07/07/17 07:06; Admin Dose 60 MG; Start 06/23/17 at 14:00; Status Future hold Hydralazine HCl (Apresoline) 25 mg Q8 PO Last administered on 07/07/17 07:06; Admin Dose 25 MG; Start 06/30/17 at 14:00 Carvedilol (Coreg) 6.25 mg BID PO Last administered on 07/07/17 08:29; Admin Dose 6.25 MG; Start 07/02/17 at 21:00 Pantoprazole (Protonix Tab) 40 mg BID@,18 PO Last administered on 07/07/17 07:06; Admin Dose 40 MG; Start 07/02/17 at 18:00 Ferrous Sulfate (Ferrous Sulfate (Ec)) 325 mg DAILY PO Last administered on 08:30; Admin Dose 325 MG; Start 07/06/17 at 12:00 EN BURNETTE Jul 07, 2017 10:56
--- NOTE | 2017-07-07 11:19 | PN ---
DATE: 07/07/2017 SUBJECTIVE: The patient is feeling better. VITAL SIGNS: Temperature 97.7, pulse 80, respirations 19, blood pressure 160/72, oxygen saturation 91% on FIO2 30%. GENERAL: Well-developed, well-nourished female in no acute distress, lying in bed. CHEST: Decreased breath sounds bilateral bases, otherwise clear. HEART: Regular. ABDOMEN: Soft, nontender, nondistended. EXTREMITIES: No cyanosis, clubbing. There is edema in the upper extremities and lower extremities. NEUROLOGIC: Nonfocal. LABORATORY DATA: Sodium 142, potassium 3.4, chloride 100, bicarbonate 35, BUN of 41, creatinine 1.6 5, calcium 8.4. Iron is less than 10, hemoglobin 8.2, hematocrit 25.6, white blood cell count 6.0, platelets 173. Chest x-ray shows no significant change. ASSESSMENT AND PLAN 1. Acute respiratory failure with hypercapnia. The patient continues to require BiPAP. Continue t o move forward with plans for possible [facility] transfer as patient needs ongoing respiratory care. 2. Acute combined congestive heart failure/atrial fibrillation/hypertension/coronary artery disease , stable. Continue with diuresis and current medications. 3. Diabetes remains stable. Continue meds and diet. 4. Acute on chronic renal insufficiency continues to improve, will continue to monitor. 5. Anemia, remains stable. We will continue to hold off on transfusion. 6. Hypopotassemia. Will replace with 40 mEq of potassium and check magnesium levels and replace as needed. Dictated By: MORGAN SNOW MD SR/NTS Conf#: [id number] DID#: [id number] CC: WEN GOFF MD; SARAH VINCENT MD;*End*
[2017-07-07] MEDS: BALSAM PERU/CASTOR OIL 60 GM TUBE TOP SCH ×2 (16:26→21:00)
[2017-07-07] MEDS: MONTELUKAST 10 MG TAB PO SCH (22:03)
[2017-07-08] VITALS (23 sets, daily range): BP systolic 111–128; BP diastolic 53–66; PULSE 40–95; RESP 17–22
[2017-07-08] MEDS: ACCU-CHEK XX SCH (01:33)
[2017-07-08] MEDS: PANTOPRAZOLE (EC) 40 MG TAB PO SCH ×2 (06:18→17:15)
[2017-07-08] MEDS: DILTIAZEM 60 MG TAB GTB SCH ×3 (06:18→22:05)
[2017-07-08] MEDS: FUROSEMIDE 20 MG INJ IV SCH ×2 (06:19→17:15)
[2017-07-08] MEDS: INSULIN ASPART [NOVOLOG] 3 ML PEN SC SCH ×4 (07:25→20:50)
[2017-07-08] MEDS: FERROUS SULFATE (EC) 325 MG TAB PO SCH (08:28)
[2017-07-08] MEDS: LEVOTHYROXINE 100 MCG TAB PO SCH (08:28)
[2017-07-08] MEDS: BALSAM PERU/CASTOR OIL 60 GM TUBE TOP SCH ×2 (08:29→20:50)
[2017-07-08] MEDS: ENOXAPARIN 60 MG/0.6 ML SYG SC SCH (08:33)
[2017-07-08 08:42] LABS: BASOPHILS % 0.2 % (0.0-2.0); EOSINOPHILS # 0.3 10^3/ul (0.0-0.5); EOSINOPHILS % 5.1 % (0.0-7.0); HEMATOCRIT 25.2 % (37.0-47.0); HEMOGLOBIN 8.2 g/dl (12.0-16.0); LYMPHOCYTES # 0.9 10^3/ul (0.8-2.9); LYMPHOCYTES % 13.1 % (15.0-51.0); MEAN CORPUSCULAR HEMOGLOBIN 30.1 pg (29.0-33.0); MEAN CORPUSCULAR HGB CONC 32.5 g/dl (32.0-37.0); MEAN CORPUSCULAR VOLUME 92.6 fl (82.0-101.0); MEAN PLATELET VOLUME 10.6 fl (7.4-10.4); MONOCYTE # 0.6 10^3/ul (0.3-0.9); MONOCYTES % 8.5 % (0.0-11.0); NEUTROPHIL # 4.7 10^3/ul (1.6-7.5); NEUTROPHILS % 72.6 % (39.0-77.0); PLATELET COUNT 180 10^3/UL (140-415); RED BLOOD COUNT 2.72 10^6/ul (4.20-5.40); RED CELL DISTRIBUTION WIDTH 15.2 % (11.5-14.5); WHITE BLOOD COUNT 6.5 10^3/ul (4.8-10.8)
[2017-07-08 09:07] LABS: ALBUMIN 2.6 g/dl (3.3-4.9); ALBUMIN/GLOBULIN RATIO 0.96; BILIRUBIN,INDIRECT 0.2 mg/dl (0-1.1); BILIRUBIN,TOTAL 0.2 mg/dl (0.2-1.3); CALCIUM 8.6 mg/dl (8.4-10.2); CREATININE 1.46 mg/dl (0.44-1.00); MAGNESIUM 1.6 mg/dl (1.7-2.5); POTASSIUM 3.5 mmol/L (3.5-5.1); TOTAL PROTEIN 5.3 g/dl (6.1-8.1)
--- NOTE | 2017-07-08 10:30 | PN ---
DATE: 07/08/2017 SUBJECTIVE: The patient is feeling better, feeling stronger. OBJECTIVE: VITAL SIGNS: Temperature 97.9, pulse 72 and irregular, respiratory rate 22, blood pressure 111/63, oxygen saturation 99% on 30% FIO2. GENERAL: Well-developed, well-nourished female in no acute distress, lying in bed. CHEST: Clear to auscultation bilaterally, but decreased breath sounds bilateral bases. HEART: Irregular. ABDOMEN: Soft, nontender, nondistended, normoactive bowel sounds. EXTREMITIES: Trace bilateral upper extremity edema, 1+ bilateral lower extremity edema. NEUROLOGIC: Nonfocal. LABORATORY DATA: Pending at the time of this dictation. ASSESSMENT AND PLAN 1. Acute respiratory failure with hypercapnia. The patient continues to be stable and tolerating B iPAP. We will continue with this and improving her overall respiratory care. We will continue to a wait possible [facility] transfer if patient is a candidate. 2. Atrial fibrillation, remains stable and rate is controlled on current medications. We will cont inue with these and adjust as needed. 3. Coronary artery disease/hypertension/acute congestive heart failure combined, continues to be im proved. We will continue with diuresis and adjust medications as needed for blood pressure. 4. Acute on chronic kidney disease, remains improved. We will continue to monitor. 5. Anemia, remains stable. We will continue to monitor, but no need for transfusion at this time. 6. Diabetes, stable. Continue with medications and diet. 7. Hypothyroidism, stable. Continue with medications. Dictated By: MORGAN SNOW MD SR/NTS Conf#: [id number] DID#: [id number] CC: SARAH VINCENT MD;*EndCC*
--- NOTE | 2017-07-08 11:12 | CONS ---
Date/Time of Note Date/Time of Note DATE: 07/08/17 TIME: 11:10 Assessment/Plan Assessment/Plan Additional Assessment/Plan .Hypotension-improved off of pressors/NL EF by echo this admit-now HTN well controlled on current regimen - better now 2. AF with RVR-yesterday apparently had pause 3 seconds and all estrella agents were held- stable overall - will monitor for now - NOW RATE CONTROLLED - will monitor clinically - poor surgical candidate overall 3. Renal failure-ongoing 4. Hypercarbic resp failure s/p extubation-improved - now back on BiPAP intermittency - pulmonary follows 5. Hypothyroid 6. Pleural effusion-s/p thoracentesis - improved Consultation Date/Type/Reason Admit Date/Time Jun 14, 2017 at 09:27 Type of Consultation: Pulm Referring Provider: SARAH VINCENT 24 HR Interval Summary Free Text/Dictation No acute events - rate overall well controlled ROS: No fever, no chills, no nausea, no vomiting, no diarrhea/constipation No recent weight changes No chest pain, no PND, no orthopnea No dizziness, blurred vision No thirst, no heat or cold intolerance Exam/Review of Systems Vital Signs Vitals Vital Signs Date Time Temp Pulse Resp B/P Pulse Ox O2 Delivery O2 Flow Rate FiO2 07/08/17 09:43 70 30 07/08/17 07:19 97.9 22 111/63 07/08/17 05:50 30 07/07/17 22:30 2.0 07/07/17 08:00 Nasal Cannula Intake and Output 07/07/17 07/07/17 07/08/17 15:00 23:00 07:00 Intake Total 200 ml 400 ml Output Total 700 ml 1200 ml Balance -500 ml -800 ml Exam General: WN/WD/NAD, AOx 1-2 BIPAP on HEENT: Unicetric/atraumatic/EOMI (follows commands) NECK: JVD elevated, no thyromegaly Lymph: no lymphadenopathy HEART: regular with no S3, II/ systolic murmur at apex LUNGS: Coarse sounds ABD: soft, NT, ND, +BS : Intact Neuro: non focal SKIN: chronic changes EXT: trace edema Results Result Diagram: 07/08/17 0825 07/08/17 0824 Results 24 hrs Laboratory Tests Test 07/07/17 11:56 07/07/17 17:52 12/4/17 22:02 07/08/17 07:46 Bedside Glucose 82 82 91 81 Test 07/08/17 08:24 07/08/17 08:25 Sodium Level 141 Potassium Level 3.5 Chloride Level 97 Carbon Dioxide Level 38 H Anion Gap 10 Blood Urea Nitrogen 37 H Creatinine 1.46 H Glucose Level 75 Calcium Level 8.6 Magnesium Level 1.6 L Total Bilirubin 0.2 Direct Bilirubin 0.00 Indirect Bilirubin 0.2 Aspartate Amino Transf (AST/SGOT) 22 Alanine Aminotransferase (ALT/SGPT) 38 Alkaline Phosphatase 40 L Total Protein 5.3 L Albumin 2.6 L Globulin 2.70 Albumin/Globulin Ratio 0.96 White Blood Count 6.5 Red Blood Count 2.72 L Hemoglobin 8.2 L Hematocrit 25.2 L Mean Corpuscular Volume 92.6 Mean Corpuscular Hemoglobin 30.1 Mean Corpuscular Hemoglobin Concent 32.5 Red Cell Distribution Width 15.2 H Platelet Count 180 Mean Platelet Volume 10.6 H Neutrophils % 72.6 Lymphocytes % 13.1 L Monocytes % 8.5 Eosinophils % 5.1 Basophils % 0.2 Nucleated Red Blood Cells % 0.0 Neutrophils # 4.7 Lymphocytes # 0.9 Monocytes # 0.6 Eosinophils # 0.3 Basophils # 0.0 Nucleated Red Blood Cells # 0.0 Medications Medications Current Medications Ondansetron HCl (Zofran Inj) 4 mg Q6H PRN IV NAUSEA AND/OR VOMITING Last administered on 06/27/17 21:40; Admin Dose 4 MG; Start 06/13/17 at 15:30 Acetaminophen (Tylenol Tab) 650 mg Q6H PRN PO PAIN LEVEL 1-3 OR FEVER Last administered on 06/24/17 16:33; Admin Dose 650 MG; Start 06/13/17 at 15:30 Docusate Sodium (Colace) 100 mg Q12H PRN PO CONSTIPATION; Start 06/13/17 at 15 :30 Magnesium Hydroxide (Milk Of Mag) 30 ml DAILY PRN PO CONSTIPATION Last administered on 07/02/17 08:51; Admin Dose 30 ML; Start 06/13/17 at 15:30 Hydralazine HCl (Apresoline) 10 mg Q6H PRN IV ELEVATED BLOOD PRESSURE Last administered on 06/25/17 08:43; Admin Dose 10 MG; Start 06/13/17 at 15:30 Nitroglycerin (Nitroglycerin (Sl Tab) 0.4 Mg) 1 tab Q5M PRN SL ANGINA; Start 06/13/17 at 15:30 Atorvastatin Calcium (Lipitor) 10 mg HS PO Last administered on 06/16/17 21: 47; Admin Dose 10 MG; Start 06/13/17 at 21:00; Status Future Hold Levothyroxine Sodium (Synthroid) 100 mcg DAILY PO Last administered on 08:28; Admin Dose 100 MCG; Start 06/14/17 at 09:00 Montelukast Sodium (Singulair) 10 mg QHS PO Last administered on 07/07/17 22: 03; Admin Dose 10 MG; Start 06/13/17 at 21:00 Insulin Glargine (Lantus) 10 unit DAILY@20 SC ; Start 06/14/17 at 20:00; Status Future Hold Diagnostic Test (Pha) (Accu-Chek) 1 ea 02 XX Last administered on 06/24/17 02 :03; Admin Dose 1 EA; Start 06/15/17 at 02:00 Miscellaneous Information 1 ea NOTE XX ; Start 06/14/17 at 06:00 Glucose (Glutose) 15 gm Q15M PRN PO DECREASED GLUCOSE; Start 06/14/17 at 06:00 Glucose (Glutose) 22.5 gm Q15M PRN PO DECREASED GLUCOSE; Start 06/14/17 at 06: 00 Dextrose (D50w Syringe) 25 ml Q15M PRN IV DECREASED GLUCOSE Last administered on 06/17/17 04:41; Admin Dose 25 ML; Start 06/14/17 at 06:00 Dextrose (D50w Syringe) 50 ml Q15M PRN IV DECREASED GLUCOSE; Start 06/14/17 at 06:00 Glucagon (Glucagen) 1 mg Q15M PRN IM DECREASED GLUCOSE; Start 06/14/17 at 06: 00 Glucose (Glutose) 15 gm Q15M PRN BUCCAL DECREASED GLUCOSE; Start 06/14/17 at 06:00 Enoxaparin Sodium (Lovenox) 60 mg DAILY SC Last administered on 07/08/17 08:33 ; Admin Dose 60 MG; Start 06/17/17 at 09:00 IV Flush (NS 10 ml) 10 ml PRN PRN IV IV PROTOCOL; Start 06/16/17 at 14:00 Haloperidol (Haldol) 1 mg Q12 PRN IV agitation Last administered on 06/16/17 21:56; Admin Dose 1 MG; Start 06/16/17 at 20:30 Metoprolol Tartrate (Lopressor) 50 mg BID PO Last administered on 06/23/17 20 :02; Admin Dose 50 MG; Start 06/19/17 at 21:00; Status Future hold Diltiazem HCl (Cardizem) 60 mg Q8 GTB Last administered on 07/08/17 06:18; Admin Dose 60 MG; Start 06/23/17 at 14:00; Status Future hold Hydralazine HCl (Apresoline) 25 mg Q8 PO Last administered on 07/08/17 06:18; Admin Dose 25 MG; Start 06/30/17 at 14:00 Carvedilol (Coreg) 6.25 mg BID PO Last administered on 07/08/17 08:29; Admin Dose 6.25 MG; Start 07/02/17 at 21:00 Pantoprazole (Protonix Tab) 40 mg BID@,18 PO Last administered on 07/08/17 06:18; Admin Dose 40 MG; Start 07/02/17 at 18:00 Ferrous Sulfate (Ferrous Sulfate (Ec)) 325 mg DAILY PO Last administered on 08:28; Admin Dose 325 MG; Start 07/06/17 at 12:00 LILIAN ABEBE MD Jul 08, 2017 11:12
--- NOTE | 2017-07-08 11:39 | CONS ---
Date/Time of Note Date/Time of Note DATE: 07/08/17 TIME: 11:38 Consult Date/Type/Reason Admit Date/Time Jun 14, 2017 at 09:27 Type of Consultation: Pulm Ordering Provider: SARAH VINCENT Subjective Pulmonary status remains relatively stable. Placed on BiPAP again this morning. Having PT. Objective Vital Signs Date Time Temp Pulse Resp B/P Pulse Ox O2 Delivery O2 Flow Rate FiO2 07/08/17 11:28 98.0 76 22 126/56 98 07/08/17 05:50 30 07/07/17 22:30 2.0 07/07/17 08:00 Nasal Cannula Intake and Output 07/07/17 07/07/17 07/08/17 15:00 23:00 07:00 Intake Total 200 ml 400 ml Output Total 700 ml 1200 ml Balance -500 ml -800 ml Exam GENERAL: Elderly lady appears comfortable at rest on BiPAP. VITAL SIGNS: per chart NECK: Supple. No JVD or lymphadenopathy. CARDIAC EXAM: S1, S2. No added sounds or murmurs. CHEST: clear bilaterally, No added sounds, rales or wheezes ABDOMEN: Soft, nontender. No guarding or rebound. EXTREMITIES: No cyanosis, clubbing or edema. NEUROLOGIC: Generalized weakness. Results/Medications Result Diagram: 07/08/17 0825 07/08/17 0824 Results 24 hrs Laboratory Tests Test 07/07/17 11:56 07/07/17 17:52 07/07/17 22:02 07/08/17 07:46 Bedside Glucose 82 82 91 81 Test 07/08/17 08:24 07/08/17 08:25 Sodium Level 141 Potassium Level 3.5 Chloride Level 97 Carbon Dioxide Level 38 H Anion Gap 10 Blood Urea Nitrogen 37 H Creatinine 1.46 H Glucose Level 75 Calcium Level 8.6 Magnesium Level 1.6 L Total Bilirubin 0.2 Direct Bilirubin 0.00 Indirect Bilirubin 0.2 Aspartate Amino Transf (AST/SGOT) 22 Alanine Aminotransferase (ALT/SGPT) 38 Alkaline Phosphatase 40 L Total Protein 5.3 L Albumin 2.6 L Globulin 2.70 Albumin/Globulin Ratio 0.96 White Blood Count 6.5 Red Blood Count 2.72 L Hemoglobin 8.2 L Hematocrit 25.2 L Mean Corpuscular Volume 92.6 Mean Corpuscular Hemoglobin 30.1 Mean Corpuscular Hemoglobin Concent 32.5 Red Cell Distribution Width 15.2 H Platelet Count 180 Mean Platelet Volume 10.6 H Neutrophils % 72.6 Lymphocytes % 13.1 L Monocytes % 8.5 Eosinophils % 5.1 Basophils % 0.2 Nucleated Red Blood Cells % 0.0 Neutrophils # 4.7 Lymphocytes # 0.9 Monocytes # 0.6 Eosinophils # 0.3 Basophils # 0.0 Nucleated Red Blood Cells # 0.0 Medications Current Medications Ondansetron HCl (Zofran Inj) 4 mg Q6H PRN IV NAUSEA AND/OR VOMITING Last administered on 06/27/17 21:40; Admin Dose 4 MG; Start 06/13/17 at 15:30 Acetaminophen (Tylenol Tab) 650 mg Q6H PRN PO PAIN LEVEL 1-3 OR FEVER Last administered on 06/24/17 16:33; Admin Dose 650 MG; Start 06/13/17 at 15:30 Docusate Sodium (Colace) 100 mg Q12H PRN PO CONSTIPATION; Start 06/13/17 at 15 :30 Magnesium Hydroxide (Milk Of Mag) 30 ml DAILY PRN PO CONSTIPATION Last administered on 07/02/17 08:51; Admin Dose 30 ML; Start 06/13/17 at 15:30 Hydralazine HCl (Apresoline) 10 mg Q6H PRN IV ELEVATED BLOOD PRESSURE Last administered on 06/25/17 08:43; Admin Dose 10 MG; Start 06/13/17 at 15:30 Nitroglycerin (Nitroglycerin (Sl Tab) 0.4 Mg) 1 tab Q5M PRN SL ANGINA; Start 06/13/17 at 15:30 Atorvastatin Calcium (Lipitor) 10 mg HS PO Last administered on 06/16/17 21: 47; Admin Dose 10 MG; Start 06/13/17 at 21:00; Status Future Hold Levothyroxine Sodium (Synthroid) 100 mcg DAILY PO Last administered on 08:28; Admin Dose 100 MCG; Start 06/14/17 at 09:00 Montelukast Sodium (Singulair) 10 mg QHS PO Last administered on 07/07/17 22: 03; Admin Dose 10 MG; Start 06/13/17 at 21:00 Insulin Glargine (Lantus) 10 unit DAILY@20 SC ; Start 06/14/17 at 20:00; Status Future Hold Diagnostic Test (Pha) (Accu-Chek) 1 ea 02 XX Last administered on 06/24/17 02 :03; Admin Dose 1 EA; Start 06/15/17 at 02:00 Miscellaneous Information 1 ea NOTE XX ; Start 06/14/17 at 06:00 Glucose (Glutose) 15 gm Q15M PRN PO DECREASED GLUCOSE; Start 06/14/17 at 06:00 Glucose (Glutose) 22.5 gm Q15M PRN PO DECREASED GLUCOSE; Start 06/14/17 at 06: 00 Dextrose (D50w Syringe) 25 ml Q15M PRN IV DECREASED GLUCOSE Last administered on 06/17/17 04:41; Admin Dose 25 ML; Start 06/14/17 at 06:00 Dextrose (D50w Syringe) 50 ml Q15M PRN IV DECREASED GLUCOSE; Start 06/14/17 at 06:00 Glucagon (Glucagen) 1 mg Q15M PRN IM DECREASED GLUCOSE; Start 06/14/17 at 06: 00 Glucose (Glutose) 15 gm Q15M PRN BUCCAL DECREASED GLUCOSE; Start 06/14/17 at 06:00 Enoxaparin Sodium (Lovenox) 60 mg DAILY SC Last administered on 07/08/17 08:33 ; Admin Dose 60 MG; Start 06/17/17 at 09:00 IV Flush (NS 10 ml) 10 ml PRN PRN IV IV PROTOCOL; Start 06/16/17 at 14:00 Haloperidol (Haldol) 1 mg Q12 PRN IV agitation Last administered on 06/16/17 21:56; Admin Dose 1 MG; Start 06/16/17 at 20:30 Metoprolol Tartrate (Lopressor) 50 mg BID PO Last administered on 06/23/17 20 :02; Admin Dose 50 MG; Start 06/19/17 at 21:00; Status Future hold Diltiazem HCl (Cardizem) 60 mg Q8 GTB Last administered on 07/08/17 06:18; Admin Dose 60 MG; Start 06/23/17 at 14:00; Status Future hold Hydralazine HCl (Apresoline) 25 mg Q8 PO Last administered on 07/08/17 06:18; Admin Dose 25 MG; Start 06/30/17 at 14:00 Carvedilol (Coreg) 6.25 mg BID PO Last administered on 07/08/17 08:29; Admin Dose 6.25 MG; Start 07/02/17 at 21:00 Pantoprazole (Protonix Tab) 40 mg BID@,18 PO Last administered on 07/08/17 06:18; Admin Dose 40 MG; Start 07/02/17 at 18:00 Ferrous Sulfate (Ferrous Sulfate (Ec)) 325 mg DAILY PO Last administered on 08:28; Admin Dose 325 MG; Start 07/06/17 at 12:00 Assessment/Plan Chief Complaint/Hosp Course IMPRESSION: 1. Acute hypercapnic respiratory failure, placed back on BiPAP this morning. 2. History of hypertension. 3. Atrial fibrillation with rapid ventricular rate. Currently rate controlled 4. Diabetes mellitus. 5. Status post shock. 6. Renal insufficiency. Plan 1. Continue BiPAP at night. As needed. 2. Rate control per cardiology. 3. Avoid sedation. 4. Deep venous thrombosis and gastrointestinal prophylaxis. 5. Aspiration precautions. 6. Physical therapy. Problems: YAZMIN VARGAS MD, [facility] Jul 08, 2017 11:39
[2017-07-08] MEDS: MONTELUKAST 10 MG TAB PO SCH (20:49)
[2017-07-09] VITALS (14 sets, daily range): BP systolic 112–141; BP diastolic 57–70; PULSE 61–87; RESP 20–23
[2017-07-09] MEDS: ACCU-CHEK XX SCH (02:00)
[2017-07-09] MEDS: PANTOPRAZOLE (EC) 40 MG TAB PO SCH ×2 (05:41→17:15)
[2017-07-09] MEDS: FUROSEMIDE 20 MG INJ IV SCH ×2 (05:42→17:15)
[2017-07-09] MEDS: DILTIAZEM 60 MG TAB GTB SCH ×3 (05:42→22:03)
[2017-07-09] MEDS: INSULIN ASPART [NOVOLOG] 3 ML PEN SC SCH ×4 (07:25→20:20)
[2017-07-09] MEDS ORDERED: MAGNESIUM SULFATE 2 GM/50 ML 50 ML IVPB ONE (08:00)
[2017-07-09] MEDS: LEVOTHYROXINE 100 MCG TAB PO SCH (08:24)
[2017-07-09] MEDS: FERROUS SULFATE (EC) 325 MG TAB PO SCH (08:25)
[2017-07-09] MEDS: BALSAM PERU/CASTOR OIL 60 GM TUBE TOP SCH ×2 (08:30→20:21)
[2017-07-09] MEDS: ENOXAPARIN 60 MG/0.6 ML SYG SC SCH (09:02)
[2017-07-09 09:10] LABS: EOSINOPHILS # 0.3 10^3/ul (0.0-0.5); EOSINOPHILS % 5.3 % (0.0-7.0); HEMATOCRIT 25.2 % (37.0-47.0); LYMPHOCYTES # 1.1 10^3/ul (0.8-2.9); LYMPHOCYTES % 16.7 % (15.0-51.0); MEAN CORPUSCULAR HEMOGLOBIN 29.5 pg (29.0-33.0); MEAN CORPUSCULAR HGB CONC 31.7 g/dl (32.0-37.0); MEAN PLATELET VOLUME 10.6 fl (7.4-10.4); MONOCYTE # 0.6 10^3/ul (0.3-0.9); MONOCYTES % 9.3 % (0.0-11.0); NEUTROPHIL # 4.4 10^3/ul (1.6-7.5); NEUTROPHILS % 68.4 % (39.0-77.0); PLATELET COUNT 173 10^3/UL (140-415); RED BLOOD COUNT 2.71 10^6/ul (4.20-5.40); RED CELL DISTRIBUTION WIDTH 15.1 % (11.5-14.5); WHITE BLOOD COUNT 6.4 10^3/ul (4.8-10.8)
[2017-07-09 09:25] LABS: ALBUMIN 2.6 g/dl (3.3-4.9); BILIRUBIN,INDIRECT 0.2 mg/dl (0-1.1); BILIRUBIN,TOTAL 0.2 mg/dl (0.2-1.3); CALCIUM 8.5 mg/dl (8.4-10.2); CREATININE 1.52 mg/dl (0.44-1.00); MAGNESIUM 1.5 mg/dl (1.7-2.5); POTASSIUM 3.2 mmol/L (3.5-5.1); TOTAL PROTEIN 5.2 g/dl (6.1-8.1)
--- NOTE | 2017-07-09 10:00 | PN ---
DATE: 07/09/2017 SUBJECTIVE: The patient is without complaint, feeling stronger. OBJECTIVE: VITAL SIGNS: Temperature 97.9, pulse 63 and regular, respirations 20, blood pressure 141/65, oxygen saturation 99% on FIO2 30% BiPAP. GENERAL: Well-developed, well-nourished female in no acute distress, lying in bed with a BiPAP mask . CHEST: Clear to auscultation bilaterally except for decreased breath sounds bilateral bases. HEART: Irregularly irregular. ABDOMEN: Soft, nontender, nondistended. NEUROLOGIC: Nonfocal. EXTREMITIES: Trace edema bilateral upper extremities, 1+ bilateral lower extremity edema. LABORATORY DATA: Pending at the time of this dictation, except for magnesium levels yesterday were 1.6, creatinine of 1.46, hematocrit of 25.2. ASSESSMENT AND PLAN 1. Acute respiratory failure with hypercapnia. The patient remains stable and tolerating BiPAP mas k. We will continue with current treatment plan and await [facility] consultation for possible transfer to [place]. 2. Atrial fibrillation. Remains controlled on current medications with mild lability. We will con tinue to adjust as necessary. 3. Coronary artery disease/acute combined congestive heart/hypertension. Remains stable. Continue with diuresis and medications. 4. Diabetes, stable. Continue with medications and diet. 5. Anemia, remains stable. We will explore whether or not the patient's family can donate blood to [place] and have the patient transfused 2 units of blood. 6. Acute on chronic kidney disease. Continues to improve. We will continue to monitor. 7. Hypomagnesemia. We will replace with 2 grams of the IV magnesium sulfate. Dictated By: MORGAN SNOW MD, SR/NTS Conf#: [id number] DID#: [id number]
--- NOTE | 2017-07-09 10:17 | CONS ---
Date/Time of Note Date/Time of Note DATE: 07/09/17 TIME: 10:15 Assessment/Plan Assessment/Plan Additional Assessment/Plan Assessment and recommendations; 1. Patient admitted with septic shock due to UTI with marked overall clinical improvement. Off antibiotics now. 2. Hypercapnia with interval improvement as well. On intermittent BiPAP. Next 3. Mild anemia and thrombocytopenia. 4. Chronic atrial fibrillation. 5. Chronic mild renal insufficiency. 6. History of hypertension, diabetes and compensated CHF. 7. History of hypothyroidism. Continue current treatment. Obtain ABG on 2 L nasal cannula. Consultation Date/Type/Reason Admit Date/Time Jun 14, 2017 at 09:27 Type of Consultation: Pulm Referring Provider: SARAH VINCENT 24 HR Interval Summary Free Text/Dictation Patient's condition is stable. Remains completely awake and alert. Has been weaned down to nasal cannula. Requiring intermittent BiPAP. General exam; elderly female, awake alert, currently in no distress. Exam/Review of Systems Vital Signs Vitals Vital Signs Date Time Temp Pulse Resp B/P Pulse Ox O2 Delivery O2 Flow Rate FiO2 07/09/17 08:19 99.0 67 23 112/64 98 07/09/17 05:26 30 07/08/17 20:00 Nasal Cannula 2.0 Intake and Output 07/08/17 07/08/17 07/09/17 14:59 22:59 06:59 Intake Total 600 ml 500 ml Output Total 650 ml 1100 ml Balance -50 ml -600 ml Exam HEENT exam; supple neck, no JVD. No lymphadenopathy. Midline trachea. No thyromegaly. Patient has fair dentition. Has bilateral intraocular lens implants. Chest exam; diminished but clear breath sounds. S1-S2 audible, no murmurs. Irregular rhythm. Abdomen exam; soft, nontender. Nondistended. No organomegaly. Bowel sounds audible. Extremity exam; no edema. Patient does have vitiligo involving upper extremities. SHANK PINNER exam; no focal deficit. Results Result Diagram: 07/09/17 0840 07/09/17 0840 Results 24 hrs Laboratory Tests Test 07/08/17 11:44 07/08/17 17:00 07/08/17 20:47 07/09/17 08:28 Bedside Glucose 92 103 105 89 Test 07/09/17 08:40 White Blood Count 6.4 Red Blood Count 2.71 L Hemoglobin 8.0 L Hematocrit 25.2 L Mean Corpuscular Volume 93.0 Mean Corpuscular Hemoglobin 29.5 Mean Corpuscular Hemoglobin Concent 31.7 L Red Cell Distribution Width 15.1 H Platelet Count 173 Mean Platelet Volume 10.6 H Neutrophils % 68.4 Lymphocytes % 16.7 Monocytes % 9.3 Eosinophils % 5.3 Basophils % 0.0 Nucleated Red Blood Cells % 0.0 Neutrophils # 4.4 Lymphocytes # 1.1 Monocytes # 0.6 Eosinophils # 0.3 Basophils # 0.0 Nucleated Red Blood Cells # 0.0 Sodium Level 139 Potassium Level 3.2 L Chloride Level 95 L Carbon Dioxide Level 42 *H Anion Gap 5 L Blood Urea Nitrogen 34 H Creatinine 1.52 H Glucose Level 81 Calcium Level 8.5 Magnesium Level 1.5 L Total Bilirubin 0.2 Direct Bilirubin 0.00 Indirect Bilirubin 0.2 Aspartate Amino Transf (AST/SGOT) 22 Alanine Aminotransferase (ALT/SGPT) 36 Alkaline Phosphatase 42 Total Protein 5.2 L Albumin 2.6 L Globulin 2.60 Albumin/Globulin Ratio 1.00 Medications Medications Current Medications Ondansetron HCl (Zofran Inj) 4 mg Q6H PRN IV NAUSEA AND/OR VOMITING Last administered on 06/27/17 21:40; Admin Dose 4 MG; Start 06/13/17 at 15:30 Acetaminophen (Tylenol Tab) 650 mg Q6H PRN PO PAIN LEVEL 1-3 OR FEVER Last administered on 06/24/17 16:33; Admin Dose 650 MG; Start 06/13/17 at 15:30 Docusate Sodium (Colace) 100 mg Q12H PRN PO CONSTIPATION; Start 06/13/17 at 15 :30 Magnesium Hydroxide (Milk Of Mag) 30 ml DAILY PRN PO CONSTIPATION Last administered on 07/02/17 08:51; Admin Dose 30 ML; Start 06/13/17 at 15:30 Hydralazine HCl (Apresoline) 10 mg Q6H PRN IV ELEVATED BLOOD PRESSURE Last administered on 06/25/17 08:43; Admin Dose 10 MG; Start 06/13/17 at 15:30 Nitroglycerin (Nitroglycerin (Sl Tab) 0.4 Mg) 1 tab Q5M PRN SL ANGINA; Start 06/13/17 at 15:30 Atorvastatin Calcium (Lipitor) 10 mg HS PO Last administered on 06/16/17 21: 47; Admin Dose 10 MG; Start 06/13/17 at 21:00; Status Future Hold Levothyroxine Sodium (Synthroid) 100 mcg DAILY PO Last administered on 08:24; Admin Dose 100 MCG; Start 06/14/17 at 09:00 Montelukast Sodium (Singulair) 10 mg QHS PO Last administered on 07/08/17 20: 49; Admin Dose 10 MG; Start 06/13/17 at 21:00 Insulin Glargine (Lantus) 10 unit DAILY@20 SC ; Start 06/14/17 at 20:00; Status Future Hold Diagnostic Test (Pha) (Accu-Chek) 1 ea 02 XX Last administered on 06/24/17 02 :03; Admin Dose 1 EA; Start 06/15/17 at 02:00 Miscellaneous Information 1 ea NOTE XX ; Start 06/14/17 at 06:00 Glucose (Glutose) 15 gm Q15M PRN PO DECREASED GLUCOSE; Start 06/14/17 at 06:00 Glucose (Glutose) 22.5 gm Q15M PRN PO DECREASED GLUCOSE; Start 06/14/17 at 06: 00 Dextrose (D50w Syringe) 25 ml Q15M PRN IV DECREASED GLUCOSE Last administered on 06/17/17 04:41; Admin Dose 25 ML; Start 06/14/17 at 06:00 Dextrose (D50w Syringe) 50 ml Q15M PRN IV DECREASED GLUCOSE; Start 06/14/17 at 06:00 Glucagon (Glucagen) 1 mg Q15M PRN IM DECREASED GLUCOSE; Start 06/14/17 at 06: 00 Glucose (Glutose) 15 gm Q15M PRN BUCCAL DECREASED GLUCOSE; Start 06/14/17 at 06:00 Enoxaparin Sodium (Lovenox) 60 mg DAILY SC Last administered on 07/09/17 09:02 ; Admin Dose 60 MG; Start 06/17/17 at 09:00 IV Flush (NS 10 ml) 10 ml PRN PRN IV IV PROTOCOL; Start 06/16/17 at 14:00 Haloperidol (Haldol) 1 mg Q12 PRN IV agitation Last administered on 06/16/17 21:56; Admin Dose 1 MG; Start 11/13/17 at 20:30 Metoprolol Tartrate (Lopressor) 50 mg BID PO Last administered on 06/23/17 20 :02; Admin Dose 50 MG; Start 06/19/17 at 21:00; Status Future hold Diltiazem HCl (Cardizem) 60 mg Q8 GTB Last administered on 07/09/17 05:42; Admin Dose 60 MG; Start 06/23/17 at 14:00; Status Future hold Hydralazine HCl (Apresoline) 25 mg Q8 PO Last administered on 07/09/17 05:41; Admin Dose 25 MG; Start 06/30/17 at 14:00 Carvedilol (Coreg) 6.25 mg BID PO Last administered on 07/09/17 08:25; Admin Dose 6.25 MG; Start 07/02/17 at 21:00 Pantoprazole (Protonix Tab) 40 mg BID@,18 PO Last administered on 07/09/17 05:41; Admin Dose 40 MG; Start 07/02/17 at 18:00 Ferrous Sulfate (Ferrous Sulfate (Ec)) 325 mg DAILY PO Last administered on 08:25; Admin Dose 325 MG; Start 07/06/17 at 12:00 EN BURNETTE Jul 09, 2017 10:17
[2017-07-09 11:08] LABS: AADO2 Arterial 57.9 mmHg (7.0-24.0); Allen Test ACCEPTAB; Arterial Base Excess 12.9 mmol/L (-3.0-3); Arterial COHb 0.3 % (0.0-3.0); Arterial Fraction of Oxyhgb 96.4 % (93.0-99.0); Arterial HCO3 37.8 mmol/L (22.0-26.0); Arterial MetHb 0.4 % (0.0-1.5); Arterial Total Hemglobin 9.3 g/dl (12.0-18.0); Blood Gas IEPAP 22/8; MODE MASK - BIPAP
--- NOTE | 2017-07-09 11:49 | CONS ---
Date/Time of Note Date/Time of Note DATE: 07/09/17 TIME: 11:45 Assessment/Plan Assessment/Plan Chief Complaint/Hosp Course IMP: 1.Hypotension-improved off of pressors/NL EF by echo this admit-now HTN which is well controlled 2. AF with RVR-yesterday apparently had pause 3 seconds and all estrella agents were held- now on coreg/dilt with good heart rates and no sig eren or pause 3. Renal failure-ongoing but slowly improving 4. Hypercarbic resp failure s/p extubation-improved with BIPAP at night 5. Hypothyroid 6. PLeural effusion-s/p thoracentesis 7. Anemia-ongoing Recc: -Tele -serial ecg's -Continue lasix diuresis -Continue lovenox QD as tolerated given anemia -Hold asa given anemia -Follow HR/BP/volume status closely -Continue BB/CCB and follow HR clsoely -Continue hydralazine as well with well controlled BP -PT/OT Problems: Consultation Date/Type/Reason Admit Date/Time Jun 14, 2017 at 09:27 Initial Consult Date 06/15/17 Type of Consultation: cardiology Reason for Consultation AF Referring Provider: SARAH VINCENT Exam/Review of Systems Vital Signs Vitals Vital Signs Date Time Temp Pulse Resp B/P Pulse Ox O2 Delivery O2 Flow Rate FiO2 07/09/17 11:41 98.2 78 20 127/64 98 07/09/17 05:26 30 07/08/17 20:00 Nasal Cannula 2.0 Intake and Output 07/08/17 07/08/17 07/09/17 15:00 23:00 07:00 Intake Total 600 ml 500 ml Output Total 650 ml 1100 ml Balance -50 ml -600 ml Exam Review of Systems: CONSTITUTIONAL: No fevers, chills. PULMONARY: No sob CARDIOVASCULAR: No chest pain/palpitations GASTROINTESTINAL: No nausea/vomiting. GENITOURINARY: No hematuria/dysuria. MUSCULOSKELETAL: No myagias/arthalgias. PSYCHIATRIC: The patient denies depression. NEUROLOGIC: No weakness Constitutional: alert, oriented Psych: no complaints ENMT: mucosa pink and moist Neck: jvd (9 cm water), supple Respiratory: diminished breath sounds (at bases/B) Cardiovascular: regular rate and rhythm Gastrointestinal: non-tender, soft Musculoskeletal: muscle tone (normal) Extremities: edema (none) Neurological: lethargic Results Result Diagram: 07/09/17 0840 07/09/17 0840 Results 24 hrs Laboratory Tests Test 07/08/17 17:00 07/08/17 20:47 07/09/17 08:28 07/09/17 08:40 Bedside Glucose 103 105 89 White Blood Count 6.4 Red Blood Count 2.71 L Hemoglobin 8.0 L Hematocrit 25.2 L Mean Corpuscular Volume 93.0 Mean Corpuscular Hemoglobin 29.5 Mean Corpuscular Hemoglobin Concent 31.7 L Red Cell Distribution Width 15.1 H Platelet Count 173 Mean Platelet Volume 10.6 H Neutrophils % 68.4 Lymphocytes % 16.7 Monocytes % 9.3 Eosinophils % 5.3 Basophils % 0.0 Nucleated Red Blood Cells % 0.0 Neutrophils # 4.4 Lymphocytes # 1.1 Monocytes # 0.6 Eosinophils # 0.3 Basophils # 0.0 Nucleated Red Blood Cells # 0.0 Sodium Level 139 Potassium Level 3.2 L Chloride Level 95 L Carbon Dioxide Level 42 *H Anion Gap 5 L Blood Urea Nitrogen 34 H Creatinine 1.52 H Glucose Level 81 Calcium Level 8.5 Magnesium Level 1.5 L Total Bilirubin 0.2 Direct Bilirubin 0.00 Indirect Bilirubin 0.2 Aspartate Amino Transf (AST/SGOT) 22 Alanine Aminotransferase (ALT/SGPT) 36 Alkaline Phosphatase 42 Total Protein 5.2 L Albumin 2.6 L Globulin 2.60 Albumin/Globulin Ratio 1.00 Test 07/09/17 10:14 Blood Gas Specimen Source Blood arterial Arterial Blood Date Drawn 07/09/2017 11:00:15 AM Arterial Blood pH (Temp corrected) 7.490 H Arterial Blood pCO2 (Temp correct) 50.7 H Arterial Blood pO2 (Temp corrected) 96.4 H Arterial Blood HCO3 37.8 H Arterial Blood Base Excess 12.9 H Arterial Blood Oxygen Saturation 97.1 [place] Test ACCEPTAB Arterial Blood Gas Puncture Site Right Radial Arterial Blood Carboxyhemoglobin 0.3 Arterial Blood Methemoglobin 0.4 Blood Gas A-a O2 Differential 57.9 H Oxyhemoglobin Percent 96.4 Total Hemoglobin 9.3 L Blood Gas Temperature 37.0 Blood Gas Respiration Rate 22.0 Blood Gas Actual Respiration Rate 23 Blood Gas Modality MASK - BIPAP FiO2 30.0 Blood Gas IPAP/EPAP Ratio 22/8 Blood Gas Notified Whom JLD Blood Gas Notified Time 07/09/2017 11:07:58 AM Medications Medications Current Medications Ondansetron HCl (Zofran Inj) 4 mg Q6H PRN IV NAUSEA AND/OR VOMITING Last administered on 06/27/17 21:40; Admin Dose 4 MG; Start 06/13/17 at 15:30 Acetaminophen (Tylenol Tab) 650 mg Q6H PRN PO PAIN LEVEL 1-3 OR FEVER Last administered on 06/24/17 16:33; Admin Dose 650 MG; Start 06/13/17 at 15:30 Docusate Sodium (Colace) 100 mg Q12H PRN PO CONSTIPATION; Start 06/13/17 at 15 :30 Magnesium Hydroxide (Milk Of Mag) 30 ml DAILY PRN PO CONSTIPATION Last administered on 07/02/17 08:51; Admin Dose 30 ML; Start 06/13/17 at 15:30 Hydralazine HCl (Apresoline) 10 mg Q6H PRN IV ELEVATED BLOOD PRESSURE Last administered on 06/25/17 08:43; Admin Dose 10 MG; Start 06/13/17 at 15:30 Nitroglycerin (Nitroglycerin (Sl Tab) 0.4 Mg) 1 tab Q5M PRN SL ANGINA; Start 06/13/17 at 15:30 Atorvastatin Calcium (Lipitor) 10 mg HS PO Last administered on 06/16/17 21: 47; Admin Dose 10 MG; Start 06/13/17 at 21:00; Status Future Hold Levothyroxine Sodium (Synthroid) 100 mcg DAILY PO Last administered on 08:24; Admin Dose 100 MCG; Start 06/14/17 at 09:00 Montelukast Sodium (Singulair) 10 mg QHS PO Last administered on 07/08/17 20: 49; Admin Dose 10 MG; Start 06/13/17 at 21:00 Insulin Glargine (Lantus) 10 unit DAILY@20 SC ; Start 06/14/17 at 20:00; Status Future Hold Diagnostic Test (Pha) (Accu-Chek) 1 ea 02 XX Last administered on 06/24/17 02 :03; Admin Dose 1 EA; Start 06/15/17 at 02:00 Miscellaneous Information 1 ea NOTE XX ; Start 06/14/17 at 06:00 Glucose (Glutose) 15 gm Q15M PRN PO DECREASED GLUCOSE; Start 06/14/17 at 06:00 Glucose (Glutose) 22.5 gm Q15M PRN PO DECREASED GLUCOSE; Start 06/14/17 at 06: 00 Dextrose (D50w Syringe) 25 ml Q15M PRN IV DECREASED GLUCOSE Last administered on 06/17/17 04:41; Admin Dose 25 ML; Start 06/14/17 at 06:00 Dextrose (D50w Syringe) 50 ml Q15M PRN IV DECREASED GLUCOSE; Start 06/14/17 at 06:00 Glucagon (Glucagen) 1 mg Q15M PRN IM DECREASED GLUCOSE; Start 06/14/17 at 06: 00 Glucose (Glutose) 15 gm Q15M PRN BUCCAL DECREASED GLUCOSE; Start 06/14/17 at 06:00 Enoxaparin Sodium (Lovenox) 60 mg DAILY SC Last administered on 07/09/17 09:02 ; Admin Dose 60 MG; Start 06/17/17 at 09:00 IV Flush (NS 10 ml) 10 ml PRN PRN IV IV PROTOCOL; Start 06/16/17 at 14:00 Haloperidol (Haldol) 1 mg Q12 PRN IV agitation Last administered on 06/16/17 21:56; Admin Dose 1 MG; Start 06/16/17 at 20:30 Metoprolol Tartrate (Lopressor) 50 mg BID PO Last administered on 06/23/17 20 :02; Admin Dose 50 MG; Start 06/19/17 at 21:00; Status Future hold Diltiazem HCl (Cardizem) 60 mg Q8 GTB Last administered on 07/09/17 05:42; Admin Dose 60 MG; Start 06/23/17 at 14:00; Status Future hold Hydralazine HCl (Apresoline) 25 mg Q8 PO Last administered on 07/09/17 05:41; Admin Dose 25 MG; Start 06/30/17 at 14:00 Carvedilol (Coreg) 6.25 mg BID PO Last administered on 07/09/17 08:25; Admin Dose 6.25 MG; Start 07/02/17 at 21:00 Pantoprazole (Protonix Tab) 40 mg BID@ PO Last administered on 07/09/17 05:41; Admin Dose 40 MG; Start 07/02/17 at 18:00 Ferrous Sulfate (Ferrous Sulfate (Ec)) 325 mg DAILY PO Last administered on t 08:25; Admin Dose 325 MG; Start 07/06/17 at 12:00 WEN GOFF Jul 09, 2017 11:49
[2017-07-09] MEDS ORDERED: POTASSIUM CHLORIDE 250 ML IVPB ONE (13:30)
[2017-07-09] MEDS: MONTELUKAST 10 MG TAB PO SCH (20:16)
[2017-07-10] VITALS (20 sets, daily range): BP systolic 116–145; BP diastolic 63–73; PULSE 22–82; RESP 16–20
[2017-07-10] MEDS: ACCU-CHEK XX SCH (02:00)
[2017-07-10] MEDS: PANTOPRAZOLE (EC) 40 MG TAB PO SCH ×2 (05:09→18:44)
[2017-07-10] MEDS: DILTIAZEM 60 MG TAB GTB SCH ×3 (05:10→22:10)
[2017-07-10] MEDS: FUROSEMIDE 20 MG INJ IV SCH ×2 (05:11→18:44)
[2017-07-10] MEDS: INSULIN ASPART [NOVOLOG] 3 ML PEN SC SCH ×4 (07:25→20:25)
[2017-07-10 08:10] LABS: BASOPHILS % 0.1 % (0.0-2.0); EOSINOPHILS # 0.4 10^3/ul (0.0-0.5); EOSINOPHILS % 5.5 % (0.0-7.0); HEMATOCRIT 26.6 % (37.0-47.0); HEMOGLOBIN 8.4 g/dl (12.0-16.0); LYMPHOCYTES # 1.2 10^3/ul (0.8-2.9); LYMPHOCYTES % 16.8 % (15.0-51.0); MEAN CORPUSCULAR HEMOGLOBIN 29.6 pg (29.0-33.0); MEAN CORPUSCULAR HGB CONC 31.6 g/dl (32.0-37.0); MEAN CORPUSCULAR VOLUME 93.7 fl (82.0-101.0); MEAN PLATELET VOLUME 10.2 fl (7.4-10.4); MONOCYTE # 0.6 10^3/ul (0.3-0.9); MONOCYTES % 8.8 % (0.0-11.0); NEUTROPHIL # 4.7 10^3/ul (1.6-7.5); NEUTROPHILS % 68.5 % (39.0-77.0); PLATELET COUNT 182 10^3/UL (140-415); RED BLOOD COUNT 2.84 10^6/ul (4.20-5.40); RED CELL DISTRIBUTION WIDTH 15.4 % (11.5-14.5); WHITE BLOOD COUNT 6.9 10^3/ul (4.8-10.8)
[2017-07-10 08:29] LABS: CALCIUM 8.7 mg/dl (8.4-10.2); CREATININE 1.55 mg/dl (0.44-1.00); MAGNESIUM 1.8 mg/dl (1.7-2.5); POTASSIUM 3.5 mmol/L (3.5-5.1)
[2017-07-10] MEDS: FERROUS SULFATE (EC) 325 MG TAB PO SCH (08:32)
[2017-07-10] MEDS: LEVOTHYROXINE 100 MCG TAB PO SCH (08:32)
[2017-07-10] MEDS: ENOXAPARIN 60 MG/0.6 ML SYG SC SCH (08:38)
[2017-07-10] MEDS ORDERED: SOD CHLORIDE 0.9% 250 ML IV* ONE (08:39)
[2017-07-10] MEDS ORDERED: DIPHENHYDRAMINE 50 MG INJ IV SCH (09:00)
[2017-07-10] MEDS ORDERED: ACETAMINOPHEN 325 MG TAB PO SCH (09:00)
[2017-07-10] MEDS: BALSAM PERU/CASTOR OIL 60 GM TUBE TOP SCH ×2 (09:00→20:25)
--- NOTE | 2017-07-10 10:46 | PN ---
DATE: 07/10/2017 SUBJECTIVE: The patient is feeling well, a little bit stronger, at times anxious. OBJECTIVE: VITAL SIGNS: Temperature 98.6, pulse 73 and irregular, respirations 18, blood pressure 121/73, oxyg en saturation 98% on FIO2 30%. GENERAL: Well-developed, well-nourished female in no acute distress, lying in bed. CHEST: Clear to auscultation bilaterally except for decreased breath sounds bilateral bases. HEART: Irregular. ABDOMEN: Soft, nontender, nondistended. EXTREMITIES: No cyanosis, clubbing. There is trace edema in bilateral upper extremities and 1+ danni ateral lower extremities. NEUROLOGIC: Nonfocal. LABORATORY DATA: Pending at the time of this dictation, yesterday on 07/09/2017, potassium was 3.2, carbon dioxide was 42, creatinine 1.52, magnesium 1.5, hemoglobin of 8.0 and hematocrit of 25.2. ASSESSMENT AND PLAN 1. Acute respiratory failure with hypercapnia. The patient remains stable, but continues to requir e intermittent BiPAP. The patient's CO2 was elevated yesterday and patient's blood gas showed more CO2 retention and previously. We will continue to monitor and continue to use BiPAP through the [facility] and as needed through the day. 2. Anemia, remains stable, but patient with congestive heart failure, dyspnea. Would benefit from transfusions. The patient's family is going to discuss amongst themselves whether or not transfusio n would be reasonable and if so we will transfuse the patient 2 units of blood with Lasix following the units to prevent fluid overload. 3. 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 4. Atrial fibrillation, remains stable with current medications. We will continue with current med s and adjust as necessary. 5. Acute on chronic kidney disease, continues to improve, will continue to monitor. 6. Hypothyroidism, stable. Continue with meds. 7. Diabetes, stable. Continue with medications and diet. 8. Discharge planning. The patient does not meet criteria for [facility]. We will get an acu te rehabilitation consultation to see if she would qualify for that as the patient's family does not want to send the patient to a intermediate. Dictated By: MORGAN SNOW MD SR/TAZ Conf#: [id number] DID#: [id number] CC: SARAH VINCENT MD;*End*
--- NOTE | 2017-07-10 11:11 | CONS ---
Date/Time of Note Date/Time of Note DATE: 07/10/17 TIME: 11:10 Consult Date/Type/Reason Admit Date/Time Jun 14, 2017 at 09:27 Type of Consultation: Pulmonary Ordering Provider: SARAH VINCENT Subjective Patient stable overnight. Came off BiPAP for several hours this morning and requested to be placed back home. No evidence of respiratory distress or desaturation prior to being placed back on BiPAP during the day. Objective Vital Signs Date Time Temp Pulse Resp B/P Pulse Ox O2 Delivery O2 Flow Rate FiO2 07/10/17 08:50 22 69 98 07/10/17 07:27 98.6 18 121/73 07/09/17 20:00 Nasal Cannula 2.0 Intake and Output 07/09/17 07/09/17 07/10/17 14:59 22:59 06:59 Intake Total 400 ml Output Total 800 ml Balance -400 ml Exam GENERAL: Elderly lady appears comfortable at rest no acute distress VITAL SIGNS: per chart NECK: Supple. No JVD or lymphadenopathy. CARDIAC EXAM: S1, S2. No added sounds or murmurs. CHEST: clear bilaterally, No added sounds, rales or wheezes ABDOMEN: Soft, nontender. No guarding or rebound. EXTREMITIES: No cyanosis, clubbing or edema. NEUROLOGIC: Generalized weakness. No focal deficits. Results/Medications Result Diagram: 07/10/17 0753 07/10/17 0753 Results 24 hrs Laboratory Tests Test 07/09/17 12:04 07/09/17 17:08 07/09/17 20:14 07/10/17 07:53 Bedside Glucose 108 102 112 White Blood Count 6.9 Red Blood Count 2.84 L Hemoglobin 8.4 L Hematocrit 26.6 L Mean Corpuscular Volume 93.7 Mean Corpuscular Hemoglobin 29.6 Mean Corpuscular Hemoglobin Concent 31.6 L Red Cell Distribution Width 15.4 H Platelet Count 182 Mean Platelet Volume 10.2 Neutrophils % 68.5 Lymphocytes % 16.8 Monocytes % 8.8 Eosinophils % 5.5 Basophils % 0.1 Nucleated Red Blood Cells % 0.0 Neutrophils # 4.7 Lymphocytes # 1.2 Monocytes # 0.6 Eosinophils # 0.4 Basophils # 0.0 Nucleated Red Blood Cells # 0.0 Sodium Level 143 Potassium Level 3.5 Chloride Level 93 L Carbon Dioxide Level 41 *H Anion Gap 13 # Blood Urea Nitrogen 31 H Creatinine 1.55 H Glucose Level 109 Calcium Level 8.7 Magnesium Level 1.8 Test 07/10/17 07:54 Bedside Glucose 118 Medications Current Medications Ondansetron HCl (Zofran Inj) 4 mg Q6H PRN IV NAUSEA AND/OR VOMITING Last administered on 06/27/17 21:40; Admin Dose 4 MG; Start 06/13/17 at 15:30 Acetaminophen (Tylenol Tab) 650 mg Q6H PRN PO PAIN LEVEL 1-3 OR FEVER Last administered on 06/24/17 16:33; Admin Dose 650 MG; Start 06/13/17 at 15:30 Docusate Sodium (Colace) 100 mg Q12H PRN PO CONSTIPATION; Start 06/13/17 at 15 :30 Magnesium Hydroxide (Milk Of Mag) 30 ml DAILY PRN PO CONSTIPATION Last administered on 07/02/17 08:51; Admin Dose 30 ML; Start 06/13/17 at 15:30 Hydralazine HCl (Apresoline) 10 mg Q6H PRN IV ELEVATED BLOOD PRESSURE Last administered on 06/25/17 08:43; Admin Dose 10 MG; Start 06/13/17 at 15:30 Nitroglycerin (Nitroglycerin (Sl Tab) 0.4 Mg) 1 tab Q5M PRN SL ANGINA; Start 06/13/17 at 15:30 Atorvastatin Calcium (Lipitor) 10 mg HS PO Last administered on 06/16/17 21: 47; Admin Dose 10 MG; Start 06/13/17 at 21:00; Status Future Hold Levothyroxine Sodium (Synthroid) 100 mcg DAILY PO Last administered on 08:32; Admin Dose 100 MCG; Start 06/14/17 at 09:00 Montelukast Sodium (Singulair) 10 mg QHS PO Last administered on 07/09/17 20: 16; Admin Dose 10 MG; Start 06/13/17 at 21:00 Insulin Glargine (Lantus) 10 unit DAILY@20 SC ; Start 06/14/17 at 20:00; Status Future Hold Diagnostic Test (Pha) (Accu-Chek) 1 ea 02 XX Last administered on 06/24/17 02 :03; Admin Dose 1 EA; Start 06/15/17 at 02:00 Miscellaneous Information 1 ea NOTE XX ; Start 06/14/17 at 06:00 Glucose (Glutose) 15 gm Q15M PRN PO DECREASED GLUCOSE; Start 06/14/17 at 06:00 Glucose (Glutose) 22.5 gm Q15M PRN PO DECREASED GLUCOSE; Start 06/14/17 at 06: 00 Dextrose (D50w Syringe) 25 ml Q15M PRN IV DECREASED GLUCOSE Last administered on 06/17/17 04:41; Admin Dose 25 ML; Start 06/14/17 at 06:00 Dextrose (D50w Syringe) 50 ml Q15M PRN IV DECREASED GLUCOSE; Start 06/14/17 at 06:00 Glucagon (Glucagen) 1 mg Q15M PRN IM DECREASED GLUCOSE; Start 06/14/17 at 06: 00 Glucose (Glutose) 15 gm Q15M PRN BUCCAL DECREASED GLUCOSE; Start 06/14/17 at 06:00 Enoxaparin Sodium (Lovenox) 60 mg DAILY SC Last administered on 07/10/17 08:38 ; Admin Dose 60 MG; Start 06/17/17 at 09:00 IV Flush (NS 10 ml) 10 ml PRN PRN IV IV PROTOCOL; Start 06/16/17 at 14:00 Haloperidol (Haldol) 1 mg Q12 PRN IV agitation Last administered on 06/16/17 21:56; Admin Dose 1 MG; Start 06/16/17 at 20:30 Metoprolol Tartrate (Lopressor) 50 mg BID PO Last administered on 06/23/17 20 :02; Admin Dose 50 MG; Start 06/19/17 at 21:00; Status Future hold Diltiazem HCl (Cardizem) 60 mg Q8 GTB Last administered on 07/10/17 05:10; Admin Dose 60 MG; Start 06/23/17 at 14:00; Status Future hold Hydralazine HCl (Apresoline) 25 mg Q8 PO Last administered on 07/10/17 05:10; Admin Dose 25 MG; Start 06/30/17 at 14:00 Carvedilol (Coreg) 6.25 mg BID PO Last administered on 07/10/17 08:33; Admin Dose 6.25 MG; Start 07/02/17 at 21:00 Pantoprazole (Protonix Tab) 40 mg BID@ PO Last administered on 07/10/17 05:09; Admin Dose 40 MG; Start 07/02/17 at 18:00 Ferrous Sulfate (Ferrous Sulfate (Ec)) 325 mg DAILY PO Last administered on 08:32; Admin Dose 325 MG; Start 07/06/17 at 12:00 Acetaminophen (Tylenol Tab) 650 mg ONCE PO ; Start 07/10/17 at 09:00; Stop 07/11 at 08:59 Diphenhydramine HCl (Benadryl) 25 mg ONCE IV ; Start 07/10/17 at 09:00; Stop at 08:59 Assessment/Plan Chief Complaint/Hosp Course IMPRESSION: 1. Acute hypercapnic respiratory failure, continues to request BiPAP although no evidence of respiratory distress or desaturation. 2. History of hypertension. 3. Atrial fibrillation with rapid ventricular rate. Currently rate controlled 4. Diabetes mellitus. 5. Status post shock. 6. Renal insufficiency. Plan 1. Continue BiPAP at night. As needed. Encourage off BiPAP during the day. 2. Rate control per cardiology. 3. Avoid sedation. 4. Deep venous thrombosis and gastrointestinal prophylaxis. 5. Aspiration precautions. 6. Physical therapy. We will likely need group home facility. Problems: YAZMIN VARGAS MD, [facility] Jul 10, 2017 11:11
--- NOTE | 2017-07-10 13:01 | CONS ---
Date/Time of Note Date/Time of Note DATE: 07/10/17 TIME: 12:59 Assessment/Plan Assessment/Plan Chief Complaint/Hosp Course IMP: 1.Hypotension-improved off of pressors/NL EF by echo this admit-now HTN which is well controlled 2. AF with RVR-yesterday apparently had pause 3 seconds and all estrella agents were held- now again tolerating coreg/dilt with good heart rates and no sig eren or pause 3. Renal failure-ongoing but slowly improving 4. Hypercarbic resp failure s/p extubation-improved with BIPAP at night 5. Hypothyroid 6. PLeural effusion-s/p thoracentesis 7. Anemia-ongoing Recc: -Tele -serial ecg's -Continue lasix diuresis -Continue lovenox QD as tolerated given anemia -Hold asa given anemia -Follow HR/BP/volume status closely -Continue BB/CCB and follow HR clsoely with patient tolerating medications at lower dose -Continue hydralazine as well with well controlled BP -PT/OT Problems: Consultation Date/Type/Reason Admit Date/Time Jun 14, 2017 at 09:27 Initial Consult Date 06/15/17 Type of Consultation: cardiology Reason for Consultation AF Referring Provider: SARAH VINCENT Exam/Review of Systems Vital Signs Vitals Vital Signs Date Time Temp Pulse Resp B/P Pulse Ox O2 Delivery O2 Flow Rate FiO2 07/10/17 11:24 98.3 87 16 116/68 98 07/10/17 08:50 98 07/09/17 20:00 Nasal Cannula 2.0 Intake and Output 07/09/17 07/09/17 07/10/17 15:00 23:00 07:00 Intake Total 400 ml 300 ml Output Total 800 ml 500 ml Balance -400 ml -200 ml Exam Review of Systems: CONSTITUTIONAL: No fevers, chills. PULMONARY: No sob CARDIOVASCULAR: No chest pain/palpitations GASTROINTESTINAL: No nausea/vomiting. GENITOURINARY: No hematuria/dysuria. MUSCULOSKELETAL: No myagias/arthalgias. PSYCHIATRIC: The patient denies depression. NEUROLOGIC: No weakness Constitutional: alert Psych: no complaints Head: normocephalic ENMT: mucosa pink and moist Neck: jvd (9 cm water), supple Respiratory: diminished breath sounds Cardiovascular: regular rate and rhythm Gastrointestinal: non-tender, soft Musculoskeletal: muscle tone (normal) Extremities: edema (none) Neurological: other (No focal deficits) Results Result Diagram: 07/10/17 0753 07/10/17 0753 Results 24 hrs Laboratory Tests Test 07/09/17 17:08 07/09/17 20:14 07/10/17 07:53 07/10/17 07:54 Bedside Glucose 102 112 118 White Blood Count 6.9 Red Blood Count 2.84 L Hemoglobin 8.4 L Hematocrit 26.6 L Mean Corpuscular Volume 93.7 Mean Corpuscular Hemoglobin 29.6 Mean Corpuscular Hemoglobin Concent 31.6 L Red Cell Distribution Width 15.4 H Platelet Count 182 Mean Platelet Volume 10.2 Neutrophils % 68.5 Lymphocytes % 16.8 Monocytes % 8.8 Eosinophils % 5.5 Basophils % 0.1 Nucleated Red Blood Cells % 0.0 Neutrophils # 4.7 Lymphocytes # 1.2 Monocytes # 0.6 Eosinophils # 0.4 Basophils # 0.0 Nucleated Red Blood Cells # 0.0 Sodium Level 143 Potassium Level 3.5 Chloride Level 93 L Carbon Dioxide Level 41 *H Anion Gap 13 # Blood Urea Nitrogen 31 H Creatinine 1.55 H Glucose Level 109 Calcium Level 8.7 Magnesium Level 1.8 Test 07/10/17 11:59 Bedside Glucose 95 Medications Medications Current Medications Ondansetron HCl (Zofran Inj) 4 mg Q6H PRN IV NAUSEA AND/OR VOMITING Last administered on 06/27/17 21:40; Admin Dose 4 MG; Start 06/13/17 at 15:30 Acetaminophen (Tylenol Tab) 650 mg Q6H PRN PO PAIN LEVEL 1-3 OR FEVER Last administered on 06/24/17 16:33; Admin Dose 650 MG; Start 06/13/17 at 15:30 Docusate Sodium (Colace) 100 mg Q12H PRN PO CONSTIPATION; Start 06/13/17 at 15 :30 Magnesium Hydroxide (Milk Of Mag) 30 ml DAILY PRN PO CONSTIPATION Last administered on 07/02/17 08:51; Admin Dose 30 ML; Start 06/13/17 at 15:30 Hydralazine HCl (Apresoline) 10 mg Q6H PRN IV ELEVATED BLOOD PRESSURE Last administered on 06/25/17 08:43; Admin Dose 10 MG; Start 06/13/17 at 15:30 Nitroglycerin (Nitroglycerin (Sl Tab) 0.4 Mg) 1 tab Q5M PRN SL ANGINA; Start 06/13/17 at 15:30 Atorvastatin Calcium (Lipitor) 10 mg HS PO Last administered on 06/16/17 21: 47; Admin Dose 10 MG; Start 06/13/17 at 21:00; Status Future Hold Levothyroxine Sodium (Synthroid) 100 mcg DAILY PO Last administered on 08:32; Admin Dose 100 MCG; Start 06/14/17 at 09:00 Montelukast Sodium (Singulair) 10 mg QHS PO Last administered on 07/09/17 20: 16; Admin Dose 10 MG; Start 06/13/17 at 21:00 Insulin Glargine (Lantus) 10 unit DAILY@20 SC ; Start 06/14/17 at 20:00; Status Future Hold Diagnostic Test (Pha) (Accu-Chek) 1 ea 02 XX Last administered on 06/24/17 02 :03; Admin Dose 1 EA; Start 06/15/17 at 02:00 Miscellaneous Information 1 ea NOTE XX ; Start 06/14/17 at 06:00 Glucose (Glutose) 15 gm Q15M PRN PO DECREASED GLUCOSE; Start 06/14/17 at 06:00 Glucose (Glutose) 22.5 gm Q15M PRN PO DECREASED GLUCOSE; Start 06/14/17 at 06: 00 Dextrose (D50w Syringe) 25 ml Q15M PRN IV DECREASED GLUCOSE Last administered on 06/17/17 04:41; Admin Dose 25 ML; Start 06/14/17 at 06:00 Dextrose (D50w Syringe) 50 ml Q15M PRN IV DECREASED GLUCOSE; Start 06/14/17 at 06:00 Glucagon (Glucagen) 1 mg Q15M PRN IM DECREASED GLUCOSE; Start 06/14/17 at 06: 00 Glucose (Glutose) 15 gm Q15M PRN BUCCAL DECREASED GLUCOSE; Start 06/14/17 at 06:00 Enoxaparin Sodium (Lovenox) 60 mg DAILY SC Last administered on 07/10/17 08:38 ; Admin Dose 60 MG; Start 06/17/17 at 09:00 IV Flush (NS 10 ml) 10 ml PRN PRN IV IV PROTOCOL; Start 06/16/17 at 14:00 Haloperidol (Haldol) 1 mg Q12 PRN IV agitation Last administered on 06/16/17 21:56; Admin Dose 1 MG; Start 06/16/17 at 20:30 Metoprolol Tartrate (Lopressor) 50 mg BID PO Last administered on 06/23/17 20 :02; Admin Dose 50 MG; Start 06/19/17 at 21:00; Status Future hold Diltiazem HCl (Cardizem) 60 mg Q8 GTB Last administered on 07/10/17 05:10; Admin Dose 60 MG; Start 06/23/17 at 14:00; Status Future hold Hydralazine HCl (Apresoline) 25 mg Q8 PO Last administered on 07/10/17 05:10; Admin Dose 25 MG; Start 06/30/17 at 14:00 Carvedilol (Coreg) 6.25 mg BID PO Last administered on 07/10/17 08:33; Admin Dose 6.25 MG; Start 07/02/17 at 21:00 Pantoprazole (Protonix Tab) 40 mg BID@06,18 PO Last administered on 07/10/17 05:09; Admin Dose 40 MG; Start 07/02/17 at 18:00 Ferrous Sulfate (Ferrous Sulfate (Ec)) 325 mg DAILY PO Last administered on 08:32; Admin Dose 325 MG; Start 07/06/17 at 12:00 Acetaminophen (Tylenol Tab) 650 mg ONCE PO ; Start 07/10/17 at 09:00; Stop 07/11 at 08:59 Diphenhydramine HCl (Benadryl) 25 mg ONCE IV ; Start 07/10/17 at 09:00; Stop at 08:59 WEN GOFF Jul 10, 2017 13:01
[2017-07-10] MEDS ORDERED: DIPHENHYDRAMINE 25 MG CAP PO SCH (15:30)
[2017-07-10] MEDS ORDERED: FUROSEMIDE 20 MG INJ IV SCH (17:00)
[2017-07-10] MEDS: MONTELUKAST 10 MG TAB PO SCH (20:25)
[2017-07-10] MEDS ORDERED: DIPHENHYDRAMINE 50 MG INJ IV STA (21:54)
[2017-07-10] MEDS ORDERED: DIPHENHYDRAMINE 50 MG INJ ONE (22:01)
[2017-07-10] MEDS: NYSTATIN 30 GM POWDER BTL TOP SCH (22:06)
[2017-07-11] VITALS (21 sets, daily range): BP systolic 106–142; BP diastolic 54–79; PULSE 59–86; RESP 16–20
[2017-07-11] MEDS ORDERED: DIPHENHYDRAMINE 50 MG INJ IV PRN
[2017-07-11] MEDS: ACCU-CHEK XX SCH (00:22)
[2017-07-11] MEDS: TRIAMCINOLONE ACET 0.025% 60 ML LOT TOP SCH ×3 (01:30→21:17)
[2017-07-11] MEDS: FUROSEMIDE 20 MG INJ IV SCH (05:44)
[2017-07-11] MEDS: DILTIAZEM 60 MG TAB GTB SCH ×3 (05:44→21:19)
[2017-07-11] MEDS: PANTOPRAZOLE (EC) 40 MG TAB PO SCH ×2 (05:45→19:08)
[2017-07-11] MEDS: INSULIN ASPART [NOVOLOG] 3 ML PEN SC SCH ×4 (07:25→21:00)
[2017-07-11 07:30] LABS: BASOPHILS % 0.1 % (0.0-2.0); EOSINOPHILS # 0.5 10^3/ul (0.0-0.5); EOSINOPHILS % 6.3 % (0.0-7.0); LYMPHOCYTES # 1.4 10^3/ul (0.8-2.9); LYMPHOCYTES % 18.7 % (15.0-51.0); MEAN CORPUSCULAR HEMOGLOBIN 29.6 pg (29.0-33.0); MEAN CORPUSCULAR HGB CONC 32.3 g/dl (32.0-37.0); MEAN CORPUSCULAR VOLUME 91.7 fl (82.0-101.0); MEAN PLATELET VOLUME 10.5 fl (7.4-10.4); MONOCYTE # 0.7 10^3/ul (0.3-0.9); MONOCYTES % 9.6 % (0.0-11.0); NEUTROPHIL # 4.8 10^3/ul (1.6-7.5); PLATELET COUNT 164 10^3/UL (140-415); RED BLOOD COUNT 3.38 10^6/ul (4.20-5.40); RED CELL DISTRIBUTION WIDTH 16.2 % (11.5-14.5); WHITE BLOOD COUNT 7.4 10^3/ul (4.8-10.8)
[2017-07-11 07:47] LABS: CALCIUM 8.5 mg/dl (8.4-10.2); CREATININE 1.52 mg/dl (0.44-1.00); MAGNESIUM 1.7 mg/dl (1.7-2.5); POTASSIUM 3.5 mmol/L (3.5-5.1)
[2017-07-11] MEDS: ENOXAPARIN 60 MG/0.6 ML SYG SC SCH (09:00)
[2017-07-11] MEDS: BALSAM PERU/CASTOR OIL 60 GM TUBE TOP SCH ×2 (09:00→21:18)
[2017-07-11] MEDS: LEVOTHYROXINE 100 MCG TAB PO SCH (09:06)
[2017-07-11] MEDS: FERROUS SULFATE (EC) 325 MG TAB PO SCH (09:06)
[2017-07-11] MEDS: NYSTATIN 30 GM POWDER BTL TOP SCH ×2 (09:09→21:17)
[2017-07-11 10:04] LABS: POST-TRANSFUSION BILIRUBIN 0.4 mg/dl
[2017-07-11] MEDS ORDERED: SOD CHLORIDE 0.9% 250 ML IV ONE (11:00)
[2017-07-11 11:22] LABS: Allen Test ACCEPTAB; Arterial Base Excess 12.7 mmol/L (-3.0-3); Arterial COHb 0.2 % (0.0-3.0); Arterial HCO3 38.1 mmol/L (22.0-26.0); Arterial MetHb 0.5 % (0.0-1.5); Arterial Total Hemglobin 11.3 g/dl (12.0-18.0); MODE NASAL CANNULA
--- NOTE | 2017-07-11 11:51 | PN ---
DATE: 07/11/2017 SUBJECTIVE: The patient is feeling sleepy. She feels numb after receiving the Benadryl. OBJECTIVE: VITAL SIGNS: Temperature 98.4, respirations 16, blood pressure 138/79, pulse 63 and irregular, oxyg en saturation 98% on FIO2 30% with BiPAP. GENERAL: Well-developed lethargic female in no acute distress, lying in bed. SKIN: Mottled erythematous rash over most of body. NEUROLOGIC: The patient is lethargic but arousable, answers questions and able to speak without iss ues. CHEST: Clear to auscultation bilaterally except for decreased breath sounds bilateral bases. HEART: Irregularly irregular. ABDOMEN: Soft, nontender. EXTREMITIES: 1+ bilateral lower extremity edema. LABORATORY DATA: Sodium 140, potassium 3.5, chloride 93, bicarbonate 42, BUN 30, creatinine 1.52, b lood sugar of 68. Magnesium 1.7, calcium 8.5, hemoglobin 10.0, hematocrit 31.0, white blood cell co unt 7.4, platelets 164. ASSESSMENT AND PLAN 1. Anemia, improved. Patient had a transfusion reaction after receiving at least two-thirds of the second unit. The patient's hematocrit is improved with transfusion and no need for further transfu candace. We will try to hold off on the Benadryl as patient is very lethargic from this. 2. Acute respiratory failure with hypercapnia, worse as patient was sedated from the Benadryl and i s currently on BiPAP. We will recheck a blood gas to evaluate further, especially in light of tavia donahue's bicarbonate chemistry panel which is 42. This is likely in part related to contraction alkalos is from her diuresis. 3. Atrial fibrillation, remains stable. Continue medications and telemetry. 4. Coronary artery disease/acute congestive heart failure combined/hypertension/coronary artery dis ease. If patient remains stable, we will continue to adjust medications as necessary. Continue wit h telemetry. 5. Acute on chronic renal insufficiency, improved. We will continue to monitor. 6. Diabetes. The patient with hypoglycemia ____ today, but patient was sleepy and did not have as much to eat. Continue to monitor. Continue with coverage. 7. Hypothyroidism, stable. Continue with medications. 8. Discharge planning. Patient is not a candidate for acute rehabilitation or [facility]. I have discu ssed with [facility] with family and patient and will likely plan for some time next week when patient is more stable. Dictated By: MORGAN SNOW MD SR/TAZ Conf#: [id number] DID#: [id number]
--- NOTE | 2017-07-11 13:06 | CONS ---
Date/Time of Note Date/Time of Note DATE: 07/11/17 TIME: 12:58 Assessment/Plan Assessment/Plan Chief Complaint/Hosp Course IMP: 1.Hypotension-improved off of pressors/NL EF by echo this admit-now HTN which is well controlled-recurrent episode of hypotension now improved s/p IVF bolus x 2500 CC. ? vagal reaction in setting of abdominal pain/valsalva/relatively intravascular dry 2. AF with RVR-yesterday apparently had pause 3 seconds and all estrella agents were held- now again tolerating coreg/dilt with good heart rates and no sig eren or pause 3. Renal failure-ongoing but slowly improving 4. Hypercarbic resp failure s/p extubation-improved with BIPAP at night 5. Hypothyroid 6. PLeural effusion-s/p thoracentesis 7. Anemia-a/p transfusion with transfusion redacyion overnight Recc: -Tele -serial ecg's -Continue lovenox QD as tolerated given anemia -Hold asa given anemia -Follow HR/BP/volume status closely -BB/CCB only as tolerated given epsiode of hypotension -Continue hydralazine as well with well controlled BP -PT/OT -Hold lasix and follow blood pressure Problems: Consultation Date/Type/Reason Admit Date/Time Jun 14, 2017 at 09:27 Initial Consult Date 06/15/17 Type of Consultation: cardiology Reason for Consultation AF Referring Provider: SARAH VINCENT Exam/Review of Systems Vital Signs Vitals Vital Signs Date Time Temp Pulse Resp B/P Pulse Ox O2 Delivery O2 Flow Rate FiO2 07/11/17 11:45 98.4 74 16 112/67 98 07/11/17 09:10 2.0 07/11/17 09:05 30 07/10/17 23:00 BIPAP Intake and Output 07/10/17 07/10/17 07/11/17 14:59 22:59 06:59 Intake Total 300 ml 200 ml 400 ml Output Total 500 ml 1000 ml Balance -200 ml 200 ml -600 ml Exam Review of Systems: CONSTITUTIONAL: No fevers, chills. PULMONARY: No sob CARDIOVASCULAR: No chest pain/palpitations GASTROINTESTINAL: No nausea/vomiting. GENITOURINARY: No hematuria/dysuria. MUSCULOSKELETAL: No myagias/arthalgias. PSYCHIATRIC: The patient denies depression. NEUROLOGIC: No weakness Constitutional: alert Psych: no complaints Head: normocephalic ENMT: mucosa pink and moist Neck: jvd (9 cm watere), supple Respiratory: diminished breath sounds Cardiovascular: regular rate and rhythm Gastrointestinal: non-tender, soft Musculoskeletal: muscle tone (normal) Extremities: other (No focal deficits) Neurological: other (No focal deficits) Results Result Diagram: 07/11/1727 07/11/17 0627 Results 24 hrs Laboratory Tests Test 07/10/17 17:19 07/10/17 20:22 07/11/17 06:27 07/11/17 07:53 Bedside Glucose 110 122 82 White Blood Count 7.4 Red Blood Count 3.38 L Hemoglobin 10.0 L Hematocrit 31.0 L Mean Corpuscular Volume 91.7 Mean Corpuscular Hemoglobin 29.6 Mean Corpuscular Hemoglobin Concent 32.3 Red Cell Distribution Width 16.2 H Platelet Count 164 Mean Platelet Volume 10.5 H Neutrophils % 65.0 Lymphocytes % 18.7 Monocytes % 9.6 Eosinophils % 6.3 Basophils % 0.1 Nucleated Red Blood Cells % 0.0 Neutrophils # 4.8 Lymphocytes # 1.4 Monocytes # 0.7 Eosinophils # 0.5 Basophils # 0.0 Nucleated Red Blood Cells # 0.0 Sodium Level 140 Potassium Level 3.5 Chloride Level 93 L Carbon Dioxide Level 42 *H Anion Gap 9 Blood Urea Nitrogen 30 H Creatinine 1.52 H Glucose Level 68 #L Calcium Level 8.5 Magnesium Level 1.7 Test 07/11/17 10:00 07/11/17 10:52 Blood Gas Specimen Source Blood arterial Arterial Blood Date Drawn 07/11/2017 11:10:52 AM Arterial Blood pH (Temp corrected) 7.473 H Arterial Blood pCO2 (Temp correct) 53.2 H Arterial Blood pO2 (Temp corrected) 163.6 H Arterial Blood HCO3 38.1 H Arterial Blood Base Excess 12.7 H Arterial Blood Oxygen Saturation 98.7 Carlton Test ACCEPTAB Arterial Blood Gas Puncture Site Right Radial Arterial Blood Carboxyhemoglobin 0.2 Arterial Blood Methemoglobin 0.5 Oxyhemoglobin Percent 98.0 Total Hemoglobin 11.3 L Blood Gas Temperature 37.0 Blood Gas Modality NASAL CANNULA FiO2 30.0 Blood Gas Critical Value Read Back John DOUGLAS RN Blood Gas Notified Whom GHASSAND Blood Gas Notified Time 07/11/2017 11:21:54 AM Bedside Glucose 97 Medications Medications Current Medications Ondansetron HCl (Zofran Inj) 4 mg Q6H PRN IV NAUSEA AND/OR VOMITING Last administered on 06/27/17 21:40; Admin Dose 4 MG; Start 06/13/17 at 15:30 Acetaminophen (Tylenol Tab) 650 mg Q6H PRN PO PAIN LEVEL 1-3 OR FEVER Last administered on 06/24/17 16:33; Admin Dose 650 MG; Start 06/13/17 at 15:30 Docusate Sodium (Colace) 100 mg Q12H PRN PO CONSTIPATION; Start 06/13/17 at 15 :30 Magnesium Hydroxide (Milk Of Mag) 30 ml DAILY PRN PO CONSTIPATION Last administered on 07/02/17 08:51; Admin Dose 30 ML; Start 06/13/17 at 15:30 Hydralazine HCl (Apresoline) 10 mg Q6H PRN IV ELEVATED BLOOD PRESSURE Last administered on 06/25/17 08:43; Admin Dose 10 MG; Start 06/13/17 at 15:30 Nitroglycerin (Nitroglycerin (Sl Tab) 0.4 Mg) 1 tab Q5M PRN SL ANGINA; Start 06/13/17 at 15:30 Atorvastatin Calcium (Lipitor) 10 mg HS PO Last administered on 06/16/17 21: 47; Admin Dose 10 MG; Start 06/13/17 at 21:00; Status Future Hold Levothyroxine Sodium (Synthroid) 100 mcg DAILY PO Last administered on 09:06; Admin Dose 100 MCG; Start 06/14/17 at 09:00 Montelukast Sodium (Singulair) 10 mg QHS PO Last administered on 07/10/17 20: 25; Admin Dose 10 MG; Start 06/13/17 at 21:00 Insulin Glargine (Lantus) 10 unit DAILY@20 SC ; Start 06/14/17 at 20:00; Status Future Hold Diagnostic Test (Pha) (Accu-Chek) 1 ea 02 XX Last administered on 06/24/17 02 :03; Admin Dose 1 EA; Start 06/15/17 at 02:00 Miscellaneous Information 1 ea NOTE XX ; Start 06/14/17 at 06:00 Glucose (Glutose) 15 gm Q15M PRN PO DECREASED GLUCOSE; Start 06/14/17 at 06:00 Glucose (Glutose) 22.5 gm Q15M PRN PO DECREASED GLUCOSE; Start 06/14/17 at 06: 00 Dextrose (D50w Syringe) 25 ml Q15M PRN IV DECREASED GLUCOSE Last administered on 06/17/17 04:41; Admin Dose 25 ML; Start 06/14/17 at 06:00 Dextrose (D50w Syringe) 50 ml Q15M PRN IV DECREASED GLUCOSE; Start 06/14/17 at 06:00 Glucagon (Glucagen) 1 mg Q15M PRN IM DECREASED GLUCOSE; Start 06/14/17 at 06: 00 Glucose (Glutose) 15 gm Q15M PRN BUCCAL DECREASED GLUCOSE; Start 06/14/17 at 06:00 Enoxaparin Sodium (Lovenox) 60 mg DAILY SC Last administered on 07/10/17 08:38 ; Admin Dose 60 MG; Start 06/17/17 at 09:00 IV Flush (NS 10 ml) 10 ml PRN PRN IV IV PROTOCOL; Start 06/16/17 at 14:00 Haloperidol (Haldol) 1 mg Q12 PRN IV agitation Last administered on 06/16/17 21:56; Admin Dose 1 MG; Start 06/16/17 at 20:30 Metoprolol Tartrate (Lopressor) 50 mg BID PO Last administered on 06/23/17 20 :02; Admin Dose 50 MG; Start 06/19/17 at 21:00; Status Future hold Diltiazem HCl (Cardizem) 60 mg Q8 GTB Last administered on 07/11/17 05:44; Admin Dose 60 MG; Start 06/23/17 at 14:00; Status Future hold Hydralazine HCl (Apresoline) 25 mg Q8 PO Last administered on 07/11/17 05:45; Admin Dose 25 MG; Start 06/30/17 at 14:00 Carvedilol (Coreg) 6.25 mg BID PO Last administered on 07/11/17 09:07; Admin Dose 6.25 MG; Start 07/02/17 at 21:00 Pantoprazole (Protonix Tab) 40 mg BID@,18 PO Last administered on 07/11/17 05:45; Admin Dose 40 MG; Start 07/02/17 at 18:00 Ferrous Sulfate (Ferrous Sulfate (Ec)) 325 mg DAILY PO Last administered on 09:06; Admin Dose 325 MG; Start 07/06/17 at 12:00 Furosemide (Lasix) 20 mg ONCE IV Last administered on 07/10/17 22:12; Admin Dose 20 MG; Start 07/10/17 at 17:00; Stop 07/11/17 at 16:59 Nystatin (Nystatin Powder) 1 applic BID TOP Last administered on 07/11/17 09: 09; Admin Dose 1 APPLIC; Start 07/10/17 at 21:00 Triamcinolone Acetonide (Kenalog 0.025% Lotion) 1 applic BID TOP Last administered on 07/11/17 09:07; Admin Dose 1 APPLIC; Start 07/11/17 at 00:00 Diphenhydramine HCl (Benadryl) 50 mg Q6H PRN IV rash/itching Last administered on 07/11/17 05:43; Admin Dose 50 MG; Start 07/11/17 at 00:00 WEN GOFF Jul 11, 2017 13:06
--- NOTE | 2017-07-11 15:15 | CONS ---
Date/Time of Note Date/Time of Note DATE: 07/11/17 TIME: 15:14 Consult Date/Type/Reason Admit Date/Time Jun 14, 2017 at 09:27 Type of Consultation: Pulmonary Ordering Provider: SARAH VINCENT Subjective Comfortable this morning. Remains on and off BiPAP. Objective Vital Signs Date Time Temp Pulse Resp B/P Pulse Ox O2 Delivery O2 Flow Rate FiO2 07/11/17 13:30 79 98 30 07/11/17 11:45 98.4 16 112/67 07/11/17 09:10 2.0 07/11/17 08:00 Nasal Cannula Intake and Output 07/10/17 07/10/17 07/11/17 14:59 22:59 06:59 Intake Total 300 ml 200 ml 400 ml Output Total 500 ml 1000 ml Balance -200 ml 200 ml -600 ml Exam GENERAL: Elderly lady appears comfortable at rest no acute distress VITAL SIGNS: per chart NECK: Supple. No JVD or lymphadenopathy. CARDIAC EXAM: S1, S2. No added sounds or murmurs. CHEST: clear bilaterally, No added sounds, rales or wheezes ABDOMEN: Soft, nontender. No guarding or rebound. EXTREMITIES: No cyanosis, clubbing or edema. NEUROLOGIC: Generalized weakness. No focal deficits. Results/Medications Result Diagram: 07/11/1762607/11/17626 Results 24 hrs Laboratory Tests Test 07/10/17 17:19 07/10/17 20:22 07/11/17 06:27 07/11/17 07:53 Bedside Glucose 110 122 82 White Blood Count 7.4 Red Blood Count 3.38 L Hemoglobin 10.0 L Hematocrit 31.0 L Mean Corpuscular Volume 91.7 Mean Corpuscular Hemoglobin 29.6 Mean Corpuscular Hemoglobin Concent 32.3 Red Cell Distribution Width 16.2 H Platelet Count 164 Mean Platelet Volume 10.5 H Neutrophils % 65.0 Lymphocytes % 18.7 Monocytes % 9.6 Eosinophils % 6.3 Basophils % 0.1 Nucleated Red Blood Cells % 0.0 Neutrophils # 4.8 Lymphocytes # 1.4 Monocytes # 0.7 Eosinophils # 0.5 Basophils # 0.0 Nucleated Red Blood Cells # 0.0 Sodium Level 140 Potassium Level 3.5 Chloride Level 93 L Carbon Dioxide Level 42 *H Anion Gap 9 Blood Urea Nitrogen 30 H Creatinine 1.52 H Glucose Level 68 #L Calcium Level 8.5 Magnesium Level 1.7 Test 07/11/17 10:00 07/11/17 10:52 Blood Gas Specimen Source Blood arterial Arterial Blood Date Drawn 07/11/2017 11:10:52 AM Arterial Blood pH (Temp corrected) 7.473 H Arterial Blood pCO2 (Temp correct) 53.2 H Arterial Blood pO2 (Temp corrected) 163.6 H Arterial Blood HCO3 38.1 H Arterial Blood Base Excess 12.7 H Arterial Blood Oxygen Saturation 98.7 Carlton Test ACCEPTAB Arterial Blood Gas Puncture Site Right Radial Arterial Blood Carboxyhemoglobin 0.2 Arterial Blood Methemoglobin 0.5 Oxyhemoglobin Percent 98.0 Total Hemoglobin 11.3 L Blood Gas Temperature 37.0 Blood Gas Modality NASAL CANNULA FiO2 30.0 Blood Gas Critical Value Read Back John DOUGLAS RN Blood Gas Notified Whom JLD Blood Gas Notified Time 07/11/2017 11:21:54 AM Bedside Glucose 97 Medications Current Medications Ondansetron HCl (Zofran Inj) 4 mg Q6H PRN IV NAUSEA AND/OR VOMITING Last administered on 06/27/17 21:40; Admin Dose 4 MG; Start 06/13/17 at 15:30 Acetaminophen (Tylenol Tab) 650 mg Q6H PRN PO PAIN LEVEL 1-3 OR FEVER Last administered on 06/24/17 16:33; Admin Dose 650 MG; Start 06/13/17 at 15:30 Docusate Sodium (Colace) 100 mg Q12H PRN PO CONSTIPATION; Start 06/13/17 at 15 :30 Magnesium Hydroxide (Milk Of Mag) 30 ml DAILY PRN PO CONSTIPATION Last administered on 07/02/17 08:51; Admin Dose 30 ML; Start 06/13/17 at 15:30 Hydralazine HCl (Apresoline) 10 mg Q6H PRN IV ELEVATED BLOOD PRESSURE Last administered on 06/25/17 08:43; Admin Dose 10 MG; Start 06/13/17 at 15:30 Nitroglycerin (Nitroglycerin (Sl Tab) 0.4 Mg) 1 tab Q5M PRN SL ANGINA; Start 06/13/17 at 15:30 Atorvastatin Calcium (Lipitor) 10 mg HS PO Last administered on 06/16/17 21: 47; Admin Dose 10 MG; Start 06/13/17 at 21:00; Status Future Hold Levothyroxine Sodium (Synthroid) 100 mcg DAILY PO Last administered on 09:06; Admin Dose 100 MCG; Start 06/14/17 at 09:00 Montelukast Sodium (Singulair) 10 mg QHS PO Last administered on 07/10/17 20: 25; Admin Dose 10 MG; Start 06/13/17 at 21:00 Insulin Glargine (Lantus) 10 unit DAILY@20 SC ; Start 06/14/17 at 20:00; Status Future Hold Diagnostic Test (Pha) (Accu-Chek) 1 ea 02 XX Last administered on 06/24/17 02 :03; Admin Dose 1 EA; Start 06/15/17 at 02:00 Miscellaneous Information 1 ea NOTE XX ; Start 06/14/17 at 06:00 Glucose (Glutose) 15 gm Q15M PRN PO DECREASED GLUCOSE; Start 06/14/17 at 06:00 Glucose (Glutose) 22.5 gm Q15M PRN PO DECREASED GLUCOSE; Start 06/14/17 at 06: 00 Dextrose (D50w Syringe) 25 ml Q15M PRN IV DECREASED GLUCOSE Last administered on 06/17/17 04:41; Admin Dose 25 ML; Start 06/14/17 at 06:00 Dextrose (D50w Syringe) 50 ml Q15M PRN IV DECREASED GLUCOSE; Start 06/14/17 at 06:00 Glucagon (Glucagen) 1 mg Q15M PRN IM DECREASED GLUCOSE; Start 06/14/17 at 06: 00 Glucose (Glutose) 15 gm Q15M PRN BUCCAL DECREASED GLUCOSE; Start 06/14/17 at 06:00 Enoxaparin Sodium (Lovenox) 60 mg DAILY SC Last administered on 07/11/17 09:00 ; Admin Dose 60 MG; Start 06/17/17 at 09:00 IV Flush (NS 10 ml) 10 ml PRN PRN IV IV PROTOCOL; Start 06/16/17 at 14:00 Haloperidol (Haldol) 1 mg Q12 PRN IV agitation Last administered on 06/16/17 21:56; Admin Dose 1 MG; Start 06/16/17 at 20:30 Metoprolol Tartrate (Lopressor) 50 mg BID PO Last administered on 06/23/17 20 :02; Admin Dose 50 MG; Start 06/19/17 at 21:00; Status Future hold Diltiazem HCl (Cardizem) 60 mg Q8 GTB Last administered on 07/11/17 14:09; Admin Dose 60 MG; Start 06/23/17 at 14:00; Status Future hold Hydralazine HCl (Apresoline) 25 mg Q8 PO Last administered on 07/11/17 14:08; Admin Dose 25 MG; Start 06/30/17 at 14:00 Carvedilol (Coreg) 6.25 mg BID PO Last administered on 07/11/17 09:07; Admin Dose 6.25 MG; Start 07/02/17 at 21:00 Pantoprazole (Protonix Tab) 40 mg BID@,18 PO Last administered on 07/11/17 05:45; Admin Dose 40 MG; Start 07/02/17 at 18:00 Ferrous Sulfate (Ferrous Sulfate (Ec)) 325 mg DAILY PO Last administered on 09:06; Admin Dose 325 MG; Start 07/06/17 at 12:00 Furosemide (Lasix) 20 mg ONCE IV Last administered on 07/10/17 22:12; Admin Dose 20 MG; Start 07/10/17 at 17:00; Stop 07/11/17 at 16:59 Nystatin (Nystatin Powder) 1 applic BID TOP Last administered on 07/11/17 09: 09; Admin Dose 1 APPLIC; Start 07/10/17 at 21:00 Triamcinolone Acetonide (Kenalog 0.025% Lotion) 1 applic BID TOP Last administered on 07/11/17 09:07; Admin Dose 1 APPLIC; Start 07/11/17 at 00:00 Diphenhydramine HCl (Benadryl) 50 mg Q6H PRN IV rash/itching Last administered on 07/11/17 05:43; Admin Dose 50 MG; Start 07/11/17 at 00:00 Assessment/Plan Chief Complaint/Hosp Course IMPRESSION: 1. Acute hypercapnic respiratory failure, continues to request BiPAP although no evidence of respiratory distress or desaturation. 2. History of hypertension. 3. Atrial fibrillation with rapid ventricular rate. Currently rate controlled 4. Diabetes mellitus. 5. Status post shock. 6. Renal insufficiency. Plan 1. Continue BiPAP at night. As needed. Encourage off BiPAP during the day. 2. Rate control per cardiology. 3. Avoid sedation. 4. Deep venous thrombosis and gastrointestinal prophylaxis. 5. Aspiration precautions. 6. Physical therapy. Discharge planning. Problems: YAZMIN VARGAS MD, [facility] Jul 11, 2017 15:15
[2017-07-11] MEDS: MONTELUKAST 10 MG TAB PO SCH (21:17)
[2017-07-12] VITALS (19 sets, daily range): BP systolic 102–142; BP diastolic 56–75; PULSE 62–94; RESP 16–20
[2017-07-12] MEDS: ACCU-CHEK XX SCH ×2 (01:59→21:31)
[2017-07-12] MEDS: PANTOPRAZOLE (EC) 40 MG TAB PO SCH ×2 (06:13→17:49)
[2017-07-12] MEDS: DILTIAZEM 60 MG TAB GTB SCH ×3 (06:17→21:06)
[2017-07-12 07:00] LABS: BASOPHILS % 0.2 % (0.0-2.0); EOSINOPHILS # 0.4 10^3/ul (0.0-0.5); EOSINOPHILS % 4.7 % (0.0-7.0); HEMATOCRIT 30.3 % (37.0-47.0); HEMOGLOBIN 9.6 g/dl (12.0-16.0); LYMPHOCYTES # 1.5 10^3/ul (0.8-2.9); LYMPHOCYTES % 16.2 % (15.0-51.0); MEAN CORPUSCULAR HEMOGLOBIN 29.4 pg (29.0-33.0); MEAN CORPUSCULAR HGB CONC 31.7 g/dl (32.0-37.0); MEAN CORPUSCULAR VOLUME 92.7 fl (82.0-101.0); MEAN PLATELET VOLUME 10.4 fl (7.4-10.4); MONOCYTE # 0.7 10^3/ul (0.3-0.9); MONOCYTES % 7.3 % (0.0-11.0); NEUTROPHIL # 6.4 10^3/ul (1.6-7.5); NEUTROPHILS % 71.3 % (39.0-77.0); PLATELET COUNT 152 10^3/UL (140-415); RED BLOOD COUNT 3.27 10^6/ul (4.20-5.40); RED CELL DISTRIBUTION WIDTH 15.7 % (11.5-14.5)
[2017-07-12] MEDS: INSULIN ASPART [NOVOLOG] 3 ML PEN SC SCH ×4 (07:25→21:00)
[2017-07-12 07:32] LABS: CALCIUM 8.1 mg/dl (8.4-10.2); CREATININE 1.59 mg/dl (0.44-1.00); MAGNESIUM 1.7 mg/dl (1.7-2.5); POTASSIUM 3.4 mmol/L (3.5-5.1)
[2017-07-12] MEDS: LEVOTHYROXINE 100 MCG TAB PO SCH (09:01)
[2017-07-12] MEDS: FERROUS SULFATE (EC) 325 MG TAB PO SCH (09:01)
[2017-07-12] MEDS: ENOXAPARIN 60 MG/0.6 ML SYG SC SCH (09:02)
[2017-07-12] MEDS: TRIAMCINOLONE ACET 0.025% 60 ML LOT TOP SCH ×2 (09:02→21:06)
[2017-07-12] MEDS: NYSTATIN 30 GM POWDER BTL TOP SCH ×2 (09:02→21:06)
[2017-07-12] MEDS: BALSAM PERU/CASTOR OIL 60 GM TUBE TOP SCH ×2 (09:02→21:06)
--- NOTE | 2017-07-12 12:31 | CONS ---
Date/Time of Note Date/Time of Note DATE: 07/12/17 TIME: 12:27 Assessment/Plan Assessment/Plan Additional Assessment/Plan Atrial fibrillation rate controlled Renal failure Hypercarbic respiratory failure s/p extubation Hypothyroid Pleural effusion-s/p thoracentesis Anemia s/p blood transfusion Hemodynamically stable Heart failure clinically compensated Atrial fibrillation rate controlled Continue Coreg and Diltiazem Continue Lovenox Continue Hydralazine Replete Magnesium and Potassium Continue Levothyroxine Avoid Diuretics Consultation Date/Type/Reason Admit Date/Time Jun 14, 2017 at 09:27 Past Surgical History Past Surgical Hx: noncontributory Social History Smoking Status: Never smoker Exam/Review of Systems Vital Signs Vitals Vital Signs Date Time Temp Pulse Resp B/P Pulse Ox O2 Delivery O2 Flow Rate FiO2 07/12/17 11:41 97.6 75 17 102/64 97 07/12/17 10:50 30 07/12/17 09:02 Nasal Cannula 3.0 Intake and Output 07/11/17 07/11/17 07/12/17 15:00 23:00 07:00 Intake Total 300 ml Output Total 500 ml Balance -200 ml Exam Constitutional: alert, oriented Head: atraumatic, normocephalic Neck: non-tender, supple Respiratory: clear to auscultation Cardiovascular: irregular rhythm (no m/r/g) Gastrointestinal: nl liver, spleen, non-tender, soft Extremities: normal pulses Results Result Diagram: 07/12/17 0616 07/12/17 0616 Results 24 hrs Laboratory Tests Test 07/11/17 17:10 07/11/17 21:15 07/12/17 06:16 07/12/17 08:59 Bedside Glucose 101 92 75 White Blood Count 9.0 # Red Blood Count 3.27 L Hemoglobin 9.6 L Hematocrit 30.3 L Mean Corpuscular Volume 92.7 Mean Corpuscular Hemoglobin 29.4 Mean Corpuscular Hemoglobin Concent 31.7 L Red Cell Distribution Width 15.7 H Platelet Count 152 Mean Platelet Volume 10.4 Neutrophils % 71.3 Lymphocytes % 16.2 Monocytes % 7.3 Eosinophils % 4.7 Basophils % 0.2 Nucleated Red Blood Cells % 0.0 Neutrophils # 6.4 Lymphocytes # 1.5 Monocytes # 0.7 Eosinophils # 0.4 Basophils # 0.0 Nucleated Red Blood Cells # 0.0 Sodium Level 138 Potassium Level 3.4 L Chloride Level 92 L Carbon Dioxide Level 43 *H Anion Gap 6 L Blood Urea Nitrogen 30 H Creatinine 1.59 H Glucose Level 76 Calcium Level 8.1 L Magnesium Level 1.7 Test 07/12/17 11:41 Bedside Glucose 113 Medications Medications Current Medications Ondansetron HCl (Zofran Inj) 4 mg Q6H PRN IV NAUSEA AND/OR VOMITING Last administered on 06/27/17 21:40; Admin Dose 4 MG; Start 06/13/17 at 15:30 Acetaminophen (Tylenol Tab) 650 mg Q6H PRN PO PAIN LEVEL 1-3 OR FEVER Last administered on 06/24/17 16:33; Admin Dose 650 MG; Start 06/13/17 at 15:30 Docusate Sodium (Colace) 100 mg Q12H PRN PO CONSTIPATION; Start 06/13/17 at 15 :30 Magnesium Hydroxide (Milk Of Mag) 30 ml DAILY PRN PO CONSTIPATION Last administered on 07/02/17 08:51; Admin Dose 30 ML; Start 06/13/17 at 15:30 Hydralazine HCl (Apresoline) 10 mg Q6H PRN IV ELEVATED BLOOD PRESSURE Last administered on 06/25/17 08:43; Admin Dose 10 MG; Start 06/13/17 at 15:30 Nitroglycerin (Nitroglycerin (Sl Tab) 0.4 Mg) 1 tab Q5M PRN SL ANGINA; Start 06/13/17 at 15:30 Atorvastatin Calcium (Lipitor) 10 mg HS PO Last administered on 06/16/17 21: 47; Admin Dose 10 MG; Start 06/13/17 at 21:00; Status Future Hold Levothyroxine Sodium (Synthroid) 100 mcg DAILY PO Last administered on 09:01; Admin Dose 100 MCG; Start 06/14/17 at 09:00 Montelukast Sodium (Singulair) 10 mg QHS PO Last administered on 07/11/17 21: 17; Admin Dose 10 MG; Start 06/13/17 at 21:00 Insulin Glargine (Lantus) 10 unit DAILY@20 SC ; Start 06/14/17 at 20:00; Status Future Hold Diagnostic Test (Pha) (Accu-Chek) 1 ea 02 XX Last administered on 06/24/17 02 :03; Admin Dose 1 EA; Start 06/15/17 at 02:00 Miscellaneous Information 1 ea NOTE XX ; Start 06/14/17 at 06:00 Glucose (Glutose) 15 gm Q15M PRN PO DECREASED GLUCOSE; Start 06/14/17 at 06:00 Glucose (Glutose) 22.5 gm Q15M PRN PO DECREASED GLUCOSE; Start 06/14/17 at 06: 00 Dextrose (D50w Syringe) 25 ml Q15M PRN IV DECREASED GLUCOSE Last administered on 06/17/17 04:41; Admin Dose 25 ML; Start 06/14/17 at 06:00 Dextrose (D50w Syringe) 50 ml Q15M PRN IV DECREASED GLUCOSE; Start 06/14/17 at 06:00 Glucagon (Glucagen) 1 mg Q15M PRN IM DECREASED GLUCOSE; Start 06/14/17 at 06: 00 Glucose (Glutose) 15 gm Q15M PRN BUCCAL DECREASED GLUCOSE; Start 06/14/17 at 06:00 Enoxaparin Sodium (Lovenox) 60 mg DAILY SC Last administered on 07/12/17 09:02 ; Admin Dose 60 MG; Start 06/17/17 at 09:00 IV Flush (NS 10 ml) 10 ml PRN PRN IV IV PROTOCOL; Start 06/16/17 at 14:00 Haloperidol (Haldol) 1 mg Q12 PRN IV agitation Last administered on 06/16/17 21:56; Admin Dose 1 MG; Start 06/16/17 at 20:30 Metoprolol Tartrate (Lopressor) 50 mg BID PO Last administered on 06/23/17 20 :02; Admin Dose 50 MG; Start 06/19/17 at 21:00; Status Future hold Diltiazem HCl (Cardizem) 60 mg Q8 GTB Last administered on 07/12/17 06:17; Admin Dose 60 MG; Start 06/23/17 at 14:00; Status Future hold Hydralazine HCl (Apresoline) 25 mg Q8 PO Last administered on 07/12/17 06:17; Admin Dose 25 MG; Start 06/30/17 at 14:00 Carvedilol (Coreg) 6.25 mg BID PO Last administered on 07/11/17 21:20; Admin Dose 6.25 MG; Start 07/02/17 at 21:00 Pantoprazole (Protonix Tab) 40 mg BID@,18 PO Last administered on 07/12/17 06:13; Admin Dose 40 MG; Start 07/02/17 at 18:00 Ferrous Sulfate (Ferrous Sulfate (Ec)) 325 mg DAILY PO Last administered on 09:01; Admin Dose 325 MG; Start 07/06/17 at 12:00 Nystatin (Nystatin Powder) 1 applic BID TOP Last administered on 07/12/17 09: 02; Admin Dose 1 APPLIC; Start 07/10/17 at 21:00 Triamcinolone Acetonide (Kenalog 0.025% Lotion) 1 applic BID TOP Last administered on 07/12/17 09:02; Admin Dose 1 APPLIC; Start 07/11/17 at 00:00 Diphenhydramine HCl (Benadryl) 50 mg Q6H PRN IV rash/itching Last administered on 07/11/17 05:43; Admin Dose 50 MG; Start 07/11/17 at 00:00 WALKER SUMMERS M.D. Jul 12, 2017 12:31
[2017-07-12] MEDS ORDERED: POTASSIUM CHLORIDE (SR) 20 MEQ TAB PO STA (12:37)
[2017-07-12] MEDS ORDERED: MAGNESIUM SULFATE 2 GM/50 ML 50 ML IVPB ONE (13:00)
--- NOTE | 2017-07-12 19:43 | CONS ---
Date/Time of Note Date/Time of Note DATE: 07/12/17 TIME: 19:41 Consult Date/Type/Reason Admit Date/Time Jun 14, 2017 at 09:27 Type of Consultation: Pulmonary Ordering Provider: SARAH VINCENT Subjective No events overnight Objective Vital Signs Date Time Temp Pulse Resp B/P Pulse Ox O2 Delivery O2 Flow Rate FiO2 07/12/17 16:32 75 07/12/17 15:25 96 30 07/12/17 15:17 98.0 16 126/64 07/12/17 09:02 Nasal Cannula 3.0 Intake and Output 07/11/17 07/11/17 07/12/17 15:00 23:00 07:00 Intake Total 300 ml Output Total 500 ml Balance -200 ml Exam HEENT: Neck supple; no JVD; no LAD CVS: Irreg irreg, S1 and S2 CHEST: Clear ABD: Soft, NT, + BS EXT: No c/c; + edema Results/Medications Result Diagram: 07/12/17 0616 07/12/17 0616 Results 24 hrs Laboratory Tests Test 07/11/17 21:15 07/12/17 06:16 07/12/17 08:59 07/12/17 11:41 Bedside Glucose 92 75 113 White Blood Count 9.0 # Red Blood Count 3.27 L Hemoglobin 9.6 L Hematocrit 30.3 L Mean Corpuscular Volume 92.7 Mean Corpuscular Hemoglobin 29.4 Mean Corpuscular Hemoglobin Concent 31.7 L Red Cell Distribution Width 15.7 H Platelet Count 152 Mean Platelet Volume 10.4 Neutrophils % 71.3 Lymphocytes % 16.2 Monocytes % 7.3 Eosinophils % 4.7 Basophils % 0.2 Nucleated Red Blood Cells % 0.0 Neutrophils # 6.4 Lymphocytes # 1.5 Monocytes # 0.7 Eosinophils # 0.4 Basophils # 0.0 Nucleated Red Blood Cells # 0.0 Sodium Level 138 Potassium Level 3.4 L Chloride Level 92 L Carbon Dioxide Level 43 *H Anion Gap 6 L Blood Urea Nitrogen 30 H Creatinine 1.59 H Glucose Level 76 Calcium Level 8.1 L Magnesium Level 1.7 Test 07/12/17 17:47 Bedside Glucose 81 Medications Current Medications Ondansetron HCl (Zofran Inj) 4 mg Q6H PRN IV NAUSEA AND/OR VOMITING Last administered on 06/27/17t 21:40; Admin Dose 4 MG; Start 06/13/17 at 15:30 Acetaminophen (Tylenol Tab) 650 mg Q6H PRN PO PAIN LEVEL 1-3 OR FEVER Last administered on 06/24/17 16:33; Admin Dose 650 MG; Start 06/13/17 at 15:30 Docusate Sodium (Colace) 100 mg Q12H PRN PO CONSTIPATION; Start 06/13/17 at 15 :30 Magnesium Hydroxide (Milk Of Mag) 30 ml DAILY PRN PO CONSTIPATION Last administered on 07/02/17 08:51; Admin Dose 30 ML; Start 06/13/17 at 15:30 Hydralazine HCl (Apresoline) 10 mg Q6H PRN IV ELEVATED BLOOD PRESSURE Last administered on 06/25/17 08:43; Admin Dose 10 MG; Start 06/13/17 at 15:30 Nitroglycerin (Nitroglycerin (Sl Tab) 0.4 Mg) 1 tab Q5M PRN SL ANGINA; Start 06/13/17 at 15:30 Atorvastatin Calcium (Lipitor) 10 mg HS PO Last administered on 06/16/17 21: 47; Admin Dose 10 MG; Start 06/13/17 at 21:00; Status Future Hold Levothyroxine Sodium (Synthroid) 100 mcg DAILY PO Last administered on 09:01; Admin Dose 100 MCG; Start 06/14/17 at 09:00 Montelukast Sodium (Singulair) 10 mg QHS PO Last administered on 07/11/17 21: 17; Admin Dose 10 MG; Start 06/13/17 at 21:00 Insulin Glargine (Lantus) 10 unit DAILY@20 SC ; Start 06/14/17 at 20:00; Status Future Hold Diagnostic Test (Pha) (Accu-Chek) 1 ea 02 XX Last administered on 06/24/17 02 :03; Admin Dose 1 EA; Start 06/15/17 at 02:00 Miscellaneous Information 1 ea NOTE XX ; Start 06/14/17 at 06:00 Glucose (Glutose) 15 gm Q15M PRN PO DECREASED GLUCOSE; Start 06/14/17 at 06:00 Glucose (Glutose) 22.5 gm Q15M PRN PO DECREASED GLUCOSE; Start 06/14/17 at 06: 00 Dextrose (D50w Syringe) 25 ml Q15M PRN IV DECREASED GLUCOSE Last administered on 06/17/17 04:41; Admin Dose 25 ML; Start 06/14/17 at 06:00 Dextrose (D50w Syringe) 50 ml Q15M PRN IV DECREASED GLUCOSE; Start 06/14/17 at 06:00 Glucagon (Glucagen) 1 mg Q15M PRN IM DECREASED GLUCOSE; Start 06/14/17 at 06: 00 Glucose (Glutose) 15 gm Q15M PRN BUCCAL DECREASED GLUCOSE; Start 06/14/17 at 06:00 Enoxaparin Sodium (Lovenox) 60 mg DAILY SC Last administered on 07/12/17 09:02 ; Admin Dose 60 MG; Start 06/17/17 at 09:00 IV Flush (NS 10 ml) 10 ml PRN PRN IV IV PROTOCOL; Start 06/16/17 at 14:00 Haloperidol (Haldol) 1 mg Q12 PRN IV agitation Last administered on 06/16/17 21:56; Admin Dose 1 MG; Start 06/16/17 at 20:30 Metoprolol Tartrate (Lopressor) 50 mg BID PO Last administered on 06/23/17 20 :02; Admin Dose 50 MG; Start 06/19/17 at 21:00; Status Future hold Diltiazem HCl (Cardizem) 60 mg Q8 GTB Last administered on 07/12/17 06:17; Admin Dose 60 MG; Start 06/23/17 at 14:00; Status Future hold Hydralazine HCl (Apresoline) 25 mg Q8 PO Last administered on 07/12/17 06:17; Admin Dose 25 MG; Start 06/30/17 at 14:00 Carvedilol (Coreg) 6.25 mg BID PO Last administered on 07/11/17 21:20; Admin Dose 6.25 MG; Start 07/02/17 at 21:00 Pantoprazole (Protonix Tab) 40 mg BID@,18 PO Last administered on 07/12/17 17:49; Admin Dose 40 MG; Start 07/02/17 at 18:00 Ferrous Sulfate (Ferrous Sulfate (Ec)) 325 mg DAILY PO Last administered on 09:01; Admin Dose 325 MG; Start 07/06/17 at 12:00 Nystatin (Nystatin Powder) 1 applic BID TOP Last administered on 07/12/17 09: 02; Admin Dose 1 APPLIC; Start 07/10/17 at 21:00 Triamcinolone Acetonide (Kenalog 0.025% Lotion) 1 applic BID TOP Last administered on 07/12/17 09:02; Admin Dose 1 APPLIC; Start 07/11/17 at 00:00 Diphenhydramine HCl (Benadryl) 50 mg Q6H PRN IV rash/itching Last administered on 07/11/17 05:43; Admin Dose 50 MG; Start 07/11/17 at 00:00 Assessment/Plan Additional Assessment/Plan IMP: 1. Acute hypercapnic respiratory failure, continues to request BiPAP although no evidence of respiratory distress or desaturation. 2. HTN 3. Atrial fibrillation olled 4. Diabetes mellitus. 5. Status post shock. 6. Renal insufficiency. RECS: 1. Continue BiPAP at night. As needed. Encourage off BiPAP during the day. 2. Rate control per cardiology. 3. Avoid sedation. 4. Deep venous thrombosis and gastrointestinal prophylaxis. 5. Aspiration precautions. 6. PT/OT . MEGAN VARGAS MD Jul 12, 2017 19:43
[2017-07-12] MEDS: MONTELUKAST 10 MG TAB PO SCH (21:06)
--- NOTE | 2017-07-12 23:35 | PN ---
Date/Time of Note Date/Time of Note DATE: 07/12/17 TIME: 23:35 Assessment/Plan VTE Prophylaxis VTE Prophylaxis Intervention: other (lovenox) Lines/Catheters IV Catheter Type (from Nrsg): PICC Line Central line still needed: No Urinary Cath still in place: Yes Reason Cath still needed: terminal illness/intractable pain Assessment/Plan Assessment/Plan 1. hypercapnic resp failure--s/p extubation 2. cad/ a.fib/ chf/ htn 3. dm 4. ckd II/ anemia 5. hypothyroidism 6. weak ---per pulm, cont bi-pap ---per cards ---per renal ---continue all supportive cares ---replace calcium, potassium ---prepping snf transfer sometime next week Subjective 24 Hr Interval Summary Free Text/Dictation tired, no cp, less sob problem Exam/Review of Systems Vital Signs Vitals Vital Signs Date Time Temp Pulse Resp B/P Pulse Ox O2 Delivery O2 Flow Rate FiO2 07/12/17 23:15 81 98 30 07/12/17 20:36 98.6 16 118/67 07/12/17 09:02 Nasal Cannula 3.0 Intake and Output 07/11/17 07/11/17 07/12/17 15:00 23:00 07:00 Intake Total 300 ml Output Total 500 ml Balance -200 ml Exam resp--less bs bibasilar cardiac--irreg irreg abd--soft, nd, nt no edema mottled red skin complex Results Result Diagram: 07/12/17 0616 07/12/17 0616 Results 24 hrs Laboratory Tests Test 07/12/17 06:16 07/12/17 08:59 07/12/17 11:41 07/12/17 17:47 White Blood Count 9.0 # Red Blood Count 3.27 L Hemoglobin 9.6 L Hematocrit 30.3 L Mean Corpuscular Volume 92.7 Mean Corpuscular Hemoglobin 29.4 Mean Corpuscular Hemoglobin Concent 31.7 L Red Cell Distribution Width 15.7 H Platelet Count 152 Mean Platelet Volume 10.4 Neutrophils % 71.3 Lymphocytes % 16.2 Monocytes % 7.3 Eosinophils % 4.7 Basophils % 0.2 Nucleated Red Blood Cells % 0.0 Neutrophils # 6.4 Lymphocytes # 1.5 Monocytes # 0.7 Eosinophils # 0.4 Basophils # 0.0 Nucleated Red Blood Cells # 0.0 Sodium Level 138 Potassium Level 3.4 L Chloride Level 92 L Carbon Dioxide Level 43 *H Anion Gap 6 L Blood Urea Nitrogen 30 H Creatinine 1.59 H Glucose Level 76 Calcium Level 8.1 L Magnesium Level 1.7 Bedside Glucose 75 113 81 Medications Medications Current Medications Ondansetron HCl (Zofran Inj) 4 mg Q6H PRN IV NAUSEA AND/OR VOMITING Last administered on 06/27/17 21:40; Admin Dose 4 MG; Start 06/13/17 at 15:30 Acetaminophen (Tylenol Tab) 650 mg Q6H PRN PO PAIN LEVEL 1-3 OR FEVER Last administered on 06/24/17 16:33; Admin Dose 650 MG; Start 06/13/17 at 15:30 Docusate Sodium (Colace) 100 mg Q12H PRN PO CONSTIPATION; Start 06/13/17 at 15 :30 Magnesium Hydroxide (Milk Of Mag) 30 ml DAILY PRN PO CONSTIPATION Last administered on 07/02/17 08:51; Admin Dose 30 ML; Start 06/13/17 at 15:30 Hydralazine HCl (Apresoline) 10 mg Q6H PRN IV ELEVATED BLOOD PRESSURE Last administered on 06/25/17 08:43; Admin Dose 10 MG; Start 06/13/17 at 15:30 Nitroglycerin (Nitroglycerin (Sl Tab) 0.4 Mg) 1 tab Q5M PRN SL ANGINA; Start 06/13/17 at 15:30 Atorvastatin Calcium (Lipitor) 10 mg HS PO Last administered on 06/16/17 21: 47; Admin Dose 10 MG; Start 06/13/17 at 21:00; Status Future Hold Levothyroxine Sodium (Synthroid) 100 mcg DAILY PO Last administered on 09:01; Admin Dose 100 MCG; Start 06/14/17 at 09:00 Montelukast Sodium (Singulair) 10 mg QHS PO Last administered on 07/12/17 21: 06; Admin Dose 10 MG; Start 06/13/17 at 21:00 Insulin Glargine (Lantus) 10 unit DAILY@20 SC ; Start 06/14/17 at 20:00; Status Future Hold Diagnostic Test (Pha) (Accu-Chek) 1 02 XX Last administered on 06/24/17 02 :03; Admin Dose 1 EA; Start 06/15/17 at 02:00 Miscellaneous Information 1 ea NOTE XX ; Start 06/14/17 at 06:00 Glucose (Glutose) 15 gm Q15M PRN PO DECREASED GLUCOSE; Start 06/14/17 at 06:00 Glucose (Glutose) 22.5 gm Q15M PRN PO DECREASED GLUCOSE; Start 06/14/17 at 06: 00 Dextrose (D50w Syringe) 25 ml Q15M PRN IV DECREASED GLUCOSE Last administered on 06/17/17 04:41; Admin Dose 25 ML; Start 06/14/17 at 06:00 Dextrose (D50w Syringe) 50 ml Q15M PRN IV DECREASED GLUCOSE; Start 06/14/17 at 06:00 Glucagon (Glucagen) 1 mg Q15M PRN IM DECREASED GLUCOSE; Start 06/14/17 at 06: 00 Glucose (Glutose) 15 gm Q15M PRN BUCCAL DECREASED GLUCOSE; Start 06/14/17 at 06:00 Enoxaparin Sodium (Lovenox) 60 mg DAILY SC Last administered on 07/12/17 09:02 ; Admin Dose 60 MG; Start 06/17/17 at 09:00 IV Flush (NS 10 ml) 10 ml PRN PRN IV IV PROTOCOL; Start 06/16/17 at 14:00 Haloperidol (Haldol) 1 mg Q12 PRN IV agitation Last administered on 06/16/17 21:56; Admin Dose 1 MG; Start 06/16/17 at 20:30 Metoprolol Tartrate (Lopressor) 50 mg BID PO Last administered on 06/23/17 20 :02; Admin Dose 50 MG; Start 06/19/17 at 21:00; Status Future hold Diltiazem HCl (Cardizem) 60 mg Q8 GTB Last administered on 07/12/17 21:06; Admin Dose 60 MG; Start 06/23/17 at 14:00; Status Future hold Hydralazine HCl (Apresoline) 25 mg Q8 PO Last administered on 07/12/17 21:07; Admin Dose 25 MG; Start 06/30/17 at 14:00 Carvedilol (Coreg) 6.25 mg BID PO Last administered on 07/12/17 21:05; Admin Dose 6.25 MG; Start 07/02/17 at 21:00 Pantoprazole (Protonix Tab) 40 mg BID@,18 PO Last administered on 07/12/17 17:49; Admin Dose 40 MG; Start 07/02/17 at 18:00 Ferrous Sulfate (Ferrous Sulfate (Ec)) 325 mg DAILY PO Last administered on 09:01; Admin Dose 325 MG; Start 07/06/17 at 12:00 Nystatin (Nystatin Powder) 1 applic BID TOP Last administered on 07/12/17 21: 06; Admin Dose 1 APPLIC; Start 07/10/17 at 21:00 Triamcinolone Acetonide (Kenalog 0.025% Lotion) 1 applic BID TOP Last administered on 07/12/17 21:06; Admin Dose 1 APPLIC; Start 07/11/17 at 00:00 Diphenhydramine HCl (Benadryl) 50 mg Q6H PRN IV rash/itching Last administered on 07/11/17 05:43; Admin Dose 50 MG; Start 07/11/17 at 00:00 TIMOTEO EDUARDO MD Jul 12, 2017 23:35
[2017-07-13] VITALS (20 sets, daily range): BP systolic 95–163; BP diastolic 60–92; PULSE 62–108; RESP 17–22
[2017-07-13] MEDS ORDERED: POTASSIUM CHLORIDE (SR) 20 MEQ TAB PO ONE (00:02)
[2017-07-13 06:18] LABS: BASOPHILS % 0.2 % (0.0-2.0); EOSINOPHILS # 0.5 10^3/ul (0.0-0.5); EOSINOPHILS % 5.4 % (0.0-7.0); HEMATOCRIT 30.6 % (37.0-47.0); HEMOGLOBIN 9.7 g/dl (12.0-16.0); LYMPHOCYTES # 1.5 10^3/ul (0.8-2.9); MEAN CORPUSCULAR HEMOGLOBIN 29.8 pg (29.0-33.0); MEAN CORPUSCULAR HGB CONC 31.7 g/dl (32.0-37.0); MEAN CORPUSCULAR VOLUME 94.2 fl (82.0-101.0); MEAN PLATELET VOLUME 10.5 fl (7.4-10.4); MONOCYTE # 0.7 10^3/ul (0.3-0.9); MONOCYTES % 7.5 % (0.0-11.0); NEUTROPHILS % 71.6 % (39.0-77.0); PLATELET COUNT 150 10^3/UL (140-415); RED BLOOD COUNT 3.25 10^6/ul (4.20-5.40); RED CELL DISTRIBUTION WIDTH 15.5 % (11.5-14.5); WHITE BLOOD COUNT 9.8 10^3/ul (4.8-10.8)
[2017-07-13] MEDS: PANTOPRAZOLE (EC) 40 MG TAB PO SCH ×2 (06:33→17:14)
[2017-07-13] MEDS: DILTIAZEM 60 MG TAB GTB SCH ×3 (06:36→21:52)
[2017-07-13 06:59] LABS: CALCIUM 8.2 mg/dl (8.4-10.2); CREATININE 1.54 mg/dl (0.44-1.00); POTASSIUM 4.6 mmol/L (3.5-5.1)
[2017-07-13] MEDS: INSULIN ASPART [NOVOLOG] 3 ML PEN SC SCH ×4 (07:25→19:57)
[2017-07-13] MEDS: FERROUS SULFATE (EC) 325 MG TAB PO SCH (08:42)
[2017-07-13] MEDS: CALCIUM CARBONATE 1.25 GM TAB PO SCH ×2 (08:42→19:56)
[2017-07-13] MEDS: NYSTATIN 30 GM POWDER BTL TOP SCH ×2 (08:43→19:58)
[2017-07-13] MEDS: BALSAM PERU/CASTOR OIL 60 GM TUBE TOP SCH ×2 (08:43→19:58)
[2017-07-13] MEDS: LEVOTHYROXINE 100 MCG TAB PO SCH (08:43)
[2017-07-13] MEDS: ENOXAPARIN 60 MG/0.6 ML SYG SC SCH (08:44)
[2017-07-13] MEDS: TRIAMCINOLONE ACET 0.025% 60 ML LOT TOP SCH ×2 (09:02→19:58)
--- NOTE | 2017-07-13 10:32 | RADRPT ---
PROCEDURE: XR Chest. CLINICAL INDICATION: Congestive heart failure . TECHNIQUE: Single frontal chest x-ray. COMPARISON: 07/07/2017 FINDINGS: There is left-sided PICC line in place unchanged. Small bilateral pleural effusions are stable. Ther e are no alveolar infiltrates or edema. .. Mild cardiomegaly with calcific atherosclerosis of the a lyudmila is present.. The osseous structures are intact. IMPRESSION: Small bilateral pleural effusions unchanged. Left arm PICC line in place.. RPTAT: QQ .Bao Perez MD, MD Date Time Electronically viewed and signed by .Bao Perez MD, on 07/13/2017 10:32 .L/
--- NOTE | 2017-07-13 10:48 | CONS ---
Date/Time of Note Date/Time of Note DATE: 07/13/17 TIME: 10:45 Assessment/Plan Assessment/Plan Additional Assessment/Plan Atrial fibrillation rate controlled Renal failure Hypercarbic respiratory failure s/p extubation Hypothyroid Pleural effusion-s/p thoracentesis Anemia s/p blood transfusion Hemodynamically stable Heart failure clinically compensated Atrial fibrillation rate controlled Continue Coreg and Diltiazem Continue Lovenox Continue Hydralazine Continue Levothyroxine Avoid Diuretics Consultation Date/Type/Reason Admit Date/Time Jun 14, 2017 at 09:27 Initial Consult Date Type of Consultation: Pulmonary Referring Provider: SARAH VINCENT Exam/Review of Systems Vital Signs Vitals Vital Signs Date Time Temp Pulse Resp B/P Pulse Ox O2 Delivery O2 Flow Rate FiO2 07/13/17 08:41 79 07/13/17 08:10 97 30 07/13/17 07:45 98.7 17 120/60 07/13/17 07:43 Nasal Cannula 3.0 Intake and Output 07/12/17 07/12/17 07/13/17 15:00 23:00 07:00 Intake Total 800 ml 500 ml Output Total 450 ml Balance 800 ml 50 ml Exam Constitutional: alert, oriented Head: atraumatic, normocephalic Neck: non-tender, supple Respiratory: clear to auscultation Cardiovascular: irregular rhythm (no m/r/g) Gastrointestinal: nl liver, spleen, non-tender, soft Results Result Diagram: 07/13/17 0532 07/13/17 0532 Results 24 hrs Laboratory Tests Test 07/12/17 11:41 07/12/17 17:47 07/13/17 05:32 07/13/17 06:29 Bedside Glucose 113 81 White Blood Count 9.8 Red Blood Count 3.25 L Hemoglobin 9.7 L Hematocrit 30.6 L Mean Corpuscular Volume 94.2 Mean Corpuscular Hemoglobin 29.8 Mean Corpuscular Hemoglobin Concent 31.7 L Red Cell Distribution Width 15.5 H Platelet Count 150 Mean Platelet Volume 10.5 H Neutrophils % 71.6 Lymphocytes % 15.0 Monocytes % 7.5 Eosinophils % 5.4 Basophils % 0.2 Nucleated Red Blood Cells % 0.0 Neutrophils # 7.0 Lymphocytes # 1.5 Monocytes # 0.7 Eosinophils # 0.5 Basophils # 0.0 Nucleated Red Blood Cells # 0.0 Sodium Level 138 Potassium Level 4.6 Chloride Level 95 L Carbon Dioxide Level 39 H Anion Gap 9 Blood Urea Nitrogen 26 H Creatinine 1.54 H Glucose Level 75 Calcium Level 8.2 L Lab Scanned Report BLOOD TRANSFUSION Test 07/13/17 08:14 Bedside Glucose 80 Medications Medications Current Medications Ondansetron HCl (Zofran Inj) 4 mg Q6H PRN IV NAUSEA AND/OR VOMITING Last administered on 06/27/17 21:40; Admin Dose 4 MG; Start 06/13/17 at 15:30 Acetaminophen (Tylenol Tab) 650 mg Q6H PRN PO PAIN LEVEL 1-3 OR FEVER Last administered on 06/24/17 16:33; Admin Dose 650 MG; Start 06/13/17 at 15:30 Docusate Sodium (Colace) 100 mg Q12H PRN PO CONSTIPATION; Start 06/13/17 at 15 :30 Magnesium Hydroxide (Milk Of Mag) 30 ml DAILY PRN PO CONSTIPATION Last administered on 07/02/17 08:51; Admin Dose 30 ML; Start 06/13/17 at 15:30 Hydralazine HCl (Apresoline) 10 mg Q6H PRN IV ELEVATED BLOOD PRESSURE Last administered on 06/25/17 08:43; Admin Dose 10 MG; Start 06/13/17 at 15:30 Nitroglycerin (Nitroglycerin (Sl Tab) 0.4 Mg) 1 tab Q5M PRN SL ANGINA; Start 06/13/17 at 15:30 Atorvastatin Calcium (Lipitor) 10 mg HS PO Last administered on 06/16/17 21: 47; Admin Dose 10 MG; Start 06/13/17 at 21:00; Status Future Hold Levothyroxine Sodium (Synthroid) 100 mcg DAILY PO Last administered on 08:43; Admin Dose 100 MCG; Start 06/14/17 at 09:00 Montelukast Sodium (Singulair) 10 mg QHS PO Last administered on 07/12/17 21: 06; Admin Dose 10 MG; Start 06/13/17 at 21:00 Insulin Glargine (Lantus) 10 unit DAILY@20 SC ; Start 06/14/17 at 20:00; Status Future Hold Diagnostic Test (Pha) (Accu-Chek) 1 ea XX Last administered on 06/24/17 02 :03; Admin Dose 1 EA; Start 06/15/17 at 02:00 Miscellaneous Information 1 ea NOTE XX ; Start 06/14/17 at 06:00 Glucose (Glutose) 15 gm Q15M PRN PO DECREASED GLUCOSE; Start 06/14/17 at 06:00 Glucose (Glutose) 22.5 gm Q15M PRN PO DECREASED GLUCOSE; Start 06/14/17 at 06: 00 Dextrose (D50w Syringe) 25 ml Q15M PRN IV DECREASED GLUCOSE Last administered on 06/17/17 04:41; Admin Dose 25 ML; Start 06/14/17 at 06:00 Dextrose (D50w Syringe) 50 ml Q15M PRN IV DECREASED GLUCOSE; Start 06/14/17 at 06:00 Glucagon (Glucagen) 1 mg Q15M PRN IM DECREASED GLUCOSE; Start 06/14/17 at 06: 00 Glucose (Glutose) 15 gm Q15M PRN BUCCAL DECREASED GLUCOSE; Start 06/14/17 at 06:00 Enoxaparin Sodium (Lovenox) 60 mg DAILY SC Last administered on 07/13/17 08: 44; Admin Dose 60 MG; Start 06/17/17 at 09:00 IV Flush (NS 10 ml) 10 ml PRN PRN IV IV PROTOCOL; Start 06/16/17 at 14:00 Haloperidol (Haldol) 1 mg Q12 PRN IV agitation Last administered on 06/16/17 21:56; Admin Dose 1 MG; Start 06/16/17 at 20:30 Metoprolol Tartrate (Lopressor) 50 mg BID PO Last administered on 06/23/17 20 :02; Admin Dose 50 MG; Start 06/19/17 at 21:00; Status Future hold Diltiazem HCl (Cardizem) 60 mg Q8 GTB Last administered on 07/13/17 06:36; Admin Dose 60 MG; Start 06/23/17 at 14:00; Status Future hold Hydralazine HCl (Apresoline) 25 mg Q8 PO Last administered on 07/13/17 06:37 ; Admin Dose 25 MG; Start 06/30/17 at 14:00 Carvedilol (Coreg) 6.25 mg BID PO Last administered on 07/13/17 08:42; Admin Dose 6.25 MG; Start 07/02/17 at 21:00 Pantoprazole (Protonix Tab) 40 mg BID@06,18 PO Last administered on 07/13/17 06:33; Admin Dose 40 MG; Start 07/02/17 at 18:00 Ferrous Sulfate (Ferrous Sulfate (Ec)) 325 mg DAILY PO Last administered on 08:42; Admin Dose 325 MG; Start 07/06/17 at 12:00 Nystatin (Nystatin Powder) 1 applic BID TOP Last administered on 07/13/17 08: 43; Admin Dose 1 APPLIC; Start 07/10/17 at 21:00 Triamcinolone Acetonide (Kenalog 0.025% Lotion) 1 applic BID TOP Last administered on 07/13/17 09:02; Admin Dose 1 APPLIC; Start 07/11/17 at 00:00 Diphenhydramine HCl (Benadryl) 50 mg Q6H PRN IV rash/itching Last administered on 07/11/17 05:43; Admin Dose 50 MG; Start 07/11/17 at 00:00 Calcium Carbonate (Oyster Shell Calcium) 1.25 gm BID PO Last administered on 08:42; Admin Dose 1.25 GM; Start 07/13/17 at 09:00 WALKER SUMMERS M.D. Jul 13, 2017 10:48
--- NOTE | 2017-07-13 18:36 | CONS ---
Date/Time of Note Date/Time of Note DATE: 07/13/17 TIME: 18:35 Consult Date/Type/Reason Admit Date/Time Jun 14, 2017 at 09:27 Type of Consultation: Pulmonary Ordering Provider: SARAH VINCENT Subjective No overnight events. Objective Vital Signs Date Time Temp Pulse Resp B/P Pulse Ox O2 Delivery O2 Flow Rate FiO2 07/13/17 17:20 73 98 30 07/13/17 16:21 98.9 18 163/92 07/13/17 07:43 Nasal Cannula 3.0 Intake and Output 07/12/17 07/12/17 07/13/17 14:59 22:59 06:59 Intake Total 800 ml 500 ml Output Total 450 ml Balance 800 ml 50 ml Exam HEENT: Neck supple; no JVD; no LAD CVS: Irreg irreg, S1 and S2 CHEST: Clear ABD: Soft, NT, + BS EXT: No c/c; + edema Results/Medications Result Diagram: 07/13/17 0532 07/13/17 0532 Results 24 hrs Laboratory Tests Test 07/13/17 05:32 07/13/17 06:29 07/13/17 08:14 07/13/17 11:42 White Blood Count 9.8 Red Blood Count 3.25 L Hemoglobin 9.7 L Hematocrit 30.6 L Mean Corpuscular Volume 94.2 Mean Corpuscular Hemoglobin 29.8 Mean Corpuscular Hemoglobin Concent 31.7 L Red Cell Distribution Width 15.5 H Platelet Count 150 Mean Platelet Volume 10.5 H Neutrophils % 71.6 Lymphocytes % 15.0 Monocytes % 7.5 Eosinophils % 5.4 Basophils % 0.2 Nucleated Red Blood Cells % 0.0 Neutrophils # 7.0 Lymphocytes # 1.5 Monocytes # 0.7 Eosinophils # 0.5 Basophils # 0.0 Nucleated Red Blood Cells # 0.0 Sodium Level 138 Potassium Level 4.6 Chloride Level 95 L Carbon Dioxide Level 39 H Anion Gap 9 Blood Urea Nitrogen 26 H Creatinine 1.54 H Glucose Level 75 Calcium Level 8.2 L Lab Scanned Report BLOOD TRANSFUSION Bedside Glucose 80 86 Test 07/13/17 17:10 Bedside Glucose 78 Medications Current Medications Ondansetron HCl (Zofran Inj) 4 mg Q6H PRN IV NAUSEA AND/OR VOMITING Last administered on 06/27/17t 21:40; Admin Dose 4 MG; Start 06/13/17 at 15:30 Acetaminophen (Tylenol Tab) 650 mg Q6H PRN PO PAIN LEVEL 1-3 OR FEVER Last administered on 06/24/17 16:33; Admin Dose 650 MG; Start 06/13/17 at 15:30 Docusate Sodium (Colace) 100 mg Q12H PRN PO CONSTIPATION; Start 06/13/17 at 15 :30 Magnesium Hydroxide (Milk Of Mag) 30 ml DAILY PRN PO CONSTIPATION Last administered on 07/02/17 08:51; Admin Dose 30 ML; Start 06/13/17 at 15:30 Hydralazine HCl (Apresoline) 10 mg Q6H PRN IV ELEVATED BLOOD PRESSURE Last administered on 06/25/17 08:43; Admin Dose 10 MG; Start 06/13/17 at 15:30 Nitroglycerin (Nitroglycerin (Sl Tab) 0.4 Mg) 1 tab Q5M PRN SL ANGINA; Start 06/13/17 at 15:30 Atorvastatin Calcium (Lipitor) 10 mg HS PO Last administered on 06/16/17 21: 47; Admin Dose 10 MG; Start 06/13/17 at 21:00; Status Future Hold Levothyroxine Sodium (Synthroid) 100 mcg DAILY PO Last administered on 08:43; Admin Dose 100 MCG; Start 06/14/17 at 09:00 Montelukast Sodium (Singulair) 10 mg QHS PO Last administered on 07/12/17 21: 06; Admin Dose 10 MG; Start 06/13/17 at 21:00 Insulin Glargine (Lantus) 10 unit DAILY@20 SC ; Start 06/14/17 at 20:00; Status Future Hold Diagnostic Test (Pha) (Accu-Chek) 1 ea 02 XX Last administered on 06/24/17 02 :03; Admin Dose 1 EA; Start 06/15/17 at 02:00 Miscellaneous Information 1 ea NOTE XX ; Start 06/14/17 at 06:00 Glucose (Glutose) 15 gm Q15M PRN PO DECREASED GLUCOSE; Start 06/14/17 at 06:00 Glucose (Glutose) 22.5 gm Q15M PRN PO DECREASED GLUCOSE; Start 06/14/17 at 06: 00 Dextrose (D50w Syringe) 25 ml Q15M PRN IV DECREASED GLUCOSE Last administered on 06/17/17 04:41; Admin Dose 25 ML; Start 06/14/17 at 06:00 Dextrose (D50w Syringe) 50 ml Q15M PRN IV DECREASED GLUCOSE; Start 06/14/17 at 06:00 Glucagon (Glucagen) 1 mg Q15M PRN IM DECREASED GLUCOSE; Start 06/14/17 at 06: 00 Glucose (Glutose) 15 gm Q15M PRN BUCCAL DECREASED GLUCOSE; Start 06/14/17 at 06:00 Enoxaparin Sodium (Lovenox) 60 mg DAILY SC Last administered on 07/13/17 08: 44; Admin Dose 60 MG; Start 06/17/17 at 09:00 IV Flush (NS 10 ml) 10 ml PRN PRN IV IV PROTOCOL; Start 06/16/17 at 14:00 Haloperidol (Haldol) 1 mg Q12 PRN IV agitation Last administered on 06/16/17 21:56; Admin Dose 1 MG; Start 06/16/17 at 20:30 Metoprolol Tartrate (Lopressor) 50 mg BID PO Last administered on 06/23/17 20 :02; Admin Dose 50 MG; Start 06/19/17 at 21:00; Status Future hold Diltiazem HCl (Cardizem) 60 mg Q8 GTB Last administered on 07/13/17 06:36; Admin Dose 60 MG; Start 06/23/17 at 14:00; Status Future hold Hydralazine HCl (Apresoline) 25 mg Q8 PO Last administered on 07/13/17 06:37 ; Admin Dose 25 MG; Start 06/30/17 at 14:00 Carvedilol (Coreg) 6.25 mg BID PO Last administered on 07/13/17 08:42; Admin Dose 6.25 MG; Start 07/02/17 at 21:00 Pantoprazole (Protonix Tab) 40 mg BID@,18 PO Last administered on 07/13/17 17:14; Admin Dose 40 MG; Start 07/02/17 at 18:00 Ferrous Sulfate (Ferrous Sulfate (Ec)) 325 mg DAILY PO Last administered on 08:42; Admin Dose 325 MG; Start 07/06/17 at 12:00 Nystatin (Nystatin Powder) 1 applic BID TOP Last administered on 07/13/17 08: 43; Admin Dose 1 APPLIC; Start 07/10/17 at 21:00 Triamcinolone Acetonide (Kenalog 0.025% Lotion) 1 applic BID TOP Last administered on 07/13/17 09:02; Admin Dose 1 APPLIC; Start 07/11/17 at 00:00 Diphenhydramine HCl (Benadryl) 50 mg Q6H PRN IV rash/itching Last administered on 07/11/17 05:43; Admin Dose 50 MG; Start 07/11/17 at 00:00 Calcium Carbonate (Oyster Shell Calcium) 1.25 gm BID PO Last administered on 08:42; Admin Dose 1.25 GM; Start 07/13/17 at 09:00 Assessment/Plan Additional Assessment/Plan IMP: 1. s/p Acute hypercapnic respiratory failure 2. HTN 3. Atrial fibrillation 4. Diabetes mellitus. 5. Status post shock. 6. Renal insufficiency. RECS: 1. Continue BiPAP at night and as needed. 2. Rate control per cardiology. 3. Avoid sedation 4. Deep venous thrombosis and gastrointestinal prophylaxis. 5. Aspiration precautions. 6. PT/OT/MEGAN SERRANO MD Jul 13, 2017 18:36
[2017-07-13] MEDS: MONTELUKAST 10 MG TAB PO SCH (19:56)
--- NOTE | 2017-07-13 19:58 | PN ---
Date/Time of Note Date/Time of Note DATE: 07/13/17 TIME: 19:51 Assessment/Plan VTE Prophylaxis VTE Prophylaxis Intervention: LMWH Lines/Catheters IV Catheter Type (from Nrsg): PICC Line Central line still needed: No Urinary Cath still in place: Yes Reason Cath still needed: terminal illness/intractable pain Assessment/Plan Assessment/Plan 1. hypercapnic resp failure, s/p extubation--better oxygenation w/ Bipap 2. a fib/ chf/ cad--still fluctuating high bp & hr 3. arf/ anemia 4. dm 5. debility/ weak musc strength--activity endurance 6. hypothyroidism ---per pulm ---per cards ---advance PT/ OT/ more oob ---family anticipating pt will be transferred to [facility] this week for further rehab Subjective 24 Hr Interval Summary Free Text/Dictation sleepy, using bipap, tired of being in hospital Exam/Review of Systems Vital Signs Vitals Vital Signs Date Time Temp Pulse Resp B/P Pulse Ox O2 Delivery O2 Flow Rate FiO2 07/13/17 19:15 84 07/13/17 17:20 98 30 07/13/17 16:21 98.9 18 163/92 07/13/17 07:43 Nasal Cannula 3.0 Intake and Output 07/12/17 07/12/17 07/13/17 15:00 23:00 07:00 Intake Total 800 ml 500 ml Output Total 450 ml Balance 800 ml 50 ml Exam obese+, using Bipap whenever sleeping, irreg irreg, dec bs bibasilar, no edema Results Result Diagram: 07/13/17 0532 07/13/17 0532 Results 24 hrs Laboratory Tests Test 07/13/17 05:32 07/13/17 06:29 07/13/17 08:14 07/13/17 11:42 White Blood Count 9.8 Red Blood Count 3.25 L Hemoglobin 9.7 L Hematocrit 30.6 L Mean Corpuscular Volume 94.2 Mean Corpuscular Hemoglobin 29.8 Mean Corpuscular Hemoglobin Concent 31.7 L Red Cell Distribution Width 15.5 H Platelet Count 150 Mean Platelet Volume 10.5 H Neutrophils % 71.6 Lymphocytes % 15.0 Monocytes % 7.5 Eosinophils % 5.4 Basophils % 0.2 Nucleated Red Blood Cells % 0.0 Neutrophils # 7.0 Lymphocytes # 1.5 Monocytes # 0.7 Eosinophils # 0.5 Basophils # 0.0 Nucleated Red Blood Cells # 0.0 Sodium Level 138 Potassium Level 4.6 Chloride Level 95 L Carbon Dioxide Level 39 H Anion Gap 9 Blood Urea Nitrogen 26 H Creatinine 1.54 H Glucose Level 75 Calcium Level 8.2 L Lab Scanned Report BLOOD TRANSFUSION Bedside Glucose 80 86 Test 07/13/17 17:10 Bedside Glucose 78 Medications Medications Current Medications Ondansetron HCl (Zofran Inj) 4 mg Q6H PRN IV NAUSEA AND/OR VOMITING Last administered on 06/27/17 21:40; Admin Dose 4 MG; Start 06/13/17 at 15:30 Acetaminophen (Tylenol Tab) 650 mg Q6H PRN PO PAIN LEVEL 1-3 OR FEVER Last administered on 06/24/17 16:33; Admin Dose 650 MG; Start 06/13/17 at 15:30 Docusate Sodium (Colace) 100 mg Q12H PRN PO CONSTIPATION; Start 06/13/17 at 15 :30 Magnesium Hydroxide (Milk Of Mag) 30 ml DAILY PRN PO CONSTIPATION Last administered on 07/02/17 08:51; Admin Dose 30 ML; Start 06/13/17 at 15:30 Hydralazine HCl (Apresoline) 10 mg Q6H PRN IV ELEVATED BLOOD PRESSURE Last administered on 06/25/17 08:43; Admin Dose 10 MG; Start 06/13/17 at 15:30 Nitroglycerin (Nitroglycerin (Sl Tab) 0.4 Mg) 1 tab Q5M PRN SL ANGINA; Start 06/13/17 at 15:30 Atorvastatin Calcium (Lipitor) 10 mg HS PO Last administered on 06/16/17 21: 47; Admin Dose 10 MG; Start 06/13/17 at 21:00; Status Future Hold Levothyroxine Sodium (Synthroid) 100 mcg DAILY PO Last administered on 08:43; Admin Dose 100 MCG; Start 06/14/17 at 09:00 Montelukast Sodium (Singulair) 10 mg QHS PO Last administered on 07/12/17 21: 06; Admin Dose 10 MG; Start 06/13/17 at 21:00 Insulin Glargine (Lantus) 10 unit DAILY@20 SC ; Start 06/14/17 at 20:00; Status Future Hold Diagnostic Test (Pha) (Accu-Chek) 1 ea 02 XX Last administered on 06/24/17 02 :03; Admin Dose 1 EA; Start 06/15/17 at 02:00 Miscellaneous Information 1 ea NOTE XX ; Start 06/14/17 at 06:00 Glucose (Glutose) 15 gm Q15M PRN PO DECREASED GLUCOSE; Start 06/14/17 at 06:00 Glucose (Glutose) 22.5 gm Q15M PRN PO DECREASED GLUCOSE; Start 06/14/17 at 06: 00 Dextrose (D50w Syringe) 25 ml Q15M PRN IV DECREASED GLUCOSE Last administered on 06/17/17 04:41; Admin Dose 25 ML; Start 06/14/17 at 06:00 Dextrose (D50w Syringe) 50 ml Q15M PRN IV DECREASED GLUCOSE; Start 06/14/17 at 06:00 Glucagon (Glucagen) 1 mg Q15M PRN IM DECREASED GLUCOSE; Start 06/14/17 at 06: 00 Glucose (Glutose) 15 gm Q15M PRN BUCCAL DECREASED GLUCOSE; Start 06/14/17 at 06:00 Enoxaparin Sodium (Lovenox) 60 mg DAILY SC Last administered on 07/13/17 08: 44; Admin Dose 60 MG; Start 06/17/17 at 09:00 IV Flush (NS 10 ml) 10 ml PRN PRN IV IV PROTOCOL; Start 06/16/17 at 14:00 Haloperidol (Haldol) 1 mg Q12 PRN IV agitation Last administered on 06/16/17 21:56; Admin Dose 1 MG; Start 06/16/17 at 20:30 Metoprolol Tartrate (Lopressor) 50 mg BID PO Last administered on 06/23/17 20 :02; Admin Dose 50 MG; Start 06/19/17 at 21:00; Status Future hold Diltiazem HCl (Cardizem) 60 mg Q8 GTB Last administered on 07/13/17 06:36; Admin Dose 60 MG; Start 06/23/17 at 14:00; Status Future hold Hydralazine HCl (Apresoline) 25 mg Q8 PO Last administered on 07/13/17 06:37 ; Admin Dose 25 MG; Start 06/30/17 at 14:00 Carvedilol (Coreg) 6.25 mg BID PO Last administered on 07/13/17 08:42; Admin Dose 6.25 MG; Start 07/02/17 at 21:00 Pantoprazole (Protonix Tab) 40 mg BID@,18 PO Last administered on 07/13/17 17:14; Admin Dose 40 MG; Start 07/02/17 at 18:00 Ferrous Sulfate (Ferrous Sulfate (Ec)) 325 mg DAILY PO Last administered on 08:42; Admin Dose 325 MG; Start 07/06/17 at 12:00 Nystatin (Nystatin Powder) 1 applic BID TOP Last administered on 07/13/17 08: 43; Admin Dose 1 APPLIC; Start 07/10/17 at 21:00 Triamcinolone Acetonide (Kenalog 0.025% Lotion) 1 applic BID TOP Last administered on 07/13/17 09:02; Admin Dose 1 APPLIC; Start 07/11/17 at 00:00 Diphenhydramine HCl (Benadryl) 50 mg Q6H PRN IV rash/itching Last administered on 07/11/17 05:43; Admin Dose 50 MG; Start 07/11/17 at 00:00 Calcium Carbonate (Oyster Shell Calcium) 1.25 gm BID PO Last administered on 08:42; Admin Dose 1.25 GM; Start 07/13/17 at 09:00 TIMOTEO EDUARDO MD Jul 13, 2017 19:58
[2017-07-14] VITALS (22 sets, daily range): BP systolic 111–137; BP diastolic 57–70; PULSE 59–88; RESP 16–18
[2017-07-14] MEDS: ACCU-CHEK XX SCH (01:01)
[2017-07-14] MEDS: DILTIAZEM 60 MG TAB GTB SCH ×3 (06:02→21:41)
[2017-07-14] MEDS: PANTOPRAZOLE (EC) 40 MG TAB PO SCH ×2 (06:02→17:06)
[2017-07-14 06:45] LABS: BASOPHILS % 0.3 % (0.0-2.0); EOSINOPHILS # 0.5 10^3/ul (0.0-0.5); HEMATOCRIT 30.2 % (37.0-47.0); HEMOGLOBIN 9.4 g/dl (12.0-16.0); LYMPHOCYTES # 1.3 10^3/ul (0.8-2.9); LYMPHOCYTES % 18.9 % (15.0-51.0); MEAN CORPUSCULAR HEMOGLOBIN 29.6 pg (29.0-33.0); MEAN CORPUSCULAR HGB CONC 31.1 g/dl (32.0-37.0); MEAN PLATELET VOLUME 10.5 fl (7.4-10.4); MONOCYTE # 0.7 10^3/ul (0.3-0.9); MONOCYTES % 10.1 % (0.0-11.0); NEUTROPHIL # 4.2 10^3/ul (1.6-7.5); NEUTROPHILS % 62.4 % (39.0-77.0); PLATELET COUNT 149 10^3/UL (140-415); RED BLOOD COUNT 3.18 10^6/ul (4.20-5.40); RED CELL DISTRIBUTION WIDTH 15.5 % (11.5-14.5); WHITE BLOOD COUNT 6.7 10^3/ul (4.8-10.8)
[2017-07-14 07:01] LABS: CALCIUM 8.3 mg/dl (8.4-10.2); CREATININE 1.48 mg/dl (0.44-1.00); POTASSIUM 4.2 mmol/L (3.5-5.1)
[2017-07-14] MEDS: INSULIN ASPART [NOVOLOG] 3 ML PEN SC SCH ×4 (07:25→21:00)
--- NOTE | 2017-07-14 08:05 | RADRPT ---
PROCEDURE: XR Chest. CLINICAL INDICATION: CHF, shortness of breath. TECHNIQUE: Single frontal view of the chest was obtained. COMPARISON: 07/13/2017. FINDINGS: The cardiomediastinal silhouette demonstrates enlargement of the cardiac silhouette. There are aorti c calcifications. Left-sided PICC stable in position. No significant change in bilateral lower lung opacities with small bilateral pleural effusions, righ t greater than left. No definite pneumothorax. No acute osseous abnormality. IMPRESSION: Cardiomegaly with no significant change in bilateral lower lung opacities with small bilateral pleur al effusions, right greater than left. RPTAT: AAEE Aniya Talley Physician Date Time Electronically viewed and signed by Aniya Talley Physician on 07/14/2017 08:05 /
[2017-07-14 08:10] LABS: AADO2 Arterial 9.8 mmHg (7.0-24.0); Allen Test ACCEPTAB; Arterial Base Excess 9.7 mmol/L (-3.0-3); Arterial COHb 0.3 % (0.0-3.0); Arterial Fraction of Oxyhgb 97.7 % (93.0-99.0); Arterial HCO3 34.8 mmol/L (22.0-26.0); Arterial MetHb 0.3 % (0.0-1.5); MODE NASAL CANNULA
[2017-07-14] MEDS: BALSAM PERU/CASTOR OIL 60 GM TUBE TOP SCH ×2 (08:26→21:47)
[2017-07-14] MEDS: NYSTATIN 30 GM POWDER BTL TOP SCH ×2 (08:26→21:47)
[2017-07-14] MEDS: LEVOTHYROXINE 100 MCG TAB PO SCH (08:26)
[2017-07-14] MEDS: CALCIUM CARBONATE 1.25 GM TAB PO SCH ×2 (08:26→21:42)
[2017-07-14] MEDS: FERROUS SULFATE (EC) 325 MG TAB PO SCH (08:26)
[2017-07-14] MEDS: TRIAMCINOLONE ACET 0.025% 60 ML LOT TOP SCH ×2 (08:27→21:47)
[2017-07-14] MEDS: ENOXAPARIN 60 MG/0.6 ML SYG SC SCH (09:13)
--- NOTE | 2017-07-14 11:22 | PN ---
DATE: 07/14/2017 SUBJECTIVE: The patient is feeling a little bit stronger, had 3 episodes of diarrhea yesterday. OBJECTIVE: VITAL SIGNS: Temperature 98.1, pulse 68, respirations 16, blood pressure 124/57 , oxygen saturation 100% on 2 liters. GENERAL: Well-developed, well-nourished female in no acute distress, sitting up in bed. CHEST: Decreased breath sounds bilateral bases, otherwise clear. HEART: Irregular, but controlled. ABDOMEN: Soft, nontender, nondistended. EXTREMITIES: No cyanosis, clubbing. There is 1+ bilateral lower extremity edema, trace bilateral upper extremity edema. NEUROLOGIC: Nonfocal. LABORATORY DATA: Sodium 138, potassium 4.2, chloride 96, bicarbonate 38, BUN of 23, creatinine 1.48, blood sugar 74, arterial blood gas shows a pH of 7.467, pCO2 of 49, pO2 of 124, oxygen saturation 98.3, hemoglobin 9.4, hematocrit of 30.2. White blood cell count 6.7, platelets 149. Chest x-ray shows bilateral pleural effusions. No significant change from prior chest x-ray. ASSESSMENT AND PLAN 1. Acute respiratory failure with hypercapnia due to Hypoventilation syndrome: improved. Patient continues to require intermittent BiPAP and continued to arrange for BiPAP after discharge. 2. Atrial fibrillation, remains rate controlled. We will continue with addressing medications as needed. 3. Acute combined congestive heart failure/coronary artery disease/hypertension , improved. The patient no longer on diuretics and blood pressure remains more stable. We will continue telemetry for now. 4. Acute on chronic kidney disease, improved. We will continue to monitor. 5. Anemia, stable after transfusion. Continue to follow. 6. Diabetes, stable. Continue medications and diet. 7. Hypothyroidism, stable. Continue with medications. 8. Discharge planning. Will arrange for a halfway facility in the near future. The patient will likely be ready for discharge in the next 24 to 48 hours if she continues to remain stable without problems. Dictated By: MORGAN SNOW MD SR/NTS Conf#: [id number] DID#: [id number] CC: SARAH VINCENT MD;*EndCC* MTDD
--- NOTE | 2017-07-14 11:35 | CONS ---
Date/Time of Note Date/Time of Note DATE: 07/14/17 TIME: 11:31 Assessment/Plan Assessment/Plan Chief Complaint/Hosp Course IMP: 1.Hypotension-improved again with stable BP/NL EF by echo this admit 2. AF with RVR-yesterday apparently had pause 3 seconds and all estrella agents were held- now again tolerating coreg/dilt with good heart rates and no sig eren or pause 3. Renal failure-ongoing but slowly improving 4. Hypercarbic resp failure s/p extubation-improved with BIPAP when sleeping as neceessary 5. Hypothyroid 6. PLeural effusion-s/p thoracentesis 7. Anemia-a/p transfusion with ? transfusion reaction Recc: -Tele -serial ecg's -Continue lovenox QD as tolerated given anemia -Hold asa given anemia -Follow HR/BP/volume status closely -BB/CCB only as tolerated given episode of hypotension -Continue hydralazine as well with well controlled BP -PT/OT -Follow volume status closely Problems: Consultation Date/Type/Reason Admit Date/Time Jun 14, 2017 at 09:27 Initial Consult Date 06/15/17 Type of Consultation: cardiology Reason for Consultation AF Referring Provider: SARAH VINCENT Exam/Review of Systems Vital Signs Vitals Vital Signs Date Time Temp Pulse Resp B/P Pulse Ox O2 Delivery O2 Flow Rate FiO2 07/14/17 11:05 70 97 30 07/14/17 07:57 98.1 16 124/57 07/14/17 07:28 Nasal Cannula 3.0 Intake and Output 07/13/17 07/13/17 07/14/17 15:00 23:00 07:00 Intake Total 480 ml 200 ml Output Total 350 ml 350 ml Balance 130 ml -150 ml Exam Review of Systems: CONSTITUTIONAL: No fevers, chills. PULMONARY: No sob CARDIOVASCULAR: No chest pain/palpitations GASTROINTESTINAL: No nausea/vomiting. GENITOURINARY: No hematuria/dysuria. MUSCULOSKELETAL: No myagias/arthalgias. PSYCHIATRIC: The patient denies depression. NEUROLOGIC: somewhat lethargic Constitutional: other (sleeping but easily arousable) Head: normocephalic ENMT: mucosa pink and moist Neck: jvd (9 cm water), supple Respiratory: diminished breath sounds (at bases/B/upper airway rhocherous sounds) Cardiovascular: regular rate and rhythm Gastrointestinal: non-tender, soft Musculoskeletal: muscle tone (normal) Extremities: pitting pedal edema (trace/B) Neurological: lethargic (mildly) Results Result Diagram: 07/14/17 0602 07/14/17 0602 Results 24 hrs Laboratory Tests Test 07/13/17 11:42 07/13/17 17:10 07/13/17 19:56 07/14/17 06:02 Bedside Glucose 86 78 104 White Blood Count 6.7 # Red Blood Count 3.18 L Hemoglobin 9.4 L Hematocrit 30.2 L Mean Corpuscular Volume 95.0 Mean Corpuscular Hemoglobin 29.6 Mean Corpuscular Hemoglobin Concent 31.1 L Red Cell Distribution Width 15.5 H Platelet Count 149 Mean Platelet Volume 10.5 H Neutrophils % 62.4 Lymphocytes % 18.9 Monocytes % 10.1 Eosinophils % 8.0 H Basophils % 0.3 Nucleated Red Blood Cells % 0.0 Neutrophils # 4.2 Lymphocytes # 1.3 Monocytes # 0.7 Eosinophils # 0.5 Basophils # 0.0 Nucleated Red Blood Cells # 0.0 Sodium Level 138 Potassium Level 4.2 Chloride Level 96 L Carbon Dioxide Level 38 H Anion Gap 8 Blood Urea Nitrogen 23 H Creatinine 1.48 H Glucose Level 74 Calcium Level 8.3 L Test 07/14/17 08:00 07/14/17 08:24 07/14/17 11:27 Blood Gas Specimen Source Blood arterial Arterial Blood Date Drawn 07/14/2017 7:40:24 AM Arterial Blood pH (Temp corrected) 7.467 H Arterial Blood pCO2 (Temp correct) 49.3 H Arterial Blood pO2 (Temp corrected) 124.4 H Arterial Blood HCO3 34.8 H Arterial Blood Base Excess 9.7 H Arterial Blood Oxygen Saturation 98.3 Carlton Test ACCEPTAB Arterial Blood Gas Puncture Site Right Radial Arterial Blood Carboxyhemoglobin 0.3 Arterial Blood Methemoglobin 0.3 Blood Gas A-a O2 Differential 9.8 Oxyhemoglobin Percent 97.7 Total Hemoglobin 12.0 Blood Gas Temperature 37.0 Blood Gas Modality NASAL CANNULA FiO2 27.0 Blood Gas Notified Whom JLD Blood Gas Notified Time 07/14/2017 8:09:58 AM Bedside Glucose 82 82 Medications Medications Current Medications Ondansetron HCl (Zofran Inj) 4 mg Q6H PRN IV NAUSEA AND/OR VOMITING Last administered on 06/27/17 21:40; Admin Dose 4 MG; Start 06/13/17 at 15:30 Acetaminophen (Tylenol Tab) 650 mg Q6H PRN PO PAIN LEVEL 1-3 OR FEVER Last administered on 06/24/17 16:33; Admin Dose 650 MG; Start 06/13/17 at 15:30 Docusate Sodium (Colace) 100 mg Q12H PRN PO CONSTIPATION; Start 06/13/17 at 15 :30 Magnesium Hydroxide (Milk Of Mag) 30 ml DAILY PRN PO CONSTIPATION Last administered on 07/02/17 08:51; Admin Dose 30 ML; Start 06/13/17 at 15:30 Hydralazine HCl (Apresoline) 10 mg Q6H PRN IV ELEVATED BLOOD PRESSURE Last administered on 06/25/17 08:43; Admin Dose 10 MG; Start 06/13/17 at 15:30 Nitroglycerin (Nitroglycerin (Sl Tab) 0.4 Mg) 1 tab Q5M PRN SL ANGINA; Start 06/13/17 at 15:30 Atorvastatin Calcium (Lipitor) 10 mg HS PO Last administered on 06/16/17 21: 47; Admin Dose 10 MG; Start 06/13/17 at 21:00; Status Future Hold Levothyroxine Sodium (Synthroid) 100 mcg DAILY PO Last administered on 08:26; Admin Dose 100 MCG; Start 06/14/17 at 09:00 Montelukast Sodium (Singulair) 10 mg QHS PO Last administered on 07/13/17 19: 56; Admin Dose 10 MG; Start 06/13/17 at 21:00 Insulin Glargine (Lantus) 10 unit DAILY@20 SC ; Start 06/14/17 at 20:00; Status Future Hold Diagnostic Test (Pha) (Accu-Chek) 1 ea 02 XX Last administered on 06/24/17 02 :03; Admin Dose 1 EA; Start 06/15/17 at 02:00 Miscellaneous Information 1 ea NOTE XX ; Start 06/14/17 at 06:00 Glucose (Glutose) 15 gm Q15M PRN PO DECREASED GLUCOSE; Start 06/14/17 at 06:00 Glucose (Glutose) 22.5 gm Q15M PRN PO DECREASED GLUCOSE; Start 06/14/17 at 06: 00 Dextrose (D50w Syringe) 25 ml Q15M PRN IV DECREASED GLUCOSE Last administered on 06/17/17 04:41; Admin Dose 25 ML; Start 06/14/17 at 06:00 Dextrose (D50w Syringe) 50 ml Q15M PRN IV DECREASED GLUCOSE; Start 06/14/17 at 06:00 Glucagon (Glucagen) 1 mg Q15M PRN IM DECREASED GLUCOSE; Start 06/14/17 at 06: 00 Glucose (Glutose) 15 gm Q15M PRN BUCCAL DECREASED GLUCOSE; Start 06/14/17 at 06:00 Enoxaparin Sodium (Lovenox) 60 mg DAILY SC Last administered on 07/14/17 09: 13; Admin Dose 60 MG; Start 06/17/17 at 09:00 IV Flush (NS 10 ml) 10 ml PRN PRN IV IV PROTOCOL; Start 06/16/17 at 14:00 Haloperidol (Haldol) 1 mg Q12 PRN IV agitation Last administered on 06/16/17 21:56; Admin Dose 1 MG; Start 06/16/17 at 20:30 Metoprolol Tartrate (Lopressor) 50 mg BID PO Last administered on 06/23/17 20 :02; Admin Dose 50 MG; Start 06/19/17 at 21:00; Status Future hold Diltiazem HCl (Cardizem) 60 mg Q8 GTB Last administered on 07/14/17 06:02; Admin Dose 60 MG; Start 06/23/17 at 14:00; Status Future hold Hydralazine HCl (Apresoline) 25 mg Q8 PO Last administered on 07/14/17 06:02 ; Admin Dose 25 MG; Start 06/30/17 at 14:00 Carvedilol (Coreg) 6.25 mg BID PO Last administered on 07/14/17 08:25; Admin Dose 6.25 MG; Start 07/02/17 at 21:00 Pantoprazole (Protonix Tab) 40 mg BID@,18 PO Last administered on 07/14/17 06:02; Admin Dose 40 MG; Start 07/02/17 at 18:00 Ferrous Sulfate (Ferrous Sulfate (Ec)) 325 mg DAILY PO Last administered on 08:26; Admin Dose 325 MG; Start 07/06/17 at 12:00 Nystatin (Nystatin Powder) 1 applic BID TOP Last administered on 07/14/17 08: 26; Admin Dose 1 APPLIC; Start 07/10/17 at 21:00 Triamcinolone Acetonide (Kenalog 0.025% Lotion) 1 applic BID TOP Last administered on 07/14/17 08:27; Admin Dose 1 APPLIC; Start 07/11/17 at 00:00 Diphenhydramine HCl (Benadryl) 50 mg Q6H PRN IV rash/itching Last administered on 07/11/17 05:43; Admin Dose 50 MG; Start 07/11/17 at 00:00 Calcium Carbonate (Oyster Shell Calcium) 1.25 gm BID PO Last administered on 08:26; Admin Dose 1.25 GM; Start 07/13/17 at 09:00 WEN GOFF Jul 14, 2017 11:35
--- NOTE | 2017-07-14 14:07 | CONS ---
Date/Time of Note Date/Time of Note DATE: 07/14/17 TIME: 14:07 Consult Date/Type/Reason Admit Date/Time Jun 14, 2017 at 09:27 Type of Consultation: Pulmonary Ordering Provider: SARAH VINCENT Subjective Patient comfortable this morning. Awake alert and oriented. Objective Vital Signs Date Time Temp Pulse Resp B/P Pulse Ox O2 Delivery O2 Flow Rate FiO2 07/14/17 12:39 59 07/14/17 11:31 97.8 18 111/59 100 07/14/17 11:05 30 07/14/17 07:28 Nasal Cannula 3.0 Intake and Output 07/13/17 07/13/17 07/14/17 15:00 23:00 07:00 Intake Total 480 ml 200 ml Output Total 350 ml 350 ml Balance 130 ml -150 ml Exam GENERAL: Chronically ill-appearing lady comfortable at rest no acute distress VITAL SIGNS: per chart NECK: Supple. No JVD or lymphadenopathy. CARDIAC EXAM: S1, S2. No added sounds or murmurs. CHEST: clear bilaterally, No added sounds, rales or wheezes ABDOMEN: Soft, nontender. No guarding or rebound. EXTREMITIES: No cyanosis, clubbing or edema. NEUROLOGIC: Generalized weakness. No focal deficits. Results/Medications Result Diagram: 07/14/17 0602 07/14/17 0602 Results 24 hrs Laboratory Tests Test 07/13/17 17:10 07/13/17 19:56 07/14/17 06:02 07/14/17 08:00 Bedside Glucose 78 104 White Blood Count 6.7 # Red Blood Count 3.18 L Hemoglobin 9.4 L Hematocrit 30.2 L Mean Corpuscular Volume 95.0 Mean Corpuscular Hemoglobin 29.6 Mean Corpuscular Hemoglobin Concent 31.1 L Red Cell Distribution Width 15.5 H Platelet Count 149 Mean Platelet Volume 10.5 H Neutrophils % 62.4 Lymphocytes % 18.9 Monocytes % 10.1 Eosinophils % 8.0 H Basophils % 0.3 Nucleated Red Blood Cells % 0.0 Neutrophils # 4.2 Lymphocytes # 1.3 Monocytes # 0.7 Eosinophils # 0.5 Basophils # 0.0 Nucleated Red Blood Cells # 0.0 Sodium Level 138 Potassium Level 4.2 Chloride Level 96 L Carbon Dioxide Level 38 H Anion Gap 8 Blood Urea Nitrogen 23 H Creatinine 1.48 H Glucose Level 74 Calcium Level 8.3 L Blood Gas Specimen Source Blood arterial Arterial Blood Date Drawn 07/14/2017 7:40:24 AM Arterial Blood pH (Temp corrected) 7.467 H Arterial Blood pCO2 (Temp correct) 49.3 H Arterial Blood pO2 (Temp corrected) 124.4 H Arterial Blood HCO3 34.8 H Arterial Blood Base Excess 9.7 H Arterial Blood Oxygen Saturation 98.3 Carl[place] Test ACCEPTAB Arterial Blood Gas Puncture Site Right Radial Arterial Blood Carboxyhemoglobin 0.3 Arterial Blood Methemoglobin 0.3 Blood Gas A-a O2 Differential 9.8 Oxyhemoglobin Percent 97.7 Total Hemoglobin 12.0 Blood Gas Temperature 37.0 Blood Gas Modality NASAL CANNULA FiO2 27.0 Blood Gas Notified Whom JLD Blood Gas Notified Time 07/14/2017 8:09:58 AM Test 07/14/17 08:24 07/14/17 11:27 Bedside Glucose 82 82 Medications Current Medications Ondansetron HCl (Zofran Inj) 4 mg Q6H PRN IV NAUSEA AND/OR VOMITING Last administered on 06/27/17 21:40; Admin Dose 4 MG; Start 06/13/17 at 15:30 Acetaminophen (Tylenol Tab) 650 mg Q6H PRN PO PAIN LEVEL 1-3 OR FEVER Last administered on 06/24/17 16:33; Admin Dose 650 MG; Start 06/13/17 at 15:30 Docusate Sodium (Colace) 100 mg Q12H PRN PO CONSTIPATION; Start 06/13/17 at 15 :30 Magnesium Hydroxide (Milk Of Mag) 30 ml DAILY PRN PO CONSTIPATION Last administered on 07/02/17 08:51; Admin Dose 30 ML; Start 06/13/17 at 15:30 Hydralazine HCl (Apresoline) 10 mg Q6H PRN IV ELEVATED BLOOD PRESSURE Last administered on 06/25/17 08:43; Admin Dose 10 MG; Start 06/13/17 at 15:30 Nitroglycerin (Nitroglycerin (Sl Tab) 0.4 Mg) 1 tab Q5M PRN SL ANGINA; Start 06/13/17 at 15:30 Atorvastatin Calcium (Lipitor) 10 mg HS PO Last administered on 06/16/17 21: 47; Admin Dose 10 MG; Start 06/13/17 at 21:00; Status Future Hold Levothyroxine Sodium (Synthroid) 100 mcg DAILY PO Last administered on 08:26; Admin Dose 100 MCG; Start 06/14/17 at 09:00 Montelukast Sodium (Singulair) 10 mg QHS PO Last administered on 07/13/17 19: 56; Admin Dose 10 MG; Start 06/13/17 at 21:00 Insulin Glargine (Lantus) 10 unit DAILY@20 SC ; Start 06/14/17 at 20:00; Status Future Hold Diagnostic Test (Pha) (Accu-Chek) 1 ea 02 XX Last administered on 06/24/17 02 :03; Admin Dose 1 EA; Start 06/15/17 at 02:00 Miscellaneous Information 1 ea NOTE XX ; Start 06/14/17 at 06:00 Glucose (Glutose) 15 gm Q15M PRN PO DECREASED GLUCOSE; Start 06/14/17 at 06:00 Glucose (Glutose) 22.5 gm Q15M PRN PO DECREASED GLUCOSE; Start 06/14/17 at 06: 00 Dextrose (D50w Syringe) 25 ml Q15M PRN IV DECREASED GLUCOSE Last administered on 06/17/17 04:41; Admin Dose 25 ML; Start 06/14/17 at 06:00 Dextrose (D50w Syringe) 50 ml Q15M PRN IV DECREASED GLUCOSE; Start 06/14/17 at 06:00 Glucagon (Glucagen) 1 mg Q15M PRN IM DECREASED GLUCOSE; Start 06/14/17 at 06: 00 Glucose (Glutose) 15 gm Q15M PRN BUCCAL DECREASED GLUCOSE; Start 06/14/17 at 06:00 Enoxaparin Sodium (Lovenox) 60 mg DAILY SC Last administered on 07/14/17 09: 13; Admin Dose 60 MG; Start 06/17/17 at 09:00 IV Flush (NS 10 ml) 10 ml PRN PRN IV IV PROTOCOL; Start 06/16/17 at 14:00 Haloperidol (Haldol) 1 mg Q12 PRN IV agitation Last administered on 06/16/17 21:56; Admin Dose 1 MG; Start 06/16/17 at 20:30 Metoprolol Tartrate (Lopressor) 50 mg BID PO Last administered on 06/23/17 20 :02; Admin Dose 50 MG; Start 06/19/17 at 21:00; Status Future hold Diltiazem HCl (Cardizem) 60 mg Q8 GTB Last administered on 07/14/17 06:02; Admin Dose 60 MG; Start 06/23/17 at 14:00; Status Future hold Hydralazine HCl (Apresoline) 25 mg Q8 PO Last administered on 07/14/17 06:02 ; Admin Dose 25 MG; Start 06/30/17 at 14:00 Carvedilol (Coreg) 6.25 mg BID PO Last administered on 07/14/17 08:25; Admin Dose 6.25 MG; Start 07/02/17 at 21:00 Pantoprazole (Protonix Tab) 40 mg BID@18 PO Last administered on 07/14/17 06:02; Admin Dose 40 MG; Start 07/02/17 at 18:00 Ferrous Sulfate (Ferrous Sulfate (Ec)) 325 mg DAILY PO Last administered on 08:26; Admin Dose 325 MG; Start 07/06/17 at 12:00 Nystatin (Nystatin Powder) 1 applic BID TOP Last administered on 07/14/17 08: 26; Admin Dose 1 APPLIC; Start 07/10/17 at 21:00 Triamcinolone Acetonide (Kenalog 0.025% Lotion) 1 applic BID TOP Last administered on 07/14/17 08:27; Admin Dose 1 APPLIC; Start 07/11/17 at 00:00 Diphenhydramine HCl (Benadryl) 50 mg Q6H PRN IV rash/itching Last administered on 07/11/17 05:43; Admin Dose 50 MG; Start 07/11/17 at 00:00 Calcium Carbonate (Oyster Shell Calcium) 1.25 gm BID PO Last administered on 08:26; Admin Dose 1.25 GM; Start 07/13/17 at 09:00 Assessment/Plan Chief Complaint/Hosp Course IMP: 1. s/p Acute hypercapnic respiratory failure 2. HTN 3. Atrial fibrillation 4. Diabetes mellitus. 5. Status post shock. 6. Renal insufficiency. RECS: 1. Continue BiPAP at night and as needed. 2. Rate control per cardiology. 3. Avoid sedation 4. Deep venous thrombosis and gastrointestinal prophylaxis. 5. Aspiration precautions. 6. PT/OT/OOB Consider DC Marie Problems: YAZMIN VARGAS MD, [facility] Jul 14, 2017 14:07
--- NOTE | 2017-07-14 17:38 | CONS ---
DATE OF ADMISSION: 06/14/2017 DATE OF CONSULTATION: TYPE OF CONSULTATION: Pulmonary. REASON FOR CONSULTATION: Respiratory failure, shortness of breath. Thank you, Dr. Prater, for this consultation. HISTORY OF PRESENT ILLNESS: This is an 82-year-old lady admitted with a several day history of incr easing shortness of breath, orthopnea, PND, found on admission to have worsening hypoxemia. Current ly being treated for COPD exacerbation. CT of the chest demonstrates severe emphysematous lung dise ase. In addition, the patient noted to have spiculated lesion right lower lobe concerning for possi ble underlying malignancy. PAST MEDICAL HISTORY: 1. O2-dependent COPD. 2. Hypertension. MEDICATIONS: Per chart. ALLERGIES: NONE. SOCIAL HISTORY: Ex-smoker, no alcohol, no history of drug use. FAMILY HISTORY: Noncontributory. REVIEW OF SYSTEMS: A 12-point review of systems was negative other than that mentioned above. PHYSICAL EXAMINATION: GENERAL: Thin, elderly lady. Awake, alert, oriented, comfortable at rest, talking in full and comp lete sentences. VITAL SIGNS: Currently afebrile. Pulse is 120, blood pressure 138/90, O2 sat 96% on 2 liters nasal cannula. NECK: Supple. No JVD or lymphadenopathy. CARDIAC: S1, S2, no added sounds, no murmurs. CHEST: Diminished air entry bilaterally. ABDOMEN: Soft, nontender. No guarding or rebound. EXTREMITIES: No cyanosis, clubbing, edema. NEUROLOGICAL: Grossly intact. No focal deficits IMAGING: CT chest as above. LABORATORIES: White count 11.8, hemoglobin 12.1, platelets of 368. BUN 17, creatinine 0.64. IMPRESSION: 1. Acute chronic obstructive pulmonary disease exacerbation. 2. Underlying severe chronic obstructive pulmonary disease. 3. Possible lung malignancy on CT. 4. Acute on chronic hypoxemic respiratory failure. PLAN: 1. Continue steroid taper. 2. Antibiotics. 3. Continue outpatient medications with combination bronchodilators. 4. Outpatient PET scan. 5. Follow up with me in the office. Dictated By: YAZMIN VARGAS MD SV/NTS Conf#: [id number] DID#: [id number] CC: SARAH VINCENT MD;*EndCC*
[2017-07-14] MEDS: MONTELUKAST 10 MG TAB PO SCH (21:42)
[2017-07-15] VITALS (18 sets, daily range): BP systolic 121–167; BP diastolic 69–89; PULSE 58–81; RESP 17–24
[2017-07-15] MEDS: ACCU-CHEK XX SCH (02:00)
[2017-07-15] MEDS: PANTOPRAZOLE (EC) 40 MG TAB PO SCH ×2 (05:45→18:04)
[2017-07-15] MEDS: DILTIAZEM 60 MG TAB GTB SCH ×3 (05:45→22:06)
[2017-07-15 07:08] LABS: BASOPHILS % 0.3 % (0.0-2.0); EOSINOPHILS # 0.6 10^3/ul (0.0-0.5); HEMATOCRIT 33.1 % (37.0-47.0); HEMOGLOBIN 10.3 g/dl (12.0-16.0); LYMPHOCYTES # 1.3 10^3/ul (0.8-2.9); LYMPHOCYTES % 18.5 % (15.0-51.0); MEAN CORPUSCULAR HEMOGLOBIN 29.5 pg (29.0-33.0); MEAN CORPUSCULAR HGB CONC 31.1 g/dl (32.0-37.0); MEAN CORPUSCULAR VOLUME 94.8 fl (82.0-101.0); MEAN PLATELET VOLUME 10.6 fl (7.4-10.4); MONOCYTE # 0.7 10^3/ul (0.3-0.9); MONOCYTES % 10.6 % (0.0-11.0); NEUTROPHIL # 4.3 10^3/ul (1.6-7.5); NEUTROPHILS % 62.3 % (39.0-77.0); PLATELET COUNT 170 10^3/UL (140-415); RED BLOOD COUNT 3.49 10^6/ul (4.20-5.40); RED CELL DISTRIBUTION WIDTH 15.3 % (11.5-14.5); WHITE BLOOD COUNT 6.9 10^3/ul (4.8-10.8)
[2017-07-15] MEDS: INSULIN ASPART [NOVOLOG] 3 ML PEN SC SCH ×4 (07:25→22:17)
[2017-07-15 07:43] LABS: CALCIUM 8.6 mg/dl (8.4-10.2); CREATININE 1.38 mg/dl (0.44-1.00); MAGNESIUM 2.1 mg/dl (1.7-2.5); POTASSIUM 4.2 mmol/L (3.5-5.1)
--- NOTE | 2017-07-15 09:04 | CONS ---
Date/Time of Note Date/Time of Note DATE: 07/15/17 TIME: 09:02 Assessment/Plan Assessment/Plan Additional Assessment/Plan 1.Hypotension-improved again with stable BP/NL EF by echo this admit - now BP high - will consider more therapy as needed. 2. AF with RVR- prior pauses with BB, all estrella agents were held- now again tolerating coreg/dilt with good heart rates and no sig eren or pause - RATE CONTROLLED NOW. 3. Renal failure-ongoing but slowly improving - stable. 4. Hypercarbic resp failure s/p extubation-improved with BIPAP when sleeping as necessary - off now, much better 5. Hypothyroid 6. PLeural effusion-s/p thoracentesis 7. Anemia-a/p transfusion with ? transfusion reaction Consultation Date/Type/Reason Admit Date/Time Jun 14, 2017 at 09:27 Type of Consultation: Pulmonary Referring Provider: SARAH VINCENT 24 HR Interval Summary Free Text/Dictation Pt much better overall- BP on high side - will allow for now and follow clinically ROS: No fever, no chills, no nausea, no vomiting, no diarrhea/constipation No recent weight changes No chest pain, no PND, no orthopnea - better No dizziness, blurred vision No thirst, no heat or cold intolerance Exam/Review of Systems Vital Signs Vitals Vital Signs Date Time Temp Pulse Resp B/P Pulse Ox O2 Delivery O2 Flow Rate FiO2 07/15/17 08:24 81 07/15/17 07:54 98.0 20 164/80 98 07/15/17 07:30 2.0 07/15/17 05:07 30 07/15/17 04:00 Nasal Cannula Intake and Output 07/14/17 07/14/17 07/15/17 14:59 22:59 06:59 Intake Total 480 ml Output Total 450 ml Balance 30 ml Results Result Diagram: 07/15/17 0628 07/15/17 0628 Results 24 hrs Laboratory Tests Test 07/14/17 11:27 07/14/17 17:05 07/14/17 21:46 07/15/17 06:28 Bedside Glucose 82 94 100 White Blood Count 6.9 Red Blood Count 3.49 L Hemoglobin 10.3 L Hematocrit 33.1 L Mean Corpuscular Volume 94.8 Mean Corpuscular Hemoglobin 29.5 Mean Corpuscular Hemoglobin Concent 31.1 L Red Cell Distribution Width 15.3 H Platelet Count 170 Mean Platelet Volume 10.6 H Neutrophils % 62.3 Lymphocytes % 18.5 Monocytes % 10.6 Eosinophils % 8.0 H Basophils % 0.3 Nucleated Red Blood Cells % 0.0 Neutrophils # 4.3 Lymphocytes # 1.3 Monocytes # 0.7 Eosinophils # 0.6 H Basophils # 0.0 Nucleated Red Blood Cells # 0.0 Sodium Level 139 Potassium Level 4.2 Chloride Level 97 Carbon Dioxide Level 36 H Anion Gap 10 Blood Urea Nitrogen 19 Creatinine 1.38 H Glucose Level 83 Calcium Level 8.6 Magnesium Level 2.1 Test 07/15/17 08:27 Bedside Glucose 82 Medications Medications Current Medications Ondansetron HCl (Zofran Inj) 4 mg Q6H PRN IV NAUSEA AND/OR VOMITING Last administered on 06/27/17 21:40; Admin Dose 4 MG; Start 06/13/17 at 15:30 Acetaminophen (Tylenol Tab) 650 mg Q6H PRN PO PAIN LEVEL 1-3 OR FEVER Last administered on 06/24/17 16:33; Admin Dose 650 MG; Start 06/13/17 at 15:30 Docusate Sodium (Colace) 100 mg Q12H PRN PO CONSTIPATION; Start 06/13/17 at 15 :30 Magnesium Hydroxide (Milk Of Mag) 30 ml DAILY PRN PO CONSTIPATION Last administered on 07/02/17 08:51; Admin Dose 30 ML; Start 06/13/17 at 15:30 Hydralazine HCl (Apresoline) 10 mg Q6H PRN IV ELEVATED BLOOD PRESSURE Last administered on 06/25/17 08:43; Admin Dose 10 MG; Start 06/13/17 at 15:30 Nitroglycerin (Nitroglycerin (Sl Tab) 0.4 Mg) 1 tab Q5M PRN SL ANGINA; Start 06/13/17 at 15:30 Atorvastatin Calcium (Lipitor) 10 mg HS PO Last administered on 06/16/17 21: 47; Admin Dose 10 MG; Start 06/13/17 at 21:00; Status Future Hold Levothyroxine Sodium (Synthroid) 100 mcg DAILY PO Last administered on 08:26; Admin Dose 100 MCG; Start 06/14/17 at 09:00 Montelukast Sodium (Singulair) 10 mg QHS PO Last administered on 07/14/17 21: 42; Admin Dose 10 MG; Start 06/13/17 at 21:00 Insulin Glargine (Lantus) 10 unit DAILY@20 SC ; Start 06/14/17 at 20:00; Status Future Hold Diagnostic Test (Pha) (Accu-Chek) 1 ea 02 XX Last administered on 06/24/17 02 :03; Admin Dose 1 EA; Start 06/15/17 at 02:00 Miscellaneous Information 1 ea NOTE XX ; Start 06/14/17 at 06:00 Glucose (Glutose) 15 gm Q15M PRN PO DECREASED GLUCOSE; Start 06/14/17 at 06:00 Glucose (Glutose) 22.5 gm Q15M PRN PO DECREASED GLUCOSE; Start 06/14/17 at 06: 00 Dextrose (D50w Syringe) 25 ml Q15M PRN IV DECREASED GLUCOSE Last administered on 06/17/17 04:41; Admin Dose 25 ML; Start 06/14/17 at 06:00 Dextrose (D50w Syringe) 50 ml Q15M PRN IV DECREASED GLUCOSE; Start 06/14/17 at 06:00 Glucagon (Glucagen) 1 mg Q15M PRN IM DECREASED GLUCOSE; Start 06/14/17 at 06: 00 Glucose (Glutose) 15 gm Q15M PRN BUCCAL DECREASED GLUCOSE; Start 06/14/17 at 06:00 Enoxaparin Sodium (Lovenox) 60 mg DAILY SC Last administered on 07/14/17 09: 13; Admin Dose 60 MG; Start 06/17/17 at 09:00 IV Flush (NS 10 ml) 10 ml PRN PRN IV IV PROTOCOL; Start 06/16/17 at 14:00 Haloperidol (Haldol) 1 mg Q12 PRN IV agitation Last administered on 06/16/17 21:56; Admin Dose 1 MG; Start 06/16/17 at 20:30 Metoprolol Tartrate (Lopressor) 50 mg BID PO Last administered on 06/23/17 20 :02; Admin Dose 50 MG; Start 06/19/17 at 21:00; Status Future hold Diltiazem HCl (Cardizem) 60 mg Q8 GTB Last administered on 07/15/17 05:45; Admin Dose 60 MG; Start 06/23/17 at 14:00; Status Future hold Hydralazine HCl (Apresoline) 25 mg Q8 PO Last administered on 07/15/17 05:46 ; Admin Dose 25 MG; Start 06/30/17 at 14:00 Carvedilol (Coreg) 6.25 mg BID PO Last administered on 07/14/17 21:42; Admin Dose 6.25 MG; Start 07/02/17 at 21:00 Pantoprazole (Protonix Tab) 40 mg BID@ PO Last administered on 07/15/17 05:45; Admin Dose 40 MG; Start 07/02/17 at 18:00 Ferrous Sulfate (Ferrous Sulfate (Ec)) 325 mg DAILY PO Last administered on 08:26; Admin Dose 325 MG; Start 07/06/17 at 12:00 Nystatin (Nystatin Powder) 1 applic BID TOP Last administered on 07/14/17 21: 47; Admin Dose 1 APPLIC; Start 07/10/17 at 21:00 Triamcinolone Acetonide (Kenalog 0.025% Lotion) 1 applic BID TOP Last administered on 07/14/17 21:47; Admin Dose 1 APPLIC; Start 07/11/17 at 00:00 Diphenhydramine HCl (Benadryl) 50 mg Q6H PRN IV rash/itching Last administered on 07/11/17 05:43; Admin Dose 50 MG; Start 07/11/17 at 00:00 Calcium Carbonate (Oyster Shell Calcium) 1.25 gm BID PO Last administered on 21:42; Admin Dose 1.25 GM; Start 07/13/17 at 09:00 Sertraline HCl (Zoloft) 25 mg DAILY PO ; Start 07/15/17 at 09:00 LILIAN ABEBE MD Jul 15, 2017 09:04
[2017-07-15] MEDS: CALCIUM CARBONATE 1.25 GM TAB PO SCH ×2 (09:12→22:08)
[2017-07-15] MEDS: FERROUS SULFATE (EC) 325 MG TAB PO SCH (09:12)
[2017-07-15] MEDS: LEVOTHYROXINE 100 MCG TAB PO SCH (09:13)
[2017-07-15] MEDS: TRIAMCINOLONE ACET 0.025% 60 ML LOT TOP SCH ×2 (09:15→22:13)
[2017-07-15] MEDS: NYSTATIN 30 GM POWDER BTL TOP SCH ×2 (09:15→22:13)
[2017-07-15] MEDS: BALSAM PERU/CASTOR OIL 60 GM TUBE TOP SCH ×2 (09:15→22:14)
[2017-07-15] MEDS: ENOXAPARIN 60 MG/0.6 ML SYG SC SCH (09:18)
[2017-07-15] MEDS: SERTRALINE 50 MG TAB PO SCH (14:20)
[2017-07-15] MEDS: MONTELUKAST 10 MG TAB PO SCH (22:08)
[2017-07-16] VITALS (20 sets, daily range): BP systolic 122–192; BP diastolic 65–81; PULSE 60–85; RESP 16–24
[2017-07-16] MEDS: ACCU-CHEK XX SCH (01:33)
[2017-07-16] MEDS: PANTOPRAZOLE (EC) 40 MG TAB PO SCH ×2 (05:55→17:34)
[2017-07-16] MEDS: DILTIAZEM 60 MG TAB GTB SCH ×3 (05:56→22:26)
--- NOTE | 2017-07-16 06:34 | PN ---
DATE: 07/15/2017 SUBJECTIVE: Patient is feeling well, no complaints. OBJECTIVE: VITAL SIGNS: Temperature 98.0, pulse 81, respirations 20, blood pressure 164/80 , oxygen saturation 98% on 2 liter nasal cannula oxygen. GENERAL: Well-developed, well-nourished female, in no acute distress, lying in bed. CHEST: Clear to auscultation bilaterally, except for decreased breath sounds, bilateral bases. HEART: Irregularly irregular. ABDOMEN: Soft, nontender, nondistended. EXTREMITIES: No cyanosis, clubbing. There is trace to 1+ bilateral lower extremity edema. NEUROLOGIC: Nonfocal. LABORATORY DATA: Sodium 139, potassium 4.2, chloride 97, bicarbonate 36, BUN of 19, creatinine 1.38, blood sugar 83, magnesium 2.1. Hemoglobin of 10.3, hematocrit 33.1, white blood cell count 6.9, platelets of 170. ASSESSMENT AND PLAN 1. Acute respiratory failure with hypercapnia due to Hypoventilation syndrome: The patient remains improved but continued to rely on overnight BiPAP and intermittent BiPAP as needed. We will continue with this and will arrange for BiPAP and oxygen at home. 2. Atrial fibrillation, remains stable and controlled with current medications. We will continue with current meds and diet. 3. Acute combined congestive heart failure/coronary disease/hypertension, resolved. We will continue with current medications and diet. 4. Diabetes, stable. Continue with meds and diet. 5. Anemia, stable, status post transfusion. No need for further intervention. 6. Acute on chronic renal failure, improved. We will continue to monitor. 7. Hypothyroidism, stable. Continue with medications. 8. Depression, improved. This patient is going home. Will restart the Sertraline that had been given previously. DISCHARGE PLANS: The and patient and the patient's family want to take patient home. We will arrange for home health as well as equivalent. The patient will need a hospital bed, BiPAP machine, oxygen, bedside commode, and home health. Dictated By: MORGAN SNOW MD SR/NTS Conf#: [id number] DID#: [id number] CC: SARAH VINCENT MD;*EndCC* MTDD
[2017-07-16] MEDS: INSULIN ASPART [NOVOLOG] 3 ML PEN SC SCH ×4 (07:25→23:00)
[2017-07-16 08:52] LABS: BASOPHILS % 0.3 % (0.0-2.0); EOSINOPHILS # 0.6 10^3/ul (0.0-0.5); EOSINOPHILS % 9.4 % (0.0-7.0); HEMATOCRIT 30.8 % (37.0-47.0); HEMOGLOBIN 9.6 g/dl (12.0-16.0); LYMPHOCYTES # 1.2 10^3/ul (0.8-2.9); LYMPHOCYTES % 18.9 % (15.0-51.0); MEAN CORPUSCULAR HEMOGLOBIN 29.4 pg (29.0-33.0); MEAN CORPUSCULAR HGB CONC 31.2 g/dl (32.0-37.0); MEAN CORPUSCULAR VOLUME 94.5 fl (82.0-101.0); MEAN PLATELET VOLUME 10.6 fl (7.4-10.4); MONOCYTE # 0.8 10^3/ul (0.3-0.9); NEUTROPHIL # 3.8 10^3/ul (1.6-7.5); NEUTROPHILS % 59.1 % (39.0-77.0); PLATELET COUNT 174 10^3/UL (140-415); RED BLOOD COUNT 3.26 10^6/ul (4.20-5.40); WHITE BLOOD COUNT 6.4 10^3/ul (4.8-10.8)
[2017-07-16 08:55] LABS: CALCIUM 8.9 mg/dl (8.4-10.2); CREATININE 1.37 mg/dl (0.44-1.00); POTASSIUM 4.2 mmol/L (3.5-5.1)
[2017-07-16] MEDS: LEVOTHYROXINE 100 MCG TAB PO SCH (09:01)
[2017-07-16] MEDS: FERROUS SULFATE (EC) 325 MG TAB PO SCH (09:01)
[2017-07-16] MEDS: SERTRALINE 50 MG TAB PO SCH (09:01)
[2017-07-16] MEDS: NYSTATIN 30 GM POWDER BTL TOP SCH ×2 (09:02→22:31)
[2017-07-16] MEDS: CALCIUM CARBONATE 1.25 GM TAB PO SCH ×2 (09:02→22:26)
[2017-07-16] MEDS: TRIAMCINOLONE ACET 0.025% 60 ML LOT TOP SCH ×2 (09:02→22:31)
[2017-07-16] MEDS: BALSAM PERU/CASTOR OIL 60 GM TUBE TOP SCH ×2 (09:03→22:32)
[2017-07-16] MEDS: ENOXAPARIN 60 MG/0.6 ML SYG SC SCH (09:13)
--- NOTE | 2017-07-16 11:05 | PN ---
DATE: 07/16/2017 SUBJECTIVE: The patient is feeling better, feels stronger. OBJECTIVE: VITAL SIGNS: Temperature 98.2, pulse 68, respirations 19, blood pressure 121/70 , oxygen saturation 91% on FIO2 30% BiPAP. GENERAL: Well-developed, well-nourished female in no acute distress, lying in bed. CHEST: Clear to auscultation bilaterally except for decreased breath sounds bilateral bases. HEART: Irregularly irregular. ABDOMEN: Soft, nontender. NEUROLOGIC: Nonfocal. EXTREMITIES: No cyanosis, clubbing. There is 1+ bilateral lower extremity edema. LABORATORY DATA: Pending at the time of this dictation. ASSESSMENT AND PLAN 1. Acute respiratory failure with hypercapnia/hypoxia due to Hypoventilation Syndrome: Patient continues to remain stable on BiPAP and oxygen. We will continue this as an outpatient and arrange for home oxygen as well as BiPAP to be used overnight as well as is needed. 2. Anemia secondary to acute blood loss, improved after transfusion, no further transfusions needed. 3. Acute combined congestive heart failure/coronary artery disease/ hypertension. Remains stable and the patient no longer in heart failure. We will continue to adjust medications as needed, but the patient remains stable on current meds. 4. Atrial fibrillation, remains stable. Continue with medications and adjust as needed. 5. Diabetes, stable. Will continue with diet and p.r.n. medications. 6. Hypothyroidism, stable. Continue with medications. 7. Acute on chronic renal insufficiency, improved, we will continue to monitor. 8. Tinea corporis. Will continue with the Nystatin powder b.i.d. 9. Gastroesophageal reflux disease, possible gastritis. Continue with pantoprazole and diet. 10. Discharge planning. Continue to arrange for discharge to home with DME, including hospital bed, bedside commode, oxygen, BiPAP machine. We will arrange for home health as well. The patient will be discharged when these arrangements have been established. Dictated By: MORGAN SNOW MD SR/NTS Conf#: [id number] DID#: [id number] CC: SARAH VINCENT MD;*EndCC* MTDD
--- NOTE | 2017-07-16 11:40 | CONS ---
Date/Time of Note Date/Time of Note DATE: 07/16/17 TIME: 11:39 Assessment/Plan Assessment/Plan Additional Assessment/Plan 1.Hypotension-improved again with stable BP/NL EF by echo this admit - now BP high - will consider more therapy as needed. BETTER. 2. AF with RVR- prior pauses with BB, all estrella agents were held- now again tolerating coreg/dilt with good heart rates and no sig eren or pause - RATE CONTROLLED NOW. 3. Renal failure-ongoing but slowly improving - stable. 4. Hypercarbic resp failure s/p extubation-improved with BIPAP when sleeping as necessary - PULMONARY TEAM FOLLOWS. 5. Hypothyroid - Rx as needed. 6. PLeural effusion-s/p thoracentesis 7. Anemia-a/p transfusion with ? transfusion reaction Consultation Date/Type/Reason Admit Date/Time Jun 14, 2017 at 09:27 Type of Consultation: Pulmonary Referring Provider: SARAH VINCENT 24 HR Interval Summary Free Text/Dictation NO acute events - HR much better - much improved overall. ROS: No fever, no chills, no nausea, no vomiting, no diarrhea/constipation No recent weight changes No chest pain, no PND, no orthopnea IMPROVED SOB No dizziness, blurred vision No thirst, no heat or cold intolerance Exam/Review of Systems Vital Signs Vitals Vital Signs Date Time Temp Pulse Resp B/P Pulse Ox O2 Delivery O2 Flow Rate FiO2 07/16/17 11:10 98.2 75 20 140/65 100 07/16/17 08:00 Nasal Cannula 3.0 07/16/17 04:37 30 Intake and Output 07/15/17 07/15/17 07/16/17 14:59 22:59 06:59 Intake Total 400 ml 390 ml Output Total 400 ml 350 ml Balance 0 ml 40 ml Exam General: WN/WD/NAD, AOx 1-2 HEENT: Unicetric/atraumatic/EOMI (follows commands) NECK: JVD elevated, no thyromegaly Lymph: no lymphadenopathy HEART: regular with no S3, II/ systolic murmur at apex LUNGS: Coarse sounds ABD: soft, NT, ND, +BS : Intact Neuro: non focal SKIN: chronic changes EXT: trace edema Results Result Diagram: 07/16/17 0747 07/16/17 0747 Results 24 hrs Laboratory Tests Test 07/15/17 18:03 07/15/17 22:16 07/16/17 07:47 07/16/17 08:12 Bedside Glucose 112 93 78 White Blood Count 6.4 Red Blood Count 3.26 L Hemoglobin 9.6 L Hematocrit 30.8 L Mean Corpuscular Volume 94.5 Mean Corpuscular Hemoglobin 29.4 Mean Corpuscular Hemoglobin Concent 31.2 L Red Cell Distribution Width 15.0 H Platelet Count 174 Mean Platelet Volume 10.6 H Neutrophils % 59.1 Lymphocytes % 18.9 Monocytes % 12.0 H Eosinophils % 9.4 H Basophils % 0.3 Nucleated Red Blood Cells % 0.0 Neutrophils # 3.8 Lymphocytes # 1.2 Monocytes # 0.8 Eosinophils # 0.6 H Basophils # 0.0 Nucleated Red Blood Cells # 0.0 Sodium Level 140 Potassium Level 4.2 Chloride Level 97 Carbon Dioxide Level 37 H Anion Gap 10 Blood Urea Nitrogen 18 Creatinine 1.37 H Glucose Level 77 Calcium Level 8.9 Magnesium Level 2.0 Medications Medications Current Medications Ondansetron HCl (Zofran Inj) 4 mg Q6H PRN IV NAUSEA AND/OR VOMITING Last administered on 06/27/17 21:40; Admin Dose 4 MG; Start 06/13/17 at 15:30 Acetaminophen (Tylenol Tab) 650 mg Q6H PRN PO PAIN LEVEL 1-3 OR FEVER Last administered on 06/24/17 16:33; Admin Dose 650 MG; Start 06/13/17 at 15:30 Docusate Sodium (Colace) 100 mg Q12H PRN PO CONSTIPATION; Start 06/13/17 at 15 :30 Magnesium Hydroxide (Milk Of Mag) 30 ml DAILY PRN PO CONSTIPATION Last administered on 07/02/17 08:51; Admin Dose 30 ML; Start 06/13/17 at 15:30 Hydralazine HCl (Apresoline) 10 mg Q6H PRN IV ELEVATED BLOOD PRESSURE Last administered on 06/25/17 08:43; Admin Dose 10 MG; Start 06/13/17 at 15:30 Nitroglycerin (Nitroglycerin (Sl Tab) 0.4 Mg) 1 tab Q5M PRN SL ANGINA; Start 06/13/17 at 15:30 Atorvastatin Calcium (Lipitor) 10 mg HS PO Last administered on 06/16/17 21: 47; Admin Dose 10 MG; Start 06/13/17 at 21:00; Status Future Hold Levothyroxine Sodium (Synthroid) 100 mcg DAILY PO Last administered on 09:01; Admin Dose 100 MCG; Start 06/14/17 at 09:00 Montelukast Sodium (Singulair) 10 mg QHS PO Last administered on 07/15/17 22: 08; Admin Dose 10 MG; Start 06/13/17 at 21:00 Insulin Glargine (Lantus) 10 unit DAILY@20 SC ; Start 06/14/17 at 20:00; Status Future Hold Diagnostic Test (Pha) (Accu-Chek) 1 ea 02 XX Last administered on 06/24/17 02 :03; Admin Dose 1 EA; Start 06/15/17 at 02:00 Miscellaneous Information 1 ea NOTE XX ; Start 06/14/17 at 06:00 Glucose (Glutose) 15 gm Q15M PRN PO DECREASED GLUCOSE; Start 06/14/17 at 06:00 Glucose (Glutose) 22.5 gm Q15M PRN PO DECREASED GLUCOSE; Start 06/14/17 at 06: 00 Dextrose (D50w Syringe) 25 ml Q15M PRN IV DECREASED GLUCOSE Last administered on 06/17/17 04:41; Admin Dose 25 ML; Start 06/14/17 at 06:00 Dextrose (D50w Syringe) 50 ml Q15M PRN IV DECREASED GLUCOSE; Start 06/14/17 at 06:00 Glucagon (Glucagen) 1 mg Q15M PRN IM DECREASED GLUCOSE; Start 06/14/17 at 06: 00 Glucose (Glutose) 15 gm Q15M PRN BUCCAL DECREASED GLUCOSE; Start 06/14/17 at 06:00 Enoxaparin Sodium (Lovenox) 60 mg DAILY SC Last administered on 07/16/17 09: 13; Admin Dose 60 MG; Start 06/17/17 at 09:00 IV Flush (NS 10 ml) 10 ml PRN PRN IV IV PROTOCOL; Start 06/16/17 at 14:00 Haloperidol (Haldol) 1 mg Q12 PRN IV agitation Last administered on 06/16/17 21:56; Admin Dose 1 MG; Start 06/16/17 at 20:30 Metoprolol Tartrate (Lopressor) 50 mg BID PO Last administered on 06/23/17 20 :02; Admin Dose 50 MG; Start 06/19/17 at 21:00; Status Future hold Diltiazem HCl (Cardizem) 60 mg Q8 GTB Last administered on 07/16/17 05:56; Admin Dose 60 MG; Start 06/23/17 at 14:00; Status Future hold Hydralazine HCl (Apresoline) 25 mg Q8 PO Last administered on 07/15/17 14:20 ; Admin Dose 25 MG; Start 06/30/17 at 14:00 Carvedilol (Coreg) 6.25 mg BID PO Last administered on 07/16/17 09:01; Admin Dose 6.25 MG; Start 07/02/17 at 21:00 Pantoprazole (Protonix Tab) 40 mg BID@,18 PO Last administered on 07/16/17 05:55; Admin Dose 40 MG; Start 07/02/17 at 18:00 Ferrous Sulfate (Ferrous Sulfate (Ec)) 325 mg DAILY PO Last administered on 09:01; Admin Dose 325 MG; Start 07/06/17 at 12:00 Nystatin (Nystatin Powder) 1 applic BID TOP Last administered on 07/16/17 09: 02; Admin Dose 1 APPLIC; Start 07/10/17 at 21:00 Triamcinolone Acetonide (Kenalog 0.025% Lotion) 1 applic BID TOP Last administered on 07/16/17 09:02; Admin Dose 1 APPLIC; Start 07/11/17 at 00:00 Diphenhydramine HCl (Benadryl) 50 mg Q6H PRN IV rash/itching Last administered on 07/11/17 05:43; Admin Dose 50 MG; Start 07/11/17 at 00:00 Calcium Carbonate (Oyster Shell Calcium) 1.25 gm BID PO Last administered on 09:02; Admin Dose 1.25 GM; Start 07/13/17 at 09:00 Sertraline HCl (Zoloft) 25 mg DAILY PO Last administered on 07/16/17 09:01; Admin Dose 25 MG; Start 07/15/17 at 09:00 LILIAN ABEBE MD Jul 16, 2017 11:40
--- NOTE | 2017-07-16 12:44 | CONS ---
Date/Time of Note Date/Time of Note DATE: 07/16/17 TIME: 12:40 Consult Date/Type/Reason Admit Date/Time Jun 14, 2017 at 09:27 Type of Consultation: Pulmonary Ordering Provider: SARAH VINCENT Subjective Sleeping on bipap. Objective Vital Signs Date Time Temp Pulse Resp B/P Pulse Ox O2 Delivery O2 Flow Rate FiO2 07/16/17 12:34 60 07/16/17 11:10 98.2 20 140/65 100 07/16/17 08:00 Nasal Cannula 3.0 07/16/17 04:37 30 Intake and Output 07/15/17 07/15/17 07/16/17 14:59 22:59 06:59 Intake Total 400 ml 390 ml Output Total 400 ml 350 ml Balance 0 ml 40 ml Exam PHYSICAL EXAMINATION GENERAL: Elderly lady comfortable at rest. No distress. On bipap. VITAL SIGNS: see below. HEENT: Pupils equal, round, and reactive to light. CARDIAC: S1, S2, 1/6 systolic ejection murmur CHEST: Diminished air entry bilaterally. ABDOMEN: Mildly distended. Bowel sounds present no guarding or rebound EXTREMITIES: No cyanosis, clubbing edema +1 NEUROLOGIC: Generalized weakness Results/Medications Result Diagram: 07/16/17 0747 07/16/17 0747 Results 24 hrs Laboratory Tests Test 07/15/17 18:03 07/15/17 22:16 07/16/17 07:47 07/16/17 08:12 Bedside Glucose 112 93 78 White Blood Count 6.4 Red Blood Count 3.26 L Hemoglobin 9.6 L Hematocrit 30.8 L Mean Corpuscular Volume 94.5 Mean Corpuscular Hemoglobin 29.4 Mean Corpuscular Hemoglobin Concent 31.2 L Red Cell Distribution Width 15.0 H Platelet Count 174 Mean Platelet Volume 10.6 H Neutrophils % 59.1 Lymphocytes % 18.9 Monocytes % 12.0 H Eosinophils % 9.4 H Basophils % 0.3 Nucleated Red Blood Cells % 0.0 Neutrophils # 3.8 Lymphocytes # 1.2 Monocytes # 0.8 Eosinophils # 0.6 H Basophils # 0.0 Nucleated Red Blood Cells # 0.0 Sodium Level 140 Potassium Level 4.2 Chloride Level 97 Carbon Dioxide Level 37 H Anion Gap 10 Blood Urea Nitrogen 18 Creatinine 1.37 H Glucose Level 77 Calcium Level 8.9 Magnesium Level 2.0 Test 07/16/17 12:15 Bedside Glucose 88 Medications Current Medications Ondansetron HCl (Zofran Inj) 4 mg Q6H PRN IV NAUSEA AND/OR VOMITING Last administered on 06/27/17 21:40; Admin Dose 4 MG; Start 06/13/17 at 15:30 Acetaminophen (Tylenol Tab) 650 mg Q6H PRN PO PAIN LEVEL 1-3 OR FEVER Last administered on 06/24/17 16:33; Admin Dose 650 MG; Start 06/13/17 at 15:30 Docusate Sodium (Colace) 100 mg Q12H PRN PO CONSTIPATION; Start 06/13/17 at 15 :30 Magnesium Hydroxide (Milk Of Mag) 30 ml DAILY PRN PO CONSTIPATION Last administered on 07/02/17 08:51; Admin Dose 30 ML; Start 06/13/17 at 15:30 Hydralazine HCl (Apresoline) 10 mg Q6H PRN IV ELEVATED BLOOD PRESSURE Last administered on 06/25/17 08:43; Admin Dose 10 MG; Start 06/13/17 at 15:30 Nitroglycerin (Nitroglycerin (Sl Tab) 0.4 Mg) 1 tab Q5M PRN SL ANGINA; Start 06/13/17 at 15:30 Atorvastatin Calcium (Lipitor) 10 mg HS PO Last administered on 06/16/17 21: 47; Admin Dose 10 MG; Start 06/13/17 at 21:00; Status Future Hold Levothyroxine Sodium (Synthroid) 100 mcg DAILY PO Last administered on 09:01; Admin Dose 100 MCG; Start 06/14/17 at 09:00 Montelukast Sodium (Singulair) 10 mg QHS PO Last administered on 07/15/17 22: 08; Admin Dose 10 MG; Start 06/13/17 at 21:00 Insulin Glargine (Lantus) 10 unit DAILY@20 SC ; Start 06/14/17 at 20:00; Status Future Hold Diagnostic Test (Pha) (Accu-Chek) 1 ea 02 XX Last administered on 06/24/17 02 :03; Admin Dose 1 EA; Start 06/15/17 at 02:00 Miscellaneous Information 1 ea NOTE XX ; Start 06/14/17 at 06:00 Glucose (Glutose) 15 gm Q15M PRN PO DECREASED GLUCOSE; Start 06/14/17 at 06:00 Glucose (Glutose) 22.5 gm Q15M PRN PO DECREASED GLUCOSE; Start 06/14/17 at 06: 00 Dextrose (D50w Syringe) 25 ml Q15M PRN IV DECREASED GLUCOSE Last administered on 06/17/17 04:41; Admin Dose 25 ML; Start 06/14/17 at 06:00 Dextrose (D50w Syringe) 50 ml Q15M PRN IV DECREASED GLUCOSE; Start 06/14/17 at 06:00 Glucagon (Glucagen) 1 mg Q15M PRN IM DECREASED GLUCOSE; Start 06/14/17 at 06: 00 Glucose (Glutose) 15 gm Q15M PRN BUCCAL DECREASED GLUCOSE; Start 06/14/17 at 06:00 Enoxaparin Sodium (Lovenox) 60 mg DAILY SC Last administered on 07/16/17 09: 13; Admin Dose 60 MG; Start 06/17/17 at 09:00 IV Flush (NS 10 ml) 10 ml PRN PRN IV IV PROTOCOL; Start 06/16/17 at 14:00 Haloperidol (Haldol) 1 mg Q12 PRN IV agitation Last administered on 06/16/17 21:56; Admin Dose 1 MG; Start 06/16/17 at 20:30 Metoprolol Tartrate (Lopressor) 50 mg BID PO Last administered on 06/23/17 20 :02; Admin Dose 50 MG; Start 06/19/17 at 21:00; Status Future hold Diltiazem HCl (Cardizem) 60 mg Q8 GTB Last administered on 07/16/17 05:56; Admin Dose 60 MG; Start 06/23/17 at 14:00; Status Future hold Hydralazine HCl (Apresoline) 25 mg Q8 PO Last administered on 07/15/17 14:20 ; Admin Dose 25 MG; Start 06/30/17 at 14:00 Carvedilol (Coreg) 6.25 mg BID PO Last administered on 07/16/17 09:01; Admin Dose 6.25 MG; Start 07/02/17 at 21:00 Pantoprazole (Protonix Tab) 40 mg BID@18 PO Last administered on 07/16/17 05:55; Admin Dose 40 MG; Start 07/02/17 at 18:00 Ferrous Sulfate (Ferrous Sulfate (Ec)) 325 mg DAILY PO Last administered on 09:01; Admin Dose 325 MG; Start 07/06/17 at 12:00 Nystatin (Nystatin Powder) 1 applic BID TOP Last administered on 07/16/17 09: 02; Admin Dose 1 APPLIC; Start 07/10/17 at 21:00 Triamcinolone Acetonide (Kenalog 0.025% Lotion) 1 applic BID TOP Last administered on 07/16/17 09:02; Admin Dose 1 APPLIC; Start 07/11/17 at 00:00 Diphenhydramine HCl (Benadryl) 50 mg Q6H PRN IV rash/itching Last administered on 07/11/17 05:43; Admin Dose 50 MG; Start 07/11/17 at 00:00 Calcium Carbonate (Oyster Shell Calcium) 1.25 gm BID PO Last administered on 09:02; Admin Dose 1.25 GM; Start 07/13/17 at 09:00 Sertraline HCl (Zoloft) 25 mg DAILY PO Last administered on 07/16/17 09:01; Admin Dose 25 MG; Start 07/15/17 at 09:00 Assessment/Plan Chief Complaint/Hosp Course IMP: 1. s/p Acute hypercapnic respiratory failure 2. HTN 3. Atrial fibrillation 4. Diabetes mellitus. 5. Status post shock. 6. Renal insufficiency. RECS: 1. Continue BiPAP at night and as needed. 2. Rate control per cardiology. 3. Avoid sedation 4. Deep venous thrombosis and gastrointestinal prophylaxis. 5. Aspiration precautions. 6. PT/OT/OOB dc planning. home bipap to be set up. Problems: YAZMIN VARGAS MD, [facility] Jul 16, 2017 12:44
[2017-07-16] MEDS: MONTELUKAST 10 MG TAB PO SCH (22:26)
[2017-07-17] VITALS (19 sets, daily range): BP systolic 132–173; BP diastolic 61–95; PULSE 57–106; RESP 17–19
[2017-07-17] MEDS: ACCU-CHEK XX SCH (02:00)
[2017-07-17] MEDS: PANTOPRAZOLE (EC) 40 MG TAB PO SCH ×2 (05:55→18:02)
[2017-07-17] MEDS: DILTIAZEM 60 MG TAB GTB SCH ×3 (05:56→21:34)
[2017-07-17] MEDS: INSULIN ASPART [NOVOLOG] 3 ML PEN SC SCH ×4 (07:25→20:41)
[2017-07-17] MEDS: CALCIUM CARBONATE 1.25 GM TAB PO SCH ×2 (09:12→20:41)
[2017-07-17] MEDS: FERROUS SULFATE (EC) 325 MG TAB PO SCH (09:13)
[2017-07-17] MEDS: SERTRALINE 50 MG TAB PO SCH (09:14)
[2017-07-17] MEDS: LEVOTHYROXINE 100 MCG TAB PO SCH (09:14)
[2017-07-17] MEDS: BALSAM PERU/CASTOR OIL 60 GM TUBE TOP SCH ×2 (09:15→20:42)
[2017-07-17] MEDS: NYSTATIN 30 GM POWDER BTL TOP SCH ×2 (09:15→20:42)
[2017-07-17] MEDS: TRIAMCINOLONE ACET 0.025% 60 ML LOT TOP SCH ×2 (09:17→20:42)
[2017-07-17] MEDS: ENOXAPARIN 60 MG/0.6 ML SYG SC SCH (09:21)
[2017-07-17 09:23] LABS: BASOPHILS % 0.5 % (0.0-2.0); EOSINOPHILS # 0.8 10^3/ul (0.0-0.5); EOSINOPHILS % 11.9 % (0.0-7.0); HEMATOCRIT 30.3 % (37.0-47.0); HEMOGLOBIN 9.6 g/dl (12.0-16.0); LYMPHOCYTES # 1.8 10^3/ul (0.8-2.9); LYMPHOCYTES % 28.3 % (15.0-51.0); MEAN CORPUSCULAR HEMOGLOBIN 29.6 pg (29.0-33.0); MEAN CORPUSCULAR HGB CONC 31.7 g/dl (32.0-37.0); MEAN CORPUSCULAR VOLUME 93.5 fl (82.0-101.0); MEAN PLATELET VOLUME 10.2 fl (7.4-10.4); MONOCYTE # 0.8 10^3/ul (0.3-0.9); NEUTROPHIL # 2.9 10^3/ul (1.6-7.5); PLATELET COUNT 166 10^3/UL (140-415); RED BLOOD COUNT 3.24 10^6/ul (4.20-5.40); WHITE BLOOD COUNT 6.3 10^3/ul (4.8-10.8)
[2017-07-17 09:43] LABS: CALCIUM 8.7 mg/dl (8.4-10.2); CREATININE 1.34 mg/dl (0.44-1.00); POTASSIUM 4.1 mmol/L (3.5-5.1)
--- NOTE | 2017-07-17 09:50 | CONS ---
Date/Time of Note Date/Time of Note DATE: 07/17/17 TIME: 09:49 Assessment/Plan Assessment/Plan Additional Assessment/Plan 1.Hypotension-improved again with stable BP/NL EF by echo this admit - now BP high - will consider more therapy as needed. BETTER. 2. AF with RVR- prior pauses with BB, all estrella agents were held- now again tolerating coreg/dilt with good heart rates and no sig eren or pause - RATE CONTROLLED NOW. No Class I indication for pacer now. 3. Renal failure-ongoing but slowly improving - stable. 4. Hypercarbic resp failure s/p extubation-improved with BIPAP when sleeping as necessary - PULMONARY TEAM FOLLOWS. 5. Hypothyroid - Rx as needed. 6. PLeural effusion-s/p thoracentesis - improved SOB. 7. Anemia-a/p transfusion with ? transfusion reaction Consultation Date/Type/Reason Admit Date/Time Jun 14, 2017 at 09:27 Type of Consultation: Pulmonary Referring Provider: SARAH VINCENT 24 HR Interval Summary Free Text/Dictation Much better overall - awaiting placement. ROS: No fever, no chills, no nausea, no vomiting, no diarrhea/constipation No recent weight changes No chest pain, no PND, no orthopnea No dizziness, blurred vision No thirst, no heat or cold intolerance Exam/Review of Systems Vital Signs Vitals Vital Signs Date Time Temp Pulse Resp B/P Pulse Ox O2 Delivery O2 Flow Rate FiO2 07/17/17 08:37 98.1 69 19 147/65 98 07/17/17 07:00 2.0 28 07/16/17 20:00 Nasal Cannula Intake and Output 07/16/17 07/16/17 07/17/17 15:00 23:00 07:00 Intake Total 400 ml 220 ml Output Total 450 ml 400 ml Balance -50 ml -180 ml Exam General: WN/WD/NAD, AOx 2-3 [place] HEENT: Unicetric/atraumatic/EOMI (does not follow commands) NECK: JVD elevated, no thyromegaly Lymph: no lymphadenopathy HEART: regular with no S3, II/ systolic murmur at apex LUNGS: Coarse sounds ABD: soft, NT, ND, +BS : Intact Neuro: non focal SKIN: chronic changes EXT: trace edema Results Result Diagram: 07/17/17 0847 07/16/17 0747 Results 24 hrs Laboratory Tests Test 07/16/17 12:15 07/16/17 17:36 07/16/17 22:59 07/17/17 08:44 Bedside Glucose 88 95 103 77 Test 07/17/17 08:47 White Blood Count 6.3 Red Blood Count 3.24 L Hemoglobin 9.6 L Hematocrit 30.3 L Mean Corpuscular Volume 93.5 Mean Corpuscular Hemoglobin 29.6 Mean Corpuscular Hemoglobin Concent 31.7 L Red Cell Distribution Width 15.0 H Platelet Count 166 Mean Platelet Volume 10.2 Neutrophils % 46.0 Lymphocytes % 28.3 Monocytes % 13.0 H Eosinophils % 11.9 H Basophils % 0.5 Nucleated Red Blood Cells % 0.0 Neutrophils # 2.9 Lymphocytes # 1.8 Monocytes # 0.8 Eosinophils # 0.8 H Basophils # 0.0 Nucleated Red Blood Cells # 0.0 Medications Medications Current Medications Ondansetron HCl (Zofran Inj) 4 mg Q6H PRN IV NAUSEA AND/OR VOMITING Last administered on 06/27/17 21:40; Admin Dose 4 MG; Start 06/13/17 at 15:30 Acetaminophen (Tylenol Tab) 650 mg Q6H PRN PO PAIN LEVEL 1-3 OR FEVER Last administered on 06/24/17 16:33; Admin Dose 650 MG; Start 06/13/17 at 15:30 Docusate Sodium (Colace) 100 mg Q12H PRN PO CONSTIPATION; Start 06/13/17 at 15 :30 Magnesium Hydroxide (Milk Of Mag) 30 ml DAILY PRN PO CONSTIPATION Last administered on 07/02/17 08:51; Admin Dose 30 ML; Start 06/13/17 at 15:30 Hydralazine HCl (Apresoline) 10 mg Q6H PRN IV ELEVATED BLOOD PRESSURE Last administered on 06/25/17 08:43; Admin Dose 10 MG; Start 06/13/17 at 15:30 Nitroglycerin (Nitroglycerin (Sl Tab) 0.4 Mg) 1 tab Q5M PRN SL ANGINA; Start 06/13/17 at 15:30 Atorvastatin Calcium (Lipitor) 10 mg HS PO Last administered on 06/16/17 21: 47; Admin Dose 10 MG; Start 06/13/17 at 21:00; Status Future Hold Levothyroxine Sodium (Synthroid) 100 mcg DAILY PO Last administered on 09:14; Admin Dose 100 MCG; Start 06/14/17 at 09:00 Montelukast Sodium (Singulair) 10 mg QHS PO Last administered on 07/16/17 22: 26; Admin Dose 10 MG; Start 06/13/17 at 21:00 Insulin Glargine (Lantus) 10 unit DAILY@20 SC ; Start 06/14/17 at 20:00; Status Future Hold Diagnostic Test (Pha) (Accu-Chek) 1 ea 02 XX Last administered on 06/24/17 02 :03; Admin Dose 1 EA; Start 06/15/17 at 02:00 Miscellaneous Information 1 ea NOTE XX ; Start 06/14/17 at 06:00 Glucose (Glutose) 15 gm Q15M PRN PO DECREASED GLUCOSE; Start 06/14/17 at 06:00 Glucose (Glutose) 22.5 gm Q15M PRN PO DECREASED GLUCOSE; Start 06/14/17 at 06: 00 Dextrose (D50w Syringe) 25 ml Q15M PRN IV DECREASED GLUCOSE Last administered on 06/17/17 04:41; Admin Dose 25 ML; Start 06/14/17 at 06:00 Dextrose (D50w Syringe) 50 ml Q15M PRN IV DECREASED GLUCOSE; Start 06/14/17 at 06:00 Glucagon (Glucagen) 1 mg Q15M PRN IM DECREASED GLUCOSE; Start 06/14/17 at 06: 00 Glucose (Glutose) 15 gm Q15M PRN BUCCAL DECREASED GLUCOSE; Start 06/14/17 at 06:00 Enoxaparin Sodium (Lovenox) 60 mg DAILY SC Last administered on 07/17/17 09: 21; Admin Dose 60 MG; Start 06/17/17 at 09:00 IV Flush (NS 10 ml) 10 ml PRN PRN IV IV PROTOCOL; Start 06/16/17 at 14:00 Haloperidol (Haldol) 1 mg Q12 PRN IV agitation Last administered on 06/16/17 21:56; Admin Dose 1 MG; Start 06/16/17 at 20:30 Metoprolol Tartrate (Lopressor) 50 mg BID PO Last administered on 06/23/17 20 :02; Admin Dose 50 MG; Start 06/19/17 at 21:00; Status Future hold Diltiazem HCl (Cardizem) 60 mg Q8 GTB Last administered on 07/17/17 05:56; Admin Dose 60 MG; Start 06/23/17 at 14:00; Status Future hold Hydralazine HCl (Apresoline) 25 mg Q8 PO Last administered on 07/17/17 05:57 ; Admin Dose 25 MG; Start 06/30/17 at 14:00 Carvedilol (Coreg) 6.25 mg BID PO Last administered on 07/17/17 09:13; Admin Dose 6.25 MG; Start 07/02/17 at 21:00 Pantoprazole (Protonix Tab) 40 mg BID@ PO Last administered on 07/17/17 05:55; Admin Dose 40 MG; Start 07/02/17 at 18:00 Ferrous Sulfate (Ferrous Sulfate (Ec)) 325 mg DAILY PO Last administered on 09:13; Admin Dose 325 MG; Start 07/06/17 at 12:00 Nystatin (Nystatin Powder) 1 applic BID TOP Last administered on 07/17/17 09: 15; Admin Dose 1 APPLIC; Start 07/10/17 at 21:00 Triamcinolone Acetonide (Kenalog 0.025% Lotion) 1 applic BID TOP Last administered on 07/17/17 09:17; Admin Dose 1 APPLIC; Start 07/11/17 at 00:00 Diphenhydramine HCl (Benadryl) 50 mg Q6H PRN IV rash/itching Last administered on 07/11/17 05:43; Admin Dose 50 MG; Start 07/11/17 at 00:00 Calcium Carbonate (Oyster Shell Calcium) 1.25 gm BID PO Last administered on 09:12; Admin Dose 1.25 GM; Start 07/13/17 at 09:00 Sertraline HCl (Zoloft) 25 mg DAILY PO Last administered on 07/17/17 09:14; Admin Dose 25 MG; Start 07/15/17 at 09:00 LILIAN ABEBE MD Jul 17, 2017 09:50
--- NOTE | 2017-07-17 12:47 | CONS ---
Date/Time of Note Date/Time of Note DATE: 07/17/17 TIME: 12:47 Consult Date/Type/Reason Admit Date/Time Jun 14, 2017 at 09:27 Type of Consultation: Pulmonary Ordering Provider: SARAH VINCENT Subjective Awake alert comfortable, off bipap. Objective Vital Signs Date Time Temp Pulse Resp B/P Pulse Ox O2 Delivery O2 Flow Rate FiO2 07/17/17 12:25 75 98 30 07/17/17 11:59 97.5 17 136/66 07/17/17 07:00 2.0 07/16/17 20:00 Nasal Cannula Intake and Output 07/16/17 07/16/17 07/17/17 15:00 23:00 07:00 Intake Total 400 ml 220 ml Output Total 450 ml 400 ml Balance -50 ml -180 ml Exam PHYSICAL EXAMINATION GENERAL: Elderly lady comfortable at rest. No distress. VITAL SIGNS: see below. HEENT: Pupils equal, round, and reactive to light. CARDIAC: S1, S2, 1/6 systolic ejection murmur CHEST: Diminished air entry bilaterally. ABDOMEN: Mildly distended. Bowel sounds present no guarding or rebound EXTREMITIES: No cyanosis, clubbing edema +1 NEUROLOGIC: Generalized weakness Results/Medications Result Diagram: 07/17/17 0847 07/17/17 0847 Results 24 hrs Laboratory Tests Test 07/16/17 17:36 07/16/17 22:59 07/17/17 08:44 07/17/17 08:47 Bedside Glucose 95 103 77 White Blood Count 6.3 Red Blood Count 3.24 L Hemoglobin 9.6 L Hematocrit 30.3 L Mean Corpuscular Volume 93.5 Mean Corpuscular Hemoglobin 29.6 Mean Corpuscular Hemoglobin Concent 31.7 L Red Cell Distribution Width 15.0 H Platelet Count 166 Mean Platelet Volume 10.2 Neutrophils % 46.0 Lymphocytes % 28.3 Monocytes % 13.0 H Eosinophils % 11.9 H Basophils % 0.5 Nucleated Red Blood Cells % 0.0 Neutrophils # 2.9 Lymphocytes # 1.8 Monocytes # 0.8 Eosinophils # 0.8 H Basophils # 0.0 Nucleated Red Blood Cells # 0.0 Sodium Level 138 Potassium Level 4.1 Chloride Level 97 Carbon Dioxide Level 36 H Anion Gap 9 Blood Urea Nitrogen 17 Creatinine 1.34 H Glucose Level 73 Calcium Level 8.7 Medications Current Medications Ondansetron HCl (Zofran Inj) 4 mg Q6H PRN IV NAUSEA AND/OR VOMITING Last administered on 06/27/17 21:40; Admin Dose 4 MG; Start 06/13/17 at 15:30 Acetaminophen (Tylenol Tab) 650 mg Q6H PRN PO PAIN LEVEL 1-3 OR FEVER Last administered on 06/24/17 16:33; Admin Dose 650 MG; Start 06/13/17 at 15:30 Docusate Sodium (Colace) 100 mg Q12H PRN PO CONSTIPATION; Start 06/13/17 at 15 :30 Magnesium Hydroxide (Milk Of Mag) 30 ml DAILY PRN PO CONSTIPATION Last administered on 07/02/17 08:51; Admin Dose 30 ML; Start 06/13/17 at 15:30 Hydralazine HCl (Apresoline) 10 mg Q6H PRN IV ELEVATED BLOOD PRESSURE Last administered on 06/25/17 08:43; Admin Dose 10 MG; Start 06/13/17 at 15:30 Nitroglycerin (Nitroglycerin (Sl Tab) 0.4 Mg) 1 tab Q5M PRN SL ANGINA; Start 06/13/17 at 15:30 Atorvastatin Calcium (Lipitor) 10 mg HS PO Last administered on 06/16/17 21: 47; Admin Dose 10 MG; Start 06/13/17 at 21:00; Status Future Hold Levothyroxine Sodium (Synthroid) 100 mcg DAILY PO Last administered on 09:14; Admin Dose 100 MCG; Start 06/14/17 at 09:00 Montelukast Sodium (Singulair) 10 mg QHS PO Last administered on 07/16/17 22: 26; Admin Dose 10 MG; Start 06/13/17 at 21:00 Insulin Glargine (Lantus) 10 unit DAILY@20 SC ; Start 06/14/17 at 20:00; Status Future Hold Diagnostic Test (Pha) (Accu-Chek) 1 ea 02 XX Last administered on 06/24/17 02 :03; Admin Dose 1 EA; Start 06/15/17 at 02:00 Miscellaneous Information 1 ea NOTE XX ; Start 06/14/17 at 06:00 Glucose (Glutose) 15 gm Q15M PRN PO DECREASED GLUCOSE; Start 06/14/17 at 06:00 Glucose (Glutose) 22.5 gm Q15M PRN PO DECREASED GLUCOSE; Start 06/14/17 at 06: 00 Dextrose (D50w Syringe) 25 ml Q15M PRN IV DECREASED GLUCOSE Last administered on 06/17/17 04:41; Admin Dose 25 ML; Start 06/14/17 at 06:00 Dextrose (D50w Syringe) 50 ml Q15M PRN IV DECREASED GLUCOSE; Start 06/14/17 at 06:00 Glucagon (Glucagen) 1 mg Q15M PRN IM DECREASED GLUCOSE; Start 06/14/17 at 06: 00 Glucose (Glutose) 15 gm Q15M PRN BUCCAL DECREASED GLUCOSE; Start 06/14/17 at 06:00 Enoxaparin Sodium (Lovenox) 60 mg DAILY SC Last administered on 07/17/17 09: 21; Admin Dose 60 MG; Start 06/17/17 at 09:00 IV Flush (NS 10 ml) 10 ml PRN PRN IV IV PROTOCOL; Start 06/16/17 at 14:00 Haloperidol (Haldol) 1 mg Q12 PRN IV agitation Last administered on 06/16/17 21:56; Admin Dose 1 MG; Start 06/16/17 at 20:30 Metoprolol Tartrate (Lopressor) 50 mg BID PO Last administered on 06/23/17 20 :02; Admin Dose 50 MG; Start 06/19/17 at 21:00; Status Future hold Diltiazem HCl (Cardizem) 60 mg Q8 GTB Last administered on 07/17/17 05:56; Admin Dose 60 MG; Start 06/23/17 at 14:00; Status Future hold Hydralazine HCl (Apresoline) 25 mg Q8 PO Last administered on 07/17/17 05:57 ; Admin Dose 25 MG; Start 06/30/17 at 14:00 Carvedilol (Coreg) 6.25 mg BID PO Last administered on 07/17/17 09:13; Admin Dose 6.25 MG; Start 07/02/17 at 21:00 Pantoprazole (Protonix Tab) 40 mg BID@,18 PO Last administered on 07/17/17 05:55; Admin Dose 40 MG; Start 07/02/17 at 18:00 Ferrous Sulfate (Ferrous Sulfate (Ec)) 325 mg DAILY PO Last administered on 09:13; Admin Dose 325 MG; Start 07/06/17 at 12:00 Nystatin (Nystatin Powder) 1 applic BID TOP Last administered on 07/17/17 09: 15; Admin Dose 1 APPLIC; Start 07/10/17 at 21:00 Triamcinolone Acetonide (Kenalog 0.025% Lotion) 1 applic BID TOP Last administered on 07/17/17 09:17; Admin Dose 1 APPLIC; Start 07/11/17 at 00:00 Diphenhydramine HCl (Benadryl) 50 mg Q6H PRN IV rash/itching Last administered on 07/11/17 05:43; Admin Dose 50 MG; Start 07/11/17 at 00:00 Calcium Carbonate (Oyster Shell Calcium) 1.25 gm BID PO Last administered on 09:12; Admin Dose 1.25 GM; Start 07/13/17 at 09:00 Sertraline HCl (Zoloft) 25 mg DAILY PO Last administered on 07/17/17 09:14; Admin Dose 25 MG; Start 07/15/17 at 09:00 Assessment/Plan Chief Complaint/Hosp Course IMP: 1. s/p Acute hypercapnic respiratory failure 2. HTN 3. Atrial fibrillation 4. Diabetes mellitus. 5. Status post shock. 6. Renal insufficiency. RECS: 1. Continue BiPAP at night and as needed. 2. Rate control per cardiology. 3. Avoid sedation 4. Deep venous thrombosis and gastrointestinal prophylaxis. 5. Aspiration precautions. 6. PT/OT/OOB dc planning. home bipap to be set up. Problems: YAZMIN VARGAS MD, [facility] Jul 17, 2017 12:47
--- NOTE | 2017-07-17 16:54 | PN ---
DATE: 07/17/2017 SUBJECTIVE: The patient is feeling well, no shortness of breath. OBJECTIVE: VITAL SIGNS: Temperature 98.3, pulse 75, respirations 18, blood pressure 132/61 , oxygen saturation 98% on FIO2 30%. GENERAL: Well-developed, well-nourished female in no acute distress, lying in bed. CHEST: Clear to auscultation bilaterally except for decreased breath sounds bilateral bases. HEART: Irregularly irregular. ABDOMEN: Soft, nontender, nondistended. EXTREMITIES: No cyanosis, clubbing. There is trace to 1+ bilateral lower extremity edema. NEUROLOGIC: Nonfocal. LABORATORY DATA: Pending at the time of this dictation. ASSESSMENT AND PLAN 1. Acute respiratory failure with hypercapnia and hypoxemia due to Hypoventilation Syndrome: The patient remains stable and is okay for discharge pending getting BiPAP and oxygen at home. Will discharge home on 2 liter nasal cannula oxygen with BiPAP to be done for 10 hours overnight. 2. Atrial fibrillation, remains stable. Continue with current medications. 3. Acute combined congestive heart failure/coronary artery disease/hypertension , heart failure is resolved. Continue with current medications and adjust as needed. 4. Diabetes, stable. Continue with diet as patient no longer needs medications. 5. Acute on chronic renal insufficiency. Improved. We will continue to monitor. 6. Anemia. Stable after transfusion and no further blood loss and will continue on iron 7. Hypothyroidism, stable. Continue with patient's medications. 8. Hyperlipidemia. Stable. Continue with diet and meds. 9. Depression, will continue with sertraline. 10. Discharge planning. The patient is stable for discharge home, but are waiting approval of patient's equipment that will be needed as patient needs a hospital bed, BiPAP machine, oxygen, bedside commode. This is to be arranged through insurance. Dictated By: MORGAN SNOW MD, SR/TAZ Conf#: [id number] DID#: [id number]
[2017-07-17] MEDS: MONTELUKAST 10 MG TAB PO SCH (20:41)
[2017-07-18] VITALS (24 sets, daily range): BP systolic 102–172; BP diastolic 57–99; PULSE 65–114; RESP 17–21
[2017-07-18] MEDS: ACCU-CHEK XX SCH (02:00)
[2017-07-18] MEDS: PANTOPRAZOLE (EC) 40 MG TAB PO SCH ×2 (05:46→18:01)
[2017-07-18] MEDS: DILTIAZEM 60 MG TAB GTB SCH ×3 (05:46→21:33)
[2017-07-18] MEDS: INSULIN ASPART [NOVOLOG] 3 ML PEN SC SCH ×4 (07:25→20:24)
[2017-07-18] MEDS: CALCIUM CARBONATE 1.25 GM TAB PO SCH ×2 (09:14→20:23)
[2017-07-18] MEDS: SERTRALINE 50 MG TAB PO SCH (09:15)
[2017-07-18] MEDS: LEVOTHYROXINE 100 MCG TAB PO SCH (09:15)
[2017-07-18] MEDS: FERROUS SULFATE (EC) 325 MG TAB PO SCH (09:16)
[2017-07-18] MEDS: BALSAM PERU/CASTOR OIL 60 GM TUBE TOP SCH ×2 (09:19→20:26)
[2017-07-18] MEDS: TRIAMCINOLONE ACET 0.025% 60 ML LOT TOP SCH ×2 (09:19→20:26)
[2017-07-18] MEDS: NYSTATIN 30 GM POWDER BTL TOP SCH ×2 (09:19→20:26)
[2017-07-18] MEDS: ENOXAPARIN 60 MG/0.6 ML SYG SC SCH (09:27)
--- NOTE | 2017-07-18 15:55 | CONS ---
Date/Time of Note Date/Time of Note DATE: 07/18/17 TIME: 15:52 Assessment/Plan Assessment/Plan Chief Complaint/Hosp Course IMP: 1.Hypotension-improved again with stable BP/NL EF by echo this admit 2. AF with RVR-yesterday apparently had pause 3 seconds and all estrella agents were held- now again tolerating coreg/dilt with good heart rates and no sig eren or pause 3. Renal failure-ongoing but slowly improving 4. Hypercarbic resp failure s/p extubation-improved with BIPAP when sleeping as neceessary 5. Hypothyroid 6. PLeural effusion-s/p thoracentesis 7. Anemia-a/p transfusion with ? transfusion reaction Recc: -Tele -serial ecg's -Change lovenox to eliquis in anticipation of d/c -Hold asa given anemia -Follow HR/BP/volume status closely -BB/CCB only as tolerated -Continue hydralazine as well with labile BP but overall reasonable -PT/OT -Follow volume status closely and consider rusumption of low dose daily po lasix -PRN nightime BPIP Problems: Consultation Date/Type/Reason Admit Date/Time Jun 14, 2017 at 09:27 Initial Consult Date 06/15/17 Type of Consultation: cardiology Reason for Consultation AF Referring Provider: SARAH VINCENT Exam/Review of Systems Vital Signs Vitals Vital Signs Date Time Temp Pulse Resp B/P Pulse Ox O2 Delivery O2 Flow Rate FiO2 07/18/17 15:48 84 Room Air 07/18/17 15:12 98.3 92 18 172/79 07/18/17 12:00 3.0 07/18/17 11:30 30 Intake and Output 07/17/17 07/17/17 07/18/17 15:00 23:00 07:00 Intake Total 900 ml Balance 900 ml Exam Review of Systems: CONSTITUTIONAL: No fevers, chills. PULMONARY: No sob CARDIOVASCULAR: No chest pain/palpitations GASTROINTESTINAL: No nausea/vomiting. GENITOURINARY: No hematuria/dysuria. MUSCULOSKELETAL: No myagias/arthalgias. PSYCHIATRIC: The patient denies depression. NEUROLOGIC: No weakness Constitutional: alert Psych: no complaints Head: normocephalic ENMT: mucosa pink and moist Neck: jvd (9 cm water), supple Respiratory: diminished breath sounds (at bases/B) Cardiovascular: irregular rhythm Gastrointestinal: non-tender, soft Musculoskeletal: muscle weakness (generalized) Extremities: pitting pedal edema (trace/B) Neurological: lethargic Results Result Diagram: 07/17/17 0847 07/17/17 0847 Results 24 hrs Laboratory Tests Test 07/17/17 17:58 07/17/17 20:38 07/17/17 20:40 07/18/17 08:11 Bedside Glucose 82 98 80 Lab Scanned Report BLOOD TRANSFUSION Test 07/18/17 12:10 Bedside Glucose 80 Medications Medications Current Medications Ondansetron HCl (Zofran Inj) 4 mg Q6H PRN IV NAUSEA AND/OR VOMITING Last administered on 06/27/17 21:40; Admin Dose 4 MG; Start 06/13/17 at 15:30 Acetaminophen (Tylenol Tab) 650 mg Q6H PRN PO PAIN LEVEL 1-3 OR FEVER Last administered on 06/24/17 16:33; Admin Dose 650 MG; Start 06/13/17 at 15:30 Docusate Sodium (Colace) 100 mg Q12H PRN PO CONSTIPATION; Start 06/13/17 at 15 :30 Magnesium Hydroxide (Milk Of Mag) 30 ml DAILY PRN PO CONSTIPATION Last administered on 07/02/17 08:51; Admin Dose 30 ML; Start 06/13/17 at 15:30 Hydralazine HCl (Apresoline) 10 mg Q6H PRN IV ELEVATED BLOOD PRESSURE Last administered on 06/25/17 08:43; Admin Dose 10 MG; Start 06/13/17 at 15:30 Nitroglycerin (Nitroglycerin (Sl Tab) 0.4 Mg) 1 tab Q5M PRN SL ANGINA; Start 06/13/17 at 15:30 Atorvastatin Calcium (Lipitor) 10 mg HS PO Last administered on 06/16/17 21: 47; Admin Dose 10 MG; Start 06/13/17 at 21:00; Status Future Hold Levothyroxine Sodium (Synthroid) 100 mcg DAILY PO Last administered on 09:15; Admin Dose 100 MCG; Start 06/14/17 at 09:00 Montelukast Sodium (Singulair) 10 mg QHS PO Last administered on 07/17/17 20: 41; Admin Dose 10 MG; Start 06/13/17 at 21:00 Insulin Glargine (Lantus) 10 unit DAILY@20 SC ; Start 06/14/17 at 20:00; Status Future Hold Diagnostic Test (Pha) (Accu-Chek) 1 ea 02 XX Last administered on 06/24/17 02 :03; Admin Dose 1 EA; Start 06/15/17 at 02:00 Miscellaneous Information 1 ea NOTE XX ; Start 06/14/17 at 06:00 Glucose (Glutose) 15 gm Q15M PRN PO DECREASED GLUCOSE; Start 06/14/17 at 06:00 Glucose (Glutose) 22.5 gm Q15M PRN PO DECREASED GLUCOSE; Start 06/14/17 at 06: 00 Dextrose (D50w Syringe) 25 ml Q15M PRN IV DECREASED GLUCOSE Last administered on 06/17/17 04:41; Admin Dose 25 ML; Start 06/14/17 at 06:00 Dextrose (D50w Syringe) 50 ml Q15M PRN IV DECREASED GLUCOSE; Start 06/14/17 at 06:00 Glucagon (Glucagen) 1 mg Q15M PRN IM DECREASED GLUCOSE; Start 06/14/17 at 06: 00 Glucose (Glutose) 15 gm Q15M PRN BUCCAL DECREASED GLUCOSE; Start 06/14/17 at 06:00 Enoxaparin Sodium (Lovenox) 60 mg DAILY SC Last administered on 07/18/17 09: 27; Admin Dose 60 MG; Start 06/17/17 at 09:00 IV Flush (NS 10 ml) 10 ml PRN PRN IV IV PROTOCOL; Start 06/16/17 at 14:00 Haloperidol (Haldol) 1 mg Q12 PRN IV agitation Last administered on 06/16/17 21:56; Admin Dose 1 MG; Start 06/16/17 at 20:30 Metoprolol Tartrate (Lopressor) 50 mg BID PO Last administered on 06/23/17 20 :02; Admin Dose 50 MG; Start 06/19/17 at 21:00; Status Future hold Diltiazem HCl (Cardizem) 60 mg Q8 GTB Last administered on 07/18/17 05:46; Admin Dose 60 MG; Start 06/23/17 at 14:00; Status Future hold Hydralazine HCl (Apresoline) 25 mg Q8 PO Last administered on 07/18/17 05:46 ; Admin Dose 25 MG; Start 06/30/17 at 14:00 Carvedilol (Coreg) 6.25 mg BID PO Last administered on 07/18/17 09:18; Admin Dose 6.25 MG; Start 07/02/17 at 21:00 Pantoprazole (Protonix Tab) 40 mg BID@,18 PO Last administered on 07/18/17 05:46; Admin Dose 40 MG; Start 07/02/17 at 18:00 Ferrous Sulfate (Ferrous Sulfate (Ec)) 325 mg DAILY PO Last administered on 09:16; Admin Dose 325 MG; Start 07/06/17 at 12:00 Nystatin (Nystatin Powder) 1 applic BID TOP Last administered on 07/18/17 09: 19; Admin Dose 1 APPLIC; Start 07/10/17 at 21:00 Triamcinolone Acetonide (Kenalog 0.025% Lotion) 1 applic BID TOP Last administered on 07/18/17 09:19; Admin Dose 1 APPLIC; Start 07/11/17 at 00:00 Diphenhydramine HCl (Benadryl) 50 mg Q6H PRN IV rash/itching Last administered on 07/11/17 05:43; Admin Dose 50 MG; Start 07/11/17 at 00:00 Calcium Carbonate (Oyster Shell Calcium) 1.25 gm BID PO Last administered on 09:14; Admin Dose 1.25 GM; Start 07/13/17 at 09:00 Sertraline HCl (Zoloft) 25 mg DAILY PO Last administered on 07/18/17 09:15; Admin Dose 25 MG; Start 07/15/17 at 09:00 WEN GOFF Jul 18, 2017 15:55
--- NOTE | 2017-07-18 16:12 | CONS ---
Date/Time of Note Date/Time of Note DATE: 07/18/17 TIME: 16:11 Consult Date/Type/Reason Admit Date/Time Jun 14, 2017 at 09:27 Type of Consultation: Pulm Ordering Provider: SARAH VINCENT Subjective Comfortable this morning. Objective Vital Signs Date Time Temp Pulse Resp B/P Pulse Ox O2 Delivery O2 Flow Rate FiO2 07/18/17 15:48 84 Room Air 07/18/17 15:12 98.3 92 18 172/79 07/18/17 12:00 3.0 07/18/17 11:30 30 Intake and Output 07/17/17 07/17/17 07/18/17 15:00 23:00 07:00 Intake Total 900 ml Balance 900 ml Exam PHYSICAL EXAMINATION GENERAL: Elderly lady comfortable at rest. No distress. VITAL SIGNS: see below. HEENT: Pupils equal, round, and reactive to light. CARDIAC: S1, S2, 1/6 systolic ejection murmur CHEST: Diminished air entry bilaterally. ABDOMEN: Mildly distended. Bowel sounds present no guarding or rebound EXTREMITIES: No cyanosis, clubbing edema +1 NEUROLOGIC: Generalized weakness Results/Medications Result Diagram: 07/17/17 0847 07/17/17 0847 Results 24 hrs Laboratory Tests Test 07/17/17 17:58 07/17/17 20:38 07/17/17 20:40 07/18/17 08:11 Bedside Glucose 82 98 80 Lab Scanned Report BLOOD TRANSFUSION Test 07/18/17 12:10 Bedside Glucose 80 Medications Current Medications Ondansetron HCl (Zofran Inj) 4 mg Q6H PRN IV NAUSEA AND/OR VOMITING Last administered on 06/27/17 21:40; Admin Dose 4 MG; Start 06/13/17 at 15:30 Acetaminophen (Tylenol Tab) 650 mg Q6H PRN PO PAIN LEVEL 1-3 OR FEVER Last administered on 06/24/17 16:33; Admin Dose 650 MG; Start 06/13/17 at 15:30 Docusate Sodium (Colace) 100 mg Q12H PRN PO CONSTIPATION; Start 06/13/17 at 15 :30 Magnesium Hydroxide (Milk Of Mag) 30 ml DAILY PRN PO CONSTIPATION Last administered on 07/02/17 08:51; Admin Dose 30 ML; Start 06/13/17 at 15:30 Hydralazine HCl (Apresoline) 10 mg Q6H PRN IV ELEVATED BLOOD PRESSURE Last administered on 06/25/17 08:43; Admin Dose 10 MG; Start 06/13/17 at 15:30 Nitroglycerin (Nitroglycerin (Sl Tab) 0.4 Mg) 1 tab Q5M PRN SL ANGINA; Start 06/13/17 at 15:30 Atorvastatin Calcium (Lipitor) 10 mg HS PO Last administered on 06/16/17 21: 47; Admin Dose 10 MG; Start 06/13/17 at 21:00; Status Future Hold Levothyroxine Sodium (Synthroid) 100 mcg DAILY PO Last administered on 09:15; Admin Dose 100 MCG; Start 06/14/17 at 09:00 Montelukast Sodium (Singulair) 10 mg QHS PO Last administered on 07/17/17 20: 41; Admin Dose 10 MG; Start 06/13/17 at 21:00 Insulin Glargine (Lantus) 10 unit DAILY@20 SC ; Start 06/14/17 at 20:00; Status Future Hold Diagnostic Test (Pha) (Accu-Chek) 1 ea 02 XX Last administered on 06/24/17 02 :03; Admin Dose 1 EA; Start 06/15/17 at 02:00 Miscellaneous Information 1 ea NOTE XX ; Start 06/14/17 at 06:00 Glucose (Glutose) 15 gm Q15M PRN PO DECREASED GLUCOSE; Start 06/14/17 at 06:00 Glucose (Glutose) 22.5 gm Q15M PRN PO DECREASED GLUCOSE; Start 06/14/17 at 06: 00 Dextrose (D50w Syringe) 25 ml Q15M PRN IV DECREASED GLUCOSE Last administered on 06/17/17 04:41; Admin Dose 25 ML; Start 06/14/17 at 06:00 Dextrose (D50w Syringe) 50 ml Q15M PRN IV DECREASED GLUCOSE; Start 06/14/17 at 06:00 Glucagon (Glucagen) 1 mg Q15M PRN IM DECREASED GLUCOSE; Start 06/14/17 at 06: 00 Glucose (Glutose) 15 gm Q15M PRN BUCCAL DECREASED GLUCOSE; Start 06/14/17 at 06:00 IV Flush (NS 10 ml) 10 ml PRN PRN IV IV PROTOCOL; Start 06/16/17 at 14:00 Haloperidol (Haldol) 1 mg Q12 PRN IV agitation Last administered on 06/16/17 21:56; Admin Dose 1 MG; Start 06/16/17 at 20:30 Metoprolol Tartrate (Lopressor) 50 mg BID PO Last administered on 06/23/17 20 :02; Admin Dose 50 MG; Start 06/19/17 at 21:00; Status Future hold Diltiazem HCl (Cardizem) 60 mg Q8 GTB Last administered on 07/18/17 05:46; Admin Dose 60 MG; Start 06/23/17 at 14:00; Status Future hold Hydralazine HCl (Apresoline) 25 mg Q8 PO Last administered on 07/18/17 05:46 ; Admin Dose 25 MG; Start 06/30/17 at 14:00 Carvedilol (Coreg) 6.25 mg BID PO Last administered on 07/18/17 09:18; Admin Dose 6.25 MG; Start 07/02/17 at 21:00 Pantoprazole (Protonix Tab) 40 mg BID@06,18 PO Last administered on 07/18/17 05:46; Admin Dose 40 MG; Start 07/02/17 at 18:00 Ferrous Sulfate (Ferrous Sulfate (Ec)) 325 mg DAILY PO Last administered on 09:16; Admin Dose 325 MG; Start 07/06/17 at 12:00 Nystatin (Nystatin Powder) 1 applic BID TOP Last administered on 07/18/17 09: 19; Admin Dose 1 APPLIC; Start 07/10/17 at 21:00 Triamcinolone Acetonide (Kenalog 0.025% Lotion) 1 applic BID TOP Last administered on 07/18/17 09:19; Admin Dose 1 APPLIC; Start 07/11/17 at 00:00 Diphenhydramine HCl (Benadryl) 50 mg Q6H PRN IV rash/itching Last administered on 07/11/17 05:43; Admin Dose 50 MG; Start 07/11/17 at 00:00 Calcium Carbonate (Oyster Shell Calcium) 1.25 gm BID PO Last administered on 09:14; Admin Dose 1.25 GM; Start 07/13/17 at 09:00 Sertraline HCl (Zoloft) 25 mg DAILY PO Last administered on 07/18/17t 09:15; Admin Dose 25 MG; Start 07/15/17 at 09:00 Furosemide (Lasix) 20 mg DAILY@06 PO ; Start 07/19/17 at 06:00 Apixaban (Eliquis) 2.5 mg BID PO ; Start 07/18/17 at 21:00 Assessment/Plan Chief Complaint/Hosp Course IMP: 1. s/p Acute hypercapnic respiratory failure 2. HTN 3. Atrial fibrillation 4. Diabetes mellitus. 5. Status post shock. 6. Renal insufficiency. RECS: 1. Continue BiPAP at night and as needed. 2. Rate control per cardiology. 3. Avoid sedation 4. Deep venous thrombosis and gastrointestinal prophylaxis. 5. Aspiration precautions. 6. PT/OT/OOB dc planning. home bipap to be set up. Problems: YAZMIN VARGAS MD, [facility] Jul 18, 2017 16:12
[2017-07-18] MEDS: APIXABAN 5 MG TABLET PO SCH (20:22)
[2017-07-18] MEDS: MONTELUKAST 10 MG TAB PO SCH (20:23)
[2017-07-19] VITALS (23 sets, daily range): BP systolic 71–160; BP diastolic 46–82; PULSE 48–95; RESP 20–24
[2017-07-19] MEDS: ACCU-CHEK XX SCH (02:00)
[2017-07-19] MEDS: PANTOPRAZOLE (EC) 40 MG TAB PO SCH ×2 (05:44→18:37)
[2017-07-19] MEDS: DILTIAZEM 60 MG TAB GTB SCH (05:44)
[2017-07-19] MEDS: FUROSEMIDE 20 MG TAB PO SCH (05:45)
[2017-07-19] MEDS: INSULIN ASPART [NOVOLOG] 3 ML PEN SC SCH ×4 (07:25→21:00)
--- NOTE | 2017-07-19 08:56 | PN ---
DATE: 07/18/2017 SUBJECTIVE: The patient continues to feel better. No new complaints. The patient does feel weak, slight lightheadedness when standing. OBJECTIVE: VITAL SIGNS: Temperature 98.3, pulse 79, last blood pressure 172/79, oxygen saturation 84% on room air, 100% on 3 liter nasal cannula oxygen. GENERAL: Well-developed, well-nourished female in no acute distress, lying in bed. CHEST: Clear to auscultation bilaterally except for decreased breath sounds bilateral bases. HEART: Irregularly irregular. ABDOMEN: Soft, nontender, normoactive bowel sounds. EXTREMITIES: No cyanosis, clubbing. There is 1+ bilateral lower extremity edema. NEUROLOGIC: Nonfocal. ASSESSMENT AND PLAN: 1. Acute respiratory failure with hypercapnia secondary to hypoventilation syndrome/hypoxemia, impr alka. Patient continues to improve, but requires BiPAP overnight as well as 24-hour oxygen. Naila lyon will need to continue with 3 liter nasal cannula oxygen as an outpatient as well as BiPAP for 10 h ours per day. The patient also will need the hospital bed with the bed elevated at all times greate r than 30 degrees to prevent shortness of breath and to allow for repositioning every 2 hours. 2. Atrial fibrillation, improved. We will continue with medications and adjust as necessary. 3. Acute heart failure/coronary disease/hypertension improved. We will continue with current medic ations and adjust as needed. 4. Acute on chronic renal failure, improved. We will continue to monitor as an outpatient. The pa tient is improved at this stage and no further treatment is required. 5. Anemia status post-acute blood loss, improved status post transfusion and no further loss. We w ill continue with iron replacement, but no need for further transfusions. 6. Diabetes, stable without need for medications. We will continue with diet alone. 7. Hypothyroidism, stable. Continue with medications. 8. Tinea corpora improved. Continue with nystatin powder. [facility] and q.2 hour repositioning of the patient to prevent bedsores. 9. Depression and anxiety, improved. We will continue with medications. 10. Hyperlipidemia. Stable. Continue with diet and medications. 11. Discharge planning: The patient is stable for discharge to home, but continued to await approv al for the equipment including BiPAP machine, oxygen at 3 liter nasal cannula O2 and a hospital bed and a bedside commode. Once this is arranged, the patient will be discharged home with followup wit h nv next week. The patient already has a scheduled appointment for followup. Dictated By: MORGAN SNOW MD SR/TAZ Conf#: [id number] DID#: [id number]
[2017-07-19] MEDS: CALCIUM CARBONATE 1.25 GM TAB PO SCH ×2 (09:35→21:04)
[2017-07-19] MEDS: LEVOTHYROXINE 100 MCG TAB PO SCH (09:35)
[2017-07-19] MEDS: FERROUS SULFATE (EC) 325 MG TAB PO SCH (09:36)
[2017-07-19] MEDS: SERTRALINE 50 MG TAB PO SCH (09:36)
[2017-07-19] MEDS: APIXABAN 5 MG TABLET PO SCH ×2 (09:39→21:04)
[2017-07-19] MEDS: BALSAM PERU/CASTOR OIL 60 GM TUBE TOP SCH ×2 (09:40→21:07)
[2017-07-19] MEDS: TRIAMCINOLONE ACET 0.025% 60 ML LOT TOP SCH ×2 (09:40→21:05)
[2017-07-19] MEDS: NYSTATIN 30 GM POWDER BTL TOP SCH ×2 (09:40→21:05)
--- NOTE | 2017-07-19 10:47 | CONS ---
Date/Time of Note Date/Time of Note DATE: 07/19/17 TIME: 10:45 Assessment/Plan Assessment/Plan Additional Assessment/Plan 1.Hypertension - NL EF by echo this admit - now BP high - Con't to adjust Rx as needed. 2. AF with RVR- prior pauses with BB, all estrella agents were held- now again tolerating coreg/dilt with good heart rates and no sig eren or pause - RATE CONTROLLED NOW. No Class I indication for pacer now. 3. Renal failure-ongoing but slowly improving - stable. 4. Hypercarbic resp failure s/p extubation-improved with BIPAP when sleeping as necessary - PULMONARY TEAM FOLLOWS. 5. Hypothyroid - Rx as needed. 6. PLeural effusion-s/p thoracentesis - improved SOB - stable. 7. Anemia-a/p transfusion with ? transfusion reaction Consultation Date/Type/Reason Admit Date/Time Jun 14, 2017 at 09:27 Type of Consultation: Pulm Referring Provider: SARAH VINCENT 24 HR Interval Summary Free Text/Dictation Back on BiPAP for changes - no CP now - BP on high range - con't to adjust Rx gently. ROS: No fever, no chills, no nausea, no vomiting, no diarrhea/constipation No recent weight changes No chest pain, no PND, no orthopnea + SOB No dizziness, blurred vision No thirst, no heat or cold intolerance Exam/Review of Systems Vital Signs Vitals Vital Signs Date Time Temp Pulse Resp B/P Pulse Ox O2 Delivery O2 Flow Rate FiO2 07/19/17 08:30 99 2.0 07/19/17 08:07 81 07/19/17 07:57 99.0 22 160/77 07/19/17 07:40 30 07/18/17 21:53 BIPAP Intake and Output 07/18/17 07/18/17 07/19/17 15:00 23:00 07:00 Intake Total 550 ml Balance 550 ml Exam General: WN/WD/NAD, AOx 3 HEENT: Unicetric/atraumatic/EOMI (follows commands) NECK: JVD elevated, no thyromegaly Lymph: no lymphadenopathy HEART: regular with no S3, II/ systolic murmur at apex LUNGS: Coarse sounds ABD: soft, NT, ND, +BS : Intact Neuro: non focal SKIN: chronic changes EXT: trace edema Results Result Diagram: 07/17/17 0847 07/17/17 0847 Results 24 hrs Laboratory Tests Test 07/18/17 12:10 07/18/17 17:59 07/18/17 20:21 07/19/17 08:08 Bedside Glucose 80 85 91 72 Medications Medications Current Medications Ondansetron HCl (Zofran Inj) 4 mg Q6H PRN IV NAUSEA AND/OR VOMITING Last administered on 06/27/17 21:40; Admin Dose 4 MG; Start 06/13/17 at 15:30 Acetaminophen (Tylenol Tab) 650 mg Q6H PRN PO PAIN LEVEL 1-3 OR FEVER Last administered on 06/24/17 16:33; Admin Dose 650 MG; Start 06/13/17 at 15:30 Docusate Sodium (Colace) 100 mg Q12H PRN PO CONSTIPATION; Start 06/13/17 at 15 :30 Magnesium Hydroxide (Milk Of Mag) 30 ml DAILY PRN PO CONSTIPATION Last administered on 07/02/17 08:51; Admin Dose 30 ML; Start 06/13/17 at 15:30 Hydralazine HCl (Apresoline) 10 mg Q6H PRN IV ELEVATED BLOOD PRESSURE Last administered on 06/25/17 08:43; Admin Dose 10 MG; Start 06/13/17 at 15:30 Nitroglycerin (Nitroglycerin (Sl Tab) 0.4 Mg) 1 tab Q5M PRN SL ANGINA; Start 06/13/17 at 15:30 Atorvastatin Calcium (Lipitor) 10 mg HS PO Last administered on 06/16/17 21: 47; Admin Dose 10 MG; Start 06/13/17 at 21:00; Status Future Hold Levothyroxine Sodium (Synthroid) 100 mcg DAILY PO Last administered on 09:35; Admin Dose 100 MCG; Start 06/14/17 at 09:00 Montelukast Sodium (Singulair) 10 mg QHS PO Last administered on 07/18/17 20: 23; Admin Dose 10 MG; Start 06/13/17 at 21:00 Insulin Glargine (Lantus) 10 unit DAILY@20 SC ; Start 06/14/17 at 20:00; Status Future Hold Diagnostic Test (Pha) (Accu-Chek) 1 XX Last administered on 06/24/17 02 :03; Admin Dose 1 EA; Start 06/15/17 at 02:00 Miscellaneous Information 1 ea NOTE XX ; Start 06/14/17 at 06:00 Glucose (Glutose) 15 gm Q15M PRN PO DECREASED GLUCOSE; Start 06/14/17 at 06:00 Glucose (Glutose) 22.5 gm Q15M PRN PO DECREASED GLUCOSE; Start 06/14/17 at 06: 00 Dextrose (D50w Syringe) 25 ml Q15M PRN IV DECREASED GLUCOSE Last administered on 06/17/17 04:41; Admin Dose 25 ML; Start 06/14/17 at 06:00 Dextrose (D50w Syringe) 50 ml Q15M PRN IV DECREASED GLUCOSE; Start 06/14/17 at 06:00 Glucagon (Glucagen) 1 mg Q15M PRN IM DECREASED GLUCOSE; Start 06/14/17 at 06: 00 Glucose (Glutose) 15 gm Q15M PRN BUCCAL DECREASED GLUCOSE; Start 06/14/17 at 06:00 IV Flush (NS 10 ml) 10 ml PRN PRN IV IV PROTOCOL; Start 06/16/17 at 14:00 Haloperidol (Haldol) 1 mg Q12 PRN IV agitation Last administered on 06/16/17 21:56; Admin Dose 1 MG; Start 06/16/17 at 20:30 Metoprolol Tartrate (Lopressor) 50 mg BID PO Last administered on 06/23/17 20 :02; Admin Dose 50 MG; Start 06/19/17 at 21:00; Status Future hold Diltiazem HCl (Cardizem) 60 mg Q8 GTB Last administered on 07/19/17 05:44; Admin Dose 60 MG; Start 06/23/17 at 14:00; Status Future hold Hydralazine HCl (Apresoline) 25 mg Q8 PO Last administered on 07/19/17 05:45 ; Admin Dose 25 MG; Start 06/30/17 at 14:00 Carvedilol (Coreg) 6.25 mg BID PO Last administered on 07/19/17 09:38; Admin Dose 6.25 MG; Start 07/02/17 at 21:00 Pantoprazole (Protonix Tab) 40 mg BID@,18 PO Last administered on 07/19/17 05:44; Admin Dose 40 MG; Start 07/02/17 at 18:00 Ferrous Sulfate (Ferrous Sulfate (Ec)) 325 mg DAILY PO Last administered on 09:36; Admin Dose 325 MG; Start 07/06/17 at 12:00 Nystatin (Nystatin Powder) 1 applic BID TOP Last administered on 07/19/17 09: 40; Admin Dose 1 APPLIC; Start 07/10/17 at 21:00 Triamcinolone Acetonide (Kenalog 0.025% Lotion) 1 applic BID TOP Last administered on 07/19/17 09:40; Admin Dose 1 APPLIC; Start 07/11/17 at 00:00 Diphenhydramine HCl (Benadryl) 50 mg Q6H PRN IV rash/itching Last administered on 07/11/17 05:43; Admin Dose 50 MG; Start 07/11/17 at 00:00 Calcium Carbonate (Oyster Shell Calcium) 1.25 gm BID PO Last administered on 09:35; Admin Dose 1.25 GM; Start 07/13/17 at 09:00 Sertraline HCl (Zoloft) 25 mg DAILY PO Last administered on 07/19/17 09:36; Admin Dose 25 MG; Start 07/15/17 at 09:00 Furosemide (Lasix) 20 mg DAILY@06 PO Last administered on 07/19/17 05:45; Admin Dose 20 MG; Start 07/19/17 at 06:00 Apixaban (Eliquis) 2.5 mg BID PO Last administered on 07/19/17 09:39; Admin Dose 2.5 MG; Start 07/18/17 at 21:00 LILIAN ABEBE MD Jul 19, 2017 10:47
[2017-07-19] MEDS ORDERED: NIFEdipine 10 MG CAP PO SCH (12:00)
--- NOTE | 2017-07-19 12:50 | CONS ---
Date/Time of Note Date/Time of Note DATE: 07/19/17 TIME: 12:50 Consult Date/Type/Reason Admit Date/Time Jun 14, 2017 at 09:27 Type of Consultation: Pulm Ordering Provider: SARAH VINCENT Subjective Patient remains stable this morning. No new events. Objective Vital Signs Date Time Temp Pulse Resp B/P Pulse Ox O2 Delivery O2 Flow Rate FiO2 07/19/17 12:26 98.9 75 24 121/58 100 07/19/17 10:45 30 07/19/17 08:30 2.0 07/18/17 21:53 BIPAP Intake and Output 07/18/17 07/18/17 07/19/17 15:00 23:00 07:00 Intake Total 550 ml Balance 550 ml Exam Exam PHYSICAL EXAMINATION GENERAL: Elderly lady comfortable at rest. No distress. VITAL SIGNS: see below. HEENT: Pupils equal, round, and reactive to light. CARDIAC: S1, S2, 1/6 systolic ejection murmur CHEST: Diminished air entry bilaterally. ABDOMEN: Mildly distended. Bowel sounds present no guarding or rebound EXTREMITIES: No cyanosis, clubbing edema +1 NEUROLOGIC: Generalized weakness Results/Medications Result Diagram: 07/17/17 0847 07/17/17 0847 Results 24 hrs Laboratory Tests Test 07/18/17 17:59 07/18/17 20:21 07/19/17 08:08 07/19/17 12:02 Bedside Glucose 85 91 72 82 Medications Current Medications Ondansetron HCl (Zofran Inj) 4 mg Q6H PRN IV NAUSEA AND/OR VOMITING Last administered on 06/27/17 21:40; Admin Dose 4 MG; Start 06/13/17 at 15:30 Acetaminophen (Tylenol Tab) 650 mg Q6H PRN PO PAIN LEVEL 1-3 OR FEVER Last administered on 06/24/17 16:33; Admin Dose 650 MG; Start 06/13/17 at 15:30 Docusate Sodium (Colace) 100 mg Q12H PRN PO CONSTIPATION; Start 06/13/17 at 15 :30 Magnesium Hydroxide (Milk Of Mag) 30 ml DAILY PRN PO CONSTIPATION Last administered on 07/02/17 08:51; Admin Dose 30 ML; Start 06/13/17 at 15:30 Hydralazine HCl (Apresoline) 10 mg Q6H PRN IV ELEVATED BLOOD PRESSURE Last administered on 06/25/17 08:43; Admin Dose 10 MG; Start 06/13/17 at 15:30 Nitroglycerin (Nitroglycerin (Sl Tab) 0.4 Mg) 1 tab Q5M PRN SL ANGINA; Start 06/13/17 at 15:30 Atorvastatin Calcium (Lipitor) 10 mg HS PO Last administered on 06/16/17 21: 47; Admin Dose 10 MG; Start 06/13/17 at 21:00; Status Future Hold Levothyroxine Sodium (Synthroid) 100 mcg DAILY PO Last administered on 09:35; Admin Dose 100 MCG; Start 06/14/17 at 09:00 Montelukast Sodium (Singulair) 10 mg QHS PO Last administered on 07/18/17 20: 23; Admin Dose 10 MG; Start 06/13/17 at 21:00 Insulin Glargine (Lantus) 10 unit DAILY@20 SC ; Start 06/14/17 at 20:00; Status Future Hold Diagnostic Test (Pha) (Accu-Chek) 1 ea 02 XX Last administered on 06/24/17 02 :03; Admin Dose 1 EA; Start 06/15/17 at 02:00 Miscellaneous Information 1 ea NOTE XX ; Start 06/14/17 at 06:00 Glucose (Glutose) 15 gm Q15M PRN PO DECREASED GLUCOSE; Start 06/14/17 at 06:00 Glucose (Glutose) 22.5 gm Q15M PRN PO DECREASED GLUCOSE; Start 06/14/17 at 06: 00 Dextrose (D50w Syringe) 25 ml Q15M PRN IV DECREASED GLUCOSE Last administered on 06/17/17 04:41; Admin Dose 25 ML; Start 06/14/17 at 06:00 Dextrose (D50w Syringe) 50 ml Q15M PRN IV DECREASED GLUCOSE; Start 06/14/17 at 06:00 Glucagon (Glucagen) 1 mg Q15M PRN IM DECREASED GLUCOSE; Start 06/14/17 at 06: 00 Glucose (Glutose) 15 gm Q15M PRN BUCCAL DECREASED GLUCOSE; Start 06/14/17 at 06:00 IV Flush (NS 10 ml) 10 ml PRN PRN IV IV PROTOCOL; Start 06/16/17 at 14:00 Haloperidol (Haldol) 1 mg Q12 PRN IV agitation Last administered on 06/16/17 21:56; Admin Dose 1 MG; Start 06/16/17 at 20:30 Metoprolol Tartrate (Lopressor) 50 mg BID PO Last administered on 06/23/17 20 :02; Admin Dose 50 MG; Start 06/19/17 at 21:00; Status Future hold Hydralazine HCl (Apresoline) 25 mg Q8 PO Last administered on 07/19/17 05:45 ; Admin Dose 25 MG; Start 06/30/17 at 14:00 Carvedilol (Coreg) 6.25 mg BID PO Last administered on 07/19/17 09:38; Admin Dose 6.25 MG; Start 07/02/17 at 21:00 Pantoprazole (Protonix Tab) 40 mg BID@06,18 PO Last administered on 07/19/17 05:44; Admin Dose 40 MG; Start 07/02/17 at 18:00 Ferrous Sulfate (Ferrous Sulfate (Ec)) 325 mg DAILY PO Last administered on 09:36; Admin Dose 325 MG; Start 07/06/17 at 12:00 Nystatin (Nystatin Powder) 1 applic BID TOP Last administered on 07/19/17 09: 40; Admin Dose 1 APPLIC; Start 07/10/17 at 21:00 Triamcinolone Acetonide (Kenalog 0.025% Lotion) 1 applic BID TOP Last administered on 07/19/17 09:40; Admin Dose 1 APPLIC; Start 07/11/17 at 00:00 Diphenhydramine HCl (Benadryl) 50 mg Q6H PRN IV rash/itching Last administered on 07/11/17 05:43; Admin Dose 50 MG; Start 07/11/17 at 00:00 Calcium Carbonate (Oyster Shell Calcium) 1.25 gm BID PO Last administered on 09:35; Admin Dose 1.25 GM; Start 07/13/17 at 09:00 Sertraline HCl (Zoloft) 25 mg DAILY PO Last administered on 07/19/17 09:36; Admin Dose 25 MG; Start 07/15/17 at 09:00 Furosemide (Lasix) 20 mg DAILY@06 PO Last administered on 07/19/17 05:45; Admin Dose 20 MG; Start 07/19/17 at 06:00 Apixaban (Eliquis) 2.5 mg BID PO Last administered on 07/19/17 09:39; Admin Dose 2.5 MG; Start 07/18/17 at 21:00 Nifedipine (Procardia) 20 mg Q6 PO ; Start 07/19/17 at 12:00 Assessment/Plan Chief Complaint/Hosp Course IMP: 1. s/p Acute hypercapnic respiratory failure 2. HTN 3. Atrial fibrillation 4. Diabetes mellitus. 5. Status post shock. 6. Renal insufficiency. RECS: 1. Continue BiPAP at night and as needed. 2. Rate control per cardiology. 3. Avoid sedation 4. Deep venous thrombosis and gastrointestinal prophylaxis. 5. Aspiration precautions. 6. PT/OT/OOB DC planning. Okay from primary standpoint Problems: YAZMIN VARGAS MD, [facility] Jul 19, 2017 12:50
[2017-07-19 14:33] LABS: BASOPHILS % 0.6 % (0.0-2.0); EOSINOPHILS # 0.7 10^3/ul (0.0-0.5); EOSINOPHILS % 10.3 % (0.0-7.0); HEMATOCRIT 31.5 % (37.0-47.0); HEMOGLOBIN 9.9 g/dl (12.0-16.0); LYMPHOCYTES # 1.8 10^3/ul (0.8-2.9); MEAN CORPUSCULAR HEMOGLOBIN 29.6 pg (29.0-33.0); MEAN CORPUSCULAR HGB CONC 31.4 g/dl (32.0-37.0); MONOCYTE # 0.7 10^3/ul (0.3-0.9); MONOCYTES % 10.1 % (0.0-11.0); NEUTROPHIL # 3.9 10^3/ul (1.6-7.5); NEUTROPHILS % 53.6 % (39.0-77.0); PLATELET COUNT 183 10^3/UL (140-415); RED BLOOD COUNT 3.35 10^6/ul (4.20-5.40); RED CELL DISTRIBUTION WIDTH 14.8 % (11.5-14.5); WHITE BLOOD COUNT 7.2 10^3/ul (4.8-10.8)
[2017-07-19 14:42] LABS: AADO2 Arterial 83.7 mmHg (7.0-24.0); Allen Test ACCEPTAB; Arterial Base Excess 9.2 mmol/L (-3.0-3); Arterial COHb 0.3 % (0.0-3.0); Arterial Fraction of Oxyhgb 96.1 % (93.0-99.0); Arterial HCO3 33.3 mmol/L (22.0-26.0); Arterial MetHb 0 % (0.0-1.5); Arterial Total Hemglobin 11.4 g/dl (12.0-18.0); Blood Gas IEPAP 22/8; Blood Gas PS 14; MODE MASK - BIPAP
--- NOTE | 2017-07-19 14:42 | QN ---
Documentation Comment DISTRICT CAPTAIN called on patient secondary to syncopal episode and arrived towards end. Patient given dose of Procardia around 1300 and was unresponsive around 1408 with SBP 71 and HR 48. Sugars 125 and Placed back on BIPAP. IVF NS 500 cc bolus given. Patient BP improved with MAP >65 but HR remained 55. Patient did not have any complaints and was curious as to why so many people were in the room. Patient family at bedside and states believes Procardia is a new medication. CBC, CMP, Mg, and ABG obtained. CBC stable and Cr appears slightly above baseline. ABG noted. Spoke with family at bedside as well. >30mins of critical care time was spent with patient and family during [facility]TAIN KAMLESH TREADWELL MD Jul 19, 2017 14:42
[2017-07-19 14:52] LABS: CALCIUM 8.7 mg/dl (8.4-10.2); CREATININE 1.4 mg/dl (0.44-1.00); MAGNESIUM 1.9 mg/dl (1.7-2.5); POTASSIUM 4.4 mmol/L (3.5-5.1)
[2017-07-19] MEDS ORDERED: SOD CHLORIDE 0.9% 500 ML IV ONE (15:00)
--- NOTE | 2017-07-19 16:49 | PN ---
DATE: 07/19/2017 SUBJECTIVE: Followup on acute hypoxic hypercarbic respiratory failure, hypertension, atrial fibrillation, and diabetes. The patient is breathing comfortably at rest, does get short of breath with mild activity. The patient is on BiPAP at night and also is requesting BiPAP on p.r.n. basis during daytime. Denies any chest pain. No reported bleeding from any site, no reported fever or chills, no reported abdominal pain or vomiting or diarrhea. OBJECTIVE: GENERAL: The patient is conscious, awake, alert. VITAL SIGNS: Temperature 99, pulse 81, respirations 22, blood pressure 160/77, O2 saturation 99% on 2 liters nasal cannula. HEENT: Conjunctivae and lids are normal. Oropharynx clear. NECK: Supple. No mass, no thyromegaly. CHEST: Revealed diminished air entry at bases. No use of accessory muscles. CARDIOVASCULAR: Irregularly irregular rhythm. Variable S1. No murmur. ABDOMEN: Soft, nondistended, nontender. Bowel sounds present. EXTREMITIES: Trace edema. No clubbing, no cyanosis. SKIN: Without acute rash. The patient does have vitiligo. NEUROLOGIC: The patient is awake, alert, follows simple commands. LABORATORY DATA: Glucose 72. Sodium 138, potassium 4.1, BUN 17, creatinine 1.3. WBC 6.3, hemoglobin 9.6, platelet 166. ASSESSMENT AND PLAN: 1. Acute hypoxemic and hypercarbic respiratory failure. Continue BiPAP at night and on p.r.n. basis during daytime. 2. Decompensated congestive diastolic heart failure. Continue Lasix. 3. Hypertension. The patient is currently on carvedilol, hydralazine, and diltiazem. I spoke with Dr. Payne who will be adjusting her antihypertensive medication. 4. Atrial fibrillation. Heart rate within reasonable control. Continue Eliquis for cerebrovascular prophylaxis. 5. Depression, stable with Zoloft. 6. Diabetes. The patient is on sliding scale insulin. Lantus was discontinued due to low normal blood sugars. The patient's hemoglobin A1c is 5.3. Plan of care discussed with patient's daughter. We will obtain followup labs. Dictated By: MATTHEW CONTEH/TAZ Conf#: [id number] DID#: [id number] MTDD
[2017-07-19] MEDS: MONTELUKAST 10 MG TAB PO SCH (21:04)
[2017-07-20] VITALS (18 sets, daily range): BP systolic 124–173; BP diastolic 76–93; PULSE 65–117; RESP 20–22
[2017-07-20] MEDS: ACCU-CHEK XX SCH (02:00)
[2017-07-20] MEDS: PANTOPRAZOLE (EC) 40 MG TAB PO SCH ×2 (06:04→19:06)
[2017-07-20] MEDS: FUROSEMIDE 20 MG TAB PO SCH (06:04)
[2017-07-20] MEDS: INSULIN ASPART [NOVOLOG] 3 ML PEN SC SCH ×4 (07:25→21:00)
[2017-07-20 08:03] LABS: CALCIUM 8.7 mg/dl (8.4-10.2); CREATININE 1.32 mg/dl (0.44-1.00)
--- NOTE | 2017-07-20 08:53 | CONS ---
Date/Time of Note Date/Time of Note DATE: 07/20/17 TIME: 08:51 Assessment/Plan Assessment/Plan Additional Assessment/Plan 1.Hypertension - NL EF by echo this admit - now BP high - Con't to adjust Rx as needed. Pt was given Pricardia low dose yesturday, had episode of hypotension - did not tolerate - will hold off now. Stable overall- BiPAP overnight. 2. AF with RVR- prior pauses with BB, all estrella agents were held- now again tolerating coreg/dilt with good heart rates and no sig eren or pause - RATE CONTROLLED NOW. No Class I indication for pacer now. 3. Renal failure-ongoing but slowly improving - stable. 4. Hypercarbic resp failure s/p extubation-improved with BIPAP when sleeping as necessary - PULMONARY TEAM FOLLOWS. 5. Hypothyroid - Rx as needed. 6. PLeural effusion-s/p thoracentesis - improved SOB - stable. 7. Anemia-a/p transfusion with ? transfusion reaction Consultation Date/Type/Reason Admit Date/Time Jun 14, 2017 at 09:27 Type of Consultation: Pulm Referring Provider: SARAH VINCENT 24 HR Interval Summary Free Text/Dictation Pt was given Pricardia low dose yesturday, had episode of hypotension - did not tolerate - will hold off now. Stable overall- BiPAP overnight. ROS: No fever, no chills, no nausea, no vomiting, no diarrhea/constipation No recent weight changes No chest pain, no PND, no orthopnea +{ SOB/ chronic No dizziness, blurred vision No thirst, no heat or cold intolerance Exam/Review of Systems Vital Signs Vitals Vital Signs Date Time Temp Pulse Resp B/P Pulse Ox O2 Delivery O2 Flow Rate FiO2 07/20/17 08:43 95 07/20/17 08:13 100.3 22 173/93 99 07/20/17 07:20 30 07/19/17 19:35 2.0 07/19/17 08:00 Nasal Cannula Intake and Output 07/19/17 07/19/17 07/20/17 15:00 23:00 07:00 Intake Total 1500 ml 400 ml Balance 1500 ml 400 ml Exam General: WN/WD/NAD, AOx 2-3 HEENT: Unicetric/atraumatic/EOMI (follow commands) NECK: JVD elevated, no thyromegaly, BiP AP on Lymph: no lymphadenopathy HEART: regular with no S3, II/ systolic murmur at apex LUNGS: Coarse sounds ABD: soft, NT, ND, +BS : Intact Neuro: non focal SKIN: chronic changes EXT: trace edema Results Result Diagram: 07/19/17 1420 07/20/17 0703 Results 24 hrs Laboratory Tests Test 07/19/17 12:02 07/19/17 14:12 07/19/17 14:20 07/19/17 14:30 Bedside Glucose 82 125 White Blood Count 7.2 Red Blood Count 3.35 L Hemoglobin 9.9 L Hematocrit 31.5 L Mean Corpuscular Volume 94.0 Mean Corpuscular Hemoglobin 29.6 Mean Corpuscular Hemoglobin Concent 31.4 L Red Cell Distribution Width 14.8 H Platelet Count 183 Mean Platelet Volume 10.0 Neutrophils % 53.6 Lymphocytes % 25.0 Monocytes % 10.1 Eosinophils % 10.3 H Basophils % 0.6 Nucleated Red Blood Cells % 0.0 Neutrophils # 3.9 Lymphocytes # 1.8 Monocytes # 0.7 Eosinophils # 0.7 H Basophils # 0.0 Nucleated Red Blood Cells # 0.0 Sodium Level 138 Potassium Level 4.4 Chloride Level 97 Carbon Dioxide Level 33 H Anion Gap 12 Blood Urea Nitrogen 16 Creatinine 1.40 H Glucose Level 121 Calcium Level 8.7 Magnesium Level 1.9 Blood Gas Specimen Source Blood arterial Arterial Blood Date Drawn 07/19/2017 2:30:00 PM Arterial Blood pH (Temp corrected) 7.503 H Arterial Blood pCO2 (Temp correct) 43.4 Arterial Blood pO2 (Temp corrected) 79.2 L Arterial Blood HCO3 33.3 H Arterial Blood Base Excess 9.2 H Arterial Blood Oxygen Saturation 96.4 Carlton Test ACCEPTAB Arterial Blood Gas Puncture Site Right Radial Arterial Blood Carboxyhemoglobin 0.3 Arterial Blood Methemoglobin 0 Blood Gas A-a O2 Differential 83.7 H Oxyhemoglobin Percent 96.1 Total Hemoglobin 11.4 L Blood Gas Temperature 37.0 Blood Gas Respiration Rate 22.0 Blood Gas Actual Respiration Rate 23 Blood Gas Modality MASK - BIPAP FiO2 30.0 Blood Gas Pressure Support 14 Blood Gas IPAP/EPAP Ratio 22/8 Blood Gas Notified Whom DT Blood Gas Notified Time 07/19/2017 2:42:12 PM Test 07/19/17 17:31 07/19/17 20:48 07/20/17 02:06 07/20/17 07:03 Bedside Glucose 136 139 78 Sodium Level 137 Potassium Level 4.0 Chloride Level 96 L Carbon Dioxide Level 33 H Anion Gap 12 Blood Urea Nitrogen 16 Creatinine 1.32 H Glucose Level 73 # Calcium Level 8.7 Test 07/20/17 07:51 Bedside Glucose 79 Medications Medications Current Medications Ondansetron HCl (Zofran Inj) 4 mg Q6H PRN IV NAUSEA AND/OR VOMITING Last administered on 06/27/17 21:40; Admin Dose 4 MG; Start 06/13/17 at 15:30 Acetaminophen (Tylenol Tab) 650 mg Q6H PRN PO PAIN LEVEL 1-3 OR FEVER Last administered on 06/24/17 16:33; Admin Dose 650 MG; Start 06/13/17 at 15:30 Docusate Sodium (Colace) 100 mg Q12H PRN PO CONSTIPATION; Start 06/13/17 at 15 :30 Magnesium Hydroxide (Milk Of Mag) 30 ml DAILY PRN PO CONSTIPATION Last administered on 07/02/17 08:51; Admin Dose 30 ML; Start 06/13/17 at 15:30 Hydralazine HCl (Apresoline) 10 mg Q6H PRN IV ELEVATED BLOOD PRESSURE Last administered on 06/25/17 08:43; Admin Dose 10 MG; Start 06/13/17 at 15:30 Nitroglycerin (Nitroglycerin (Sl Tab) 0.4 Mg) 1 tab Q5M PRN SL ANGINA; Start 06/13/17 at 15:30 Atorvastatin Calcium (Lipitor) 10 mg HS PO Last administered on 06/16/17 21: 47; Admin Dose 10 MG; Start 06/13/17 at 21:00; Status Future Hold Levothyroxine Sodium (Synthroid) 100 mcg DAILY PO Last administered on 09:35; Admin Dose 100 MCG; Start 06/14/17 at 09:00 Montelukast Sodium (Singulair) 10 mg QHS PO Last administered on 07/19/17 21: 04; Admin Dose 10 MG; Start 06/13/17 at 21:00 Insulin Glargine (Lantus) 10 unit DAILY@20 SC ; Start 06/14/17 at 20:00; Status Future Hold Diagnostic Test (Pha) (Accu-Chek) 1 ea 02 XX Last administered on 06/24/17 02 :03; Admin Dose 1 EA; Start 06/15/17 at 02:00 Miscellaneous Information 1 ea NOTE XX ; Start 06/14/17 at 06:00 Glucose (Glutose) 15 gm Q15M PRN PO DECREASED GLUCOSE; Start 06/14/17 at 06:00 Glucose (Glutose) 22.5 gm Q15M PRN PO DECREASED GLUCOSE; Start 06/14/17 at 06: 00 Dextrose (D50w Syringe) 25 ml Q15M PRN IV DECREASED GLUCOSE Last administered on 06/17/17 04:41; Admin Dose 25 ML; Start 06/14/17 at 06:00 Dextrose (D50w Syringe) 50 ml Q15M PRN IV DECREASED GLUCOSE; Start 06/14/17 at 06:00 Glucagon (Glucagen) 1 mg Q15M PRN IM DECREASED GLUCOSE; Start 06/14/17 at 06: 00 Glucose (Glutose) 15 gm Q15M PRN BUCCAL DECREASED GLUCOSE; Start 06/14/17 at 06:00 IV Flush (NS 10 ml) 10 ml PRN PRN IV IV PROTOCOL; Start 06/16/17 at 14:00 Haloperidol (Haldol) 1 mg Q12 PRN IV agitation Last administered on 06/16/17 21:56; Admin Dose 1 MG; Start 06/16/17 at 20:30 Metoprolol Tartrate (Lopressor) 50 mg BID PO Last administered on 06/23/17 20 :02; Admin Dose 50 MG; Start 06/19/17 at 21:00; Status Future hold Hydralazine HCl (Apresoline) 25 mg Q8 PO Last administered on 07/20/17 06:04 ; Admin Dose 25 MG; Start 06/30/17 at 14:00 Carvedilol (Coreg) 6.25 mg BID PO Last administered on 07/19/17 21:07; Admin Dose 6.25 MG; Start 07/02/17 at 21:00 Pantoprazole (Protonix Tab) 40 mg BID@,18 PO Last administered on 07/20/17 06:04; Admin Dose 40 MG; Start 07/02/17 at 18:00 Ferrous Sulfate (Ferrous Sulfate (Ec)) 325 mg DAILY PO Last administered on 09:36; Admin Dose 325 MG; Start 07/06/17 at 12:00 Nystatin (Nystatin Powder) 1 applic BID TOP Last administered on 07/19/17 21: 05; Admin Dose 1 APPLIC; Start 07/10/17 at 21:00 Triamcinolone Acetonide (Kenalog 0.025% Lotion) 1 applic BID TOP Last administered on 07/19/17 21:05; Admin Dose 1 APPLIC; Start 07/11/17 at 00:00 Diphenhydramine HCl (Benadryl) 50 mg Q6H PRN IV rash/itching Last administered on 07/11/17 05:43; Admin Dose 50 MG; Start 07/11/17 at 00:00 Calcium Carbonate (Oyster Shell Calcium) 1.25 gm BID PO Last administered on 21:04; Admin Dose 1.25 GM; Start 07/13/17 at 09:00 Sertraline HCl (Zoloft) 25 mg DAILY PO Last administered on 07/19/17 09:36; Admin Dose 25 MG; Start 07/15/17 at 09:00 Furosemide (Lasix) 20 mg DAILY@06 PO Last administered on 07/20/17 06:04; Admin Dose 20 MG; Start 07/19/17 at 06:00 Apixaban (Eliquis) 2.5 mg BID PO Last administered on 07/19/17 21:04; Admin Dose 2.5 MG; Start 07/18/17 at 21:00 Nifedipine (Procardia) 20 mg Q6 PO Last administered on 07/19/17 13:14; Admin Dose 20 MG; Start 07/19/17 at 12:00; Status Future LILIAN Luna MD Jul 20, 2017 08:53
[2017-07-20] MEDS: BALSAM PERU/CASTOR OIL 60 GM TUBE TOP SCH ×2 (09:00→21:25)
[2017-07-20] MEDS: ACETAMINOPHEN 325 MG TAB PO PRN (09:06)
[2017-07-20] MEDS: LEVOTHYROXINE 100 MCG TAB PO SCH (09:06)
[2017-07-20] MEDS: SERTRALINE 50 MG TAB PO SCH (09:07)
[2017-07-20] MEDS: CALCIUM CARBONATE 1.25 GM TAB PO SCH ×2 (09:07→21:24)
[2017-07-20] MEDS: APIXABAN 5 MG TABLET PO SCH ×2 (09:08→21:25)
[2017-07-20] MEDS: FERROUS SULFATE (EC) 325 MG TAB PO SCH (09:10)
[2017-07-20] MEDS: TRIAMCINOLONE ACET 0.025% 60 ML LOT TOP SCH ×2 (09:11→21:25)
[2017-07-20] MEDS: NYSTATIN 30 GM POWDER BTL TOP SCH ×2 (09:11→21:25)
--- NOTE | 2017-07-20 11:11 | CONS ---
Date/Time of Note Date/Time of Note DATE: 07/20/17 TIME: 11:10 Consult Date/Type/Reason Admit Date/Time Jun 14, 2017 at 09:27 Type of Consultation: Pulm Ordering Provider: SARAH VINCENT Subjective Rapid response yesterday for hypotension. Objective Vital Signs Date Time Temp Pulse Resp B/P Pulse Ox O2 Delivery O2 Flow Rate FiO2 07/20/17 08:43 95 07/20/17 08:13 100.3 22 173/93 99 07/20/17 07:20 30 07/19/17 19:35 2.0 07/19/17 08:00 Nasal Cannula Intake and Output 07/19/17 07/19/17 07/20/17 15:00 23:00 07:00 Intake Total 1500 ml 400 ml Balance 1500 ml 400 ml Exam PHYSICAL EXAMINATION GENERAL: Elderly lady comfortable at rest. No distress. VITAL SIGNS: see below. HEENT: Pupils equal, round, and reactive to light. CARDIAC: S1, S2, 1/6 systolic ejection murmur CHEST: Diminished air entry bilaterally. ABDOMEN: Mildly distended. Bowel sounds present no guarding or rebound EXTREMITIES: No cyanosis, clubbing edema +1 NEUROLOGIC: Generalized weakness Results/Medications Result Diagram: 07/19/17 1420 07/20/17 0703 Results 24 hrs Laboratory Tests Test 07/19/17 12:02 07/19/17 14:12 07/19/17 14:20 07/19/17 14:30 Bedside Glucose 82 125 White Blood Count 7.2 Red Blood Count 3.35 L Hemoglobin 9.9 L Hematocrit 31.5 L Mean Corpuscular Volume 94.0 Mean Corpuscular Hemoglobin 29.6 Mean Corpuscular Hemoglobin Concent 31.4 L Red Cell Distribution Width 14.8 H Platelet Count 183 Mean Platelet Volume 10.0 Neutrophils % 53.6 Lymphocytes % 25.0 Monocytes % 10.1 Eosinophils % 10.3 H Basophils % 0.6 Nucleated Red Blood Cells % 0.0 Neutrophils # 3.9 Lymphocytes # 1.8 Monocytes # 0.7 Eosinophils # 0.7 H Basophils # 0.0 Nucleated Red Blood Cells # 0.0 Sodium Level 138 Potassium Level 4.4 Chloride Level 97 Carbon Dioxide Level 33 H Anion Gap 12 Blood Urea Nitrogen 16 Creatinine 1.40 H Glucose Level 121 Calcium Level 8.7 Magnesium Level 1.9 Blood Gas Specimen Source Blood arterial Arterial Blood Date Drawn 07/19/2017 2:30:00 PM Arterial Blood pH (Temp corrected) 7.503 H Arterial Blood pCO2 (Temp correct) 43.4 Arterial Blood pO2 (Temp corrected) 79.2 L Arterial Blood HCO3 33.3 H Arterial Blood Base Excess 9.2 H Arterial Blood Oxygen Saturation 96.4 Carl[place] Test ACCEPTAB Arterial Blood Gas Puncture Site Right Radial Arterial Blood Carboxyhemoglobin 0.3 Arterial Blood Methemoglobin 0 Blood Gas A-a O2 Differential 83.7 H Oxyhemoglobin Percent 96.1 Total Hemoglobin 11.4 L Blood Gas Temperature 37.0 Blood Gas Respiration Rate 22.0 Blood Gas Actual Respiration Rate 23 Blood Gas Modality MASK - BIPAP FiO2 30.0 Blood Gas Pressure Support 14 Blood Gas IPAP/EPAP Ratio 25/03 Blood Gas Notified Whom DT Blood Gas Notified Time 07/19/2017 2:42:12 PM Test 07/19/17 17:31 07/19/17 20:48 07/20/17 02:06 07/20/17 07:03 Bedside Glucose 136 139 78 Sodium Level 137 Potassium Level 4.0 Chloride Level 96 L Carbon Dioxide Level 33 H Anion Gap 12 Blood Urea Nitrogen 16 Creatinine 1.32 H Glucose Level 73 # Calcium Level 8.7 Test 07/20/17 07:51 Bedside Glucose 79 Medications Current Medications Ondansetron HCl (Zofran Inj) 4 mg Q6H PRN IV NAUSEA AND/OR VOMITING Last administered on 06/27/17 21:40; Admin Dose 4 MG; Start 06/13/17 at 15:30 Acetaminophen (Tylenol Tab) 650 mg Q6H PRN PO PAIN LEVEL 1-3 OR FEVER Last administered on 07/20/17 09:06; Admin Dose 650 MG; Start 06/13/17 at 15:30 Docusate Sodium (Colace) 100 mg Q12H PRN PO CONSTIPATION; Start 06/13/17 at 15 :30 Magnesium Hydroxide (Milk Of Mag) 30 ml DAILY PRN PO CONSTIPATION Last administered on 07/02/17 08:51; Admin Dose 30 ML; Start 06/13/17 at 15:30 Hydralazine HCl (Apresoline) 10 mg Q6H PRN IV ELEVATED BLOOD PRESSURE Last administered on 06/25/17 08:43; Admin Dose 10 MG; Start 06/13/17 at 15:30 Nitroglycerin (Nitroglycerin (Sl Tab) 0.4 Mg) 1 tab Q5M PRN SL ANGINA; Start 06/13/17 at 15:30 Atorvastatin Calcium (Lipitor) 10 mg HS PO Last administered on 06/16/17 21: 47; Admin Dose 10 MG; Start 06/13/17 at 21:00; Status Future Hold Levothyroxine Sodium (Synthroid) 100 mcg DAILY PO Last administered on 09:06; Admin Dose 100 MCG; Start 06/14/17 at 09:00 Montelukast Sodium (Singulair) 10 mg QHS PO Last administered on 07/19/17 21: 04; Admin Dose 10 MG; Start 06/13/17 at 21:00 Insulin Glargine (Lantus) 10 unit DAILY@20 SC ; Start 06/14/17 at 20:00; Status Future Hold Diagnostic Test (Pha) (Accu-Chek) 1 ea 02 XX Last administered on 06/24/17 02 :03; Admin Dose 1 EA; Start 06/15/17 at 02:00 Miscellaneous Information 1 ea NOTE XX ; Start 06/14/17 at 06:00 Glucose (Glutose) 15 gm Q15M PRN PO DECREASED GLUCOSE; Start 06/14/17 at 06:00 Glucose (Glutose) 22.5 gm Q15M PRN PO DECREASED GLUCOSE; Start 06/14/17 at 06: 00 Dextrose (D50w Syringe) 25 ml Q15M PRN IV DECREASED GLUCOSE Last administered on 06/17/17 04:41; Admin Dose 25 ML; Start 06/14/17 at 06:00 Dextrose (D50w Syringe) 50 ml Q15M PRN IV DECREASED GLUCOSE; Start 06/14/17 at 06:00 Glucagon (Glucagen) 1 mg Q15M PRN IM DECREASED GLUCOSE; Start 06/14/17 at 06: 00 Glucose (Glutose) 15 gm Q15M PRN BUCCAL DECREASED GLUCOSE; Start 06/14/17 at 06:00 IV Flush (NS 10 ml) 10 ml PRN PRN IV IV PROTOCOL; Start 06/16/17 at 14:00 Haloperidol (Haldol) 1 mg Q12 PRN IV agitation Last administered on 06/16/17 21:56; Admin Dose 1 MG; Start 06/16/17 at 20:30 Metoprolol Tartrate (Lopressor) 50 mg BID PO Last administered on 06/23/17 20 :02; Admin Dose 50 MG; Start 06/19/17 at 21:00; Status Future hold Hydralazine HCl (Apresoline) 25 mg Q8 PO Last administered on 07/20/17 06:04 ; Admin Dose 25 MG; Start 06/30/17 at 14:00 Carvedilol (Coreg) 6.25 mg BID PO Last administered on 07/20/17 09:10; Admin Dose 6.25 MG; Start 07/02/17 at 21:00 Pantoprazole (Protonix Tab) 40 mg BID@ PO Last administered on 07/20/17 06:04; Admin Dose 40 MG; Start 07/02/17 at 18:00 Ferrous Sulfate (Ferrous Sulfate (Ec)) 325 mg DAILY PO Last administered on 09:10; Admin Dose 325 MG; Start 07/06/17 at 12:00 Nystatin (Nystatin Powder) 1 applic BID TOP Last administered on 07/20/17 09: 11; Admin Dose 1 APPLIC; Start 07/10/17 at 21:00 Triamcinolone Acetonide (Kenalog 0.025% Lotion) 1 applic BID TOP Last administered on 07/20/17 09:11; Admin Dose 1 APPLIC; Start 07/11/17 at 00:00 Diphenhydramine HCl (Benadryl) 50 mg Q6H PRN IV rash/itching Last administered on 07/11/17 05:43; Admin Dose 50 MG; Start 07/11/17 at 00:00 Calcium Carbonate (Oyster Shell Calcium) 1.25 gm BID PO Last administered on 09:07; Admin Dose 1.25 GM; Start 07/13/17 at 09:00 Sertraline HCl (Zoloft) 25 mg DAILY PO Last administered on 07/20/17 09:07; Admin Dose 25 MG; Start 07/15/17 at 09:00 Furosemide (Lasix) 20 mg DAILY@06 PO Last administered on 07/20/17 06:04; Admin Dose 20 MG; Start 07/19/17 at 06:00 Apixaban (Eliquis) 2.5 mg BID PO Last administered on 07/20/17 09:08; Admin Dose 2.5 MG; Start 07/18/17 at 21:00 Nifedipine (Procardia) 20 mg Q6 PO Last administered on 07/19/17 13:14; Admin Dose 20 MG; Start 07/19/17 at 12:00; Status Future Hold Assessment/Plan Chief Complaint/Hosp Course IMP: 1. s/p Acute hypercapnic respiratory failure 2. HTN 3. Atrial fibrillation 4. Diabetes mellitus. 5. Status post shock. Transient hypotension possibly volume depletion. 6. Renal insufficiency. RECS: 1. Continue BiPAP at night and as needed. 2. Rate control per cardiology. 3. Avoid sedation 4. Deep venous thrombosis and gastrointestinal prophylaxis. 5. Aspiration precautions. 6. PT/OT/OOB Problems: YAZMIN VARGAS MD, [facility] Jul 20, 2017 11:11
[2017-07-20] MEDS ORDERED: LEVALBUTEROL (NEB) 0.63 MG/3 ML AMP HHN PRN (11:30)
--- NOTE | 2017-07-20 15:17 | PN ---
DATE: 07/20/2017 FOLLOWUP AND INTERVAL HISTORY: The patient yesterday had STAVE BOLT EQUALIZER secondary to a syncopal episode. The patient had received Procardia around 13:00 and was unresponsive around 14:08 with systolic BP of 71 , heart rate of 48. The patient was placed back on BiPAP and was given IV fluid bolus. Nifedipine has been discontinued. The patient did have low-grade temperature this morning. Her white count is normal. The patient did not have any bleeding from any site. The patient continues to require int ermittent BiPAP during daytime; however, at night, she is on scheduled BiPAP support. The patient r emains awake, alert today and is breathing comfortably. Denies any chest pain or abdominal pain. PHYSICAL EXAMINATION: GENERAL: The patient is conscious, awake, alert. VITAL SIGNS: Temperature 100.3, pulse 95, respirations 22, blood pressure 173/90, O2 saturation 99% on supplemental O2. HEENT: No eye discharge or redness. Oropharynx clear. NECK: No mass. CHEST: Revealed diminished air entry at bases. No use of accessory muscles. CARDIOVASCULAR: Irregularly irregular rhythm. Variable S1. No murmur. ABDOMEN: Soft, nondistended, nontender. EXTREMITIES: No edema. Pedal pulses palpable. SKIN: Without acute rash. NEUROLOGIC: The patient is awake, alert, follows simple commands and has no focal weakness. LABORATORY DATA: WBC 7.2, hemoglobin 9.9, platelets 183. Sodium 137, potassium 4, BUN 16, creatini ne 1.3, glucose 79, calcium 8.7. IMPRESSION: 1. Hypoxic hypercapnic respiratory failure. Continue BiPAP at night and on p.r.n. basis during day time. 2. Diastolic heart failure. Continue Lasix. 3. Hypertension. Blood pressure is being managed by Dr. Payne. The patient is currently on carve dilol, hydralazine and Lasix. 4. Chronic atrial fibrillation, heart rate currently stable. Continue Eliquis for CVA prophylaxis. 5. 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 Will hold off on antibiotic at this time, since there is only one reading of a temperature of 100.3. Plan of care discussed with the patient's daughter. Dictated By: MATTHEW CONTEH/TAZ Conf#: [id number] DID#: [id number] CC: SARAH VINCENT MD;*End*
[2017-07-20] MEDS: MONTELUKAST 10 MG TAB PO SCH (21:23)
[2017-07-21] VITALS (20 sets, daily range): BP systolic 157–186; BP diastolic 64–93; PULSE 69–114; RESP 18–24
[2017-07-21] MEDS: ACCU-CHEK XX SCH (02:00)
[2017-07-21] MEDS: FUROSEMIDE 20 MG TAB PO SCH (05:53)
[2017-07-21] MEDS: PANTOPRAZOLE (EC) 40 MG TAB PO SCH ×2 (05:54→17:14)
[2017-07-21] MEDS: INSULIN ASPART [NOVOLOG] 3 ML PEN SC SCH ×4 (07:25→21:00)
[2017-07-21 07:51] LABS: BASOPHILS % 0.6 % (0.0-2.0); EOSINOPHILS # 0.6 10^3/ul (0.0-0.5); HEMOGLOBIN 9.9 g/dl (12.0-16.0); LYMPHOCYTES # 1.5 10^3/ul (0.8-2.9); LYMPHOCYTES % 21.8 % (15.0-51.0); MEAN CORPUSCULAR HEMOGLOBIN 29.5 pg (29.0-33.0); MEAN CORPUSCULAR HGB CONC 31.9 g/dl (32.0-37.0); MEAN CORPUSCULAR VOLUME 92.3 fl (82.0-101.0); MEAN PLATELET VOLUME 9.9 fl (7.4-10.4); MONOCYTE # 0.7 10^3/ul (0.3-0.9); MONOCYTES % 9.5 % (0.0-11.0); NEUTROPHIL # 4.1 10^3/ul (1.6-7.5); NEUTROPHILS % 58.8 % (39.0-77.0); PLATELET COUNT 195 10^3/UL (140-415); RED BLOOD COUNT 3.36 10^6/ul (4.20-5.40); RED CELL DISTRIBUTION WIDTH 14.8 % (11.5-14.5)
[2017-07-21 08:23] LABS: CALCIUM 9.1 mg/dl (8.4-10.2); CREATININE 1.32 mg/dl (0.44-1.00); POTASSIUM 3.8 mmol/L (3.5-5.1)
[2017-07-21] MEDS: LEVOTHYROXINE 100 MCG TAB PO SCH (08:54)
[2017-07-21] MEDS: SERTRALINE 50 MG TAB PO SCH (08:54)
[2017-07-21] MEDS: FERROUS SULFATE (EC) 325 MG TAB PO SCH (08:54)
[2017-07-21] MEDS: CALCIUM CARBONATE 1.25 GM TAB PO SCH ×2 (08:54→20:51)
--- NOTE | 2017-07-21 08:54 | PDOCDIS ---
Discharge Instructions DIAGNOSIS Discharge Diagnosis acute respiratory failulre/Hypoventilation Syndrome/Hypercapnia Atrial fibrillation/CHF/CAD/HTN Acute on Chronic kidney disease CONDITION Patient Condition: Good HOME CARE INSTRUCTIONS: Special Diet: MECH SOFT ACTIVITY: Activity Restrictions: Slowly Increase Activity FOLLOW UP/APPOINTMENTS Follow-up Plan Follow up with Dr. Cordelia Higgins. 07/24 as scheduled; follow up with Dr. Martinez and Dr. García per their requests MORGAN SNOW MD- Jul 21, 2017 08:54
[2017-07-21] MEDS: APIXABAN 5 MG TABLET PO SCH ×2 (08:55→20:51)
[2017-07-21] MEDS ORDERED: CARV6.2579 PO (09:01)
[2017-07-21] MEDS ORDERED: APIX5TAB PO (09:01)
[2017-07-21] MEDS ORDERED: DOCU-216 PO (09:01)
[2017-07-21] MEDS ORDERED: PANT40TA4 PO (09:01)
[2017-07-21] MEDS ORDERED: BALS60OI TOP (09:01)
[2017-07-21] MEDS ORDERED: HYDR-3672 PO (09:01)
[2017-07-21] MEDS ORDERED: NYST15PO4 TOP (09:01)
[2017-07-21] MEDS ORDERED: ATOR10TA65 PO (09:01)
[2017-07-21] MEDS ORDERED: SERT50TA6 PO (09:01)
[2017-07-21] MEDS: TRIAMCINOLONE ACET 0.025% 60 ML LOT TOP SCH ×2 (09:04→20:52)
[2017-07-21] MEDS: BALSAM PERU/CASTOR OIL 60 GM TUBE TOP SCH ×2 (09:05→20:52)
[2017-07-21] MEDS: NYSTATIN 30 GM POWDER BTL TOP SCH ×2 (09:05→20:52)
--- NOTE | 2017-07-21 10:07 | PN ---
DATE: 07/21/2017 SUBJECTIVE: The patient is without complaint. OBJECTIVE: VITAL SIGNS: Temperature 98.9, pulse 87, was as high as 114 earlier, blood pressure 179/86, oxygen saturation 97% on FIO2 30%. GENERAL: Well-developed, well-nourished female in no acute distress, lying in bed. CHEST: Clear to auscultation bilaterally except for decreased breath sounds, bilateral bases. HEART: Irregularly irregular. ABDOMEN: Soft, nontender. EXTREMITIES: No cyanosis, clubbing. There is trace bilateral lower extremity edema. NEUROLOGIC: Nonfocal. LABORATORY EXAMINATION: Pending at the time of this dictation. ASSESSMENT AND PLAN 1. Acute respiratory failure with hypercapnia secondary to hypoventilation syndrome/hypoxemia. Pat ient remains stable on BiPAP overnight and oxygen via nasal cannula when off BiPAP. Will continue w ith this, and the patient has oxygen and BiPAP at home set up after discharge. 2. Atrial fibrillation, remains stable with periodic spikes but will continue with current medicati ons with the carvedilol and diltiazem. 3. Hypertension/coronary artery disease, stable. Continue with current medications. No further hy potensive events since receiving Procardia on Friday. 4. Voujs-gz-nxeetzx renal insufficiency, stable. Continue to monitor. 5. Diabetes, stable. Continue with diet. No need for medications. 6. Anemia. Stable, status post transfusion in the past. No acute blood loss and no need for furth er transfusions. 7. Hypothyroidism, stable. Continue with meds. 8. Discharge planning: Continue to await for equipment to be sent home. Patient is still awaiting a hospital bed, and if this arrives today, patient will be stable for discharge home. Dictated By: MORGAN SNOW MD SR/NTS Conf#: [id number] DID#: [id number] CC: SARAH VINCENT MD;*End*
--- NOTE | 2017-07-21 11:47 | CONS ---
Date/Time of Note Date/Time of Note DATE: 07/21/17 TIME: 11:45 Assessment/Plan Assessment/Plan Additional Assessment/Plan Assessment and recommendations; 1. Patient admitted with hypercapnic respiratory failure doing very well now. 2. Chronic atrial fibrillation. 3. Mild CHF. 4. History of hypothyroidism. 5. History of hypertension. Continue current treatment. Consider discharge. Consultation Date/Type/Reason Admit Date/Time Jun 14, 2017 at 09:27 Type of Consultation: Pulm Referring Provider: SARAH VINCENT 24 HR Interval Summary Free Text/Dictation Patient's condition is stable. Remains completely awake and alert. Denies any shortness of breath. General exam; elderly woman, awake, currently in no distress. Exam/Review of Systems Vital Signs Vitals Vital Signs Date Time Temp Pulse Resp B/P Pulse Ox O2 Delivery O2 Flow Rate FiO2 07/21/17 11:06 84 98 30 07/21/17 08:05 98.6 20 182/92 07/20/17 21:34 2.0 07/19/17 08:00 Nasal Cannula Intake and Output 07/20/17 07/20/17 07/21/17 15:00 23:00 07:00 Intake Total 800 ml 400 ml Balance 800 ml 400 ml Exam HEENT exam; supple neck, no JVD. No lymphadenopathy. Midline trachea. No thyromegaly. Pharynx is clear. Pupils are small bilaterally. Chest exam; clear to auscultation. S1-S2 audible, no murmurs. Irregular rhythm. Abdomen exam; soft, nontender. No organomegaly. Bowel sounds audible. Extremity exam; no edema. CREDIT REPRESENTATIVE exam; no focal motor deficit. Results Result Diagram: 07/21/17 0710 07/21/17 0710 Results 24 hrs Laboratory Tests Test 07/20/17 11:58 07/20/17 17:08 07/20/17 20:41 07/21/17 02:04 Bedside Glucose 85 100 87 79 Test 07/21/17 07:10 07/21/17 08:07 White Blood Count 7.0 Red Blood Count 3.36 L Hemoglobin 9.9 L Hematocrit 31.0 L Mean Corpuscular Volume 92.3 Mean Corpuscular Hemoglobin 29.5 Mean Corpuscular Hemoglobin Concent 31.9 L Red Cell Distribution Width 14.8 H Platelet Count 195 Mean Platelet Volume 9.9 Neutrophils % 58.8 Lymphocytes % 21.8 Monocytes % 9.5 Eosinophils % 9.0 H Basophils % 0.6 Nucleated Red Blood Cells % 0.0 Neutrophils # 4.1 Lymphocytes # 1.5 Monocytes # 0.7 Eosinophils # 0.6 H Basophils # 0.0 Nucleated Red Blood Cells # 0.0 Sodium Level 140 Potassium Level 3.8 Chloride Level 96 L Carbon Dioxide Level 36 H Anion Gap 12 Blood Urea Nitrogen 17 Creatinine 1.32 H Glucose Level 71 Calcium Level 9.1 Bedside Glucose 73 Medications Medications Current Medications Ondansetron HCl (Zofran Inj) 4 mg Q6H PRN IV NAUSEA AND/OR VOMITING Last administered on 06/27/17 21:40; Admin Dose 4 MG; Start 06/13/17 at 15:30 Acetaminophen (Tylenol Tab) 650 mg Q6H PRN PO PAIN LEVEL 1-3 OR FEVER Last administered on 07/20/17 09:06; Admin Dose 650 MG; Start 06/13/17 at 15:30 Docusate Sodium (Colace) 100 mg Q12H PRN PO CONSTIPATION; Start 06/13/17 at 15 :30 Magnesium Hydroxide (Milk Of Mag) 30 ml DAILY PRN PO CONSTIPATION Last administered on 07/02/17 08:51; Admin Dose 30 ML; Start 06/13/17 at 15:30 Hydralazine HCl (Apresoline) 10 mg Q6H PRN IV ELEVATED BLOOD PRESSURE Last administered on 06/25/17 08:43; Admin Dose 10 MG; Start 06/13/17 at 15:30 Nitroglycerin (Nitroglycerin (Sl Tab) 0.4 Mg) 1 tab Q5M PRN SL ANGINA; Start 06/13/17 at 15:30 Atorvastatin Calcium (Lipitor) 10 mg HS PO Last administered on 06/16/17 21: 47; Admin Dose 10 MG; Start 06/13/17 at 21:00; Status Future Hold Levothyroxine Sodium (Synthroid) 100 mcg DAILY PO Last administered on 08:54; Admin Dose 100 MCG; Start 06/14/17 at 09:00 Montelukast Sodium (Singulair) 10 mg QHS PO Last administered on 07/20/17 21: 23; Admin Dose 10 MG; Start 06/13/17 at 21:00 Insulin Glargine (Lantus) 10 unit DAILY@20 SC ; Start 06/14/17 at 20:00; Status Future Hold Diagnostic Test (Pha) (Accu-Chek) 1 ea 02 XX Last administered on 07/21/17 02 :00; Admin Dose 1 EA; Start 06/15/17 at 02:00 Miscellaneous Information 1 ea NOTE XX ; Start 06/14/17 at 06:00 Glucose (Glutose) 15 gm Q15M PRN PO DECREASED GLUCOSE; Start 06/14/17 at 06:00 Glucose (Glutose) 22.5 gm Q15M PRN PO DECREASED GLUCOSE; Start 06/14/17 at 06: 00 Dextrose (D50w Syringe) 25 ml Q15M PRN IV DECREASED GLUCOSE Last administered on 06/17/17 04:41; Admin Dose 25 ML; Start 06/14/17 at 06:00 Dextrose (D50w Syringe) 50 ml Q15M PRN IV DECREASED GLUCOSE; Start 06/14/17 at 06:00 Glucagon (Glucagen) 1 mg Q15M PRN IM DECREASED GLUCOSE; Start 06/14/17 at 06: 00 Glucose (Glutose) 15 gm Q15M PRN BUCCAL DECREASED GLUCOSE; Start 06/14/17 at 06:00 IV Flush (NS 10 ml) 10 ml PRN PRN IV IV PROTOCOL; Start 06/16/17 at 14:00 Haloperidol (Haldol) 1 mg Q12 PRN IV agitation Last administered on 06/16/17 21:56; Admin Dose 1 MG; Start 06/16/17 at 20:30 Metoprolol Tartrate (Lopressor) 50 mg BID PO Last administered on 06/23/17 20 :02; Admin Dose 50 MG; Start 06/19/17 at 21:00; Status Future hold Hydralazine HCl (Apresoline) 25 mg Q8 PO Last administered on 07/21/17 05:53 ; Admin Dose 25 MG; Start 06/30/17 at 14:00 Carvedilol (Coreg) 6.25 mg BID PO Last administered on 07/21/17 08:55; Admin Dose 6.25 MG; Start 07/02/17 at 21:00 Pantoprazole (Protonix Tab) 40 mg BID@18 PO Last administered on 07/21/17 05:54; Admin Dose 40 MG; Start 07/02/17 at 18:00 Ferrous Sulfate (Ferrous Sulfate (Ec)) 325 mg DAILY PO Last administered on 08:54; Admin Dose 325 MG; Start 07/06/17 at 12:00 Nystatin (Nystatin Powder) 1 applic BID TOP Last administered on 07/21/17 09: 05; Admin Dose 1 APPLIC; Start 07/10/17 at 21:00 Triamcinolone Acetonide (Kenalog 0.025% Lotion) 1 applic BID TOP Last administered on 07/21/17 09:04; Admin Dose 1 APPLIC; Start 07/11/17 at 00:00 Diphenhydramine HCl (Benadryl) 50 mg Q6H PRN IV rash/itching Last administered on 07/11/17 05:43; Admin Dose 50 MG; Start 07/11/17 at 00:00 Calcium Carbonate (Oyster Shell Calcium) 1.25 gm BID PO Last administered on 08:54; Admin Dose 1.25 GM; Start 07/13/17 at 09:00 Sertraline HCl (Zoloft) 25 mg DAILY PO Last administered on 07/21/17 08:54; Admin Dose 25 MG; Start 07/15/17 at 09:00 Furosemide (Lasix) 20 mg DAILY@06 PO Last administered on 07/21/17 05:53; Admin Dose 20 MG; Start 07/19/17 at 06:00 Apixaban (Eliquis) 2.5 mg BID PO Last administered on 07/21/17 08:55; Admin Dose 2.5 MG; Start 07/18/17 at 21:00 Nifedipine (Procardia) 20 mg Q6 PO Last administered on 07/19/17 13:14; Admin Dose 20 MG; Start 07/19/17 at 12:00; Status Future Hold EN BURNETTE Jul 21, 2017 11:47
--- NOTE | 2017-07-21 12:25 | CONS ---
Date/Time of Note Date/Time of Note DATE: 07/21/17 TIME: 12:22 Assessment/Plan Assessment/Plan Chief Complaint/Hosp Course IMP: 1.Hypotension-improved again with stable BP/NL EF by echo this admit 2. AF with RVR-yesterday apparently had pause 3 seconds and all estrella agents were held- now again tolerating coreg with reasonable heart rates and no sig eren or pause 3. Renal failure-ongoing but slowly improving 4. Hypercarbic resp failure s/p extubation-improved with BIPAP when sleeping as neceessary 5. Hypothyroid 6. PLeural effusion-s/p thoracentesis 7. Anemia-a/p transfusion Recc: -Tele -serial ecg's -Continue eliquis -Hold asa given anemia -Follow HR/BP/volume status closely -BB nd resume diliazem to assure good heart rate control -Continue hydralazine as well with labile BP but overall reasonable -PT/OT -Follow volume status closely and consider resumption of low dose daily po lasix -PRN BIPAP Problems: Consultation Date/Type/Reason Admit Date/Time Jun 14, 2017 at 09:27 Initial Consult Date 06/15/17 Type of Consultation: cardiology Reason for Consultation AF Referring Provider: SARAH VINCENT Exam/Review of Systems Vital Signs Vitals Vital Signs Date Time Temp Pulse Resp B/P Pulse Ox O2 Delivery O2 Flow Rate FiO2 07/21/17 11:06 84 98 30 07/21/17 08:05 98.6 20 182/92 07/20/17 21:34 2.0 07/19/17 08:00 Nasal Cannula Intake and Output 07/20/17 07/20/17 07/21/17 15:00 23:00 07:00 Intake Total 800 ml 400 ml Balance 800 ml 400 ml Exam Review of Systems: CONSTITUTIONAL: No fevers, chills. PULMONARY: No sob CARDIOVASCULAR: No chest pain/palpitations GASTROINTESTINAL: No nausea/vomiting. GENITOURINARY: No hematuria/dysuria. MUSCULOSKELETAL: No myagias/arthalgias. PSYCHIATRIC: The patient denies depression. NEUROLOGIC: No weakness Constitutional: alert, oriented Psych: no complaints Head: normocephalic ENMT: mucosa pink and moist Neck: jvd, supple Respiratory: other (upper airway rhochi) Cardiovascular: irregular rhythm Gastrointestinal: non-tender, soft Musculoskeletal: muscle tone (normal) Extremities: pitting pedal edema (trace/B) Results Result Diagram: 07/21/17 0710 07/21/17 0710 Results 24 hrs Laboratory Tests Test 07/20/17 17:08 07/20/17 20:41 07/21/17 02:04 07/21/17 07:10 Bedside Glucose 100 87 79 White Blood Count 7.0 Red Blood Count 3.36 L Hemoglobin 9.9 L Hematocrit 31.0 L Mean Corpuscular Volume 92.3 Mean Corpuscular Hemoglobin 29.5 Mean Corpuscular Hemoglobin Concent 31.9 L Red Cell Distribution Width 14.8 H Platelet Count 195 Mean Platelet Volume 9.9 Neutrophils % 58.8 Lymphocytes % 21.8 Monocytes % 9.5 Eosinophils % 9.0 H Basophils % 0.6 Nucleated Red Blood Cells % 0.0 Neutrophils # 4.1 Lymphocytes # 1.5 Monocytes # 0.7 Eosinophils # 0.6 H Basophils # 0.0 Nucleated Red Blood Cells # 0.0 Sodium Level 140 Potassium Level 3.8 Chloride Level 96 L Carbon Dioxide Level 36 H Anion Gap 12 Blood Urea Nitrogen 17 Creatinine 1.32 H Glucose Level 71 Calcium Level 9.1 Test 07/21/17 08:07 07/21/17 12:17 Bedside Glucose 73 76 Medications Medications Current Medications Ondansetron HCl (Zofran Inj) 4 mg Q6H PRN IV NAUSEA AND/OR VOMITING Last administered on 06/27/17 21:40; Admin Dose 4 MG; Start 06/13/17 at 15:30 Acetaminophen (Tylenol Tab) 650 mg Q6H PRN PO PAIN LEVEL 1-3 OR FEVER Last administered on 07/20/17 09:06; Admin Dose 650 MG; Start 06/13/17 at 15:30 Docusate Sodium (Colace) 100 mg Q12H PRN PO CONSTIPATION; Start 06/13/17 at 15 :30 Magnesium Hydroxide (Milk Of Mag) 30 ml DAILY PRN PO CONSTIPATION Last administered on 07/02/17 08:51; Admin Dose 30 ML; Start 06/13/17 at 15:30 Hydralazine HCl (Apresoline) 10 mg Q6H PRN IV ELEVATED BLOOD PRESSURE Last administered on 06/25/17 08:43; Admin Dose 10 MG; Start 06/13/17 at 15:30 Nitroglycerin (Nitroglycerin (Sl Tab) 0.4 Mg) 1 tab Q5M PRN SL ANGINA; Start 06/13/17 at 15:30 Atorvastatin Calcium (Lipitor) 10 mg HS PO Last administered on 06/16/17 21: 47; Admin Dose 10 MG; Start 06/13/17 at 21:00; Status Future Hold Levothyroxine Sodium (Synthroid) 100 mcg DAILY PO Last administered on 08:54; Admin Dose 100 MCG; Start 06/14/17 at 09:00 Montelukast Sodium (Singulair) 10 mg QHS PO Last administered on 07/20/17 21: 23; Admin Dose 10 MG; Start 06/13/17 at 21:00 Insulin Glargine (Lantus) 10 unit DAILY@20 SC ; Start 06/14/17 at 20:00; Status Future Hold Diagnostic Test (Pha) (Accu-Chek) 1 ea 02 XX Last administered on 07/21/17 02 :00; Admin Dose 1 EA; Start 06/15/17 at 02:00 Miscellaneous Information 1 ea NOTE XX ; Start 06/14/17 at 06:00 Glucose (Glutose) 15 gm Q15M PRN PO DECREASED GLUCOSE; Start 06/14/17 at 06:00 Glucose (Glutose) 22.5 gm Q15M PRN PO DECREASED GLUCOSE; Start 06/14/17 at 06: 00 Dextrose (D50w Syringe) 25 ml Q15M PRN IV DECREASED GLUCOSE Last administered on 06/17/17 04:41; Admin Dose 25 ML; Start 06/14/17 at 06:00 Dextrose (D50w Syringe) 50 ml Q15M PRN IV DECREASED GLUCOSE; Start 06/14/17 at 06:00 Glucagon (Glucagen) 1 mg Q15M PRN IM DECREASED GLUCOSE; Start 06/14/17 at 06: 00 Glucose (Glutose) 15 gm Q15M PRN BUCCAL DECREASED GLUCOSE; Start 06/14/17 at 06:00 IV Flush (NS 10 ml) 10 ml PRN PRN IV IV PROTOCOL; Start 06/16/17 at 14:00 Haloperidol (Haldol) 1 mg Q12 PRN IV agitation Last administered on 06/16/17 21:56; Admin Dose 1 MG; Start 06/16/17 at 20:30 Metoprolol Tartrate (Lopressor) 50 mg BID PO Last administered on 06/23/17 20 :02; Admin Dose 50 MG; Start 06/19/17 at 21:00; Status Future hold Hydralazine HCl (Apresoline) 25 mg Q8 PO Last administered on 07/21/17 05:53 ; Admin Dose 25 MG; Start 06/30/17 at 14:00 Carvedilol (Coreg) 6.25 mg BID PO Last administered on 07/21/17 08:55; Admin Dose 6.25 MG; Start 07/02/17 at 21:00 Pantoprazole (Protonix Tab) 40 mg BID@ PO Last administered on 07/21/17 05:54; Admin Dose 40 MG; Start 07/02/17 at 18:00 Ferrous Sulfate (Ferrous Sulfate (Ec)) 325 mg DAILY PO Last administered on 08:54; Admin Dose 325 MG; Start 07/06/17 at 12:00 Nystatin (Nystatin Powder) 1 applic BID TOP Last administered on 07/21/17 09: 05; Admin Dose 1 APPLIC; Start 07/10/17 at 21:00 Triamcinolone Acetonide (Kenalog 0.025% Lotion) 1 applic BID TOP Last administered on 07/21/17 09:04; Admin Dose 1 APPLIC; Start 07/11/17 at 00:00 Diphenhydramine HCl (Benadryl) 50 mg Q6H PRN IV rash/itching Last administered on 07/11/17 05:43; Admin Dose 50 MG; Start 07/11/17 at 00:00 Calcium Carbonate (Oyster Shell Calcium) 1.25 gm BID PO Last administered on 08:54; Admin Dose 1.25 GM; Start 07/13/17 at 09:00 Sertraline HCl (Zoloft) 25 mg DAILY PO Last administered on 07/21/17 08:54; Admin Dose 25 MG; Start 07/15/17 at 09:00 Furosemide (Lasix) 20 mg DAILY@06 PO Last administered on 07/21/17 05:53; Admin Dose 20 MG; Start 07/19/17 at 06:00 Apixaban (Eliquis) 2.5 mg BID PO Last administered on 07/21/17 08:55; Admin Dose 2.5 MG; Start 07/18/17 at 21:00 Nifedipine (Procardia) 20 mg Q6 PO Last administered on 07/19/17 13:14; Admin Dose 20 MG; Start 07/19/17 at 12:00; Status Future Hold WEN GOFF Jul 21, 2017 12:25
[2017-07-21] MEDS: DILTIAZEM 30 MG TAB PO SCH ×2 (14:03→21:02)
[2017-07-21] MEDS: MONTELUKAST 10 MG TAB PO SCH (20:52)
[2017-07-22] VITALS (15 sets, daily range): BP systolic 116–153; BP diastolic 62–82; PULSE 84–99; RESP 18
[2017-07-22] MEDS: ACCU-CHEK XX SCH (02:39)
[2017-07-22] MEDS: PANTOPRAZOLE (EC) 40 MG TAB PO SCH (06:30)
[2017-07-22] MEDS: FUROSEMIDE 20 MG TAB PO SCH (06:30)
[2017-07-22] MEDS: DILTIAZEM 30 MG TAB PO SCH ×2 (06:31→14:01)
[2017-07-22] MEDS: INSULIN ASPART [NOVOLOG] 3 ML PEN SC SCH ×2 (07:25→11:20)
--- NOTE | 2017-07-22 09:19 | PN ---
DATE: 07/22/2017 DATE OF VISIT: 07/22/2017 SUBJECTIVE: The patient is without complaint except for feeling tired. Otherwise, no complaints. OBJECTIVE: VITAL SIGNS: Temperature 98.2, pulse 95, blood pressure 117/62, oxygen saturation 99% on FIO2 30%. GENERAL: Well-developed, well-nourished female in no acute distress, lying in bed. CHEST: Clear to auscultation bilaterally except for decreased breath sounds, bilateral bases. HEART: Tachycardic and irregular. ABDOMEN: Soft, nontender, nondistended, normoactive bowel sounds. EXTREMITIES: No cyanosis, clubbing. There is trace bilateral lower extremity edema. NEUROLOGIC: Nonfocal. LABORATORY EXAMINATION: Pending at the time of this dictation. ASSESSMENT AND PLAN 1. Acute respiratory failure with hypercapnia due to hypoventilation syndrome/hypoxemia. The patie nt remains stable and is okay for discharge to home when equipment is delivered. Will sent home wit h oxygen for 24 hours a day as well as BiPAP to be used 10 hours a day overnight. 2. Atrial fibrillation, remained stable on the current medications. Will adjust as necessary as ou tpatient. 3. Coronary disease/hypertension, remains stable. Continue with current medications and adjust as necessary as outpatient. 4. Diabetes, stable, with no need for medications. Will continue with diet. 5. Ybdot-ru-epjvhfl renal insufficiency, improved, remains stable. Will continue to monitor as an outpatient. 6. Hypothyroidism, stable. Continue with medications. 7. Anemia. Remains stable after transfusion. No further blood loss. Will continue to monitor and continue on iron. 8. Discharge planning: Patient should get bed delivered today and should be stable for discharge h ome. Once the bed is delivered, will continue with current plans. The patient has a followup appoi ntment with me in 2 days. Dictated By: MORGAN SNOW MD SR/NTS Conf#: [id number] DID#: [id number] CC: SARAH VINCENT MD;*EndCC*
[2017-07-22] MEDS: TRIAMCINOLONE ACET 0.025% 60 ML LOT TOP SCH (09:46)
[2017-07-22] MEDS: FERROUS SULFATE (EC) 325 MG TAB PO SCH (09:46)
[2017-07-22] MEDS: SERTRALINE 50 MG TAB PO SCH (09:46)
[2017-07-22] MEDS: CALCIUM CARBONATE 1.25 GM TAB PO SCH (09:46)
[2017-07-22] MEDS: LEVOTHYROXINE 100 MCG TAB PO SCH (09:46)
[2017-07-22] MEDS: NYSTATIN 30 GM POWDER BTL TOP SCH (09:47)
[2017-07-22] MEDS: APIXABAN 5 MG TABLET PO SCH (09:47)
[2017-07-22] MEDS: BALSAM PERU/CASTOR OIL 60 GM TUBE TOP SCH (09:47)
--- NOTE | 2017-07-22 11:30 | CONS ---
Date/Time of Note Date/Time of Note DATE: 07/22/17 TIME: 11:25 Consult Date/Type/Reason Admit Date/Time Jun 14, 2017 at 09:27 Type of Consultation: Pulmonary Ordering Provider: SARAH VINCENT Subjective Patient stable this morning. Awake alert comfortable nasal cannula oxygen. Vital signs remained stable. Objective Vital Signs Date Time Temp Pulse Resp B/P Pulse Ox O2 Delivery O2 Flow Rate FiO2 07/22/17 08:41 Nasal Cannula 3.0 07/22/17 08:11 89 07/22/17 08:09 98.7 18 153/82 96 07/22/17 05:08 30 Intake and Output 07/21/17 07/21/17 07/22/17 15:00 23:00 07:00 Intake Total 1000 ml 400 ml Balance 1000 ml 400 ml Exam PHYSICAL EXAMINATION GENERAL: Elderly lady comfortable at rest. No distress. VITAL SIGNS: see below. HEENT: Pupils equal, round, and reactive to light. CARDIAC: S1, S2, 1/6 systolic ejection murmur CHEST: Diminished air entry bilaterally. ABDOMEN: Mildly distended. Bowel sounds present no guarding or rebound EXTREMITIES: No cyanosis, clubbing edema +1 NEUROLOGIC: Generalized weakness Results/Medications Result Diagram: 07/21/17 0710 07/21/17 0710 Results 24 hrs Laboratory Tests Test 07/21/17 12:17 07/21/17 17:12 07/21/17 20:56 07/22/17 01:54 Bedside Glucose 76 88 86 93 Test 07/22/17 07:55 Bedside Glucose 72 Medications Current Medications Ondansetron HCl (Zofran Inj) 4 mg Q6H PRN IV NAUSEA AND/OR VOMITING Last administered on 06/27/17 21:40; Admin Dose 4 MG; Start 06/13/17 at 15:30 Acetaminophen (Tylenol Tab) 650 mg Q6H PRN PO PAIN LEVEL 1-3 OR FEVER Last administered on 07/20/17 09:06; Admin Dose 650 MG; Start 06/13/17 at 15:30 Docusate Sodium (Colace) 100 mg Q12H PRN PO CONSTIPATION; Start 06/13/17 at 15 :30 Magnesium Hydroxide (Milk Of Mag) 30 ml DAILY PRN PO CONSTIPATION Last administered on 07/02/17 08:51; Admin Dose 30 ML; Start 06/13/17 at 15:30 Hydralazine HCl (Apresoline) 10 mg Q6H PRN IV ELEVATED BLOOD PRESSURE Last administered on 06/25/17 08:43; Admin Dose 10 MG; Start 06/13/17 at 15:30 Nitroglycerin (Nitroglycerin (Sl Tab) 0.4 Mg) 1 tab Q5M PRN SL ANGINA; Start 06/13/17 at 15:30 Atorvastatin Calcium (Lipitor) 10 mg HS PO Last administered on 06/16/17 21: 47; Admin Dose 10 MG; Start 06/13/17 at 21:00; Status Future Hold Levothyroxine Sodium (Synthroid) 100 mcg DAILY PO Last administered on 09:46; Admin Dose 100 MCG; Start 06/14/17 at 09:00 Montelukast Sodium (Singulair) 10 mg QHS PO Last administered on 07/21/17 20: 52; Admin Dose 10 MG; Start 06/13/17 at 21:00 Insulin Glargine (Lantus) 10 unit DAILY@20 SC ; Start 06/14/17 at 20:00; Status Future Hold Diagnostic Test (Pha) (Accu-Chek) 1 ea 02 XX Last administered on 07/22/17 02 :39; Admin Dose 1 EA; Start 06/15/17 at 02:00 Miscellaneous Information 1 ea NOTE XX ; Start 06/14/17 at 06:00 Glucose (Glutose) 15 gm Q15M PRN PO DECREASED GLUCOSE; Start 06/14/17 at 06:00 Glucose (Glutose) 22.5 gm Q15M PRN PO DECREASED GLUCOSE; Start 06/14/17 at 06: 00 Dextrose (D50w Syringe) 25 ml Q15M PRN IV DECREASED GLUCOSE Last administered on 06/17/17 04:41; Admin Dose 25 ML; Start 06/14/17 at 06:00 Dextrose (D50w Syringe) 50 ml Q15M PRN IV DECREASED GLUCOSE; Start 06/14/17 at 06:00 Glucagon (Glucagen) 1 mg Q15M PRN IM DECREASED GLUCOSE; Start 06/14/17 at 06: 00 Glucose (Glutose) 15 gm Q15M PRN BUCCAL DECREASED GLUCOSE; Start 06/14/17 at 06:00 IV Flush (NS 10 ml) 10 ml PRN PRN IV IV PROTOCOL; Start 06/16/17 at 14:00 Haloperidol (Haldol) 1 mg Q12 PRN IV agitation Last administered on 06/16/17 21:56; Admin Dose 1 MG; Start 06/16/17 at 20:30 Metoprolol Tartrate (Lopressor) 50 mg BID PO Last administered on 06/23/17 20 :02; Admin Dose 50 MG; Start 06/19/17 at 21:00; Status Future hold Hydralazine HCl (Apresoline) 25 mg Q8 PO Last administered on 07/21/17 20:52 ; Admin Dose 25 MG; Start 06/30/17 at 14:00 Carvedilol (Coreg) 6.25 mg BID PO Last administered on 07/22/17 09:46; Admin Dose 6.25 MG; Start 07/02/17 at 21:00 Pantoprazole (Protonix Tab) 40 mg BID@,18 PO Last administered on 07/22/17 06:30; Admin Dose 40 MG; Start 07/02/17 at 18:00 Ferrous Sulfate (Ferrous Sulfate (Ec)) 325 mg DAILY PO Last administered on 09:46; Admin Dose 325 MG; Start 07/06/17 at 12:00 Nystatin (Nystatin Powder) 1 applic BID TOP Last administered on 07/22/17 09: 47; Admin Dose 1 APPLIC; Start 07/10/17 at 21:00 Triamcinolone Acetonide (Kenalog 0.025% Lotion) 1 applic BID TOP Last administered on 07/22/17 09:46; Admin Dose 1 APPLIC; Start 07/11/17 at 00:00 Diphenhydramine HCl (Benadryl) 50 mg Q6H PRN IV rash/itching Last administered on 07/11/17 05:43; Admin Dose 50 MG; Start 07/11/17 at 00:00 Calcium Carbonate (Oyster Shell Calcium) 1.25 gm BID PO Last administered on 09:46; Admin Dose 1.25 GM; Start 07/13/17 at 09:00 Sertraline HCl (Zoloft) 25 mg DAILY PO Last administered on 07/22/17 09:46; Admin Dose 25 MG; Start 12/12/17 at 09:00 Furosemide (Lasix) 20 mg DAILY@06 PO Last administered on 07/22/17 06:30; Admin Dose 20 MG; Start 07/19/17 at 06:00 Apixaban (Eliquis) 2.5 mg BID PO Last administered on 07/22/17 09:47; Admin Dose 2.5 MG; Start 07/18/17 at 21:00 Nifedipine (Procardia) 20 mg Q6 PO Last administered on 07/19/17 13:14; Admin Dose 20 MG; Start 07/19/17 at 12:00; Status Future Hold Diltiazem HCl (Cardizem) 30 mg Q8 PO Last administered on 07/22/17 06:31; Admin Dose 30 MG; Start 07/21/17 at 14:00 Assessment/Plan Chief Complaint/Hosp Course IMP: 1. s/p Acute hypercapnic respiratory failure 2. HTN 3. Atrial fibrillation 4. Diabetes mellitus. 5. Status post shock. Transient hypotension possibly volume depletion. 6. Renal insufficiency. RECS: 1. Continue BiPAP at night and as needed. 2. Rate control per cardiology. 3. Avoid sedation 4. Deep venous thrombosis and gastrointestinal prophylaxis. 5. Aspiration precautions. 6. PT/OT/OOB DC planning okay from pulmonary standpoint Problems: YAZMIN VARGAS MD, [facility] Jul 22, 2017 11:29
--- NOTE | 2017-07-22 11:34 | CONS ---
Date/Time of Note Date/Time of Note DATE: 07/22/17 TIME: 11:33 Assessment/Plan Assessment/Plan Additional Assessment/Plan 1.Hypertension - NL EF by echo this admit - now BP high - Con't to adjust Rx as needed. Pt was given Procardia low dose yesterday, had episode of hypotension - did not tolerate - will hold off now. Stable overall- BiPAP overnight. MUCH BETTER NOW - dispo planned. 2. AF with RVR- prior pauses with BB, all estrella agents were held- now again tolerating coreg/dilt with good heart rates and no sig eren or pause - RATE CONTROLLED NOW. No Class I indication for pacer now. RATE controlled. 3. Renal failure-ongoing but slowly improving - stable. 4. Hypercarbic resp failure s/p extubation-improved with BIPAP when sleeping as necessary - PULMONARY TEAM FOLLOWS. 5. Hypothyroid - Rx as needed. 6. PLeural effusion-s/p thoracentesis - improved SOB - stable. 7. Anemia-a/p transfusion with ? transfusion reaction Consultation Date/Type/Reason Admit Date/Time Jun 14, 2017 at 09:27 Type of Consultation: Pulmonary Referring Provider: SARAH VINCENT 24 HR Interval Summary Free Text/Dictation Much better overall - awaiting dispo. ROS: No fever, no chills, no nausea, no vomiting, no diarrhea/constipation No recent weight changes No chest pain, no PND, no orthopnea No dizziness, blurred vision No thirst, no heat or cold intolerance Exam/Review of Systems Vital Signs Vitals Vital Signs Date Time Temp Pulse Resp B/P Pulse Ox O2 Delivery O2 Flow Rate FiO2 07/22/17 11:25 99.3 87 18 116/74 98 07/22/17 08:41 Nasal Cannula 3.0 07/22/17 05:08 30 Intake and Output 07/21/17 07/21/17 07/22/17 14:59 22:59 06:59 Intake Total 1000 ml 400 ml Balance 1000 ml 400 ml Exam General: WN/WD/NAD, AOx 2-3Spanish HEENT: Unicetric/atraumatic/EOMI (follow commands) NECK: JVD elevated, no thyromegaly Lymph: no lymphadenopathy HEART: regular with no S3, II/ systolic murmur at apex LUNGS: Coarse sounds ABD: soft, NT, ND, +BS : Intact Neuro: non focal SKIN: chronic changes EXT: trace edema Results Result Diagram: 07/21/17 0710 07/21/17 0710 Results 24 hrs Laboratory Tests Test 07/21/17 12:17 07/21/17 17:12 07/21/17 20:56 07/22/17 01:54 Bedside Glucose 76 88 86 93 Test 07/22/17 07:55 Bedside Glucose 72 Medications Medications Current Medications Ondansetron HCl (Zofran Inj) 4 mg Q6H PRN IV NAUSEA AND/OR VOMITING Last administered on 06/27/17 21:40; Admin Dose 4 MG; Start 06/13/17 at 15:30 Acetaminophen (Tylenol Tab) 650 mg Q6H PRN PO PAIN LEVEL 1-3 OR FEVER Last administered on 07/20/17 09:06; Admin Dose 650 MG; Start 06/13/17 at 15:30 Docusate Sodium (Colace) 100 mg Q12H PRN PO CONSTIPATION; Start 06/13/17 at 15 :30 Magnesium Hydroxide (Milk Of Mag) 30 ml DAILY PRN PO CONSTIPATION Last administered on 07/02/17 08:51; Admin Dose 30 ML; Start 06/13/17 at 15:30 Hydralazine HCl (Apresoline) 10 mg Q6H PRN IV ELEVATED BLOOD PRESSURE Last administered on 06/25/17 08:43; Admin Dose 10 MG; Start 06/13/17 at 15:30 Nitroglycerin (Nitroglycerin (Sl Tab) 0.4 Mg) 1 tab Q5M PRN SL ANGINA; Start 06/13/17 at 15:30 Atorvastatin Calcium (Lipitor) 10 mg HS PO Last administered on 06/16/17 21: 47; Admin Dose 10 MG; Start 06/13/17 at 21:00; Status Future Hold Levothyroxine Sodium (Synthroid) 100 mcg DAILY PO Last administered on 09:46; Admin Dose 100 MCG; Start 06/14/17 at 09:00 Montelukast Sodium (Singulair) 10 mg QHS PO Last administered on 07/21/17 20: 52; Admin Dose 10 MG; Start 06/13/17 at 21:00 Insulin Glargine (Lantus) 10 unit DAILY@20 SC ; Start 06/14/17 at 20:00; Status Future Hold Diagnostic Test (Pha) (Accu-Chek) 1 ea 02 XX Last administered on 07/22/17 02 :39; Admin Dose 1 EA; Start 06/15/17 at 02:00 Miscellaneous Information 1 ea NOTE XX ; Start 06/14/17 at 06:00 Glucose (Glutose) 15 gm Q15M PRN PO DECREASED GLUCOSE; Start 06/14/17 at 06:00 Glucose (Glutose) 22.5 gm Q15M PRN PO DECREASED GLUCOSE; Start 06/14/17 at 06: 00 Dextrose (D50w Syringe) 25 ml Q15M PRN IV DECREASED GLUCOSE Last administered on 06/17/17 04:41; Admin Dose 25 ML; Start 06/14/17 at 06:00 Dextrose (D50w Syringe) 50 ml Q15M PRN IV DECREASED GLUCOSE; Start 06/14/17 at 06:00 Glucagon (Glucagen) 1 mg Q15M PRN IM DECREASED GLUCOSE; Start 06/14/17 at 06: 00 Glucose (Glutose) 15 gm Q15M PRN BUCCAL DECREASED GLUCOSE; Start 06/14/17 at 06:00 IV Flush (NS 10 ml) 10 ml PRN PRN IV IV PROTOCOL; Start 06/16/17 at 14:00 Haloperidol (Haldol) 1 mg Q12 PRN IV agitation Last administered on 06/16/17 21:56; Admin Dose 1 MG; Start 06/16/17 at 20:30 Metoprolol Tartrate (Lopressor) 50 mg BID PO Last administered on 06/23/17 20 :02; Admin Dose 50 MG; Start 06/19/17 at 21:00; Status Future hold Hydralazine HCl (Apresoline) 25 mg Q8 PO Last administered on 07/21/17 20:52 ; Admin Dose 25 MG; Start 06/30/17 at 14:00 Carvedilol (Coreg) 6.25 mg BID PO Last administered on 07/22/17 09:46; Admin Dose 6.25 MG; Start 07/02/17 at 21:00 Pantoprazole (Protonix Tab) 40 mg BID@,18 PO Last administered on 07/22/17 06:30; Admin Dose 40 MG; Start 07/02/17 at 18:00 Ferrous Sulfate (Ferrous Sulfate (Ec)) 325 mg DAILY PO Last administered on 09:46; Admin Dose 325 MG; Start 07/06/17 at 12:00 Nystatin (Nystatin Powder) 1 applic BID TOP Last administered on 07/22/17 09: 47; Admin Dose 1 APPLIC; Start 07/10/17 at 21:00 Triamcinolone Acetonide (Kenalog 0.025% Lotion) 1 applic BID TOP Last administered on 07/22/17 09:46; Admin Dose 1 APPLIC; Start 07/11/17 at 00:00 Diphenhydramine HCl (Benadryl) 50 mg Q6H PRN IV rash/itching Last administered on 07/11/17 05:43; Admin Dose 50 MG; Start 07/11/17 at 00:00 Calcium Carbonate (Oyster Shell Calcium) 1.25 gm BID PO Last administered on 09:46; Admin Dose 1.25 GM; Start 07/13/17 at 09:00 Sertraline HCl (Zoloft) 25 mg DAILY PO Last administered on 07/22/17 09:46; Admin Dose 25 MG; Start 07/15/17 at 09:00 Furosemide (Lasix) 20 mg DAILY@06 PO Last administered on 07/22/17 06:30; Admin Dose 20 MG; Start 07/19/17 at 06:00 Apixaban (Eliquis) 2.5 mg BID PO Last administered on 07/22/17 09:47; Admin Dose 2.5 MG; Start 07/18/17 at 21:00 Nifedipine (Procardia) 20 mg Q6 PO Last administered on 07/19/17 13:14; Admin Dose 20 MG; Start 07/19/17 at 12:00; Status Future Hold Diltiazem HCl (Cardizem) 30 mg Q8 PO Last administered on 07/22/17 06:31; Admin Dose 30 MG; Start 07/21/17 at 14:00 LILIAN ABEBE MD Jul 22, 2017 11:34
== END 2017-07-22 17:00 | disposition home or self-care (01) | DRG 189 ==
LOC: E/R 11:49 → MS4 15:04 → OBSVTOIN 06-14 09:27 → ICU 06-16 09:40 → TEL 06-22 14:05 → ICU 06-28 12:44 → TEL 06-30 18:18
PROVIDERS: ADMIT Internal Medicine; ATTEND Internal Medicine
PROC: 5A09457 Assistance with Respiratory Ventilation, 24-96 Consecutive Hours, Continuous Positive Airway Pressure (ICD-10-PCS; principal; 2017-06-14)
PROC: 0BH17EZ Insertion of Endotracheal Airway into Trachea, Via Natural or Artificial Opening (ICD-10-PCS; 2017-06-14)
PROC: 02HV33Z Insertion of Infusion Device into Superior Vena Cava, Percutaneous Approach (ICD-10-PCS; 2017-06-16)
PROC: 0W993ZX Drainage of Right Pleural Cavity, Percutaneous Approach, Diagnostic (ICD-10-PCS; 2017-06-17)
PROC: 0W993ZX Drainage of Right Pleural Cavity, Percutaneous Approach, Diagnostic (ICD-10-PCS; 2017-06-30)
PROC: 30233N1 Transfusion of Nonautologous Red Blood Cells into Peripheral Vein, Percutaneous Approach (ICD-10-PCS; 2017-07-10)
DX: J96.02 Acute respiratory failure with hypercapnia (principal); N17.0 Acute kidney failure with tubular necrosis; R57.9 Shock, unspecified; I50.43 Acute on chronic combined systolic (congestive) and diastolic (congestive) heart failure; E11.22 Type 2 diabetes mellitus with diabetic chronic kidney disease; I95.9 Hypotension, unspecified; D62 Acute posthemorrhagic anemia; J90 Pleural effusion, not elsewhere classified; I13.0 Hypertensive heart and chronic kidney disease with heart failure and stage 1 through stage 4 chronic kidney disease, or unspecified chronic kidney disease; N39.0 Urinary tract infection, site not specified; J44.1 Chronic obstructive pulmonary disease with (acute) exacerbation; I48.2 Chronic atrial fibrillation; R00.1 Bradycardia, unspecified; E83.42 Hypomagnesemia; I12.9 Hypertensive chronic kidney disease with stage 1 through stage 4 chronic kidney disease, or unspecified chronic kidney disease; E87.6 Hypokalemia; E03.9 Hypothyroidism, unspecified; F41.8 Other specified anxiety disorders; R55 Syncope and collapse; D63.1 Anemia in chronic kidney disease; I25.10 Atherosclerotic heart disease of native coronary artery without angina pectoris; N18.2 Chronic kidney disease, stage 2 (mild); B35.4 Tinea corporis; K21.9 Gastro-esophageal reflux disease without esophagitis; J96.91 Respiratory failure, unspecified with hypoxia; Z79.01 Long term (current) use of anticoagulants
CPT/HCPCS: 31500; 32555; 36415; 36430; 36569; 36600; 70450; 71010; 76775; 76937; 80048; 80053; 80061; 80202; 81001; 81003; 82150; 82270; 82271; 82436; 82533; 82550; 82553; 82570; 82607; 82668; 82746; 82803; 82945; 82962; 83036; 83540; 83605; 83615; 83690; 83735; 84100; 84133; 84157; 84300; 84439; 84443; 84484; 85025; 85049; 85362; 85378; 85384; 85610; 85670; 85730; 86078; 86850; 86900; 86901; 86920; 87040; 87070; 87081; 87086; 87102; 87116; 88104; 88305; 89051; 89190; 90686; 92526; 92610; 93005; 93306; 93971; 94002; 94003; 94660; 94770; 97110; 97161; 97162; 97530; G0378; J1940; C9113; J0360; J0696; J0885; J1200; J1630; J1650; J1720; J1815; J1956; J2060; J2310; J2405; J2543; J3370; J3475; J3480; J7030; J7040; J7042; J7050; P9016; P9047

== ENCOUNTER 2018-12-12 14:09 | Inpatient (IN) | payer MEDICARE, OTHER ==
[2018-12-12] VITALS (8 sets, daily range): BP systolic 70–94; BP diastolic 47–65; PULSE 69–78; RESP 9–26; Ht 152.4 cm; Wt 53.0 kg
[~2018-12-12] VITALS: Ht 152.4 cm; Wt 53.0 kg
[~2018-12-12 14:09] MED LIST changes: +APIX5TAB PO; -ASPI325T4 PO; +BALS60OI TOP; +CARV6.2579 PO; +DOCU-216 PO; +LEVO100T8 PO; -LEVO100T87 PO; -LOSA25TA5 PO; -METF500T4 PO; +NYST15PO4 TOP; -OMEP20CA16 PO; +PANT40TA4 PO; -RANI150T5 PO; +SERT50TA6 PO
[2018-12-12] MEDS ORDERED: SODIUM CHLORIDE 0.9% 1L BAG IV* STA (14:41)
[2018-12-12] MEDS ORDERED: ALBU2.5V3 NEB (15:22)
[2018-12-12] MEDS ORDERED: ATEN-51 GTB (15:24)
[2018-12-12] MEDS ORDERED: LORA-441 GTB (15:27)
[2018-12-12] MEDS ORDERED: IPRA3AMP29 INHALATION (15:28)
[2018-12-12] MEDS ORDERED: VANCOMYCIN 1 GM (PMX) 250 ML IVPB ONE (15:30)
[2018-12-12] MEDS ORDERED: DILT30TA30 GTB (15:30)
[2018-12-12] MEDS ORDERED: CEFEPIME 1GM/50 ML (PMX) 50 ML IVPB ONE (15:30)
[2018-12-12] MEDS ORDERED: CLON1PAT32 TD (15:34)
[2018-12-12] MEDS ORDERED: BISA-57 GTB (15:35)
[2018-12-12] MEDS ORDERED: APIX2.5T GTB (15:36)
[2018-12-12] MEDS ORDERED: SACC250C GTB (15:37)
[2018-12-12] MEDS ORDERED: NEPHRO-VITE GTB (15:38)
[2018-12-12] MEDS ORDERED: FAMO20TA18 GTB (15:39)
[2018-12-12] MEDS ORDERED: LEVO-86 GTB (15:40)
[2018-12-12] MEDS ORDERED: TRAM50TA GTB (15:43)
[2018-12-12] MEDS ORDERED: TRAZ-111 GTB (15:44)
[2018-12-12] MEDS ORDERED: ACET325T33 GTB (15:44)
[2018-12-12] MEDS ORDERED: SERT50TA GTB (15:45)
[2018-12-12] MEDS ORDERED: TUBE5VIA3 ID (15:50)
[2018-12-12] MEDS ORDERED: LIDOCAINE 1% (MPF) 5 ML VIAL SC ONE (16:00)
[2018-12-12] MEDS ORDERED: SOD CHLORIDE 0.9% 0 ML IV ONE (16:20)
[2018-12-12] MEDS ORDERED: ACETAMINOPHEN 325 MG TAB PO PRN (16:30)
[2018-12-12] MEDS ORDERED: ONDANSETRON 4 MG INJ IV PRN (16:30)
--- NOTE | 2018-12-12 19:24 | ERD ---
ER Documentation Chief Complaint Chief Complaint PT BIB RA with c/o more altered than usual and hypotension prior to EMS HPI This is an 83-year-old female with a past medical history of hypertension, hyperlipidemia, end-stage renal disease status post right chest tunneled dialysis catheter, last received hemodialysis yesterday, recurrent anemia requiring recent transfusions, sepsis and UTI for which she was recently admitted to outside hospital, discharged to a SNF a few days ago who is presenting for progressive worsening altered mental status. The patient is usually able to communicate with her family, but she has become less responsive over the last few days. She has become slightly tachypneic and was hypotensive at the SNF as well. Limited review of systems secondary to altered mental status. ROS Limited secondary to altered mentation Medications Home Meds Reported Medications Tuberculin,Purif.prot.deriv. (Tubersol) 5 Tub Unit/0.1 Ml Vial, 5 TUB ID ONCE, VIAL ONLY FOR PPD TEST#2 FOR 1 DAY 12/12/18 Sertraline Hcl* (Zoloft*) 50 Mg Tablet, 75 MG GTB DAILY, #30 TAB 12/12/18 Acetaminophen* (Tylenol*) 325 Mg Tablet, 650 MG GTB Q4H PRN for MILD PAIN LEVEL 1-3, TAB 12/12/18 Trazodone Hcl* (Trazodone Hcl*) 50 Mg Tablet, 50 MG GTB QHS, #60 TAB 12/12/18 Tramadol Hcl* (Ultram*) 50 Mg Tablet, 25 MG GTB Q8H PRN for PAIN 4-1010, TAB 12/12/18 Levothyroxine Sodium* (Synthroid*) 100 Mcg Tablet, 100 MCG GTB BEFORE BREAKFAST, #30 TAB 12/12/18 Famotidine* (Famotidine*) 20 Mg Tablet, 20 MG GTB BID, #30 TAB 12/12/18 [Nephro-Nevin] No Conflict Check, 1 TAB GTB DAILY 12/12/18 Saccharomyces Boulardii* (Florastor*) 250 Mg Cap, 250 MG GTB DAILY, CAP 12/12/18 Apixaban* (Eliquis*) 2.5 Mg Tablet, 2.5 MG GTB BID, TAB 12/12/18 Bisacodyl* (Dulcolax*) 5 Mg Tablet.dr, 5 MG GTB Q12H, TAB 12/12/18 Clonidine Patch (CATAPRES PATCH) Unknown Strength Patch, 1 PATCH TD Q WED, #4 PATCH.WK HOLD FOR SBP<110 12/12/18 Diltiazem Hcl* (Cardizem*) 30 Mg Tablet, 30 MG GTB BID, #60 TAB HOLD FOR SBP<110 OR HR<60 12/12/18 Ipratropium-Albuterol (Ipratropium-Albuterol) 0.5-3 Mg/3 Ml Ampul.neb, 3 ML INHALATION Q6, #30 VIAL 12/12/18 Lorazepam* (Ativan*) 0.5 Mg Tablet, 0.5 MG GTB Q8 PRN for ANXIETY, #60 TAB 12/12/18 Atenolol* (Atenolol*) 25 Mg Tablet, 25 MG GTB BID, #30 TAB HOLD FOR SBP<110 OR HR<60 12/12/18 Albuterol Sulfate* (Albuterol Sulfate* Neb) 0.083%-3 Ml Neb, 2.5 MG NEB Q6H PRN for WHEEZING AND SOB, #30 VIAL 12/12/18 Discontinued Reported Medications Montelukast Sodium* (Montelukast Sodium*) 10 Mg Tablet, 10 MG PO QHS, #30 TAB 11/18/15 Levothyroxine Sodium* (Levothyroxine Sodium*) 100 Mcg Tablet, 100 MCG PO DAILY, #1 03/13/11 Discontinued Scripts Nystatin* (Nystop*) 15 Gm Powder, 1 APPLIC TOP BID for 30 Days, #60 PACKET Prov:MORGAN SNOW MD- 07/21/17 Balsam Janis/Franklin Oil (Venelex Ointment) 60 Gm Oint..gm., 1 APPLIC TOP BID for 30 Days, #60 GM Prov:MORGAN SNOW 07/21/17 Pantoprazole* (Pantoprazole*) 40 Mg Tablet.dr, 40 MG PO BID@06,18 for 30 Days, #60 Prov:MORGAN SNOW 07/21/17 Docusate Sodium (Dok) 100 Mg Capsule, 100 MG PO Q12H PRN for CONSTIPATION for 30 Days, #60 CAP Prov:MORGAN SNOW 07/21/17 Sertraline Hcl* (Sertraline Hcl*) 50 Mg Tablet, 25 MG PO DAILY for 30 Days, #30 TAB Prov:MORGAN SNOW 07/21/17 Carvedilol* (Carvedilol*) 6.25 Mg Tablet, 6.25 MG PO BID for 30 Days, #60 TAB Prov:MORGAN SNOW 07/21/17 Apixaban* (Eliquis*) 5 Mg Tablet, 2.5 MG PO BID for 30 Days, #60 TAB Prov:MORGAN SNOW 07/21/17 Hydralazine Hcl* (Hydralazine Hcl*) 50 Mg Tab, 100 MG PO Q8 for 30 Days, #180 TAB Prov:MORGAN SNOW 07/21/17 Atorvastatin Calcium (Atorvastatin Calcium) 10 Mg Tab, 10 MG PO HS for 30 Days, #30 TAB Prov:MORGAN SNOW 07/21/17 Allergies Allergies: Coded Allergies: No Known Allergies (Verified Allergy, Unknown, 12/12/18) PMhx/Soc History of Surgery: Yes (right cataract surgery \2012) Anesthesia Reaction: No Hx Neurological Disorder: No Hx Respiratory Disorders: No Hx Cardiac Disorders: Yes (HTN urgency) Hx Psychiatric Problems: No (depression, anxiety) Hx Miscellaneous Medical Probl: Yes (ESRD-HD, hypothyroidism, GERD) Hx Alcohol Use: No Hx Substance Use: No Hx Tobacco Use: No Smoking Status: Never smoker FmHx Family History: diabetes Physical Exam Vitals Vital Signs Date Temp Pulse Resp B/P (MAP) Pulse Ox O2 O2 Flow FiO2 Time Delivery Rate 12/12/18 78 16 107/58 95 Nasal 2.0 17:00 (74) Cannula 12/12/18 75 97 35 16:46 12/12/18 76 18 105/59 97 Nasal 2.0 16:00 (74) Cannula 12/12/18 97.7 74 16 97/68 (78) 97 Nasal 2.0 15:30 Cannula 12/12/18 2 14:45 12/12/18 97.3 97 18 74/59 (64) 97 14:42 Physical Exam Const: No apparent distress, well-developed, well-nourished Head: Normocephalic, Atraumatic Eyes: Normal Conjunctiva. Extraocular movements intact. ENT: Normal External Ears, Nose. Dry mucous membranes Neck: Full range of motion. No meningismus. Resp: Clear to auscultation bilaterally, No wheezes, rales or rhonchi Cardio: Regular rate and rhythm. No murmurs, rubs or gallops. Right chest tunneled dialysis catheter. Abd: Soft, non tender, non distended. Normal bowel sounds Skin: No petechiae or rashes Back: No midline tenderness. No CVA tenderness Ext: No cyanosis, or edema Neur: Awake and alert. Opens eyes to voice. Follows commands bilaterally. Result Diagram: 12/12/18 1439 12/12/18 1439 Results 24 hrs Laboratory Tests Test 12/12/18 14:39 12/12/18 14:40 12/12/18 14:54 12/12/18 15:15 White Blood Count 19.3 10^3/ul Red Blood Count 2.00 10^6/ul Hemoglobin 6.1 g/dl Hematocrit 21.7 % Mean Corpuscular 108.5 fl Volume Mean Corpuscular 30.5 pg Hemoglobin Mean Corpuscular 28.1 g/dl Hemoglobin Concen t Red Cell 15.2 % Distribution Width Platelet Count 239 10^3/UL Mean Platelet 11.8 fl Volume Immature 1.600 % Granulocytes % Neutrophils % % Segmented 90 % Neutrophils % (Manual) Lymphocytes % % Lymphocytes % 6 % (Manual) Monocytes % % Monocytes % 4 % (Manual) Eosinophils % % Basophils % % Nucleated Red 2 % Blood Cells % Immature 0.310 10^3/ul Granulocytes # Neutrophils # 10^3/ul Lymphocytes 1.1 10^3/ul (Manual) Lymphocytes # 10^3/ul Monocytes # 10^3/ul Monocytes # 0.7 10^3/ul (Manual) Eosinophils # 10^3/ul Basophils # 10^3/ul Nucleated Red 10^3/ul Blood Cells # Pathologist YES Review (Hematolog y) Giant Platelets 1 % Poikilocytosis 1+ Anisocytosis 1+ Prothrombin Time 19.8 Sec Prothrombin Time 1.5 Ratio INR International 1.67 Normalized Ratio Activated 39.9 Sec Partial Thrombopl ast Time Sodium Level 142 mmol/L Potassium Level 4.4 mmol/L Chloride Level 102 mmol/L Carbon Dioxide 28 mmol/L Level Anion Gap 12 Blood Urea 65 mg/dl Nitrogen Creatinine 2.91 mg/dl Est Glomerular mL/min Filtrat Rate mL/min Glucose Level 231 mg/dl Calcium Level 8.9 mg/dl Total Bilirubin 0.0 mg/dl Direct Bilirubin 0.00 mg/dl Indirect 0.0 mg/dl Bilirubin Aspartate Amino 109 IU/L Transf (AST/SGOT) Alanine 53 IU/L Aminotransferase (ALT/SGPT) Alkaline 157 IU/L Phosphatase Troponin I 0.147 ng/ml Total Protein 6.2 g/dl Albumin 3.1 g/dl Globulin 3.10 g/dl Albumin/Globulin 1.00 Ratio Salicylates Level < 1.0 mg/dl Acetaminophen < 10.0 ug/ml Level Ethyl Alcohol < 10.0 mg/dl Level POC Venous 2.8 mmol/L Lactate Bedside Glucose 238 mg/dL Urine Color YELLOW Urine Clarity TURBID Urine pH 5.0 Urine Specific 1.025 [place] Urine Ketones NEGATIVE mg/dL Urine Nitrite NEGATIVE mg/dL Urine Bilirubin NEGATIVE mg/dL Urine NEGATIVE mg/dL Urobilinogen Urine Leukocyte 1+ Nerissa/ul Esterase Urine Microscopic > 182 /HPF RBC Urine Microscopic > 182 /HPF WBC Urine Squamous MANY /HPF Epithelial Cells Urine Bacteria MANY /HPF Urine Mucus MODERATE /HPF Urine Yeast MANY /HPF (Budding) Urine Hemoglobin 2+ mg/dL Urine Glucose NEGATIVE mg/dL Urine Total 2+ mg/dl Protein Urine Opiates Negative Screen Urine Negative Barbiturates Urine Negative Amphetamines Screen Urine Negative Benzodiazepines Screen Urine Cocaine Negative Screen Urine Negative Cannabinoids Test 12/12/18 17:07 POC Venous 2.9 mmol/L Lactate Current Medications Medications Dose Sig/Yosef Start Time Status Last (Trade) Ordered Route PRN Stop Time Admin Dose Reason Admin Sodium 1,500 ml BOLUS OVER 2 12/12/18 DC 12/12/18 Chloride HOURS STAT 14:41 15:14 (NS) IV* 12/12/18 14:44 Vancomycin 250 ml @ ONCE ONCE 12/12/18 DC 12/12/18 HCl 125 mls/hr IVPB 15:30 16:45 12/12/18 17:29 Cefepime HCl 50 ml @ ONCE ONCE 12/12/18 DC 12/12/18 100 mls/hr IVPB 15:30 16:12 12/12/18 15:59 Lidocaine 5 ml ONCE ONCE 12/12/18 DC (Xylocaine SC 16:00 1% (Mpf)) 12/12/18 16:01 Sodium 0 ml @ 0 Q0M ONCE 12/12/18 DC Chloride mls/hr IV 16:20 12/12/18 16:21 Ondansetron 4 mg ER BRIDGE 12/12/18 HCl (Zofran PRN IV 16:30 Inj) NAUSEA/VOMITI 12/13/18 16:29 NG 650 mg ER BRIDGE 12/12/18 Acetaminophen PRN PO 16:30 (Tylenol .MILD PAIN 12/13/18 16:29 Tab) 1-3 OR TEMP Procedures/MDM MDM The patient's presentation warrants further investigation. Previous medical records, if available, were reviewed. LABS The patient's laboratory testing was obtained and reviewed. No emergent treatment was required unless described below. CBC: Significant macrocytic anemia, requires treatment. Significant leukocyto sis, concerning for an infection. Normal platelet count. Chemistry: No E/o severe acidosis or alkalosis. Elevated BUN and creatinine in line with her known end-stage renal disease. Hyperglycemia without DKA. Transaminitis evident. PT/INR: No E/o significant coagulopathy Lactate: E/o severe sepsis Troponin: Elevated in the setting of end-stage renal disease Urine: E/o acute infection with hematuria Tox: No E/o alcohol abuse. No E/o illicit drug use. No E/o salicylate or acetaminophen use. ABG: Hypercapnic respiratory acidosis EKG EKG read by me: Rate/Rhythm: Irregular rhythm, regular rate indicating atrial fibrillation at 65 bpm Intervals: Normal QRS and QTc. Heber: Normal Impression: Low voltage QRS. No evidence of acute ischemia. Rate controlled atrial fibrillation IMAGING Imaging and Radiology interpretation reviewed. CXR FINDINGS: The heart is enlarged. The thoracic aorta is calcified. There is mild pulmonary vascular congestion. There are increased interstitial changes throughout the lungs, right greater than left. There is a moderate right pleural effusion. There is a small left pleural effusion. There is a right-sided Perma- Cath in place. There is no pneumothorax. IMPRESSION: Mild cardiomegaly. Mild pulmonary vascular congestion. Bilateral increased interstitial changes, right greater than left. Moderate right pleural effusion and small left pleural effusion. Calcified aorta consistent with atherosclerotic disease. Electronically viewed and signed by Kieran Driscoll MD on 12/12/2018 15:33 CT Head FINDINGS: Brain: No acute intracranial findings. No mass, hemorrhage, or evidence of acute infarct. There is mild parenchymal volume loss. Periventricular and subcortical white matter hypodensities are seen, nonspecific, likely related to chronic small vessel ischemic disease. Findings mildly more pronounced compared to prior study 06/17/2017 The ventricles are otherwise normal in size and configuration. Intracranial atherosclerotic calcifications are noted. Bones: The skull base and calvarium are normal in appearance. Orbits: Unremarkable Soft tissues: Unremarkable Paranasal sinuses: Visualized sinuses are clear. IMPRESSION: No acute intracranial findings. Chronic microvascular ischemic disease. Findings are mildly more pronounced compared to prior study 06/17/2017. Electronically viewed and signed by irma Price Physician on 12/12/2018 19:48 TREATMENT/DISPOSITION The patient initially presented for progressive worsening altered mentation. The patient was hypotensive when she first arrived, and she was recently admitted to an outside hospital for sepsis and a UTI. I did complete a septic work-up. The patient does have a significant leukocytosis with a left shift as well as a significant lactic acidosis. I am concerned about severe sepsis. The patient's blood pressure improved with a sepsis bolus of IV fluids. I do not suspect septic shock. The patient does have chronic anemia and frequently requires transfusions. The patient does have a macrocytic anemia requiring transfusion today. The risks and benefits of transfusion were discussed with the patient's family and they consented to the transfusion. The patient's ABG was concerning for hypercapnic respiratory acidosis. There is also evidence of congestive heart failure on the chest x-ray. The patient was ultimately started on BiPAP with improvement of her acidosis and her hypercapnia. The patient's oxygenation remained stable. There is no evidence of pneumonia. The patient's end-stage renal disease is evident, and there are no emergent e lectrolyte abnormalities requiring dialysis today. The patient's troponin was found to be elevated, but this is in the setting of end-stage renal disease. I do not see evidence of acute ischemia on the EKG. This may be followed up further in the hospital. SEPSIS NOTE SIRS Criteria: Leukocytosis Infectious source: UTI End organ damage indicated by: Lactate > 2.0 mmol/L, Hypotension SBP < 90 OR Drop >40 mmHG OR MAP < 65, Cr > 2.0 SEPSIS MANAGEMENT Time to recognize sepsis: 1440 Time to recognize severe sepsis: 1440. Time to recognize septic shock: No septic shock at this time. 3 HOUR BUNDLE Blood cultures x 2 before abx: Yes 30 ml/kg NS bolus completed Initial lactate 2.8 Repeat lactate 2.9 SEPTIC SHOCK ASSESSMENT: NO lactic acid > 4.0 NO persistent hypotension (SBP < 90 or 40 mmHg drop, MAP < 65) despite 30 L/kg IV fluid bolus CRITICAL CARE Critical care time 40 minutes Emergent fluid management while maintaining close respiratory support. Provision of immediate and broad-spectrum antibiotic therapy. Simultaneous assessment for possible sources in order to direct targeted therapy. Consideration for invasive and chemical support to prevent cardiopulmonary collapse. Critical care time is independent of procedures performed. ADMISSION The patient will be admitted to panel in accordance with the patient's insurance. The patient was accepted by Dr. Dubon at 1720 PM on December 12, 2018 to the ICU. Disclaimer: Inadvertent spelling and grammatical errors are likely due to EHR/dictation software use and do not reflect on the overall quality of patient care. Note that the electronic time recorded on this note does not necessarily reflect the actual time of the patient encounter. Departure Diagnosis: Primary Impression: Severe sepsis Additional Impressions: Hypotension Hypotension type: unspecified hypotension type Qualified Codes: I95.9 - Hypotension, unspecified Leukocytosis Leukocytosis type: unspecified Qualified Codes: D72.829 - Elevated white blood cell count, unspecified Lactic acidosis Hypercapnic respiratory failure Chronicity: acute on chronic Qualified Codes: J96.22 - Acute and chronic respiratory failure with hypercapnia Symptomatic anemia Macrocytic anemia Respiratory acidosis Congestive heart failure Heart failure type: unspecified Heart failure chronicity: acute on chronic Qualified Codes: I50.9 - Heart failure, unspecified Elevated troponin Hypoalbuminemia Urinary tract infection Urinary tract infection type: acute cystitis Hematuria presence: with hematuria Qualified Codes: N30.01 - Acute cystitis with hematuria Condition: Critical BENI REYES MD December 12, 2018 19:24
[2018-12-12] MEDS ORDERED: CEPH-443 PO (21:40)
[2018-12-12] MEDS ORDERED: PHEN-537 PO (21:41)
[2018-12-12] MEDS ORDERED: VANCOMYCIN IV PER PHARMACY XX SCH (23:30)
[2018-12-12] MEDS ORDERED: SOD CHLORIDE 0.9% 1,000 ML IV ONE (23:30)
[2018-12-13] VITALS (90 sets, daily range): BP systolic 85–124; BP diastolic 53–81; PULSE 63–96; RESP 0–51
[2018-12-13] MEDS: SOD CHLORIDE 0.9% 1,000 ML IV SCH ×3 (01:10→13:33)
[2018-12-13] MEDS ORDERED: PANTOPRAZOLE 40 MG INJ IV SCH (06:00)
[2018-12-13] MEDS: FAMOTIDINE 20 MG INJ IV SCH (06:03)
--- NOTE | 2018-12-13 08:00 | PN ---
Date/Time of Note Date/Time of Note DATE: 12/13/18 TIME: 08:00 Subjective responds to pain+ Objective Vitals Vital Signs Date Temp Pulse Resp B/P (MAP) Pulse Ox O2 O2 Flow FiO2 Time Delivery Rate 12/13/18 82 100 35 05:29 12/13/18 0 115/71 BIPAP 05:15 (86) 12/13/18 97.9 04:00 12/12/18 2.0 17:00 Intake and Output 12/12/18 12/12/18 12/13/18 1515:00 23:00 07:00 IntakeIntake Total 137.12 ml BalanceBalance 137.12 ml in ICU bed, lying down, tachy, dec bs diffusely, no edema Results Result Diagram: 12/12/18 1439 12/12/18 1439 Results 24 hrs after 2u prbc, hgb >9.0 Medications Medications Current Medications Ondansetron HCl (Zofran Inj) 4 mg ER BRIDGE PRN IV NAUSEA/VOMITING; Start 12/12/18 at 16:30; Stop 12/13/18 at 16:29 Acetaminophen (Tylenol Tab) 650 mg ER BRIDGE PRN PO .MILD PAIN 1-3 OR TEMP; Start 12/12/18 at 16:30; Stop 12/13/18 at 16:29 Sodium Chloride 1,000 ml @ 100 mls/hr Q10H IV Last administered on 12/13/18at 01:10; Admin Dose 100 MLS/HR; Start 12/13/18 at 00:30 Norepinephrine 16 mg/Dextrose 250 ml @ 0.94 mls/hr TITRATE IV Last administered on 12/13/18at 01:12; Admin Dose 1.78 MLS/HR; Start 12/12/18 at 23:30 Vancomycin HCl (Vanco Iv Per Pharmacy) VANCOMYCIN PER PHARMACY PER PROTOCOL XX ; Start 12/12/18 at 23:30 Famotidine (Pepcid Iv) 20 mg DAILY@0600 IV Last administered on 12/13/18at 06:03; Admin Dose 20 MG; Start 12/13/18 at 06:00 Lines/Catheters IV Catheter Type: [place] Central line still needed: No Painting in Place: Yes Cont'd painting catheter reason: terminal illness/intractable pain Assessment/Plan Assessment/Plan 1. urosepsis/ high wbc 2. anuria/ esrd--dialysis 3. low bp 4. severe anemia 5. ams ---ID ref ---Cards ref ---Pulm ref ---renal ref ---cont iv atbx TIMOTEO EDUARDO MD December 13, 2018 08:00
--- NOTE | 2018-12-13 08:01 | HP ---
Date/Time of Note Date/Time of Note DATE: 12/13/18 TIME: 08:01 Assessment/Plan VTE Prophylaxis SCD applied (from Nsg): Yes Pharmacological prophylaxis: heparin Lines/Catheters IV Catheter Type (from Nrsg): [place] line still needed: No Urinary Cath still in place: No (pt. is anuric , HD pt) Assessment/Plan Assessment/Plan 1. uro-sepsis/ high wbc/ high LA/ dirty ua 2. low bp 3. esrd--dialysis 4. anemia 5. ams ---icu admit ---2u prbc transfuse ---ivf ---pressor to keep sbp>90 ---femotidine iv ---iv atbx ---renal ref ---ID ref ---cards ref ---pulm ref Result Diagram: 12/12/18 1439 12/12/18 1439 Results 24hrs Laboratory Tests Test 12/12/18 14:39 12/12/18 14:40 12/12/18 14:54 12/12/18 15:15 White Blood 19.3 #H Count Red Blood Count 2.00 #L Hemoglobin 6.1 #*L Hematocrit 21.7 #L Mean Corpuscular 108.5 H Volume Mean Corpuscular 30.5 Hemoglobin Mean Corpuscular 28.1 L Hemoglobin Lyssa nt Red Cell 15.2 H Distribution Width Platelet Count 239 # Mean Platelet 11.8 H Volume Immature 1.600 H Granulocytes % Neutrophils % Segmented 90 H Neutrophils % (Manual) Lymphocytes % Lymphocytes % 6 L (Manual) Monocytes % Monocytes % 4 (Manual) Eosinophils % Basophils % Nucleated Red 2 H Blood Cells % Immature 0.310 H Granulocytes # Neutrophils # Lymphocytes 1.1 (Manual) Lymphocytes # Monocytes # Monocytes # 0.7 (Manual) Eosinophils # Basophils # Nucleated Red Blood Cells # Pathologist YES Review (Hematolo gy) Giant Platelets 1 H Poikilocytosis 1+ Anisocytosis 1+ Prothrombin Time 19.8 H Prothrombin Time 1.5 Ratio INR 1.67 International Normalized Ratio Activated 39.9 H Partial Thrombop last Time Sodium Level 142 Potassium Level 4.4 Chloride Level 102 Carbon Dioxide 28 Level Anion Gap 12 Blood Urea 65 H Nitrogen Creatinine 2.91 H Est Glomerular Filtrat Rate mL/min Glucose Level 231 H Calcium Level 8.9 Total Bilirubin 0.0 L Direct Bilirubin 0.00 Indirect 0.0 Bilirubin Aspartate Amino 109 H Transf (AST/SGOT ) Alanine 53 Aminotransferase (ALT/SGPT) Alkaline 157 H Phosphatase Troponin I 0.147 *H Total Protein 6.2 Albumin 3.1 L Globulin 3.10 Albumin/Globulin 1.00 Ratio Salicylates < 1.0 L Level Acetaminophen < 10.0 L Level Ethyl Alcohol < 10.0 H Level POC Venous 2.8 *H Lactate Bedside Glucose 238 H Urine Color YELLOW Urine Clarity TURBID A Urine pH 5.0 Urine Specific 1.025 [place] Urine Ketones NEGATIVE Urine Nitrite NEGATIVE Urine Bilirubin NEGATIVE Urine NEGATIVE Urobilinogen Urine Leukocyte 1+ H Esterase Urine > 182 H Microscopic RBC Urine > 182 H Microscopic WBC Urine Squamous MANY A Epithelial Cells Urine Bacteria MANY A Urine Mucus MODERATE Urine Yeast MANY A (Budding) Urine Hemoglobin 2+ H Urine Glucose NEGATIVE Urine Total 2+ H Protein Urine Opiates Negative Screen Urine Negative Barbiturates Urine Negative Amphetamines Screen Urine Negative Benzodiazepines Screen Urine Cocaine Negative Screen Urine Negative Cannabinoids Test 12/12/18 17:07 12/12/18 18:00 12/12/18 19:01 12/12/18 19:03 POC Venous 2.9 *H Lactate Blood Gas Blood arterial Blood arterial Specimen Source Arterial Blood 12/12/2018 4:15: 12/12/2018 7:00: Date Drawn 00 PM 19 PM Arterial Blood 7.190 *L 7.265 *L pH (Temp corrected) Arterial Blood 66.8 H 52.6 H pCO2 (Temp correct) Arterial Blood 209.9 H 106.8 H pO2 (Temp corrected) Arterial Blood 24.9 23.3 HCO3 Arterial Blood -3.2 L -3.5 L Base Excess Arterial Blood 99.5 97.1 Oxygen Saturatio n [place] Test ACCEPTAB ACCEPTAB Arterial Blood Left Radial Right Radial Gas Puncture Site Arterial 0.2 0.4 Blood Carboxyhem oglobin Arterial Blood 0.2 0.2 Methemoglobin Oxyhemoglobin 99.1 H 96.5 Percent Blood Gas 37.0 37.0 Temperature Blood Gas NASAL CANNULA MASK - BIPAP Modality FiO2 30.0 35.0 Blood Gas ERIC REYES Critical Value Read Back Blood Gas [facility] Notified Whom Blood Gas 12/12/2018 4:17: 12/12/2018 7:12: Notified Time 00 PM 23 PM Lactic Acid 6.9 *H Level Blood Gas A-a O2 81.6 H Differential Blood Gas 18.0 Respiration Rate Blood Gas Actual 27 Respiration Rate Blood Gas 10 Pressure Support Blood Gas 18/8 IPAP/EPAP Ratio Test 12/12/18 20:04 12/12/18 20:40 Lactic Acid 7.1 *H Level Blood Gas Blood arterial Specimen Source Arterial Blood 12/12/2018 8:50: Date Drawn 29 PM Arterial Blood 7.303 L pH (Temp corrected) Arterial Blood 47.6 H pCO2 (Temp correct) Arterial Blood 140.2 H pO2 (Temp corrected) Arterial Blood 23.1 HCO3 Arterial Blood -3.3 L Base Excess Arterial Blood 98.6 Oxygen Saturatio n [place] Test ACCEPTAB Arterial Blood Right Radial Gas Puncture Site Arterial 0.5 Blood Carboxyhem oglobin Arterial Blood 0 Methemoglobin Blood Gas A-a O2 54.0 H Differential Oxyhemoglobin 98.1 Percent Blood Gas 37.0 Temperature Blood Gas 18.0 Respiration Rate Blood Gas Actual 22 Respiration Rate Blood Gas MASK - BIPAP Modality FiO2 35.0 Blood Gas 10 Pressure Support Blood Gas 15/5 IPAP/EPAP Ratio Blood Gas Notified Whom Blood Gas 12/12/2018 9:03: Notified Time 20 PM HPI/ROS Admit Date/Time Admit Date/Time December 12, 2018 at 17:19 Hx of Present Illness 83 yo h woman, her family noticed ams & less responsive while pt has been taken cared in snf for a few days. most recently she was in [facility] w/ esrd where dialysis was started, there-after, she was transferred to snf. as she arrived at [facility], she presented w/ hgb <7.0, high LA, dirty ua, high wbc. difficult examine ros for pt is responsive to pain only. 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 Medications Current Medications Ondansetron HCl (Zofran Inj) 4 mg ER BRIDGE PRN IV NAUSEA/VOMITING; Start 12/12/18 at 16:30; Stop 12/13/18 at 16:29 Acetaminophen (Tylenol Tab) 650 mg ER BRIDGE PRN PO .MILD PAIN 1-3 OR TEMP; Start 12/12/18 at 16:30; Stop 12/13/18 at 16:29 Sodium Chloride 1,000 ml @ 100 mls/hr Q10H IV Last administered on 12/13/18at 01:10; Admin Dose 100 MLS/HR; Start 12/13/18 at 00:30 Norepinephrine 16 mg/Dextrose 250 ml @ 0.94 mls/hr TITRATE IV Last adminis tered on 12/13/18at 01:12; Admin Dose 1.78 MLS/HR; Start 12/12/18 at 23:30 Vancomycin HCl (Vanco Iv Per Pharmacy) VANCOMYCIN PER PHARMACY PER PROTOCOL XX ; Start 12/12/18 at 23:30 Famotidine (Pepcid Iv) 20 mg DAILY@0600 IV Last administered on 12/13/18at 06:03; Admin Dose 20 MG; Start 12/13/18 at 06:00 Coded Allergies: No Known Allergies (Verified Allergy, Unknown, 12/12/18) Past Surgical History Past Surgical Hx: noncontributory Family History Significant Family History: no pertinent family hx, diabetes Social History per family--- Alcohol Use: none Smoking Status: Never smoker Drug Use: none Exam/Review of Systems Vital Signs Vitals Vital Signs Date Temp Pulse Resp B/P (MAP) Pulse Ox O2 O2 Flow FiO2 Time Delivery Rate 12/13/18 82 100 35 05:29 12/13/18 0 115/71 BIPAP 05:15 (86) 12/13/18 97.9 04:00 12/12/18 2.0 17:00 Intake and Output 12/12/18 12/12/18 12/13/18 1515:00 23:00 07:00 IntakeIntake Total 137.12 ml BalanceBalance 137.12 ml Exam Exam in icu bed, lying down, responsive to pain, only spont move, slow pupil responce to light, nl nose/ ears, neck-- no jvd/ bruite, lungs--cta, heart--tachy, abd--no mass/ hypo-bs/ nd/ nt, ext--slight pit edema+, vasc--diffuse +1, neuro--diff to exam TIMOTEO EDUARDO MD December 13, 2018 08:01
[2018-12-13] MEDS ORDERED: FLUCONAZOLE 200 MG (PMX) 100 ML IVPB ONE (10:00)
--- NOTE | 2018-12-13 10:25 | CONS ---
Assessment/Plan Assessment/Plan Hospital Course (Demo Recall) 1) sepsis (hypotension which as improved) pt came in with respiratory acidosis but now we see some metabolic acidosis too pt has hx of vomiting and CXR shows haziness of R lung, will start treatment for possible aspiration pneumonia continue with vanco and start zosyn and check procalcitonin get nasal for MRSA 2) ESRD haziness of R lung may just be excess fluid for pt pt has recent hx of UTI but is not producing any urine u/a and urine cx have been sent off already though 3) CO2 retention pt is on biPAP with improvement noted on ABG 4) anemia check stool for OB pt has been transfused 5) AMS likely metabolic encephalopathy, doubt she has a [place]ECT[place] infection CT head showed no acute changes Consultation Date/Type/Reason Admit Date/Time December 12, 2018 at 17:19 Date of Consultation: December 13, 2018 Type of Consult ID Date/Time of Note DATE: 12/13/18 TIME: 10:01 Hx of Present Illness pt was admitted due to pt being less responsive since on friday she got dialysis but it did not affect her lack of responsiveness and was brought to ER yesterday (friday) No reports of fever pt vomited on friday she had 6 stools the day PIN [employer] but no stools since 10pm last night pt is on O2 at home pt was recently at [facility] where she was found to have UTI, CO2 reten tion, worsening renal function with dialysis started last week she was tx to a SNF but since there her B/P worsened (lowered) and she became less responsive Past Medical History ESRD, HTN, hyperlipidemia, anemia Home Meds Reported Medications Tuberculin,Purif.prot.deriv. (Tubersol) 5 Tub Unit/0.1 Ml Vial, 5 TUB ID ONCE, VIAL ONLY FOR PPD TEST#2 FOR 1 DAY 12/12/18 Sertraline Hcl* (Zoloft*) 50 Mg Tablet, 75 MG GTB DAILY, #30 TAB 12/12/18 Acetaminophen* (Tylenol*) 325 Mg Tablet, 650 MG GTB Q4H PRN for MILD PAIN LEVEL 1-3, TAB 12/12/18 Trazodone Hcl* (Trazodone Hcl*) 50 Mg Tablet, 50 MG GTB QHS, #60 TAB 12/12/18 Tramadol Hcl* (Ultram*) 50 Mg Tablet, 25 MG GTB Q8H PRN for PAIN -05/13, TAB 12/12/18 Levothyroxine Sodium* (Synthroid*) 100 Mcg Tablet, 100 MCG GTB BEFORE BREAKFAST, #30 TAB 12/12/18 Famotidine* (Famotidine*) 20 Mg Tablet, 20 MG GTB BID, #30 TAB 12/12/18 [Nephro-Nevin] No Conflict Check, 1 TAB GTB DAILY 12/12/18 Saccharomyces Boulardii* (Florastor*) 250 Mg Cap, 250 MG GTB DAILY, CAP 12/12/18 Apixaban* (Eliquis*) 2.5 Mg Tablet, 2.5 MG GTB BID, TAB 12/12/18 Bisacodyl* (Dulcolax*) 5 Mg Tablet.dr, 5 MG GTB Q12H, TAB 12/12/18 Clonidine Patch (CATAPRES PATCH) Unknown Strength Patch, 1 PATCH TD Q WED, #4 P ATCH.WK HOLD FOR SBP<110 12/12/18 Diltiazem Hcl* (Cardizem*) 30 Mg Tablet, 30 MG GTB BID, #60 TAB HOLD FOR SBP<110 OR HR<60 12/12/18 Ipratropium-Albuterol (Ipratropium-Albuterol) 0.5-3 Mg/3 Ml Ampul.neb, 3 ML INHALATION Q6, #30 VIAL 12/12/18 Lorazepam* (Ativan*) 0.5 Mg Tablet, 0.5 MG GTB Q8 PRN for ANXIETY, #60 TAB 12/12/18 Atenolol* (Atenolol*) 25 Mg Tablet, 25 MG GTB BID, #30 TAB HOLD FOR SBP<110 OR HR<60 12/12/18 Albuterol Sulfate* (Albuterol Sulfate* Neb) 0.083%-3 Ml Neb, 2.5 MG NEB Q6H PRN for WHEEZING AND SOB, #30 VIAL 12/12/18 Discontinued Reported Medications Montelukast Sodium* (Montelukast Sodium*) 10 Mg Tablet, 10 MG PO QHS, #30 TAB 11/18/15 Levothyroxine Sodium* (Levothyroxine Sodium*) 100 Mcg Tablet, 100 MCG PO DAILY, #1 03/13/11 Discontinued Scripts Nystatin* (Nystop*) 15 Gm Powder, 1 APPLIC TOP BID for 30 Days, #60 PACKET Prov:MORGAN SNOW 07/21/17 Balsam [place] Oil (Venelex Ointment) 60 Gm Oint..gm., 1 APPLIC TOP BID for 30 Days, #60 GM Prov:MORGAN SNOW 07/21/17 Pantoprazole* (Pantoprazole*) 40 Mg Tablet.dr, 40 MG PO BID@06,18 for 30 Days, #60 Prov:MORGAN SNOW 07/21/17 Docusate Sodium (Dok) 100 Mg Capsule, 100 MG PO Q12H PRN for CONSTIPATION for 30 Days, #60 CAP Prov:MORGAN SNOW 07/21/17 Sertraline Hcl* (Sertraline Hcl*) 50 Mg Tablet, 25 MG PO DAILY for 30 Days, #30 TAB Prov:MORGAN SNOW 07/21/17 Carvedilol* (Carvedilol*) 6.25 Mg Tablet, 6.25 MG PO BID for 30 Days, #60 TAB Prov:MORGAN SNOW 07/21/17 Apixaban* (Eliquis*) 5 Mg Tablet, 2.5 MG PO BID for 30 Days, #60 TAB Prov:MORGAN SNOW 07/21/17 Hydralazine Hcl* (Hydralazine Hcl*) 50 Mg Tab, 100 MG PO Q8 for 30 Days, #180 TAB Prov:MORGAN SNOW 07/21/17 Atorvastatin Calcium (Atorvastatin Calcium) 10 Mg Tab, 10 MG PO HS for 30 Days, #30 TAB Prov:MORGAN SNOW 07/21/17 Medications Current Medications Ondansetron HCl (Zofran Inj) 4 mg ER BRIDGE PRN IV NAUSEA/VOMITING; Start 12/12/18 at 16:30; Stop 12/13/18 at 16:29 Acetaminophen (Tylenol Tab) 650 mg ER BRIDGE PRN PO .MILD PAIN 1-3 OR TEMP; Start 12/12/18 at 16:30; Stop 12/13/18 at 16:29 Sodium Chloride 1,000 ml @ 100 mls/hr Q10H IV Last administered on 12/13/18at 01:10; Admin Dose 100 MLS/HR; Start 12/13/18 at 00:30 Norepinephrine 16 mg/Dextrose 250 ml @ 0.94 mls/hr TITRATE IV Last admin istered on 12/13/18at 01:12; Admin Dose 1.78 MLS/HR; Start 12/12/18 at 23:30 Vancomycin HCl (Vanco Iv Per Pharmacy) VANCOMYCIN PER PHARMACY PER PROTOCOL XX ; Start 12/12/18 at 23:30 Famotidine (Pepcid Iv) 20 mg DAILY@0600 IV Last administered on 12/13/18at 06:03; Admin Dose 20 MG; Start 12/13/18 at 06:00 Miscellaneous Information (*Rx Drug Level Order Reminder*) RANDOM VANCO LEVEL... 0500 ONCE XX ; Start 12/14/18 at 05:00; Stop 12/14/18 at 05:01 Fluconazole 100 ml @ 100 mls/hr ONCE ONCE IVPB ; Start 12/13/18 at 10:00; Stop 12/13/18 at 10:59 Allergies: Coded Allergies: No Known Allergies (Verified Allergy, Unknown, 12/12/18) Past Surgical History Past Surgical Hx: noncontributory Social History Smoking Status: Unknown if ever smoked Exam/Review of Systems Exam Vitals Vital Signs Date Temp Pulse Resp B/P (MAP) Pulse Ox O2 O2 Flow FiO2 Time Delivery Rate 12/13/18 71 39 95/60 (72) 100 09:30 12/13/18 BIPAP 09:00 12/13/18 98.9 08:00 12/13/18 35 05:29 12/12/18 2.0 17:00 Intake and Output 12/12/18 12/12/18 12/13/18 1515:00 23:00 07:00 IntakeIntake Total 137.12 ml BalanceBalance 137.12 ml Exam pt does not open eyes, is on biPAP Constitutional: non-verbal Head: normocephalic Respiratory: other (crackles at L base and decrease BS on R) Cardiovascular: regular rate and rhythm Gastrointestinal: soft, non-tender Extremities: other (no edema) Results Result Diagram: 12/13/18 0801 12/13/18 0801 Results 24hrs Laboratory Tests Test 12/12/18 14:39 12/12/18 14:40 12/12/18 14:54 12/12/18 15:15 White Blood 19.3 #H Count Red Blood Count 2.00 #L Hemoglobin 6.1 #*L Hematocrit 21.7 #L Mean 108.5 H Corpuscular Volume Mean 30.5 Corpuscular Hemoglobin Mean 28.1 L Corpuscular Hemoglobin Conc ent Red Cell 15.2 H Distribution Width Platelet Count 239 # Mean Platelet 11.8 H Volume Immature 1.600 H Granulocytes % Neutrophils % Segmented 90 H Neutrophils % (Manual) Lymphocytes % Lymphocytes % 6 L (Manual) Monocytes % Monocytes % 4 (Manual) Eosinophils % Basophils % Nucleated Red 2 H Blood Cells % Immature 0.310 H Granulocytes # Neutrophils # Lymphocytes 1.1 (Manual) Lymphocytes # Monocytes # Monocytes # 0.7 (Manual) Eosinophils # Basophils # Nucleated Red Blood Cells # Pathologist YES Review (Hematol ogy) Giant Platelets 1 H Poikilocytosis 1+ Anisocytosis 1+ Prothrombin 19.8 H Time Prothrombin 1.5 Time Ratio INR 1.67 International Normalized Rati o Activated 39.9 H Partial Thrombo plast Time Sodium Level 142 Potassium Level 4.4 Chloride Level 102 Carbon Dioxide 28 Level Anion Gap 12 Blood Urea 65 H Nitrogen Creatinine 2.91 H Est Glomerular Filtrat Rate mL/min Glucose Level 231 H Calcium Level 8.9 Total Bilirubin 0.0 L Direct 0.00 Bilirubin Indirect 0.0 Bilirubin Aspartate Amino 109 H Transf (AST/SGO T) Alanine 53 Aminotransferas e (ALT/SGPT) Alkaline 157 H Phosphatase Troponin I 0.147 *H Total Protein 6.2 Albumin 3.1 L Globulin 3.10 Albumin/Globuli 1.00 n Ratio Salicylates < 1.0 L Level Acetaminophen < 10.0 L Level Ethyl Alcohol < 10.0 H Level POC Venous 2.8 *H Lactate Bedside Glucose 238 H Urine Color YELLOW Urine Clarity TURBID A Urine pH 5.0 Urine Specific 1.025 [place] Urine Ketones NEGATIVE Urine Nitrite NEGATIVE Urine Bilirubin NEGATIVE Urine NEGATIVE Urobilinogen Urine Leukocyte 1+ H Esterase Urine > 182 H Microscopic RBC Urine > 182 H Microscopic WBC Urine Squamous MANY A Epithelial Cell s Urine Bacteria MANY A Urine Mucus MODERATE Urine Yeast MANY A (Budding) Urine 2+ H Hemoglobin Urine Glucose NEGATIVE Urine Total 2+ H Protein Urine Opiates Negative Screen Urine Negative Barbiturates Urine Negative Amphetamines Screen Urine Negative Benzodiazepines Screen Urine Cocaine Negative Screen Urine Negative Cannabinoids Test 12/12/18 17:07 12/12/18 18:00 12/12/18 19:01 12/12/18 19:03 POC Venous 2.9 *H Lactate Blood Gas Blood arterial Blood Specimen arterial Source Arterial Blood 12/12/2018 4:15: 12/12/2018 7:00 Date Drawn 00 PM :19 PM Arterial Blood 7.190 *L 7.265 *L pH (Temp corrected ) Arterial Blood 66.8 H 52.6 H pCO2 (Temp correct) Arterial Blood 209.9 H 106.8 H pO2 (Temp corrected ) Arterial Blood 24.9 23.3 HCO3 Arterial Blood -3.2 L -3.5 L Base Excess Arterial Blood 99.5 97.1 Oxygen Saturati on [place] Test ACCEPTAB ACCEPTAB Arterial Blood Left Radial Right Radial Gas Puncture Site Arterial 0.2 0.4 Blood Carboxyhe moglobin Arterial Blood 0.2 0.2 Methemoglobin Oxyhemoglobin 99.1 H 96.5 Percent Blood Gas 37.0 37.0 Temperature Blood Gas NASAL CANNULA MASK - BIPAP Modality FiO2 30.0 35.0 Blood Gas ERIC REYES Critical Value Read Back Blood Gas [facility] Notified Whom Blood Gas 12/12/2018 4:17: 12/12/2018 7:12 Notified Time 00 PM :23 PM Lactic Acid 6.9 *H Level Blood Gas A-a 81.6 H O2 Differential Blood Gas 18.0 Respiration Rate Blood Gas 27 Actual Respiration Rat e Blood Gas 10 Pressure Support Blood Gas 18/8 IPAP/EPAP Ratio Test 12/12/18 20:04 12/12/18 20:40 12/13/18 07:00 12/13/18 08:01 Lactic Acid 7.1 *H 1.0 Level Blood Gas Blood arterial Blood arterial Specimen Source Arterial Blood 12/12/2018 8:50: 12/13/2018 8:38: Date Drawn 29 PM 20 AM Arterial Blood 7.303 L 7.290 *L pH (Temp corrected ) Arterial Blood 47.6 H 45.3 H pCO2 (Temp correct) Arterial Blood 140.2 H 96.2 H pO2 (Temp corrected ) Arterial Blood 23.1 21.3 L HCO3 Arterial Blood -3.3 L -5.1 L Base Excess Arterial Blood 98.6 96.5 Oxygen Saturati on [place] Test ACCEPTAB ACCEPTAB Arterial Blood Right Radial Right Radial Gas Puncture Site Arterial 0.5 0.4 Blood Carboxyhe moglobin Arterial Blood 0 0.1 Methemoglobin Blood Gas A-a 54.0 H 100.7 H O2 Differential Oxyhemoglobin 98.1 96.0 Percent Blood Gas 37.0 37.0 Temperature Blood Gas 18.0 18.0 Respiration Rate Blood Gas 22 22 Actual Respiration Rat e Blood Gas MASK - BIPAP MASK - BIPAP Modality FiO2 35.0 35.0 Blood Gas 10 10 Pressure Support Blood Gas 16/12 16/12 IPAP/EPAP Ratio Blood Gas [facility] Notified Whom Blood Gas 12/12/2018 9:03: 12/13/2018 8:43: Notified Time 20 PM 25 AM Blood Gas [facility]FARLESS R.N. Critical Value Read Back White Blood 15.8 H Count Red Blood Count 3.24 #L Hemoglobin 9.8 #L Hematocrit 31.3 #L Mean 96.6 Corpuscular Volume Mean 30.2 Corpuscular Hemoglobin Mean 31.3 L Corpuscular Hemoglobin Conc ent Red Cell 16.9 H Distribution Width Platelet Count 223 Mean Platelet 11.2 H Volume Immature 1.200 H Granulocytes % Neutrophils % 89.6 H Lymphocytes % 3.3 L Monocytes % 5.8 Eosinophils % 0.0 Basophils % 0.1 Nucleated Red 2.5 H Blood Cells % Immature 0.190 H Granulocytes # Neutrophils # 14.2 H Lymphocytes # 0.5 L Monocytes # 0.9 Eosinophils # 0.0 Basophils # 0.0 Nucleated Red 0.4 H Blood Cells # Prothrombin 18.9 H Time Prothrombin 1.5 Time Ratio INR 1.57 International Normalized Rati o Activated 36.3 H Partial Thrombo plast Time Sodium Level 142 Potassium Level 4.4 Chloride Level 109 Carbon Dioxide 22 Level Anion Gap 11 Blood Urea 77 H Nitrogen Creatinine 2.88 H Est Glomerular Filtrat Rate mL/min Glucose Level 109 # Calcium Level 8.3 L Magnesium Level 2.8 H Medications Medication Current Medications Ondansetron HCl (Zofran Inj) 4 mg ER BRIDGE PRN IV NAUSEA/VOMITING; Start 12/12/18 at 16:30; Stop 12/13/18 at 16:29 Acetaminophen (Tylenol Tab) 650 mg ER BRIDGE PRN PO .MILD PAIN 1-3 OR TEMP; Start 12/12/18 at 16:30; Stop 12/13/18 at 16:29 Sodium Chloride 1,000 ml @ 100 mls/hr Q10H IV Last administered on 12/13/18at 01:10; Admin Dose 100 MLS/HR; Start 12/13/18 at 00:30 Norepinephrine 16 mg/Dextrose 250 ml @ 0.94 mls/hr TITRATE IV Last administered on 12/13/18at 01:12; Admin Dose 1.78 MLS/HR; Start 12/12/18 at 23:30 Vancomycin HCl (Vanco Iv Per Pharmacy) VANCOMYCIN PER PHARMACY PER PROTOCOL XX ; Start 12/12/18 at 23:30 Famotidine (Pepcid Iv) 20 mg DAILY@0600 IV Last administered on 12/13/18at 06:03; Admin Dose 20 MG; Start 12/13/18 at 06:00 Miscellaneous Information (*Rx Drug Level Order Reminder*) RANDOM VANCO LEVEL... 0500 ONCE XX ; Start 12/14/18 at 05:00; Stop 12/14/18 at 05:01 Fluconazole 100 ml @ 100 mls/hr ONCE ONCE IVPB ; Start 12/13/18 at 10:00; Stop 12/13/18 at 10:59 KYLE DOUGLAS MD December 13, 2018 10:11
--- NOTE | 2018-12-13 13:18 | CONS ---
Assessment/Plan Assessment/Plan Assessment/Plan (Daily) IMP: 1. Septic Shock 2. Urosepsis 3. Hypercapnic Respiratory Failure 4. Encephalopathy--toxic/metabolic in origin 5. ESRD on HD 6. Pulm Edema 7. B/L effusions 8. Anemia RECS: 1. Continue BiPAP; follow mental status and blood gases closely. At the moment, she is protecting her airway and is not in need of intubation 2. Abx per ID 3. Iyer-cultures; follow-up and de-escalate as deemed appropriate 4. Maintain NPO 5. Vasopressors to MAP >65 mm Hg 6. Follow lactate clearance 7. HD/UF 8. Transfuse PRBC as needed Consultation Date/Type/Reason Admit Date/Time December 12, 2018 at 17:19 Date of Consultation: December 13, 2018 Type of Consult Pulm/CCM Date/Time of Note DATE: 12/13/18 TIME: 13:11 Hx of Present Illness Briefly, this is an 83-year-old woman with a past medical history of hyp ertension, hyperlipidemia, end-stage renal disease status post right chest tunneled dialysis catheter, last received hemodialysis yesterday, recurrent anemia requiring recent transfusions, sepsis and UTI for which she was recently admitted to outside hospital and recently discharged to a SNF a few days ago who is presenting for progressive worsening altered mental status, hypotension and tachypnea requiring NiPPV. Subjective hx not possible: pt non-verbal Past Medical History Medical History: congestive heart failure, diabetes, hypertension Home Meds Reported Medications Tuberculin,Purif.prot.deriv. (Tubersol) 5 Tub Unit/0.1 Ml Vial, 5 TUB ID ONCE, VIAL ONLY FOR PPD TEST#2 FOR 1 DAY 12/12/18 Sertraline Hcl* (Zoloft*) 50 Mg Tablet, 75 MG GTB DAILY, #30 TAB 12/12/18 Acetaminophen* (Tylenol*) 325 Mg Tablet, 650 MG GTB Q4H PRN for MILD PAIN LEVEL 1-3, TAB 12/12/18 Trazodone Hcl* (Trazodone Hcl*) 50 Mg Tablet, 50 MG GTB QHS, #60 TAB 12/12/18 Tramadol Hcl* (Ultram*) 50 Mg Tablet, 25 MG GTB Q8H PRN for PAIN 4-05/13, TAB 12/12/18 Levothyroxine Sodium* (Synthroid*) 100 Mcg Tablet, 100 MCG GTB BEFORE BREAKFAST, #30 TAB 12/12/18 Famotidine* (Famotidine*) 20 Mg Tablet, 20 MG GTB BID, #30 TAB 12/12/18 [Nephro-Nevin] No Conflict Check, 1 TAB GTB DAILY 12/12/18 Saccharomyces Boulardii* (Florastor*) 250 Mg Cap, 250 MG GTB DAILY, CAP 12/12/18 Apixaban* (Eliquis*) 2.5 Mg Tablet, 2.5 MG GTB BID, TAB 12/12/18 Bisacodyl* (Dulcolax*) 5 Mg Tablet.dr, 5 MG GTB Q12H, TAB 12/12/18 Clonidine Patch (CATAPRES PATCH) Unknown Strength Patch, 1 PATCH TD Q WED, #4 PATCH.WK HOLD FOR SBP<110 12/12/18 Diltiazem Hcl* (Cardizem*) 30 Mg Tablet, 30 MG GTB BID, #60 TAB HOLD FOR SBP<110 OR HR<60 12/12/18 Ipratropium-Albuterol (Ipratropium-Albuterol) 0.5-3 Mg/3 Ml Ampul.neb, 3 ML INHALATION Q6, #30 VIAL 12/12/18 Lorazepam* (Ativan*) 0.5 Mg Tablet, 0.5 MG GTB Q8 PRN for ANXIETY, #60 TAB 12/12/18 Atenolol* (Atenolol*) 25 Mg Tablet, 25 MG GTB BID, #30 TAB HOLD FOR SBP<110 OR HR<60 12/12/18 Albuterol Sulfate* (Albuterol Sulfate* Neb) 0.083%-3 Ml Neb, 2.5 MG NEB Q6H PRN for WHEEZING AND SOB, #30 VIAL 12/12/18 Discontinued Reported Medications Montelukast Sodium* (Montelukast Sodium*) 10 Mg Tablet, 10 MG PO QHS, #30 TAB 11/18/15 Levothyroxine Sodium* (Levothyroxine Sodium*) 100 Mcg Tablet, 100 MCG PO DAILY, #1 03/13/11 Discontinued Scripts Nystatin* (Nystop*) 15 Gm Powder, 1 APPLIC TOP BID for 30 Days, #60 PACKET Prov:MORGAN SNOW MD- 07/21/17 Balsam Janis/[place] Oil (Venelex Ointment) 60 Gm Oint..gm., 1 APPLIC TOP BID for 30 Days, #60 GM Prov:MORGAN SNOW 07/21/17 Pantoprazole* (Pantoprazole*) 40 Mg Tablet.dr, 40 MG PO BID@06,18 for 30 Days, #60 Prov:MORGAN SNOW 07/21/17 Docusate Sodium (Dok) 100 Mg Capsule, 100 MG PO Q12H PRN for CONSTIPATION for 30 Days, #60 CAP Prov:MORGAN SNOW 07/21/17 Sertraline Hcl* (Sertraline Hcl*) 50 Mg Tablet, 25 MG PO DAILY for 30 Days, #30 TAB Prov:MORGAN SNOW 07/21/17 Carvedilol* (Carvedilol*) 6.25 Mg Tablet, 6.25 MG PO BID for 30 Days, #60 TAB Prov:MORGAN SNOW 07/21/17 Apixaban* (Eliquis*) 5 Mg Tablet, 2.5 MG PO BID for 30 Days, #60 TAB Prov:MORGAN SNOW 07/21/17 Hydralazine Hcl* (Hydralazine Hcl*) 50 Mg Tab, 100 MG PO Q8 for 30 Days, #180 TAB Prov:MORGAN SNOW 07/21/17 Atorvastatin Calcium (Atorvastatin Calcium) 10 Mg Tab, 10 MG PO HS for 30 Days, #30 TAB Prov:MORGAN SNOW 07/21/17 Medications Current Medications Ondansetron HCl (Zofran Inj) 4 mg ER BRIDGE PRN IV NAUSEA/VOMITING; Start 12/02 08/22 at 16:30; Stop 12/13/18 at 16:29 Acetaminophen (Tylenol Tab) 650 mg ER BRIDGE PRN PO .MILD PAIN 1-3 OR TEMP; Start 12/12/18 at 16:30; Stop 12/13/18 at 16:29 Sodium Chloride 1,000 ml @ 100 mls/hr Q10H IV Last administered on 12/13/18at 01:10; Admin Dose 100 MLS/HR; Start 12/13/18 at 00:30 Norepinephrine 16 mg/Dextrose 250 ml @ 0.94 mls/hr TITRATE IV Last administered on 12/13/18at 01:12; Admin Dose 1.78 MLS/HR; Start 12/12/18 at 23:30 Vancomycin HCl (Vanco Iv Per Pharmacy) VANCOMYCIN PER PHARMACY PER PROTOCOL XX ; Start 12/12/18 at 23:30 Famotidine (Pepcid Iv) 20 mg DAILY@0600 IV Last administered on 12/13/18at 06:03; Admin Dose 20 MG; Start 12/13/18 at 06:00 Miscellaneous Information (*Rx Drug Level Order Reminder*) RANDOM VANCO LEVEL... 0500 ONCE XX ; Start 12/14/18 at 05:00; Stop 12/14/18 at 05:01 Piperacillin Sod/ Tazobactam Sod 50 ml @ 100 mls/hr Q8 IVPB ; Start 12/13/18 at 14:00 Allergies: Coded Allergies: No Known Allergies (Verified Allergy, Unknown, 12/12/18) Past Surgical History Past Surgical Hx: noncontributory Family History Significant Family History: no pertinent family hx Social History Alcohol Use: none Smoking Status: Unknown if ever smoked Drug Use: none Exam/Review of Systems Exam Vitals Vital Signs Date Temp Pulse Resp B/P (MAP) Pulse Ox O2 O2 Flow FiO2 Time Delivery Rate 12/13/18 77 100 35 11:20 12/13/18 51 109/75 10:30 (86) 12/13/18 BIPAP 10:00 12/13/18 98.9 08:00 12/12/18 2.0 17:00 Intake and Output 12/12/18 12/12/18 12/13/18 1515:00 23:00 07:00 IntakeIntake Total 147.12 ml OutputOutput Total 0 ml BalanceBalance 147.12 ml Constitutional: non-verbal Head: normocephalic, atraumatic Eyes: nl conjunctiva, nl lids, nl sclera, PERRL ENMT: nl external ears & nose, nl lips & teeth, mucosa pink and moist Neck: supple, non-tender Respiratory: crackles/rales, diminished breath sounds Cardiovascular: irregular rhythm, jugular venous distention (JVD) Gastrointestinal: soft, nl liver, spleen, non-tender Extremities: normal pulses, edema Neurological: confused, DTR's symmetric Results Result Diagram: 12/13/18 0801 12/13/18 0801 Results 24hrs Laboratory Tests Test 12/12/18 14:39 12/12/18 14:40 12/12/18 14:54 12/12/18 15:15 White Blood 19.3 #H Count Red Blood Count 2.00 #L Hemoglobin 6.1 #*L Hematocrit 21.7 #L Mean 108.5 H Corpuscular Volume Mean 30.5 Corpuscular Hemoglobin Mean 28.1 L Corpuscular Hemoglobin Conc ent Red Cell 15.2 H Distribution Width Platelet Count 239 # Mean Platelet 11.8 H Volume Immature 1.600 H Granulocytes % Neutrophils % Segmented 90 H Neutrophils % (Manual) Lymphocytes % Lymphocytes % 6 L (Manual) Monocytes % Monocytes % 4 (Manual) Eosinophils % Basophils % Nucleated Red 2 H Blood Cells % Immature 0.310 H Granulocytes # Neutrophils # Lymphocytes 1.1 (Manual) Lymphocytes # Monocytes # Monocytes # 0.7 (Manual) Eosinophils # Basophils # Nucleated Red Blood Cells # Pathologist YES Review (Hematol ogy) Giant Platelets 1 H Poikilocytosis 1+ Anisocytosis 1+ Prothrombin 19.8 H Time Prothrombin 1.5 Time Ratio INR 1.67 International Normalized Rati o Activated 39.9 H Partial Thrombo plast Time Sodium Level 142 Potassium Level 4.4 Chloride Level 102 Carbon Dioxide 28 Level Anion Gap 12 Blood Urea 65 H Nitrogen Creatinine 2.91 H Est Glomerular Filtrat Rate mL/min Glucose Level 231 H Calcium Level 8.9 Total Bilirubin 0.0 L Direct 0.00 Bilirubin Indirect 0.0 Bilirubin Aspartate Amino 109 H Transf (AST/SGO T) Alanine 53 Aminotransferas e (ALT/SGPT) Alkaline 157 H Phosphatase Troponin I 0.147 *H Total Protein 6.2 Albumin 3.1 L Globulin 3.10 Albumin/Globuli 1.00 n Ratio Salicylates < 1.0 L Level Acetaminophen < 10.0 L Level Ethyl Alcohol < 10.0 H Level POC Venous 2.8 *H Lactate Bedside Glucose 238 H Urine Color YELLOW Urine Clarity TURBID A Urine pH 5.0 Urine Specific 1.025 [place] Urine Ketones NEGATIVE Urine Nitrite NEGATIVE Urine Bilirubin NEGATIVE Urine NEGATIVE Urobilinogen Urine Leukocyte 1+ H Esterase Urine > 182 H Microscopic RBC Urine > 182 H Microscopic WBC Urine Squamous MANY A Epithelial Cell s Urine Bacteria MANY A Urine Mucus MODERATE Urine Yeast MANY A (Budding) Urine 2+ H Hemoglobin Urine Glucose NEGATIVE Urine Total 2+ H Protein Urine Opiates Negative Screen Urine Negative Barbiturates Urine Negative Amphetamines Screen Urine Negative Benzodiazepines Screen Urine Cocaine Negative Screen Urine Negative Cannabinoids Test 12/12/18 17:07 12/12/18 18:00 12/12/18 19:01 12/12/18 19:03 POC Venous 2.9 *H Lactate Blood Gas Blood arterial Blood Specimen arterial Source Arterial Blood 12/12/2018 4:15: 12/12/2018 7:00 Date Drawn 00 PM :19 PM Arterial Blood 7.190 *L 7.265 *L pH (Temp corrected ) Arterial Blood 66.8 H 52.6 H pCO2 (Temp correct) Arterial Blood 209.9 H 106.8 H pO2 (Temp corrected ) Arterial Blood 24.9 23.3 HCO3 Arterial Blood -3.2 L -3.5 L Base Excess Arterial Blood 99.5 97.1 Oxygen Saturati on [place] Test ACCEPTAB ACCEPTAB Arterial Blood Left Radial Right Radial Gas Puncture Site Arterial 0.2 0.4 Blood Carboxyhe moglobin Arterial Blood 0.2 0.2 Methemoglobin Oxyhemoglobin 99.1 H 96.5 Percent Blood Gas 37.0 37.0 Temperature Blood Gas NASAL CANNULA MASK - BIPAP Modality FiO2 30.0 35.0 Blood Gas ERIC REYES Critical Value Read Back Blood Gas [facility] Notified Whom Blood Gas 12/12/2018 4:17: 12/12/2018 7:12 Notified Time 00 PM :23 PM Lactic Acid 6.9 *H Level Blood Gas A-a 81.6 H O2 Differential Blood Gas 18.0 Respiration Rate Blood Gas 27 Actual Respiration Rat e Blood Gas 10 Pressure Support Blood Gas 18/8 IPAP/EPAP Ratio Test 12/12/18 20:04 12/12/18 20:40 12/13/18 07:00 12/13/18 08:01 Lactic Acid 7.1 *H 1.0 Level Blood Gas Blood arterial Blood arterial Specimen Source Arterial Blood 12/12/2018 8:50: 12/13/2018 8:38: Date Drawn 29 PM 20 AM Arterial Blood 7.303 L 7.290 *L pH (Temp corrected ) Arterial Blood 47.6 H 45.3 H pCO2 (Temp correct) Arterial Blood 140.2 H 96.2 H pO2 (Temp corrected ) Arterial Blood 23.1 21.3 L HCO3 Arterial Blood -3.3 L -5.1 L Base Excess Arterial Blood 98.6 96.5 Oxygen Saturati on [place] Test ACCEPTAB ACCEPTAB Arterial Blood Right Radial Right Radial Gas Puncture Site Arterial 0.5 0.4 Blood Carboxyhe moglobin Arterial Blood 0 0.1 Methemoglobin Blood Gas A-a 54.0 H 100.7 H O2 Differential Oxyhemoglobin 98.1 96.0 Percent Blood Gas 37.0 37.0 Temperature Blood Gas 18.0 18.0 Respiration Rate Blood Gas 22 22 Actual Respiration Rat e Blood Gas MASK - BIPAP MASK - BIPAP Modality FiO2 35.0 35.0 Blood Gas 10 10 Pressure Support Blood Gas 16/12 16/12 IPAP/EPAP Ratio Blood Gas [facility] Notified Whom Blood Gas 12/12/2018 9:03: 12/13/2018 8:43: Notified Time 20 PM 25 AM Blood Gas [facility] R.N. Critical Value Read Back White Blood 15.8 H Count Red Blood Count 3.24 #L Hemoglobin 9.8 #L Hematocrit 31.3 #L Mean 96.6 Corpuscular Volume Mean 30.2 Corpuscular Hemoglobin Mean 31.3 L Corpuscular Hemoglobin Conc ent Red Cell 16.9 H Distribution Width Platelet Count 223 Mean Platelet 11.2 H Volume Immature 1.200 H Granulocytes % Neutrophils % 89.6 H Lymphocytes % 3.3 L Monocytes % 5.8 Eosinophils % 0.0 Basophils % 0.1 Nucleated Red 2.5 H Blood Cells % Immature 0.190 H Granulocytes # Neutrophils # 14.2 H Lymphocytes # 0.5 L Monocytes # 0.9 Eosinophils # 0.0 Basophils # 0.0 Nucleated Red 0.4 H Blood Cells # Prothrombin 18.9 H Time Prothrombin 1.5 Time Ratio INR 1.57 International Normalized Rati o Activated 36.3 H Partial Thrombo plast Time Sodium Level 142 Potassium Level 4.4 Chloride Level 109 Carbon Dioxide 22 Level Anion Gap 11 Blood Urea 77 H Nitrogen Creatinine 2.88 H Est Glomerular Filtrat Rate mL/min Glucose Level 109 # Calcium Level 8.3 L Magnesium Level 2.8 H Test 12/13/18 10:56 Procalcitonin 0.36 H Medications Medication Current Medications Ondansetron HCl (Zofran Inj) 4 mg ER BRIDGE PRN IV NAUSEA/VOMITING; Start 12/12/18 at 16:30; Stop 12/13/18 at 16:29 Acetaminophen (Tylenol Tab) 650 mg ER BRIDGE PRN PO .MILD PAIN 1-3 OR TEMP; Start 12/12/18 at 16:30; Stop 12/13/18 at 16:29 Sodium Chloride 1,000 ml @ 100 mls/hr Q10H IV Last administered on 12/13/18at 01:10; Admin Dose 100 MLS/HR; Start 12/13/18 at 00:30 Norepinephrine 16 mg/Dextrose 250 ml @ 0.94 mls/hr TITRATE IV Last administered on 12/13/18at 01:12; Admin Dose 1.78 MLS/HR; Start 12/12/18 at 23:30 Vancomycin HCl (Vanco Iv Per Pharmacy) VANCOMYCIN PER PHARMACY PER PROTOCOL XX ; Start 12/12/18 at 23:30 Famotidine (Pepcid Iv) 20 mg DAILY@0600 IV Last administered on 12/13/18at 06:03; Admin Dose 20 MG; Start 12/13/18 at 06:00 Miscellaneous Information (*Rx Drug Level Order Reminder*) RANDOM VANCO LEVEL... 0500 ONCE XX ; Start 12/14/18 at 05:00; Stop 12/14/18 at 05:01 Piperacillin Sod/ Tazobactam Sod 50 ml @ 100 mls/hr Q8 IVPB ; Start 12/13/18 at 14:00 MEGAN VARGAS MD December 13, 2018 13:18
--- NOTE | 2018-12-13 13:57 | CONS ---
Consultation Date/Type/Reason Admit Date/Time December 12, 2018 at 17:19 Type of Consult Cardiology Date/Time of Note DATE: 12/13/18 TIME: 13:56 Hx of Present Illness BP better- known a. fib - off anti-coag now - will monitor clinically now full note dictated # [id number] Past Medical History Home Meds Reported Medications Tuberculin,Purif.prot.deriv. (Tubersol) 5 Tub Unit/0.1 Ml Vial, 5 TUB ID ONCE, VIAL ONLY FOR PPD TEST#2 FOR 1 DAY 12/12/18 Sertraline Hcl* (Zoloft*) 50 Mg Tablet, 75 MG GTB DAILY, #30 TAB 12/12/18 Acetaminophen* (Tylenol*) 325 Mg Tablet, 650 MG GTB Q4H PRN for MILD PAIN LEVEL 1-3, TAB 12/12/18 Trazodone Hcl* (Trazodone Hcl*) 50 Mg Tablet, 50 MG GTB QHS, #60 TAB 12/12/18 Tramadol Hcl* (Ultram*) 50 Mg Tablet, 25 MG GTB Q8H PRN for PAIN 4-05/13, TAB 12/12/18 Levothyroxine Sodium* (Synthroid*) 100 Mcg Tablet, 100 MCG GTB BEFORE BREAKFAST, #30 TAB 12/12/18 Famotidine* (Famotidine*) 20 Mg Tablet, 20 MG GTB BID, #30 TAB 12/12/18 [Nephro-Nevin] No Conflict Check, 1 TAB GTB DAILY 12/12/18 Saccharomyces Boulardii* (Florastor*) 250 Mg Cap, 250 MG GTB DAILY, CAP 12/12/18 Apixaban* (Eliquis*) 2.5 Mg Tablet, 2.5 MG GTB BID, TAB 12/12/18 Bisacodyl* (Dulcolax*) 5 Mg Tablet.dr, 5 MG GTB Q12H, TAB 12/12/18 Clonidine Patch (CATAPRES PATCH) Unknown Strength Patch, 1 PATCH TD Q WED, #4 PATCH.WK HOLD FOR SBP<110 12/12/18 Diltiazem Hcl* (Cardizem*) 30 Mg Tablet, 30 MG GTB BID, #60 TAB HOLD FOR SBP<110 OR HR<60 12/12/18 Ipratropium-Albuterol (Ipratropium-Albuterol) 0.5-3 Mg/3 Ml Ampul.neb, 3 ML INHALATION Q6, #30 VIAL 12/12/18 Lorazepam* (Ativan*) 0.5 Mg Tablet, 0.5 MG GTB Q8 PRN for ANXIETY, #60 TAB 12/12/18 Atenolol* (Atenolol*) 25 Mg Tablet, 25 MG GTB BID, #30 TAB HOLD FOR SBP<110 OR HR<60 12/12/18 Albuterol Sulfate* (Albuterol Sulfate* Neb) 0.083%-3 Ml Neb, 2.5 MG NEB Q6H PRN for WHEEZING AND SOB, #30 VIAL 12/12/18 Discontinued Reported Medications Montelukast Sodium* (Montelukast Sodium*) 10 Mg Tablet, 10 MG PO QHS, #30 TAB 11/18/15 Levothyroxine Sodium* (Levothyroxine Sodium*) 100 Mcg Tablet, 100 MCG PO DAILY, #1 03/13/11 Discontinued Scripts Nystatin* (Nystop*) 15 Gm Powder, 1 APPLIC TOP BID for 30 Days, #60 PACKET Prov:MORGAN SNOW 07/21/17 Balsam [place] Oil (Venelex Ointment) 60 Gm Oint..gm., 1 APPLIC TOP BID for 30 Days, #60 GM Prov:MORGAN SNOW 07/21/17 Pantoprazole* (Pantoprazole*) 40 Mg Tablet.dr, 40 MG PO BID@06,18 for 30 Days, #60 Prov:MORGAN SNOW 07/21/17 Docusate Sodium (Dok) 100 Mg Capsule, 100 MG PO Q12H PRN for CONSTIPATION for 30 Days, #60 CAP Prov:MORGAN SNOW 07/21/17 Sertraline Hcl* (Sertraline Hcl*) 50 Mg Tablet, 25 MG PO DAILY for 30 Days, #30 TAB Prov:MORGAN SNOW 07/21/17 Carvedilol* (Carvedilol*) 6.25 Mg Tablet, 6.25 MG PO BID for 30 Days, #60 TAB Prov:MORGAN SNOW 07/21/17 Apixaban* (Eliquis*) 5 Mg Tablet, 2.5 MG PO BID for 30 Days, #60 TAB Prov:MORGAN SNOW MD- 07/21/17 Hydralazine Hcl* (Hydralazine Hcl*) 50 Mg Tab, 100 MG PO Q8 for 30 Days, #180 TAB Prov:MORGAN SNOW MD- 07/21/17 Atorvastatin Calcium (Atorvastatin Calcium) 10 Mg Tab, 10 MG PO HS for 30 Days, #30 TAB Prov:MORGAN SNOW MD- 07/21/17 Medications Current Medications Ondansetron HCl (Zofran Inj) 4 mg ER BRIDGE PRN IV NAUSEA/VOMITING; Start 12/12/18 at 16:30; Stop 12/13/18 at 16:29 Acetaminophen (Tylenol Tab) 650 mg ER BRIDGE PRN PO .MILD PAIN 1-3 OR TEMP; Start 12/12/18 at 16:30; Stop 12/13/18 at 16:29 Sodium Chloride 1,000 ml @ 100 mls/hr Q10H IV Last administered on 12/13/18at 13:33; Admin Dose 100 MLS/HR; Start 12/13/18 at 00:30 Norepinephrine 16 mg/Dextrose 250 ml @ 0.94 mls/hr TITRATE IV Last administered on 12/13/18at 01:12; Admin Dose 1.78 MLS/HR; Start 12/12/18 at 23:30 Vancomycin HCl (Vanco Iv Per Pharmacy) VANCOMYCIN PER PHARMACY PER PROTOCOL XX ; Start 12/12/18 at 23:30 Famotidine (Pepcid Iv) 20 mg DAILY@0600 IV Last administered on 12/13/18at 06:03; Admin Dose 20 MG; Start 12/13/18 at 06:00 Miscellaneous Information (*Rx Drug Level Order Reminder*) RANDOM VANCO LEVEL... 0500 ONCE XX ; Start 12/14/18 at 05:00; Stop 12/14/18 at 05:01 Piperacillin Sod/ Tazobactam Sod 50 ml @ 100 mls/hr Q8 IVPB ; Start 12/13/18 at 14:00 Allergies: Coded Allergies: No Known Allergies (Verified Allergy, Unknown, 12/12/18) Past Surgical History Past Surgical Hx: noncontributory Social History Alcohol Use: none Smoking Status: Unknown if ever smoked Drug Use: none Exam/Review of Systems Vital Signs Vitals Vital Signs Date Temp Pulse Resp B/P (MAP) Pulse Ox O2 O2 Flow FiO2 Time Delivery Rate 12/13/18 82 25 107/73 100 13:45 (84) 12/13/18 BIPAP 13:00 12/13/18 98.9 12:00 12/13/18 35 11:20 12/12/18 2.0 17:00 Intake and Output 12/12/18 12/12/18 12/13/18 1515:00 23:00 07:00 IntakeIntake Total 147.12 ml OutputOutput Total 0 ml BalanceBalance 147.12 ml Labs Result Diagram: 12/13/18 0801 12/13/18 0801 Results 24hrs Laboratory Tests Test 12/12/18 14:39 12/12/18 14:40 12/12/18 14:54 12/12/18 15:15 White Blood 19.3 #H Count Red Blood Count 2.00 #L Hemoglobin 6.1 #*L Hematocrit 21.7 #L Mean 108.5 H Corpuscular Volume Mean 30.5 Corpuscular Hemoglobin Mean 28.1 L Corpuscular Hemoglobin Conc ent Red Cell 15.2 H Distribution Width Platelet Count 239 # Mean Platelet 11.8 H Volume Immature 1.600 H Granulocytes % Neutrophils % Segmented 90 H Neutrophils % (Manual) Lymphocytes % Lymphocytes % 6 L (Manual) Monocytes % Monocytes % 4 (Manual) Eosinophils % Basophils % Nucleated Red 2 H Blood Cells % Immature 0.310 H Granulocytes # Neutrophils # Lymphocytes 1.1 (Manual) Lymphocytes # Monocytes # Monocytes # 0.7 (Manual) Eosinophils # Basophils # Nucleated Red Blood Cells # Pathologist YES Review (Hematol ogy) Giant Platelets 1 H Poikilocytosis 1+ Anisocytosis 1+ Prothrombin 19.8 H Time Prothrombin 1.5 Time Ratio INR 1.67 International Normalized Rati o Activated 39.9 H Partial Thrombo plast Time Sodium Level 142 Potassium Level 4.4 Chloride Level 102 Carbon Dioxide 28 Level Anion Gap 12 Blood Urea 65 H Nitrogen Creatinine 2.91 H Est Glomerular Filtrat Rate mL/min Glucose Level 231 H Calcium Level 8.9 Total Bilirubin 0.0 L Direct 0.00 Bilirubin Indirect 0.0 Bilirubin Aspartate Amino 109 H Transf (AST/SGO T) Alanine 53 Aminotransferas e (ALT/SGPT) Alkaline 157 H Phosphatase Troponin I 0.147 *H Total Protein 6.2 Albumin 3.1 L Globulin 3.10 Albumin/Globuli 1.00 n Ratio Salicylates < 1.0 L Level Acetaminophen < 10.0 L Level Ethyl Alcohol < 10.0 H Level POC Venous 2.8 *H Lactate Bedside Glucose 238 H Urine Color YELLOW Urine Clarity TURBID A Urine pH 5.0 Urine Specific 1.025 [place] Urine Ketones NEGATIVE Urine Nitrite NEGATIVE Urine Bilirubin NEGATIVE Urine NEGATIVE Urobilinogen Urine Leukocyte 1+ H Esterase Urine > 182 H Microscopic RBC Urine > 182 H Microscopic WBC Urine Squamous MANY A Epithelial Cell s Urine Bacteria MANY A Urine Mucus MODERATE Urine Yeast MANY A (Budding) Urine 2+ H Hemoglobin Urine Glucose NEGATIVE Urine Total 2+ H Protein Urine Opiates Negative Screen Urine Negative Barbiturates Urine Negative Amphetamines Screen Urine Negative Benzodiazepines Screen Urine Cocaine Negative Screen Urine Negative Cannabinoids Test 12/12/18 17:07 12/12/18 18:00 12/12/18 19:01 12/12/18 19:03 POC Venous 2.9 *H Lactate Blood Gas Blood arterial Blood Specimen arterial Source Arterial Blood 12/12/2018 4:15: 12/12/2018 7:00 Date Drawn 00 PM :19 PM Arterial Blood 7.190 *L 7.265 *L pH (Temp corrected ) Arterial Blood 66.8 H 52.6 H pCO2 (Temp correct) Arterial Blood 209.9 H 106.8 H pO2 (Temp corrected ) Arterial Blood 24.9 23.3 HCO3 Arterial Blood -3.2 L -3.5 L Base Excess Arterial Blood 99.5 97.1 Oxygen Saturati on [place] Test ACCEPTAB ACCEPTAB Arterial Blood Left Radial Right Radial Gas Puncture Site Arterial 0.2 0.4 Blood Carboxyhe moglobin Arterial Blood 0.2 0.2 Methemoglobin Oxyhemoglobin 99.1 H 96.5 Percent Blood Gas 37.0 37.0 Temperature Blood Gas NASAL CANNULA MASK - BIPAP Modality FiO2 30.0 35.0 Blood Gas ERIC REYES Critical Value Read Back Blood Gas [facility] Notified Whom Blood Gas 12/12/2018 4:17: 12/12/2018 7:12 Notified Time 00 PM :23 PM Lactic Acid 6.9 *H Level Blood Gas A-a 81.6 H O2 Differential Blood Gas 18.0 Respiration Rate Blood Gas 27 Actual Respiration Rat e Blood Gas 10 Pressure Support Blood Gas 18/8 IPAP/EPAP Ratio Test 12/12/18 20:04 12/12/18 20:40 12/13/18 07:00 12/13/18 08:01 Lactic Acid 7.1 *H 1.0 Level Blood Gas Blood arterial Blood arterial Specimen Source Arterial Blood 12/12/2018 8:50: 12/13/2018 8:38: Date Drawn 29 PM 20 AM Arterial Blood 7.303 L 7.290 *L pH (Temp corrected ) Arterial Blood 47.6 H 45.3 H pCO2 (Temp correct) Arterial Blood 140.2 H 96.2 H pO2 (Temp corrected ) Arterial Blood 23.1 21.3 L HCO3 Arterial Blood -3.3 L -5.1 L Base Excess Arterial Blood 98.6 96.5 Oxygen Saturati on [place] Test ACCEPTAB ACCEPTAB Arterial Blood Right Radial Right Radial Gas Puncture Site Arterial 0.5 0.4 Blood Carboxyhe moglobin Arterial Blood 0 0.1 Methemoglobin Blood Gas A-a 54.0 H 100.7 H O2 Differential Oxyhemoglobin 98.1 96.0 Percent Blood Gas 37.0 37.0 Temperature Blood Gas 18.0 18.0 Respiration Rate Blood Gas 22 22 Actual Respiration Rat e Blood Gas MASK - BIPAP MASK - BIPAP Modality FiO2 35.0 35.0 Blood Gas 10 10 Pressure Support Blood Gas 16/12 16/12 IPAP/EPAP Ratio Blood Gas [facility] Notified Whom Blood Gas 12/12/2018 9:03: 12/13/2018 8:43: Notified Time 20 PM 25 AM Blood Gas KFARLESS R.N. Critical Value Read Back White Blood 15.8 H Count Red Blood Count 3.24 #L Hemoglobin 9.8 #L Hematocrit 31.3 #L Mean 96.6 Corpuscular Volume Mean 30.2 Corpuscular Hemoglobin Mean 31.3 L Corpuscular Hemoglobin Conc ent Red Cell 16.9 H Distribution Width Platelet Count 223 Mean Platelet 11.2 H Volume Immature 1.200 H Granulocytes % Neutrophils % 89.6 H Lymphocytes % 3.3 L Monocytes % 5.8 Eosinophils % 0.0 Basophils % 0.1 Nucleated Red 2.5 H Blood Cells % Immature 0.190 H Granulocytes # Neutrophils # 14.2 H Lymphocytes # 0.5 L Monocytes # 0.9 Eosinophils # 0.0 Basophils # 0.0 Nucleated Red 0.4 H Blood Cells # Prothrombin 18.9 H Time Prothrombin 1.5 Time Ratio INR 1.57 International Normalized Rati o Activated 36.3 H Partial Thrombo plast Time Sodium Level 142 Potassium Level 4.4 Chloride Level 109 Carbon Dioxide 22 Level Anion Gap 11 Blood Urea 77 H Nitrogen Creatinine 2.88 H Est Glomerular Filtrat Rate mL/min Glucose Level 109 # Calcium Level 8.3 L Magnesium Level 2.8 H Test 12/13/18 10:56 Procalcitonin 0.36 H Medications Medications Current Medications Ondansetron HCl (Zofran Inj) 4 mg ER BRIDGE PRN IV NAUSEA/VOMITING; Start 12/12/18 at 16:30; Stop 12/13/18 at 16:29 Acetaminophen (Tylenol Tab) 650 mg ER BRIDGE PRN PO .MILD PAIN 1-3 OR TEMP; Start 12/12/18 at 16:30; Stop 12/13/18 at 16:29 Sodium Chloride 1,000 ml @ 100 mls/hr Q10H IV Last administered on 12/13/18at 13:33; Admin Dose 100 MLS/HR; Start 12/13/18 at 00:30 Norepinephrine 16 mg/Dextrose 250 ml @ 0.94 mls/hr TITRATE IV Last administered on 12/13/18at 01:12; Admin Dose 1.78 MLS/HR; Start 12/12/18 at 23:30 Vancomycin HCl (Vanco Iv Per Pharmacy) VANCOMYCIN PER PHARMACY PER PROTOCOL XX ; Start 12/12/18 at 23:30 Famotidine (Pepcid Iv) 20 mg DAILY@0600 IV Last administered on 12/13/18at 06:03; Admin Dose 20 MG; Start 12/13/18 at 06:00 Miscellaneous Information (*Rx Drug Level Order Reminder*) RANDOM VANCO LEVEL... 0500 ONCE XX ; Start 12/14/18 at 05:00; Stop 12/14/18 at 05:01 Piperacillin Sod/ Tazobactam Sod 50 ml @ 100 mls/hr Q8 IVPB ; Start 12/13/18 at 14:00 LILIAN ABEBE MD December 13, 2018 13:57
--- NOTE | 2018-12-13 15:01 | CONS ---
Assessment/Plan Assessment/Plan Assessment/Plan (Daily) # ESRD Last HD 2 days ago Dialyzed via a tunneled HD catheter Fluid overload HD will be done today # Sepsis UTI r/o catheter related sepsis BC pending Continue Vancomycin and Zosyn # Respiratory failure Stable on BiPAP Pleural effusion Pulmonary congestion History of aspiration Possible PNA # Atrial fibrillation controlled rate # Severe anemia Hb improved post transfusion r/o GI blood loss Stool OB Protonix Iron studies EPO Monitor Consultation Date/Type/Reason Admit Date/Time December 12, 2018 at 17:19 Type of Consult Nephrology Date/Time of Note DATE: 12/13/18 TIME: 14:47 Hx of Present Illness The patient is an 83 year old female with ESRD (started on HD one month ago), last HD 2 days ago. She was transferred for a SNF yesterday and admitted with sepsis, severe anemia and respiratory failure. She was transfused last night due to Hb 6.1. She was initially hypotensive, requiring Levophed - now maintaining BP off pressors. Urine culture is growing enterococcus. She is currently on BiPAP. Chest xray shows a right pleural effusion and pulmonary congestion. She has a history of aspiration and is fed via a G-tube. The patient is awake, denies discomfort. She is not able to give any history. History was obtained from her God-daughter who is at the bedside. Past Medical History Medical History: congestive heart failure, hypertension, other (atrial fibrillation) Home Meds Reported Medications Tuberculin,Purif.prot.deriv. (Tubersol) 5 Tub Unit/0.1 Ml Vial, 5 TUB ID ONCE, VIAL ONLY FOR PPD TEST#2 FOR 1 DAY 12/12/18 Sertraline Hcl* (Zoloft*) 50 Mg Tablet, 75 MG GTB DAILY, #30 TAB 12/12/18 Acetaminophen* (Tylenol*) 325 Mg Tablet, 650 MG GTB Q4H PRN for MILD PAIN LEVEL 1-3, TAB 12/12/18 Trazodone Hcl* (Trazodone Hcl*) 50 Mg Tablet, 50 MG GTB QHS, #60 TAB 12/12/18 Tramadol Hcl* (Ultram*) 50 Mg Tablet, 25 MG GTB Q8H PRN for PAIN 4-1010, TAB 12/12/18 Levothyroxine Sodium* (Synthroid*) 100 Mcg Tablet, 100 MCG GTB BEFORE BREAKFAST, #30 TAB 12/12/18 Famotidine* (Famotidine*) 20 Mg Tablet, 20 MG GTB BID, #30 TAB 12/12/18 [Nephro-Nevin] No Conflict Check, 1 TAB GTB DAILY 12/12/18 Saccharomyces Boulardii* (Florastor*) 250 Mg Cap, 250 MG GTB DAILY, CAP 12/12/18 Apixaban* (Eliquis*) 2.5 Mg Tablet, 2.5 MG GTB BID, TAB 12/12/18 Bisacodyl* (Dulcolax*) 5 Mg Tablet.dr, 5 MG GTB Q12H, TAB 12/12/18 Clonidine Patch (CATAPRES PATCH) Unknown Strength Patch, 1 PATCH TD Q WED, #4 PATCH.WK HOLD FOR SBP<110 12/12/18 Diltiazem Hcl* (Cardizem*) 30 Mg Tablet, 30 MG GTB BID, #60 TAB HOLD FOR SBP<110 OR HR<60 12/12/18 Ipratropium-Albuterol (Ipratropium-Albuterol) 0.5-3 Mg/3 Ml Ampul.neb, 3 ML INHALATION Q6, #30 VIAL 12/12/18 Lorazepam* (Ativan*) 0.5 Mg Tablet, 0.5 MG GTB Q8 PRN for ANXIETY, #60 TAB 12/12/18 Atenolol* (Atenolol*) 25 Mg Tablet, 25 MG GTB BID, #30 TAB HOLD FOR SBP<110 OR HR<60 12/12/18 Albuterol Sulfate* (Albuterol Sulfate* Neb) 0.083%-3 Ml Neb, 2.5 MG NEB Q6H PRN for WHEEZING AND SOB, #30 VIAL 12/12/18 Discontinued Reported Medications Montelukast Sodium* (Montelukast Sodium*) 10 Mg Tablet, 10 MG PO QHS, #30 TAB 11/18/15 Levothyroxine Sodium* (Levothyroxine Sodium*) 100 Mcg Tablet, 100 MCG PO DAILY, #1 03/13/11 Discontinued Scripts Nystatin* (Nystop*) 15 Gm Powder, 1 APPLIC TOP BID for 30 Days, #60 PACKET Prov:MORGAN SNOW MD- 07/21/17 Balsam [place] Oil (Venelex Ointment) 60 Gm Oint..gm., 1 APPLIC TOP BID for 30 Days, #60 GM Prov:MORGAN SNOW 07/21/17 Pantoprazole* (Pantoprazole*) 40 Mg Tablet.dr, 40 MG PO BID@06,18 for 30 Days, #60 Prov:MORGAN SNOW 07/21/17 Docusate Sodium (Dok) 100 Mg Capsule, 100 MG PO Q12H PRN for CONSTIPATION for 30 Days, #60 CAP Prov:MORGAN SNOW 07/21/17 Sertraline Hcl* (Sertraline Hcl*) 50 Mg Tablet, 25 MG PO DAILY for 30 Days, #30 TAB Prov:MORGAN SNOW 07/21/17 Carvedilol* (Carvedilol*) 6.25 Mg Tablet, 6.25 MG PO BID for 30 Days, #60 TAB Prov:MORGAN SNOW 07/21/17 Apixaban* (Eliquis*) 5 Mg Tablet, 2.5 MG PO BID for 30 Days, #60 TAB Prov:MORGAN SNOW 07/21/17 Hydralazine Hcl* (Hydralazine Hcl*) 50 Mg Tab, 100 MG PO Q8 for 30 Days, #180 TAB Prov:MORGAN SNOW 07/21/17 Atorvastatin Calcium (Atorvastatin Calcium) 10 Mg Tab, 10 MG PO HS for 30 Days, #30 TAB Prov:MORGAN SNOW 07/21/17 Medications Current Medications Ondansetron HCl (Zofran Inj) 4 mg ER BRIDGE PRN IV NAUSEA/VOMITING; Start 12/12/18 at 16:30; Stop 12/13/18 at 16:29 Acetaminophen (Tylenol Tab) 650 mg ER BRIDGE PRN PO .MILD PAIN 1-3 OR TEMP; Start 12/12/18 at 16:30; Stop 12/13/18 at 16:29 Sodium Chloride 1,000 ml @ 100 mls/hr Q10H IV Last administered on 12/13/18at 13:33; Admin Dose 100 MLS/HR; Start 12/13/18 at 00:30 Norepinephrine 16 mg/Dextrose 250 ml @ 0.94 mls/hr TITRATE IV Last administered on 12/13/18at 01:12; Admin Dose 1.78 MLS/HR; Start 12/12/18 at 23:30 Vancomycin HCl (Vanco Iv Per Pharmacy) VANCOMYCIN PER PHARMACY PER PROTOCOL XX ; Start 12/12/18 at 23:30 Famotidine (Pepcid Iv) 20 mg DAILY@0600 IV Last administered on 12/13/18at 06:03; Admin Dose 20 MG; Start 12/13/18 at 06:00 Miscellaneous Information (*Rx Drug Level Order Reminder*) RANDOM VANCO LEVEL... 0500 ONCE XX ; Start 12/14/18 at 05:00; Stop 12/14/18 at 05:01 Piperacillin Sod/ Tazobactam Sod 50 ml @ 100 mls/hr Q8 IVPB ; Start 12/13/18 at 14:00 Allergies: Coded Allergies: No Known Allergies (Verified Allergy, Unknown, 12/12/18) Past Surgical History Past Surgical Hx: noncontributory Family History Significant Family History: no pertinent family hx Social History Alcohol Use: none Smoking Status: Unknown if ever smoked Drug Use: none Exam/Review of Systems Exam Vitals Vital Signs Date Temp Pulse Resp B/P (MAP) Pulse Ox O2 O2 Flow FiO2 Time Delivery Rate 12/13/18 82 25 107/73 100 13:45 (84) 12/13/18 BIPAP 13:00 12/13/18 98.9 12:00 12/13/18 35 11:20 12/12/18 2.0 17:00 Intake and Output 12/12/18 12/12/18 12/13/18 1515:00 23:00 07:00 IntakeIntake Total 147.12 ml OutputOutput Total 0 ml BalanceBalance 147.12 ml Constitutional: alert Head: normocephalic, atraumatic, other (BiPAP mask in place) Neck: supple; No jvd Respiratory: other (decrease breath sounds bases) Cardiovascular: irregular rhythm Gastrointestinal: soft Extremities: edema Results Result Diagram: 12/13/18 0801 12/13/18 08 Results 24hrs Laboratory Tests Test 12/12/18 14:54 12/12/18 15:15 12/12/18 17:07 12/12/18 18:00 Bedside Glucose 238 H Urine Color YELLOW Urine Clarity TURBID A Urine pH 5.0 Urine Specific 1.025 [place] Urine Ketones NEGATIVE Urine Nitrite NEGATIVE Urine Bilirubin NEGATIVE Urine NEGATIVE Urobilinogen Urine Leukocyte 1+ H Esterase Urine > 182 H Microscopic RBC Urine > 182 H Microscopic WBC Urine Squamous MANY A Epithelial Cell s Urine Bacteria MANY A Urine Mucus MODERATE Urine Yeast MANY A (Budding) Urine 2+ H Hemoglobin Urine Glucose NEGATIVE Urine Total 2+ H Protein Urine Opiates Negative Screen Urine Negative Barbiturates Urine Negative Amphetamines Screen Urine Negative Benzodiazepines Screen Urine Cocaine Negative Screen Urine Negative Cannabinoids POC Venous 2.9 *H Lactate Blood Gas Blood Specimen arterial Source Arterial Blood 12/12/2018 4:15 Date Drawn :00 PM Arterial Blood 7.190 *L pH (Temp corrected ) Arterial Blood 66.8 H pCO2 (Temp correct) Arterial Blood 209.9 H pO2 (Temp corrected ) Arterial Blood 24.9 HCO3 Arterial Blood -3.2 L Base Excess Arterial Blood 99.5 Oxygen Saturati on [place] Test ACCEPTAB Arterial Blood Left Radial Gas Puncture Site Arterial 0.2 Blood Carboxyhe moglobin Arterial Blood 0.2 Methemoglobin Oxyhemoglobin 99.1 H Percent Blood Gas 37.0 Temperature Blood Gas NASAL CANNULA Modality FiO2 30.0 Blood Gas ERIC Carpio Critical Value Read Back Blood Gas [facility] Notified Whom Blood Gas 12/12/2018 4:17 Notified Time :00 PM Test 12/12/18 19:01 12/12/18 19:03 12/12/18 20:04 12/12/18 20:40 Lactic Acid 6.9 *H 7.1 *H Level Blood Gas Blood arterial Blood Specimen arterial Source Arterial Blood 12/12/2018 7:00: 12/12/2018 8:50 Date Drawn 19 PM :29 PM Arterial Blood 7.265 *L 7.303 L pH (Temp corrected ) Arterial Blood 52.6 H 47.6 H pCO2 (Temp correct) Arterial Blood 106.8 H 140.2 H pO2 (Temp corrected ) Arterial Blood 23.3 23.1 HCO3 Arterial Blood -3.5 L -3.3 L Base Excess Arterial Blood 97.1 98.6 Oxygen Saturati on [place] Test ACCEPTAB ACCEPTAB Arterial Blood Right Radial Right Radial Gas Puncture Site Arterial 0.4 0.5 Blood Carboxyhe moglobin Arterial Blood 0.2 0 Methemoglobin Blood Gas A-a 81.6 H 54.0 H O2 Differential Oxyhemoglobin 96.5 98.1 Percent Blood Gas 37.0 37.0 Temperature Blood Gas 18.0 18.0 Respiration Rate Blood Gas 27 22 Actual Respiration Rat e Blood Gas MASK - BIPAP MASK - BIPAP Modality FiO2 35.0 35.0 Blood Gas 10 10 Pressure Support Blood Gas 18/8 15 IPAP/EPAP Ratio Blood Gas DR REYES Critical Value Read Back Blood Gas [facility] Notified Whom Blood Gas 12/12/2018 7:12: 12/12/2018 9:03 Notified Time 23 PM :20 PM Test 12/13/18 07:00 12/13/18 08:01 12/13/18 10:56 Blood Gas Blood arterial Specimen Source Arterial Blood 12/13/2018 8:38: Date Drawn 20 AM Arterial Blood 7.290 *L pH (Temp corrected ) Arterial Blood 45.3 H pCO2 (Temp correct) Arterial Blood 96.2 H pO2 (Temp corrected ) Arterial Blood 21.3 L HCO3 Arterial Blood -5.1 L Base Excess Arterial Blood 96.5 Oxygen Saturati on [place] Test ACCEPTAB Arterial Blood Right Radial Gas Puncture Site Arterial 0.4 Blood Carboxyhe moglobin Arterial Blood 0.1 Methemoglobin Blood Gas A-a 100.7 H O2 Differential Oxyhemoglobin 96.0 Percent Blood Gas 37.0 Temperature Blood Gas 18.0 Respiration Rate Blood Gas 22 Actual Respiration Rat e Blood Gas MASK - BIPAP Modality FiO2 35.0 Blood Gas 10 Pressure Support Blood Gas 16/12 IPAP/EPAP Ratio Blood Gas KFARLESS R.N. Critical Value Read Back Blood Gas [facility] Notified Whom Blood Gas 12/13/2018 8:43: Notified Time 25 AM White Blood 15.8 H Count Red Blood Count 3.24 #L Hemoglobin 9.8 #L Hematocrit 31.3 #L Mean 96.6 Corpuscular Volume Mean 30.2 Corpuscular Hemoglobin Mean 31.3 L Corpuscular Hemoglobin Conc ent Red Cell 16.9 H Distribution Width Platelet Count 223 Mean Platelet 11.2 H Volume Immature 1.200 H Granulocytes % Neutrophils % 89.6 H Lymphocytes % 3.3 L Monocytes % 5.8 Eosinophils % 0.0 Basophils % 0.1 Nucleated Red 2.5 H Blood Cells % Immature 0.190 H Granulocytes # Neutrophils # 14.2 H Lymphocytes # 0.5 L Monocytes # 0.9 Eosinophils # 0.0 Basophils # 0.0 Nucleated Red 0.4 H Blood Cells # Prothrombin 18.9 H Time Prothrombin 1.5 Time Ratio INR 1.57 International Normalized Rati o Activated 36.3 H Partial Thrombo plast Time Sodium Level 142 Potassium Level 4.4 Chloride Level 109 Carbon Dioxide 22 Level Anion Gap 11 Blood Urea 77 H Nitrogen Creatinine 2.88 H Est Glomerular Filtrat Rate mL/min Glucose Level 109 # Lactic Acid 1.0 Level Calcium Level 8.3 L Magnesium Level 2.8 H Procalcitonin 0.36 H Medications Medication Current Medications Ondansetron HCl (Zofran Inj) 4 mg ER BRIDGE PRN IV NAUSEA/VOMITING; Start 12/12/18 at 16:30; Stop 12/13/18 at 16:29 Acetaminophen (Tylenol Tab) 650 mg ER BRIDGE PRN PO .MILD PAIN 1-3 OR TEMP; Start 12/12/18 at 16:30; Stop 12/13/18 at 16:29 Sodium Chloride 1,000 ml @ 100 mls/hr Q10H IV Last administered on 12/13/18at 13:33; Admin Dose 100 MLS/HR; Start 12/13/18 at 00:30 Norepinephrine 16 mg/Dextrose 250 ml @ 0.94 mls/hr TITRATE IV Last administered on 12/13/18at 01:12; Admin Dose 1.78 MLS/HR; Start 12/12/18 at 23:30 Vancomycin HCl (Vanco Iv Per Pharmacy) VANCOMYCIN PER PHARMACY PER PROTOCOL XX ; Start 12/12/18 at 23:30 Famotidine (Pepcid Iv) 20 mg DAILY@0600 IV Last administered on 12/13/18at 06:03 ; Admin Dose 20 MG; Start 12/13/18 at 06:00 Miscellaneous Information (*Rx Drug Level Order Reminder*) RANDOM VANCO LEVEL... 0500 ONCE XX ; Start 12/14/18 at 05:00; Stop 12/14/18 at 05:01 Piperacillin Sod/ Tazobactam Sod 50 ml @ 100 mls/hr Q8 IVPB ; Start 12/13/18 at 14:00 HUSSEIN PITTS MD December 13, 2018 15:01
[2018-12-13] MEDS: PIPER-TAZO 2.25 GM (PMX) 50 ML IVPB SCH ×2 (15:07→22:05)
--- NOTE | 2018-12-13 17:18 | CONS ---
DATE OF ADMISSION: 12/12/2018 DATE OF CONSULTATION: 12/13/2018 TYPE OF CONSULTATION: Cardiology. REFERRING PHYSICIAN: Katie Eduardo MD REASON FOR EVALUATION: Hypertension. HISTORY OF PRESENT ILLNESS: Ms. Cornejo is an 83-year-old woman known to me from prior admission las t time at [facility] who has a history of hypertension, dyslipidemia, prior history o f atrial flutter with RVR, history of hypothyroidism, history of recurrent pleural effusion, who was recently hospitalized at [facility]. She was discharged and resides at [facility] when she became hypotensive and shortness of breath and came here. The patient was hypotensive. She was treated with Levophed. It is fairly likely that she has been transiently bacteremic. The p atient's blood pressure has been better controlled now. I have been asked to see patient in consulta tion because of her hypertension and cardiac history. Currently, the patient is with better hemodyna fransisco status. She is much less alert than prior. The patient does not appear to be in heart failure b y my examination and she is receiving IV fluid hydration. The patient is in atrial fibrillation on e xamination which was noted prior with very low voltage EKG, which I believe was described before. Fo r now, conservative therapy was expected. We will try to rate control and pursue anticoagulation str ategy as necessary. PAST MEDICAL HISTORY: 1. Hypertension. 2. Dyslipidemia. 3. History of coronary artery disease. 4. History of atrial fibrillation. 5. History of current debilitated state. 6. History of pleural effusion. 7. History of altered mental status recently. ALLERGIES: NO KNOWN DRUG ALLERGIES. SOCIAL HISTORY: The patient smoked. Does not drink. Does not use drugs. FAMILY HISTORY: Positive for diabetes and hypertension. MEDICATIONS: Here include: 1. Zosyn. 2. Famotidine. 3. Levophed. REVIEW OF SYSTEMS: CONSTITUTIONAL: No fevers, no chills, but decompensated mental status and hypotension. HEENT: No changes in vision or hearing. CARDIAC: No chest pain reported. RESPIRATORY: Short of breath, acute on chronic. GASTROINTESTINAL: No nausea, vomiting, diarrhea, constipation. GENITOURINARY: No dysuria, hematuria. NEUROLOGIC: No focal neurological deficit. HEMATOLOGIC: No easy bruising. PSYCHIATRIC: No history of psychiatric illness. PHYSICAL EXAMINATION: VITAL SIGNS: Temperature is 99.6, heart rate 82 now, blood pressure 107/70. GENERAL: She is thin woman in no acute distress, alert and oriented x0 to 1, not really aware of her condition, slow response to verbal stimuli at time. HEAD: She has a face mask on. NECK: Supple. JVD is 6 to 7 cm. There is no lymphadenopathy. HEART: Irregularly irregular with soft holosystolic murmur. PMI is minimally displaced. There is n o S3. LUNGS: Coarse wheezing. ABDOMEN: Distended. Bowel sounds are present. There is no hepatosplenomegaly. GENITOURINARY: Intact. EXTREMITIES: No clubbing, cyanosis or edema. LABORATORY DATA: ECG read by me shows atrial fibrillation with low voltage and some nonspecific ST-T changes. LABORATORY DATA: show white blood cell count of 15.8, hemoglobin was 6.1 on presentation now 9.8, pl atelets 223. LFTs acid was 7.1. Sodium 142, potassium 4.4, BUN is 77, creatinine 0.8. Troponin was 0.147 on presentation. ASSESSMENT AND PLAN: 1. Hypotension. The patient's hypotension is likely in setting of bacteremia and anemia. She respo nded somewhat to treatment now. Continue antibiotic and supportive care. 2. Atrial fibrillation. The patient has atrial fibrillation now. She was anemic. I think it is re asonable to hold off on anticoagulation therapy now, investigating the cause of anemia. We will jimmy tor clinically. 3. Hypertension. Blood pressure is now on the low side. Blood pressure medicines are held. 4. History of congestive heart failure. To my recall, the patient was with heart failure. I do not recall if it was systolic or diastolic, but patient will follow up with a 2D echo, also reasonable t leslie to rule out infection. 5. Prior history of pleural effusion with a prior history of thoracentesis. Defer to pulmonary team for further evaluation and management. 6. Respiratory failure, now on BiPAP, appears to be tolerating well. I would like to thank Dr. Eduardo, for referring this patient for my evaluation. Dictated By: LILIAN ABEBE MD ML/NTS Conf#: [id number] DID#: [id number] CC: YAZMIN VARGAS MD; KATIE EDUARDO MD;*EndCC*
[2018-12-14] VITALS (82 sets, daily range): BP systolic 85–118; BP diastolic 48–79; PULSE 62–104; RESP 14–42
--- NOTE | 2018-12-14 06:47 | CONS ---
Assessment/Plan Assessment/Plan Hospital Course (Demo Recall) 1) sepsis (hypotension which has improved) pt came in with respiratory acidosis but now we see some metabolic acidosis too pt has hx of vomiting and CXR shows haziness of R lung, will start treatment for possible aspiration pneumonia continue with vanco and start zosyn and check procalcitonin get nasal for MRSA 12/14 - initial procalcitonin was marginally elevated but likely this is due to her ESRD repeat procalcitonin is pending but if it remains marginally elevated will likely d/c zosyn soon will order chest u/s to quantify her pleural effusion on R pt remains off pressors 2) ESRD haziness of R lung may just be excess fluid for pt pt has recent hx of UTI but is not producing any urine u/a and urine cx have been sent off already though 12/14 - pt has enterococcal UTI, sensitive to Vanco but not amp/pcn continue with vanco at present 3) CO2 retention pt is on biPAP with improvement noted on ABG 12/14 - to order chest u/s 4) anemia check stool for OB pt has been transfused 5) AMS likely metabolic encephalopathy, 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4 00:00 12/12/18 2.0 17:00 Intake and Output 12/13/18 12/13/18 12/14/18 1515:00 23:00 07:00 IntakeIntake Total 500 ml 500 ml 175 ml OutputOutput Total 0 ml 0 ml BalanceBalance 500 ml 500 ml 175 ml Constitutional: alert Respiratory: clear to auscultation Cardiovascular: regular rate and rhythm Gastrointestinal: soft, non-tender, bowel sounds Results Result Diagram: 12/13/18 0801 12/13/18 0801 Results 24hrs Laboratory Tests Test 12/13/18 07:00 12/13/18 07:54 12/13/18 08:01 12/13/18 10:56 Blood Gas Blood arterial Specimen Source Arterial Blood 12/13/2018 8:38:2 Date Drawn 0 AM Arterial Blood pH 7.290 *L (Temp corrected) Arterial Blood 45.3 H pCO2 (Temp correct) Arterial Blood 96.2 H pO2 (Temp corrected) Arterial Blood 21.3 L HCO3 Arterial Blood -5.1 L Base Excess Arterial Blood 96.5 Oxygen Saturation [place] Test ACCEPTAB Arterial Blood Right Radial Gas Puncture Site Arterial 0.4 Blood Carboxyhemo globin Arterial Blood 0.1 Methemoglobin Blood Gas A-a O2 100.7 H Differential Oxyhemoglobin 96.0 Percent Blood Gas 37.0 Temperature Blood Gas 18.0 Respiration Rate Blood Gas Actual 22 Respiration Rate Blood Gas MASK - BIPAP Modality FiO2 35.0 Blood Gas 10 Pressure Support Blood Gas 15/5 IPAP/EPAP Ratio Blood Gas KFARLESS R.N. Critical Value Read Back Blood Gas MDA Notified Whom Blood Gas 12/13/2018 8:43:2 Notified Time 5 AM Hepatitis B NEGATIVE Surface Antigen Hepatitis B Core NEGATIVE Total Antibody Hepatitis C NEGATIVE Antibody White Blood Count 15.8 H Red Blood Count 3.24 #L Hemoglobin 9.8 #L Hematocrit 31.3 #L Mean Corpuscular 96.6 Volume Mean Corpuscular 30.2 Hemoglobin Mean Corpuscular 31.3 L Hemoglobin Concen t Red Cell 16.9 H Distribution Width Platelet Count 223 Mean Platelet 11.2 H Volume Immature 1.200 H Granulocytes % Neutrophils % 89.6 H Lymphocytes % 3.3 L Monocytes % 5.8 Eosinophils % 0.0 Basophils % 0.1 Nucleated Red 2.5 H Blood Cells % Immature 0.190 H Granulocytes # Neutrophils # 14.2 H Lymphocytes # 0.5 L Monocytes # 0.9 Eosinophils # 0.0 Basophils # 0.0 Nucleated Red 0.4 H Blood Cells # Prothrombin Time 18.9 H Prothrombin Time 1.5 Ratio INR International 1.57 Normalized Ratio Activated 36.3 H Partial Thrombopl ast Time Sodium Level 142 Potassium Level 4.4 Chloride Level 109 Carbon Dioxide 22 Level Anion Gap 11 Blood Urea 77 H Nitrogen Creatinine 2.88 H Est Glomerular Filtrat Rate mL/min Glucose Level 109 # Lactic Acid Level 1.0 Calcium Level 8.3 L Magnesium Level 2.8 H Procalcitonin 0.36 H Medications Medication Current Medications Norepinephrine 16 mg/Dextrose 250 ml @ 0.94 mls/hr TITRATE IV Last administered on 12/13/18at 01:12; Admin Dose 1.78 MLS/HR; Start 12/12/18 at 23:30 Vancomycin HCl (Vanco Iv Per Pharmacy) VANCOMYCIN PER PHARMACY PER PROTOCOL XX ; Start 12/12/18 at 23:30 Famotidine (Pepcid Iv) 20 mg DAILY@0600 IV Last administered on 12/13/18at 06:03; Admin Dose 20 MG; Start 12/13/18 at 06:00 Piperacillin Sod/ Tazobactam Sod 50 ml @ 100 mls/hr Q8 IVPB Last administered on 12/13/18at 22:05; Admin Dose 100 MLS/HR; Start 12/13/18 at 14:00 Epoetin Dank-epbx (RETACRIT(esrd)) 10,000 unit MoWeFr@1700 SC ; Start 12/14/18 at 17:00 KYLE DOUGLAS MD December 14, 2018 06:47
[2018-12-14] MEDS ORDERED: HEPARIN 1000 UNITS/ML 10 ML INJ CATHETER SCH (07:30)
--- NOTE | 2018-12-14 07:45 | CONS ---
Assessment/Plan Assessment/Plan Problems: (1) ESRD on dialysis Comment: just started 2-3 weeks ago.. 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 just finished this am...stable BP now (2) Hypercapnic respiratory failure Status: Acute Comment: on BiPap... less responsive, tho Qualifiers: Chronicity: acute on chronic Qualified Codes: J96.22 - Acute and chronic respiratory failure with hypercapnia (3) Symptomatic anemia Status: Acute Comment: s/p PRBCs with good response (4) Severe sepsis Status: Acute Comment: on abx (5) Urinary tract infection Status: Acute Comment: etiology for sepsis Qualifiers: Urinary tract infection type: acute cystitis Hematuria presence: with hematuria Qualified Codes: N30.01 - Acute cystitis with hematuria (6) Atrial fibrillation with RVR Status: Chronic Comment: rate controlled currently Consultation Date/Type/Reason Admit Date/Time December 12, 2018 at 17:19 Type of Consult Nephrology Date/Time of Note DATE: 12/14/18 TIME: 07:38 Hx of Present Illness patient on BiPap in the ICU.. just finished dialysis Exam/Review of Systems Vital Signs Vitals Vital Signs Date Temp Pulse Resp B/P (MAP) Pulse Ox O2 O2 Flow FiO2 Time Delivery Rate 12/14/18 72 06:00 12/14/18 111/56 BIPAP 06:00 (74) 12/14/18 100 35 05:30 12/14/18 98.5 04:00 12/12/18 2.0 17:00 Intake and Output 12/13/18 12/13/18 12/14/18 1515:00 23:00 07:00 IntakeIntake Total 500 ml 500 ml 175 ml OutputOutput Total 0 ml 0 ml 400 ml BalanceBalance 500 ml 500 ml -225 ml Exam Constitutional: non-verbal Head: normocephalic Neck: supple Respiratory: diminished breath sounds, other (permacath Rt chest) Cardiovascular: regular rate and rhythm, irregular rhythm Gastrointestinal: soft, nl liver, spleen Extremities: edema (none) Labs Result Diagram: 12/13/18 0801 12/13/18 0801 Results 24hrs Laboratory Tests Test 12/13/18 07:54 12/13/18 08:01 12/13/18 10:56 Hepatitis B Surface Antigen NEGATIVE Hepatitis B Core Total Antibody NEGATIVE Hepatitis C Antibody NEGATIVE White Blood Count 15.8 H Red Blood Count 3.24 #L Hemoglobin 9.8 #L Hematocrit 31.3 #L Mean Corpuscular Volume 96.6 Mean Corpuscular Hemoglobin 30.2 Mean Corpuscular Hemoglobin Concent 31.3 L Red Cell Distribution Width 16.9 H Platelet Count 223 Mean Platelet Volume 11.2 H Immature Granulocytes % 1.200 H Neutrophils % 89.6 H Lymphocytes % 3.3 L Monocytes % 5.8 Eosinophils % 0.0 Basophils % 0.1 Nucleated Red Blood Cells % 2.5 H Immature Granulocytes # 0.190 H Neutrophils # 14.2 H Lymphocytes # 0.5 L Monocytes # 0.9 Eosinophils # 0.0 Basophils # 0.0 Nucleated Red Blood Cells # 0.4 H Prothrombin Time 18.9 H Prothrombin Time Ratio 1.5 INR International Normalized Ratio 1.57 Activated Partial Thromboplast Time 36.3 H Sodium Level 142 Potassium Level 4.4 Chloride Level 109 Carbon Dioxide Level 22 Anion Gap 11 Blood Urea Nitrogen 77 H Creatinine 2.88 H Est Glomerular Filtrat Rate mL/min Glucose Level 109 # Lactic Acid Level 1.0 Calcium Level 8.3 L Magnesium Level 2.8 H Procalcitonin 0.36 H Medications Medications Current Medications Norepinephrine 16 mg/Dextrose 250 ml @ 0.94 mls/hr TITRATE IV Last administered on 12/13/18at 01:12; Admin Dose 1.78 MLS/HR; Start 12/12/18 at 23:30 Vancomycin HCl (Vanco Iv Per Pharmacy) VANCOMYCIN PER PHARMACY PER PROTOCOL XX ; Start 12/12/18 at 23:30 Famotidine (Pepcid Iv) 20 mg DAILY@0600 IV Last administered on 12/13/18at 06:03; Admin Dose 20 MG; Start 12/13/18 at 06:00 Piperacillin Sod/ Tazobactam Sod 50 ml @ 100 mls/hr Q8 IVPB Last administered on 12/13/18at 22:05; Admin Dose 100 MLS/HR; Start 12/13/18 at 14:00 Epoetin Dank-epbx (RETACRIT(esrd)) 10,000 unit MoWeFr@1700 SC ; Start 12/14/18 at 17:00 Heparin Sodium (Porcine) (Heparin (1000 Units/ml)) 3,200 unit AFTER DIALYSIS CATHETER ; Start 12/14/18 at 07:30 NAILA COOPER MD December 14, 2018 07:45
--- NOTE | 2018-12-14 08:00 | CONS ---
Consult Date/Type/Reason Admit Date/Time December 12, 2018 at 17:19 Initial Consult Date 12/13/18 Date/Time of Note DATE: 12/14/18 TIME: 07:57 Subjective NO acute events - BP better - s/p complete HD now - tolerated well- still poorly communicative - family at bedside - aware of care. Per nurse: no F/C/n/v - HR better, BP stable of pressors - no obvious CP Objective Vitals Vital Signs Date Temp Pulse Resp B/P (MAP) Pulse Ox O2 O2 Flow FiO2 Time Delivery Rate 12/14/18 67 07:15 12/14/18 111/56 BIPAP 06:00 (74) 12/14/18 100 35 05:30 12/14/18 98.5 04:00 12/12/18 2.0 17:00 Intake and Output 12/13/18 12/13/18 12/14/18 1515:00 23:00 07:00 IntakeIntake Total 500 ml 500 ml 175 ml OutputOutput Total 0 ml 0 ml 400 ml BalanceBalance 500 ml 500 ml -225 ml Exam General: WN/WD/NAD, AOx 0 - eyes open HEENT: Unicetric/atraumatic/EOMI (does not follow commands) - FM on NECK: JVD elevated, no thyromegaly Lymph: no lymphadenopathy HEART: irregular with no S3, II/ systolic murmur at apex LUNGS: Coarse sounds ABD: soft, NT, ND, +BS : Intact Neuro: non focal SKIN: chronic changes EXT: trace edema Results/Medications Result Diagram: 12/13/18 0801 12/13/18 0801 Results 24 hrs Laboratory Tests Test 12/13/18 08:01 12/13/18 10:56 White Blood Count 15.8 H Red Blood Count 3.24 #L Hemoglobin 9.8 #L Hematocrit 31.3 #L Mean Corpuscular Volume 96.6 Mean Corpuscular Hemoglobin 30.2 Mean Corpuscular Hemoglobin Concent 31.3 L Red Cell Distribution Width 16.9 H Platelet Count 223 Mean Platelet Volume 11.2 H Immature Granulocytes % 1.200 H Neutrophils % 89.6 H Lymphocytes % 3.3 L Monocytes % 5.8 Eosinophils % 0.0 Basophils % 0.1 Nucleated Red Blood Cells % 2.5 H Immature Granulocytes # 0.190 H Neutrophils # 14.2 H Lymphocytes # 0.5 L Monocytes # 0.9 Eosinophils # 0.0 Basophils # 0.0 Nucleated Red Blood Cells # 0.4 H Prothrombin Time 18.9 H Prothrombin Time Ratio 1.5 INR International Normalized Ratio 1.57 Activated Partial Thromboplast Time 36.3 H Sodium Level 142 Potassium Level 4.4 Chloride Level 109 Carbon Dioxide Level 22 Anion Gap 11 Blood Urea Nitrogen 77 H Creatinine 2.88 H Est Glomerular Filtrat Rate mL/min Glucose Level 109 # Lactic Acid Level 1.0 Calcium Level 8.3 L Magnesium Level 2.8 H Procalcitonin 0.36 H Home Meds Reported Medications Tuberculin,Purif.prot.deriv. (Tubersol) 5 Tub Unit/0.1 Ml Vial, 5 TUB ID ONCE, VIAL ONLY FOR PPD TEST#2 FOR 1 DAY 12/12/18 Sertraline Hcl* (Zoloft*) 50 Mg Tablet, 75 MG GTB DAILY, #30 TAB 12/12/18 Acetaminophen* (Tylenol*) 325 Mg Tablet, 650 MG GTB Q4H PRN for MILD PAIN LEVEL 1-3, TAB 12/12/18 Trazodone Hcl* (Trazodone Hcl*) 50 Mg Tablet, 50 MG GTB QHS, #60 TAB 12/12/18 Tramadol Hcl* (Ultram*) 50 Mg Tablet, 25 MG GTB Q8H PRN for PAIN 4-05/13, TAB 12/12/18 Levothyroxine Sodium* (Synthroid*) 100 Mcg Tablet, 100 MCG GTB BEFORE BREAKFAST, #30 TAB 12/12/18 Famotidine* (Famotidine*) 20 Mg Tablet, 20 MG GTB BID, #30 TAB 12/12/18 [Nephro-Nevin] No Conflict Check, 1 TAB GTB DAILY 12/12/18 Saccharomyces Boulardii* (Florastor*) 250 Mg Cap, 250 MG GTB DAILY, CAP 12/12/18 Apixaban* (Eliquis*) 2.5 Mg Tablet, 2.5 MG GTB BID, TAB 12/12/18 Bisacodyl* (Dulcolax*) 5 Mg Tablet.dr, 5 MG GTB Q12H, TAB 12/12/18 Clonidine Patch (CATAPRES PATCH) Unknown Strength Patch, 1 PATCH TD Q WED, #4 PATCH.WK HOLD FOR SBP<110 12/12/18 Diltiazem Hcl* (Cardizem*) 30 Mg Tablet, 30 MG GTB BID, #60 TAB HOLD FOR SBP<110 OR HR<60 12/12/18 Ipratropium-Albuterol (Ipratropium-Albuterol) 0.5-3 Mg/3 Ml Ampul.neb, 3 ML INHALATION Q6, #30 VIAL 12/12/18 Lorazepam* (Ativan*) 0.5 Mg Tablet, 0.5 MG GTB Q8 PRN for ANXIETY, #60 TAB 12/12/18 Atenolol* (Atenolol*) 25 Mg Tablet, 25 MG GTB BID, #30 TAB HOLD FOR SBP<110 OR HR<60 12/12/18 Albuterol Sulfate* (Albuterol Sulfate* Neb) 0.083%-3 Ml Neb, 2.5 MG NEB Q6H PRN for WHEEZING AND SOB, #30 VIAL 12/12/18 Discontinued Reported Medications Montelukast Sodium* (Montelukast Sodium*) 10 Mg Tablet, 10 MG PO QHS, #30 TAB 11/18/15 Levothyroxine Sodium* (Levothyroxine Sodium*) 100 Mcg Tablet, 100 MCG PO DAILY, #1 03/13/11 Discontinued Scripts Nystatin* (Nystop*) 15 Gm Powder, 1 APPLIC TOP BID for 30 Days, #60 PACKET Prov:MORGAN SNOW MD- 07/21/17 Balsam Janis/[place] Oil (Venelex Ointment) 60 Gm Oint..gm., 1 APPLIC TOP BID for 30 Days, #60 GM Prov:MORGAN SNOW MD- 07/21/17 Pantoprazole* (Pantoprazole*) 40 Mg Tablet.dr, 40 MG PO BID@,18 for 30 Days, #60 Prov:MORGAN SNOW 07/21/17 Docusate Sodium (Dok) 100 Mg Capsule, 100 MG PO Q12H PRN for CONSTIPATION for 30 Days, #60 CAP Prov:MORGAN SNOW 07/21/17 Sertraline Hcl* (Sertraline Hcl*) 50 Mg Tablet, 25 MG PO DAILY for 30 Days, #30 TAB Prov:MORGAN SNOW 07/21/17 Carvedilol* (Carvedilol*) 6.25 Mg Tablet, 6.25 MG PO BID for 30 Days, #60 TAB Prov:MORGAN SNOW MD- 07/21/17 Apixaban* (Eliquis*) 5 Mg Tablet, 2.5 MG PO BID for 30 Days, #60 TAB Prov:MORGAN SNOW MD- 07/21/17 Hydralazine Hcl* (Hydralazine Hcl*) 50 Mg Tab, 100 MG PO Q8 for 30 Days, #180 TAB Prov:MORGAN SNOW MD- 07/21/17 Atorvastatin Calcium (Atorvastatin Calcium) 10 Mg Tab, 10 MG PO HS for 30 Days, #30 TAB Prov:MORGAN SNOW MD- 07/21/17 Medications Current Medications Norepinephrine 16 mg/Dextrose 250 ml @ 0.94 mls/hr TITRATE IV Last administered on 12/13/18at 01:12; Admin Dose 1.78 MLS/HR; Start 12/12/18 at 23:30 Vancomycin HCl (Vanco Iv Per Pharmacy) VANCOMYCIN PER PHARMACY PER PROTOCOL XX ; Start 12/12/18 at 23:30 Famotidine (Pepcid Iv) 20 mg DAILY@0600 IV Last administered on 12/13/18at 06:03; Admin Dose 20 MG; Start 12/13/18 at 06:00 Piperacillin Sod/ Tazobactam Sod 50 ml @ 100 mls/hr Q8 IVPB Last administered on 12/13/18at 22:05; Admin Dose 100 MLS/HR; Start 12/13/18 at 14:00 Epoetin Dank-epbx (RETACRIT(esrd)) 10,000 unit MoWeFr@1700 SC ; Start 12/14/18 at 17:00 Heparin Sodium (Porcine) (Heparin (1000 Units/ml)) 3,200 unit AFTER DIALYSIS CATHETER Last administered on 12/14/18at 07:53; Admin Dose 3,200 UNIT; Start 12/14/18 at 07:30 Assessment/Plan Hospital Course (Demo Recall) 1. Hypotension. The patient's hypotension is likely in setting of bacteremia and anemia. She responded somewhat to treatment now. Continue antibiotic and supportive care. Responded to care - off pressors, BP stable low 100s SBP with HD. 2. Atrial fibrillation. The patient has atrial fibrillation now. She was anemic. I think it is reasonable to hold off on anticoagulation therapy now, investigating the cause of anemia. We will monitor clinically. SCD/TEDS now for DVT prophylaxis. 3. Hypertension. Blood pressure is now on the low side. Blood pressure medicines are held. Con't anti-B, better. 4. History of congestive heart failure. To my recall, the patient was with heart failure. I do not recall if it was systolic or diastolic, but patient will follow up with a 2D echo, also reasonable thing to rule out infection. Will review ECHO. 5. Prior history of pleural effusion with a prior history of thoracentesis. Defer to pulmonary team for further evaluation and management. STabl. 6. Respiratory failure, now on BiPAP, appears to be tolerating well. Improving. LILIAN ABEBE MD December 14, 2018 08:00
--- NOTE | 2018-12-14 08:40 | PN ---
DATE: 12/14/2018 SUBJECTIVE: The patient is feeling very weak, otherwise without complaint. OBJECTIVE: VITAL SIGNS: Temperature 98.5 axillary, respirations 19 on BiPAP, pulse 67, blood pressure 111/56, oxygen saturation 100% on BiPAP. GENERAL: Well-developed, ill-appearing female in no acute distress, lying in bed with BiPAP mask on. CHEST: Anteriorly clear to auscultation, scant crackle, decreased breath sounds, right greater than left base. HEART: Irregular. ABDOMEN: Soft, nontender. G-tube site clean, dry and intact. SKIN: Right anterior chest with Kevin catheterization. NEUROLOGIC: The patient is alert, oriented to name and situation. Attempts speech but weak. Otherwise, nonfocal. LABORATORY DATA: Pending at the time of this dictation. ASSESSMENT AND PLAN: 1. UTI with Septic shock: improved. The patient off pressure support with stable blood pressure at this time. We will continue with antibiotics. Pt with no fever, nl lactic acid now. 2. Acute on chronic hypercapnic respiratory failure, stable on BiPAP. We will continue with BiPAP, oxygen, breathing treatments and pulmonary toilet. Await repeat procalcitonin. Appreciate Dr. Guillen' input. 3. End-stage renal disease. The patient is status post dialysis this morning. Continue to monitor. Appreciate Dr. Stone and Dr. Self's input into this case. 4. Anemia. The patient is stable status post transfusion of 2 units packed red blood cells. We will continue to follow. No evidence of acute bleeding at this time. 5. Diabetes, stable without need for medications. Continue with G-tube feeding. 6. Code status. I spoke with the patient's daughter. They are interested in potentially palliative care and hospice, but we will discuss this with other family members before making full decision. They are in agreement that they do not want intubation at this time. We will make the patient DO NOT INTUBATE at this time and we will discuss further with patient and have palliative care likely see the family and the patient tomorrow. Dictated By: MORGAN SNOW MD SR/NTS Conf#: [id number] DID#: [id number] CC: YAZMIN VARGAS MD; TIMOTEO EDUARDO MD;*EndCC* MTDD
[2018-12-14] MEDS: FAMOTIDINE 20 MG INJ IV SCH (08:42)
[2018-12-14] MEDS: PIPER-TAZO 2.25 GM (PMX) 50 ML IVPB SCH ×3 (08:43→21:49)
--- NOTE | 2018-12-14 11:27 | CONS ---
Consult Date/Type/Reason Admit Date/Time December 12, 2018 at 17:19 Initial Consult Date 12/13/18 Type of Consult Pulmonary Date/Time of Note DATE: 12/14/18 TIME: 11:23 Subjective Continues bilevel ventilation. Chest x-ray and ultrasound demonstrate large right pleural effusion. No respiratory distress. Continues hemodialysis. Discussed with family at bedside do not want resuscitation. Objective Vital Signs Date Temp Pulse Resp B/P (MAP) Pulse Ox O2 O2 Flow FiO2 Time Delivery Rate 12/14/18 82 29 111/66 100 Nasal 11:00 (81) Cannula 12/14/18 35 09:14 12/14/18 97.8 08:00 12/12/18 2.0 17:00 Intake and Output 12/13/18 12/13/18 12/14/18 1515:00 23:00 07:00 IntakeIntake Total 500 ml 500 ml 200 ml OutputOutput Total 0 ml 0 ml 400 ml BalanceBalance 500 ml 500 ml -200 ml Exam GENERAL: Frail elderly lady on bilevel ventilation VITAL SIGNS: per chart NECK: Supple. No JVD or lymphadenopathy. CARDIAC EXAM: S1, S2. No added sounds or murmurs. CHEST: Diminished air entry bilaterally ABDOMEN: Soft, nontender. No guarding or rebound. EXTREMITIES: No cyanosis, clubbing or edema. NEUROLOGIC: Generalized weakness. Results/Medications Result Diagram: 12/14/18 0817 12/14/18 0817 Results 24 hrs Laboratory Tests Test 12/14/18 05:00 12/14/18 08:17 Blood Gas Specimen Source Blood arterial Arterial Blood Date Drawn 12/14/2018 9:06:03 AM Arterial Blood pH (Temp corrected) 7.341 L Arterial Blood pCO2 (Temp correct) 51.8 H Arterial Blood pO2 (Temp corrected) 115.3 H Arterial Blood HCO3 27.4 H Arterial Blood Base Excess 1.1 Arterial Blood Oxygen Saturation 97.9 [place] Test ACCEPTAB Arterial Blood Gas Puncture Site Right Radial Arterial Blood Carboxyhemoglobin 0.3 Arterial Blood Methemoglobin 0.2 Blood Gas A-a O2 Differential 74.0 H Oxyhemoglobin Percent 97.4 Blood Gas Temperature 37.0 Blood Gas Respiration Rate 18.0 Blood Gas Actual Respiration Rate 22 Blood Gas Modality MASK - BIPAP FiO2 35.0 Blood Gas Pressure Support 10 Blood Gas IPAP/EPAP Ratio 15/5 Blood Gas Notified Whom TM Blood Gas Notified Time 12/14/2018 9:14:54 AM White Blood Count 13.1 H Red Blood Count 3.09 L Hemoglobin 9.4 L Hematocrit 30.5 L Mean Corpuscular Volume 98.7 Mean Corpuscular Hemoglobin 30.4 Mean Corpuscular Hemoglobin Concent 30.8 L Red Cell Distribution Width 17.5 H Platelet Count 220 Mean Platelet Volume 10.6 H Immature Granulocytes % 1.600 H Neutrophils % 86.5 H Lymphocytes % 4.8 L Monocytes % 6.8 Eosinophils % 0.1 Basophils % 0.2 Nucleated Red Blood Cells % 1.8 H Immature Granulocytes # 0.210 H Neutrophils # 11.3 H Lymphocytes # 0.6 L Monocytes # 0.9 Eosinophils # 0.0 Basophils # 0.0 Nucleated Red Blood Cells # 0.2 H Prothrombin Time 17.8 H Prothrombin Time Ratio 1.4 INR International Normalized Ratio 1.46 Activated Partial Thromboplast Time 55.0 H Sodium Level 142 Potassium Level 3.4 L Chloride Level 106 Carbon Dioxide Level 29 Anion Gap 7 Blood Urea Nitrogen 44 #H Creatinine 1.76 #H Est Glomerular Filtrat Rate mL/min Glucose Level 125 Lactic Acid Level 0.7 Calcium Level 8.3 L Iron Level 36 Total Iron Binding Capacity 197 L Percent Iron Saturation 18 L Ferritin 1050.0 H Total Bilirubin 0.0 L Direct Bilirubin 0.00 Indirect Bilirubin 0.0 Aspartate Amino Transf (AST/SGOT) 48 H Alanine Aminotransferase (ALT/SGPT) 37 Alkaline Phosphatase 203 H Total Protein 5.7 L Albumin 2.9 L Globulin 2.80 Albumin/Globulin Ratio 1.03 Procalcitonin 0.29 H Random Vancomycin Level 5.9 Medications Current Medications Norepinephrine 16 mg/Dextrose 250 ml @ 0.94 mls/hr TITRATE IV Last administered on 12/13/18at 01:12; Admin Dose 1.78 MLS/HR; Start 12/12/18 at 23:30 Vancomycin HCl (Vanco Iv Per Pharmacy) VANCOMYCIN PER PHARMACY PER PROTOCOL XX ; Start 12/12/18 at 23:30 Famotidine (Pepcid Iv) 20 mg DAILY@0600 IV Last administered on 12/14/18at 08:42; Admin Dose 20 MG; Start 12/13/18 at 06:00 Piperacillin Sod/ Tazobactam Sod 50 ml @ 100 mls/hr Q8 IVPB Last administered on 12/14/18at 08:43; Admin Dose 100 MLS/HR; Start 12/13/18 at 14:00 Epoetin Dank-epbx (RETACRIT(esrd)) 10,000 unit MoWeFr@1700 SC ; Start 12/14/18 at 17:00 Heparin Sodium (Porcine) (Heparin (1000 Units/ml)) 3,200 unit AFTER DIALYSIS CATHETER Last administered on 12/14/18at 07:53; Admin Dose 3,200 UNIT; Start 12/14/18 at 07:30 Assessment/Plan Hospital Course (Demo Recall) IMP: 1. Status post septic Shock 2. Urosepsis 3. Hypercapnic Respiratory Failure with large right pleural effusion 4. Encephalopathy--toxic/metabolic in origin 5. ESRD on HD 6. Pulm Edema 7. B/L effusions 8. Anemia RECS: 1. Continue BiPAP; follow mental status and blood gases closely. At the moment, she is protecting her airway and is not in need of intubation. CODE STATUS changed to DNR 2. Abx per ID 3. Iyer-cultures; follow-up and de-escalate as deemed appropriate 4. Maintain NPO 5. Vasopressors to MAP >65 mm Hg 6. Follow lactate clearance 7. HD/UF 8. Transfuse PRBC as needed 9. Therapeutic right thoracentesis Discussed with family critical care time 40 minutes YAZMIN AVRGAS MD, [facility] December 14, 2018 11:27
[2018-12-14] MEDS ORDERED: VANCOMYCIN 1 GM 250 ML IVPB SCH (13:00)
[2018-12-14] MEDS ORDERED: LIDOCAINE 1% (MPF) 5 ML VIAL ONE (14:20)
[2018-12-14] MEDS ORDERED: EPOETIN ALFA-EPBX (ESRD) 10,000 UNIT/ML VIAL SC SCH (17:00)
[2018-12-15] VITALS (31 sets, daily range): BP systolic 47–115; BP diastolic 33–85; PULSE 0–118; RESP 0–49
[2018-12-15] MEDS: FAMOTIDINE 20 MG INJ IV SCH (05:37)
[2018-12-15] MEDS: PIPER-TAZO 2.25 GM (PMX) 50 ML IVPB SCH (05:37)
--- NOTE | 2018-12-15 06:35 | CONS ---
Assessment/Plan Assessment/Plan Hospital Course (Demo Recall) 1) sepsis (hypotension which has improved) pt came in with respiratory acidosis but now we see some metabolic acidosis too pt has hx of vomiting and CXR shows haziness of R lung, will start treatment for possible aspiration pneumonia continue with vanco and start zosyn and check procalcitonin get nasal for MRSA 12/14 - initial procalcitonin was marginally elevated but likely this is due to her ESRD repeat procalcitonin is pending but if it remains marginally elevated will likely d/c zosyn soon will order chest u/s to quantify her pleural effusion on R pt remains off pressors 12/15 - thorancentesis shows blood but not suggestive of infection check procalcitonin tomorrow a.m. and if still low will d/c zosyn then 2) ESRD haziness of R lung may just be excess fluid for pt pt has recent hx of UTI but is not producing any urine u/a and urine cx have been sent off already though 12/14 - pt has enterococcal UTI, sensitive to Vanco but not amp/pcn continue with vanco at present 12/15 - c.alb also in urine will re-start diflucan, continue with vanco 3) CO2 retention pt is on biPAP with improvement noted on ABG 12/14 - to order chest u/s 12/15 - on O2 via facial mask 4) anemia check stool for OB pt has been transfused 5) AMS likely metabolic encephalopathy, doubt she has a [employer] infection CT head showed no acute changes 12/14 - pt is awake and answering questions with nods of the head 12/15 - stable Consultation Date/Type/Reason Admit Date/Time December 12, 2018 at 17:19 Initial Consult Date 12/13/18 Type of Consult ID Date/Time of Note DATE: 12/15/18 TIME: 06:26 24 HR Interval Summary Free Text/Dictation pt is off biPAP pt got thorancentesis yesterday which does not show signs of infection but was bloody no V, N, D no cough Exam/Review of Systems Exam Vitals Vital Signs Date Temp Pulse Resp B/P (MAP) Pulse Ox O2 O2 Flow FiO2 Time Delivery Rate 12/15/18 89 29 102/71 100 Mask 4.0 05:00 (81) 12/15/18 98.1 04:00 12/14/18 35 09:14 Intake and Output 12/14/18 12/14/18 12/15/18 1515:00 23:00 07:00 IntakeIntake Total 450 ml 385 ml 180 ml OutputOutput Total 1200 ml BalanceBalance -750 ml 385 ml 180 ml Constitutional: alert Respiratory: clear to auscultation Cardiovascular: regular rate and rhythm Gastrointestinal: soft, non-tender Results Result Diagram: 12/15/18 0415 12/15/18 0415 Results 24hrs Laboratory Tests Test 12/14/18 08:17 12/14/18 13:47 12/14/18 13:55 12/15/18 04:15 White Blood 13.1 H 14.6 H Count Red Blood Count 3.09 L 3.23 L Hemoglobin 9.4 L 9.8 L Hematocrit 30.5 L 33.0 L Mean 98.7 102.2 H Corpuscular Volume Mean 30.4 30.3 Corpuscular Hemoglobin Mean 30.8 L 29.7 L Corpuscular Hemoglobin Conc ent Red Cell 17.5 H 18.2 H Distribution Width Platelet Count 220 262 Mean Platelet 10.6 H 11.1 H Volume Immature 1.600 H 2.200 H Granulocytes % Neutrophils % 86.5 H 82.5 H Lymphocytes % 4.8 L 5.9 L Monocytes % 6.8 9.0 Eosinophils % 0.1 0.3 Basophils % 0.2 0.1 Nucleated Red 1.8 H 2.7 H Blood Cells % Immature 0.210 H 0.320 H Granulocytes # Neutrophils # 11.3 H 12.0 H Lymphocytes # 0.6 L 0.9 Monocytes # 0.9 1.3 H Eosinophils # 0.0 0.1 Basophils # 0.0 0.0 Nucleated Red 0.2 H 0.4 H Blood Cells # Prothrombin 17.8 H Time Prothrombin 1.4 Time Ratio INR 1.46 International Normalized Rati o Activated 55.0 H Partial Thrombo plast Time Sodium Level 142 146 H Potassium Level 3.4 L 4.3 Chloride Level 106 109 Carbon Dioxide 29 28 Level Anion Gap 7 9 Blood Urea 44 #H 61 H Nitrogen Creatinine 1.76 #H 2.63 H Est Glomerular Filtrat Rate mL/min Glucose Level 125 152 Lactic Acid 0.7 Level Calcium Level 8.3 L 8.4 Iron Level 36 Total Iron 197 L Binding Capacity Percent Iron 18 L Saturation Ferritin 1050.0 H Total Bilirubin 0.0 L Direct 0.00 Bilirubin Indirect 0.0 Bilirubin Aspartate Amino 48 H Transf (AST/SGO T) Alanine 37 Aminotransferas e (ALT/SGPT) Alkaline 203 H Phosphatase Total Protein 5.7 L Albumin 2.9 L Globulin 2.80 Albumin/Globuli 1.03 n Ratio Procalcitonin 0.29 H Random 5.9 Vancomycin Level Lab Scanned BLOOD TRANSFUSI Report ON Body Fluid THORACENTESIS Type FLUID Body Fluid 925.0 Volume Body Fluid RED Color Body Fluid BLOODY Appearance Body Fluid WBC 542 Body Fluid RBC 12761 (Auto) Body Fluid 13.5 Polynuclear WBCs (%) Body Fluid 86.5 Mononuclear Cells % Auto Body Fluid 97 Glucose Body Fluid 2.6 Total Protein Body Fluid 404 Lactate Dehydro genase Test 12/15/18 04:55 Lab Scanned BLOOD TRANSFUSI Report ON Medications Medication Current Medications Norepinephrine 16 mg/Dextrose 250 ml @ 0.94 mls/hr TITRATE IV Last administered on 12/13/18 01:12; Admin Dose 1.78 MLS/HR; Start 12/12/18 at 23:30 Vancomycin HCl (Vanco Iv Per Pharmacy) VANCOMYCIN PER PHARMACY PER PROTOCOL XX ; Start 12/12/18 at 23:30 Famotidine (Pepcid Iv) 20 mg DAILY@0600 IV Last administered on 12/15/18at 05:37; Admin Dose 20 MG; Start 12/13/18 at 06:00 Piperacillin Sod/ Tazobactam Sod 50 ml @ 100 mls/hr Q8 IVPB Last administered on 12/15/18 05:37; Admin Dose 100 MLS/HR; Start 12/13/18 at 14:00 Epoetin Dank-epbx (RETACRIT(esrd)) 10,000 unit MoWeFr@1700 SC Last administered on 12/14/18 21:48; Admin Dose 10,000 UNIT; Start 12/14/18 at 17:00 Heparin Sodium (Porcine) (Heparin (1000 Units/ml)) 3,200 unit AFTER DIALYSIS CATHETER Last administered on 12/14/18 07:53; Admin Dose 3,200 UNIT; Start 12/14/18 at 07:30 KYLE DOUGLAS MD December 15, 2018 06:35
--- NOTE | 2018-12-15 07:54 | CONS ---
Assessment/Plan Assessment/Plan Problems: (1) Respiratory failure with hypercapnia Status: Acute Comment: better post HD + thoracentesis.. on FM now, off BiPaP (2) Anemia Status: Chronic Comment: hct stable post recent PRBC's (3) UTI (urinary tract infection) Status: Acute Comment: on abx...BP stable now off pressors Qualifiers: Urinary tract infection type: site unspecified Hematuria presence: without hematuria Qualified Codes: N39.0 - Urinary tract infection, site not specified (4) ESRD on dialysis Comment: for planned HD in am (5) Atrial fibrillation with RVR Status: Chronic Comment: same Consultation Date/Type/Reason Admit Date/Time December 12, 2018 at 17:19 Type of Consult Nephrology Date/Time of Note DATE: 12/15/18 TIME: 07:51 Hx of Present Illness resting comfortably on 4l FM.. Dr Storey discussing aggressiveness of care w the daughter Exam/Review of Systems Vital Signs Vitals Vital Signs Date Temp Pulse Resp B/P (MAP) Pulse Ox O2 O2 Flow FiO2 Time Delivery Rate 12/15/18 96 34 115/67 100 Mask 4.0 07:00 (83) 12/15/18 98.1 04:00 12/14/18 35 09:14 Intake and Output 12/14/18 12/14/18 12/15/18 1515:00 23:00 07:00 IntakeIntake Total 450 ml 385 ml 290 ml OutputOutput Total 1200 ml BalanceBalance -750 ml 385 ml 290 ml Exam Constitutional: distress (none on the FM) Head: normocephalic Neck: supple Respiratory: clear to auscultation Cardiovascular: irregular rhythm (AF in the 100's) Gastrointestinal: soft, other (PEG site clear) Extremities: edema (none) Labs Result Diagram: 12/15/18 0415 12/15/18 0415 Results 24hrs Laboratory Tests Test 12/14/18 08:17 12/14/18 13:47 12/14/18 13:55 12/15/18 04:15 White Blood 13.1 H 14.6 H Count Red Blood Count 3.09 L 3.23 L Hemoglobin 9.4 L 9.8 L Hematocrit 30.5 L 33.0 L Mean 98.7 102.2 H Corpuscular Volume Mean 30.4 30.3 Corpuscular Hemoglobin Mean 30.8 L 29.7 L Corpuscular Hemoglobin Conc ent Red Cell 17.5 H 18.2 H Distribution Width Platelet Count 220 262 Mean Platelet 10.6 H 11.1 H Volume Immature 1.600 H 2.200 H Granulocytes % Neutrophils % 86.5 H 82.5 H Lymphocytes % 4.8 L 5.9 L Monocytes % 6.8 9.0 Eosinophils % 0.1 0.3 Basophils % 0.2 0.1 Nucleated Red 1.8 H 2.7 H Blood Cells % Immature 0.210 H 0.320 H Granulocytes # Neutrophils # 11.3 H 12.0 H Lymphocytes # 0.6 L 0.9 Monocytes # 0.9 1.3 H Eosinophils # 0.0 0.1 Basophils # 0.0 0.0 Nucleated Red 0.2 H 0.4 H Blood Cells # Prothrombin 17.8 H Time Prothrombin 1.4 Time Ratio INR 1.46 International Normalized Rati o Activated 55.0 H Partial Thrombo plast Time Sodium Level 142 146 H Potassium Level 3.4 L 4.3 Chloride Level 106 109 Carbon Dioxide 29 28 Level Anion Gap 7 9 Blood Urea 44 #H 61 H Nitrogen Creatinine 1.76 #H 2.63 H Est Glomerular Filtrat Rate mL/min Glucose Level 125 152 Lactic Acid 0.7 Level Calcium Level 8.3 L 8.4 Iron Level 36 Total Iron 197 L Binding Capacity Percent Iron 18 L Saturation Ferritin 1050.0 H Total Bilirubin 0.0 L Direct 0.00 Bilirubin Indirect 0.0 Bilirubin Aspartate Amino 48 H Transf (AST/SGO T) Alanine 37 Aminotransferas e (ALT/SGPT) Alkaline 203 H Phosphatase Total Protein 5.7 L Albumin 2.9 L Globulin 2.80 Albumin/Globuli 1.03 n Ratio Procalcitonin 0.29 H Random 5.9 Vancomycin Level Lab Scanned BLOOD TRANSFUSI Report ON Body Fluid THORACENTESIS Type FLUID Body Fluid 925.0 Volume Body Fluid RED Color Body Fluid BLOODY Appearance Body Fluid WBC 542 Body Fluid RBC 45463 (Auto) Body Fluid 13.5 Polynuclear WBCs (%) Body Fluid 86.5 Mononuclear Cells % Auto Body Fluid 97 Glucose Body Fluid 2.6 Total Protein Body Fluid 404 Lactate Dehydro genase Test 12/15/18 04:55 Lab Scanned BLOOD TRANSFUSI Report ON Medications Medications Current Medications Norepinephrine 16 mg/Dextrose 250 ml @ 0.94 mls/hr TITRATE IV Last administered on 12/13/18at 01:12; Admin Dose 1.78 MLS/HR; Start 12/12/18 at 23:30 Vancomycin HCl (Vanco Iv Per Pharmacy) VANCOMYCIN PER PHARMACY PER PROTOCOL XX ; Start 12/12/18 at 23:30 Famotidine (Pepcid Iv) 20 mg DAILY@0600 IV Last administered on 12/15/18at 05:37; Admin Dose 20 MG; Start 12/13/18 at 06:00 Piperacillin Sod/ Tazobactam Sod 50 ml @ 100 mls/hr Q8 IVPB Last administered on 12/15/18at 05:37; Admin Dose 100 MLS/HR; Start 12/13/18 at 14:00 Epoetin Dank-epbx (RETACRIT(esrd)) 10,000 unit MoWeFr@1700 SC Last administered on 12/14/18at 21:48; Admin Dose 10,000 UNIT; Start 12/14/18 at 17:00 Heparin Sodium (Porcine) (Heparin (1000 Units/ml)) 3,200 unit AFTER DIALYSIS CATHETER Last administered on 12/14/18at 07:53; Admin Dose 3,200 UNIT; Start 12/14/18 at 07:30 Fluconazole (Diflucan) 200 mg DAILY GTB ; Start 12/15/18 at 09:00 NAILA COOPER MD December 15, 2018 07:54
[2018-12-15] MEDS ORDERED: GLUCOSE GEL 15 GRAM TUBE BUCCAL PRN (08:30)
[2018-12-15] MEDS ORDERED: GLUCAGON 1 MG INJ IM PRN (08:30)
[2018-12-15] MEDS ORDERED: GLUCOSE GEL 15 GRAM TUBE PO PRN ×2 (08:30)
[2018-12-15] MEDS ORDERED: DEXTROSE 50% 50 ML SYRINGE IV PRN ×2 (08:30)
[2018-12-15] MEDS ORDERED: FLUCONAZOLE 200 MG TAB GTB SCH (09:00)
--- NOTE | 2018-12-15 09:15 | PN ---
DATE: 12/15/2018 SUBJECTIVE: Patient feels tired but no pain. OBJECTIVE: VITAL SIGNS: Temperature 98.1, pulse 96 and irregular, respirations as high as 49, but now 34. Blood pressure 115/67, oxygen saturation 100% on 4 liter mask. CHEST: Decreased breath sounds bilateral bases, scant crackles. HEART: Irregularly irregular but tachycardic. ABDOMEN: Soft, nontender. G-tube site clean, dry and intact. NEUROLOGIC: Patient is alert and oriented x2, otherwise nonfocal. LABORATORY DATA: Sodium 146, potassium 4.3, chloride 109, bicarbonate 28, BUN of 61, creatinine 2.63, blood sugar 152, ferritin of 1050. Iron 36, TIBC of 197 and percent saturation is 18. Procalcitonin from yesterday was 0.29. White blood cell count 14.6, hemoglobin of 9.8, hematocrit 33.0, platelets 262. Paracentesis fluid shows 542 red cells, 26,000 red blood cells, 404 LDH, 2.6 protein. ASSESSMENT AND PLAN: 1. Urinary tract infection with septic shock: The patient improved on antibiotics. We will continue with ICU monitoring and antibiotics as condition remains guarded with poor prognosis. 2. Pneumonitis. The patient with possible aspiration pneumonia. We will continue with current antibiotics. Repeat procalcitonin ordered for tomorrow and will continue antibiotics, supplemental oxygen. 3. Acute on chronic hypercapnic respiratory failure. The patient remains stable on oxygen. No need for BiPAP at this time. We will continue to monitor and continue ICU monitoring. Patient's overall prognosis is poor and will have palliative care get involved in the case and speak with family as far as further aggressiveness and possible home hospice. 4. Diabetes. Patient has been on no meds for a while and currently not receiving any feeds. Will do a sliding scale of NovoLog and consider restarting G-tube feeding. 5. Anemia, stable status post transfusion. We will continue to monitor. No need for acute transfusion at this point. Dictated By: MORGAN SNOW MD SR/NTS Conf#: [id number] DID#: [id number] CC: TIMOTEO EDUARDO MD;*EndCC* MTDD
--- NOTE | 2018-12-15 11:17 | CONS ---
Consult Date/Type/Reason Admit Date/Time December 12, 2018 at 17:19 Initial Consult Date 12/13/18 Type of Consult Pulmonary Date/Time of Note DATE: 12/15/18 TIME: 11:15 Subjective Status post thoracentesis yesterday with 1 L fluid removed. Small loculated right pneumothorax. Currently stable patient somewhat lethargic this morning. Objective Vital Signs Date Temp Pulse Resp B/P (MAP) Pulse Ox O2 O2 Flow FiO2 Time Delivery Rate 12/15/18 95 08:00 12/15/18 Simple 08:00 Mask 12/15/18 34 115/67 100 4.0 07:00 (83) 12/15/18 98.1 04:00 12/14/18 35 09:14 Intake and Output 12/14/18 12/14/18 12/15/18 1515:00 23:00 07:00 IntakeIntake Total 450 ml 385 ml 290 ml OutputOutput Total 1200 ml BalanceBalance -750 ml 385 ml 290 ml Exam GENERAL: Frail elderly lady on Ventimask oxygen VITAL SIGNS: per chart NECK: Supple. No JVD or lymphadenopathy. CARDIAC EXAM: S1, S2. No added sounds or murmurs. CHEST: Diminished air entry bilaterally ABDOMEN: Soft, nontender. No guarding or rebound. EXTREMITIES: No cyanosis, clubbing or edema. NEUROLOGIC: Generalized weakness. Results/Medications Result Diagram: 12/15/18 0415 12/15/18 0415 Results 24 hrs Laboratory Tests Test 12/14/18 13:47 12/14/18 13:55 12/15/18 04:15 12/15/18 04:55 Lab Scanned BLOOD TRANSFUSI BLOOD TRANSFUS Report ON ION Body Fluid THORACENTESIS F Type LUID Body Fluid 925.0 Volume Body Fluid RED Color Body Fluid BLOODY Appearance Body Fluid WBC 542 Body Fluid RBC 89099 (Auto) Body Fluid 13.5 Polynuclear WBCs (%) Body Fluid 86.5 Mononuclear Cells % Auto Body Fluid 97 Glucose Body Fluid 2.6 Total Protein Body Fluid 404 Lactate Dehydro genase White Blood 14.6 H Count Red Blood Count 3.23 L Hemoglobin 9.8 L Hematocrit 33.0 L Mean 102.2 H Corpuscular Volume Mean 30.3 Corpuscular Hemoglobin Mean 29.7 L Corpuscular Hemoglobin Conc ent Red Cell 18.2 H Distribution Width Platelet Count 262 Mean Platelet 11.1 H Volume Immature 2.200 H Granulocytes % Neutrophils % 82.5 H Lymphocytes % 5.9 L Monocytes % 9.0 Eosinophils % 0.3 Basophils % 0.1 Nucleated Red 2.7 H Blood Cells % Immature 0.320 H Granulocytes # Neutrophils # 12.0 H Lymphocytes # 0.9 Monocytes # 1.3 H Eosinophils # 0.1 Basophils # 0.0 Nucleated Red 0.4 H Blood Cells # Sodium Level 146 H Potassium Level 4.3 Chloride Level 109 Carbon Dioxide 28 Level Anion Gap 9 Blood Urea 61 H Nitrogen Creatinine 2.63 H Est Glomerular Filtrat Rate mL/min Glucose Level 152 Calcium Level 8.4 Medications Current Medications Norepinephrine 16 mg/Dextrose 250 ml @ 0.94 mls/hr TITRATE IV Last administered on 12/13/18at 01:12; Admin Dose 1.78 MLS/HR; Start 12/12/18 at 23:30 Vancomycin HCl (Vanco Iv Per Pharmacy) VANCOMYCIN PER PHARMACY PER PROTOCOL XX ; Start 12/12/18 at 23:30 Piperacillin Sod/ Tazobactam Sod 50 ml @ 100 mls/hr Q8 IVPB Last administered on 12/15/18at 05:37; Admin Dose 100 MLS/HR; Start 12/13/18 at 14:00 Epoetin Dank-epbx (RETACRIT(esrd)) 10,000 unit MoWeFr@1700 SC Last administered on 12/14/18at 21:48; Admin Dose 10,000 UNIT; Start 12/14/18 at 17:00 Heparin Sodium (Porcine) (Heparin (1000 Units/ml)) 3,200 unit AFTER DIALYSIS CATHETER Last administered on 12/14/18at 07:53; Admin Dose 3,200 UNIT; Start 12/14/18 at 07:30 Fluconazole (Diflucan) 200 mg DAILY GTB Last administered on 12/15/18at 09:41; Admin Dose 200 MG; Start 12/15/18 at 09:00 Insulin Aspart (Novolog Insulin Pen) NOVOLOG *MILD* ALGORITHM WITH MEALS BEDTIME SC ; Start 12/15/18 at 11:30 Miscellaneous Information 1 ea NOTE XX ; Start 12/15/18 at 08:30 Glucose (Glutose) 15 gm Q15M PRN PO DECREASED GLUCOSE; Start 12/15/18 at 08:30 Glucose (Glutose) 22.5 gm Q15M PRN PO DECREASED GLUCOSE; Start 12/15/18 at 08:30 Dextrose (D50w Syringe) 25 ml Q15M PRN IV DECREASED GLUCOSE; Start 12/15/18 at 08:30 Dextrose (D50w Syringe) 50 ml Q15M PRN IV DECREASED GLUCOSE; Start 12/15/18 at 08:30 Glucagon (Glucagen) 1 mg Q15M PRN IM DECREASED GLUCOSE; Start 12/15/18 at 08:30 Glucose (Glutose) 15 gm Q15M PRN BUCCAL DECREASED GLUCOSE; Start 12/15/18 at 08:30 Famotidine (Pepcid) 20 mg DAILY GTB ; Start 12/16/18 at 09:00 Assessment/Plan Hospital Course (Demo Recall) IMP: 1. Status post septic Shock 2. Urosepsis 3. Hypercapnic Respiratory Failure with large right pleural effusion, post thoracentesis with small pneumothorax. 4. Encephalopathy--toxic/metabolic in origin 5. ESRD on HD 6. Pulm Edema 7. B/L effusions 8. Anemia RECS: 1. Continue supplemental O2 we will hold off on chest tube placement. Check arterial blood gas. 2. Abx per ID 3. Iyer-cultures; follow-up and de-escalate as deemed appropriate 4. Tube feeding as tolerated 5. Vasopressors to MAP >65 mm Hg 6. Follow lactate clearance 7. HD/UF Discussed with family critical care time 40 minutes Transfer to telemetry. Consider palliative care/hospice evaluation given family's wishes not to escalate care. YAZMIN VARGAS MD, [facility] December 15, 2018 11:17
[2018-12-15] MEDS ORDERED: INSULIN ASPART [NOVOLOG] 3 ML PEN SC SCH (11:30)
--- NOTE | 2018-12-15 11:51 | CONS ---
Consult Date/Type/Reason Admit Date/Time December 12, 2018 at 17:19 Initial Consult Date 12/13/18 Date/Time of Note DATE: 12/15/18 TIME: 11:48 Subjective Pt looks worse - had 1L thoracocentesis - CR up - family awre - overall prognosis is not great - will monitor and provide support - last HD Friday. ROS: No fever, no chills, no nausea, no vomiting, no diarrhea/constipation + sob per nurse - pt less alert Objective Vitals Vital Signs Date Temp Pulse Resp B/P (MAP) Pulse Ox O2 O2 Flow FiO2 Time Delivery Rate 12/15/18 95 08:00 12/15/18 Simple 08:00 Mask 12/15/18 34 115/67 100 4.0 07:00 (83) 12/15/18 98.1 04:00 12/14/18 35 09:14 Intake and Output 12/14/18 12/14/18 12/15/18 1515:00 23:00 07:00 IntakeIntake Total 450 ml 385 ml 290 ml OutputOutput Total 1200 ml BalanceBalance -750 ml 385 ml 290 ml Exam General: WN/WD/NAD, AOx 0 HEENT: Unicetric/atraumatic/EOMI (does not follow commands) - FM on NECK: JVD elevated, no thyromegaly Lymph: no lymphadenopathy HEART: irregular with no S3, II/ systolic murmur at apex LUNGS: Coarse sounds ABD: soft, NT, ND, +BS : Intact Neuro: non focal SKIN: chronic changes EXT: trace edema Results/Medications Result Diagram: 12/15/18 0415 12/15/18 0415 Results 24 hrs Laboratory Tests Test 12/14/18 13:47 12/14/18 13:55 12/15/18 04:15 12/15/18 04:55 Lab Scanned BLOOD TRANSFUSI BLOOD TRANSFUS Report ON ION Body Fluid THORACENTESIS F Type LUID Body Fluid 925.0 Volume Body Fluid RED Color Body Fluid BLOODY Appearance Body Fluid WBC 542 Body Fluid RBC 02641 (Auto) Body Fluid 13.5 Polynuclear WBCs (%) Body Fluid 86.5 Mononuclear Cells % Auto Body Fluid 97 Glucose Body Fluid 2.6 Total Protein Body Fluid 404 Lactate Dehydro genase White Blood 14.6 H Count Red Blood Count 3.23 L Hemoglobin 9.8 L Hematocrit 33.0 L Mean 102.2 H Corpuscular Volume Mean 30.3 Corpuscular Hemoglobin Mean 29.7 L Corpuscular Hemoglobin Conc ent Red Cell 18.2 H Distribution Width Platelet Count 262 Mean Platelet 11.1 H Volume Immature 2.200 H Granulocytes % Neutrophils % 82.5 H Lymphocytes % 5.9 L Monocytes % 9.0 Eosinophils % 0.3 Basophils % 0.1 Nucleated Red 2.7 H Blood Cells % Immature 0.320 H Granulocytes # Neutrophils # 12.0 H Lymphocytes # 0.9 Monocytes # 1.3 H Eosinophils # 0.1 Basophils # 0.0 Nucleated Red 0.4 H Blood Cells # Sodium Level 146 H Potassium Level 4.3 Chloride Level 109 Carbon Dioxide 28 Level Anion Gap 9 Blood Urea 61 H Nitrogen Creatinine 2.63 H Est Glomerular Filtrat Rate mL/min Glucose Level 152 Calcium Level 8.4 Home Meds Reported Medications Tuberculin,Purif.prot.deriv. (Tubersol) 5 Tub Unit/0.1 Ml Vial, 5 TUB ID ONCE, VIAL ONLY FOR PPD TEST#2 FOR 1 DAY 12/12/18 Sertraline Hcl* (Zoloft*) 50 Mg Tablet, 75 MG GTB DAILY, #30 TAB 12/12/18 Acetaminophen* (Tylenol*) 325 Mg Tablet, 650 MG GTB Q4H PRN for MILD PAIN LEVEL 1-3, TAB 12/12/18 Trazodone Hcl* (Trazodone Hcl*) 50 Mg Tablet, 50 MG GTB QHS, #60 TAB 12/12/18 Tramadol Hcl* (Ultram*) 50 Mg Tablet, 25 MG GTB Q8H PRN for PAIN 4-05/13, TAB 12/12/18 Levothyroxine Sodium* (Synthroid*) 100 Mcg Tablet, 100 MCG GTB BEFORE BREAKFAST, #30 TAB 12/12/18 Famotidine* (Famotidine*) 20 Mg Tablet, 20 MG GTB BID, #30 TAB 12/12/18 [Nephro-Nevin] No Conflict Check, 1 TAB GTB DAILY 12/12/18 Saccharomyces Boulardii* (Florastor*) 250 Mg Cap, 250 MG GTB DAILY, CAP 12/12/18 Apixaban* (Eliquis*) 2.5 Mg Tablet, 2.5 MG GTB BID, TAB 12/12/18 Bisacodyl* (Dulcolax*) 5 Mg Tablet.dr, 5 MG GTB Q12H, TAB 12/12/18 Clonidine Patch (CATAPRES PATCH) Unknown Strength Patch, 1 PATCH TD Q WED, #4 PATCH.WK HOLD FOR SBP<110 12/12/18 Diltiazem Hcl* (Cardizem*) 30 Mg Tablet, 30 MG GTB BID, #60 TAB HOLD FOR SBP<110 OR HR<60 12/12/18 Ipratropium-Albuterol (Ipratropium-Albuterol) 0.5-3 Mg/3 Ml Ampul.neb, 3 ML INHALATION Q6, #30 VIAL 12/12/18 Lorazepam* (Ativan*) 0.5 Mg Tablet, 0.5 MG GTB Q8 PRN for ANXIETY, #60 TAB 12/12/18 Atenolol* (Atenolol*) 25 Mg Tablet, 25 MG GTB BID, #30 TAB HOLD FOR SBP<110 OR HR<60 12/12/18 Albuterol Sulfate* (Albuterol Sulfate* Neb) 0.083%-3 Ml Neb, 2.5 MG NEB Q6H PRN for WHEEZING AND SOB, #30 VIAL 12/12/18 Discontinued Reported Medications Montelukast Sodium* (Montelukast Sodium*) 10 Mg Tablet, 10 MG PO QHS, #30 TAB 11/18/15 Levothyroxine Sodium* (Levothyroxine Sodium*) 100 Mcg Tablet, 100 MCG PO DAILY, #1 03/13/11 Discontinued Scripts Nystatin* (Nystop*) 15 Gm Powder, 1 APPLIC TOP BID for 30 Days, #60 PACKET Prov:MORGAN SNOW MD- 07/21/17 Balsam Re[place] Oil (Venelex Ointment) 60 Gm Oint..gm., 1 APPLIC TOP BID for 30 Days, #60 GM Prov:MORGAN SNOW MD- 07/21/17 Pantoprazole* (Pantoprazole*) 40 Mg Tablet.dr, 40 MG PO BID@06,18 for 30 Days, #60 Prov:MORGAN SNOW MD- 07/21/17 Docusate Sodium (Dok) 100 Mg Capsule, 100 MG PO Q12H PRN for CONSTIPATION for 30 Days, #60 CAP Prov:MORGAN SNOW 07/21/17 Sertraline Hcl* (Sertraline Hcl*) 50 Mg Tablet, 25 MG PO DAILY for 30 Days, #30 TAB Prov:MORGAN SNOW 07/21/17 Carvedilol* (Carvedilol*) 6.25 Mg Tablet, 6.25 MG PO BID for 30 Days, #60 TAB Prov:MORGAN SNOW 07/21/17 Apixaban* (Eliquis*) 5 Mg Tablet, 2.5 MG PO BID for 30 Days, #60 TAB Prov:MORGAN SNOW 07/21/17 Hydralazine Hcl* (Hydralazine Hcl*) 50 Mg Tab, 100 MG PO Q8 for 30 Days, #180 TAB Prov:MORGAN SNOW 07/21/17 Atorvastatin Calcium (Atorvastatin Calcium) 10 Mg Tab, 10 MG PO HS for 30 Days, #30 TAB Prov:MORGAN SNOW 07/21/17 Medications Current Medications Norepinephrine 16 mg/Dextrose 250 ml @ 0.94 mls/hr TITRATE IV Last administered on 12/13/18at 01:12; Admin Dose 1.78 MLS/HR; Start 12/12/18 at 23:30 Vancomycin HCl (Vanco Iv Per Pharmacy) VANCOMYCIN PER PHARMACY PER PROTOCOL XX ; Start 12/12/18 at 23:30 Piperacillin Sod/ Tazobactam Sod 50 ml @ 100 mls/hr Q8 IVPB Last administered on 12/15/18at 05:37; Admin Dose 100 MLS/HR; Start 12/13/18 at 14:00 Epoetin Dank-epbx (RETACRIT(esrd)) 10,000 unit MoWeFr@1700 SC Last administered on 12/14/18at 21:48; Admin Dose 10,000 UNIT; Start 12/14/18 at 17:00 Heparin Sodium (Porcine) (Heparin (1000 Units/ml)) 3,200 unit AFTER DIALYSIS CATHETER Last administered on 12/14/18at 07:53; Admin Dose 3,200 UNIT; Start 12/14/18 at 07:30 Fluconazole (Diflucan) 200 mg DAILY GTB Last administered on 12/15/18at 09:41; Admin Dose 200 MG; Start 12/15/18 at 09:00 Insulin Aspart (Novolog Insulin Pen) NOVOLOG *MILD* ALGORITHM WITH MEALS BEDTIME SC ; Start 12/15/18 at 11:30 Miscellaneous Information 1 ea NOTE XX ; Start 12/15/18 at 08:30 Glucose (Glutose) 15 gm Q15M PRN PO DECREASED GLUCOSE; Start 12/15/18 at 08:30 Glucose (Glutose) 22.5 gm Q15M PRN PO DECREASED GLUCOSE; Start 12/15/18 at 08:30 Dextrose (D50w Syringe) 25 ml Q15M PRN IV DECREASED GLUCOSE; Start 12/15/18 at 08:30 Dextrose (D50w Syringe) 50 ml Q15M PRN IV DECREASED GLUCOSE; Start 12/15/18 at 08:30 Glucagon (Glucagen) 1 mg Q15M PRN IM DECREASED GLUCOSE; Start 12/15/18 at 08:30 Glucose (Glutose) 15 gm Q15M PRN BUCCAL DECREASED GLUCOSE; Start 12/15/18 at 08:30 Famotidine (Pepcid) 20 mg DAILY GTB ; Start 12/16/18 at 09:00 Assessment/Plan Hospital Course (Demo Recall) 1. Hypotension. The patient's hypotension is likely in setting of bacteremia and anemia. She responded somewhat to treatment now. Continue antibiotic and supportive care. Responded to care - off pressors, BP stable low 100s SBP with HD. BP improved. 2. Atrial fibrillation. The patient has atrial fibrillation now. She was anemic. I think it is reasonable to hold off on anticoagulation therapy now, investigating the cause of anemia. We will monitor clinically. SCD/TEDS now for DVT prophylaxis. Rate overall controlled. 3. Hypertension. Blood pressure is now on the low side. Blood pressure medicines are held. Con't anti-B, better. 4. History of congestive heart failure. To my recall, the patient was with he art failure. I do not recall if it was systolic or diastolic, but patient will follow up with a 2D echo, also reasonable thing to rule out infection. Remove fluid with Hd as needed. 5. Prior history of pleural effusion with a prior history of thoracentesis. Defer to pulmonary team for further evaluation and management. STabl. 6. Respiratory failure, now on BiPAP, appears to be tolerating well. Improving. Improved post thoracocentesis - small pneumo now - on oxygen LILIAN ABEBE MD December 15, 2018 11:51
[2018-12-15] MEDS ORDERED: morphine (DRIP) 100 MG/100 ML 100 ML IV SCH (16:00)
[2018-12-16] MEDS ORDERED: FAMOTIDINE 20 MG TAB GTB SCH (09:00)
== END 2018-12-15 22:25 | disposition expired | DRG 871 ==
LOC: E/R 14:09 → ICU 17:19
PROVIDERS: ADMIT Internal Medicine; ATTEND Internal Medicine
PROC: 5A09458 Assistance with Respiratory Ventilation, 24-96 Consecutive Hours, Intermittent Positive Airway Pressure (ICD-10-PCS; principal; 2018-12-12)
PROC: 30233N1 Transfusion of Nonautologous Red Blood Cells into Peripheral Vein, Percutaneous Approach (ICD-10-PCS; 2018-12-12)
PROC: 02HV33Z Insertion of Infusion Device into Superior Vena Cava, Percutaneous Approach (ICD-10-PCS; 2018-12-13)
PROC: B548ZZA Ultrasonography of Superior Vena Cava, Guidance (ICD-10-PCS; 2018-12-13)
PROC: 5A1D70Z Performance of Urinary Filtration, Intermittent, Less than 6 Hours Per Day (ICD-10-PCS; 2018-12-14)
PROC: 0W993ZZ Drainage of Right Pleural Cavity, Percutaneous Approach (ICD-10-PCS; 2018-12-14)
DX: A41.81 Sepsis due to Enterococcus (principal); J96.22 Acute and chronic respiratory failure with hypercapnia; N18.6 End stage renal disease; G93.41 Metabolic encephalopathy; J69.0 Pneumonitis due to inhalation of food and vomit; R65.21 Severe sepsis with septic shock; D62 Acute posthemorrhagic anemia; I48.92 Unspecified atrial flutter; I13.2 Hypertensive heart and chronic kidney disease with heart failure and with stage 5 chronic kidney disease, or end stage renal disease; N30.00 Acute cystitis without hematuria; B37.41 Candidal cystitis and urethritis; B37.7 Candidal sepsis; Z99.2 Dependence on renal dialysis; D63.1 Anemia in chronic kidney disease; E78.5 Hyperlipidemia, unspecified; E03.9 Hypothyroidism, unspecified; I25.10 Atherosclerotic heart disease of native coronary artery without angina pectoris; I50.9 Heart failure, unspecified; I48.2 Chronic atrial fibrillation; E11.22 Type 2 diabetes mellitus with diabetic chronic kidney disease
CPT/HCPCS: 32555; 36430; 36569; 36600; 70450; 71045; 76604; 76937; 80048; 80053; 80202; 80307; 81001; 82728; 82803; 82945; 82962; 83540; 83605; 83615; 83735; 84145; 84157; 84484; 85025; 85610; 85730; 86704; 86709; 86803; 86850; 86900; 86901; 86920; 87045; 87070; 87081; 87086; 87102; 87116; 87340; 87400; 88104; 88305; 89051; 90935; 93005; 94660; 96374; J0692; J1644; J1815; J2270; J2543; J3370; J7030; J7040; J7070; P9016; Q5105